=== PATIENT | female | born 1950 | race Caucasian/White ===

== ENCOUNTER 2017-11-16 13:11 | Inpatient (IN) | payer MEDICAID, MEDICARE ==
[2017-11-16 14:57] LABS: BASO % 0.3 % (0.0-2.0); LYMPH # 0.9 K/uL (1.0-4.3); LYMPH % 14.2 % (20.0-40.0); MEAN CORPUSCULAR HEMOGLOBIN 32.1 pg (27.0-31.0); MEAN CORPUSCULAR HGB CONC 34.3 g/dL (33.0-37.0); MONO # 1.9 K/uL (0.0-0.8); NEUT # 3.7 K/uL (1.8-7.0); NEUT % 56.5 % (50.0-75.0); NRBC % 0.1 % (0.0-2.0); PLATELET COUNT 119 K/uL (130-400); RBC 3.64 Mil/uL (3.80-5.20); RED CELL DISTRIBUTION WIDTH 13.3 % (11.5-14.5)
[2017-11-16 15:01] LABS: HEMOGLOBIN 11.7 g/dL (11.0-16.0); MEAN CELL VOLUME 93.5 fL (81.0-99.0); WHITE BLOOD COUNT 6.5 K/uL (4.8-10.8)
[2017-11-16 15:11] LABS: ALBUMIN 3.4 g/dL (3.5-5.0); ALT/SGPT 36 U/L (9-52); AST/SGOT 35 U/L (14-36); BLOOD UREA NITROGEN 19 mg/dL (7-17); CALCIUM 9.1 mg/dl (8.6-10.4); GFR AFRICAN-AMERICAN > 60; GFR NON-AFRICAN AMERICAN > 60; MAGNESIUM 1.6 mg/dL (1.6-2.3)
[2017-11-16 15:22] LABS: CK-MB 3.41 ng/mL (0.0-3.38)
[2017-11-16 15:25] LABS: BANDS 5 % (0-2); LYMPHOCYTE 12 % (20-40); MONOCYTE 23 % (0-10); NEUTROPHIL 60 % (50-75); PLATELET ESTIMATE SLIGHTLY DECREASED (NORMAL); TOTAL CELLS COUNTED 100
--- NOTE | 2017-11-16 16:20 | CT ---
PROCEDURE: CT HEAD WITHOUT CONTRAST. HISTORY: Falls. hit head. COMPARISON: None available. TECHNIQUE: Axial computed tomography images were obtained through the head/brain without intravenous contrast. Radiation dose: Total exam DLP = 1937.94 mGy-cm. This CT exam was performed using one or more of the following dose reduction techniques: Automated exposure control, adjustment of the mA and/or kV according to patient size, and/or use of iterative reconstruction technique. FINDINGS: HEMORRHAGE: No intracranial hemorrhage. BRAIN: A defined hypodensity noted adjacent to the frontal horn of the left lateral ventricle in the left frontal lobe may represent chronic microvascular ischemic disease. The differential consideration includes subacute or chronic small infarction. Mild volume loss is noted. VENTRICLES: Unremarkable. No hydrocephalus. CALVARIUM: Unremarkable. PARANASAL SINUSES: Unremarkable as visualized. No significant inflammatory changes. MASTOID AIR CELLS: Unremarkable as visualized. No inflammatory changes. OTHER FINDINGS: None. IMPRESSION: No evidence of acute intracranial hemorrhage intracranial collection mass effect or midline shift. A defined hypodensity noted in the left frontal lobe adjacent to the frontal horn of the lateral ventricle may represent chronic microvascular ischemic disease versus subacute or chronic infarction. Diffuse atherosclerotic disease.
--- NOTE | 2017-11-16 16:40 | CT ---
PROCEDURE: CT MAXILLOFACIAL BONES WITHOUT CONTRAST HISTORY: Right face pain s/p fall COMPARISON: None TECHNIQUE: Contiguous axial CT images of the maxillofacial bones were obtained. Coronal and sagittal reformats were generated. Radiation dose: Total exam DLP = 898.81 mGy-cm. This CT exam was performed using one or more of the following dose reduction techniques: Automated exposure control, adjustment of the mA and/or kV according to patient size, and/or use of iterative reconstruction technique. FINDINGS: NASAL BONES: Unremarkable. ORBITS: Unremarkable. PARANASAL SINUSES/ MASTOIDS: Mild mucosal thickening noted at the left maxillary sinus. No evidence of air-fluid level in the sinuses. MAXILLA: Unremarkable. MANDIBLE/ TEMPOROMANDIBULAR JOINTS: Unremarkable. SKULL BASE: Unremarkable. TEMPORAL BONES: Middle ears and mastoid grossly unremarkable. OTHER FINDINGS: Mild mucosal thickening noted at the left maxillary sinus. IMPRESSION: No evidence of acute fracture at the maxillofacial bones. No evidence of hematoma or acute pathology in the facial region. Mild sinuses mucosal thickening.
--- NOTE | 2017-11-16 16:59 | C.PDOC ---
History Of Present Illness Pt fell at home today. She does not know why. She has been falling frequently recently. - HPI Time Seen by Provider: 11/16/17 13:14 Chief Complaint (Nursing): Trauma History Per: Patient, EMS Injury Occurred (Timing): Just Before Arrival Location Of Injury: Right: Elbow, Face, Hip, Left: Elbow, Hip, Leg Severity: Moderate Additional History Per: Prior Records Past Medical History Reviewed: Historical Data, Nursing Documentation, Vital Signs Vital Signs: Last Vital Signs Temp 97.3 F L 11/16/17 13:13 Pulse 100 H 11/16/17 13:13 Resp 20 11/16/17 13:13 BP 182/78 H 11/16/17 13:13 Pulse Ox 100 11/16/17 13:13 - Medical History PMH: Anxiety, Arthritis, Asthma, Bipolar Disorder, Depression, Diabetes, HTN, Hypercholesterolemia, Paranoia Surgical History: Appendectomy, Coronary Stent (PCI of the LAD with stent insertion ( [facility]) in 2007 in [place].) - [facility] Procedures EXCIS DEBRIDE OF WOUND, INFECT, OR BURN (02/06/15) INTRODUCTION OF SERUM/TOX/VACCINE INTO MUSCLE, PERC APPROACH (07/01/17) VACCINATION NEC (02/06/15) Family History: States: Unknown Family Hx - Social History Hx Tobacco Use: No Hx Alcohol Use: No Hx Substance Use: No - Immunization History Hx Tetanus Toxoid Vaccination: Yes Hx Influenza Vaccination: Yes Hx Pneumococcal Vaccination: No Review Of Systems Except As Marked, All Systems Reviewed And Found Negative. Constitutional: Negative for: Fever Cardiovascular: Negative for: Chest Pain Respiratory: Negative for: Shortness of Breath Gastrointestinal: Negative for: Vomiting, Abdominal Pain, Diarrhea Musculoskeletal: Positive for: Leg Pain (left). Negative for: Neck Pain, Back Pain Neurological: Negative for: Seizures Physical Exam - Physical Exam Appears: No Acute Distress, Chronically Ill Skin: Warm, Dry Head: No Laceration, Other (Contusion right zygoma area) Eye(s): bilateral: PERRL, EOMI Neck: Normal ROM, No Midline Cervical Tenderness, No Step Off Deformity, Supple Chest: Symmetrical, No Deformity Cardiovascular: Rhythm Regular Respiratory: Normal Breath Sounds, No Accessory Muscle Use Gastrointestinal/Abdominal: Soft, No Tenderness Back: No Vertebral Tenderness Extremity: Normal ROM, Tenderness (left leg, b/l hips, b/l elbows), No Deformity Pulses: Left Radial: Normal, Right Radial: Normal, Left Dorsalis Pedis: Normal Neurological/Psych: Oriented x3, Normal Motor ED Course And Treatment - Laboratory Results Result Diagrams: 11/16/17 14:54 11/16/17 14:54 ECG: Interpreted By Me, Viewed By Me ECG Rhythm: Sinus Rhythm, Nonspecific Changes Interpretation Of ECG: LVH Rate From EC O2 Sat by Pulse Oximetry: 100 Pulse Ox Interpretation: Normal - CT Scan/US CT head Other Rad Studies (CT/US): Read By Radiologist, Radiology Report Reviewed CT/US Interpretation: IMPRESSION: No evidence of acute intracranial hemorrhage intracranial collection mass effect or midline shift. A defined hypodensity noted in the left frontal lobe adjacent to the frontal horn of the lateral ventricle may represent chronic microvascular ischemic disease versus subacute or chronic infarction. Diffuse atherosclerotic disease. CT Facial bones Other Rad Studies (CT/US): Read By Radiologist, Radiology Report Reviewed CT/US Interpretation: IMPRESSION: No evidence of acute fracture at the maxillofacial bones. No evidence of hematoma or acute pathology in the facial region. Mild sinuses mucosal thickening. Disposition Discussed With : Cornell Lynn Comment: He accepted pt on his service. Doctor Will See Patient In The: Hospital Counseled Patient/Family Regarding: Studies Performed, Diagnosis - Disposition Disposition: HOSPITALIZED Disposition Time: 17:02 Condition: FAIR - Clinical Impression Clinical Impression: Frequent falls, Lesion of left frontal lobe of brain
--- NOTE | 2017-11-16 18:09 | RAD ---
PROCEDURE: Radiographs of the pelvis and bilateral hips HISTORY: b/l hip pain s/p fall COMPARISON: None. FINDINGS: BONES: Pelvis: Unremarkable. Right hip:Unremarkable. Left hip:Unremarkable. JOINTS: Right hip: Unremarkable. Left hip: Unremarkable. Sacroiliac Joints: Unremarkable. Pubic symphysis: Unremarkable. SOFT TISSUES: Normal. OTHER FINDINGS: None. IMPRESSION: No evidence of acute fracture or dislocation.
--- NOTE | 2017-11-16 18:18 | RAD ---
PROCEDURE: CHEST RADIOGRAPH, 1 VIEW HISTORY: Falls COMPARISON: None available. FINDINGS: LUNGS: No evidence of focal infiltrate or consolidation in the lungs. Prominent right hilum. PLEURA: No pneumothorax or pleural fluid seen. CARDIOVASCULAR: Normal. OSSEOUS STRUCTURES: No significant abnormalities. VISUALIZED UPPER ABDOMEN: Normal. OTHER FINDINGS: None. IMPRESSION: No radiographic evidence of acute pulmonary disease.
--- NOTE | 2017-11-16 18:18 | RAD ---
PROCEDURE: Radiographs of the left tibia and fibula. HISTORY: Pain s/p fall COMPARISON: None available. TECHNIQUE: Frontal and lateral views obtained. FINDINGS: BONES: No fracture or destructive lesion. JOINT SPACES: Unremarkable. OTHER FINDINGS: None. IMPRESSION: No evidence of acute fracture or dislocation.
--- NOTE | 2017-11-16 18:20 | RAD ---
PROCEDURE: Radiographs of the left elbow. HISTORY: Pain s/p fall COMPARISON: No prior. FINDINGS: BONES: Normal. No fracture. JOINTS: Normal. No osteoarthritis. SOFT TISSUES: Normal. JOINT EFFUSION: None. OTHER FINDINGS: None IMPRESSION: No evidence of acute fracture or dislocation.
[2017-11-16 18:22] LABS: SQUAMOUS EPITHIAL 1 /hpf (0-5); URINE BACTERIA FEW (<OCC); URINE BILIRUBIN NEGATIVE (NEGATIVE); URINE BLOOD 2+ (NEGATIVE); URINE CLARITY Clear (Clear); URINE COLOR Yellow (YELLOW); URINE GLUCOSE (UA) 1+ mg/dL (Normal); URINE LEUKOCYTE ESTERASE 3+ Leu/uL (Negative); URINE NITRATE POSITIVE (NEGATIVE); URINE PROTEIN 2+ mg/dL (NEGATIVE); URINE UROBILINOGEN NORMAL mg/dL (0.2-1.0)
[2017-11-16 18:24] LABS: BARBITURATES, UR NEGATIVE (NEGATIVE); BENZODIAZEPINES, UR NEGATIVE (NEGATIVE); OPIATES, UR NEGATIVE (NEGATIVE); PHENCYCLIDINE, UR NEGATIVE (NEGATIVE)
[2017-11-16] MEDS ORDERED: Potassium Chloride 20 mEq ER Tab PO STA (18:24)
[2017-11-16] MEDS ORDERED: Potassium Chloride 20 mEq ER Tab PO ONE (18:29)
[2017-11-16] MEDS: (Novolog) Insulin Aspart, Recombinant 100 u/ml 10 ml vial SC SCH (21:22)
[2017-11-16] MEDS: (Lantus) Insulin Glargine, Recombinant SC SCH (22:59)
[2017-11-17] MEDS: (Novolog) Insulin Aspart, Recombinant 100 u/ml 10 ml vial SC SCH ×4 (08:07→22:18)
[2017-11-17] MEDS ORDERED: Gadodiamide 287 mg/ml 20 ml IV ONE (11:30)
[2017-11-17] MEDS: Pantoprazole 40 mg EC Tab PO SCH (12:32)
[2017-11-17] MEDS: Potassium Chloride 20 mEq ER Tab PO SCH (12:34)
--- NOTE | 2017-11-17 13:00 | VASCLAB ---
PROCEDURE: HISTORY: Frequent falls. TIA COMPARISON: None available. TECHNIQUE: Grayscale and duplex Doppler evaluation of the cervical carotid and vertebral arteries were performed. The common carotid, carotid bifurcations and cervical Internal Carotid Artery (ICA) and proximal External Carotid Artery (ECA) were evaluated. The vertebral arteries were evaluated for gross patency and flow direction. Report prepared by Kulwant Key, BS, RVT FINDINGS: RIGHT CAROTID ARTERIES: 1. Common Carotid Artery: No significant focal plaque formation of the right common carotid artery. Maximum Peak Systolic velocity: 64 cm/sec: End-diastolic velocity 14 cm/sec. 2. Carotid Bifurcation: Calcific plaque formation. Maximum Peak Systolic velocity: 72 cm/sec: End-diastolic velocity 13 cm/sec. 3. Internal Carotid Artery: Plaque description: 3.1. Proximal Segment: Peak systolic velocity 96 cm/sec: End-diastolic velocity 12 cm/sec - % stenosis 0-15% 3.2. Middle Segment: Peak systolic velocity 106 cm/sec: End-diastolic velocity 17 cm/sec - % stenosis 0-15% 3.3. Distal Segment: Peak systolic velocity 127 cm/sec: End-diastolic velocity 18 cm/sec - % stenosis 0-15% 4. External Carotid Artery: No significant focal plaque formation. Peak systolic velocity 204 cm/sec 5. ICA/CCA Ratio: 2.0 LEFT CAROTID ARTERIES: 1. Common Carotid Artery: No significant focal plaque formation of the left common carotid artery. Maximum Peak Systolic velocity: 111 cm/sec: End-diastolic velocity 13 cm/sec. 2. Carotid Bifurcation: plaque formation. Maximum Peak Systolic velocity: 85 cm/sec: End-diastolic velocity 0 cm/sec. 3. Internal Carotid Artery: Plaque description: 3.1. Proximal Segment: Peak systolic velocity 76 cm/sec: End-diastolic velocity 15 cm/sec - % stenosis 0-15% 3.2. Middle Segment: Peak systolic velocity 79 cm/sec: End-diastolic velocity 11 cm/sec - % stenosis 0-15% 3.3. Distal Segment: Peak systolic velocity 133 cm/sec: End-diastolic velocity 13 cm/sec - % stenosis 0-15% 4. External Carotid Artery: No significant focal plaque formation. Peak systolic velocity 120 cm/sec 5. ICA/CCA Ratio: 1.2 VERTEBRAL ARTERIES: 1. Right Vertebral Artery: The right vertebral artery flow direction is antegrade. 2. Left Vertebral Artery: The left vertebral artery flow direction is antegrade. OTHER FINDINGS: 1. Right Brachial Blood pressure: 186 mmHg. 2. Left Brachial Blood pressure: 170 mmHg. IMPRESSION: RIGHT: Duplex scan does not suggest hemodynamically significant stenosis of the right extracranial carotid arteries. LEFT: Duplex scan does not suggest hemodynamically significant stenosis of the left extracranial carotid arteries.
[2017-11-17] MEDS: Ciprofloxacin 200mg/100ml D5W 100 ML IVPB SCH (13:04)
--- NOTE | 2017-11-17 14:37 | MRI ---
PROCEDURE: MRI BRAIN WITH AND WITHOUT CONTRAST HISTORY: Frequent falls, left frontal hypodensity COMPARISON: Unenhanced head CT dated 11/16/2017. TECHNIQUE: Multiplanar, multisequence MR images of the brain were obtained with and without intravenous contrast enhancement. FINDINGS: HEMORRHAGE: None DWI: No evidence of an acute or early subacute infarction. BRAIN PARENCHYMA: Diffuse cerebral atrophy chronic microangiopathy are reiterated the current MR examination with a prior left frontal lucency remarkable for a small chronic lobar infarction at the medial left frontal lobe. A large chronic lacune is seen at the right basal ganglia once again. There is no mass effect or suspicious extra-axial fluid collection identified. Diffusion-weighted imaging is somewhat limited at the level of the upper to mid brainstem, particularly at the wally, with chronic microangiopathy identified within the wally only) relative to the remainder the brainstem). Midline brain anatomy is otherwise unremarkable appearing. There is no suspicious extra-axial fluid collection or abnormal intracranial enhancement identified. VENTRICLES: Unremarkable. No hydrocephalus. CRANIUM: Unremarkable. ORBITS: Grossly unremarkable. PARANASAL SINUSES/MASTOIDS: Trace bilateral mastoiditis is questioned though this is not definite. Mucosal inflammatory changes are identified affecting bilateral frontal ethmoid and left maxillary sinuses. VASCULAR SYSTEM: Skull base flow voids intact. OTHER FINDINGS: None . IMPRESSION: Stable age related neuro degenerative changes are identified with a small left frontal lobar infarction identified as well as large chronic lacune right basal ganglia. No abnormal intracranial enhancement is appreciated throughout. Dental hardware obscures diffusion-weighted imaging somewhat.
[2017-11-17] MEDS: (Lantus) Insulin Glargine, Recombinant SC SCH (22:18)
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
--- NOTE | 2017-11-17 23:59 | CARD ---
APPROVED REPORT EKG Measurement Heart [id number] IA [id number] <Conclusion> Normal sinus rhythm Voltage criteria for left ventricular hypertrophy Abnormal ECG
[2017-11-18] MEDS: Ciprofloxacin 200mg/100ml D5W 100 ML IVPB SCH ×2 (01:10→12:45)
[2017-11-18 07:14] LABS: HEMOGLOBIN 11.7 g/dL (11.0-16.0)
[2017-11-18 07:25] LABS: MEAN CELL VOLUME 94.7 fL (81.0-99.0); MEAN CORPUSCULAR HGB CONC 33.8 g/dL (33.0-37.0); MEAN PLATELET VOLUME 10.4 fL (7.2-11.7); PLATELET COUNT 113 K/uL (130-400); RBC 3.66 Mil/uL (3.80-5.20); RED CELL DISTRIBUTION WIDTH 13.6 % (11.5-14.5); WHITE BLOOD COUNT 4.8 K/uL (4.8-10.8)
[2017-11-18 08:14] LABS: BLOOD UREA NITROGEN 15 mg/dL (7-17); CALCIUM 9.4 mg/dl (8.6-10.4); GFR AFRICAN-AMERICAN > 60; GFR NON-AFRICAN AMERICAN > 60
[2017-11-18 09:04] LABS: LYMPH # 1.2 K/uL (1.0-4.3); MONO # 1.8 K/uL (0.0-0.8); NEUT # 1.9 K/uL (1.8-7.0)
[2017-11-18 09:05] LABS: LYMPHOCYTE 25 % (20-40); MONOCYTE 37 % (0-10); NEUTROPHIL 38 % (50-75); TOTAL CELLS COUNTED 100
[2017-11-18 09:07] LABS: OVALOCYTES SLIGHT; PLATELET ESTIMATE SLIGHTLY DECREASED (NORMAL)
[2017-11-18] MEDS: Potassium Chloride 20 mEq ER Tab PO SCH (09:38)
[2017-11-18] MEDS: Pantoprazole 40 mg EC Tab PO SCH (09:38)
[2017-11-18] MEDS: (Novolog) Insulin Aspart, Recombinant 100 u/ml 10 ml vial SC SCH ×4 (09:38→22:09)
--- NOTE | 2017-11-18 12:45 | PN ---
DATE: 11/18/2017 SUBJECTIVE: The patient is seen. The patient is tolerating reduction of dose of Topamax, but she states she feels weak and she wants to go for rehab. The patient continues to have this persistent paranoid delusion that somebody is trying to hurt her. Other than that, she has been compliant with being in the hospital. No behavioral problems despite her chronic delusions. The blood sugar is now 233. She said that she is interested to go for subacute rehab, possibly the one in [facility]. PHYSICAL EXAMINATION VITAL SIGNS: Temperature is 98, pulse rate 90, blood pressure 166/82, respirations 20, oxygen sat is 100%. GENERAL: Patient is alert, verbal. She is in room conversing Tagalog with daughter and states she is feeling a little better, but still is weak. SKIN: No diaphoresis. HEENT: No headache, no dizziness. RESPIRATORY: No dyspnea. CARDIOVASCULAR: No chest pain. GASTROINTESTINAL: Patient is eating well. EXTREMITIES: Gait is unsteady with tremors. MUSCULOSKELETAL: Feels weak. NEUROLOGIC: Alert and oriented times 3. GENITOURINARY: She is complaining of dysuria, although the patient is currently receiving antibiotics for UTI. MENTAL STATUS EXAMINATION: Elderly female of [place] descent, oriented times 3. Speech is spontaneous, conversing Tagalog. Affect is reactive. Mood is calm. Thought process coherent. Thought content, has chronic paranoid delusion that somebody is trying to hurt her. This is the complaint she has for years. No suicidal or homicidal ideation. Attention and memory seems to be fair. Insight and judgment limited. Impulse control is fair at this time. ASSESSMENT AND PLAN: History of delusional disorder, paranoid type; urinary tract infection; gait dysfunction; diabetes; history of cerebrovascular accident. PLAN AND RECOMMENDATIONS: The patient was seen. Medications reviewed. Continue present management. Continue Topamax as ordered. The patient is for subacute rehab once medically cleared. Miguelangel Javier MD
--- NOTE | 2017-11-18 14:12 | CP.PCM.PN ---
Subjective - Date & Time of Evaluation Date of Evaluation: 11/18/17 Time of Evaluation: 14:10 - Subjective Subjective: Patient is still weak, with unstable gait. Evaluated by Dr Russell Arellano ( Neurologist today) and is put back on ASA 81 mg PO qd. Objective - Vital Signs/Intake and Output Vital Signs (last 24 hours): Temp Pulse Resp BP Pulse Ox 98 F 96 H 20 156/82 H 100 11/18/17 07:00 11/18/17 09:00 11/18/17 07:00 11/18/17 09:00 11/18/17 07:00 Intake and Output: 11/18/17 11/18/17 06:59 18:59 Intake Total 520 Balance 520 - Medications Medications: Current Medications Amlodipine Besylate (Norvasc) 5 mg PO DAILY [facility] Last Admin: 11/18/17 09:38 Dose: 5 mg Bupropion HCl (Wellbutrin) 200 mg PO DAILY [facility] Last Admin: 11/18/17 10:53 Dose: 200 mg Clopidogrel Bisulfate (Plavix) 75 mg PO DAILY [facility] Last Admin: 11/18/17 09:38 Dose: 75 mg Heparin Sodium (Porcine) (Heparin) 5,000 units SC Q8 [facility] Last Admin: 11/18/17 05:43 Dose: 5,000 units Ciprofloxacin (Cipro 200mg/100ml D5w) 100 mls @ 67 mls/hr IVPB Q12H [facility] Last Admin: 11/18/17 12:45 Dose: 67 mls/hr Insulin Aspart (Novolog) 0 unit SC ACHS [facility] PRN Reason: Protocol Last Admin: 11/18/17 12:44 Dose: 6 unit Insulin Glargine (Lantus) 30 unit SC [facility] Last Admin: 11/17/17 22:18 Dose: 30 units Losartan Potassium (Cozaar) 100 mg PO DAILY [facility] Last Admin: 11/18/17 09:38 Dose: 100 mg Montelukast Sodium (Singulair) 10 mg PO HS [facility] Last Admin: 11/17/17 22:17 Dose: 10 mg Pantoprazole Sodium (Protonix Ec Tab) 40 mg PO DAILY [facility] Last Admin: 11/18/17 09:38 Dose: 40 mg Potassium Chloride (K-Dur 20 Meq Er Tab) 20 meq PO DAILY [facility] Stop: 11/19/17 12:31 Last Admin: 11/18/17 09:38 Dose: 20 meq Rosuvastatin Calcium (Crestor) 5 mg PO HS [facility] Last Admin: 11/17/17 22:17 Dose: 5 mg Topiramate (Topamax) 100 mg PO HS [facility] - Labs Labs: 11/18/17 07:10 11/18/17 07:10 PT 11.0 SECONDS (9.7-12.2) 11/16/17 14:54 INR 1.0 11/16/17 14:54 APTT 32 SECONDS (21-34) 11/16/17 14:54 - Constitutional Appears: No Acute Distress, Chronically Ill - Head Exam Head Exam: NORMAL INSPECTION - Eye Exam Eye Exam: Normal appearance - ENT Exam ENT Exam: Normal Exam - Neck Exam Neck Exam: Normal Inspection - Respiratory Exam Respiratory Exam: Clear to Ausculation Bilateral, NORMAL BREATHING PATTERN - Cardiovascular Exam Cardiovascular Exam: REGULAR RHYTHM, Murmur - GI/Abdominal Exam GI & Abdominal Exam: Soft, Normal Bowel Sounds - Rectal Exam Rectal Exam: Deferred - Exam Exam: NORMAL INSPECTION - Extremities Exam Extremities Exam: Normal Inspection - Back Exam Back Exam: NORMAL INSPECTION - Neurological Exam Neurological Exam: Alert, Awake, Oriented x3 Additional comments: Unsteady gait. - Psychiatric Exam Psychiatric exam: Manic - Skin Skin Exam: Dry, Intact, Normal Color, Warm Assessment and Plan (1) Frequent falls Assessment & Plan: Being evaluated by Dr Russell Arellano ( Neurologist). Status: Acute (2) Paranoid states (delusional disorders) Assessment & Plan: Topamax dosage is being adjusted by Dr Helm( Psychiatrist). Status: Chronic (3) Insulin dependent diabetes mellitus Status: Chronic (4) Urinary tract infection Assessment & Plan: Urine culture pending. Continue Cipro IV. Status: Acute
--- NOTE | 2017-11-18 15:08 | CON ---
DATE: NEUROLOGY CONSULTATION REASON FOR CONSULTATION: Frequent falls. HISTORY OF PRESENTING ILLNESS: The patient is a 67-year-old female who has been asked for evaluation of frequent falls. Apparently the patient fell the other day and that is why she came to the hospital. Patient states she was trying to get out of the bed and walk when she felt that something pushed her and she fell down. She has been falling on and off. Patient had a recent stroke and after that her gait has gotten impaired. She denies any focal weakness on arms or legs. At present, denies having any dizziness or chest pain. She walks with the help of a cane. REVIEW OF SYSTEMS: Denies any headache, dizziness, chest pain, shortness of breath, abdominal pain, constipation, diarrhea, dysuria, cough or sputum production. PAST MEDICAL HISTORY: Includes arthritis, asthma, bipolar disorder, depression, diabetes mellitus, hypertension, hypercholesterolemia. MEDICATIONS AT HOME: Included Plavix, Wellbutrin, Lipitor, Norvasc, topiramate, Protonix, Benicar, Singulair and insulin. ALLERGIES: PENICILLIN. SOCIAL HISTORY: Denies smoking, use of alcohol or illicit drugs. FAMILY HISTORY: Reviewed and noncontributory to the case. PHYSICAL EXAMINATION: GENERAL: Patient is an elderly female, sitting, in no acute distress. VITAL SIGNS: Her blood pressure is 166/83, heart rate is 87 per minute, breathing at a rate of 16 per minute, temperature is 98 degrees Fahrenheit. HEENT: Head is normocephalic and atraumatic. NECK: Supple. There are no carotid bruits. LUNGS: Clear. CARDIOVASCULAR SYSTEM: S1, S2 audible. No murmurs. ABDOMEN: Soft, nontender. Bowel sounds present. NEUROLOGIC: Mental status: Patient is awake, alert, oriented to time, place and person. Speech is fluent. Naming and repetition normal. Memory and cognition are intact. Cranial nerves: Pupils are 3 mm bilaterally reactive to light. Visual maya are full. Extraocular movements are intact. There is no facial asymmetry. She is moving all 4 extremities symmetrically. Power appears to be 5/5 all over. Reflexes 1+ and symmetrical with absent ankle jerks. Plantars downgoing bilaterally. Cerebellar: [id number] shows no dysmetria. Gait is slow and slightly unsteady. Romberg is negative. Sensory: There is slight decreased vibration in feet. LABORATORY DATA: Reviewed, shows WBC of 4.8, hemoglobin 11.7, hematocrit 34.6 and platelets of 113. Sodium is 133, potassium 4.1, chloride of 103, carbon dioxide content of 24, BUN of 15, creatinine 0.9 and glucose of 233. She had MRI of the brain done, which shows stable age-related neuro degenerative changes with small left frontal lobar infarction identified as well as large chronic , right basal ganglia. There are no abnormal intracranial enhancement. IMPRESSION: 1. Frequent falls with gait dysfunction. 2. Cerebrovascular disease with old cerebrovascular accident. RECOMMENDATIONS: 1. Patient to have an electroencephalogram. 2. Patient to have physical therapy for gait imbalance. 3. Patient to be continued on antiplatelet agent, which she was on at home. At the moment, she is on Plavix, which is to be continued. 4. Patient also to be continued on statin. 5. Patient is a good candidate for rehabilitation placement for her gait training. 6. Please continue supportive care and other treatment. Thank you for the opportunity to participate in the care of this patient. Russell Arellano MD
--- NOTE | 2017-11-18 21:32 | EEG ---
DATE: This is an EEG report. INTRODUCTION: This is a digitally recorded EEG monitoring using the standard EEG montages. BACKGROUND RHYTHM: The EEG shows a background activity of 9 to 10 Hz alpha activity in parietooccipital region. The EEG activity is bilaterally symmetrical and synchronous. There is attenuation of the background activity on eye opening. Drowsiness was noted by slowing of the background activity. No sleep recording was noted. ABNORMAL POTENTIALS: No spike, sharp waves or focal slowing was seen. PHOTIC STIMULATION AND HYPERVENTILATION: Photic stimulation did not reveal any abnormality. Hyperventilation was not performed. IMPRESSION: Normal electroencephalogram. No epileptiform activity is seen in this electroencephalogram recording. Russell Arellano MD
[2017-11-18] MEDS: (Lantus) Insulin Glargine, Recombinant SC SCH (22:10)
[2017-11-19] MEDS: Ciprofloxacin 200mg/100ml D5W 100 ML IVPB SCH ×2 (01:30→12:21)
[2017-11-19] MEDS: (Novolog) Insulin Aspart, Recombinant 100 u/ml 10 ml vial SC SCH ×3 (08:21→17:15)
[2017-11-19] MEDS: Potassium Chloride 20 mEq ER Tab PO SCH (09:25)
[2017-11-19] MEDS: Pantoprazole 40 mg EC Tab PO SCH (09:25)
--- NOTE | 2017-11-19 12:00 | PN ---
DATE: 11/19/2017 NEUROLOGY PROGRESS NOTE SUBJECTIVE: The patient is lying on the bed in no acute distress. Denies any headache. Complains of occasional dizziness. PHYSICAL EXAMINATION VITAL SIGNS: Her blood pressure is 168/81, heart rate is 73 per minute, breathing at the rate of 16 per minute, temperature is 97.9 degree Fahrenheit. HEENT: Normocephalic and atraumatic. NECK: Supple. There are no carotid bruits. LUNGS: Clear. CARDIOVASCULAR: S1 and S2, audible. No murmurs. ABDOMEN: Soft and nontender with bowel sounds present. NEUROLOGIC: Mental status: The patient is awake, alert, and oriented to time, place and person. Speech is fluent. Naming and repetition normal. Memory and cognition are intact. Cranial Nerve Examination: Pupils are 3 mm bilaterally, reactive to light. Visual maya are full. Extraocular movements are intact. There is no facial asymmetry. Palate is upgoing bilaterally and tongue is midline. Motor Examination: Tone is normal. Power is 4-5/5 bilaterally in all extremities. Plantars are downgoing bilaterally. Gait remains unsteady. IMPRESSION: 1. Frequent falls with gait dysfunction. 2. Cerebrovascular disease with old cerebrovascular accident. 3. Occasional dizziness. RECOMMENDATIONS: 1. Patient had an electroencephalogram, which was normal. 2. Patient to continue to have physical therapy for gait and balance. 3. Patient is on Plavix, which is to be continued. 4. Patient also to be continued on statin. 5. If patient continues to have dizziness, we will consider trial of meclizine. 6. Patient is a good candidate for rehabilitation placement. 7. Please continue other treatments and supportive care. Thank you for the opportunity to participate in the care of this patient. Russell Arellano MD
[2017-11-19 15:51] VITALS: BP 120/71; RESP 18; TEMP 98.4; O2SAT 98
[2017-11-19 16:56] VITALS: PULSE 74
--- NOTE | 2017-11-19 18:21 | PN ---
DATE: 11/19/2017 SUBJECTIVE: The patient is seen. The patient is feeling much better, awaiting medical clearance. The patient will be possibly transferred to [facility] for subacute rehab. Psych jose, the patient is close to baseline. She has been compliant with her medications and has chronic paranoid delusions but redirectable. She has been complaint with care. PHYSICAL EXAMINATION: VITAL SIGNS: Temperature is 97.9, pulse rate is 84, blood pressure is 168/81, respirations 20, and oxygen sat is 100% on room air. REVIEW OF SYSTEMS: GENERAL: The patient is alert and oriented x3, seen in her room. She states she is worried about her soiled clothes that need to be washed at home. The patient states she might be going to [facility] for subacute rehab. SKIN: No diaphoresis. HEENT: No headache. No dizziness. NECK: Supple. RESPIRATORY: No dyspnea. CARDIOVASCULAR: No chest pain. GASTROINTESTINAL: She is eating well. EXTREMITIES: Gait is still weak. No tremors. MUSCULOSKELETAL: Feels weak. NEUROLOGIC: Alert and oriented x3. GENITOURINARY: Not complaining of dysuria or hematuria. MENTAL STATUS EXAMINATION: Elderly female of [place] descent, oriented x3. Mood is calm. Affect is reactive. Speech is spontaneous. Thought process coherent. Thought content, still has chronic paranoid delusion that somebody is trying to do bad things to her. No suicidal thought or ideation. No hallucinations. Attention and memory seem to be fair. Insight and judgement limited. Impulse control is fair at this time. IMPRESSION: History of urinary tract infection as well as delusional disorder, paranoid type. PLAN AND RECOMMENDATION: The patient is seen. Meds reviewed. Continue present psych meds. The patient is for subacute rehab to [facility] once medically cleared. The patient also is taking antibiotics for her UTI. Psych jose, the patient is stable to be transferred to [facility] once medically cleared. She has chronic paranoid delusion, but this has been going on for many years and the patient is manageable without any antipsychotics. Miguelangel Javier MD [facility] # [id number]
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
== END 2017-11-19 21:28 | DRG 92 ==
LOC: C.ER 13:11 → C.9E 17:03 → C.6T 17:22
PROVIDERS: ADMIT Internal Medicine Cardiovascular Disease; ATTEND Internal Medicine Cardiovascular Disease
DX: R29.6 Repeated falls (principal); N39.0 Urinary tract infection, site not specified; E11.42 Type 2 diabetes mellitus with diabetic polyneuropathy; I69.354 Hemiplegia and hemiparesis following cerebral infarction affecting left non-dominant side; F22 Delusional disorders; F60.0 Paranoid personality disorder; I10 Essential (primary) hypertension; R27.0 Ataxia, unspecified; F31.9 Bipolar disorder, unspecified; I25.10 Atherosclerotic heart disease of native coronary artery without angina pectoris; E78.5 Hyperlipidemia, unspecified; M17.0 Bilateral primary osteoarthritis of knee; E78.00 Pure hypercholesterolemia, unspecified; M81.0 Age-related osteoporosis without current pathological fracture; Z79.4 Long term (current) use of insulin; Z79.82 Long term (current) use of aspirin; Z79.899 Other long term (current) drug therapy; Z87.440 Personal history of urinary (tract) infections; Z87.891 Personal history of nicotine dependence; Z95.5 Presence of coronary angioplasty implant and graft

== ENCOUNTER 2017-11-23 12:06 | Inpatient (IN) | payer MEDICARE ==
[2017-11-23 12:08] VITALS: BMI 33.0
[2017-11-23] MEDS ORDERED: Sodium Chloride 0.9% 1,000 ML IV ONE (12:31)
--- NOTE | 2017-11-23 12:38 | C.PDOC ---
History Of Present Illness Patient brought in by EMS from [facility] for evaluation of tachycardia and anxiety, as per EMS and transfer forms. Patient complains she feels weak, has been vomiting for 3 days. She complains of back pain, points to bilateral flanks and hips. She reports decreased appetite and unable to keep fluids down. She states she has no bowel movement for 3 days, but is passing gas. Denies any falls, fever or trauma. Patient has history of CVA with a left hemiparesis in 2003, IDDM, Bipolar disorder with paranoia. Time Seen by Provider: 11/23/17 12:21 Chief Complaint (Nursing): Abdominal Pain History Per: Patient History/Exam Limitations: no limitations Onset/Duration Of Symptoms: Days Past Medical History Reviewed: Historical Data, Nursing Documentation, Vital Signs Vital Signs: Last Vital Signs Temp 97.6 F 11/23/17 16:08 Pulse 99 H 11/23/17 16:08 Resp 20 11/23/17 16:08 BP 165/80 H 11/23/17 16:08 Pulse Ox 99 11/23/17 16:08 - Medical History PMH: Anxiety, Arthritis, Asthma, Bipolar Disorder, Depression, Diabetes, HTN, Hypercholesterolemia, Osteoporosis, Paranoia Surgical History: Appendectomy, Coronary Stent (PCI of the LAD with stent insertion ( [facility]) in 2007 in [place].) - [facility] Procedures EXCIS DEBRIDE OF WOUND, INFECT, OR BURN (02/06/15) INTRODUCTION OF SERUM/TOX/VACCINE INTO MUSCLE, PERC APPROACH (07/01/17) VACCINATION NEC (02/06/15) Family History: States: No Known Family Hx - Social History Hx Tobacco Use: No Hx Alcohol Use: No Hx Substance Use: No - Immunization History Hx Tetanus Toxoid Vaccination: Yes Hx Influenza Vaccination: Yes Hx Pneumococcal Vaccination: Yes Review Of Systems Except As Marked, All Systems Reviewed And Found Negative. Constitutional: Positive for: Weakness. Negative for: Fever Cardiovascular: Negative for: Chest Pain Respiratory: Negative for: Shortness of Breath Gastrointestinal: Positive for: Vomiting Musculoskeletal: Positive for: Back Pain Neurological: Negative for: Numbness Physical Exam - Physical Exam Appears: Non-toxic, Chronically Ill, Other (Dehydrated) Skin: Warm, Dry, No Rash Head: Atraumatic, Normacephalic Eye(s): bilateral: Normal Inspection, PERRL, EOMI Oral Mucosa: Moist Lips: Other (Dry) Chest: Symmetrical, No Tenderness Cardiovascular: Rhythm Regular, No Murmur Respiratory: Normal Breath Sounds, No Rales, No Rhonchi, No Stridor, No Wheezing Gastrointestinal/Abdominal: Bowel Sounds (active), Soft, No Tenderness, No Guarding, Other (obese) Extremity: Normal ROM, Other (chronic vascular changes to bilateral legs) Neurological/Psych: Oriented x3, Normal Speech Gait: Unable To Assess ED Course And Treatment - Laboratory Results Result Diagrams: 11/23/17 12:51 11/23/17 12:51 O2 Sat by Pulse Oximetry: 98 (RA) Pulse Ox Interpretation: Normal - CT Scan/US CT - Abd & Pelvis Other Rad Studies (CT/US): Read By Radiologist, Radiology Report Reviewed CT/US Interpretation: PROCEDURE: CT Abdomen and Pelvis without intravenous contrast. HISTORY: Bilateral flank pain and left hip pain. COMPARISON: None. TECHNIQUE: Technique. Unenhanced study. Neither oral nor intravenous contrast administered. Radiation dose: Total exam DLP = 101.10 mGy-cm. This CT exam was performed using one or more of the following dose reduction techniques: Automated exposure control, adjustment of the mA and/or kV according to patient size, and/or use of iterative reconstruction technique. FINDINGS: LOWER THORAX: Moderate-size hiatal hernia. LIVER: Unremarkable. No gross lesion or ductal dilatation. GALLBLADDER AND BILE DUCTS: Unremarkable. PANCREAS: Unremarkable. No gross lesion or ductal dilatation. SPLEEN: Unremarkable. ADRENALS: Right adrenal gland: Unremarkable. No mass. Left adrenal gland: Cystic well-circumscribed mass 2 cm mean Hounsfield unit values 0.25. KIDNEYS AND URETERS: Unremarkable. No hydronephrosis. No solid mass. VASCULATURE: Unremarkable. No aortic aneurysm. BOWEL: Constipation without fecal impaction or obstruction. APPENDIX: No abnormalities to suggest acute appendicitis. No right lower quadrant inflammatory processes identified. PERITONEUM: Unremarkable. No free fluid. No free air. LYMPH NODES: Unremarkable. No enlarged lymph nodes. BLADDER: Unremarkable. REPRODUCTIVE: Unremarkable. BONES: No acute fracture. OTHER FINDINGS: None. IMPRESSION: No acute findings related to/accounting for the clinical presentation. Additional benign and/or incidental findings described above. Medical Decision Making Medical Decision Making: Impression: Vomiting, dehydration Prior records reviewed patient was seen and admitted on 11/16/17 for frequent falls, UTI Plan: * Labs * IV NS, Zofran * CT Progress Lab reviewed Sodium low. Patient reevaluated and states she feels minimally better, she feels weak and does not want to go back to [place]. She asks to contact her doctor. [id number] Liban Lynn to discuss case. Ok to keep for observation, continue with fluids. Disposition - Disposition Disposition: HOSPITALIZED Disposition Time: 14:46 Condition: STABLE - POA Present On Arrival: Poor Glycemic Control - Clinical Impression Clinical Impression: Diabetes mellitus, Dehydration - PA / CARE CONNECTOR / Resident Statement MD/DO has reviewed & agrees with the documentation as recorded. - Scribe Statement The provider has reviewed the documentation as recorded by the Scribe Xi Monroe All medical record entries made by the Scribe were at my direction and personally dictated by me. I have reviewed the chart and agree that the record accurately reflects my personal performance of the history, physical exam, medical decision making, and the department course for this patient. I have also personally directed, reviewed, and agree with the discharge instructions and disposition. Decision To Admit - Pt Status Changed To: Hospital Disposition Of: Observation - . Bed Request Type: Regular Admitting Physician: Cornell Lynn Patient Diagnosis: Diabetes mellitus, Dehydration
[2017-11-23] MEDS ORDERED: Sodium Chloride 0.9% 1,000 ML ONE ×2 (12:43→15:21)
[2017-11-23 12:56] LABS: BASO % 0.1 % (0.0-2.0); HEMOGLOBIN 11.5 g/dL (11.0-16.0); MONO # 1.7 K/uL (0.0-0.8)
[2017-11-23 13:02] LABS: LYMPH # 0.3 K/uL (1.0-4.3); LYMPH % 3.5 % (20.0-40.0); MEAN CELL VOLUME 93.7 fL (81.0-99.0); MEAN CORPUSCULAR HEMOGLOBIN 32.5 pg (27.0-31.0); MEAN CORPUSCULAR HGB CONC 34.7 g/dL (33.0-37.0); MEAN PLATELET VOLUME 10.7 fL (7.2-11.7); NEUT # 5.5 K/uL (1.8-7.0); NEUT % 73.6 % (50.0-75.0); RBC 3.53 Mil/uL (3.80-5.20); RED CELL DISTRIBUTION WIDTH 13.3 % (11.5-14.5)
[2017-11-23 13:04] LABS: PLATELET COUNT 83 K/uL (130-400); WHITE BLOOD COUNT 7.4 K/uL (4.8-10.8)
[2017-11-23 13:05] LABS: MONO % 22.8 % (0.0-10.0)
[2017-11-23 13:15] LABS: ALBUMIN 3.5 g/dL (3.5-5.0); ALT/SGPT 95 U/L (9-52); AST/SGOT 78 U/L (14-36); BLOOD UREA NITROGEN 17 mg/dL (7-17); CALCIUM 8.9 mg/dl (8.6-10.4); GFR AFRICAN-AMERICAN > 60; GFR NON-AFRICAN AMERICAN > 60; MAGNESIUM 1.7 mg/dL (1.6-2.3)
--- NOTE | 2017-11-23 13:30 | CT ---
PROCEDURE: CT Abdomen and Pelvis without intravenous contrast HISTORY: Bilateral flank pain and left hip pain COMPARISON: None. TECHNIQUE: Technique. Unenhanced study. Neither oral nor intravenous contrast administered. Radiation dose: Total exam DLP = 101.10 mGy-cm. This CT exam was performed using one or more of the following dose reduction techniques: Automated exposure control, adjustment of the mA and/or kV according to patient size, and/or use of iterative reconstruction technique. FINDINGS: LOWER THORAX: Moderate-size hiatal hernia. LIVER: Unremarkable. No gross lesion or ductal dilatation. GALLBLADDER AND BILE DUCTS: Unremarkable. PANCREAS: Unremarkable. No gross lesion or ductal dilatation. SPLEEN: Unremarkable. ADRENALS: Right adrenal gland: Unremarkable. No mass. Left adrenal gland: Cystic well-circumscribed mass 2 cm mean Hounsfield unit values 0.25. KIDNEYS AND URETERS: Unremarkable. No hydronephrosis. No solid mass. VASCULATURE: Unremarkable. No aortic aneurysm. BOWEL: Constipation without fecal impaction or obstruction. APPENDIX: No abnormalities to suggest acute appendicitis. No right lower quadrant inflammatory processes identified. PERITONEUM: Unremarkable. No free fluid. No free air. LYMPH NODES: Unremarkable. No enlarged lymph nodes. BLADDER: Unremarkable. REPRODUCTIVE: Unremarkable. BONES: No acute fracture. OTHER FINDINGS: None. IMPRESSION: No acute findings related to/accounting for the clinical presentation. Additional benign and/or incidental findings described above.
[2017-11-23 13:40] LABS: BANDS 1 % (0-2); LYMPHOCYTE 8 % (20-40); MONOCYTE 15 % (0-10); NEUTROPHIL 76 % (50-75); PLATELET ESTIMATE DECREASED (NORMAL); TOTAL CELLS COUNTED 100
[2017-11-23 14:27] LABS: SQUAMOUS EPITHIAL 1 /hpf (0-5); URINE BILIRUBIN NEGATIVE (NEGATIVE); URINE BLOOD NEGATIVE (NEGATIVE); URINE CLARITY Clear (Clear); URINE COLOR Yellow (YELLOW); URINE GLUCOSE (UA) 3+ mg/dL (Normal); URINE LEUKOCYTE ESTERASE NEG Leu/uL (Negative); URINE NITRATE NEGATIVE (NEGATIVE); URINE PROTEIN 2+ mg/dL (NEGATIVE); URINE UROBILINOGEN NORMAL mg/dL (0.2-1.0)
[2017-11-23] MEDS ORDERED: Sodium Chloride 0.9% 1,000 ML IV SCH (15:00)
[2017-11-23] MEDS: Sodium Chloride 0.9% 1,000 ML IV SCH (18:40)
[2017-11-23] MEDS: (Novolog) Insulin Aspart, Recombinant 100 u/ml 10 ml vial SC SCH (21:33)
[2017-11-23] MEDS: (Lantus) Insulin Glargine, Recombinant SC SCH (21:36)
[2017-11-24] MEDS: Sodium Chloride 0.9% 1,000 ML IV SCH ×2 (05:30→20:00)
[2017-11-24] MEDS: (Novolog) Insulin Aspart, Recombinant 100 u/ml 10 ml vial SC SCH ×4 (08:17→21:31)
[2017-11-24 09:19] LABS: ALBUMIN 3.3 g/dL (3.5-5.0); ALT/SGPT 70 U/L (9-52); AST/SGOT 51 U/L (14-36); BLOOD UREA NITROGEN 16 mg/dL (7-17); CALCIUM 7.8 mg/dl (8.6-10.4); GFR AFRICAN-AMERICAN > 60; GFR NON-AFRICAN AMERICAN > 60
--- NOTE | 2017-11-24 20:41 | CP.PCM.HP ---
History of Present Illness - History of Present Illness History of Present Illness: 67 years old female complaining of nausea, vomiting, abdominal pain while in the subacute rehabilitation following frequent falls at home. She was aslo complaining of a severe low back pain radiating both hips, preventing her from walking. She denies any recent fall, and admits not to have any BM for 3 days prior to the vomiting. She is known to a schizophrenia, an IDDM, a diabetic neuropathy, a HPTN, a CAD, a s/p CVA, and osteoarthritis of the knees. In the Ed , a CT scan of the abdomen and pelvis did not reveal any acute pathology. She was given IVF because of dehydration. Present on Admission - Present on Admission Any Indicators Present on Admission: No Review of Systems - Gastrointestinal Gastrointestinal: Abdominal Pain, Diarrhea, Nausea, Vomiting - Musculoskeletal Musculoskeletal: Back Pain - Neurological Neurological: Disequilibrium, Weakness - Psychiatric Psychiatric: Hallucinations Past Patient History - Infectious Disease Hx of Infectious Diseases: None - Tetanus Immunizations Tetanus Immunization: Unknown - Past Medical History & Family History Past Medical History?: Yes - Past Social History Smoking Status: Former Smoker Alcohol: None Home Situation {Lives}: Alone Domestic Violence: Negative - CARDIAC Hx Hypercholesterolemia: Yes Hx Hypertension: Yes - PULMONARY Hx Asthma: Yes - NEUROLOGICAL Hx Neurological Disorder: Yes HX Cerebrovascular Accident: Yes ( (blood clot left side of brain resolved as per pt.)) - HEENT Hx HEENT Problems: Yes Other/Comment: wear eyeglasses - RENAL Hx Chronic Kidney Disease: No - ENDOCRINE/METABOLIC Hx Endocrine Disorders: Yes Hx Diabetes Mellitus Type 1: Yes - HEMATOLOGICAL/ONCOLOGICAL Hx Blood Disorders: No - INTEGUMENTARY Hx Dermatological Problems: Yes Other/Comment: Hx skin rash - MUSCULOSKELETAL/RHEUMATOLOGICAL Hx Arthritis: Yes Hx Osteoporosis: Yes - GASTROINTESTINAL Hx Gastrointestinal Disorders: No - GENITOURINARY/GYNECOLOGICAL Hx Genitourinary Disorders: Yes Hx Hematuria: Yes Hx Incontinence: Yes Hx Urinary Tract Infection: Yes - PSYCHIATRIC Hx Anxiety: Yes Hx Bipolar Disorder: Yes Hx Depression: Yes Hx Paranoia: Yes Hx Substance Use: No - SURGICAL HISTORY Hx Appendectomy: Yes Hx Coronary Stent: Yes (PCI of the LAD with stent insertion ( [facility]) in 2007 in [place].) - ANESTHESIA Hx Anesthesia: Yes Hx Anesthesia Reactions: No Hx Malignant Hyperthermia: No Meds Allergies/Adverse Reactions: Allergies Allergy/AdvReac Type Severity Reaction Status Date / Time Penicillins Allergy RASH Verified 11/23/17 12:08 Physical Exam - Constitutional Appears: No Acute Distress, Chronically Ill - Eye Exam Eye Exam: Normal appearance - ENT Exam ENT Exam: Normal Exam - Neck Exam Neck exam: Positive for: Normal Inspection - Respiratory Exam Respiratory Exam: Clear to Auscultation Bilateral, NORMAL BREATHING PATTERN - Cardiovascular Exam Cardiovascular Exam: REGULAR RHYTHM - GI/Abdominal Exam GI & Abdominal Exam: Normal Bowel Sounds, Soft - Rectal Exam Rectal Exam: Deferred - Extremities Exam Extremities exam: Positive for: normal inspection - Back Exam Back exam: tenderness Additional comments: Severe tenderness of the low back. - Neurological Exam Neurological exam: Alert, Oriented x3 - Psychiatric Exam Psychiatric exam: Anxious - Skin Skin Exam: Dry, Intact, Normal Color, Warm Results - Vital Signs Recent Vital Signs: Last Vital Signs Temp 98.0 F 11/24/17 15:00 Pulse 89 11/24/17 15:00 Resp 20 11/24/17 15:00 BP 173/96 H 11/24/17 15:00 Pulse Ox 97 11/24/17 15:00 - Labs Result Diagrams: 11/23/17 12:51 11/24/17 08:27 Labs: Laboratory Results - last 24 hr 11/23/17 11/23/17 11/24/17 19:00 21:30 07:03 Sodium Potassium Chloride Carbon Dioxide Anion Gap BUN Creatinine Est GFR ( Amer) Est GFR (Non-Af Amer) POC Glucose (mg/dL) 260 H 247 H Random Glucose Calcium Total Bilirubin AST ALT Alkaline Phosphatase Total Protein Albumin Globulin Albumin/Globulin Ratio Stool Leukocytes, Qual Negative C. difficile Ag & Toxin 11/24/17 11/24/17 11/24/17 08:27 11:15 19:00 Sodium 131 L Potassium 4.4 Chloride 103 Carbon Dioxide 21 L Anion Gap 10 BUN 16 Creatinine 0.8 Est GFR ( Amer) > 60 Est GFR (Non-Af Amer) > 60 POC Glucose (mg/dL) 320 H Random Glucose 278 H Calcium 7.8 L Total Bilirubin 0.5 AST 51 H D ALT 70 H D Alkaline Phosphatase 115 Total Protein 6.7 Albumin 3.3 L Globulin 3.4 Albumin/Globulin Ratio 1.0 Stool Leukocytes, Qual C. difficile Ag & Toxin Negative Assessment & Plan (1) Dehydration Assessment and Plan: IVF. Status: Acute (2) Acute gastroenteritis Status: Acute (3) Severe low back pain Assessment and Plan: Try Tramadol. Xray of the LS spine in AM Status: Acute (4) Insulin dependent diabetes mellitus Status: Chronic Priority: Low (5) Paranoid states (delusional disorders) Status: Chronic Decision To Admit - Pt Status Changed To: Hospital Disposition Of: Inpatient - Admit Certification Admit to Inpatient:: After my assessment, the patient will require hospitalization for at least two midnights. This is because of the severity of symptoms shown, intensity of services needed, and/or the medical risk in this patient being treated as an outpatient. - InPatient: Physician Admission Certification:: After my assessements, the patient requires hospitalization for at least 2 midnights. - . Bed Request Type: Regular Admitting Physician: Cornell Lynn
[2017-11-24] MEDS: (Lantus) Insulin Glargine, Recombinant SC SCH (21:31)
--- NOTE | 2017-11-24 22:16 | CARD ---
APPROVED REPORT EKG Measurement Heart [id number] <Conclusion> Sinus tachycardia Possible Left atrial enlargement Left ventricular hypertrophy Nonspecific ST and T wave abnormality Abnormal ECG
[2017-11-25] MEDS: (Novolog) Insulin Aspart, Recombinant 100 u/ml 10 ml vial SC SCH ×4 (08:22→21:22)
[2017-11-25] MEDS: Enoxaparin 40 mg Syringe SC SCH (09:52)
[2017-11-25] MEDS: Sodium Chloride 0.9% 1,000 ML IV SCH (10:04)
--- NOTE | 2017-11-25 13:23 | RAD ---
PROCEDURE: Radiographs of the Lumbar Spine. HISTORY: Severe low back pain COMPARISON: No prior. FINDINGS: BONES: Anterior subluxation and grade 1 L4 on L5 no spondylolysis degenerative ligamentous laxity inferred -facet arthrosis noted. Mild compression deformity superior L3 endplate ; loss of disc height no more than 30 percent. Precise chronicity unknown -acute subacute possible Inferior thoracic and upper lumbar spondylosis DISC SPACES: L5-S1 marked disc space narrowing. Inferior thoracic intervertebral disc space narrowing. OTHER FINDINGS: None. IMPRESSION: Mild superior L3 vertebral body compression deformity -mild compression fracture probable. Chronicity determinate. Acute/ subacute possible. Elsewhere thoracic and lumbar spondylosis. Facet hypertrophic arthrosis -associated L4-5 ligamentous laxity malalignment/ grade 1 spondylolisthesis
--- NOTE | 2017-11-25 19:33 | CP.PCM.PN ---
Subjective - Date & Time of Evaluation Date of Evaluation: 11/25/17 Time of Evaluation: 19:30 - Subjective Subjective: Patient is complaining of severe low back pain, with inability to stand up on her own. LS Xray reveals mild compression fracture of L3( aciute vs chronic) and severe spondilosis of the lumbar spine. Will order PT eval and treatment. Objective - Vital Signs/Intake and Output Vital Signs (last 24 hours): Temp Pulse Resp BP Pulse Ox 97.2 F L 85 20 148/82 97 11/25/17 16:05 11/25/17 16:05 11/25/17 16:05 11/25/17 16:05 11/25/17 16:05 Intake and Output: 11/25/17 11/26/17 18:59 06:59 Intake Total 1140 Balance 1140 - Medications Medications: Current Medications Acetaminophen (Tylenol 325mg Tab) 650 mg PO Q6H PRN PRN Reason: Pain, Mild (1-3) Last Admin: 11/25/17 12:37 Dose: 650 mg Amlodipine Besylate (Norvasc) 5 mg PO DAILY [facility] Last Admin: 11/25/17 09:52 Dose: 5 mg Bupropion HCl (Wellbutrin) 200 mg PO DAILY [facility] Last Admin: 11/25/17 09:51 Dose: 200 mg Clopidogrel Bisulfate (Plavix) 75 mg PO DAILY [facility] Last Admin: 11/25/17 09:52 Dose: 75 mg Docusate Sodium (Colace) 100 mg PO TID [facility] Last Admin: 11/25/17 17:22 Dose: 100 mg Enoxaparin Sodium (Lovenox) 40 mg SC DAILY [facility] Last Admin: 11/25/17 09:52 Dose: 40 mg Famotidine (Pepcid) 20 mg PO BID [facility] Last Admin: 11/25/17 17:22 Dose: 20 mg Sodium Chloride (Sodium Chloride 0.9%) 1,000 mls @ 80 mls/hr IV .[id number] [facility] Last Admin: 11/25/17 10:04 Dose: 80 mls/hr Insulin Aspart (Novolog) 0 unit SC ACHS [facility] PRN Reason: Protocol Last Admin: 11/25/17 17:22 Dose: 6 unit Insulin Glargine (Lantus) 30 unit SC HS [facility] Last Admin: 11/24/17 21:31 Dose: 30 units Montelukast Sodium (Singulair) 10 mg PO DAILY [facility] Last Admin: 11/25/17 09:51 Dose: 10 mg Ondansetron HCl (Zofran Inj) 4 mg IVP ONCE PRN PRN Reason: Nausea/Vomiting Rosuvastatin Calcium (Crestor) 5 mg PO HS [facility] Last Admin: 11/24/17 21:30 Dose: 5 mg Topiramate (Topamax) 100 mg PO [facility] Last Admin: 11/24/17 22:50 Dose: 100 mg Tramadol HCl (Ultram) 50 mg PO TID PRN PRN Reason: For a low back pain. Last Admin: 11/25/17 10:02 Dose: 50 mg - Labs Labs: 11/23/17 12:51 11/24/17 08:27 - Constitutional Appears: No Acute Distress, Chronically Ill - Head Exam Head Exam: NORMAL INSPECTION - Eye Exam Eye Exam: Normal appearance - ENT Exam ENT Exam: Normal Exam - Neck Exam Neck Exam: Normal Inspection - Respiratory Exam Respiratory Exam: Clear to Ausculation Bilateral, NORMAL BREATHING PATTERN - Cardiovascular Exam Cardiovascular Exam: REGULAR RHYTHM - GI/Abdominal Exam GI & Abdominal Exam: Soft, Normal Bowel Sounds - Rectal Exam Rectal Exam: Deferred - Extremities Exam Extremities Exam: Normal Inspection - Back Exam Additional comments: Tender low back. - Neurological Exam Neurological Exam: Alert, Awake, Oriented x3 - Psychiatric Exam Psychiatric exam: Anxious, Manic - Skin Skin Exam: Dry, Intact, Normal Color Assessment and Plan (1) Dehydration Status: Acute (2) Acute gastroenteritis Status: Acute (3) Severe low back pain Assessment & Plan: Compression fracture of the vertebrae L3, and severe lumbar spondylosis. Will order PT. Status: Acute (4) Insulin dependent diabetes mellitus Status: Chronic (5) Paranoid states (delusional disorders) Status: Chronic (6) Hyponatremia Assessment & Plan: On IV NS. recheck CMP in AM. Status: Acute
[2017-11-25] MEDS: (Lantus) Insulin Glargine, Recombinant SC SCH (21:24)
[2017-11-26 08:24] LABS: ALBUMIN 3.5 g/dL (3.5-5.0); ALT/SGPT 60 U/L (9-52); AST/SGOT 34 U/L (14-36); BLOOD UREA NITROGEN 11 mg/dL (7-17); CALCIUM 9.2 mg/dl (8.6-10.4); GFR AFRICAN-AMERICAN > 60; GFR NON-AFRICAN AMERICAN > 60
[2017-11-26] MEDS: (Novolog) Insulin Aspart, Recombinant 100 u/ml 10 ml vial SC SCH ×4 (08:43→22:00)
[2017-11-26] MEDS: Enoxaparin 40 mg Syringe SC SCH (10:43)
[2017-11-26] MEDS ORDERED: Bisacodyl 5mg EC Tab PO STA (20:37)
--- NOTE | 2017-11-26 20:42 | CP.PCM.PN ---
Subjective - Date & Time of Evaluation Date of Evaluation: 11/26/17 Time of Evaluation: 20:40 - Subjective Subjective: Patient is complaining of severe low back pain, unable to stand up or ambulate, and constipation. Had frequent falls at home recently. Objective - Vital Signs/Intake and Output Vital Signs (last 24 hours): Temp Pulse Resp BP Pulse Ox 98.6 F 98 H 20 174/74 H 98 11/26/17 16:00 11/26/17 16:00 11/26/17 16:00 11/26/17 16:00 11/26/17 16:00 Intake and Output: 11/26/17 11/27/17 18:59 06:59 Intake Total 600 Output Total 0 Balance 600 - Medications Medications: Current Medications Acetaminophen (Tylenol 325mg Tab) 650 mg PO Q6H PRN PRN Reason: Pain, Mild (1-3) Last Admin: 11/26/17 08:43 Dose: 650 mg Amlodipine Besylate (Norvasc) 5 mg PO DAILY [facility] Last Admin: 11/26/17 10:42 Dose: 5 mg Bisacodyl (Dulcolax) 5 mg PO ONCE [facility] Stop: 11/26/17 20:38 Bupropion HCl (Wellbutrin) 200 mg PO DAILY [facility] Last Admin: 11/26/17 10:43 Dose: 200 mg Clopidogrel Bisulfate (Plavix) 75 mg PO DAILY [facility] Last Admin: 11/26/17 10:43 Dose: 75 mg Docusate Sodium (Colace) 100 mg PO TID [facility] Last Admin: 11/26/17 17:58 Dose: 100 mg Enoxaparin Sodium (Lovenox) 40 mg SC DAILY [facility] Last Admin: 11/26/17 10:43 Dose: 40 mg Famotidine (Pepcid) 20 mg PO BID [facility] Last Admin: 11/26/17 17:59 Dose: 20 mg Insulin Aspart (Novolog) 0 unit SC ACHS [facility] PRN Reason: Protocol Last Admin: 11/26/17 16:25 Dose: 4 unit Insulin Glargine (Lantus) 30 unit SC HS [facility] Last Admin: 11/25/17 21:24 Dose: 30 units Montelukast Sodium (Singulair) 10 mg PO DAILY [facility] Last Admin: 11/26/17 10:42 Dose: 10 mg Ondansetron HCl (Zofran Inj) 4 mg IVP ONCE PRN PRN Reason: Nausea/Vomiting Rosuvastatin Calcium (Crestor) 5 mg PO HS [facility] Last Admin: 11/25/17 21:21 Dose: 5 mg Topiramate (Topamax) 100 mg PO HS [facility] Last Admin: 11/25/17 21:21 Dose: 100 mg Tramadol HCl (Ultram) 50 mg PO TID PRN PRN Reason: For a low back pain. Last Admin: 11/26/17 19:22 Dose: 50 mg - Labs Labs: 11/23/17 12:51 11/26/17 07:02 - Constitutional Appears: No Acute Distress, Chronically Ill - Head Exam Head Exam: NORMAL INSPECTION - Eye Exam Eye Exam: Normal appearance - ENT Exam ENT Exam: Normal Exam - Neck Exam Neck Exam: Normal Inspection - Respiratory Exam Respiratory Exam: Clear to Ausculation Bilateral, NORMAL BREATHING PATTERN - Cardiovascular Exam Cardiovascular Exam: REGULAR RHYTHM - GI/Abdominal Exam GI & Abdominal Exam: Soft, Normal Bowel Sounds - Rectal Exam Rectal Exam: Deferred - Extremities Exam Extremities Exam: Normal Inspection - Back Exam Additional comments: Very tender low back. - Neurological Exam Neurological Exam: Alert, Awake, Oriented x3 - Skin Skin Exam: Dry, Intact, Normal Color, Warm Assessment and Plan (1) Dehydration Status: Acute (2) Acute gastroenteritis Status: Acute (3) Severe low back pain Assessment & Plan: R/o compresson Fx of L3. To ask Dr Appiah to evaluate. Status: Acute (4) Insulin dependent diabetes mellitus Status: Chronic (5) Paranoid states (delusional disorders) Status: Chronic (6) Hyponatremia Status: Acute
[2017-11-26] MEDS: (Lantus) Insulin Glargine, Recombinant SC SCH (21:08)
[2017-11-27] MEDS: (Novolog) Insulin Aspart, Recombinant 100 u/ml 10 ml vial SC SCH ×4 (08:19→21:00)
[2017-11-27] MEDS: Enoxaparin 40 mg Syringe SC SCH (09:17)
--- NOTE | 2017-11-27 10:41 | CP.PCM.CON ---
History of Present Illness - History of Present Illness History of Present Illness: SPINE Pt seen and examined. Full consult dictated. MRI ordered. Past Patient History - Infectious Disease Hx of Infectious Diseases: None - Tetanus Immunizations Tetanus Immunization: Unknown - Past Medical History & Family History Past Medical History?: Yes - Past Social History Smoking Status: Never Smoked - CARDIAC Hx Hypercholesterolemia: Yes Hx Hypertension: Yes - PULMONARY Hx Asthma: Yes - NEUROLOGICAL HX Cerebrovascular Accident: Yes ( (blood clot left side of brain resolved as per pt.)) - HEENT Hx HEENT Problems: Yes Other/Comment: wear eyeglasses - RENAL Hx Chronic Kidney Disease: No - ENDOCRINE/METABOLIC Hx Diabetes Mellitus Type 1: Yes - HEMATOLOGICAL/ONCOLOGICAL Hx Blood Disorders: No - INTEGUMENTARY Hx Dermatological Problems: Yes Other/Comment: Hx skin rash - MUSCULOSKELETAL/RHEUMATOLOGICAL Hx Arthritis: Yes - GASTROINTESTINAL Hx Gastrointestinal Disorders: No - GENITOURINARY/GYNECOLOGICAL Hx Genitourinary Disorders: Yes Hx Hematuria: Yes Hx Incontinence: Yes Hx Urinary Tract Infection: Yes - PSYCHIATRIC Hx Anxiety: Yes Hx Bipolar Disorder: Yes Hx Depression: Yes Hx Paranoia: Yes Hx Substance Use: No - SURGICAL HISTORY Hx Appendectomy: Yes Hx Coronary Stent: Yes (PCI of the LAD with stent insertion ( Xience) in 2007 in [place].) - ANESTHESIA Hx Anesthesia: Yes Hx Anesthesia Reactions: No Hx Malignant Hyperthermia: No Has any member of the family had a problem w/ anesthesia?: No Meds Allergies/Adverse Reactions: Allergies Allergy/AdvReac Type Severity Reaction Status Date / Time Penicillins Allergy RASH Verified 11/23/17 12:08 - Medications Medications: Current Medications Acetaminophen (Tylenol 325mg Tab) 650 mg PO Q6H PRN PRN Reason: Pain, Mild (1-3) Last Admin: 11/27/17 09:16 Dose: 650 mg Amlodipine Besylate (Norvasc) 5 mg PO DAILY [facility] Last Admin: 11/27/17 09:16 Dose: 5 mg Bupropion HCl (Wellbutrin) 200 mg PO DAILY [facility] Last Admin: 11/27/17 09:15 Dose: 200 mg Clopidogrel Bisulfate (Plavix) 75 mg PO DAILY [facility] Last Admin: 11/27/17 09:15 Dose: 75 mg Docusate Sodium (Colace) 100 mg PO TID [facility] Last Admin: 11/27/17 09:15 Dose: 100 mg Enoxaparin Sodium (Lovenox) 40 mg SC DAILY [facility] Last Admin: 11/27/17 09:17 Dose: 40 mg Famotidine (Pepcid) 20 mg PO BID [facility] Last Admin: 11/27/17 09:17 Dose: 20 mg Insulin Aspart (Novolog) 0 unit SC [facility] PRN Reason: Protocol Last Admin: 11/27/17 08:19 Dose: 3 unit Insulin Glargine (Lantus) 30 unit SC [facility] Last Admin: 11/26/17 21:08 Dose: 30 units Montelukast Sodium (Singulair) 10 mg PO DAILY [facility] Last Admin: 11/27/17 09:21 Dose: 10 mg Ondansetron HCl (Zofran Inj) 4 mg IVP ONCE PRN PRN Reason: Nausea/Vomiting Rosuvastatin Calcium (Crestor) 5 mg PO [facility] Last Admin: 11/26/17 20:59 Dose: 5 mg Topiramate (Topamax) 100 mg PO [facility] Last Admin: 11/26/17 20:59 Dose: 100 mg Tramadol HCl (Ultram) 50 mg PO TID PRN PRN Reason: For a low back pain. Last Admin: 11/27/17 06:16 Dose: 50 mg Results - Vital Signs Recent Vital Signs: Last Vital Signs Temp 97.9 F 11/27/17 08:15 Pulse 72 11/27/17 08:15 Resp 20 11/27/17 08:15 BP 158/85 H 11/27/17 08:15 Pulse Ox 97 11/27/17 08:15 - Labs Result Diagrams: 11/23/17 12:51 11/26/17 07:02 Labs: Laboratory Results - last 24 hr 11/26/17 11/26/17 11/26/17 10:52 16:13 21:17 POC Glucose (mg/dL) 268 H 265 H 226 H 11/27/17 07:11 POC Glucose (mg/dL) 225 H
--- NOTE | 2017-11-27 15:07 | CP.PCM.CON ---
History of Present Illness - History of Present Illness History of Present Illness: Orthopedic consultation Dr. Appiah 67F complains of low back pain after frequent falls. She is not complaining of vomiting or abdominal pain today just back pain. She denies any radiation down her legs. She denies pain in other extremities. She denies change in bowel or bladder habits. Denies numbness/tingling/CP/SOb. Review of Systems - Review of Systems All systems: reviewed and no additional remarkable complaints except - Constitutional Additional comments: no fever/chills - Cardiovascular Cardiovascular: As Per HPI - Respiratory Respiratory: As Per HPI - Gastrointestinal Gastrointestinal: As Per HPI - Musculoskeletal Musculoskeletal: As Per HPI - Integumentary Additional comments: no swelling - Neurological Neurological: As Per HPI - Hematologic/Lymphatic Hematologic: absent: As Per HPI, Easy Bleeding, Easy Bruising, Lymphadenopathy, Other Past Patient History - Infectious Disease Hx of Infectious Diseases: None - Tetanus Immunizations Tetanus Immunization: Unknown - Past Medical History & Family History Past Medical History?: Yes Past Family History: Reviewed and not pertinent - Past Social History Smoking Status: Never Smoked - CARDIAC Hx Hypercholesterolemia: Yes Hx Hypertension: Yes - PULMONARY Hx Asthma: Yes - NEUROLOGICAL HX Cerebrovascular Accident: Yes ( (blood clot left side of brain resolved as per pt.)) - HEENT Hx HEENT Problems: Yes Other/Comment: wear eyeglasses - RENAL Hx Chronic Kidney Disease: No - ENDOCRINE/METABOLIC Hx Diabetes Mellitus Type 1: Yes - HEMATOLOGICAL/ONCOLOGICAL Hx Blood Disorders: No - INTEGUMENTARY Hx Dermatological Problems: Yes Other/Comment: Hx skin rash - MUSCULOSKELETAL/RHEUMATOLOGICAL Hx Arthritis: Yes - GASTROINTESTINAL Hx Gastrointestinal Disorders: No - GENITOURINARY/GYNECOLOGICAL Hx Genitourinary Disorders: Yes Hx Hematuria: Yes Hx Incontinence: Yes Hx Urinary Tract Infection: Yes - PSYCHIATRIC Hx Anxiety: Yes Hx Bipolar Disorder: Yes Hx Depression: Yes Hx Paranoia: Yes Hx Substance Use: No - SURGICAL HISTORY Hx Appendectomy: Yes Hx Coronary Stent: Yes (PCI of the LAD with stent insertion ( Xience) in 2007 in [place].) - ANESTHESIA Hx Anesthesia: Yes Hx Anesthesia Reactions: No Hx Malignant Hyperthermia: No Has any member of the family had a problem w/ anesthesia?: No Meds Allergies/Adverse Reactions: Allergies Allergy/AdvReac Type Severity Reaction Status Date / Time Penicillins Allergy RASH Verified 11/23/17 12:08 - Medications Medications: Current Medications Acetaminophen (Tylenol 325mg Tab) 650 mg PO Q6H PRN PRN Reason: Pain, Mild (1-3) Last Admin: 11/27/17 09:16 Dose: 650 mg Amlodipine Besylate (Norvasc) 5 mg PO DAILY [facility] Last Admin: 11/27/17 09:16 Dose: 5 mg Bupropion HCl (Wellbutrin) 200 mg PO DAILY [facility] Last Admin: 11/27/17 09:15 Dose: 200 mg Clopidogrel Bisulfate (Plavix) 75 mg PO DAILY [facility] Last Admin: 11/27/17 09:15 Dose: 75 mg Docusate Sodium (Colace) 100 mg PO TID [facility] Last Admin: 11/27/17 14:22 Dose: 100 mg Enoxaparin Sodium (Lovenox) 40 mg SC DAILY [facility] Last Admin: 11/27/17 09:17 Dose: 40 mg Famotidine (Pepcid) 20 mg PO BID [facility] Last Admin: 11/27/17 09:17 Dose: 20 mg Insulin Aspart (Novolog) 0 unit SC [facility] PRN Reason: Protocol Last Admin: 11/27/17 12:12 Dose: 4 unit Insulin Glargine (Lantus) 30 unit SC [facility] Last Admin: 11/26/17 21:08 Dose: 30 units Montelukast Sodium (Singulair) 10 mg PO DAILY [facility] Last Admin: 11/27/17 09:21 Dose: 10 mg Ondansetron HCl (Zofran Inj) 4 mg IVP ONCE PRN PRN Reason: Nausea/Vomiting Rosuvastatin Calcium (Crestor) 5 mg PO [facility] Last Admin: 11/26/17 20:59 Dose: 5 mg Topiramate (Topamax) 100 mg PO [facility] Last Admin: 11/26/17 20:59 Dose: 100 mg Tramadol HCl (Ultram) 50 mg PO TID PRN PRN Reason: For a low back pain. Last Admin: 11/27/17 06:16 Dose: 50 mg Physical Exam - Constitutional Appears: Well - Head Exam Head Exam: ATRAUMATIC - Neck Exam Neck exam: Positive for: Full Rom, Normal Inspection - Respiratory Exam Respiratory Exam: NORMAL BREATHING PATTERN - Extremities Exam Additional comments: full ROM BUE, no pain, no tenderness, no swelling/deformity/discoloration - Expanded Lower Extremities Exam Left Hip exam: normal inspection Knee exam: normal inspection Ankle exam: NORMAL INSPECTION Neuro vacular tendon exam: no vascular compromise (sensation intact and equal L2 -S1, 5/5 great toe ext/DF/PF, complains of back pain with knee/hip flexion) - Back Exam Back exam: paraspinal tenderness, vertebral tenderness - Neurological Exam Neurological exam: Alert - Psychiatric Exam Psychiatric exam: Normal Affect, Normal Mood - Skin Skin Exam: Dry, Intact, Normal Color, Warm Results - Vital Signs Recent Vital Signs: Last Vital Signs Temp 97.9 F 11/27/17 08:15 Pulse 72 11/27/17 08:15 Resp 20 11/27/17 08:15 BP 158/85 H 11/27/17 08:15 Pulse Ox 97 11/27/17 08:15 - Labs Result Diagrams: 11/23/17 12:51 11/26/17 07:02 Labs: Laboratory Results - last 24 hr 11/26/17 11/26/17 11/27/17 16:13 21:17 07:11 POC Glucose (mg/dL) 265 H 226 H 225 H 11/27/17 10:56 POC Glucose (mg/dL) 284 H - Impressions Impression: atient Name / ID : SIMEON ALLEN P / [id number] Exam Date : 11/25/2017 10:53:02 ( Approved ) Study Comment : Sex / Age : F / 67Y Creator : Safia Frederick Dictator : Safia Frederick Supervisor Feed House : Automatic Typewriter Inspector : Safia Frederick Approver2 : Report Date : 11/25/2017 13:17:39 My Comment : PROCEDURE: Radiographs of the Lumbar Spine. HISTORY: Severe low back pain COMPARISON: No prior. FINDINGS: BONES: Anterior subluxation and grade 1 L4 on L5 no spondylolysis degenerative ligamentous laxity inferred -facet arthrosis noted. Mild compression deformity superior L3 endplate ; loss of disc height no more than 30 percent. Precise chronicity unknown -acute subacute possible Inferior thoracic and upper lumbar spondylosis DISC SPACES: L5-S1 marked disc space narrowing. Inferior thoracic intervertebral disc space narrowing. OTHER FINDINGS: None. IMPRESSION: Mild superior L3 vertebral body compression deformity -mild compression fracture probable. Chronicity determinate. Acute/ subacute possible. Elsewhere thoracic and lumbar spondylosis. Facet hypertrophic arthrosis - associated L4-5 ligamentous laxity malalignment/ grade 1 spondylolisthesis Assessment & Plan (1) Compression fracture of L3 lumbar vertebra Assessment and Plan: MRI lumbar spine clinically may be acute recommend neurosurgery consult, Dr. Lora note appreciated defer to Dr. Lora regarding L3 fx as outside scope of practice of Dr. Appiah PT/OT when appropriate VTE proph no complaints of pain in extremities d/w Dr. Appiah, agrees with above Status: Acute (2) Spondylolisthesis at L4-L5 level Assessment and Plan: appears grade [address] abdomen Status: Chronic
--- NOTE | 2017-11-27 20:15 | CP.PCM.PN ---
Subjective - Date & Time of Evaluation Date of Evaluation: 11/27/17 Time of Evaluation: 20:13 - Subjective Subjective: Patient was seen by Neurosurgeon. MRI of the lumbar spines ordered. Patient still has severe pain of the low back which prevent her from standing up and/or walking. Objective - Vital Signs/Intake and Output Vital Signs (last 24 hours): Temp Pulse Resp BP Pulse Ox 98.1 F 86 20 172/78 H 97 11/27/17 16:00 11/27/17 16:00 11/27/17 16:00 11/27/17 16:00 11/27/17 16:00 Intake and Output: 11/27/17 11/28/17 18:59 06:59 Intake Total 500 Output Total 0 Balance 500 - Medications Medications: Current Medications Acetaminophen (Tylenol 325mg Tab) 650 mg PO Q6H PRN PRN Reason: Pain, Mild (1-3) Last Admin: 11/27/17 17:52 Dose: 650 mg Amlodipine Besylate (Norvasc) 5 mg PO DAILY [facility] Last Admin: 11/27/17 09:16 Dose: 5 mg Bupropion HCl (Wellbutrin) 200 mg PO DAILY [facility] Last Admin: 11/27/17 09:15 Dose: 200 mg Clopidogrel Bisulfate (Plavix) 75 mg PO DAILY [facility] Last Admin: 11/27/17 09:15 Dose: 75 mg Docusate Sodium (Colace) 100 mg PO TID [facility] Last Admin: 11/27/17 17:29 Dose: 100 mg Enoxaparin Sodium (Lovenox) 40 mg SC DAILY [facility] Last Admin: 11/27/17 09:17 Dose: 40 mg Famotidine (Pepcid) 20 mg PO BID [facility] Last Admin: 11/27/17 17:29 Dose: 20 mg Insulin Aspart (Novolog) 0 unit SC [facility] PRN Reason: Protocol Last Admin: 11/27/17 17:28 Dose: 3 unit Insulin Glargine (Lantus) 30 unit SC HS [facility] Last Admin: 11/26/17 21:08 Dose: 30 units Montelukast Sodium (Singulair) 10 mg PO DAILY [facility] Last Admin: 11/27/17 09:21 Dose: 10 mg Ondansetron HCl (Zofran Inj) 4 mg IVP ONCE PRN PRN Reason: Nausea/Vomiting Rosuvastatin Calcium (Crestor) 5 mg PO HS [facility] Last Admin: 11/26/17 20:59 Dose: 5 mg Topiramate (Topamax) 100 mg PO HS [facility] Last Admin: 11/26/17 20:59 Dose: 100 mg Tramadol HCl (Ultram) 50 mg PO TID PRN PRN Reason: For a low back pain. Last Admin: 11/27/17 06:16 Dose: 50 mg - Labs Labs: 11/23/17 12:51 11/26/17 07:02 - Constitutional Appears: No Acute Distress, Chronically Ill - Head Exam Head Exam: NORMAL INSPECTION - Eye Exam Eye Exam: Normal appearance - ENT Exam ENT Exam: Normal Exam - Respiratory Exam Respiratory Exam: Clear to Ausculation Bilateral, NORMAL BREATHING PATTERN - Cardiovascular Exam Cardiovascular Exam: REGULAR RHYTHM, Murmur - GI/Abdominal Exam GI & Abdominal Exam: Soft, Normal Bowel Sounds - Rectal Exam Rectal Exam: Deferred - Back Exam Additional comments: Low back up worker. - Neurological Exam Neurological Exam: Alert, Awake, Oriented x3 - Psychiatric Exam Psychiatric exam: Anxious - Skin Skin Exam: Dry, Intact, Normal Color, Warm Assessment and Plan (1) Dehydration Status: Acute (2) Acute gastroenteritis Status: Acute (3) Severe low back pain Assessment & Plan: Awaiting MRI of the lumbar spines. Status: Acute (4) Insulin dependent diabetes mellitus Status: Chronic (5) Paranoid states (delusional disorders) Status: Chronic (6) Hyponatremia Status: Acute
[2017-11-27] MEDS: (Lantus) Insulin Glargine, Recombinant SC SCH (21:02)
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
[2017-11-28] MEDS: (Novolog) Insulin Aspart, Recombinant 100 u/ml 10 ml vial SC SCH ×4 (08:18→21:37)
[2017-11-28] MEDS: Enoxaparin 40 mg Syringe SC SCH (09:23)
--- NOTE | 2017-11-28 11:10 | MRI ---
PROCEDURE: MR LUMBAR SPINE WITHOUT CONTRAST HISTORY: L3 compression fx COMPARISON: Prior abdomen pelvis CT examination 11/23/2017. TECHNIQUE: Multiecho multiplanar sequences were performed through the lumbar spine without the use of intravenous contrast. FINDINGS: The lumbar curvature is interrupted by grade 1 spondylolisthesis at L4-5 with L4 anterior to L5, likely on the basis of bilateral spondylolysis. Further, a mild, likely subacute compression fracture of the L3 vertebral body is appreciated with posterior displaced of the posterior wall of the L3 vertebral body, resulting in mild central canal stenosis concentrated the left greater the right lateral recesses. No definite acute fracture appreciable. Edema is mildly inhomogeneous throughout this vertebral body. A chronic compression fracture of T12 is suggested, appearing mild. Diffuse disc desiccation is identified, appearing variable. Well small benign hemangiomata edema is are appreciated at L1-L2, there is a mixed signal intensity lesion at the L5 vertebral body abdominal a bright on long TR weighting and mildly diminished in signal on T1 weighting. An atypical benign hemangioma is possible here however other etiologies including malignancy not excluded and follow-up nuclear SPECT scan is recommended for additional detailed evaluation. T12-L1: No disc herniation, spinal canal stenosis or neural foraminal narrowing. L1-2: No disc herniation, spinal canal stenosis or neural foraminal narrowing. L2-3: No disc herniation, spinal canal stenosis or neural foraminal narrowing. L3-4: No disc herniation is appreciated or central canal stenosis at the disc interspace level although facet arthropathy appears moderate to severe. However, mild compression fracture of L3 vertebral body results in mild central canal stenosis at the level of the upper to mid vertebral body and below L2-3. No significant neural foraminal stenosis. L4-5: Grade 1 spondylolisthesis on the basis of spondylolysis is appreciated combining with a small central disc herniation resulting in severe central canal stenosis. Gross facet arthropathy contributes to this finding. Moderate bilateral neural foraminal stenosis appreciated. L5-S1: A generalized disc bulge combines with marked facet joint degenerative arthropathy resulting in moderate central canal stenosis and moderate bilateral neural foraminal stenosis. No disc herniation identified. OTHER FINDINGS: None. IMPRESSION: 1. L3 compression fracture appears mild in severity resulting in mild central stenosis at the upper mid L3 level of the central canal but no significant neural foraminal stenosis. Fracture age appears to be subacute. 2. Grade 1 spondylolisthesis and small central disc herniation as well as gross facet arthropathy causes severe central canal stenosis at L4-5 and moderate bilateral neural foraminal stenoses. 3. Potential atypical benign hemangioma L5 vertebral body. Precautionary follow-up nuclear SPECT scan of the lumbar spine is advised to exclude potential malignancy here.
--- NOTE | 2017-11-28 15:28 | CP.PCM.PN ---
Subjective - Date & Time of Evaluation Date of Evaluation: 11/28/17 Time of Evaluation: 15:25 - Subjective Subjective: Patient states back pain is the same. Denies numbness/tingling /radiating pain, CP/COb/dizziness/n/v. Review of Systems - Review of Systems All systems: reviewed and no additional remarkable complaints except - Constitutional Additional comments: denies fever/chiolls - Cardiovascular Cardiovascular: As Per HPI - Respiratory Respiratory: As Per HPI - Gastrointestinal Gastrointestinal: As Per HPI - Musculoskeletal Musculoskeletal: As Par HPI - Integumentary Integumentary: UNREMARKABLE - Neurological Neurological: As Per HPI - Hematologic/Lymphatic Hematologic: UNREMARKABLE Objective - Vital Signs/Intake and Output Vital Signs (last 24 hours): Temp Pulse Resp BP Pulse Ox 98 F 80 20 147/75 97 11/28/17 00:07 11/28/17 00:07 11/28/17 00:07 11/28/17 00:07 11/28/17 00:07 Intake and Output: 11/28/17 11/28/17 06:59 18:59 Intake Total 300 400 Output Total 500 Balance -200 400 - Medications Medications: Current Medications Acetaminophen (Tylenol 325mg Tab) 650 mg PO Q6H PRN PRN Reason: Pain, Mild (1-3) Last Admin: 11/28/17 09:26 Dose: 650 mg Amlodipine Besylate (Norvasc) 5 mg PO DAILY [facility] Last Admin: 11/28/17 09:22 Dose: 5 mg Bupropion HCl (Wellbutrin) 200 mg PO DAILY [facility] Last Admin: 11/28/17 09:23 Dose: 200 mg Clopidogrel Bisulfate (Plavix) 75 mg PO DAILY [facility] Last Admin: 11/28/17 09:22 Dose: 75 mg Docusate Sodium (Colace) 100 mg PO TID [facility] Last Admin: 11/28/17 14:04 Dose: 100 mg Enoxaparin Sodium (Lovenox) 40 mg SC DAILY [facility] Last Admin: 11/28/17 09:23 Dose: 40 mg Famotidine (Pepcid) 20 mg PO BID [facility] Last Admin: 11/28/17 09:22 Dose: 20 mg Insulin Aspart (Novolog) 0 unit SC ACHS [facility] PRN Reason: Protocol Last Admin: 11/28/17 12:08 Dose: 4 unit Insulin Glargine (Lantus) 30 unit SC HS [facility] Last Admin: 11/27/17 21:02 Dose: 30 units Montelukast Sodium (Singulair) 10 mg PO DAILY [facility] Last Admin: 11/28/17 09:22 Dose: 10 mg Ondansetron HCl (Zofran Inj) 4 mg IVP ONCE PRN PRN Reason: Nausea/Vomiting Rosuvastatin Calcium (Crestor) 5 mg PO [facility] Last Admin: 11/27/17 21:02 Dose: 5 mg Topiramate (Topamax) 100 mg PO [facility] Last Admin: 11/27/17 21:01 Dose: 100 mg Tramadol HCl (Ultram) 50 mg PO TID PRN PRN Reason: For a low back pain. Last Admin: 11/28/17 08:17 Dose: 50 mg - Labs Labs: 11/23/17 12:51 11/26/17 07:02 - Constitutional Appears: Well, No Acute Distress - Head Exam Head Exam: ATRAUMATIC - Respiratory Exam Respiratory Exam: NORMAL BREATHING PATTERN - Cardiovascular Exam Additional comments: calves soft NT neg homans - Extremities Exam Additional comments: 5/5 strength great to ext/df/pf/knee flex/ext sensation intact - Back Exam Back Exam: paraspinal tenderness, vertebral tenderness - Neurological Exam Neurological Exam: Alert, Awake Neuro motor strength exam: Left Lower Extremity: 5, Right Lower Extremity: 5 - Skin Skin Exam: Dry, Intact, Normal Color, Warm - Additional Findings Additional findings: atient Name / ID : SIMEON ALLEN P / [id number] Exam Date : 11/27/2017 18:17:46 ( Approved ) Study Comment : Sex / Age : F / 67Y Creator : Cornell Martel MD Dictator : Cornell Martel MD Educational Aid : Graduate Assistant Athletic Trainer : Cornell Martel MD Approver2 : Report Date : 11/28/2017 11:03:41 My Comment : PROCEDURE: MR LUMBAR SPINE WITHOUT CONTRAST HISTORY: L3 compression fx COMPARISON: Prior abdomen pelvis CT examination 11/23/2017. TECHNIQUE: Multiecho multiplanar sequences were performed through the lumbar spine without the use of intravenous contrast. FINDINGS: The lumbar curvature is interrupted by grade 1 spondylolisthesis at L4-5 with L4 anterior to L5, likely on the basis of bilateral spondylolysis. Further, a mild, likely subacute compression fracture of the L3 vertebral body is appreciated with posterior displaced of the posterior wall of the L3 vertebral body, resulting in mild central canal stenosis concentrated the left greater the right lateral recesses. No definite acute fracture appreciable. Edema is mildly inhomogeneous throughout this vertebral body. A chronic compression fracture of T12 is suggested, appearing mild. Diffuse disc desiccation is identified, appearing variable. Well small benign hemangiomata edema is are appreciated at L1-L2, there is a mixed signal intensity lesion at the L5 vertebral body abdominal a bright on long TR weighting and mildly diminished in signal on T1 weighting. An atypical benign hemangioma is possible here however other etiologies including malignancy not excluded and follow-up nuclear SPECT scan is recommended for additional detailed evaluation. T12-L1: No disc herniation, spinal canal stenosis or neural foraminal narrowing. L1-2: No disc herniation, spinal canal stenosis or neural foraminal narrowing. L2-3: No disc herniation, spinal canal stenosis or neural foraminal narrowing. L3-4: No disc herniation is appreciated or central canal stenosis at the disc interspace level although facet arthropathy appears moderate to severe. However , mild compression fracture of L3 vertebral body results in mild central canal stenosis at the level of the upper to mid vertebral body and below L2-3. No significant neural foraminal stenosis. L4-5: Grade 1 spondylolisthesis on the basis of spondylolysis is appreciated combining with a small central disc herniation resulting in severe central canal stenosis. Gross facet arthropathy contributes to this finding. Moderate bilateral neural foraminal stenosis appreciated. L5-S1: A generalized disc bulge combines with marked facet joint degenerative arthropathy resulting in moderate central canal stenosis and moderate bilateral neural foraminal stenosis. No disc herniation identified. OTHER FINDINGS: None. IMPRESSION: 1. L3 compression fracture appears mild in severity resulting in mild central stenosis at the upper mid L3 level of the central canal but no significant neural foraminal stenosis. Fracture age appears to be subacute. 2. Grade 1 spondylolisthesis and small central disc herniation as well as gross facet arthropathy causes severe central canal stenosis at L4-5 and moderate bilateral neural foraminal stenoses. 3. Potential atypical benign hemangioma L5 vertebral body. Precautionary follow -up nuclear SPECT scan of the lumbar spine is advised to exclude potential malignancy here. Assessment and Plan (1) Compression fracture of L3 lumbar vertebra Assessment & Plan: MRi completed, reviewed will defer mgmt of L3 compression fracture to Dr Lora PT/OT as per NS VTE proph d/w DR. Appiah, agrees with above no orthopedic intervention indicated f/u as outpt only prn Status: Acute (2) Spondylolisthesis at L4-L5 level Status: Chronic
--- NOTE | 2017-11-28 19:23 | CP.PCM.PN ---
Subjective - Date & Time of Evaluation Date of Evaluation: 11/28/17 Time of Evaluation: 13:30 - Subjective Subjective: Patient still with severe low back pain. Back MRI reveals a subacute compression fracture of the lumbar spine L3. Awaiting Dr Lora re-evaluation to continue PT and pain management. Objective - Vital Signs/Intake and Output Vital Signs (last 24 hours): Temp Pulse Resp BP Pulse Ox 98.4 F 98 H 20 155/83 H 98 11/28/17 17:08 11/28/17 17:08 11/28/17 17:08 11/28/17 17:08 11/28/17 17:08 Intake and Output: 11/28/17 11/29/17 18:59 06:59 Intake Total 900 Balance 900 - Medications Medications: Current Medications Acetaminophen (Tylenol 325mg Tab) 650 mg PO Q6H PRN PRN Reason: Pain, Mild (1-3) Last Admin: 11/28/17 17:26 Dose: 650 mg Amlodipine Besylate (Norvasc) 5 mg PO DAILY [facility] Last Admin: 11/28/17 09:22 Dose: 5 mg Bupropion HCl (Wellbutrin) 200 mg PO DAILY [facility] Last Admin: 11/28/17 09:23 Dose: 200 mg Clopidogrel Bisulfate (Plavix) 75 mg PO DAILY [facility] Last Admin: 11/28/17 09:22 Dose: 75 mg Docusate Sodium (Colace) 100 mg PO TID [facility] Last Admin: 11/28/17 17:23 Dose: 100 mg Enoxaparin Sodium (Lovenox) 40 mg SC DAILY [facility] Last Admin: 11/28/17 09:23 Dose: 40 mg Famotidine (Pepcid) 20 mg PO BID [facility] Last Admin: 11/28/17 17:23 Dose: 20 mg Insulin Aspart (Novolog) 0 unit SC ACHS [facility] PRN Reason: Protocol Last Admin: 11/28/17 17:22 Dose: 4 unit Insulin Glargine (Lantus) 30 unit SC HS [facility] Last Admin: 11/27/17 21:02 Dose: 30 units Montelukast Sodium (Singulair) 10 mg PO DAILY [facility] Last Admin: 11/28/17 09:22 Dose: 10 mg Ondansetron HCl (Zofran Inj) 4 mg IVP ONCE PRN PRN Reason: Nausea/Vomiting Rosuvastatin Calcium (Crestor) 5 mg PO HS [facility] Last Admin: 11/27/17 21:02 Dose: 5 mg Topiramate (Topamax) 100 mg PO HS [facility] Last Admin: 11/27/17 21:01 Dose: 100 mg Tramadol HCl (Ultram) 50 mg PO TID PRN PRN Reason: For a low back pain. Last Admin: 11/28/17 08:17 Dose: 50 mg - Labs Labs: 11/23/17 12:51 11/26/17 07:02 - Constitutional Appears: No Acute Distress, Chronically Ill - Head Exam Head Exam: NORMAL INSPECTION - Eye Exam Eye Exam: Normal appearance Pupil Exam: NORMAL ACCOMODATION - ENT Exam ENT Exam: Normal Exam - Neck Exam Neck Exam: Normal Inspection - Respiratory Exam Respiratory Exam: Clear to Ausculation Bilateral, NORMAL BREATHING PATTERN - Cardiovascular Exam Cardiovascular Exam: Irregular Rhythm, REGULAR RHYTHM - GI/Abdominal Exam GI & Abdominal Exam: Soft, Normal Bowel Sounds - Rectal Exam Rectal Exam: Deferred - Extremities Exam Extremities Exam: Normal Inspection - Back Exam Additional comments: Very tender low back. - Neurological Exam Neurological Exam: Alert, Awake, Oriented x3 Additional comments: No leg weakness or numbness. - Psychiatric Exam Psychiatric exam: Anxious - Skin Skin Exam: Dry, Intact, Normal Color, Warm Assessment and Plan (1) Dehydration Status: Resolved (2) Acute gastroenteritis Status: Resolved (3) Severe low back pain Assessment & Plan: Secondary to compression fracture of L3 Status: Acute (4) Insulin dependent diabetes mellitus Status: Chronic (5) Paranoid states (delusional disorders) Status: Chronic (6) Hyponatremia Status: Resolved
[2017-11-28] MEDS: (Lantus) Insulin Glargine, Recombinant SC SCH (21:36)
[2017-11-29] MEDS: (Novolog) Insulin Aspart, Recombinant 100 u/ml 10 ml vial SC SCH ×4 (08:18→21:32)
[2017-11-29 08:33] LABS: ALB/GLOB RATIO 0.9 (1.0-2.1); ALBUMIN 3.3 g/dL (3.5-5.0); ALT/SGPT 39 U/L (9-52); AST/SGOT 23 U/L (14-36); BLOOD UREA NITROGEN 15 mg/dL (7-17); CALCIUM 9.9 mg/dl (8.6-10.4); GFR AFRICAN-AMERICAN > 60; GFR NON-AFRICAN AMERICAN > 60
[2017-11-29 08:34] LABS: BASO % 0.4 % (0.0-2.0); HEMOGLOBIN 11.9 g/dL (11.0-16.0); LYMPH # 0.8 K/uL (1.0-4.3); LYMPH % 14.5 % (20.0-40.0); MEAN CELL VOLUME 93.8 fL (81.0-99.0); MEAN CORPUSCULAR HEMOGLOBIN 31.8 pg (27.0-31.0); MEAN CORPUSCULAR HGB CONC 33.9 g/dL (33.0-37.0); MEAN PLATELET VOLUME 10.2 fL (7.2-11.7); MONO # 1.9 K/uL (0.0-0.8); MONO % 34.1 % (0.0-10.0); NEUT # 2.8 K/uL (1.8-7.0); PLATELET COUNT 138 K/uL (130-400); RBC 3.74 Mil/uL (3.80-5.20); RED CELL DISTRIBUTION WIDTH 13.7 % (11.5-14.5); WHITE BLOOD COUNT 5.6 K/uL (4.8-10.8)
[2017-11-29 10:45] LABS: LYMPHOCYTE 19 % (20-40); MONOCYTE 21 % (0-10); NEUTROPHIL 60 % (50-75); TOTAL CELLS COUNTED 100
[2017-11-29 10:46] LABS: PLATELET ESTIMATE NORMAL (NORMAL)
[2017-11-29] MEDS: Enoxaparin 40 mg Syringe SC SCH (10:54)
--- NOTE | 2017-11-29 21:10 | CP.PCM.PN ---
Subjective - Date & Time of Evaluation Date of Evaluation: 11/29/17 Time of Evaluation: 21:07 - Subjective Subjective: Patient still has severe low back pain. Also is complaining of constipation for the past 3-4 days. Objective - Vital Signs/Intake and Output Vital Signs (last 24 hours): Temp Pulse Resp BP Pulse Ox 98.2 F 89 20 164/78 H 96 11/29/17 08:32 11/29/17 08:32 11/29/17 08:32 11/29/17 08:32 11/29/17 08:32 Intake and Output: 11/29/17 11/30/17 18:59 06:59 Intake Total 500 Output Total 0 Balance 500 - Medications Medications: Current Medications Acetaminophen (Tylenol 325mg Tab) 650 mg PO Q6H PRN PRN Reason: Pain, Mild (1-3) Last Admin: 11/29/17 17:40 Dose: 650 mg Amlodipine Besylate (Norvasc) 5 mg PO DAILY [facility] Last Admin: 11/29/17 10:53 Dose: 5 mg Bupropion HCl (Wellbutrin) 200 mg PO DAILY [facility] Last Admin: 11/29/17 10:58 Dose: 200 mg Clopidogrel Bisulfate (Plavix) 75 mg PO DAILY [facility] Last Admin: 11/29/17 10:53 Dose: 75 mg Docusate Sodium (Colace) 100 mg PO TID [facility] Last Admin: 11/29/17 17:38 Dose: 100 mg Enoxaparin Sodium (Lovenox) 40 mg SC DAILY [facility] Last Admin: 11/29/17 10:54 Dose: Not Given Famotidine (Pepcid) 20 mg PO BID [facility] Last Admin: 11/29/17 17:38 Dose: 20 mg Insulin Aspart (Novolog) 0 unit SC [facility]CLUDE 234 [facility]S [facility] PRN Reason: Protocol Last Admin: 11/29/17 16:50 Dose: 6 unit Insulin Glargine (Lantus) 30 unit SC HS [facility] Last Admin: 11/28/17 21:36 Dose: 30 units Montelukast Sodium (Singulair) 10 mg PO DAILY [facility] Last Admin: 11/29/17 10:54 Dose: 10 mg Ondansetron HCl (Zofran Inj) 4 mg IVP ONCE PRN PRN Reason: Nausea/Vomiting Last Admin: 11/29/17 10:53 Dose: 4 mg Rosuvastatin Calcium (Crestor) 5 mg PO HS [facility] Last Admin: 11/28/17 21:37 Dose: 5 mg Topiramate (Topamax) 100 mg PO [facility] Last Admin: 11/28/17 21:36 Dose: 100 mg Tramadol HCl (Ultram) 50 mg PO TID PRN PRN Reason: For a low back pain. Last Admin: 11/28/17 08:17 Dose: 50 mg - Labs Labs: 11/29/17 08:06 11/29/17 08:06 - Constitutional Appears: No Acute Distress, Chronically Ill - Head Exam Head Exam: NORMAL INSPECTION - Eye Exam Eye Exam: Normal appearance - ENT Exam ENT Exam: Normal Exam - Neck Exam Neck Exam: Normal Inspection - Respiratory Exam Respiratory Exam: Clear to Ausculation Bilateral, NORMAL BREATHING PATTERN - Cardiovascular Exam Cardiovascular Exam: REGULAR RHYTHM, Murmur - GI/Abdominal Exam GI & Abdominal Exam: Soft, Normal Bowel Sounds - Extremities Exam Extremities Exam: Normal Inspection - Back Exam Additional comments: Very tender low back. - Neurological Exam Neurological Exam: Alert, Oriented x3 - Psychiatric Exam Psychiatric exam: Anxious - Skin Skin Exam: Dry, Intact, Normal Color, Warm Assessment and Plan (1) Dehydration Status: Resolved (2) Acute gastroenteritis Status: Resolved (3) Severe low back pain Assessment & Plan: Physical therapy . Status: Acute (4) Insulin dependent diabetes mellitus Status: Chronic (5) Paranoid states (delusional disorders) Status: Chronic (6) Hyponatremia Status: Resolved
[2017-11-29] MEDS ORDERED: Bisacodyl 5mg EC Tab PO ONE (21:16)
[2017-11-29] MEDS: (Lantus) Insulin Glargine, Recombinant SC SCH (21:32)
[2017-11-30] MEDS: (Novolog) Insulin Aspart, Recombinant 100 u/ml 10 ml vial SC SCH ×5 (08:24→22:01)
[2017-11-30] MEDS: Enoxaparin 40 mg Syringe SC SCH (09:53)
[2017-11-30] MEDS: (Lantus) Insulin Glargine, Recombinant SC SCH (21:51)
[2017-12-01] MEDS: (Novolog) Insulin Aspart, Recombinant 100 u/ml 10 ml vial SC SCH ×4 (08:19→21:34)
[2017-12-01] MEDS: Enoxaparin 40 mg Syringe SC SCH (09:40)
--- NOTE | 2017-12-01 10:31 | CP.PCM.PN ---
Subjective - Date & Time of Evaluation Date of Evaluation: 12/01/17 Time of Evaluation: 10:23 - Subjective Subjective: SPINE Pt's MRI reviewed. It shows a spondylolisthesis at L4-5 with resultant stenosis , as well as stenosis at L5-S1. DJD throughout. Has acute compression fx of L3. Pt denies any problems with her lower back prior to these recent falls. Will order Damon brace and mobilize pt as tolerated. If she fails to respond to PT/ modalities, consider epidural steroid injection at L5-S1. Most definitive treatment would be decompression,fixation, and fusion of L4-S1 if conservative care fails to improve pain, but would not want to do that until fx of L3 heals. Objective - Vital Signs/Intake and Output Vital Signs (last 24 hours): Temp Pulse Resp BP Pulse Ox 97.9 F 82 20 161/78 H 96 12/01/17 07:41 12/01/17 07:41 12/01/17 07:41 12/01/17 07:41 12/01/17 07:41 Intake and Output: 12/01/17 12/01/17 06:59 18:59 Intake Total 480 Balance 480 - Medications Medications: Current Medications Acetaminophen (Tylenol 325mg Tab) 650 mg PO Q6H PRN PRN Reason: Pain, Mild (1-3) Last Admin: 11/30/17 21:50 Dose: 650 mg Amlodipine Besylate (Norvasc) 5 mg PO DAILY [facility] Last Admin: 12/01/17 09:41 Dose: 5 mg Bupropion HCl (Wellbutrin) 200 mg PO DAILY [facility] Last Admin: 12/01/17 09:41 Dose: 200 mg Clopidogrel Bisulfate (Plavix) 75 mg PO DAILY [facility] Last Admin: 12/01/17 09:41 Dose: 75 mg Docusate Sodium (Colace) 100 mg PO TID [facility] Last Admin: 12/01/17 09:41 Dose: 100 mg Enoxaparin Sodium (Lovenox) 40 mg SC DAILY [facility] Last Admin: 12/01/17 09:40 Dose: 40 mg Famotidine (Pepcid) 20 mg PO BID [facility] Last Admin: 12/01/17 09:41 Dose: 20 mg Insulin Aspart (Novolog) 0 unit SC ACHS [facility] PRN Reason: Protocol Last Admin: 12/01/17 08:19 Dose: 2 unit Insulin Glargine (Lantus) 30 unit SC [facility] Last Admin: 11/30/17 21:51 Dose: 30 units Montelukast Sodium (Singulair) 10 mg PO DAILY [facility] Last Admin: 12/01/17 09:41 Dose: 10 mg Ondansetron HCl (Zofran Inj) 4 mg IVP ONCE PRN PRN Reason: Nausea/Vomiting Last Admin: 11/29/17 10:53 Dose: 4 mg Rosuvastatin Calcium (Crestor) 5 mg PO [facility] Last Admin: 11/30/17 21:49 Dose: 5 mg Topiramate (Topamax) 100 mg PO [facility] Last Admin: 11/30/17 21:49 Dose: 100 mg Tramadol HCl (Ultram) 50 mg PO TID PRN PRN Reason: For a low back pain. Last Admin: 12/01/17 09:42 Dose: 50 mg - Labs Labs: 11/29/17 08:06 11/29/17 08:06
--- NOTE | 2017-12-01 14:05 | CP.PCM.PN ---
Subjective - Date & Time of Evaluation Date of Evaluation: 12/01/17 Time of Evaluation: 14:03 - Subjective Subjective: Patient still with back pain. Back brace ordered by Dr Lora before [facility]. Patient is also having constipation for the last 6 days, not relieveed by Dulcolax. Will order Lactullose PO q 2 h until BM occurs. Objective - Vital Signs/Intake and Output Vital Signs (last 24 hours): Temp Pulse Resp BP Pulse Ox 97.9 F 82 20 161/78 H 96 12/01/17 07:41 12/01/17 12:15 12/01/17 07:41 12/01/17 12:15 12/01/17 12:15 Intake and Output: 12/01/17 12/01/17 06:59 18:59 Intake Total 480 Balance 480 - Medications Medications: Current Medications Acetaminophen (Tylenol 325mg Tab) 650 mg PO Q6H PRN PRN Reason: Pain, Mild (1-3) Last Admin: 11/30/17 21:50 Dose: 650 mg Amlodipine Besylate (Norvasc) 5 mg PO DAILY [facility] Last Admin: 12/01/17 09:41 Dose: 5 mg Bupropion HCl (Wellbutrin) 200 mg PO DAILY [facility] Last Admin: 12/01/17 09:41 Dose: 200 mg Clopidogrel Bisulfate (Plavix) 75 mg PO DAILY [facility] Last Admin: 12/01/17 09:41 Dose: 75 mg Docusate Sodium (Colace) 100 mg PO TID [facility] Last Admin: 12/01/17 13:50 Dose: 100 mg Enoxaparin Sodium (Lovenox) 40 mg SC DAILY [facility] Last Admin: 12/01/17 09:40 Dose: 40 mg Famotidine (Pepcid) 20 mg PO BID [facility] Last Admin: 12/01/17 09:41 Dose: 20 mg Insulin Aspart (Novolog) 0 unit SC ACHS [facility] PRN Reason: Protocol Last Admin: 12/01/17 11:53 Dose: 4 unit Insulin Glargine (Lantus) 30 unit SC HS [facility] Last Admin: 11/30/17 21:51 Dose: 30 units Lactulose (Enulose) 20 gm PO Q2H [facility] Montelukast Sodium (Singulair) 10 mg PO DAILY [facility] Last Admin: 12/01/17 09:41 Dose: 10 mg Ondansetron HCl (Zofran Inj) 4 mg IVP ONCE PRN PRN Reason: Nausea/Vomiting Last Admin: 11/29/17 10:53 Dose: 4 mg Rosuvastatin Calcium (Crestor) 5 mg PO HS [facility] Last Admin: 11/30/17 21:49 Dose: 5 mg Topiramate (Topamax) 100 mg PO HS [facility] Last Admin: 11/30/17 21:49 Dose: 100 mg Tramadol HCl (Ultram) 50 mg PO TID PRN PRN Reason: For a low back pain. Last Admin: 12/01/17 09:42 Dose: 50 mg - Labs Labs: 11/29/17 08:06 11/29/17 08:06 - Constitutional Appears: Well, No Acute Distress, Chronically Ill - Head Exam Head Exam: NORMAL INSPECTION - Eye Exam Eye Exam: Normal appearance - ENT Exam ENT Exam: Normal Exam - Neck Exam Neck Exam: Normal Inspection - Respiratory Exam Respiratory Exam: Clear to Ausculation Bilateral, NORMAL BREATHING PATTERN - Cardiovascular Exam Cardiovascular Exam: REGULAR RHYTHM, Murmur - GI/Abdominal Exam GI & Abdominal Exam: Soft, Normal Bowel Sounds - Rectal Exam Rectal Exam: Deferred - Extremities Exam Extremities Exam: Normal Inspection - Back Exam Additional comments: Very tender low back. - Neurological Exam Neurological Exam: Alert, Awake, Oriented x3 - Psychiatric Exam Psychiatric exam: Anxious - Skin Skin Exam: Dry, Intact, Normal Color, Warm Assessment and Plan (1) Dehydration Status: Resolved (2) Acute gastroenteritis Status: Resolved (3) Severe low back pain Assessment & Plan: Back brace ordered by Dr Lora. Status: Acute (4) Insulin dependent diabetes mellitus Status: Chronic (5) Paranoid states (delusional disorders) Status: Chronic (6) Hyponatremia Status: Resolved
--- NOTE | 2017-12-01 14:15 | CP.PCM.PN ---
Subjective - Date & Time of Evaluation Date of Evaluation: 12/01/17 Time of Evaluation: 12:00 - Subjective Subjective: Patient states back pain is the same. She denies numbness/tingling/denies any new complaints. Review of Systems - Review of Systems All systems: reviewed and no additional remarkable complaints except - Cardiovascular Cardiovascular: UNREMARKABLE - Respiratory Respiratory: UNREMARKABLE - Gastrointestinal Gastrointestinal: UNREMARKABLE - Musculoskeletal Musculoskeletal: As Par HPI - Integumentary Integumentary: UNREMARKABLE - Neurological Neurological: UNREMARKABLE - Hematologic/Lymphatic Hematologic: UNREMARKABLE Objective - Vital Signs/Intake and Output Vital Signs (last 24 hours): Temp Pulse Resp BP Pulse Ox 97.9 F 82 20 161/78 H 96 12/01/17 07:41 12/01/17 12:15 12/01/17 07:41 12/01/17 12:15 12/01/17 12:15 Intake and Output: 12/01/17 12/01/17 06:59 18:59 Intake Total 480 Balance 480 - Medications Medications: Current Medications Acetaminophen (Tylenol 325mg Tab) 650 mg PO Q6H PRN PRN Reason: Pain, Mild (1-3) Last Admin: 11/30/17 21:50 Dose: 650 mg Amlodipine Besylate (Norvasc) 5 mg PO DAILY [facility] Last Admin: 12/01/17 09:41 Dose: 5 mg Bupropion HCl (Wellbutrin) 200 mg PO DAILY [facility] Last Admin: 12/01/17 09:41 Dose: 200 mg Clopidogrel Bisulfate (Plavix) 75 mg PO DAILY [facility] Last Admin: 12/01/17 09:41 Dose: 75 mg Docusate Sodium (Colace) 100 mg PO TID [facility] Last Admin: 12/01/17 13:50 Dose: 100 mg Enoxaparin Sodium (Lovenox) 40 mg SC DAILY [facility] Last Admin: 12/01/17 09:40 Dose: 40 mg Famotidine (Pepcid) 20 mg PO BID [facility] Last Admin: 12/01/17 09:41 Dose: 20 mg Insulin Aspart (Novolog) 0 unit SC ACHS [facility] PRN Reason: Protocol Last Admin: 12/01/17 11:53 Dose: 4 unit Insulin Glargine (Lantus) 30 unit SC HS [facility] Last Admin: 11/30/17 21:51 Dose: 30 units Lactulose (Enulose) 20 gm PO Q2H [facility] Montelukast Sodium (Singulair) 10 mg PO DAILY [facility] Last Admin: 12/01/17 09:41 Dose: 10 mg Ondansetron HCl (Zofran Inj) 4 mg IVP ONCE PRN PRN Reason: Nausea/Vomiting Last Admin: 11/29/17 10:53 Dose: 4 mg Rosuvastatin Calcium (Crestor) 5 mg PO HS [facility] Last Admin: 11/30/17 21:49 Dose: 5 mg Topiramate (Topamax) 100 mg PO HS [facility] Last Admin: 11/30/17 21:49 Dose: 100 mg Tramadol HCl (Ultram) 50 mg PO TID PRN PRN Reason: For a low back pain. Last Admin: 12/01/17 09:42 Dose: 50 mg - Labs Labs: 11/29/17 08:06 11/29/17 08:06 - Constitutional Appears: Well, No Acute Distress - Cardiovascular Exam Additional comments: +DP/PT pulses - Extremities Exam Additional comments: calves soft NT neg homans +ROM ankle/toes/knee/hips - Neurological Exam Neurological Exam: Alert, Awake Neuro motor strength exam: Left Lower Extremity: 5 (sensation intact), Right Lower Extremity: 5 - Psychiatric Exam Psychiatric exam: Normal Affect, Normal Mood - Skin Skin Exam: Dry, Intact, Normal Color, Warm Assessment and Plan (1) Compression fracture of L3 lumbar vertebra Assessment & Plan: f/u Dr. Lora appreciated per RN, in process of PO/ordering brace mobilization as per Dr. Lora f/u ortho Dr. Appiah prn in office, no orthopedic intervention indicated, defer treatment to orthopedic spine surgeon d/w Dr. Appiah, agrees with above Status: Acute (2) Spondylolisthesis at L4-L5 level Status: Chronic
[2017-12-01] MEDS ORDERED: Bisacodyl 5mg EC Tab PO ONE (15:40)
[2017-12-01] MEDS: (Lantus) Insulin Glargine, Recombinant SC SCH (21:32)
[2017-12-02] MEDS: (Novolog) Insulin Aspart, Recombinant 100 u/ml 10 ml vial SC SCH ×4 (08:35→21:28)
[2017-12-02] MEDS: Enoxaparin 40 mg Syringe SC SCH (11:17)
[2017-12-02] MEDS: (Lantus) Insulin Glargine, Recombinant SC SCH (21:21)
--- NOTE | 2017-12-02 22:47 | CP.PCM.PN ---
Subjective - Date & Time of Evaluation Date of Evaluation: 12/02/17 Time of Evaluation: 13:00 - Subjective Subjective: Patient's low back pain unchanged. Still constipated. Back brace not ready yet. Objective - Vital Signs/Intake and Output Vital Signs (last 24 hours): Temp Pulse Resp BP Pulse Ox 98.7 F 86 20 162/87 H 97 12/02/17 16:00 12/02/17 16:00 12/02/17 16:00 12/02/17 16:00 12/02/17 16:00 - Medications Medications: Current Medications Acetaminophen (Tylenol 325mg Tab) 650 mg PO Q6H PRN PRN Reason: Pain, Mild (1-3) Last Admin: 12/02/17 21:20 Dose: 650 mg Amlodipine Besylate (Norvasc) 5 mg PO DAILY [facility] Last Admin: 12/02/17 11:17 Dose: 5 mg Bupropion HCl (Wellbutrin) 200 mg PO DAILY [facility] Last Admin: 12/02/17 11:18 Dose: 200 mg Clopidogrel Bisulfate (Plavix) 75 mg PO DAILY [facility] Last Admin: 12/02/17 11:17 Dose: 75 mg Docusate Sodium (Colace) 100 mg PO TID [facility] Last Admin: 12/02/17 17:25 Dose: 100 mg Famotidine (Pepcid) 20 mg PO BID [facility] Last Admin: 12/02/17 17:25 Dose: 20 mg Insulin Aspart (Novolog) 0 unit SC ACHS [facility] PRN Reason: Protocol Last Admin: 12/02/17 21:28 Dose: Not Given Insulin Glargine (Lantus) 30 unit SC [facility] Last Admin: 12/02/17 21:21 Dose: 30 units Lactulose (Enulose) 20 gm PO Q2H [facility] Last Admin: 12/02/17 22:05 Dose: 20 gm Montelukast Sodium (Singulair) 10 mg PO DAILY [facility] Last Admin: 12/02/17 11:21 Dose: 10 mg Ondansetron HCl (Zofran Inj) 4 mg IVP ONCE PRN PRN Reason: Nausea/Vomiting Last Admin: 11/29/17 10:53 Dose: 4 mg Rosuvastatin Calcium (Crestor) 5 mg PO [facility] Last Admin: 12/02/17 21:20 Dose: 5 mg Topiramate (Topamax) 100 mg PO HS [facility] Last Admin: 12/02/17 21:20 Dose: 100 mg Tramadol HCl (Ultram) 50 mg PO TID PRN PRN Reason: For a low back pain. Last Admin: 12/01/17 14:46 Dose: 50 mg - Labs Labs: 11/29/17 08:06 11/29/17 08:06 - Constitutional Appears: Chronically Ill - Head Exam Head Exam: NORMAL INSPECTION - Eye Exam Eye Exam: Normal appearance - ENT Exam ENT Exam: Normal Exam - Neck Exam Neck Exam: Normal Inspection - Respiratory Exam Respiratory Exam: Clear to Ausculation Bilateral, NORMAL BREATHING PATTERN - Cardiovascular Exam Cardiovascular Exam: REGULAR RHYTHM - GI/Abdominal Exam GI & Abdominal Exam: Soft, Normal Bowel Sounds - Rectal Exam Rectal Exam: Deferred - Extremities Exam Extremities Exam: Normal Inspection - Back Exam Back Exam: NORMAL INSPECTION - Neurological Exam Neurological Exam: Alert, Awake, Oriented x3 - Psychiatric Exam Psychiatric exam: Anxious - Skin Skin Exam: Dry, Intact, Normal Color, Warm Assessment and Plan (1) Dehydration Status: Resolved (2) Acute gastroenteritis Status: Resolved (3) Severe low back pain Assessment & Plan: To continue PT. Status: Acute (4) Insulin dependent diabetes mellitus Status: Chronic (5) Paranoid states (delusional disorders) Status: Chronic (6) Hyponatremia Status: Resolved
--- NOTE | 2017-12-03 02:26 | CP.PCM.PN ---
Subjective - Date & Time of Evaluation Date of Evaluation: 12/03/17 Time of Evaluation: 02:18 - Subjective Subjective: House Resident called for black emesis, constipation x 9 days Patient seen and examined at bedside with Proof Machine Operator. Patient has not had a bowel movement since 11/23/17. She reported 6 episodes of black emesis today along with abdominal distention and new onset abdominal pain. On exam: Hypoactive bowel sounds, distended abdomen noted, umbilicus is stretched out. TTP lower abdomen, RLQ and LLQ. A/P Reviewed previous CT scan on 11/23 should moderate constipation - no obstruction at that time. Patient's renal function is WNL- will order CT Scan abdomen and pelvis w/ IV contrast to rule out obstruction. CBC, CMP, PT, PTT, VBG ordered as well. Will administer Zofran and Protonix. Primary attending will be notified in the morning. Марина Moreno Dr. DO PGY-1 Objective - Vital Signs/Intake and Output Vital Signs (last 24 hours): Temp Pulse Resp BP Pulse Ox 97.9 F 96 H 20 168/67 H 96 12/03/17 00:00 12/03/17 00:00 12/03/17 00:00 12/03/17 00:00 12/03/17 00:00 - Medications Medications: Current Medications Acetaminophen (Tylenol 325mg Tab) 650 mg PO Q6H PRN PRN Reason: Pain, Mild (1-3) Last Admin: 12/02/17 21:20 Dose: 650 mg Amlodipine Besylate (Norvasc) 5 mg PO DAILY [facility] Last Admin: 12/02/17 11:17 Dose: 5 mg Bupropion HCl (Wellbutrin) 200 mg PO DAILY [facility] Last Admin: 12/02/17 11:18 Dose: 200 mg Clopidogrel Bisulfate (Plavix) 75 mg PO DAILY [facility] Last Admin: 12/02/17 11:17 Dose: 75 mg Docusate Sodium (Colace) 100 mg PO TID [facility] Last Admin: 12/02/17 17:25 Dose: 100 mg Famotidine (Pepcid) 20 mg PO BID [facility] Last Admin: 12/02/17 17:25 Dose: 20 mg Insulin Aspart (Novolog) 0 unit SC ACHS [facility] PRN Reason: Protocol Last Admin: 01/23/18 21:28 Dose: Not Given Insulin Glargine (Lantus) 30 unit SC [facility] Last Admin: 12/02/17 21:21 Dose: 30 units Lactulose (Enulose) 20 gm PO Q2H [facility] Last Admin: 12/03/17 00:02 Dose: 20 gm Montelukast Sodium (Singulair) 10 mg PO DAILY [facility] Last Admin: 12/02/17 11:21 Dose: 10 mg Rosuvastatin Calcium (Crestor) 5 mg PO [facility] Last Admin: 12/02/17 21:20 Dose: 5 mg Topiramate (Topamax) 100 mg PO [facility] Last Admin: 12/02/17 21:20 Dose: 100 mg - Labs Labs: 11/29/17 08:06 11/29/17 08:06
[2017-12-03 03:01] LABS: VENOUS BLOOD GAS BASE EXCESS -16.8 mmol/L (0.0-2.0); VENOUS BLOOD GAS PCO2 9 mmHg (40-60); VENOUS BLOOD GAS PO2 184 mm/Hg (30-55); VENOUS BLOOD PH 7.36 (7.32-7.43)
[2017-12-03 03:06] LABS: BASO # 0.1 K/uL (0.0-0.2); BASO % 0.4 % (0.0-2.0); HEMOGLOBIN 13.9 g/dL (11.0-16.0); LYMPH # 0.3 K/uL (1.0-4.3); LYMPH % 1.9 % (20.0-40.0); MEAN CELL VOLUME 93.4 fL (81.0-99.0); MEAN CORPUSCULAR HEMOGLOBIN 31.5 pg (27.0-31.0); MEAN CORPUSCULAR HGB CONC 33.7 g/dL (33.0-37.0); MEAN PLATELET VOLUME 10.4 fL (7.2-11.7); MONO # 5.1 K/uL (0.0-0.8); MONO % 28.3 % (0.0-10.0); NEUT # 12.4 K/uL (1.8-7.0); NEUT % 69.4 % (50.0-75.0); PLATELET COUNT 252 K/uL (130-400); RED CELL DISTRIBUTION WIDTH 13.8 % (11.5-14.5); WHITE BLOOD COUNT 17.9 K/uL (4.8-10.8)
[2017-12-03 03:13] LABS: PROTHROMBIN TIME 11.3 SECONDS (9.7-12.2)
[2017-12-03 03:43] LABS: ALB/GLOB RATIO 0.9 (1.0-2.1); ALBUMIN 3.8 g/dL (3.5-5.0); ALT/SGPT 32 U/L (9-52); AST/SGOT 26 U/L (14-36); BLOOD UREA NITROGEN 21 mg/dL (7-17); CALCIUM 10.5 mg/dl (8.6-10.4); GFR AFRICAN-AMERICAN > 60; GFR NON-AFRICAN AMERICAN > 60
[2017-12-03 03:56] LABS: BANDS 1 % (0-2); LYMPHOCYTE 8 % (20-40); MONOCYTE 21 % (0-10); NEUTROPHIL 70 % (50-75); PLATELET ESTIMATE NORMAL (NORMAL); TOTAL CELLS COUNTED 100
[2017-12-03] MEDS ORDERED: Iohexol 350mg/ml 100 ML ONE (04:04)
--- NOTE | 2017-12-03 05:44 | CT ---
EXAM: CT Abdomen and Pelvis With Intravenous Contrast CLINICAL HISTORY: 67 years old, female; Pain; Abdominal pain and other: Costipated since 11-23-2017; Patient HX: 11-23-17 images sent; Additional info: Abdominal pain, concern for obstruction, TECHNIQUE: Axial computed tomography images of the abdomen and pelvis with intravenous contrast. All CT scans at this facility use one or more dose reduction techniques, viz.: automated exposure control; ma/kV adjustment per patient size (including targeted exams where dose is matched to indication; i.e. head); or iterative reconstruction technique. 732 images are submitted. Coronal and sagittal reformatted images were created and reviewed. CONTRAST: 100 mL of [id number] administered intravenously. COMPARISON: CT - ABD PELVIS W/O PO OR IV CONT 2017-11-23 13:00 FINDINGS: Lower thorax: Mild parabronchial cuffing, which can be seen with bronchitis, reactive airway disease or viral pneumonitis versus mild failure. There is hazy patchy infiltration of the lung bases. There is fluid filled esophagus representing delayed emptying versus gastroesophageal reflux. There is moderate hiatal hernia with herniation of gastric fundus into the chest. ABDOMEN: Liver: Fatty liver. Gallbladder and bile ducts: Partially distended gallbladder. Pancreas: Unremarkable. No mass. No ductal dilation. Spleen: Left upper quadrant splenule. Adrenals: Left adrenal nodule measuring 2.8 cm which was seen on prior examination from November 23, 2017 with a mean Hounsfield unit of [address] representing adrenal adenoma. Kidneys and ureters: There is early contrast excretion in the renal collecting system which can obscure renal stones. No hydronephrosis. Stomach and bowel: There is distention of the rectosigmoid colon with stool. There is dilatation of the colon proximal to the area of fecal retention with colonic wall thickening suspicious for stool related colitis with possible some degree of colonic obstruction. Correlation with clinical data constipation versus fecal impaction versus fecal retention is recommended. Appendix: No findings to suggest acute appendicitis. PELVIS: Bladder: Bladder distention. Correlation with patient's voiding status is recommended. Reproductive: Uterus is seen. ABDOMEN and PELVIS: Intraperitoneal space: Unremarkable. No free air. No significant fluid collection. Bones/joints: There is acute to subacute comminuted fracture deformity of the superior endplate of L3 vertebral body which was seen on prior examination of November 23, 2017. There is retropulsion into the canal left more than right measuring 8 mm seen on image 102 series 3. There is possible fracture of the right hemilamina. There is extension of the fracture into the left pedicle seen on image 104 series 3, image 95 series 602 and anterior to the right pedicle seen on image 101 series 3 . The fracture extends vertically through the left of the vertebral body seen on image 74 series 601. There is mild anterolisthesis of L4 over L5.There are anterior flowing osteophytes bridging more than 4 vertebral bodies suggestive of dish. Soft tissues: There is prominence of left more than right psoas muscle representing swelling or hematoma secondary to L3 vertebral body fracture. Vasculature: Unremarkable. No abdominal aortic aneurysm. Lymph nodes: Unremarkable. No enlarged lymph nodes. IMPRESSION: 1. Mild parabronchial cuffing, which can be seen with bronchitis, reactive airway disease or viral pneumonitis versus mild failure. There is hazy patchy infiltration of the lung bases. 2. There is distention of the rectosigmoid colon with stool. There is dilatation of the colon proximal to the area of fecal retention with colonic wall thickening suspicious for stool related colitis with possible some degree of colonic obstruction. Correlation with clinical data constipation versus fecal impaction versus fecal retention is recommended. 3.There is acute to subacute comminuted fracture deformity of L3 vertebral body as described involving left more than right pedicle, right lamina and the fracture line extending through the vertebral body vertically suspicious for unstable L3 vertebral body fracture deformity. These findings were seen on prior examination from November 23, 2017.
[2017-12-03] MEDS ORDERED: Sodium Chloride 0.9% 1,000 ML IV SCH (06:15)
[2017-12-03] MEDS: Aztreonam 1 GM in Sodium Chloride 0.9% 100 ML IVPB SCH ×3 (06:55→23:15)
[2017-12-03] MEDS: metroNIDAZOLE IV 500 mg/100 ml 500 MG/100 ML BAG IVPB SCH ×3 (09:00→21:52)
[2017-12-03] MEDS: Sodium Chloride 0.45% 1,000 ML IV SCH (10:00)
--- NOTE | 2017-12-03 10:11 | CP.PCM.CON ---
History of Present Illness - History of Present Illness History of Present Illness: General Surgery Note for Dr. Arreola Reason for consult: colonic distention and abdominal pain 67 F presents for complaint of abdominal pain and constiaption. Patient was in subacute rehabilitation before the hospital to receive treatment for frequent falls at home. Report associated nausea/vomiting. She is also complaining of a severe low back pain radiating both hips, preventing her from walking. She denies any recent fall, and admits not to have any BM for almost 9 days. She rates pain as severe. She describes it as constant sharp pain located diffusely through out abdomen. Patient admits to being dehydrated recently. LEAD LOADER was called this morning for tachycardia. patient received fecal disimpaction with fleet enemas following. Patient has no more complaints at this time. Review of Systems - Review of Systems All systems: reviewed and no additional remarkable complaints except (as per HPI ) Past Patient History - Infectious Disease Hx of Infectious Diseases: None - Tetanus Immunizations Tetanus Immunization: Unknown - Past Medical History & Family History Past Medical History?: Yes Past Family History: Reviewed and not pertinent - Past Social History Smoking Status: Never Smoked - CARDIAC Hx Hypercholesterolemia: Yes Hx Hypertension: Yes - PULMONARY Hx Asthma: Yes - NEUROLOGICAL HX Cerebrovascular Accident: Yes ( (blood clot left side of brain resolved as per pt.)) - HEENT Hx HEENT Problems: Yes Other/Comment: wear eyeglasses - RENAL Hx Chronic Kidney Disease: No - ENDOCRINE/METABOLIC Hx Diabetes Mellitus Type 1: Yes - HEMATOLOGICAL/ONCOLOGICAL Hx Blood Disorders: No - INTEGUMENTARY Hx Dermatological Problems: Yes Other/Comment: Hx skin rash - MUSCULOSKELETAL/RHEUMATOLOGICAL Hx Arthritis: Yes - GASTROINTESTINAL Hx Gastrointestinal Disorders: No - GENITOURINARY/GYNECOLOGICAL Hx Genitourinary Disorders: Yes Hx Hematuria: Yes Hx Incontinence: Yes Hx Urinary Tract Infection: Yes - PSYCHIATRIC Hx Anxiety: Yes Hx Bipolar Disorder: Yes Hx Depression: Yes Hx Paranoia: Yes Hx Substance Use: No - SURGICAL HISTORY Hx Appendectomy: Yes Hx Coronary Stent: Yes (PCI of the LAD with stent insertion ( [facility]) in 2007 in [place].) - ANESTHESIA Hx Anesthesia: Yes Hx Anesthesia Reactions: No Hx Malignant Hyperthermia: No Has any member of the family had a problem w/ anesthesia?: No Meds Allergies/Adverse Reactions: Allergies Allergy/AdvReac Type Severity Reaction Status Date / Time Penicillins Allergy RASH Verified 11/23/17 12:08 - Medications Medications: Current Medications Acetaminophen (Tylenol 325mg Tab) 650 mg PO Q6H PRN PRN Reason: Pain, Mild (1-3) Last Admin: 12/02/17 21:20 Dose: 650 mg Amlodipine Besylate (Norvasc) 5 mg PO DAILY [facility] Bupropion HCl (Wellbutrin) 200 mg PO DAILY [facility] Last Admin: 12/02/17 11:18 Dose: 200 mg Clopidogrel Bisulfate (Plavix) 75 mg PO DAILY [facility] Last Admin: 12/02/17 11:17 Dose: 75 mg Famotidine (Pepcid) 20 mg PO BID [facility] Last Admin: 12/02/17 17:25 Dose: 20 mg Aztreonam 1 gm/ Sodium (Chloride) 100 mls @ 100 mls/hr IVPB Q8H [facility] Last Admin: 12/03/17 06:55 Dose: 100 mls/hr Metronidazole (Flagyl) 500 mg in 100 mls @ 100 mls/hr IVPB Q8 [facility] Sodium Chloride (Sodium Chloride 0.45%) 1,000 mls @ 60 mls/hr IV .[id number] [facility] Insulin Aspart (Novolog) 0 unit SC ACHS [facility] PRN Reason: Protocol Last Admin: 12/02/17 21:28 Dose: Not Given Insulin Glargine (Lantus) 30 unit SC [facility] Last Admin: 12/02/17 21:21 Dose: 30 units Montelukast Sodium (Singulair) 10 mg PO DAILY [facility] Last Admin: 12/02/17 11:21 Dose: 10 mg Ondansetron HCl (Zofran Inj) 4 mg IVP Q4H PRN PRN Reason: Nausea/Vomiting Last Admin: 12/03/17 08:53 Dose: 4 mg Pantoprazole Sodium (Protonix Inj) 40 mg IVP DAILY [facility] Rosuvastatin Calcium (Crestor) 5 mg PO [facility] Last Admin: 12/02/17 21:20 Dose: 5 mg Topiramate (Topamax) 100 mg PO [facility] Last Admin: 12/02/17 21:20 Dose: 100 mg Physical Exam - Constitutional Appears: In Acute Distress - Head Exam Head Exam: ATRAUMATIC, NORMOCEPHALIC - Eye Exam Eye Exam: Normal appearance - ENT Exam ENT Exam: Mucous Membranes Dry - Respiratory Exam Respiratory Exam: NORMAL BREATHING PATTERN - Cardiovascular Exam Cardiovascular Exam: Tachycardia - GI/Abdominal Exam GI & Abdominal Exam: Distended, Guarding, Soft, Tenderness. absent: Firm, Rebound, Rigid - Rectal Exam Rectal Exam: Fecal Impaction Additional comments: copious amount of stool removed - Extremities Exam Extremities exam: Negative for: calf tenderness - Back Exam Back exam: absent: CVA tenderness (L), CVA tenderness (R) - Neurological Exam Neurological exam: Alert, CN II-XII Intact, Oriented x3 - Psychiatric Exam Psychiatric exam: Anxious - Skin Skin Exam: Dry, Intact, Normal Color, Warm Results - Vital Signs Recent Vital Signs: Last Vital Signs Temp 97.9 F 12/03/17 00:00 Pulse 96 H 12/03/17 00:00 Resp 20 12/03/17 00:00 BP 168/67 H 12/03/17 00:00 Pulse Ox 96 12/03/17 00:00 - Labs Result Diagrams: 12/03/17 03:01 12/03/17 03:01 Labs: Laboratory Results - last 24 hr 12/02/17 12/02/17 12/02/17 11:08 16:34 21:18 WBC RBC Hgb Hct MCV MCH MCHC RDW Plt Count MPV Neut % (Auto) Lymph % (Auto) [place] % (Auto) Eos % (Auto) Baso % (Auto) Neut # Lymph # [place] # Eos # Baso # Neutrophils % (Manual) Band Neutrophils % Lymphocytes % (Manual) Monocytes % (Manual) Platelet Estimate PT INR APTT pO2 VBG pH VBG pCO2 VBG HCO3 VBG Total CO2 VBG O2 Sat (Calc) VBG Base Excess VBG Potassium Sodium Chloride Glucose Lactate Blood Gas Comments Crit Value Called To Crit Value Called By Crit Value Read Back Blood Gas Notified Time Potassium Carbon Dioxide Anion Gap BUN Creatinine Est GFR ( Amer) Est GFR (Non-Af Amer) POC Glucose (mg/dL) 225 H 260 H 253 H Random Glucose Calcium Total Bilirubin AST ALT Alkaline Phosphatase Total Protein Albumin Globulin Albumin/Globulin Ratio Venous Blood Potassium 12/03/17 12/03/17 12/03/17 02:50 03:01 03:01 WBC 17.9 H D RBC 4.40 Hgb 13.9 D Hct 41.1 MCV 93.4 MCH 31.5 H MCHC 33.7 RDW 13.8 Plt Count 252 D MPV 10.4 Neut % (Auto) 69.4 Lymph % (Auto) 1.9 L [place] % (Auto) 28.3 H Eos % (Auto) 0.0 Baso % (Auto) 0.4 Neut # 12.4 H Lymph # 0.3 L [place] # 5.1 H Eos # 0.0 Baso # 0.1 Neutrophils % (Manual) 70 Band Neutrophils % 1 Lymphocytes % (Manual) 8 L Monocytes % (Manual) 21 H Platelet Estimate Normal PT 11.3 INR 1.0 APTT 38 H pO2 184 H VBG pH 7.36 VBG pCO2 9 L* VBG HCO3 11.9 VBG Total CO2 5.4 L VBG O2 Sat (Calc) 100.6 H VBG Base Excess -16.8 L VBG Potassium 0.6 L* Sodium 151.0 H Chloride 133.0 H Glucose 96 Lactate 0.5 L Blood Gas Comments Rn informed Crit Value Called To Michelle connell rn Crit Value Called By Stephan diaz Crit Value Read Back Y Blood Gas Notified Time 259 Potassium Carbon Dioxide Anion Gap BUN Creatinine Est GFR ( Amer) Est GFR (Non-Af Amer) POC Glucose (mg/dL) Random Glucose Calcium Total Bilirubin AST ALT Alkaline Phosphatase Total Protein Albumin Globulin Albumin/Globulin Ratio Venous Blood Potassium 0.6 L* 12/03/17 12/03/17 03:01 07:09 WBC RBC Hgb Hct MCV MCH MCHC RDW Plt Count MPV Neut % (Auto) Lymph % (Auto) [place] % (Auto) Eos % (Auto) Baso % (Auto) Neut # Lymph # [place] # Eos # Baso # Neutrophils % (Manual) Band Neutrophils % Lymphocytes % (Manual) Monocytes % (Manual) Platelet Estimate PT INR APTT pO2 VBG pH VBG pCO2 VBG HCO3 VBG Total CO2 VBG O2 Sat (Calc) VBG Base Excess VBG Potassium Sodium 133 Chloride 100 Glucose Lactate Blood Gas Comments Crit Value Called To Crit Value Called By Crit Value Read Back Blood Gas Notified Time Potassium 4.1 Carbon Dioxide 20 L Anion Gap 17 BUN 21 H Creatinine 0.8 Est GFR ( Amer) > 60 Est GFR (Non-Af Amer) > 60 POC Glucose (mg/dL) 305 H Random Glucose 383 H Calcium 10.5 H Total Bilirubin 0.8 AST 26 ALT 32 Alkaline Phosphatase 249 H D Total Protein 7.8 Albumin 3.8 Globulin 4.0 H Albumin/Globulin Ratio 0.9 L Venous Blood Potassium Assessment & Plan - Assessment and Plan (Free Text) Plan: 67 F with abdominal pain, colonic distention and constipation -Manual disimpaction -Soap and water enema Q3H for 2 doses -Monitor for bowel function -Serial abd exams -Dicussed with Dr. Maxwell Carbone PGY1
--- NOTE | 2017-12-03 10:21 | PCM.RRT ---
BI LEAD Nurses Assessment - Situation Date: 12/03/17 Time BI LEAD was called: 09:30 BI LEAD Responder Arrival Time:: 09:32 BI LEAD Location:: 3T Med/Oncology BI LEAD Reason for Call: Tachycardia BI LEAD Called By: RN - IV IV Inserted during BI LEAD?: No - Respiratory BI LEAD Delivery Method: Nasal Cannula @L/min - Neurological Status (Select all that apply): Alert, Oriented - Constitutional Appears: In Acute Distress - Head Head Exam: ATRAUMATIC, NORMAL INSPECTION - Eyes Eye Exam: Normal appearance - Respiratory Exam Respiratory Exam: Clear to Ausculation Bilateral, NORMAL BREATHING PATTERN - Cardiovascular Exam Cardiovascular Exam: Tachycardia, REGULAR RHYTHM, +S1, +S2 - GI/Abdominal Exam GI & Abdominal Exam: Distended, Firm, Tenderness, Normal Bowel Sounds. absent: Soft - Neurological Exam Neurological Exam: Alert, Awake, Oriented x3 Plan - Assessment of Findings&Treatment Plan Rapid Response called at 9:30 am by RN for tachycardia. Patient was seen and examined at bedside. Patient stated she has chest pain, abdominal pain, palpitations, and rectal pain. Per chart patient has had constipation for the past [address] of the abdomen and pelvis was done today 12/03/17There is distention of the rectosigmoid colon with stool. There is dilatation of the colon proximal to the area of fecal retention with colonic wall thickening suspicious for stool related colitis with possible some degree of colonic obstruction. Correlation with clinical data constipation versus fecal impaction versus fecal retention is recommended. Patient's vitals B/P 193/70 HR 145 O2 95%. EKG was ordered and done which showed Tachycardia NSR. vice president of recruiting Dr. Morales examined patient and reviewed CT of the abdomen and president [employer] Dr. Carbone disimpacted the patient. Patient's IV fluids was also changed to half normal saline @60cc/hr. PMD Dr. Lynn was notified of rapid response.
[2017-12-03] MEDS: (Novolog) Insulin Aspart, Recombinant 100 u/ml 10 ml vial SC SCH ×4 (11:15→21:53)
--- NOTE | 2017-12-03 13:51 | CP.PCM.PN ---
Subjective - Date & Time of Evaluation Date of Evaluation: 12/03/17 Time of Evaluation: 13:49 - Subjective Subjective: Patient has no more abdominal pain after a large BM. Still with a low back pain from a compression fracture of L3. Awaiting back brace to start PT. Objective - Vital Signs/Intake and Output Vital Signs (last 24 hours): Temp Pulse Resp BP Pulse Ox 97.9 F 96 H 20 168/67 H 96 12/03/17 00:00 12/03/17 00:00 12/03/17 00:00 12/03/17 00:00 12/03/17 00:00 - Medications Medications: Current Medications Acetaminophen (Tylenol 325mg Tab) 650 mg PO Q6H PRN PRN Reason: Pain, Mild (1-3) Last Admin: 12/02/17 21:20 Dose: 650 mg Amlodipine Besylate (Norvasc) 5 mg PO DAILY [facility] Last Admin: 12/03/17 11:15 Dose: Not Given Bupropion HCl (Wellbutrin) 200 mg PO DAILY [facility] Last Admin: 12/02/17 11:18 Dose: 200 mg Clopidogrel Bisulfate (Plavix) 75 mg PO DAILY [facility] Last Admin: 12/03/17 11:16 Dose: Not Given Famotidine (Pepcid) 20 mg PO BID [facility] Last Admin: 12/03/17 11:16 Dose: Not Given Aztreonam 1 gm/ Sodium (Chloride) 100 mls @ 100 mls/hr IVPB Q8H [facility] Last Admin: 12/03/17 06:55 Dose: 100 mls/hr Metronidazole (Flagyl) 500 mg in 100 mls @ 100 mls/hr IVPB Q8 [facility] Last Admin: 12/03/17 09:00 Dose: 100 mls/hr Sodium Chloride (Sodium Chloride 0.45%) 1,000 mls @ 60 mls/hr IV .[id number] [facility] Last Admin: 12/03/17 10:00 Dose: 60 mls/hr Insulin Aspart (Novolog) 0 unit SC ACHS [facility] PRN Reason: Protocol Last Admin: 12/03/17 11:15 Dose: Not Given Insulin Glargine (Lantus) 30 unit SC HS [facility] Last Admin: 12/02/17 21:21 Dose: 30 units Montelukast Sodium (Singulair) 10 mg PO DAILY [facility] Last Admin: 12/03/17 11:16 Dose: Not Given Ondansetron HCl (Zofran Inj) 4 mg IVP Q4H PRN PRN Reason: Nausea/Vomiting Last Admin: 12/03/17 08:53 Dose: 4 mg Pantoprazole Sodium (Protonix Inj) 40 mg IVP DAILY [facility] Last Admin: 12/03/17 11:23 Dose: Not Given Rosuvastatin Calcium (Crestor) 5 mg PO [facility] Last Admin: 12/02/17 21:20 Dose: 5 mg Topiramate (Topamax) 100 mg PO [facility] Last Admin: 12/02/17 21:20 Dose: 100 mg - Labs Labs: 12/03/17 03:01 12/03/17 03:01 PT 11.3 SECONDS (9.7-12.2) 12/03/17 03:01 INR 1.0 12/03/17 03:01 APTT 38 SECONDS (21-34) H 12/03/17 03:01 - Constitutional Appears: No Acute Distress, Chronically Ill - Head Exam Head Exam: NORMAL INSPECTION - Eye Exam Eye Exam: Normal appearance - ENT Exam ENT Exam: Normal Exam - Neck Exam Neck Exam: Normal Inspection - Respiratory Exam Respiratory Exam: Clear to Ausculation Bilateral, NORMAL BREATHING PATTERN - Cardiovascular Exam Cardiovascular Exam: REGULAR RHYTHM, Murmur - GI/Abdominal Exam GI & Abdominal Exam: Soft, Normal Bowel Sounds - Rectal Exam Rectal Exam: Deferred - Extremities Exam Extremities Exam: Normal Inspection - Back Exam Additional comments: Tenderness of the lower back. - Neurological Exam Neurological Exam: Alert, Awake, Oriented x3 - Skin Skin Exam: Dry, Normal Color, Warm Assessment and Plan (1) Dehydration Status: Resolved (2) Acute gastroenteritis Status: Resolved (3) Severe low back pain Assessment & Plan: From an unstable compression fracture of L3. Status: Acute (4) Insulin dependent diabetes mellitus Status: Chronic (5) Paranoid states (delusional disorders) Status: Chronic (6) Hyponatremia Status: Resolved
[2017-12-03] MEDS: (Lantus) Insulin Glargine, Recombinant SC SCH (21:52)
[2017-12-04] MEDS: Sodium Chloride 0.45% 1,000 ML IV SCH ×3 (02:40→20:16)
[2017-12-04] MEDS: metroNIDAZOLE IV 500 mg/100 ml 500 MG/100 ML BAG IVPB SCH ×3 (05:30→21:55)
[2017-12-04] MEDS: Aztreonam 1 GM in Sodium Chloride 0.9% 100 ML IVPB SCH ×3 (06:39→21:54)
[2017-12-04] MEDS: (Novolog) Insulin Aspart, Recombinant 100 u/ml 10 ml vial SC SCH ×4 (08:32→21:53)
--- NOTE | 2017-12-04 09:16 | CP.PCM.PN ---
Subjective - Date & Time of Evaluation Date of Evaluation: 12/04/17 Time of Evaluation: 07:05 - Subjective Subjective: General Surgery Note for Dr. Arreola Patient seen and examined at bedside. No acute event overnight. Patient is s/p bedside manual fecal disimpaction. Patient was given two enema yesterday and had two BMs. Patient still has mild pain and has not gone since. She states that she feels like she can go more. Objective - Vital Signs/Intake and Output Vital Signs (last 24 hours): Temp Pulse Resp BP Pulse Ox 97.7 F 92 H 20 162/79 H 97 12/04/17 08:13 12/04/17 08:13 12/04/17 08:13 12/04/17 08:13 12/04/17 08:13 Intake and Output: 12/04/17 12/04/17 06:59 18:59 Intake Total 1900 Balance 1900 - Medications Medications: Current Medications Acetaminophen (Tylenol 325mg Tab) 650 mg PO Q6H PRN PRN Reason: Pain, Mild (1-3) Last Admin: 12/03/17 17:26 Dose: 650 mg Amlodipine Besylate (Norvasc) 5 mg PO DAILY [facility] Last Admin: 12/03/17 11:15 Dose: Not Given Bupropion HCl (Wellbutrin) 200 mg PO DAILY [facility] Last Admin: 12/02/17 11:18 Dose: 200 mg Clopidogrel Bisulfate (Plavix) 75 mg PO DAILY [facility] Last Admin: 12/03/17 11:16 Dose: Not Given Famotidine (Pepcid) 20 mg PO BID [facility] Last Admin: 12/03/17 18:06 Dose: Not Given Aztreonam 1 gm/ Sodium (Chloride) 100 mls @ 100 mls/hr IVPB Q8H [facility] Last Admin: 12/04/17 06:39 Dose: 100 mls/hr Metronidazole (Flagyl) 500 mg in 100 mls @ 100 mls/hr IVPB Q8 [facility] Last Admin: 12/04/17 05:30 Dose: 100 mls/hr Sodium Chloride (Sodium Chloride 0.45%) 1,000 mls @ 60 mls/hr IV .[id number] [facility] Last Admin: 12/04/17 02:40 Dose: Not Given Insulin Aspart (Novolog) 0 unit SC ACHS [facility] PRN Reason: Protocol Last Admin: 12/04/17 08:32 Dose: 8 unit Insulin Glargine (Lantus) 30 unit SC [facility] Last Admin: 12/03/17 21:52 Dose: 30 units Montelukast Sodium (Singulair) 10 mg PO DAILY [facility] Last Admin: 12/03/17 11:16 Dose: Not Given Ondansetron HCl (Zofran Inj) 4 mg IVP Q4H PRN PRN Reason: Nausea/Vomiting Last Admin: 12/03/17 08:53 Dose: 4 mg Pantoprazole Sodium (Protonix Inj) 40 mg IVP DAILY [facility] Last Admin: 12/03/17 11:23 Dose: Not Given Rosuvastatin Calcium (Crestor) 5 mg PO [facility] Last Admin: 12/03/17 21:52 Dose: 5 mg Topiramate (Topamax) 100 mg PO [facility] Last Admin: 12/03/17 21:52 Dose: 100 mg - Labs Labs: 12/03/17 03:01 12/03/17 03:01 PT 11.3 SECONDS (9.7-12.2) 12/03/17 03:01 INR 1.0 12/03/17 03:01 APTT 38 SECONDS (21-34) H 12/03/17 03:01 - Constitutional Appears: No Acute Distress - Head Exam Head Exam: ATRAUMATIC, NORMOCEPHALIC - Eye Exam Eye Exam: Normal appearance - ENT Exam ENT Exam: Mucous Membranes Dry - Respiratory Exam Respiratory Exam: NORMAL BREATHING PATTERN - Cardiovascular Exam Cardiovascular Exam: REGULAR RHYTHM - GI/Abdominal Exam GI & Abdominal Exam: Soft, Tenderness. absent: Distended, Firm, Guarding, Rigid , Rebound - Extremities Exam Extremities Exam: Normal Capillary Refill - Neurological Exam Neurological Exam: Alert, Awake, Oriented x3 - Psychiatric Exam Psychiatric exam: Normal Affect, Normal Mood - Skin Skin Exam: Dry, Intact, Normal Color, Warm Assessment and Plan - Assessment and Plan (Free Text) Plan: 67 F with abdominal pain, colonic distention and constipation -Continue enemas for relief -Monitor bowel function -Serial abd exams -Discussed with Dr. Maxwell Carbone PGY1
--- NOTE | 2017-12-04 12:40 | CARD ---
APPROVED REPORT EKG Measurement Heart [id number] <Conclusion> Sinus tachycardia with PVC's Voltage criteria for left ventricular hypertrophy Inferior infarct, age undetermined ST & T wave abnormality, consider lateral ischemia Abnormal ECG
[2017-12-04 13:58] LABS: MEAN PLATELET VOLUME 10.1 fL (7.2-11.7)
[2017-12-04 14:03] LABS: BASO % 0.1 % (0.0-2.0); LYMPH % 4.8 % (20.0-40.0); MEAN CELL VOLUME 93.7 fL (81.0-99.0); MEAN CORPUSCULAR HEMOGLOBIN 31.9 pg (27.0-31.0); MONO # 4.6 K/uL (0.0-0.8); NEUT # 14.7 K/uL (1.8-7.0); NEUT % 72.3 % (50.0-75.0); PLATELET COUNT 177 K/uL (130-400); RBC 3.72 Mil/uL (3.80-5.20); RED CELL DISTRIBUTION WIDTH 13.6 % (11.5-14.5); WHITE BLOOD COUNT 20.3 K/uL (4.8-10.8)
[2017-12-04 14:07] LABS: HEMOGLOBIN 11.8 g/dL (11.0-16.0); MONO % 22.8 % (0.0-10.0)
[2017-12-04 14:35] LABS: BLOOD UREA NITROGEN 26 mg/dL (7-17); CALCIUM 9.3 mg/dl (8.6-10.4); GFR AFRICAN-AMERICAN > 60; GFR NON-AFRICAN AMERICAN > 60
[2017-12-04 16:17] LABS: BANDS 1 % (0-2); LYMPHOCYTE 2 % (20-40); MONOCYTE 19 % (0-10); NEUTROPHIL 78 % (50-75); PLATELET ESTIMATE NORMAL (NORMAL); TOTAL CELLS COUNTED 100
--- NOTE | 2017-12-04 18:38 | CP.PCM.PN ---
Subjective - Date & Time of Evaluation Date of Evaluation: 12/04/17 Time of Evaluation: 18:35 - Subjective Subjective: Patient complaining of lowe abdomina, rectal pain and poor appetite. She had a BM earlier after an enema. Denies any nausea, vomiting. Afebrile. Objective - Vital Signs/Intake and Output Vital Signs (last 24 hours): Temp Pulse Resp BP Pulse Ox 98.7 F 85 20 127/72 98 12/04/17 16:00 12/04/17 16:00 12/04/17 16:00 12/04/17 16:00 12/04/17 16:00 Intake and Output: 12/04/17 12/04/17 06:59 18:59 Intake Total 1900 Balance 1900 - Medications Medications: Current Medications Acetaminophen (Tylenol 325mg Tab) 650 mg PO Q6H PRN PRN Reason: Pain, Mild (1-3) Last Admin: 12/03/17 17:26 Dose: 650 mg Amlodipine Besylate (Norvasc) 5 mg PO DAILY [facility] Last Admin: 12/04/17 10:26 Dose: 5 mg Bupropion HCl (Wellbutrin) 200 mg PO DAILY [facility] Last Admin: 12/02/17 11:18 Dose: 200 mg Clopidogrel Bisulfate (Plavix) 75 mg PO DAILY [facility] Last Admin: 12/04/17 10:25 Dose: 75 mg Famotidine (Pepcid) 20 mg PO BID [facility] Last Admin: 12/04/17 10:25 Dose: 20 mg Aztreonam 1 gm/ Sodium (Chloride) 100 mls @ 100 mls/hr IVPB Q8H [facility] Last Admin: 12/04/17 14:23 Dose: 100 mls/hr Metronidazole (Flagyl) 500 mg in 100 mls @ 100 mls/hr IVPB Q8 [facility] Last Admin: 12/04/17 14:21 Dose: 100 mls/hr Sodium Chloride (Sodium Chloride 0.45%) 1,000 mls @ 60 mls/hr IV .[id number] [facility] Last Admin: 12/04/17 10:30 Dose: 60 mls/hr Insulin Aspart (Novolog) 0 unit SC ACHS [facility] PRN Reason: Protocol Last Admin: 12/04/17 12:20 Dose: 8 unit Insulin Glargine (Lantus) 30 unit SC HS [facility] Last Admin: 12/03/17 21:52 Dose: 30 units Montelukast Sodium (Singulair) 10 mg PO DAILY [facility] Last Admin: 12/04/17 10:25 Dose: 10 mg Ondansetron HCl (Zofran Inj) 4 mg IVP Q4H PRN PRN Reason: Nausea/Vomiting Last Admin: 12/03/17 08:53 Dose: 4 mg Pantoprazole Sodium (Protonix Inj) 40 mg IVP DAILY [facility] Last Admin: 12/04/17 10:26 Dose: 40 mg Rosuvastatin Calcium (Crestor) 5 mg PO [facility] Last Admin: 12/03/17 21:52 Dose: 5 mg Topiramate (Topamax) 100 mg PO [facility] Last Admin: 12/03/17 21:52 Dose: 100 mg - Labs Labs: 12/04/17 13:50 12/04/17 13:50 PT 11.3 SECONDS (9.7-12.2) 12/03/17 03:01 INR 1.0 12/03/17 03:01 APTT 38 SECONDS (21-34) H 12/03/17 03:01 - Constitutional Appears: No Acute Distress, Chronically Ill - Head Exam Head Exam: NORMAL INSPECTION - Eye Exam Eye Exam: Normal appearance - ENT Exam ENT Exam: Normal Exam - Neck Exam Neck Exam: Normal Inspection - Respiratory Exam Respiratory Exam: Clear to Ausculation Bilateral, NORMAL BREATHING PATTERN - Cardiovascular Exam Cardiovascular Exam: REGULAR RHYTHM - GI/Abdominal Exam GI & Abdominal Exam: Soft, Normal Bowel Sounds Additional comments: Mild tenderness of the RLQ. No guarding. - Rectal Exam Rectal Exam: Deferred - Extremities Exam Extremities Exam: Normal Inspection - Back Exam Back Exam: NORMAL INSPECTION - Neurological Exam Neurological Exam: Alert, Awake, Oriented x3 - Psychiatric Exam Psychiatric exam: Anxious - Skin Skin Exam: Dry, Intact, Normal Color, Warm Assessment and Plan (1) Dehydration Status: Resolved (2) Acute gastroenteritis Status: Resolved (3) Severe low back pain Status: Acute (4) Insulin dependent diabetes mellitus Status: Chronic (5) Paranoid states (delusional disorders) Status: Chronic (6) Hyponatremia Status: Resolved (7) Fecal impaction in rectum Assessment & Plan: Try Lactulose Po . Status: Acute
[2017-12-04] MEDS: (Lantus) Insulin Glargine, Recombinant SC SCH (21:56)
[2017-12-05] MEDS: Aztreonam 1 GM in Sodium Chloride 0.9% 100 ML IVPB SCH ×3 (05:24→21:37)
[2017-12-05] MEDS: metroNIDAZOLE IV 500 mg/100 ml 500 MG/100 ML BAG IVPB SCH ×3 (05:27→21:36)
[2017-12-05] MEDS: (Novolog) Insulin Aspart, Recombinant 100 u/ml 10 ml vial SC SCH ×4 (08:11→21:42)
[2017-12-05] MEDS: Pantoprazole 40 mg EC Tab PO SCH (10:51)
[2017-12-05] MEDS: Sodium Chloride 0.45% 1,000 ML IV SCH (12:05)
--- NOTE | 2017-12-05 17:37 | CP.PCM.PN ---
Subjective - Date & Time of Evaluation Date of Evaluation: 12/05/17 Time of Evaluation: 17:21 - Subjective Subjective: 67 F with abdominal pain, colonic distention and constipation Patient is moving bowels, signing off from surgical perspective if the patient needs re-evaluation please call operating room surgical technician. Discussed with Dr. Maxwell Lopez PGY2 Objective - Vital Signs/Intake and Output Vital Signs (last 24 hours): Temp Pulse Resp BP Pulse Ox 97.6 F 65 20 165/77 H 98 12/05/17 16:00 12/05/17 16:00 12/05/17 16:00 12/05/17 16:00 12/05/17 16:00 Intake and Output: 12/05/17 12/05/17 06:59 18:59 Intake Total 1100 200 Output Total 2 Balance 1100 198 - Medications Medications: Current Medications Acetaminophen (Tylenol 325mg Tab) 650 mg PO Q6H PRN PRN Reason: Pain, Mild (1-3) Last Admin: 12/03/17 17:26 Dose: 650 mg Amlodipine Besylate (Norvasc) 5 mg PO DAILY [facility] Last Admin: 12/05/17 10:40 Dose: 5 mg Bupropion HCl (Wellbutrin) 200 mg PO DAILY [facility] Last Admin: 12/02/17 11:18 Dose: 200 mg Clopidogrel Bisulfate (Plavix) 75 mg PO DAILY [facility] Last Admin: 12/05/17 10:38 Dose: 75 mg Famotidine (Pepcid) 20 mg PO BID [facility] Last Admin: 12/05/17 10:38 Dose: 20 mg Aztreonam 1 gm/ Sodium (Chloride) 100 mls @ 100 mls/hr IVPB Q8H [facility] Last Admin: 12/05/17 15:14 Dose: 100 mls/hr Metronidazole (Flagyl) 500 mg in 100 mls @ 100 mls/hr IVPB Q8 [facility] Last Admin: 12/05/17 14:02 Dose: 100 mls/hr Sodium Chloride (Sodium Chloride 0.45%) 1,000 mls @ 60 mls/hr IV .[id number] [facility] Last Admin: 12/05/17 12:05 Dose: 60 mls/hr Insulin Aspart (Novolog) 0 unit SC ACHS [facility] PRN Reason: Protocol Last Admin: 12/05/17 12:04 Dose: 6 unit Insulin Glargine (Lantus) 30 unit SC [facility] Last Admin: 12/04/17 21:56 Dose: 30 units Lactulose (Enulose) 20 gm PO [facility] Last Admin: 12/04/17 21:55 Dose: 20 gm Montelukast Sodium (Singulair) 10 mg PO DAILY [facility] Last Admin: 12/05/17 10:38 Dose: 10 mg Ondansetron HCl (Zofran Inj) 4 mg IVP Q4H PRN PRN Reason: Nausea/Vomiting Last Admin: 12/03/17 08:53 Dose: 4 mg Pantoprazole Sodium (Protonix Ec Tab) 40 mg PO DAILY [facility] Last Admin: 12/05/17 10:51 Dose: Not Given Rosuvastatin Calcium (Crestor) 5 mg PO [facility] Last Admin: 12/04/17 21:54 Dose: 5 mg Topiramate (Topamax) 100 mg PO [facility] Last Admin: 12/04/17 21:56 Dose: 100 mg - Labs Labs: 12/04/17 13:50 12/04/17 13:50 PT 11.3 SECONDS (9.7-12.2) 12/03/17 03:01 INR 1.0 12/03/17 03:01 APTT 38 SECONDS (21-34) H 12/03/17 03:01
--- NOTE | 2017-12-05 21:21 | CP.PCM.PN ---
Subjective - Date & Time of Evaluation Date of Evaluation: 12/05/17 Time of Evaluation: 13:30 - Subjective Subjective: Patient still with back pain, but less abdominal pain after a BM today. Still no back brace available yet. Objective - Vital Signs/Intake and Output Vital Signs (last 24 hours): Temp Pulse Resp BP Pulse Ox 97.6 F 65 20 165/77 H 98 12/05/17 16:00 12/05/17 16:00 12/05/17 16:00 12/05/17 16:00 12/05/17 16:00 Intake and Output: 12/05/17 12/06/17 18:59 06:59 Intake Total 200 Output Total 2 Balance 198 - Medications Medications: Current Medications Acetaminophen (Tylenol 325mg Tab) 650 mg PO Q6H PRN PRN Reason: Pain, Mild (1-3) Last Admin: 12/03/17 17:26 Dose: 650 mg Amlodipine Besylate (Norvasc) 5 mg PO DAILY [facility] Last Admin: 12/05/17 10:40 Dose: 5 mg Bupropion HCl (Wellbutrin) 200 mg PO DAILY [facility] Last Admin: 12/02/17 11:18 Dose: 200 mg Clopidogrel Bisulfate (Plavix) 75 mg PO DAILY [facility] Last Admin: 12/05/17 10:38 Dose: 75 mg Famotidine (Pepcid) 20 mg PO BID [facility] Last Admin: 12/05/17 18:50 Dose: 20 mg Aztreonam 1 gm/ Sodium (Chloride) 100 mls @ 100 mls/hr IVPB Q8H [facility] Last Admin: 12/05/17 15:14 Dose: 100 mls/hr Metronidazole (Flagyl) 500 mg in 100 mls @ 100 mls/hr IVPB Q8 [facility] Last Admin: 12/05/17 14:02 Dose: 100 mls/hr Sodium Chloride (Sodium Chloride 0.45%) 1,000 mls @ 60 mls/hr IV .[id number] [facility] Last Admin: 12/05/17 12:05 Dose: 60 mls/hr Insulin Aspart (Novolog) 0 unit SC ACHS [facility] PRN Reason: Protocol Last Admin: 12/05/17 17:10 Dose: 2 unit Insulin Glargine (Lantus) 30 unit SC HS [facility] Last Admin: 12/04/17 21:56 Dose: 30 units Lactulose (Enulose) 20 gm PO [facility] Last Admin: 12/04/17 21:55 Dose: 20 gm Montelukast Sodium (Singulair) 10 mg PO DAILY [facility] Last Admin: 12/05/17 10:38 Dose: 10 mg Ondansetron HCl (Zofran Inj) 4 mg IVP Q4H PRN PRN Reason: Nausea/Vomiting Last Admin: 12/03/17 08:53 Dose: 4 mg Pantoprazole Sodium (Protonix Ec Tab) 40 mg PO DAILY [facility] Last Admin: 12/05/17 10:51 Dose: Not Given Rosuvastatin Calcium (Crestor) 5 mg PO [facility] Last Admin: 12/04/17 21:54 Dose: 5 mg Topiramate (Topamax) 100 mg PO [facility] Last Admin: 12/04/17 21:56 Dose: 100 mg - Labs Labs: 12/04/17 13:50 12/04/17 13:50 PT 11.3 SECONDS (9.7-12.2) 12/03/17 03:01 INR 1.0 12/03/17 03:01 APTT 38 SECONDS (21-34) H 12/03/17 03:01 - Constitutional Appears: No Acute Distress, Chronically Ill - Head Exam Head Exam: NORMAL INSPECTION - Eye Exam Eye Exam: Normal appearance - ENT Exam ENT Exam: Normal Exam - Neck Exam Neck Exam: Normal Inspection - Respiratory Exam Respiratory Exam: Clear to Ausculation Bilateral, NORMAL BREATHING PATTERN - Cardiovascular Exam Cardiovascular Exam: REGULAR RHYTHM, Murmur - GI/Abdominal Exam GI & Abdominal Exam: Soft, Normal Bowel Sounds - Rectal Exam Rectal Exam: Deferred - Extremities Exam Extremities Exam: Normal Inspection - Back Exam Additional comments: Tender low back. - Neurological Exam Neurological Exam: Alert, Awake, Oriented x3 - Psychiatric Exam Psychiatric exam: Anxious - Skin Skin Exam: Dry, Normal Color Assessment and Plan (1) Dehydration Status: Resolved (2) Acute gastroenteritis Status: Resolved (3) Severe low back pain Assessment & Plan: Awaiting back brace to start PT Status: Acute (4) Insulin dependent diabetes mellitus Status: Chronic (5) Paranoid states (delusional disorders) Status: Chronic (6) Hyponatremia Status: Resolved (7) Fecal impaction in rectum Status: Acute
[2017-12-05] MEDS: (Lantus) Insulin Glargine, Recombinant SC SCH (21:38)
[2017-12-06] MEDS: metroNIDAZOLE IV 500 mg/100 ml 500 MG/100 ML BAG IVPB SCH ×3 (05:02→23:15)
[2017-12-06] MEDS: Sodium Chloride 0.45% 1,000 ML IV SCH ×2 (05:03→09:04)
[2017-12-06] MEDS: Aztreonam 1 GM in Sodium Chloride 0.9% 100 ML IVPB SCH ×3 (06:27→21:37)
[2017-12-06] MEDS: (Novolog) Insulin Aspart, Recombinant 100 u/ml 10 ml vial SC SCH ×4 (08:55→22:00)
[2017-12-06] MEDS: Pantoprazole 40 mg EC Tab PO SCH (09:12)
--- NOTE | 2017-12-06 14:58 | CP.PCM.PN ---
Subjective - Date & Time of Evaluation Date of Evaluation: 12/06/17 Time of Evaluation: 14:56 - Subjective Subjective: Patient still severe low back pain. No more abdominal pain Objective - Vital Signs/Intake and Output Vital Signs (last 24 hours): Temp Pulse Resp BP Pulse Ox 98.2 F 84 20 165/77 H 99 12/06/17 00:00 12/06/17 00:00 12/06/17 00:00 12/05/17 16:00 12/06/17 00:00 Intake and Output: 12/06/17 12/06/17 06:59 18:59 Intake Total 450 1720 Output Total 300 Balance 150 1720 - Medications Medications: Current Medications Acetaminophen (Tylenol 325mg Tab) 650 mg PO Q6H PRN PRN Reason: Pain, Mild (1-3) Last Admin: 12/03/17 17:26 Dose: 650 mg Amlodipine Besylate (Norvasc) 5 mg PO DAILY [facility] Last Admin: 12/06/17 09:12 Dose: 5 mg Bupropion HCl (Wellbutrin) 200 mg PO DAILY [facility] Last Admin: 12/02/17 11:18 Dose: 200 mg Clopidogrel Bisulfate (Plavix) 75 mg PO DAILY [facility] Last Admin: 12/06/17 09:12 Dose: 75 mg Famotidine (Pepcid) 20 mg PO BID [facility] Last Admin: 12/06/17 09:12 Dose: 20 mg Aztreonam 1 gm/ Sodium (Chloride) 100 mls @ 100 mls/hr IVPB Q8H [facility] Last Admin: 12/06/17 14:50 Dose: 100 mls/hr Metronidazole (Flagyl) 500 mg in 100 mls @ 100 mls/hr IVPB Q8 [facility] Last Admin: 12/06/17 14:50 Dose: 100 mls/hr Insulin Aspart (Novolog) 0 unit SC ACHS [facility] PRN Reason: Protocol Last Admin: 12/06/17 12:28 Dose: 3 unit Insulin Glargine (Lantus) 30 unit SC [facility] Last Admin: 12/05/17 21:38 Dose: 30 units Lactulose (Enulose) 20 gm PO HS [facility] Last Admin: 12/05/17 21:36 Dose: 20 gm Montelukast Sodium (Singulair) 10 mg PO DAILY [facility] Last Admin: 01/27/18 09:11 Dose: 10 mg Ondansetron HCl (Zofran Inj) 4 mg IVP Q4H PRN PRN Reason: Nausea/Vomiting Last Admin: 12/03/17 08:53 Dose: 4 mg Pantoprazole Sodium (Protonix Ec Tab) 40 mg PO DAILY [facility] Last Admin: 12/06/17 09:12 Dose: 40 mg Rosuvastatin Calcium (Crestor) 5 mg PO HS [facility] Last Admin: 12/05/17 21:35 Dose: 5 mg Topiramate (Topamax) 100 mg PO HS [facility] Last Admin: 12/05/17 21:44 Dose: 100 mg - Labs Labs: 12/04/17 13:50 12/04/17 13:50 PT 11.3 SECONDS (9.7-12.2) 12/03/17 03:01 INR 1.0 12/03/17 03:01 APTT 38 SECONDS (21-34) H 12/03/17 03:01 - Constitutional Appears: No Acute Distress, Chronically Ill - Head Exam Head Exam: NORMAL INSPECTION - Eye Exam Eye Exam: Normal appearance - ENT Exam ENT Exam: Normal Exam - Neck Exam Neck Exam: Normal Inspection - Respiratory Exam Respiratory Exam: Clear to Ausculation Bilateral, NORMAL BREATHING PATTERN - Cardiovascular Exam Cardiovascular Exam: REGULAR RHYTHM, Murmur - GI/Abdominal Exam GI & Abdominal Exam: Soft, Normal Bowel Sounds - Rectal Exam Rectal Exam: Deferred - Extremities Exam Extremities Exam: Normal Inspection - Back Exam Back Exam: NORMAL INSPECTION - Neurological Exam Neurological Exam: Alert, Awake, Oriented x3 - Psychiatric Exam Psychiatric exam: Anxious - Skin Skin Exam: Dry, Intact, Normal Color, Warm Assessment and Plan (1) Dehydration Status: Resolved (2) Acute gastroenteritis Status: Resolved (3) Severe low back pain Assessment & Plan: Awaiting back brace for PT. Status: Acute (4) Insulin dependent diabetes mellitus Status: Chronic (5) Paranoid states (delusional disorders) Status: Chronic (6) Hyponatremia Status: Resolved (7) Fecal impaction in rectum Status: Resolved
[2017-12-06] MEDS: (Lantus) Insulin Glargine, Recombinant SC SCH (21:42)
[2017-12-07] MEDS: metroNIDAZOLE IV 500 mg/100 ml 500 MG/100 ML BAG IVPB SCH ×3 (05:17→22:55)
[2017-12-07] MEDS: Aztreonam 1 GM in Sodium Chloride 0.9% 100 ML IVPB SCH ×3 (06:20→21:43)
[2017-12-07 08:23] LABS: BASO % 0.6 % (0.0-2.0); EOS % 0.1 % (0.0-4.0); HEMOGLOBIN 11.8 g/dL (11.0-16.0); LYMPH # 0.8 K/uL (1.0-4.3); LYMPH % 19.3 % (20.0-40.0); MEAN CELL VOLUME 93.1 fL (81.0-99.0); MEAN CORPUSCULAR HEMOGLOBIN 31.1 pg (27.0-31.0); MEAN CORPUSCULAR HGB CONC 33.4 g/dL (33.0-37.0); MEAN PLATELET VOLUME 9.8 fL (7.2-11.7); MONO # 1.2 K/uL (0.0-0.8); MONO % 28.5 % (0.0-10.0); NEUT # 2.2 K/uL (1.8-7.0); NEUT % 51.5 % (50.0-75.0); NRBC % 0.1 % (0.0-2.0); PLATELET COUNT 182 K/uL (130-400); RED CELL DISTRIBUTION WIDTH 13.5 % (11.5-14.5); WHITE BLOOD COUNT 4.3 K/uL (4.8-10.8)
[2017-12-07] MEDS: (Novolog) Insulin Aspart, Recombinant 100 u/ml 10 ml vial SC SCH ×4 (08:47→21:48)
[2017-12-07 08:53] LABS: ALB/GLOB RATIO 0.9 (1.0-2.1); ALT/SGPT 41 U/L (9-52); AST/SGOT 53 U/L (14-36); BLOOD UREA NITROGEN 10 mg/dL (7-17); CALCIUM 9.1 mg/dl (8.6-10.4); GFR AFRICAN-AMERICAN > 60; GFR NON-AFRICAN AMERICAN > 60
[2017-12-07] MEDS: Pantoprazole 40 mg EC Tab PO SCH (10:25)
[2017-12-07 11:22] LABS: LYMPHOCYTE 20 % (20-40); MONOCYTE 28 % (0-10); NEUTROPHIL 52 % (50-75); PLATELET ESTIMATE NORMAL (NORMAL); TOTAL CELLS COUNTED 100
[2017-12-07 11:23] LABS: ANISOCYTOSIS SLIGHT; LARGE PLATELETS PRESENT; POIKILOCYTOSIS SLIGHT
[2017-12-07 11:24] LABS: MICROCYTOSIS SLIGHT; POLYCHROMIC SLIGHT
[2017-12-07] MEDS ORDERED: Potassium Chloride 20 mEq/15 ml LIQ UD PO STA (16:24)
--- NOTE | 2017-12-07 16:31 | CP.PCM.PN ---
Subjective - Date & Time of Evaluation Date of Evaluation: 12/07/17 Time of Evaluation: 16:28 - Subjective Subjective: Patient is complaining of a lower abdominal pain, has not had a BM for the past 3 days. Serum K+: 3.4. Will try Lactullose again and rerplace K+. Low back is still severe and the patient is still bed bound, awaiting a back brace. Objective - Vital Signs/Intake and Output Vital Signs (last 24 hours): Temp Pulse Resp BP Pulse Ox 97.3 F L 80 20 180/81 H 98 12/07/17 08:46 12/07/17 08:46 12/07/17 08:46 12/07/17 08:46 12/07/17 08:46 Intake and Output: 12/07/17 12/07/17 06:59 18:59 Intake Total 1720 Balance 1720 - Medications Medications: Current Medications Acetaminophen (Tylenol 325mg Tab) 650 mg PO Q6H PRN PRN Reason: Pain, Mild (1-3) Last Admin: 12/03/17 17:26 Dose: 650 mg Amlodipine Besylate (Norvasc) 5 mg PO DAILY [facility] Last Admin: 12/07/17 10:26 Dose: 5 mg Bupropion HCl (Wellbutrin) 200 mg PO DAILY [facility] Last Admin: 12/02/17 11:18 Dose: 200 mg Clopidogrel Bisulfate (Plavix) 75 mg PO DAILY [facility] Last Admin: 12/07/17 10:26 Dose: 75 mg Famotidine (Pepcid) 20 mg PO BID [facility] Last Admin: 12/07/17 10:26 Dose: 20 mg Aztreonam 1 gm/ Sodium (Chloride) 100 mls @ 100 mls/hr IVPB Q8H [facility] Last Admin: 12/07/17 14:10 Dose: 100 mls/hr Metronidazole (Flagyl) 500 mg in 100 mls @ 100 mls/hr IVPB Q8 [facility] Last Admin: 12/07/17 14:10 Dose: 100 mls/hr Insulin Aspart (Novolog) 0 unit SC ACHS [facility] PRN Reason: Protocol Last Admin: 12/07/17 12:25 Dose: 3 unit Insulin Glargine (Lantus) 30 unit SC [facility] Last Admin: 12/06/17 21:42 Dose: 30 units Lactulose (Enulose) 20 gm PO [facility] Last Admin: 12/06/17 21:38 Dose: 20 gm Montelukast Sodium (Singulair) 10 mg PO DAILY [facility] Last Admin: 12/07/17 10:25 Dose: 10 mg Ondansetron HCl (Zofran Inj) 4 mg IVP Q4H PRN PRN Reason: Nausea/Vomiting Last Admin: 12/03/17 08:53 Dose: 4 mg Pantoprazole Sodium (Protonix Ec Tab) 40 mg PO DAILY [facility] Last Admin: 12/07/17 10:25 Dose: 40 mg Rosuvastatin Calcium (Crestor) 5 mg PO [facility] Last Admin: 12/06/17 21:38 Dose: 5 mg Topiramate (Topamax) 100 mg PO [facility] Last Admin: 12/06/17 21:38 Dose: 100 mg - Labs Labs: 12/07/17 08:16 12/07/17 08:16 PT 11.3 SECONDS (9.7-12.2) 12/03/17 03:01 INR 1.0 12/03/17 03:01 APTT 38 SECONDS (21-34) H 12/03/17 03:01 - Constitutional Appears: No Acute Distress, Chronically Ill - Head Exam Head Exam: NORMAL INSPECTION - Eye Exam Eye Exam: Normal appearance - ENT Exam ENT Exam: Normal Exam - Respiratory Exam Respiratory Exam: Clear to Ausculation Bilateral, NORMAL BREATHING PATTERN - Cardiovascular Exam Cardiovascular Exam: REGULAR RHYTHM - GI/Abdominal Exam GI & Abdominal Exam: Soft, Normal Bowel Sounds Additional comments: Mild tenderness of the hypogastric area. No guarding. - Rectal Exam Rectal Exam: Deferred - Exam Exam: NORMAL INSPECTION - Extremities Exam Extremities Exam: Normal Inspection - Back Exam Back Exam: NORMAL INSPECTION - Neurological Exam Neurological Exam: Alert, Awake - Psychiatric Exam Psychiatric exam: Anxious - Skin Skin Exam: Dry, Intact, Normal Color, Warm Assessment and Plan (1) Dehydration Status: Resolved (2) Acute gastroenteritis Status: Resolved (3) Severe low back pain Status: Acute (4) Insulin dependent diabetes mellitus Status: Chronic (5) Paranoid states (delusional disorders) Status: Chronic (6) Hyponatremia Status: Resolved (7) Fecal impaction in rectum Status: Chronic
[2017-12-07] MEDS ORDERED: Potassium Chloride 20 mEq/15 ml LIQ UD PO ONE (20:00)
[2017-12-07] MEDS ORDERED: Potassium Chloride 20 mEq ER Tab PO ONE (21:30)
[2017-12-07] MEDS: (Lantus) Insulin Glargine, Recombinant SC SCH (21:55)
[2017-12-08] MEDS: metroNIDAZOLE IV 500 mg/100 ml 500 MG/100 ML BAG IVPB SCH (05:12)
[2017-12-08] MEDS: Aztreonam 1 GM in Sodium Chloride 0.9% 100 ML IVPB SCH ×2 (06:17→14:05)
[2017-12-08] MEDS: (Novolog) Insulin Aspart, Recombinant 100 u/ml 10 ml vial SC SCH ×4 (07:30→22:23)
[2017-12-08 08:27] VITALS: RESP 20
[2017-12-08] MEDS: Pantoprazole 40 mg EC Tab PO SCH (09:55)
--- NOTE | 2017-12-08 16:32 | CP.PCM.PN ---
Subjective - Date & Time of Evaluation Date of Evaluation: 12/08/17 Time of Evaluation: 16:29 - Subjective Subjective: Patient with less abdominal pain following a BM induced by a soapsud enema. Still waiting for a back brace, and still with severe low back pain. Objective - Vital Signs/Intake and Output Vital Signs (last 24 hours): Temp Pulse Resp BP Pulse Ox 97.5 F L 80 20 174/90 H 98 12/08/17 08:00 12/08/17 08:00 12/08/17 08:00 12/08/17 08:00 12/08/17 08:00 Intake and Output: 12/08/17 12/08/17 06:59 18:59 Intake Total 1650 Balance 1650 - Medications Medications: Current Medications Acetaminophen (Tylenol 325mg Tab) 650 mg PO Q6H PRN PRN Reason: Pain, Mild (1-3) Last Admin: 12/08/17 09:54 Dose: 650 mg Amlodipine Besylate (Norvasc) 5 mg PO DAILY [facility] Last Admin: 12/08/17 09:55 Dose: 5 mg Bupropion HCl (Wellbutrin) 200 mg PO DAILY [facility] Last Admin: 12/02/17 11:18 Dose: 200 mg Clopidogrel Bisulfate (Plavix) 75 mg PO DAILY [facility] Last Admin: 12/08/17 09:55 Dose: 75 mg Famotidine (Pepcid) 20 mg PO BID [facility] Last Admin: 12/08/17 09:55 Dose: 20 mg Aztreonam 1 gm/ Sodium (Chloride) 100 mls @ 100 mls/hr IVPB Q8H [facility] Last Admin: 12/08/17 14:05 Dose: 100 mls/hr Insulin Aspart (Novolog) 0 unit SC ACHS [facility] PRN Reason: Protocol Last Admin: 12/08/17 12:40 Dose: 3 unit Insulin Glargine (Lantus) 30 unit SC HS [facility] Last Admin: 12/07/17 21:55 Dose: 30 units Lactulose (Enulose) 20 gm PO HS [facility] Last Admin: 12/07/17 21:56 Dose: Not Given Montelukast Sodium (Singulair) 10 mg PO DAILY [facility] Last Admin: 12/08/17 09:55 Dose: 10 mg Ondansetron HCl (Zofran Inj) 4 mg IVP Q4H PRN PRN Reason: Nausea/Vomiting Last Admin: 12/03/17 08:53 Dose: 4 mg Pantoprazole Sodium (Protonix Ec Tab) 40 mg PO DAILY [facility] Last Admin: 12/08/17 09:55 Dose: 40 mg Rosuvastatin Calcium (Crestor) 5 mg PO HS [facility] Last Admin: 12/07/17 21:50 Dose: 5 mg Topiramate (Topamax) 100 mg PO HS [facility] Last Admin: 12/07/17 21:50 Dose: 100 mg - Labs Labs: 12/07/17 08:16 12/07/17 08:16 PT 11.3 SECONDS (9.7-12.2) 12/03/17 03:01 INR 1.0 12/03/17 03:01 APTT 38 SECONDS (21-34) H 12/03/17 03:01 - Constitutional Appears: No Acute Distress, Chronically Ill - Head Exam Head Exam: NORMOCEPHALIC - Eye Exam Eye Exam: Normal appearance - ENT Exam ENT Exam: Normal Exam - Neck Exam Neck Exam: Normal Inspection - Respiratory Exam Respiratory Exam: Clear to Ausculation Bilateral, NORMAL BREATHING PATTERN - Cardiovascular Exam Cardiovascular Exam: REGULAR RHYTHM - GI/Abdominal Exam GI & Abdominal Exam: Soft, Normal Bowel Sounds - Rectal Exam Rectal Exam: Deferred - Extremities Exam Extremities Exam: Normal Inspection - Back Exam Additional comments: Very tender low back. - Neurological Exam Neurological Exam: Alert, Awake, Oriented x3 - Psychiatric Exam Psychiatric exam: Anxious - Skin Skin Exam: Dry, Intact, Normal Color, Warm Assessment and Plan (1) Dehydration Status: Resolved (2) Acute gastroenteritis Status: Resolved (3) Severe low back pain Status: Acute (4) Insulin dependent diabetes mellitus Status: Chronic (5) Paranoid states (delusional disorders) Status: Chronic (6) Hyponatremia Status: Resolved (7) Fecal impaction in rectum Status: Chronic
[2017-12-08] MEDS ORDERED: Potassium Chloride 20 mEq ER Tab PO ONE (20:30)
--- NOTE | 2017-12-08 21:54 | CP.PCM.CON ---
History of Present Illness - History of Present Illness History of Present Illness: 67 year old female seen at bedside for painful toenails. Patient states that she sees Dr. Gao regularly for nail care. Is AAO x 3 and NAD at time of visit. Denies any further pedal complaints at this time. Denies N/V/F/C/CP/SOB/D /posterior calf pain Review of Systems - Review of Systems Review of Systems: ROS as per HPI Past Patient History - Infectious Disease Hx of Infectious Diseases: None - Tetanus Immunizations Tetanus Immunization: Unknown - Past Medical History & Family History Past Medical History?: Yes Past Family History: Reviewed and not pertinent - Past Social History Smoking Status: Never Smoked - CARDIAC Hx Hypercholesterolemia: Yes Hx Hypertension: Yes - PULMONARY Hx Asthma: Yes - NEUROLOGICAL HX Cerebrovascular Accident: Yes ( (blood clot left side of brain resolved as per pt.)) - HEENT Hx HEENT Problems: Yes Other/Comment: wear eyeglasses - RENAL Hx Chronic Kidney Disease: No - ENDOCRINE/METABOLIC Hx Diabetes Mellitus Type 1: Yes - HEMATOLOGICAL/ONCOLOGICAL Hx Blood Disorders: No - INTEGUMENTARY Hx Dermatological Problems: Yes Other/Comment: Hx skin rash - MUSCULOSKELETAL/RHEUMATOLOGICAL Hx Arthritis: Yes - GASTROINTESTINAL Hx Gastrointestinal Disorders: No - GENITOURINARY/GYNECOLOGICAL Hx Genitourinary Disorders: Yes Hx Hematuria: Yes Hx Incontinence: Yes Hx Urinary Tract Infection: Yes - PSYCHIATRIC Hx Anxiety: Yes Hx Bipolar Disorder: Yes Hx Depression: Yes Hx Paranoia: Yes Hx Substance Use: No - SURGICAL HISTORY Hx Appendectomy: Yes Hx Coronary Stent: Yes (PCI of the LAD with stent insertion ( [facility]) in 2007 in [place].) - ANESTHESIA Hx Anesthesia: Yes Hx Anesthesia Reactions: No Hx Malignant Hyperthermia: No Has any member of the family had a problem w/ anesthesia?: No Meds Allergies/Adverse Reactions: Allergies Allergy/AdvReac Type Severity Reaction Status Date / Time Penicillins Allergy RASH Verified 11/23/17 12:08 - Medications Medications: Current Medications Acetaminophen (Tylenol 325mg Tab) 650 mg PO Q6H PRN PRN Reason: Pain, Mild (1-3) Last Admin: 12/08/17 09:54 Dose: 650 mg Amlodipine Besylate (Norvasc) 5 mg PO DAILY [facility] Last Admin: 12/08/17 09:55 Dose: 5 mg Bupropion HCl (Wellbutrin) 200 mg PO DAILY [facility] Last Admin: 12/02/17 11:18 Dose: 200 mg Clopidogrel Bisulfate (Plavix) 75 mg PO DAILY [facility] Last Admin: 12/08/17 09:55 Dose: 75 mg Famotidine (Pepcid) 20 mg PO BID [facility] Last Admin: 12/08/17 17:43 Dose: Not Given Insulin Aspart (Novolog) 0 unit SC [facility] PRN Reason: Protocol Last Admin: 12/08/17 17:44 Dose: 3 unit Insulin Glargine (Lantus) 30 unit SC [facility] Last Admin: 12/07/17 21:55 Dose: 30 units Lactulose (Enulose) 20 gm PO [facility] Last Admin: 12/07/17 21:56 Dose: Not Given Montelukast Sodium (Singulair) 10 mg PO DAILY [facility] Last Admin: 12/08/17 09:55 Dose: 10 mg Ondansetron HCl (Zofran Inj) 4 mg IVP Q4H PRN PRN Reason: Nausea/Vomiting Last Admin: 12/03/17 08:53 Dose: 4 mg Pantoprazole Sodium (Protonix Ec Tab) 40 mg PO DAILY [facility] Last Admin: 12/08/17 09:55 Dose: 40 mg Rosuvastatin Calcium (Crestor) 5 mg PO [facility] Last Admin: 12/07/17 21:50 Dose: 5 mg Topiramate (Topamax) 100 mg PO [facility] Last Admin: 12/07/17 21:50 Dose: 100 mg Physical Exam - Constitutional Appears: Well, Non-toxic, No Acute Distress - Extremities Exam Additional comments: Vasc: DP/PT pulses fully palpable 2/4 b/l. Skin temperature warm to warm from proximal to distal. CFT < 3 seconds to all digits b/l. No edema noted b/l Neuro: Epicritic and protective sensation grossly intact b/l Derm: No open lesions, wound, maceration, abnormal pigmentation or abnormal growths noted. Nails 1-5 b/l noted to be dystrophic, thickened and elongated. Diffuse xerosis noted b/l. No clinical signs of infection noted to either foot MSK: No POP noted b/l - Neurological Exam Neurological exam: Alert, Oriented x3 - Psychiatric Exam Psychiatric exam: Normal Affect, Normal Mood Results - Vital Signs Recent Vital Signs: Last Vital Signs Temp 98.2 F 12/08/17 16:00 Pulse 90 12/08/17 16:00 Resp 20 12/08/17 16:00 BP 169/86 H 12/08/17 16:00 Pulse Ox 98 12/08/17 16:00 - Labs Result Diagrams: 12/07/17 08:16 12/07/17 08:16 Labs: Laboratory Results - last 24 hr 12/08/17 12/08/17 12/08/17 07:13 11:23 16:32 POC Glucose (mg/dL) 166 H 219 H 228 H Assessment & Plan - Assessment and Plan (Free Text) Assessment: 67 year old female seen at bedside for painful, thickened, elongated toenails Plan: Patient seen and evaluated at bedside Plan discussed with attending Dr. Gao Podiatry will return tomorrow with nail nippers to debride elongated nails - Date & Time Date: 12/08/17 Time: 21:57
[2017-12-08] MEDS: (Lantus) Insulin Glargine, Recombinant SC SCH (22:23)
[2017-12-09] MEDS: (Novolog) Insulin Aspart, Recombinant 100 u/ml 10 ml vial SC SCH ×4 (07:52→21:45)
[2017-12-09] MEDS: Pantoprazole 40 mg EC Tab PO SCH (09:57)
--- NOTE | 2017-12-09 16:34 | RAD ---
PROCEDURE: Radiographs of the Lumbar Spine. HISTORY: fx lLS SPINE COMPARISON: MR lumbar spine 11/27/2017 FINDINGS: BONES: Minimal stepladder like malalignment noted are facet arthrosis - inferred ligamentous laxity. Concomitant pars attenuations not excluded. Generalized osteopenia. The mild compression deformity of L3 vertebral body compatible with vertebral body compression fracture of approximately 25 percent loss of vertebral body height noted. No prominent diffuse edema suggested on the after mentioned MR exam. The MR exam suggest better the posterior mild convexity bulging of the vertebral body margin towards the spinal canal. DISC SPACES: Marked L4-5 and L5-S1 disc space narrowing OTHER FINDINGS: Thoraco lumbar spondylosis and prominent Schmorl's node like indentations and probable degenerative type anterior wedging IMPRESSION: L3 mild compression deformity noted and referenced on the MRI report. Other findings as above
--- NOTE | 2017-12-09 17:26 | CP.PCM.PN ---
Subjective - Date & Time of Evaluation Date of Evaluation: 12/09/17 Time of Evaluation: 17:23 - Subjective Subjective: Patient still with low back pain. Has a back brace today. Will add Losartan 50 mg PO qd for an elevated BP. For discharge to subacute rehab when bed is ready. Objective - Vital Signs/Intake and Output Vital Signs (last 24 hours): Temp Pulse Resp BP Pulse Ox 98.7 F 76 20 166/79 H 98 12/09/17 08:00 12/09/17 14:56 12/09/17 08:00 12/09/17 14:56 12/09/17 14:56 Intake and Output: 12/09/17 12/09/17 06:59 18:59 Intake Total 450 500 Balance 450 500 - Medications Medications: Current Medications Acetaminophen (Tylenol 325mg Tab) 650 mg PO Q6H PRN PRN Reason: Pain, Mild (1-3) Last Admin: 12/09/17 03:09 Dose: 650 mg Amlodipine Besylate (Norvasc) 5 mg PO DAILY [facility] Last Admin: 12/09/17 09:57 Dose: 5 mg Bupropion HCl (Wellbutrin) 200 mg PO DAILY [facility] Last Admin: 12/02/17 11:18 Dose: 200 mg Clopidogrel Bisulfate (Plavix) 75 mg PO DAILY [facility] Last Admin: 12/09/17 09:57 Dose: 75 mg Famotidine (Pepcid) 20 mg PO BID [facility] Last Admin: 12/09/17 09:57 Dose: 20 mg Insulin Aspart (Novolog) 0 unit SC [facility] PRN Reason: Protocol Last Admin: 12/09/17 17:13 Dose: 3 unit Insulin Glargine (Lantus) 30 unit SC [facility] Last Admin: 12/08/17 22:23 Dose: 30 units Lactulose (Enulose) 20 gm PO [facility] Last Admin: 12/08/17 22:22 Dose: Not Given Losartan Potassium (Cozaar) 50 mg PO DAILY [facility] Montelukast Sodium (Singulair) 10 mg PO DAILY [facility] Last Admin: 12/09/17 09:57 Dose: 10 mg Ondansetron HCl (Zofran Inj) 4 mg IVP Q4H PRN PRN Reason: Nausea/Vomiting Last Admin: 12/03/17 08:53 Dose: 4 mg Pantoprazole Sodium (Protonix Ec Tab) 40 mg PO DAILY [facility] Last Admin: 12/09/17 09:57 Dose: 40 mg Rosuvastatin Calcium (Crestor) 5 mg PO [facility] Last Admin: 12/08/17 22:22 Dose: 5 mg Topiramate (Topamax) 100 mg PO HS [facility] Last Admin: 12/08/17 22:22 Dose: 100 mg - Labs Labs: 12/07/17 08:16 12/07/17 08:16 PT 11.3 SECONDS (9.7-12.2) 12/03/17 03:01 INR 1.0 12/03/17 03:01 APTT 38 SECONDS (21-34) H 12/03/17 03:01 - Constitutional Appears: No Acute Distress, Chronically Ill - Head Exam Head Exam: NORMAL INSPECTION - Eye Exam Eye Exam: Normal appearance - ENT Exam ENT Exam: Normal Exam - Neck Exam Neck Exam: Normal Inspection - Respiratory Exam Respiratory Exam: Clear to Ausculation Bilateral, NORMAL BREATHING PATTERN - Cardiovascular Exam Cardiovascular Exam: REGULAR RHYTHM, Murmur - GI/Abdominal Exam GI & Abdominal Exam: Soft, Normal Bowel Sounds - Rectal Exam Rectal Exam: Deferred - Extremities Exam Extremities Exam: Normal Inspection - Back Exam Additional comments: Tender low back. - Neurological Exam Neurological Exam: Alert, Awake, Oriented x3 - Psychiatric Exam Psychiatric exam: Anxious - Skin Skin Exam: Dry, Intact, Normal Color, Warm Assessment and Plan (1) Dehydration Status: Resolved (2) Acute gastroenteritis Status: Resolved (3) Severe low back pain Assessment & Plan: Secondary to a subacute compression fracture of L3 from falls. To continue PT and for subacute rehab. Status: Acute (4) Insulin dependent diabetes mellitus Status: Chronic (5) Paranoid states (delusional disorders) Status: Chronic (6) Hyponatremia Status: Resolved (7) Fecal impaction in rectum Status: Chronic
[2017-12-09] MEDS: (Lantus) Insulin Glargine, Recombinant SC SCH (21:44)
[2017-12-10] MEDS: (Novolog) Insulin Aspart, Recombinant 100 u/ml 10 ml vial SC SCH ×3 (08:30→17:13)
[2017-12-10] MEDS: Pantoprazole 40 mg EC Tab PO SCH (09:00)
[2017-12-10 16:49] VITALS: BP 173/83; PULSE 73; TEMP 98.2; O2SAT 98
--- NOTE | 2017-12-10 18:23 | CP.PCM.PN ---
Subjective - Date & Time of Evaluation Date of Evaluation: 12/10/17 Time of Evaluation: 18:20 - Subjective Subjective: Patient with a low back pain. Received one extra dose of Losartan 50 mg PO qd, and Losartan is increased to 100 mg PO qd. For transfer to sub acute rehab today. Objective - Vital Signs/Intake and Output Vital Signs (last 24 hours): Temp Pulse Resp BP Pulse Ox 98.2 F 73 20 173/83 H 98 12/10/17 16:00 12/10/17 16:00 12/10/17 16:00 12/10/17 16:00 12/10/17 16:00 Intake and Output: 12/10/17 12/10/17 06:59 18:59 Intake Total 450 Balance 450 - Medications Medications: Current Medications Acetaminophen (Tylenol 325mg Tab) 650 mg PO Q6H PRN PRN Reason: Pain, Mild (1-3) Last Admin: 12/10/17 14:28 Dose: 650 mg Amlodipine Besylate (Norvasc) 10 mg PO DAILY [facility] Last Admin: 12/10/17 13:08 Dose: 10 mg Bupropion HCl (Wellbutrin) 200 mg PO DAILY [facility] Last Admin: 12/02/17 11:18 Dose: 200 mg Clopidogrel Bisulfate (Plavix) 75 mg PO DAILY [facility] Last Admin: 12/10/17 09:00 Dose: 75 mg Famotidine (Pepcid) 20 mg PO BID [facility] Last Admin: 12/10/17 17:13 Dose: Not Given Insulin Aspart (Novolog) 0 unit SC ACHS [facility] PRN Reason: Protocol Last Admin: 12/10/17 17:13 Dose: 4 unit Insulin Glargine (Lantus) 30 unit SC HS [facility] Last Admin: 12/09/17 21:44 Dose: 30 units Lactulose (Enulose) 20 gm PO HS [facility] Last Admin: 12/09/17 21:44 Dose: 20 gm Losartan Potassium (Cozaar) 100 mg PO DAILY [facility] Montelukast Sodium (Singulair) 10 mg PO DAILY [facility] Last Admin: 12/10/17 09:00 Dose: 10 mg Ondansetron HCl (Zofran Inj) 4 mg IVP Q4H PRN PRN Reason: Nausea/Vomiting Last Admin: 12/03/17 08:53 Dose: 4 mg Pantoprazole Sodium (Protonix Ec Tab) 40 mg PO DAILY [facility] Last Admin: 12/10/17 09:00 Dose: 40 mg Rosuvastatin Calcium (Crestor) 5 mg PO HS [facility] Last Admin: 12/09/17 21:44 Dose: 5 mg Topiramate (Topamax) 100 mg PO HS [facility] Last Admin: 12/09/17 21:46 Dose: 100 mg - Labs Labs: 12/07/17 08:16 12/07/17 08:16 PT 11.3 SECONDS (9.7-12.2) 12/03/17 03:01 INR 1.0 12/03/17 03:01 APTT 38 SECONDS (21-34) H 12/03/17 03:01 - Constitutional Appears: No Acute Distress, Chronically Ill - Head Exam Head Exam: NORMOCEPHALIC - Eye Exam Eye Exam: Normal appearance - ENT Exam ENT Exam: Normal Exam - Neck Exam Neck Exam: Normal Inspection - Respiratory Exam Respiratory Exam: Clear to Ausculation Bilateral, NORMAL BREATHING PATTERN - Cardiovascular Exam Cardiovascular Exam: REGULAR RHYTHM, Murmur - GI/Abdominal Exam GI & Abdominal Exam: Soft, Normal Bowel Sounds - Rectal Exam Rectal Exam: Deferred - Extremities Exam Extremities Exam: Normal Inspection - Back Exam Additional comments: Tender low back. - Neurological Exam Neurological Exam: Alert, Awake, Oriented x3 - Skin Skin Exam: Dry, Intact, Normal Color Assessment and Plan (1) Dehydration Status: Resolved (2) Acute gastroenteritis Status: Resolved (3) Severe low back pain Assessment & Plan: From L3, subacute compression fracture. Status: Acute (4) Insulin dependent diabetes mellitus Status: Chronic (5) Paranoid states (delusional disorders) Status: Chronic (6) Hyponatremia Status: Resolved (7) Fecal impaction in rectum Status: Chronic
--- NOTE | 2017-12-17 15:51 | CP.PCM.DIS ---
Provider - Provider Date of Admission: 11/23/17 14:47 Attending physician: Cornell Lynn MD Primary care physician: Cornell Lynn M.D. Consults: Dr Appiah, Dr Ady Lora, Dr Roney Jr, Dr Jad Gao. Time Spent in preparation of Discharge (in minutes): 45 Diagnosis - Discharge Diagnosis (1) Dehydration Status: Resolved (2) Acute gastroenteritis Status: Resolved (3) Severe low back pain Status: Acute (4) Insulin dependent diabetes mellitus Status: Chronic Priority: Low (5) Paranoid states (delusional disorders) Status: Chronic (6) Hyponatremia Status: Resolved (7) Fecal impaction in rectum Status: Chronic Hospital Course - Lab Results Lab Results: Micro Results 11/23/17 12:54 Blood Blood Culture - Final NO GROWTH AFTER 5 DAYS 11/23/17 12:54 Blood Gram Stain - Final TEST NOT PERFORMED 11/23/17 13:20 Blood Blood Culture - Final NO GROWTH AFTER 5 DAYS 11/23/17 13:20 Blood Gram Stain - Final TEST NOT PERFORMED 11/24/17 18:00 Stool Stool Culture - Final NO SALMONELLA, SHIGELLA OR CAMPYLOBACTER ISOLATED. 11/23/17 14:11 Urine Urine Culture - Final No Growth (<1,000 CFU/ML) Most Recent Lab Values WBC 4.3 K/uL (4.8-10.8) L D 12/07/17 08:16 RBC 3.80 Mil/uL (3.80-5.20) 12/07/17 08:16 Hgb 11.8 g/dL (11.0-16.0) 12/07/17 08:16 Hct 35.4 % (34.0-47.0) 12/07/17 08:16 MCV 93.1 fL (81.0-99.0) 12/07/17 08:16 MCH 31.1 pg (27.0-31.0) H 12/07/17 08:16 MCHC 33.4 g/dL (33.0-37.0) 12/07/17 08:16 RDW 13.5 % (11.5-14.5) 12/07/17 08:16 Plt Count 182 K/uL (130-400) 12/07/17 08:16 MPV 9.8 fL (7.2-11.7) 12/07/17 08:16 Neut % (Auto) 51.5 % (50.0-75.0) 12/07/17 08:16 Lymph % (Auto) 19.3 % (20.0-40.0) L 12/07/17 08:16 Ramsey % (Auto) 28.5 % (0.0-10.0) H 12/07/17 08:16 Eos % (Auto) 0.1 % (0.0-4.0) 12/07/17 08:16 Baso % (Auto) 0.6 % (0.0-2.0) 12/07/17 08:16 Neut # 2.2 K/uL (1.8-7.0) 12/07/17 08:16 Lymph # 0.8 K/uL (1.0-4.3) L 12/07/17 08:16 Ramsey # 1.2 K/uL (0.0-0.8) H 12/07/17 08:16 Eos # 0.0 K/uL (0.0-0.7) 12/07/17 08:16 Baso # 0.0 K/uL (0.0-0.2) 12/07/17 08:16 Neutrophils % (Manual) 52 % (50-75) 12/07/17 08:16 Band Neutrophils % 1 % (0-2) 12/04/17 13:50 Lymphocytes % (Manual) 20 % (20-40) 12/07/17 08:16 Monocytes % (Manual) 28 % (0-10) H 12/07/17 08:16 Platelet Estimate Normal (NORMAL) 12/07/17 08:16 Large Platelets Present 12/07/17 08:16 RBC Morphology Normal 11/29/17 08:06 Polychromasia Slight 12/07/17 08:16 Poikilocytosis (manual Slight 12/07/17 08:16 Basophilic Stippling Slight 12/07/17 08:16 Anisocytosis (manual) Slight 12/07/17 08:16 Microcytosis (manual) Slight 12/07/17 08:16 PT 11.3 SECONDS (9.7-12.2) 12/03/17 03:01 INR 1.0 12/03/17 03:01 APTT 38 SECONDS (21-34) H 12/03/17 03:01 pO2 184 mm/Hg (30-55) H 12/03/17 02:50 VBG pH 7.36 (7.32-7.43) 12/03/17 02:50 VBG pCO2 9 mmHg (40-60) L* 12/03/17 02:50 VBG HCO3 11.9 mmol/L 12/03/17 02:50 VBG Total CO2 5.4 mmol/L (22-28) L 12/03/17 02:50 VBG O2 Sat (Calc) 100.6 % (40-65) H 12/03/17 02:50 VBG Base Excess -16.8 mmol/L (0.0-2.0) L 12/03/17 02:50 VBG Potassium 0.6 mmol/L (3.6-5.2) L* 12/03/17 02:50 Sodium 151.0 mmol/l (132-148) H 12/03/17 02:50 Chloride 133.0 mmol/L (98-107) H 12/03/17 02:50 Glucose 96 mg/dl (65-105) 12/03/17 02:50 Lactate 0.5 mmol/L (0.7-2.1) L 12/03/17 02:50 Blood Gas Comments Rn informed 12/03/17 02:50 Crit Value Called To Michelle connell rn 12/03/17 02:50 Crit Value Called By Stephan diaz 12/03/17 02:50 Crit Value Read Back Y 12/03/17 02:50 Blood Gas Notified Time 259 12/03/17 02:50 Sodium 136 mmol/L (132-148) 12/07/17 08:16 Potassium 3.4 mmol/L (3.6-5.2) L 12/07/17 08:16 Chloride 110 mmol/L (98-107) H 12/07/17 08:16 Carbon Dioxide 19 mmol/L (22-30) L 12/07/17 08:16 Anion Gap 12 (10-20) 12/07/17 08:16 BUN 10 mg/dL (7-17) 12/07/17 08:16 Creatinine 0.6 mg/dL (0.7-1.2) L 12/07/17 08:16 Est GFR ( Amer) > 60 12/07/17 08:16 Est GFR (Non-Af Amer) > 60 12/07/17 08:16 Random Glucose 152 mg/dL (65-105) H 12/07/17 08:16 POC Glucose (mg/dL) 274 mg/dL (65-110) H 12/10/17 15:58 Calcium 9.1 mg/dl (8.6-10.4) 12/07/17 08:16 Magnesium 1.7 mg/dL (1.6-2.3) 11/23/17 12:51 Total Bilirubin 0.5 mg/dL (0.2-1.3) 12/07/17 08:16 AST 53 U/L (14-36) H D 12/07/17 08:16 ALT 41 U/L (9-52) 12/07/17 08:16 Alkaline Phosphatase 182 U/L (38-126) H D 12/07/17 08:16 Total Protein 6.3 g/dL (6.3-8.3) 12/07/17 08:16 Albumin 3.0 g/dL (3.5-5.0) L D 12/07/17 08:16 Globulin 3.4 gm/dL (2.2-3.9) 12/07/17 08:16 Albumin/Globulin Ratio 0.9 (1.0-2.1) L 12/07/17 08:16 Venous Blood Potassium 0.6 mmol/L (3.6-5.2) L* 12/03/17 02:50 Urine Color Yellow (YELLOW) 11/23/17 14:17 Urine Clarity Clear (Clear) 11/23/17 14:17 Urine pH 5.0 (5.0-8.0) 11/23/17 14:17 Ur Specific Burt 1.025 (1.003-1.030) 11/23/17 14:17 Urine Protein 2+ mg/dL (NEGATIVE) H 11/23/17 14:17 Urine Glucose (UA) 3+ mg/dL (Normal) H 11/23/17 14:17 Urine Ketones 1+ mg/dL (NEGATIVE) H 11/23/17 14:17 Urine Blood Negative (NEGATIVE) 11/23/17 14:17 Urine Nitrate Negative (NEGATIVE) 11/23/17 14:17 Urine Bilirubin Negative (NEGATIVE) 11/23/17 14:17 Urine Urobilinogen Normal mg/dL (0.2-1.0) 11/23/17 14:17 Ur Leukocyte Esterase Neg Rosio/uL (Negative) 11/23/17 14:17 Urine WBC (Auto) 2 /hpf (0-5) 11/23/17 14:17 Urine RBC (Auto) 2 /hpf (0-3) 11/23/17 14:17 Ur Squamous Epith Cells 1 /hpf (0-5) 11/23/17 14:17 Stool Leukocytes, Qual Negative (NEGATIVE) 11/23/17 19:00 C. difficile Ag & Toxin Negative (NEGATIVE) 11/24/17 19:00 - Hospital Course Hospital Course: 67 years old Female was transferred from a subacute rehabilitation center to the ED at [facility] because of abdominal pain, diarrhea, vomiting and severe low back pain radiating to both hips preventing her from walking. She was recently hospitalized for frequent falls at home. A CT scan of the abdomen and pelvis did not reveal any acute pathology. Her serum Na+ was low. She is known to have a NIDDM, a hypertension, a gout, an osteoarthritis of the knees, and generalized osteoporosis, a S/P CVA many years ago, a s/p PCI, a hypercholesterolemia, an obesity, a schizophrenia. She was hospitalized for an acute gastroenteritis, a dehydration and a low back pain. Next morming an XRay of the lumbo-sacral spines revealed an subacute compression fracture of the lumbar spine L3. She denies any leg weakness, numbness or pain. She was evaluated by an Orthopedist first( Dr. Appiah) who referred her to a Neuro-surgeon ( Dr Ady Lora), who ordered a back brace before starting physical therapy. On 12/03/2017, she developed abdominal pain and nausea, vomiting. CT scan of the abdomen reveals fecal impaction. She was evaluated by a surgeon, Dr Sim. She underwent manual disimpaction the same day with addition soap enema. Next morning she was able to move 2 large BM , with resolution of he abdominal pain. She experienced another episode of abdominal pain, constipation, which was relieved by saop enema, Lactulase and Miralax. She was also seen by Dr Jad Gao for ingrown toenails. She finally received her back brace and was transferred to a subacute rehabilitation center on 12/10/2017. - Date & Time of H&P Date of H&P: 11/24/17 Discharge Exam - Head Exam Head Exam: NORMOCEPHALIC - Eye Exam Eye Exam: Normal appearance Pupil Exam: NORMAL ACCOMODATION - ENT Exam ENT Exam: Normal Exam - Neck Exam Neck exam: Normal Inspection - Respiratory Exam Respiratory Exam: Clear to PA & Lateral, NORMAL BREATHING PATTERN, UNREMARKABLE - Cardiovascular Exam Cardiovascular Exam: REGULAR RHYTHM - GI/Abdominal Exam GI & Abdominal Exam: Normal Bowel Sounds, Soft - Rectal Exam Rectal Exam: Deferred - Extremities Exam Extremities exam: normal inspection - Back Exam Back exam: muscle spasm, tenderness, vertebral tenderness Additional comments: Very tender low back with muscular spasm. - Neurological Exam Neurological exam: Alert, CN II-XII Intact, Oriented x3, Reflexes Normal - Psychiatric Exam Psychiatric exam: Anxious - Skin Skin Exam: Dry, Intact, Normal Color, Warm Discharge Plan - Follow Up Plan Condition: STABLE Disposition: REHAB FACILITY/REHAB UNIT Instructions: Dehydration (DC), Diabetic Foot Care (DC), Basic Carbohydrate Counting (DC), Meal Planning with Diabetes Exchanges (DC), Acute Nausea and Vomiting (DC) Referrals: Cornell Lynn MD [Staff Provider] -
== END 2017-12-10 20:21 | DRG 543 ==
LOC: C.ER 12:06 → C.9E 14:47 → OBSVTOIN 14:47 → C.3T 15:36
PROVIDERS: ADMIT Internal Medicine Cardiovascular Disease; ATTEND Internal Medicine Cardiovascular Disease
DX: M48.56XA Collapsed vertebra, not elsewhere classified, lumbar region, initial encounter for fracture (principal); I69.354 Hemiplegia and hemiparesis following cerebral infarction affecting left non-dominant side; E11.40 Type 2 diabetes mellitus with diabetic neuropathy, unspecified; E87.1 Hypo-osmolality and hyponatremia; E86.0 Dehydration; K52.9 Noninfective gastroenteritis and colitis, unspecified; M47.816 Spondylosis without myelopathy or radiculopathy, lumbar region; M43.16 Spondylolisthesis, lumbar region; M17.0 Bilateral primary osteoarthritis of knee; K56.41 Fecal impaction; Z79.4 Long term (current) use of insulin; E78.00 Pure hypercholesterolemia, unspecified; F20.9 Schizophrenia, unspecified; F22 Delusional disorders; F31.9 Bipolar disorder, unspecified; F41.9 Anxiety disorder, unspecified; I10 Essential (primary) hypertension; I25.10 Atherosclerotic heart disease of native coronary artery without angina pectoris; M48.061 Spinal stenosis, lumbar region without neurogenic claudication; M81.0 Age-related osteoporosis without current pathological fracture; R29.6 Repeated falls; W06.XXXA Fall from bed, initial encounter; Z79.899 Other long term (current) drug therapy; Z87.440 Personal history of urinary (tract) infections; Z87.891 Personal history of nicotine dependence; Z95.5 Presence of coronary angioplasty implant and graft; R00.0 Tachycardia, unspecified; L60.0 Ingrowing nail

== ENCOUNTER 2018-01-28 20:50 | Emergency (ER) | payer MEDICARE ==
[2018-01-28 20:50] VITALS: BMI 33.0
[2018-01-28] MEDS ORDERED: Sodium Chloride 0.9% 1,000 ML IV ONE (22:04)
--- NOTE | 2018-01-28 22:10 | C.PDOC ---
History Of Present Illness 67 year old female presents to the ED c/o vertigo, epigastric pain for one week. Patient states she feels dizzy with movement of her head. Patient denies visual changes, head injury, nausea, vomit, diarrhea, weakness, numbness. Time Seen by Provider: 01/28/18 22:09 Chief Complaint (Nursing): Dizziness/Lightheaded History Per: Patient History/Exam Limitations: no limitations Onset/Duration Of Symptoms: Days Current Symptoms Are (Timing): Gone Associated Symptoms Preceding Syncopal Episode: Vertigo, Vertigo Worse With Change In Head Position Seizure Or Post-ictal Symptoms: None Fall Associated With With Symptoms: No Severity: None Recent travel outside of the [place]: No Additional History Per: Patient Past Medical History Reviewed: Historical Data, Nursing Documentation, Vital Signs Vital Signs: Last Vital Signs Temp 97.4 F L 01/28/18 20:58 Pulse 67 01/28/18 20:58 Resp 16 01/28/18 20:58 BP 120/45 L 01/28/18 20:58 Pulse Ox 98 01/29/18 00:52 - Medical History PMH: Anxiety, Arthritis, Asthma, Bipolar Disorder, Depression, Diabetes, HTN, Hypercholesterolemia, Osteoporosis, Paranoia Denies: Chronic Kidney Disease Surgical History: Appendectomy, Coronary Stent (PCI of the LAD with stent insertion ( [facility]) in 2007 in [place].) - [facility] Procedures EXCIS DEBRIDE OF WOUND, INFECT, OR BURN (02/06/15) INTRODUCTION OF SERUM/TOX/VACCINE INTO MUSCLE, PERC APPROACH (07/01/17) VACCINATION NEC (02/06/15) Family History: States: Unknown Family Hx - Social History Hx Tobacco Use: No Hx Alcohol Use: No Hx Substance Use: No - Immunization History Hx Tetanus Toxoid Vaccination: Yes Hx Influenza Vaccination: Yes Hx Pneumococcal Vaccination: Yes Review Of Systems Constitutional: Negative for: Fever, Chills Eyes: Negative for: Vision Change Cardiovascular: Negative for: Chest Pain Respiratory: Negative for: Cough, Shortness of Breath Gastrointestinal: Negative for: Nausea, Vomiting, Abdominal Pain Skin: Negative for: Rash Neurological: Positive for: Dizziness. Negative for: Weakness, Numbness Physical Exam - Physical Exam Appears: Non-toxic, No Acute Distress Skin: Normal Color, Warm, Dry Head: Atraumatic, Normacephalic Eye(s): bilateral: Other (nystagmus) Ear(s): Bilateral: Normal Nose: No Discharge Oral Mucosa: Moist Throat: Normal, No Erythema, No Exudate Neck: Normal ROM, Supple Chest: Symmetrical Cardiovascular: Rhythm Regular, No Murmur Respiratory: Normal Breath Sounds, No Rales, No Rhonchi, No Wheezing Gastrointestinal/Abdominal: Soft, Tenderness (epigastric), No Guarding, No Rebound Extremity: Normal ROM, No Tenderness, No Swelling Neurological/Psych: Oriented x3, Normal Speech, Normal Motor, Normal Sensation Gait: Steady ED Course And Treatment - Laboratory Results Result Diagrams: 01/28/18 22:09 01/28/18 22:09 O2 Sat by Pulse Oximetry: 98 (On RA) Pulse Ox Interpretation: Normal - CT Scan/US CT head Other Rad Studies (CT/US): Read By Radiologist, Radiology Report Reviewed CT/US Interpretation: EXAM: CT Head Without Intravenous Contrast. EXAM DATE/ TIME: 01/28/2018 11:26 PM. CLINICAL HISTORY: 67 years old, female; Pain; Headache and other: Dizziness; Patient HX: 1-7-18 images sent;. Additional info : R/O bleed bed 14. TECHNIQUE: Axial computed tomography images of the head/ brain without intravenous contrast. All CT scans at. this facility use one or more dose reduction techniques, viz.: automated exposure control; ma/kV. adjustment per patient size (including targeted exams where dose is matched to indication; i.e. head);. or iterative reconstruction technique. COMPARISON: CT - HEAD W/O CONTRAST 2017-11-16 15:22. FINDINGS: There are stable areas of low attenuation in the left frontal lobe, left thalamus, right basal ganglia. consistent with old infarcts. There is stable mild atrophy and chronic small vessel ischemic disease. No intracranial hemorrhageNo acute edema. No significant fluid in the sinuses. IMPRESSION: No acute findings. Thank you for allowing us to participate in the care of your patient. Dictated and Authenticated by: Ciera Hammond MD. 01/29/2018 12:43 AM Eastern Time ([place] & [place]) Medical Decision Making Medical Decision Making: Impression: vertigo, abdominal pain Plan: * Labs * Antivert 25 mg PO * Ativan 0.25 mg IVP * Carafate 1 gm PO * Pepcid 20 mg IVP * IV fluids * UA Disposition Counseled Patient/Family Regarding: Diagnosis - Disposition Referrals: [facility] [Outside] Disposition: HOME/ ROUTINE Disposition Time: 00:49 Condition: STABLE Prescriptions: Famotidine [Pepcid] 20 mg PO BID #30 tab Meclizine [Meclizine*] 25 mg PO Q6 #30 tab Instructions: Vertigo (a Type of Dizziness), Gastritis (DC), Ulcer and Gastritis Diet Forms: [facility] (Estonian) - POA Present On Arrival: None - Clinical Impression Clinical Impression: Dizziness, Vertigo, Gastritis - Scribe Statement The provider has reviewed the documentation as recorded by the Scribe Will Dhillon All medical record entries made by the Scribe were at my direction and personally dictated by me. I have reviewed the chart and agree that the record accurately reflects my personal performance of the history, physical exam, medical decision making, and the department course for this patient. I have also personally directed, reviewed, and agree with the discharge instructions and disposition.
[2018-01-28] MEDS ORDERED: Sodium Chloride 0.9% 1,000 ML ONE (22:13)
[2018-01-28 22:14] LABS: BASO % 0.5 % (0.0-2.0); EOS % 0.1 % (0.0-4.0); MEAN CORPUSCULAR HGB CONC 33.4 g/dL (33.0-37.0); MEAN PLATELET VOLUME 9.7 fL (7.2-11.7); MONO # 0.8 K/uL (0.0-0.8); MONO % 16.3 % (0.0-10.0); NEUT % 62.1 % (50.0-75.0); RBC 3.75 Mil/uL (3.80-5.20); RED CELL DISTRIBUTION WIDTH 15.3 % (11.5-14.5); WHITE BLOOD COUNT 4.9 K/uL (4.8-10.8)
[2018-01-28 22:17] LABS: MEAN CELL VOLUME 95.8 fL (81.0-99.0)
[2018-01-28 22:25] LABS: ALT/SGPT 26 U/L (9-52); AST/SGOT 23 U/L (14-36); BLOOD UREA NITROGEN 15 mg/dL (7-17); CALCIUM 10.2 mg/dl (8.6-10.4); GFR AFRICAN-AMERICAN > 60; GFR NON-AFRICAN AMERICAN 55; LIPASE 55 U/L (23-300)
[2018-01-28 23:02] LABS: PROTHROMBIN TIME 10.9 SECONDS (9.7-12.2)
--- NOTE | 2018-01-29 00:44 | CT ---
EXAM: CT Head Without Intravenous Contrast EXAM DATE/TIME: 01/28/2018 11:26 PM CLINICAL HISTORY: 67 years old, female; Pain; Headache and other: Dizziness; Patient HX: 17 images sent; Additional info: R/O bleed bed 14 TECHNIQUE: Axial computed tomography images of the head/brain without intravenous contrast. All CT scans at this facility use one or more dose reduction techniques, viz.: automated exposure control; ma/kV adjustment per patient size (including targeted exams where dose is matched to indication; i.e. head); or iterative reconstruction technique. COMPARISON: CT - HEAD W/O CONTRAST 2017-11-16 15:22 FINDINGS: There are stable areas of low attenuation in the left frontal lobe, left thalamus, right basal ganglia consistent with old infarcts. There is stable mild atrophy and chronic small vessel ischemic disease. No intracranial hemorrhage. No acute edema. No significant fluid in the sinuses. IMPRESSION: No acute findings.
[2018-01-29 05:06] VITALS: BP 135/52; PULSE 68; RESP 15; TEMP 97.8; O2SAT 98
== END 2018-01-29 07:25 | disposition home or self-care (01) ==
LOC: C.ER 20:50
DX: R42 Dizziness and giddiness (principal); K29.70 Gastritis, unspecified, without bleeding
CPT/HCPCS: 70450; 80053; 83690; 85025; 85610; 85730; 96361; 96374; 96375; 99285; J2060; J7040

== ENCOUNTER 2018-03-06 18:11 | Inpatient (IN) | payer MEDICARE ==
[2018-03-06 18:12] VITALS: BMI 33.0
[2018-03-06] MEDS ORDERED: Sodium Chloride 0.9% 500 ML IV ONE ×2 (19:32→19:44)
[2018-03-06] MEDS ORDERED: Enalaprilat 2.5 MG/2 ML IV ONE (19:35)
[2018-03-06 19:42] LABS: BASO % 0.1 % (0.0-2.0); HEMOGLOBIN 11.6 g/dL (11.0-16.0); LYMPH # 0.6 K/uL (1.0-4.3); LYMPH % 8.3 % (20.0-40.0); MEAN CELL VOLUME 99.8 fL (81.0-99.0); MEAN CORPUSCULAR HEMOGLOBIN 33.3 pg (27.0-31.0); MEAN CORPUSCULAR HGB CONC 33.4 g/dL (33.0-37.0); MEAN PLATELET VOLUME 9.9 fL (7.2-11.7); MONO # 0.8 K/uL (0.0-0.8); MONO % 10.4 % (0.0-10.0); NEUT # 6.1 K/uL (1.8-7.0); NEUT % 81.2 % (50.0-75.0); PLATELET COUNT 150 K/uL (130-400); RBC 3.48 Mil/uL (3.80-5.20); RED CELL DISTRIBUTION WIDTH 13.7 % (11.5-14.5); WHITE BLOOD COUNT 7.4 K/uL (4.8-10.8)
[2018-03-06] MEDS ORDERED: Enalaprilat 2.5 MG/2 ML ONE (19:44)
[2018-03-06 20:02] LABS: ALB/GLOB RATIO 1.1 (1.0-2.1); ALBUMIN 4.1 g/dL (3.5-5.0); ALT/SGPT 8 U/L (9-52); AST/SGOT 22 U/L (14-36); BLOOD UREA NITROGEN 24 mg/dL (7-17); CALCIUM 10.7 mg/dl (8.6-10.4); GFR AFRICAN-AMERICAN > 60; GFR NON-AFRICAN AMERICAN > 60; LIPASE 58 U/L (23-300)
[2018-03-06 20:04] LABS: BANDS 5 % (0-2); LYMPHOCYTE 11 % (20-40); MONOCYTE 9 % (0-10); NEUTROPHIL 75 % (50-75); PLATELET ESTIMATE NORMAL (NORMAL); TOTAL CELLS COUNTED 100
[2018-03-06] MEDS ORDERED: (Novolin R) Insulin Human Regular 100 units/ml vial IV STA (20:05)
[2018-03-06] MEDS ORDERED: (Novolin R) Insulin Human Regular 100 units/ml vial ONE (20:11)
--- NOTE | 2018-03-06 20:11 | C.PDOC ---
History Of Present Illness 67 y/o female presents to the ED complaining of persistent abdominal pain associated with nausea and vomiting. Patient has had many prior episodes of similar pain. Was last seen here in the ED on 01/25 for dizziness. She denies any diarrhea or fever. Time Seen by Provider: 03/06/18 19:19 Chief Complaint (Nursing): Abdominal Pain History Per: Patient History/Exam Limitations: no limitations Onset/Duration Of Symptoms: Intermittent Episodes Current Symptoms Are (Timing): Still Present Past Medical History Reviewed: Historical Data, Nursing Documentation, Vital Signs Vital Signs: Last Vital Signs Temp 97.9 F 03/06/18 18:47 Pulse 118 H 03/06/18 18:47 Resp 20 03/06/18 18:47 BP 160/59 H 03/06/18 19:48 Pulse Ox 99 03/06/18 20:17 - Medical History PMH: Anxiety, Arthritis, Asthma, Bipolar Disorder, Depression, Diabetes, HTN, Hypercholesterolemia, Osteoporosis, Paranoia Denies: Chronic Kidney Disease Surgical History: Appendectomy, Coronary Stent (PCI of the LAD with stent insertion ( [facility]) in 2007 in [place].) - [facility] Procedures EXCIS DEBRIDE OF WOUND, INFECT, OR BURN (02/06/15) INTRODUCTION OF SERUM/TOX/VACCINE INTO MUSCLE, PERC APPROACH (07/01/17) VACCINATION NEC (02/06/15) Family History: States: Unknown Family Hx - Social History Hx Tobacco Use: No Hx Alcohol Use: No Hx Substance Use: No - Immunization History Hx Tetanus Toxoid Vaccination: Yes Hx Influenza Vaccination: Yes Hx Pneumococcal Vaccination: Yes Review Of Systems Except As Marked, All Systems Reviewed And Found Negative. Constitutional: Negative for: Fever, Chills Gastrointestinal: Positive for: Nausea, Vomiting, Abdominal Pain. Negative for : Diarrhea Physical Exam - Physical Exam Appears: Non-toxic, No Acute Distress Skin: Normal Color, Warm, Dry Head: Atraumatic, Normacephalic Eye(s): bilateral: Normal Inspection, PERRL, EOMI Oral Mucosa: Moist Neck: Normal ROM, Supple Chest: Symmetrical Cardiovascular: Rhythm Regular, No Murmur Respiratory: Normal Breath Sounds, No Rales, No Rhonchi, No Wheezing Gastrointestinal/Abdominal: Soft, Tenderness (diffuse tenderness throughout, increased at periumbilical region), No Guarding, Other (Obese abdomen) Extremity: Bilateral: Atraumatic, Normal Color And Temperature, Normal ROM Neurological/Psych: Oriented x3, Normal Speech ED Course And Treatment - Laboratory Results Result Diagrams: 03/06/18 19:39 03/06/18 19:39 Lab Interpretation: Abnormal (+ elev glu) ECG: Interpreted By Me, Viewed By Me ECG Rhythm: Sinus Tachycardia ECG Interpretation: Abnormal Rate From EC O2 Sat by Pulse Oximetry: 99 (RA) Pulse Ox Interpretation: Normal - Radiology CXR: Interpreted by Me CXR Interpretation: Yes: No Acute Disease - Other Rad abd x 2 X-Ray: Interpreted by Me (+FOS) Reevaluation Time: 21:04 Reassessment Condition: Improved - Physician Consult Information Outcome Of Conversation: 2015: d/w PMD, Dr. Lynn, ok to admit. Medical Decision Making Medical Decision Making: Initial Impression: abd pain, nausea, vomiting Initial Plan: --EKG --Lipase --CMP --Troponin I --CBC --X-ray obstructive series --Urinalysis --IV fluids --Insulin 10 units IV --Pepcid 20 mg IV --Zofran 4 mg IVP --Protonix 40 mg IVP --Vasotec 2.5 mg IV --Toradol 30 mg IV --Reevaluation Disposition Doctor Will See Patient In The: Hospital Counseled Patient/Family Regarding: Studies Performed, Diagnosis - Disposition Disposition: HOSPITALIZED Disposition Time: 21:04 Condition: GOOD Forms: [facility] (Azerbaijani) - Clinical Impression Clinical Impression: Constipation, Uncontrolled diabetes mellitus, Intractable nausea and vomiting - Scribe Statement The provider has reviewed the documentation as recorded by the Scribe (Tatiana Kapoor) Provider Attestation: All medical record entries made by the Scribe were at my direction and personally dictated by me. I have reviewed the chart and agree that the record accurately reflects my personal performance of the history, physical exam, medical decision making, and the department course for this patient. I have also personally directed, reviewed, and agree with the discharge instructions and disposition.
[2018-03-07] MEDS: (Novolog) Insulin Aspart, Recombinant 100 u/ml 10 ml vial SC SCH ×4 (08:25→21:41)
[2018-03-07] MEDS ORDERED: INSULIN ASPART 14 UNIT SC SCH (10:00)
[2018-03-07] MEDS: Enoxaparin 40 mg Syringe SC SCH (10:09)
--- NOTE | 2018-03-07 16:43 | RAD ---
PROCEDURE: Radiographs of the chest and abdomen (obstructive series) HISTORY: Abdominal pain COMPARISON: No prior. TECHNIQUE: AP radiograph of the chest, with upright and supine radiographs of the abdomen. FINDINGS: CHEST: Heart size is upper limits of normal/borderline enlarged. Mild atelectasis and or infiltrate left medial lung base. The interstitial markings are also slightly increased and coarsened ABDOMEN AND PELVIS: No gross free intraperitoneal air seen under the diaphragmatic surfaces. Several on distended air-filled loops of small bowel in the left mid abdomen may represent ileus. Large amount of stool seen within the cecum and at ascending colon as well as to a lesser degree distal sigmoid and rectum ; findings consistent with mild constipation. . Mild multilevel degenerative spondylosis of the lumbar spine. IMPRESSION: Left lower lobe atelectasis and or infiltrate. Slightly coarsened increased interstitial markings. Mild cardiomegaly. Constipation with probable secondary ileus. . No evidence acute mechanical bowel obstruction. No gross free intraperitoneal air seen.
--- NOTE | 2018-03-07 21:55 | CP.PCM.HP ---
History of Present Illness - History of Present Illness History of Present Illness: 67 years old Filip[place] lady was brought to the ED at [facility] complaining of lower abdominal pain and nausea and vomiting several time yesterday. She denies any fever, any diarrhea, any burning micturation, any bloody urine. She is also complaining of severe low back pain, and bilateral hip pain, resulting in inabilty to walk. 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 Present on Admission - Present on Admission Any Indicators Present on Admission: Yes History of Uncontrolled Diabetes: Yes Review of Systems - Gastrointestinal Gastrointestinal: Abdominal Pain, Constipation, Nausea, Vomiting - Musculoskeletal Musculoskeletal: Back Pain, Muscle Weakness Additional comments: Pain in both hips and lumbar area with leg weakness. - Psychiatric Psychiatric: Anxiety, Hallucinations Past Patient History - Infectious Disease Hx of Infectious Diseases: None - Tetanus Immunizations Tetanus Immunization: Unknown - Past Medical History & Family History Past Medical History?: Yes - Past Social History Smoking Status: Never Smoked Alcohol: None Drugs: Denies Home Situation {Lives}: Alone - CARDIAC Hx Cardiac Disorders: Yes Hx Hypercholesterolemia: Yes Hx Hypertension: Yes - PULMONARY Hx Respiratory Disorders: Yes Hx Asthma: Yes - NEUROLOGICAL Hx Neurological Disorder: Yes HX Cerebrovascular Accident: Yes ( (blood clot left side of brain resolved as per pt.)) - HEENT Hx HEENT Problems: Yes Other/Comment: wear eyeglasses - RENAL Hx Chronic Kidney Disease: No - ENDOCRINE/METABOLIC Hx Endocrine Disorders: Yes Hx Diabetes Mellitus Type 1: Yes - HEMATOLOGICAL/ONCOLOGICAL Hx Blood Disorders: No - INTEGUMENTARY Hx Dermatological Problems: Yes Other/Comment: Hx skin rash - MUSCULOSKELETAL/RHEUMATOLOGICAL Hx Musculoskeletal Disorders: Yes Hx Arthritis: Yes Hx Falls: Yes Hx Osteoporosis: Yes - GASTROINTESTINAL Hx Gastrointestinal Disorders: No - GENITOURINARY/GYNECOLOGICAL Hx Genitourinary Disorders: Yes Hx Hematuria: Yes Hx Incontinence: Yes Hx Urinary Tract Infection: Yes - PSYCHIATRIC Hx Psychophysiologic Disorder: Yes Hx Anxiety: Yes Hx Bipolar Disorder: Yes Hx Depression: Yes Hx Paranoia: Yes Hx Substance Use: No - SURGICAL HISTORY Hx Surgeries: Yes Hx Appendectomy: Yes Hx Coronary Stent: Yes (PCI of the LAD with stent insertion ( [facility]) in 2008 in [place].) - ANESTHESIA Hx Anesthesia: Yes Hx Anesthesia Reactions: No Hx Malignant Hyperthermia: No Meds Allergies/Adverse Reactions: Allergies Allergy/AdvReac Type Severity Reaction Status Date / Time Penicillins Allergy RASH Verified 11/23/17 12:08 Physical Exam - Constitutional Appears: No Acute Distress, Chronically Ill - Head Exam Head Exam: NORMAL INSPECTION - Eye Exam Eye Exam: Normal appearance - ENT Exam ENT Exam: Normal Exam - Neck Exam Neck exam: Positive for: Normal Inspection - Respiratory Exam Respiratory Exam: Clear to Auscultation Bilateral, NORMAL BREATHING PATTERN - Cardiovascular Exam Cardiovascular Exam: REGULAR RHYTHM - GI/Abdominal Exam GI & Abdominal Exam: Normal Bowel Sounds, Soft, Tenderness Additional comments: Mild tenderness of the hypogastric area. - Rectal Exam Rectal Exam: Deferred - Extremities Exam Extremities exam: Positive for: tenderness Additional comments: Tender both hips. - Back Exam Back exam: tenderness Additional comments: Tender low back. - Neurological Exam Neurological exam: Alert, Oriented x3 Additional comments: Unsteady gait. - Psychiatric Exam Psychiatric exam: Anxious - Skin Skin Exam: Dry, Intact, Warm Results - Vital Signs Recent Vital Signs: Last Vital Signs Temp 97.9 F 03/07/18 15:00 Pulse 71 03/07/18 15:00 Resp 18 03/07/18 15:00 BP 112/58 L 03/07/18 15:00 Pulse Ox 97 03/07/18 15:00 - Labs Result Diagrams: 03/06/18 19:39 03/06/18 19:39 Labs: Laboratory Results - last 24 hr 03/06/18 03/07/18 03/07/18 22:22 02:37 06:40 POC Glucose (mg/dL) 286 H 265 H 242 H 03/07/18 03/07/18 03/07/18 11:13 15:56 21:08 POC Glucose (mg/dL) 268 H 283 H 317 H Assessment & Plan (1) Intractable nausea and vomiting Assessment and Plan: R/o fecal impaction. Try Lactullose Status: Acute (2) Uncontrolled diabetes mellitus Assessment and Plan: Control blood glucose with Lantus and Novolog coverage according to Accucheck findings. Status: Acute (3) Bilateral hip pain Assessment and Plan: Xrays of both hips, Control pain with Tramadol. Status: Acute (4) Low back pain Assessment and Plan: Xray of LS spines. Try Tramadol to control pain, PT Status: Acute Decision To Admit - Pt Status Changed To: Hospital Disposition Of: Inpatient - Admit Certification Admit to Inpatient:: After my assessment, the patient will require hospitalization for at least two midnights. This is because of the severity of symptoms shown, intensity of services needed, and/or the medical risk in this patient being treated as an outpatient. - InPatient: Physician Admission Certification:: After my assessment, the patient requires hospitalization for at least 2 midnights. - . Bed Request Type: Regular Admitting Physician: Cornell Lynn
[2018-03-07] MEDS ORDERED: (Lantus) Insulin Glargine, Recombinant SC SCH (22:00)
[2018-03-08] MEDS: (Novolog) Insulin Aspart, Recombinant 100 u/ml 10 ml vial SC SCH ×4 (08:21→21:18)
[2018-03-08 08:31] LABS: FREE T4 1.54 ng/dL (0.78-2.19)
[2018-03-08] MEDS: Enoxaparin 40 mg Syringe SC SCH (09:33)
--- NOTE | 2018-03-08 12:02 | RAD ---
PROCEDURE: Radiographs of the lumbar spine dated 03/08/2018 HISTORY: Low back pain with history of L3 fracture COMPARISON: Comparison made with radiographs lumbar spine 12/09/2017. Comparison also made with prior MRI of lumbar spine dated 11/27/2017 FINDINGS: BONES: Re- demonstrated is a compression fracture of the L3 segment with retropulsion of the posterior superior corner of this segment. Chronic anterior wedging of the T12, to a lesser degree L1, T11 segments with superior endplate deformity of the L2 segment. There is mild anterior subluxation L4 over L5. DISC SPACES: There is disc space narrowing seen at the L5-S1 level more so along the posterior disc margin with endplate eburnation. Small marginal osteophytes seen at several levels. Facet joints are hypertrophic L5-S1 through the L2-L3 levels in somewhat decreasing order of severity. OTHER FINDINGS: Note made of large amount of stool throughout the colon consistent with fecal retention/ constipation. The the IMPRESSION: Chronic at compression fracture L3 segment with retropulsion posterior superior cortex. There are additional thoracic and lumbar segments chronic anterior wedge deformities and endplate deformities as detailed above. Slight anterior subluxation L4 over L5 Findings consistent with constipation
--- NOTE | 2018-03-08 12:45 | RAD ---
PROCEDURE: Radiographs of the pelvis and bilateral hips dated 03/08/2018 HISTORY: Bilateral hip pain. . COMPARISON: Comparison made with pelvis and hip radiographs 11/16/2017. Comparison also made with CT scan abdomen pelvis 12/03/2017 which in imaged the pelvis and both hips in 3 planes. FINDINGS: BONES: No definitive evidence of acute displaced fracture nor dislocation. The osseous structures appear intact. Note that on stool related artifact partially obscures fine detail particular at the level of the right parasagittal symphysis region. . Both femoral heads are appropriately located within the respective acetabula. . Mild degenerative changes both hip joints. Mild degenerative spondylosis visualized lower lumbosacral spine IMPRESSION: No acute fracture seen. Mild DJD.
[2018-03-08] MEDS: (Lantus) Insulin Glargine, Recombinant SC SCH (21:18)
[2018-03-09] MEDS: (Novolog) Insulin Aspart, Recombinant 100 u/ml 10 ml vial SC SCH ×4 (08:34→21:15)
[2018-03-09] MEDS ORDERED: Bisacodyl 5mg EC Tab PO ONE (10:37)
[2018-03-09] MEDS: Enoxaparin 40 mg Syringe SC SCH (10:59)
--- NOTE | 2018-03-09 19:53 | CP.PCM.PN ---
Subjective - Date & Time of Evaluation Date of Evaluation: 03/09/18 Time of Evaluation: 19:42 - Subjective Subjective: Patient still complaining of a low back pain, weakness of both legs and abdominal pain. Has not had a BM for several days in spite of Lactulase, Dulcolax, Colace. LS spine XR reveals osteoarthritis and an old compression fracture of L3 and Hip X ray reveals minimal osteoarthritis. Patient remains bedbound. Will order PT and OT and a mineral oil fleet enema. Objective - Vital Signs/Intake and Output Vital Signs (last 24 hours): Temp Pulse Resp BP Pulse Ox 98 F 63 20 139/62 96 03/09/18 15:00 03/09/18 15:00 03/09/18 15:00 03/09/18 15:00 03/09/18 15:00 Intake and Output: 03/09/18 03/10/18 18:59 06:59 Intake Total 500 Balance 500 - Medications Medications: Current Medications Amlodipine Besylate (Norvasc) 10 mg PO DAILY [facility] Last Admin: 03/09/18 10:59 Dose: 10 mg Bupropion HCl (Wellbutrin) 200 mg PO DAILY [facility] Last Admin: 03/09/18 10:59 Dose: 200 mg Docusate Sodium (Colace) 100 mg PO BID [facility] Last Admin: 03/09/18 17:33 Dose: 100 mg Enoxaparin Sodium (Lovenox) 40 mg SC DAILY [facility] Last Admin: 03/09/18 10:59 Dose: 40 mg Famotidine (Pepcid) 20 mg PO BID [facility] Last Admin: 03/09/18 17:33 Dose: 20 mg Hydrochlorothiazide (Hydrodiuril) 25 mg PO DAILY [facility] Last Admin: 03/09/18 10:59 Dose: 25 mg Insulin Aspart (Novolog) 0 unit SC ACHS [facility] PRN Reason: Protocol Last Admin: 03/09/18 17:34 Dose: 4 unit Insulin Glargine (Lantus) 35 unit SC HS [facility] Last Admin: 03/08/18 21:18 Dose: 35 units Isosorbide Mononitrate (Imdur Er) 30 mg PO BID [facility] Last Admin: 03/09/18 17:34 Dose: 30 mg Lactulose (Enulose) 20 gm PO BID PRN PRN Reason: Constipation Last Admin: 03/09/18 10:54 Dose: 20 gm Losartan Potassium (Cozaar) 50 mg PO DAILY [facility] Last Admin: 03/09/18 10:59 Dose: 50 mg Meclizine HCl (Antivert) 25 mg PO Q6 PRN PRN Reason: Dizziness Metoprolol Tartrate (Lopressor) 12.5 mg PO DAILY [facility] Last Admin: 03/09/18 10:59 Dose: 12.5 mg Montelukast Sodium (Singulair) 10 mg PO [facility] Last Admin: 03/08/18 21:18 Dose: 10 mg Rosuvastatin Calcium (Crestor) 5 mg PO HS [facility] Last Admin: 03/08/18 21:18 Dose: 5 mg Tramadol HCl (Ultram) 50 mg PO Q8 PRN PRN Reason: Pain, moderate (4-7) Last Admin: 03/09/18 13:02 Dose: 50 mg - Labs Labs: 03/06/18 19:39 03/06/18 19:39 - Constitutional Appears: No Acute Distress, Chronically Ill - Head Exam Head Exam: NORMOCEPHALIC - Eye Exam Eye Exam: Normal appearance - ENT Exam ENT Exam: Normal Exam - Respiratory Exam Respiratory Exam: Clear to Ausculation Bilateral, NORMAL BREATHING PATTERN - Cardiovascular Exam Cardiovascular Exam: REGULAR RHYTHM - GI/Abdominal Exam GI & Abdominal Exam: Soft, Normal Bowel Sounds - Rectal Exam Rectal Exam: Deferred - Extremities Exam Extremities Exam: Normal Inspection - Back Exam Back Exam: NORMAL INSPECTION - Neurological Exam Neurological Exam: Alert, Awake, Oriented x3 - Psychiatric Exam Psychiatric exam: Anxious - Skin Skin Exam: Dry, Intact, Normal Color, Warm Assessment and Plan (1) Intractable nausea and vomiting Assessment & Plan: Abdominal XR did not show any air-fluid level. Fecal materials seen in the colon compatible with constipation. Status: Acute (2) Uncontrolled diabetes mellitus Assessment & Plan: To control blood glucose with Lantus, Novolog according to Accuchek findings. Status: Acute (3) Bilateral hip pain Assessment & Plan: To continue analgesics and PT. Status: Acute (4) Low back pain Assessment & Plan: To continue analgesics and PT. Status: Acute
[2018-03-09] MEDS ORDERED: Mineral Oil Enema 135 ml RC ONE (20:00)
[2018-03-09] MEDS: (Lantus) Insulin Glargine, Recombinant SC SCH (21:15)
[2018-03-10] MEDS: (Novolog) Insulin Aspart, Recombinant 100 u/ml 10 ml vial SC SCH ×4 (08:04→21:44)
[2018-03-10 08:31] LABS: BASO % 0.2 % (0.0-2.0); EOS % 0.1 % (0.0-4.0); HEMOGLOBIN 12.2 g/dL (11.0-16.0); LYMPH # 1.2 K/uL (1.0-4.3); LYMPH % 20.3 % (20.0-40.0); MEAN CORPUSCULAR HEMOGLOBIN 33.3 pg (27.0-31.0); MEAN CORPUSCULAR HGB CONC 34.4 g/dL (33.0-37.0); MEAN PLATELET VOLUME 9.8 fL (7.2-11.7); MONO # 1.8 K/uL (0.0-0.8); NEUT # 2.7 K/uL (1.8-7.0); NEUT % 47.4 % (50.0-75.0); NRBC % 0.1 % (0.0-2.0); PLATELET COUNT 139 K/uL (130-400); RBC 3.65 Mil/uL (3.80-5.20); RED CELL DISTRIBUTION WIDTH 13.4 % (11.5-14.5); WHITE BLOOD COUNT 5.7 K/uL (4.8-10.8)
[2018-03-10 08:32] LABS: MEAN CELL VOLUME 96.7 fL (81.0-99.0)
[2018-03-10 08:41] LABS: ALBUMIN 3.7 g/dL (3.5-5.0); ALT/SGPT 13 U/L (9-52); AST/SGOT 16 U/L (14-36); BLOOD UREA NITROGEN 14 mg/dL (7-17); CALCIUM 10.7 mg/dl (8.6-10.4); GFR AFRICAN-AMERICAN > 60; GFR NON-AFRICAN AMERICAN > 60
[2018-03-10 09:54] LABS: BANDS 1 % (0-2); LYMPHOCYTE 23 % (20-40); MONOCYTE 30 % (0-10); NEUTROPHIL 46 % (50-75); TOTAL CELLS COUNTED 100
[2018-03-10 09:55] LABS: PLATELET ESTIMATE NORMAL (NORMAL)
[2018-03-10] MEDS: Enoxaparin 40 mg Syringe SC SCH (10:01)
--- NOTE | 2018-03-10 14:38 | CP.PCM.PN ---
Subjective - Date & Time of Evaluation Date of Evaluation: 03/10/18 Time of Evaluation: 14:35 - Subjective Subjective: Patient with hips pain and legs weakness, unable to stand by herself. Still constipated. Had refused Fleet enema last night. Complaining of abdominal pain and nausea. Objective - Vital Signs/Intake and Output Vital Signs (last 24 hours): Temp Pulse Resp BP Pulse Ox 98.0 F 75 18 148/74 99 03/10/18 07:30 03/10/18 07:30 03/10/18 07:30 03/10/18 07:30 03/10/18 07:30 Intake and Output: 03/10/18 03/10/18 06:59 18:59 Intake Total 800 Output Total 300 Balance 500 - Medications Medications: Current Medications Amlodipine Besylate (Norvasc) 10 mg PO DAILY [facility] Last Admin: 03/10/18 09:59 Dose: 10 mg Bupropion HCl (Wellbutrin) 200 mg PO DAILY [facility] Last Admin: 03/10/18 10:01 Dose: 200 mg Docusate Sodium (Colace) 100 mg PO BID [facility] Last Admin: 03/10/18 10:01 Dose: 100 mg Enoxaparin Sodium (Lovenox) 40 mg SC DAILY [facility] Last Admin: 03/10/18 10:01 Dose: 40 mg Famotidine (Pepcid) 20 mg PO BID [facility] Last Admin: 03/10/18 09:59 Dose: 20 mg Glipizide (Glucotrol) 5 mg PO BID [facility] Last Admin: 03/10/18 10:01 Dose: 5 mg Hydrochlorothiazide (Hydrodiuril) 25 mg PO DAILY [facility] Last Admin: 03/10/18 09:59 Dose: 25 mg Insulin Aspart (Novolog) 0 unit SC [facility] PRN Reason: Protocol Last Admin: 03/10/18 12:22 Dose: 8 unit Insulin Glargine (Lantus) 35 unit SC [facility] Last Admin: 03/09/18 21:15 Dose: 35 units Isosorbide Mononitrate (Imdur Er) 30 mg PO BID [facility] Last Admin: 03/10/18 10:01 Dose: 30 mg Lactulose (Enulose) 20 gm PO BID [facility] Losartan Potassium (Cozaar) 50 mg PO DAILY [facility] Last Admin: 03/10/18 10:00 Dose: 50 mg Meclizine HCl (Antivert) 25 mg PO Q6 PRN PRN Reason: Dizziness Metoprolol Tartrate (Lopressor) 12.5 mg PO DAILY [facility] Last Admin: 03/10/18 10:01 Dose: 12.5 mg Montelukast Sodium (Singulair) 10 mg PO HS [facility] Last Admin: 03/09/18 21:07 Dose: 10 mg Rosuvastatin Calcium (Crestor) 5 mg PO [facility] Last Admin: 03/09/18 21:07 Dose: 5 mg Tramadol HCl (Ultram) 50 mg PO Q8 PRN PRN Reason: Pain, moderate (4-7) Last Admin: 03/10/18 09:59 Dose: 50 mg - Labs Labs: 03/10/18 08:13 03/10/18 08:13 - Constitutional Appears: No Acute Distress, Chronically Ill - Head Exam Head Exam: NORMAL INSPECTION - Eye Exam Eye Exam: Normal appearance, PERRL - ENT Exam ENT Exam: Normal Exam - Respiratory Exam Respiratory Exam: Clear to Ausculation Bilateral, NORMAL BREATHING PATTERN - Cardiovascular Exam Cardiovascular Exam: REGULAR RHYTHM - GI/Abdominal Exam GI & Abdominal Exam: Soft, Normal Bowel Sounds - Rectal Exam Rectal Exam: Deferred - Extremities Exam Additional comments: Tender both hips. - Back Exam Back Exam: NORMAL INSPECTION - Neurological Exam Neurological Exam: Alert, Awake, Oriented x3 - Psychiatric Exam Psychiatric exam: Anxious - Skin Skin Exam: Dry, Intact, Normal Color Assessment and Plan (1) Intractable nausea and vomiting Assessment & Plan: Try Fleet enema again for constipation. Status: Acute (2) Uncontrolled diabetes mellitus Status: Acute (3) Bilateral hip pain Status: Acute (4) Low back pain Status: Acute
[2018-03-10] MEDS ORDERED: Bisacodyl 5mg EC Tab PO ONE (16:00)
[2018-03-10] MEDS: (Lantus) Insulin Glargine, Recombinant SC SCH (21:40)
[2018-03-11 07:42] LABS: BASO % 0.3 % (0.0-2.0); EOS % 0.1 % (0.0-4.0); HEMOGLOBIN 11.6 g/dL (11.0-16.0); LYMPH # 1.4 K/uL (1.0-4.3); LYMPH % 13.7 % (20.0-40.0); MEAN CELL VOLUME 95.9 fL (81.0-99.0); MEAN CORPUSCULAR HEMOGLOBIN 33.7 pg (27.0-31.0); MEAN CORPUSCULAR HGB CONC 35.2 g/dL (33.0-37.0); MEAN PLATELET VOLUME 10.9 fL (7.2-11.7); MONO # 3.8 K/uL (0.0-0.8); MONO % 37.3 % (0.0-10.0); NEUT # 4.9 K/uL (1.8-7.0); NEUT % 48.6 % (50.0-75.0); PLATELET COUNT 138 K/uL (130-400); RBC 3.45 Mil/uL (3.80-5.20); RED CELL DISTRIBUTION WIDTH 13.3 % (11.5-14.5)
[2018-03-11 07:43] LABS: WHITE BLOOD COUNT 10.1 K/uL (4.8-10.8)
[2018-03-11 07:58] LABS: ALBUMIN 3.7 g/dL (3.5-5.0); ALT/SGPT 12 U/L (9-52); AST/SGOT 17 U/L (14-36); BLOOD UREA NITROGEN 16 mg/dL (7-17); CALCIUM 10.4 mg/dl (8.6-10.4); GFR AFRICAN-AMERICAN > 60; GFR NON-AFRICAN AMERICAN > 60
[2018-03-11] MEDS: (Novolog) Insulin Aspart, Recombinant 100 u/ml 10 ml vial SC SCH ×4 (08:24→21:38)
[2018-03-11 08:26] LABS: LYMPHOCYTE 12 % (20-40); MONOCYTE 33 % (0-10); TOTAL CELLS COUNTED 100
[2018-03-11 08:27] LABS: GIANT PLATELETS PRESENT; HYPOCHROMIC SLIGHT; LARGE PLATELETS PRESENT; NEUTROPHIL 55 % (50-75); PLATELET ESTIMATE NORMAL (NORMAL)
[2018-03-11] MEDS: Enoxaparin 40 mg Syringe SC SCH (09:32)
[2018-03-11] MEDS ORDERED: Potassium Chloride 20 mEq ER Tab PO ONE (10:31)
[2018-03-11 16:14] VITALS: RESP 20
[2018-03-11] MEDS: (Lantus) Insulin Glargine, Recombinant SC SCH (21:55)
--- NOTE | 2018-03-11 23:30 | CP.PCM.PN ---
Subjective - Date & Time of Evaluation Date of Evaluation: 03/11/18 Time of Evaluation: 20:45 - Subjective Subjective: Patient still with back and hip pain, and leg weakness. Had a large BM yesterday following a Fleet enema. Receiving PT. Objective - Vital Signs/Intake and Output Vital Signs (last 24 hours): Temp Pulse Resp BP Pulse Ox 98.0 F 77 20 145/74 97 03/11/18 15:00 03/11/18 15:00 03/11/18 15:00 03/11/18 15:00 03/11/18 15:00 Intake and Output: 03/11/18 03/12/18 18:59 06:59 Intake Total 300 Output Total 600 Balance 300 -600 - Medications Medications: Current Medications Amlodipine Besylate (Norvasc) 10 mg PO DAILY [facility] Last Admin: 03/11/18 09:31 Dose: 10 mg Bupropion HCl (Wellbutrin) 200 mg PO DAILY [facility] Last Admin: 03/11/18 09:31 Dose: 200 mg Docusate Sodium (Colace) 100 mg PO BID [facility] Last Admin: 03/11/18 18:22 Dose: 100 mg Enoxaparin Sodium (Lovenox) 40 mg SC DAILY [facility] Last Admin: 03/11/18 09:32 Dose: 40 mg Famotidine (Pepcid) 20 mg PO BID [facility] Last Admin: 03/11/18 18:22 Dose: 20 mg Glipizide (Glucotrol) 5 mg PO BID [facility] Last Admin: 03/11/18 18:22 Dose: 5 mg Hydrochlorothiazide (Hydrodiuril) 25 mg PO DAILY [facility] Last Admin: 03/11/18 09:31 Dose: 25 mg Insulin Aspart (Novolog) 0 unit SC [facility] PRN Reason: Protocol Last Admin: 03/11/18 21:38 Dose: Not Given Insulin Glargine (Lantus) 35 unit SC HS [facility] Last Admin: 03/11/18 21:55 Dose: 35 units Isosorbide Mononitrate (Imdur Er) 30 mg PO BID [facility] Last Admin: 03/11/18 18:22 Dose: 30 mg Lactulose (Enulose) 20 gm PO BID [facility] Last Admin: 03/11/18 18:22 Dose: 20 gm Losartan Potassium (Cozaar) 50 mg PO DAILY [facility] Last Admin: 03/11/18 09:32 Dose: 50 mg Meclizine HCl (Antivert) 25 mg PO Q6 PRN PRN Reason: Dizziness Metoprolol Tartrate (Lopressor) 12.5 mg PO DAILY [facility] Last Admin: 03/11/18 09:32 Dose: 12.5 mg Montelukast Sodium (Singulair) 10 mg PO HS [facility] Last Admin: 03/11/18 21:55 Dose: 10 mg Rosuvastatin Calcium (Crestor) 5 mg PO HS [facility] Last Admin: 03/11/18 21:54 Dose: 5 mg Tramadol HCl (Ultram) 50 mg PO Q8 PRN PRN Reason: Pain, moderate (4-7) Last Admin: 03/11/18 18:22 Dose: 50 mg - Labs Labs: 03/11/18 07:15 03/11/18 07:15 - Constitutional Appears: No Acute Distress, Chronically Ill - Head Exam Head Exam: NORMAL INSPECTION - Eye Exam Eye Exam: Normal appearance - ENT Exam ENT Exam: Normal Exam - Neck Exam Neck Exam: Normal Inspection - Respiratory Exam Respiratory Exam: Clear to Ausculation Bilateral, NORMAL BREATHING PATTERN - Cardiovascular Exam Cardiovascular Exam: REGULAR RHYTHM - GI/Abdominal Exam GI & Abdominal Exam: Soft, Normal Bowel Sounds - Rectal Exam Rectal Exam: Deferred - Extremities Exam Additional comments: Weakness of both legs. - Back Exam Back Exam: tenderness - Neurological Exam Neurological Exam: Alert, Awake, Oriented x3 - Psychiatric Exam Psychiatric exam: Anxious - Skin Skin Exam: Dry, Intact, Warm Assessment and Plan (1) Intractable nausea and vomiting Status: Resolved (2) Uncontrolled diabetes mellitus Status: Acute (3) Bilateral hip pain Assessment & Plan: To continue Tramadol. Status: Acute (4) Low back pain Assessment & Plan: To continue Tramadol and PT. Status: Acute
[2018-03-12] MEDS: (Novolog) Insulin Aspart, Recombinant 100 u/ml 10 ml vial SC SCH ×4 (07:28→22:43)
[2018-03-12 08:22] LABS: BASO % 0.3 % (0.0-2.0); EOS % 0.2 % (0.0-4.0); HEMOGLOBIN 10.9 g/dL (11.0-16.0); LYMPH # 1.3 K/uL (1.0-4.3); LYMPH % 17.7 % (20.0-40.0); MEAN CELL VOLUME 95.7 fL (81.0-99.0); MEAN CORPUSCULAR HEMOGLOBIN 33.8 pg (27.0-31.0); MEAN CORPUSCULAR HGB CONC 35.3 g/dL (33.0-37.0); MEAN PLATELET VOLUME 10.5 fL (7.2-11.7); MONO # 2.3 K/uL (0.0-0.8); MONO % 31.3 % (0.0-10.0); NEUT # 3.7 K/uL (1.8-7.0); NEUT % 50.5 % (50.0-75.0); PLATELET COUNT 145 K/uL (130-400); RBC 3.22 Mil/uL (3.80-5.20); RED CELL DISTRIBUTION WIDTH 13.4 % (11.5-14.5); WHITE BLOOD COUNT 7.2 K/uL (4.8-10.8)
[2018-03-12 08:39] LABS: ALB/GLOB RATIO 0.9 (1.0-2.1); ALBUMIN 3.3 g/dL (3.5-5.0); ALT/SGPT 11 U/L (9-52); AST/SGOT 14 U/L (14-36); BLOOD UREA NITROGEN 22 mg/dL (7-17); CALCIUM 10.1 mg/dl (8.6-10.4); GFR AFRICAN-AMERICAN > 60; GFR NON-AFRICAN AMERICAN > 60
[2018-03-12 09:38] LABS: BANDS 1 % (0-2); HYPOCHROMIC SLIGHT; LYMPHOCYTE 17 % (20-40); MONOCYTE 30 % (0-10); NEUTROPHIL 52 % (50-75); PLATELET ESTIMATE NORMAL (NORMAL); TOTAL CELLS COUNTED 100
[2018-03-12] MEDS: Enoxaparin 40 mg Syringe SC SCH (10:17)
[2018-03-12] MEDS ORDERED: Potassium Chloride 20 mEq ER Tab PO ONE (11:30)
[2018-03-12] MEDS: (Lantus) Insulin Glargine, Recombinant SC SCH (22:45)
[2018-03-13] MEDS: (Novolog) Insulin Aspart, Recombinant 100 u/ml 10 ml vial SC SCH ×4 (08:15→22:03)
[2018-03-13 08:16] LABS: BASO % 0.2 % (0.0-2.0); EOS % 0.2 % (0.0-4.0); LYMPH # 1.3 K/uL (1.0-4.3); MEAN CELL VOLUME 96.6 fL (81.0-99.0); MEAN CORPUSCULAR HEMOGLOBIN 33.5 pg (27.0-31.0); MEAN CORPUSCULAR HGB CONC 34.6 g/dL (33.0-37.0); MEAN PLATELET VOLUME 10.7 fL (7.2-11.7); MONO # 1.8 K/uL (0.0-0.8); MONO % 25.1 % (0.0-10.0); NEUT % 56.5 % (50.0-75.0); PLATELET COUNT 167 K/uL (130-400); RBC 3.28 Mil/uL (3.80-5.20); RED CELL DISTRIBUTION WIDTH 13.1 % (11.5-14.5)
[2018-03-13 08:43] LABS: ALBUMIN 3.3 g/dL (3.5-5.0); ALT/SGPT 10 U/L (9-52); AST/SGOT 17 U/L (14-36); BLOOD UREA NITROGEN 25 mg/dL (7-17); GFR AFRICAN-AMERICAN > 60; GFR NON-AFRICAN AMERICAN > 60
[2018-03-13 08:56] LABS: LYMPHOCYTE 20 % (20-40); MONOCYTE 23 % (0-10); NEUTROPHIL 57 % (50-75); PLATELET ESTIMATE NORMAL (NORMAL); TOTAL CELLS COUNTED 100
[2018-03-13 08:57] LABS: HYPOCHROMIC SLIGHT
[2018-03-13] MEDS: Enoxaparin 40 mg Syringe SC SCH (09:04)
[2018-03-13] MEDS ORDERED: Potassium Chloride 20 mEq ER Tab PO ONE (11:00)
--- NOTE | 2018-03-13 15:29 | CP.PCM.PN ---
Subjective - Date & Time of Evaluation Date of Evaluation: 03/13/18 Time of Evaluation: 15:29 - Subjective Subjective: PATIENT WAS ADMITTED FOR CONSTIPATION AAO X 3 NO SIGN DISTRESS NOTED Objective - Vital Signs/Intake and Output Vital Signs (last 24 hours): Temp Pulse Resp BP Pulse Ox 98.1 F 80 20 139/75 96 03/13/18 08:07 03/13/18 08:07 03/13/18 08:07 03/13/18 08:07 03/13/18 08:07 Intake and Output: 03/13/18 03/13/18 06:59 18:59 Intake Total 400 Output Total 600 Balance -200 - Medications Medications: Current Medications Acetaminophen (Tylenol 325mg Tab) 650 mg PO Q6 PRN PRN Reason: Pain, Mild (1-3) Last Admin: 03/13/18 15:04 Dose: 650 mg Amlodipine Besylate (Norvasc) 10 mg PO DAILY [facility] Last Admin: 03/13/18 09:03 Dose: 10 mg Bupropion HCl (Wellbutrin) 200 mg PO DAILY [facility] Last Admin: 03/13/18 09:03 Dose: 200 mg Docusate Sodium (Colace) 100 mg PO BID [facility] Last Admin: 03/13/18 09:03 Dose: 100 mg Enoxaparin Sodium (Lovenox) 40 mg SC DAILY [facility] Last Admin: 03/13/18 09:04 Dose: 40 mg Famotidine (Pepcid) 20 mg PO BID [facility] Last Admin: 03/13/18 09:03 Dose: 20 mg Glipizide (Glucotrol) 5 mg PO BID [facility] Last Admin: 03/13/18 09:03 Dose: 5 mg Hydrochlorothiazide (Hydrodiuril) 25 mg PO DAILY [facility] Last Admin: 03/13/18 09:03 Dose: 25 mg Insulin Aspart (Novolog) 0 unit SC ACHS [facility] PRN Reason: Protocol Last Admin: 03/13/18 12:20 Dose: 4 unit Insulin Glargine (Lantus) 35 unit SC HS [facility] Last Admin: 03/12/18 22:45 Dose: 35 units Isosorbide Mononitrate (Imdur Er) 30 mg PO BID [facility] Last Admin: 03/13/18 09:05 Dose: 30 mg Lactulose (Enulose) 20 gm PO BID [facility] Last Admin: 03/13/18 09:04 Dose: 20 gm Losartan Potassium (Cozaar) 50 mg PO DAILY [facility] Last Admin: 03/13/18 09:03 Dose: 50 mg Meclizine HCl (Antivert) 25 mg PO Q6 PRN PRN Reason: Dizziness Metoprolol Tartrate (Lopressor) 12.5 mg PO DAILY [facility] Last Admin: 03/13/18 09:03 Dose: 12.5 mg Montelukast Sodium (Singulair) 10 mg PO [facility] Last Admin: 03/12/18 22:40 Dose: 10 mg Rosuvastatin Calcium (Crestor) 5 mg PO HS [facility] Last Admin: 03/12/18 22:40 Dose: 5 mg - Labs Labs: 03/13/18 08:07 03/13/18 08:07 Assessment and Plan - Assessment and Plan (Free Text) Assessment: PATIENT SEEN AND EXAMINED AT THE BEDSIDE LUNG SOUND CLEAR SARBJIT POSITIVE BOWEL SOUND ALL QUADRANT BM X3 PER THE NURSES DISCUSS WITH DR THAPA WHO AGREE WITH THE PLAN TO SENT HER TO [facility] UNDER THE SERVICE OF THE FACILITY DOCTOR AT [facility]\ CONTINUE ALL YOUR HOME MEDICATION NEW PRESCRIPTIN GIVEN COLACE 100 MG PO BID GLUCOTROL 5 MG PO BID ACTIVITY TOLERATED AND PER FACILITY PROTOCOL CALL [facility] ONE MD FOR FURTHER ORDER DISCUSS WITH PATIENT WHO AGREE AND VERBALIZED UNDERSTANDING
[2018-03-13 17:02] VITALS: BP 125/66; PULSE 72; TEMP 98.5; O2SAT 95
--- NOTE | 2018-03-13 18:34 | CP.PCM.PN ---
Subjective - Date & Time of Evaluation Date of Evaluation: 03/13/18 Time of Evaluation: 18:31 - Subjective Subjective: Patient has no complaint. For transfer to subacute rehab today. Objective - Vital Signs/Intake and Output Vital Signs (last 24 hours): Temp Pulse Resp BP Pulse Ox 98.5 F 72 20 125/66 95 03/13/18 15:00 03/13/18 15:00 03/13/18 15:00 03/13/18 15:00 03/13/18 15:00 Intake and Output: 03/13/18 03/13/18 06:59 18:59 Intake Total 400 Output Total 600 Balance -200 - Medications Medications: Current Medications Acetaminophen (Tylenol 325mg Tab) 650 mg PO Q6 PRN PRN Reason: Pain, Mild (1-3) Last Admin: 03/13/18 15:04 Dose: 650 mg Amlodipine Besylate (Norvasc) 10 mg PO DAILY [facility] Last Admin: 03/13/18 09:03 Dose: 10 mg Bupropion HCl (Wellbutrin) 200 mg PO DAILY [facility] Last Admin: 03/13/18 09:03 Dose: 200 mg Docusate Sodium (Colace) 100 mg PO BID [facility] Last Admin: 03/13/18 17:38 Dose: 100 mg Enoxaparin Sodium (Lovenox) 40 mg SC DAILY [facility] Last Admin: 03/13/18 09:04 Dose: 40 mg Famotidine (Pepcid) 20 mg PO BID [facility] Last Admin: 03/13/18 17:38 Dose: 20 mg Glipizide (Glucotrol) 5 mg PO BID [facility] Last Admin: 03/13/18 17:38 Dose: 5 mg Hydrochlorothiazide (Hydrodiuril) 25 mg PO DAILY [facility] Last Admin: 03/13/18 09:03 Dose: 25 mg Insulin Aspart (Novolog) 0 unit SC ACHS [facility] PRN Reason: Protocol Last Admin: 03/13/18 17:38 Dose: 3 unit Insulin Glargine (Lantus) 35 unit SC HS [facility] Last Admin: 03/12/18 22:45 Dose: 35 units Isosorbide Mononitrate (Imdur Er) 30 mg PO BID [facility] Last Admin: 03/13/18 17:38 Dose: 30 mg Lactulose (Enulose) 20 gm PO BID [facility] Last Admin: 03/13/18 17:39 Dose: 20 gm Losartan Potassium (Cozaar) 50 mg PO DAILY [facility] Last Admin: 03/13/18 09:03 Dose: 50 mg Meclizine HCl (Antivert) 25 mg PO Q6 PRN PRN Reason: Dizziness Metoprolol Tartrate (Lopressor) 12.5 mg PO DAILY [facility] Last Admin: 03/13/18 09:03 Dose: 12.5 mg Montelukast Sodium (Singulair) 10 mg PO [facility] Last Admin: 03/12/18 22:40 Dose: 10 mg Rosuvastatin Calcium (Crestor) 5 mg PO [facility] Last Admin: 03/12/18 22:40 Dose: 5 mg - Labs Labs: 03/13/18 08:07 03/13/18 08:07 - Constitutional Appears: No Acute Distress, Chronically Ill - Head Exam Head Exam: NORMAL INSPECTION - Eye Exam Eye Exam: Normal appearance - ENT Exam ENT Exam: Normal Exam - Neck Exam Neck Exam: Normal Inspection - Respiratory Exam Respiratory Exam: Clear to Ausculation Bilateral, NORMAL BREATHING PATTERN - Cardiovascular Exam Cardiovascular Exam: REGULAR RHYTHM - GI/Abdominal Exam GI & Abdominal Exam: Soft, Normal Bowel Sounds - Rectal Exam Rectal Exam: Deferred - Extremities Exam Additional comments: Tender both hips. Weakness of both lower extremities. - Back Exam Back Exam: tenderness Additional comments: Tender low back. - Neurological Exam Neurological Exam: Abnormal Gait, Alert, Awake, Oriented x3 - Psychiatric Exam Psychiatric exam: Anxious - Skin Skin Exam: Dry, Normal Color, Warm Assessment and Plan (1) Intractable nausea and vomiting Status: Resolved (2) Uncontrolled diabetes mellitus Status: Acute (3) Bilateral hip pain Assessment & Plan: To continue Tramadol and physical therapy Status: Acute (4) Low back pain Status: Acute
[2018-03-13] MEDS: (Lantus) Insulin Glargine, Recombinant SC SCH (22:02)
--- NOTE | 2018-03-15 10:59 | CARD ---
APPROVED REPORT EKG Measurement Heart [id number] [id number] <Conclusion> Sinus tachycardia Voltage criteria for left ventricular hypertrophy Abnormal ECG
== END 2018-03-13 23:30 | DRG 392 ==
LOC: C.ER 18:11 → C.9E 20:23 → C.5S 22:10
PROVIDERS: ADMIT Internal Medicine Cardiovascular Disease; ATTEND Internal Medicine Cardiovascular Disease
DX: K59.00 Constipation, unspecified (principal); I69.351 Hemiplegia and hemiparesis following cerebral infarction affecting right dominant side; E10.65 Type 1 diabetes mellitus with hyperglycemia; E78.00 Pure hypercholesterolemia, unspecified; F20.9 Schizophrenia, unspecified; F31.9 Bipolar disorder, unspecified; I10 Essential (primary) hypertension; M47.9 Spondylosis, unspecified; I25.10 Atherosclerotic heart disease of native coronary artery without angina pectoris; J45.909 Unspecified asthma, uncomplicated; M81.0 Age-related osteoporosis without current pathological fracture; Z74.01 Bed confinement status; Z79.4 Long term (current) use of insulin; Z95.5 Presence of coronary angioplasty implant and graft

== ENCOUNTER 2018-05-18 11:42 | Inpatient (IN) | payer MEDICARE ==
[2018-05-18 11:48] VITALS: BMI 28.7
[2018-05-18 13:24] LABS: BASO % 0.4 % (0.0-2.0); EOS % 0.1 % (0.0-4.0); HEMOGLOBIN 11.7 g/dL (11.0-16.0); LYMPH # 1.1 K/uL (1.0-4.3); LYMPH % 20.9 % (20.0-40.0); MEAN CELL VOLUME 96.3 fL (81.0-99.0); MEAN CORPUSCULAR HGB CONC 33.2 g/dL (33.0-37.0); MEAN PLATELET VOLUME 10.3 fL (7.2-11.7); MONO # 1.8 K/uL (0.0-0.8); MONO % 35.4 % (0.0-10.0); NEUT # 2.2 K/uL (1.8-7.0); NEUT % 43.2 % (50.0-75.0); NRBC % 0.8 % (0.0-2.0); RBC 3.67 Mil/uL (3.80-5.20); RED CELL DISTRIBUTION WIDTH 13.9 % (11.5-14.5); WHITE BLOOD COUNT 5.1 K/uL (4.8-10.8)
[2018-05-18 13:39] LABS: PLATELET COUNT 135 K/uL (130-400)
[2018-05-18 13:41] LABS: CALCIUM 10.4 mg/dl (8.6-10.4); GFR AFRICAN-AMERICAN > 60; GFR NON-AFRICAN AMERICAN > 60
[2018-05-18 13:43] LABS: ALB/GLOB RATIO 1.2 (1.0-2.1); ALBUMIN 4.4 g/dL (3.5-5.0); ALT/SGPT 12 U/L (9-52); AST/SGOT 48 U/L (14-36); BLOOD UREA NITROGEN 19 mg/dL (7-17)
[2018-05-18 13:53] LABS: BANDS 3 % (0-2); LYMPHOCYTE 19 % (20-40); MONOCYTE 29 % (0-10); NEUTROPHIL 49 % (50-75); PLATELET ESTIMATE NORMAL (NORMAL); TOTAL CELLS COUNTED 100
--- NOTE | 2018-05-18 14:03 | C.PDOC ---
History Of Present Illness 67-year-old female, presents to the emergency department with complaints of right sided back pain ongoing for the past several months. Patient states she was seen by her PMD, Dr Barry, who gave pt Tylenol with Codeine, which she has been taking with minimal relief. Patient also reports her neighbor is a which, and the reason for all of her pain and suffering. She denies bladder/ bowel incontinence, nausea/vomiting, fever, chills, numbness/weakness, dizziness , or any other associated symptoms. Pt requesting juice, states she is starving. No other complaints at this time. Time Seen by Provider: 05/18/18 11:58 Chief Complaint (Nursing): Psychiatric Evaluation History Per: Patient History/Exam Limitations: no limitations Current Symptoms Are (Timing): Still Present Past Medical History Reviewed: Historical Data, Nursing Documentation, Vital Signs Vital Signs: Last Vital Signs Temp 98.4 F 05/18/18 16:14 Pulse 84 05/18/18 16:14 Resp 16 05/18/18 16:14 BP 138/76 05/18/18 16:14 Pulse Ox 100 05/18/18 17:33 - Medical History PMH: Anxiety, Arthritis, Asthma, Bipolar Disorder, Depression, Diabetes, HTN, Hypercholesterolemia, Osteoporosis, Paranoia Surgical History: Appendectomy, Coronary Stent (PCI of the LAD with stent insertion ( [facility]) in 2007 in [place].) - [facility] Procedures EXCIS DEBRIDE OF WOUND, INFECT, OR BURN (02/06/15) INTRODUCTION OF SERUM/TOX/VACCINE INTO MUSCLE, PERC APPROACH (07/01/17) VACCINATION NEC (02/06/15) Family History: States: No Known Family Hx - Social History Hx Tobacco Use: No Hx Alcohol Use: No Hx Substance Use: No - Immunization History Hx Tetanus Toxoid Vaccination: Yes Hx Influenza Vaccination: Yes Hx Pneumococcal Vaccination: Yes Review Of Systems Constitutional: Negative for: Fever, Chills Cardiovascular: Negative for: Chest Pain Respiratory: Negative for: Cough, Shortness of Breath Gastrointestinal: Negative for: Nausea, Vomiting, Abdominal Pain Musculoskeletal: Positive for: Back Pain Neurological: Negative for: Weakness, Numbness Psych: Negative for: Suicidal ideation Physical Exam - Physical Exam Appears: Non-toxic, No Acute Distress Skin: Normal Color, Warm, Dry, No Rash Head: Atraumatic, Normacephalic Eye(s): bilateral: Normal Inspection Nose: Normal Oral Mucosa: Moist Lips: Normal Appearing Neck: Normal ROM Chest: Symmetrical Cardiovascular: Rhythm Regular, No Murmur Respiratory: Normal Breath Sounds, No Accessory Muscle Use Gastrointestinal/Abdominal: Soft, No Tenderness, No Guarding, No Rebound Extremity: Normal ROM, No Deformity, No Swelling Neurological/Psych: Oriented x3, Normal Speech ED Course And Treatment - Laboratory Results Result Diagrams: 05/18/18 16:38 05/18/18 13:12 O2 Sat by Pulse Oximetry: 100 (RA) Pulse Ox Interpretation: Normal Progress - Re-Evaluation Re-evaluation Note: MRI REPORT FROM 11/27/17 REVIEWED 05/18/18 16:55 APPEARS COMFORTABLE IMPROVED COMPARED TO INITIAL. PER CRISIS, DR SANTOS @ [facility] REQUESTING TREATMENT FOR ABN UA. PT WITHOUT UTI SX. SAMPLE NOT CLEAN CATCH. PT TREATED AT REQUEST OF DR SANTOS FOR PURPOSES OF PSYCH TRANSFER. REPEAT CBC IMPROVED. MED CLEAR FOR TRANSFER TO [facility]., DR URIARTE 05/18/18 18:32 D/W CRISIS CHAS: PT REFUSING TRANSFER TO [facility]. ACCEPTED BY DR LOJA FOR ADMISSION. - Data Reviewed Data Reviewed: Lab, Old records Disposition Counseled Patient/Family Regarding: Studies Performed, Diagnosis - Disposition Disposition: HOSPITALIZED Disposition Time: 18:33 Condition: STABLE Forms: [facility] (Egyptian) - POA Present On Arrival: None - Clinical Impression Clinical Impression: Schizophrenia, Sciatica, Acute exacerbation of chronic low back pain, Abnormal urinalysis - Scribe Statement The provider has reviewed the documentation as recorded by the Scribe (Mario Venegas) All medical record entries made by the Scribe were at my direction and personally dictated by me. I have reviewed the chart and agree that the record accurately reflects my personal performance of the history, physical exam, medical decision making, and the department course for this patient. I have also personally directed, reviewed, and agree with the discharge instructions and disposition. Decision To Admit - Pt Status Changed To: Hospital Disposition Of: Inpatient - Admit Certification Admit to Inpatient:: After my assessment, the patient will require hospitalization for at least two midnights. This is because of the severity of symptoms shown, intensity of services needed, and/or the medical risk in this patient being treated as an outpatient. - InPatient: Physician Admission Certification: I certify that this patient requires 2 or more midnights of care for the following reason:: SEE NOTE - . Bed Request Type: Psychiatry Admitting Physician: Kaylen Loja Patient Diagnosis: Sciatica, Acute exacerbation of chronic low back pain, Abnormal urinalysis, Moderate major depression, single episode
[2018-05-18 14:07] LABS: SQUAMOUS EPITHIAL < 1 /hpf (0-5); URINE AMORPHOUS SEDIMENT RARE /ul (<OCC); URINE BACTERIA OCC (<OCC); URINE BILIRUBIN NEGATIVE (NEGATIVE); URINE BLOOD NEGATIVE (NEGATIVE); URINE CLARITY Hazy (Clear); URINE COLOR Yellow (YELLOW); URINE GLUCOSE (UA) NORMAL (Normal); URINE LEUKOCYTE ESTERASE 3+ Leu/uL (Negative); URINE PROTEIN 1+ mg/dL (NEGATIVE); URINE UROBILINOGEN NORMAL mg/dL (0.2-1.0)
[2018-05-18 14:47] LABS: BARBITURATES, UR NEGATIVE (NEGATIVE); BENZODIAZEPINES, UR NEGATIVE (NEGATIVE); OPIATES, UR NEGATIVE (NEGATIVE); PHENCYCLIDINE, UR NEGATIVE (NEGATIVE)
--- NOTE | 2018-05-18 14:55 | RAD ---
PROCEDURE: CHEST RADIOGRAPH, 1 VIEW HISTORY: MED CLEAR COMPARISON: Chest radiograph dated 11/16/2017. FINDINGS: LUNGS: Clear. PLEURA: No pneumothorax or pleural fluid seen. CARDIOVASCULAR: Atherosclerotic aortic calcifications. Cardiomediastinal silhouette within normal. OSSEOUS STRUCTURES: Unchanged. VISUALIZED UPPER ABDOMEN: Normal. OTHER FINDINGS: None. IMPRESSION: No active disease.
[2018-05-18 16:49] LABS: BASO % 0.1 % (0.0-2.0); EOS % 0.1 % (0.0-4.0); HEMOGLOBIN 11.7 g/dL (11.0-16.0); LYMPH # 0.5 K/uL (1.0-4.3); LYMPH % 11.2 % (20.0-40.0); MEAN CELL VOLUME 95.9 fL (81.0-99.0); MEAN CORPUSCULAR HGB CONC 33.4 g/dL (33.0-37.0); MEAN PLATELET VOLUME 9.1 fL (7.2-11.7); MONO # 0.7 K/uL (0.0-0.8); MONO % 14.8 % (0.0-10.0); NEUT # 3.3 K/uL (1.8-7.0); NEUT % 73.8 % (50.0-75.0); NRBC % 0.1 % (0.0-2.0); RBC 3.64 Mil/uL (3.80-5.20); RED CELL DISTRIBUTION WIDTH 13.9 % (11.5-14.5); WHITE BLOOD COUNT 4.5 K/uL (4.8-10.8)
--- NOTE | 2018-05-18 19:49 | CARD ---
APPROVED REPORT EKG Measurement Heart [id number] CO 160P32 [id number] <Conclusion> Normal sinus rhythm Possible Left atrial enlargement Left ventricular hypertrophy Abnormal ECG
[2018-05-18] MEDS ORDERED: Tramadol 25 mg PO PRN (21:15)
--- NOTE | 2018-05-19 01:33 | PCM.BM ---
<InaJaren - Last Filed: 05/19/18 01:31> Treatment Plan Problems - Problems identified on initial assessmt Depression Date Initiated: 05/18/18 Time Initiated: 19:45 Assessment reference: NA Status: Active Treatment assets and liabiliti Patient Assests: physically healthy, negotiates basic needs Patient Liabilities: financial problems, poor support system - Milieu Protocol Maintain good personal hygiene: daily Assist patient to perform ADL's, every shift Encourage regular showers, every shift Remind patient to perform daily oral care Maintain personal safety: every shift Educate patient to report safety concerns to staff, every shift Monitor environment for contraband/sharps Medication safety: Monitor for expected outcome, potential side effects: every shift, Assess barriers to learning: every shift, Assess readiness for medication education: every shift <Kaylen Loja - Last Filed: 05/20/18 13:22> - Diagnosis (1) Major depressive disorder, recurrent, severe with psychotic features Status: Acute Interventions: 05/20/18 13:22 * Assess/adjust medications daily and /or as needed * See patient on an individual basis 7x/week to assess symptoms of depression * Monitor for side effects & effectiveness of medications * <Deneen Wiggins - Last Filed: 05/20/18 14:03> Family Contact Family involvement: Famliy/SO not involved - Goals for Treatment Patient goals for treatment: "I need the right medication." Discharge/Continuing Care - Education Needs Education Needs: Patient Medication, Patient Coping Skills - Discharge Discharge Criteria: Tolerates medication w/o severe side effects, Reduction of target symptoms Discharge to:: Home, Jail - Treatment Team Participation Discussed with Family/SO: No Was Patient/Family/SO present at Treatment Team Meeting: Yes
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
[2018-05-19] MEDS: Tramadol 25 mg PO PRN ×2 (12:53→21:38)
[2018-05-19] MEDS ORDERED: Dextrose 50% SYRINGE Inj (50 ml) IV PRN (16:27)
[2018-05-19] MEDS ORDERED: Glucagon Recombinant 1 mg Inj IM PRN (16:27)
[2018-05-19] MEDS: (Novolog) Insulin Aspart, Recombinant 100 u/ml 10 ml vial SC SCH (16:45)
[2018-05-19] MEDS: (Lantus) Insulin Glargine, Recombinant SC SCH (21:39)
--- NOTE | 2018-05-19 22:08 | CP.PCM.CON ---
Addendum entered and electronically signed by Julissa Johnston 05/20/18 00:58 : Correction to Assessment and Plan: Patient recently follow up with PMD, Dr Barry. A1c on 05/14/18 was 7.9. Original Note: <[email or web address]. - Last Filed: 05/20/18 00:56> History of Present Illness - History of Present Illness History of Present Illness: Consult for DM Patient is a 67 year old female with a past medical history of HTN, DM, Stroke, HLD, and schizophrenia, who originally presents to the hospital for "right sided body pain". Patient was admitted to psychiatry floor for depression and schizophrenia on 05/18/18. Patient has a history of diabetes mellitus, for which medical team was consulted. Patient takes glipizide 10mg PO BID, Novolog 14 units ACTID, and Lantus 30units HS. She checks her glucose three times daily, lowest number is in the 60s, and highest number is 300+. She does not recall her average glucose reading. The patient recently follow up with her PMD, Dr Barry, last week, and was told her A1c was 7.9. While in the hospital, the patients glucose was >500 on two occasions on 05/19/18. The patient's home diabetic medications were restated on 05/19/18. The patient currently has no complaints except for "right sided body pain that she came in with" and otherwise feels well. Patient denies remaining review of systems. PMD: Dr. Barry PMHx: HTN, DM, Stroke (2000, 2003), HLD SurgHx: Cardiac stent 09/2008; Appendectomy (childhood) FamHx: Father & Sister- [place]; Mother- breast cancer SocHx: denies tobacco, alcohol, and drug use; lives alone in . Unemployed ( disabled 2/2 stroke) Allergies: PCN (unknown reaction- her mother told her she was allergic when she was a child) Medications: Glipizide 5mg PO BID, Novolog 14units ACTID, Lantus 30units HS, Pepcid 20mg PO BID, Plavix 75mg PO daily, Amlodipine 10mg PO daily, Isosorbide 30mg PO BID, Lipitor 10mg PO daily, Montelukast 10mg PO HS. Review of Systems - Constitutional Constitutional: absent: Chills, Fever, Headache - EENT Eyes: absent: Change in Vision Ears: absent: Dizziness - Cardiovascular Cardiovascular: absent: Chest Pain, Dyspnea, Edema, Palpitations - Respiratory Respiratory: absent: Cough, Dyspnea - Gastrointestinal Gastrointestinal: Abdominal Pain (right sided abdominal pain extending to groin) . absent: Constipation, Diarrhea, Nausea, Vomiting - Genitourinary Genitourinary: absent: Dysuria, Hematuria - Musculoskeletal Musculoskeletal: absent: Numbness, Tingling - Integumentary Integumentary: absent: Rash - Neurological Neurological: absent: Dizziness, Numbness, Headaches, Tingling, Weakness - Hematologic/Lymphatic Hematologic: absent: Easy Bleeding, Easy Bruising Past Patient History - Infectious Disease Hx of Infectious Diseases: None - Tetanus Immunizations Tetanus Immunization: Unknown - Past Medical History & Family History Past Medical History?: Yes - Past Social History Smoking Status: Never Smoked - CARDIAC Hx Hypercholesterolemia: Yes Hx Hypertension: Yes - PULMONARY Hx Asthma: Yes - NEUROLOGICAL HX Cerebrovascular Accident: No Hx Seizures: No - HEENT Hx HEENT Problems: Yes Other/Comment: wear eyeglasses - RENAL Hx Chronic Kidney Disease: No - ENDOCRINE/METABOLIC Hx Diabetes Mellitus Type 1: Yes - HEMATOLOGICAL/ONCOLOGICAL Hx Cancer: No Hx Human Immunodeficiency Virus (HIV): No - INTEGUMENTARY Hx Dermatological Problems: Yes Other/Comment: Hx skin rash - MUSCULOSKELETAL/RHEUMATOLOGICAL Hx Arthritis: Yes Hx Osteoporosis: Yes - GASTROINTESTINAL Hx Gastrointestinal Disorders: No - GENITOURINARY/GYNECOLOGICAL Hx Sexually Transmitted Disorders: No - PSYCHIATRIC Hx Substance Use: No - SURGICAL HISTORY Hx Appendectomy: Yes Hx Coronary Stent: Yes (PCI of the LAD with stent insertion ( [facility]) in 2007 in [place].) - ANESTHESIA Hx Anesthesia: Yes Hx Anesthesia Reactions: No Hx Malignant Hyperthermia: No Meds Allergies/Adverse Reactions: Allergies Allergy/AdvReac Type Severity Reaction Status Date / Time Penicillins Allergy RASH Verified 11/23/17 12:08 - Medications Medications: Current Medications Amlodipine Besylate (Norvasc) 10 mg PO DAILY [facility] Last Admin: 05/19/18 12:52 Dose: 10 mg Benztropine Mesylate (Cogentin) 1 mg PO BID [facility] Last Admin: 05/19/18 17:54 Dose: 1 mg Bupropion HCl (Wellbutrin) 100 mg PO DAILY [facility] Last Admin: 05/19/18 12:49 Dose: 100 mg Clopidogrel Bisulfate (Plavix) 75 mg PO DAILY [facility] Last Admin: 05/19/18 12:48 Dose: 75 mg Dextrose (Dextrose 50% Inj) 0 ml IV STAT PRN; Protocol PRN Reason: Hypoglycemia Protocol Dextrose (Glutose 15) 0 gm PO ONCE PRN; Protocol PRN Reason: Hypoglycemia Protocol Docusate Sodium (Colace) 100 mg PO BID [facility] Last Admin: 05/19/18 17:54 Dose: 100 mg Famotidine (Pepcid) 20 mg PO BID [facility] Last Admin: 05/19/18 17:54 Dose: 20 mg Gabapentin (Neurontin) 300 mg PO BID [facility] Last Admin: 05/19/18 17:54 Dose: 300 mg Glipizide (Glucotrol) 5 mg PO BID [facility] Last Admin: 05/19/18 17:54 Dose: 5 mg Glucagon (Glucagen Diagnostic Kit) 0 mg IM STAT PRN; Protocol PRN Reason: Hypoglycemia Protocol Haloperidol (Haldol) 5 mg PO BID [facility] Last Admin: 05/19/18 17:54 Dose: 5 mg Dextrose (Dextrose 5% In Water 1000 Ml) 1,000 mls @ 0 mls/hr IV .Q0M PRN; Protocol; Per Protocol PRN Reason: Hypoglycemia Protocol Ibuprofen (Motrin Tab) 600 mg PO Q6H PRN PRN Reason: Pain, moderate (4-7) Last Admin: 05/19/18 09:06 Dose: 600 mg Insulin Aspart (Novolog) 14 unit SC ACTID [facility] Last Admin: 05/19/18 16:45 Dose: 14 units Insulin Glargine (Lantus) 30 unit SC HS [facility] Last Admin: 05/19/18 21:39 Dose: 30 units Isosorbide Mononitrate (Imdur Er) 30 mg PO BID [facility] Last Admin: 05/19/18 17:54 Dose: 30 mg Metoprolol Tartrate (Lopressor) 12.5 mg PO DAILY [facility] Last Admin: 05/19/18 12:49 Dose: 12.5 mg Montelukast Sodium (Singulair) 10 mg PO HS [facility] Last Admin: 05/19/18 21:39 Dose: 10 mg Tramadol HCl (Ultram) 25 mg PO TID PRN PRN Reason: Pain, Mild (1-3) Last Admin: 05/19/18 21:38 Dose: 25 mg Physical Exam - Constitutional Appears: No Acute Distress - Head Exam Head Exam: ATRAUMATIC, NORMAL INSPECTION, NORMOCEPHALIC - Eye Exam Eye Exam: EOMI, Normal appearance - ENT Exam ENT Exam: Mucous Membranes Moist - Respiratory Exam Respiratory Exam: NORMAL BREATHING PATTERN. absent: Rales, Rhonchi, Wheezes, Respiratory Distress - Cardiovascular Exam Cardiovascular Exam: REGULAR RHYTHM, +S1, +S2, Systolic Murmur - GI/Abdominal Exam GI & Abdominal Exam: Normal Bowel Sounds, Soft, Tenderness (right sided) - Extremities Exam Extremities exam: Positive for: normal capillary refill, pedal pulses present. Negative for: pedal edema, tenderness Additional comments: PVD skin color changes - Neurological Exam Neurological exam: Alert, CN II-XII Intact, Oriented x3 - Psychiatric Exam Psychiatric exam: Normal Affect, Normal Mood - Skin Skin Exam: Dry, Intact, Warm Results - Vital Signs Recent Vital Signs: Last Vital Signs Temp 98.1 F 05/19/18 08:00 Pulse 70 05/19/18 15:59 Resp 20 05/19/18 08:00 BP 163/77 H 05/19/18 15:59 Pulse Ox 96 05/18/18 18:55 - Labs Result Diagrams: 05/18/18 16:38 05/18/18 13:12 Labs: Laboratory Results - last 24 hr 05/19/18 05/19/18 05/19/18 07:22 16:19 18:22 POC Glucose (mg/dL) 325 H > 500 H* > 500 H* 05/19/18 05/19/18 19:17 21:04 POC Glucose (mg/dL) 391 H 285 H Assessment & Plan (1) Diabetes mellitus Assessment and Plan: History of DM (diagnosed 20+ years ago) Patient recently follow up with PMD, Dr Booth. A1c on 05/14/18 was 7.9. Continue home medications: Novolog 14unites ACTID, Lantus 30units HS, Glipizide 5mg PO BID - Home medications were restarted on 05/19/18. Continue to monitor blood glucose Accuchecks Hypoglycemic protocol prn Diabetic diet Status: Acute <Dontrell Michael P - Last Filed: 05/20/18 08:16> Meds - Medications Medications: Current Medications Amlodipine Besylate (Norvasc) 10 mg PO DAILY [facility] Last Admin: 05/19/18 12:52 Dose: 10 mg Benztropine Mesylate (Cogentin) 1 mg PO BID [facility] Last Admin: 05/19/18 17:54 Dose: 1 mg Bupropion HCl (Wellbutrin) 100 mg PO DAILY [facility] Last Admin: 05/19/18 12:49 Dose: 100 mg Clopidogrel Bisulfate (Plavix) 75 mg PO DAILY [facility] Last Admin: 05/19/18 12:48 Dose: 75 mg Dextrose (Dextrose 50% Inj) 0 ml IV STAT PRN; Protocol PRN Reason: Hypoglycemia Protocol Dextrose (Glutose 15) 0 gm PO ONCE PRN; Protocol PRN Reason: Hypoglycemia Protocol Docusate Sodium (Colace) 100 mg PO BID [facility] Last Admin: 05/19/18 17:54 Dose: 100 mg Famotidine (Pepcid) 20 mg PO BID [facility] Last Admin: 05/19/18 17:54 Dose: 20 mg Gabapentin (Neurontin) 300 mg PO BID [facility] Last Admin: 05/19/18 17:54 Dose: 300 mg Glipizide (Glucotrol) 5 mg PO BID [facility] Last Admin: 05/19/18 17:54 Dose: 5 mg Glucagon (Glucagen Diagnostic Kit) 0 mg IM STAT PRN; Protocol PRN Reason: Hypoglycemia Protocol Haloperidol (Haldol) 5 mg PO BID [facility] Last Admin: 05/19/18 17:54 Dose: 5 mg Dextrose (Dextrose 5% In Water 1000 Ml) 1,000 mls @ 0 mls/hr IV .Q0M PRN; Protocol; Per Protocol PRN Reason: Hypoglycemia Protocol Ibuprofen (Motrin Tab) 600 mg PO Q6H PRN PRN Reason: Pain, moderate (4-7) Last Admin: 05/19/18 09:06 Dose: 600 mg Insulin Aspart (Novolog) 14 unit SC ACTID [facility] Last Admin: 05/20/18 08:04 Dose: 14 units Insulin Glargine (Lantus) 30 unit SC HS [facility] Last Admin: 05/19/18 21:39 Dose: 30 units Isosorbide Mononitrate (Imdur Er) 30 mg PO BID [facility] Last Admin: 05/19/18 17:54 Dose: 30 mg Metoprolol Tartrate (Lopressor) 12.5 mg PO DAILY [facility] Last Admin: 05/19/18 12:49 Dose: 12.5 mg Montelukast Sodium (Singulair) 10 mg PO HS [facility] Last Admin: 05/19/18 21:39 Dose: 10 mg Tramadol HCl (Ultram) 25 mg PO TID PRN PRN Reason: Pain, Mild (1-3) Last Admin: 05/20/18 04:16 Dose: 25 mg Results - Vital Signs Recent Vital Signs: Last Vital Signs Temp 97.7 F 05/20/18 06:38 Pulse 73 05/20/18 06:38 Resp 18 05/20/18 06:38 BP 126/72 05/20/18 06:38 Pulse Ox 96 05/18/18 18:55 - Labs Result Diagrams: 05/18/18 16:38 05/20/18 07:33 Labs: Laboratory Results - last 24 hr 05/19/18 05/19/18 05/19/18 16:19 18:22 19:17 Sodium Potassium Chloride Carbon Dioxide Anion Gap BUN Creatinine Est GFR ( Amer) Est GFR (Non-Af Amer) POC Glucose (mg/dL) > 500 H* > 500 H* 391 H Random Glucose Calcium Total Bilirubin AST ALT Alkaline Phosphatase Total Protein Albumin Globulin Albumin/Globulin Ratio Triglycerides Cholesterol LDL Cholesterol Direct HDL Cholesterol 05/19/18 05/20/18 05/20/18 21:04 07:20 07:33 Sodium 138 Potassium 4.1 Chloride 104 Carbon Dioxide 22 Anion Gap 15 BUN 25 H Creatinine 0.9 Est GFR ( Amer) > 60 Est GFR (Non-Af Amer) > 60 POC Glucose (mg/dL) 285 H 239 H Random Glucose 249 H Calcium 9.8 Total Bilirubin 0.6 AST 14 D ALT 24 Alkaline Phosphatase 115 Total Protein 6.3 Albumin 3.4 L D Globulin 2.9 Albumin/Globulin Ratio 1.2 Triglycerides 83 Cholesterol 107 LDL Cholesterol Direct 31 HDL Cholesterol 41 Attending/Attestation - Attestation I have personally seen and examined this patient.: Yes I have fully participated in the care of the patient.: Yes I have reviewed all pertinent clinical information: Yes Notes (Text): 05/20/18 08:13 Hyperglycemia likely form combination of poor compliance with food in the unit, psych meds. Patient counselled about the same, continued home meds, recommend patient be off of OHA and be on insulin long and short acting, will help to account of the meds to the blood glucose levels, which will get confusing with OHA. PMD does come in the hospital will ask primary team here psychiatrist to call the PMD.
[2018-05-20] MEDS: Tramadol 25 mg PO PRN (04:16)
[2018-05-20 07:56] LABS: ALB/GLOB RATIO 1.2 (1.0-2.1); ALBUMIN 3.4 g/dL (3.5-5.0); ALT/SGPT 24 U/L (9-52); AST/SGOT 14 U/L (14-36); BLOOD UREA NITROGEN 25 mg/dL (7-17); CALCIUM 9.8 mg/dl (8.6-10.4); GFR AFRICAN-AMERICAN > 60; GFR NON-AFRICAN AMERICAN > 60; HDL CHOLESTEROL 41 mg/dL (30-70)
[2018-05-20] MEDS: (Novolog) Insulin Aspart, Recombinant 100 u/ml 10 ml vial SC SCH ×3 (08:04→17:01)
[2018-05-20 08:06] LABS: LDL CHOLESTEROL 31 mg/dL (0-129)
--- NOTE | 2018-05-20 10:28 | CP.PCM.PCO ---
Physician Communication Note - Physician Communication Note Physician Communication Note: Please see above
--- NOTE | 2018-05-20 12:35 | PCM.PYCHPN ---
Psychiatric Progress Note - Psychiatric Progress Note Patient seen today, length of contact: 15 min Patient Chief Complaint: Some people are working against me.' Problems Identified/Issues Discussed: Patient seen and evaluated, chart reviewed and discussed with the nurse. Patient reports irritability and agitation. She remained isolated and withdrawn. She reports of hallucinations and persecutory delusions. Patient still appears disorganized and internally preoccupied. She is taking medications and denies any side effects Symptoms are improving but she needs more time for stabilization. Supportive therapy and psychoeducation were given. Medication Change: Yes Medical Record Reviewed: Yes Mental Status Examination - Cognitive Function Orientation: Person, Place, Situation, Time Memory: Intact Attention: Poor Concentration: Poor Association: Loose Fund of Knowledge: Poor - Mood Mood: Depressed, Anxious - Affect Affect: Constricted, Depressed - Speech Speech: Soft - Formal Thought Process Formal Thought Process: Hallucinations, Delusions, Paranoia, Loosening of associations - Suicidal Ideation Suicidal Ideation: No - Homicidal Ideation Homicidal Ideation: No Goal/Treatment Plan - Goal/Treatment Plan Need for Continued Stay: Severe depression anxiety, Severe functional impairment Progress Toward Problem(s) and Goals/Treatment Plan: Major depressive disorder recurrent severe with psychotic features r/o Schizoaffective disorder depressive type -Psychotherapy -Supportive therapy, group therapy, individual therapy -Atarax 25 mg PO Q6 prn -Trazodone 50 mg PO QHS prn -Wellbutrin 100 mg PO Daily -Haldol 5 mg PO BID -Cogentin 1 mg PO BID -Neurontin 300 mg PO BID -Encourage compliance with meds -Refer to outpatient program DM -Continue prescribed medications -Glipizide, insulin -Monitor side effects HTN -Continue prescribed medications -Amlodipine, Metoprolol, Clopidogril, Imdur -Monitor side effects Back pain due to lumber compression -Continue prescribed medications -Tremadol -Monitor side effects - Smoking Cessation Smoking Cessation Initiated: No
[2018-05-20] MEDS: (Lantus) Insulin Glargine, Recombinant SC SCH (21:57)
[2018-05-21] MEDS: Tramadol 25 mg PO PRN ×2 (02:38→16:05)
[2018-05-21] MEDS: (Novolog) Insulin Aspart, Recombinant 100 u/ml 10 ml vial SC SCH ×3 (08:12→16:33)
--- NOTE | 2018-05-21 16:58 | PCM.PYCHPN ---
Psychiatric Progress Note - Psychiatric Progress Note Patient seen today, length of contact: 15 min Patient Chief Complaint: Some people are working against me.' Problems Identified/Issues Discussed: Ms. Phoenix still has pain on the right side of her body. She has developed a sore throat which she requested lozenges for, saying, "it is hard for me to swallow if I have a sore throat." Her mood is good, but she still does not have much of an appetite. She says she sleeps too much. She participated in group activities. She also complained of a recurring bloody nose from picking. Her bowel movements are white. There was no mention of further delusions. Medication Change: Yes Medical Record Reviewed: Yes Mental Status Examination - Cognitive Function Orientation: Person, Place, Situation, Time Memory: Intact Attention: Poor Concentration: Poor Association: Loose Fund of Knowledge: Poor - Mood Mood: Depressed, Anxious - Affect Affect: Constricted, Depressed - Speech Speech: Soft - Formal Thought Process Formal Thought Process: Hallucinations, Delusions, Paranoia, Loosening of associations - Suicidal Ideation Suicidal Ideation: No - Homicidal Ideation Homicidal Ideation: No Goal/Treatment Plan - Goal/Treatment Plan Need for Continued Stay: Severe depression anxiety, Severe functional impairment Progress Toward Problem(s) and Goals/Treatment Plan: Major depressive disorder recurrent severe with psychotic features r/o Schizoaffective disorder depressive type -Psychotherapy -Supportive therapy, group therapy, individual therapy -Atarax 25 mg PO Q6 prn -Trazodone 50 mg PO QHS prn -Wellbutrin 100 mg PO Daily -Haldol 5 mg PO BID -Cogentin 1 mg PO BID -Neurontin 300 mg PO BID -Encourage compliance with meds -Refer to outpatient program DM -Continue prescribed medications -Glipizide, insulin -Monitor side effects HTN -Continue prescribed medications -Amlodipine, Metoprolol, Clopidogril, Imdur -Monitor side effects Back pain due to lumber compression -Continue prescribed medications -Tremadol -Monitor side effects
[2018-05-21] MEDS: (Lantus) Insulin Glargine, Recombinant SC SCH (21:36)
--- NOTE | 2018-05-21 22:59 | CP.PCM.PCO ---
Physician Communication Note - Physician Communication Note Physician Communication Note: Please evaluate and give recommendation for high glucose level Thanks.
[2018-05-21] MEDS ORDERED: (Novolog) Insulin Aspart, Recombinant 100 u/ml 10 ml vial SC ONE (23:00)
[2018-05-22] MEDS: Tramadol 25 mg PO PRN ×2 (05:46→17:03)
[2018-05-22] MEDS: (Novolog) Insulin Aspart, Recombinant 100 u/ml 10 ml vial SC SCH ×7 (07:45→21:22)
--- NOTE | 2018-05-22 14:43 | PCM.PYCHPN ---
Psychiatric Progress Note - Psychiatric Progress Note Patient seen today, length of contact: 15 min Patient Chief Complaint: Some people are working against me.' Problems Identified/Issues Discussed: Ms. Phoenix said she is still in unbearable pain. Tramodol has made it better but moving from lying to sitting up make the pain worse. Sleep is good, interest level good, energy good, appetite is better. She hasn't had a bowel movement. She has no suicidal/homicidal thoughts. She does not have vivid dreams. Medication Change: Yes Medical Record Reviewed: Yes Mental Status Examination - Cognitive Function Orientation: Person, Place, Situation, Time Memory: Intact Attention: Poor Concentration: Poor Association: Loose Fund of Knowledge: Poor - Mood Mood: Depressed, Anxious - Affect Affect: Constricted, Depressed - Speech Speech: Soft - Formal Thought Process Formal Thought Process: Hallucinations, Delusions, Paranoia, Loosening of associations - Suicidal Ideation Suicidal Ideation: No - Homicidal Ideation Homicidal Ideation: No Goal/Treatment Plan - Goal/Treatment Plan Need for Continued Stay: Severe depression anxiety, Severe functional impairment Progress Toward Problem(s) and Goals/Treatment Plan: Major depressive disorder recurrent severe with psychotic features r/o Schizoaffective disorder depressive type -Psychotherapy -Supportive therapy, group therapy, individual therapy -Atarax 25 mg PO Q6 prn -Trazodone 50 mg PO QHS prn -Wellbutrin 100 mg PO Daily -Haldol 5 mg PO BID -Cogentin 1 mg PO BID -Neurontin 300 mg PO BID -Encourage compliance with meds -Refer to outpatient program DM -Continue prescribed medications -Glipizide, insulin -Monitor side effects HTN -Continue prescribed medications -Amlodipine, Metoprolol, Clopidogril, Imdur -Monitor side effects Back pain due to lumber compression -Continue prescribed medications -Tremadol -Monitor side effects
--- NOTE | 2018-05-22 16:31 | CP.PCM.CON ---
History of Present Illness - History of Present Illness History of Present Illness: this patient is known to me for a few number of years because of NIDDM , hypertension, and hyperlipedemia. She however developed schizophrenia, with paranoid delusions. She had been under the care of a psychiatrist but claims that she did not get along with him. Before barbara was admitted into the hospital she claims that people had been causing her pain at the sides. She also has CAD and hypertension. Review of Systems - Review of Systems Systems not reviewed;Unavailable: Acuity of Condition - Gastrointestinal Gastrointestinal: Abdominal Pain - Menstruation Menstruation: Post Menopausal - Musculoskeletal Musculoskeletal: Arthralgias, Back Pain, Limited Range of Motion - Psychiatric Psychiatric: Anxiety, Depression, Paranoia Past Patient History - Infectious Disease Hx of Infectious Diseases: None - Tetanus Immunizations Tetanus Immunization: Unknown - Past Medical History & Family History Past Medical History?: Yes - Past Social History Smoking Status: Never Smoked Chewing Tobacco Use: No Cigar Use: No Alcohol: None Home Situation {Lives}: Alone - CARDIAC Hx Cardiac Disorders: Yes Hx Hypercholesterolemia: Yes Hx Hypertension: Yes - PULMONARY Hx Asthma: Yes - NEUROLOGICAL HX Cerebrovascular Accident: No Hx Seizures: No - HEENT Hx HEENT Problems: Yes Other/Comment: wear eyeglasses - RENAL Hx Chronic Kidney Disease: No - ENDOCRINE/METABOLIC Hx Diabetes Mellitus Type 1: Yes Hx Diabetes Mellitus Type 2: Yes - HEMATOLOGICAL/ONCOLOGICAL Hx Cancer: No Hx Human Immunodeficiency Virus (HIV): No - INTEGUMENTARY Hx Dermatological Problems: Yes Other/Comment: Hx skin rash - MUSCULOSKELETAL/RHEUMATOLOGICAL Hx Arthritis: Yes Hx Osteoporosis: Yes - GASTROINTESTINAL Hx Gastrointestinal Disorders: Yes - GENITOURINARY/GYNECOLOGICAL Hx Sexually Transmitted Disorders: No - PSYCHIATRIC Hx Depression: Yes Hx Paranoia: Yes Hx Schizophrenia: Yes Hx Substance Use: No - SURGICAL HISTORY Hx Surgeries: Yes Hx Appendectomy: Yes Hx Coronary Stent: Yes (PCI of the LAD with stent insertion ( [facility]) in 2007 in [place].) - ANESTHESIA Hx Anesthesia: Yes Hx Anesthesia Reactions: No Hx Malignant Hyperthermia: No Meds Allergies/Adverse Reactions: Allergies Allergy/AdvReac Type Severity Reaction Status Date / Time Penicillins Allergy RASH Verified 11/23/17 12:08 - Medications Medications: Current Medications Amlodipine Besylate (Norvasc) 10 mg PO DAILY [facility] Last Admin: 05/22/18 09:03 Dose: 10 mg Benztropine Mesylate (Cogentin) 1 mg PO BID [facility] Last Admin: 05/22/18 09:01 Dose: 1 mg Bupropion HCl (Wellbutrin) 100 mg PO DAILY [facility] Last Admin: 05/22/18 09:01 Dose: 100 mg Clopidogrel Bisulfate (Plavix) 75 mg PO DAILY [facility] Last Admin: 05/22/18 09:01 Dose: 75 mg Docusate Sodium (Colace) 100 mg PO BID [facility] Last Admin: 05/22/18 09:01 Dose: 100 mg Famotidine (Pepcid) 20 mg PO BID [facility] Last Admin: 05/22/18 09:01 Dose: 20 mg Gabapentin (Neurontin) 300 mg PO BID [facility] Last Admin: 05/22/18 09:00 Dose: 300 mg Glipizide (Glucotrol) 5 mg PO BID [facility] Last Admin: 05/22/18 09:01 Dose: 5 mg Haloperidol (Haldol) 5 mg PO BID [facility] Last Admin: 05/22/18 09:01 Dose: 5 mg Ibuprofen (Motrin Tab) 600 mg PO Q6H PRN PRN Reason: Pain, moderate (4-7) Last Admin: 05/21/18 17:26 Dose: 600 mg Insulin Aspart (Novolog) 14 unit SC ACTID [facility] Last Admin: 05/22/18 11:40 Dose: Not Given Insulin Aspart (Novolog) 0 unit SC ACHS [facility] PRN Reason: Protocol Last Admin: 05/22/18 11:38 Dose: Not Given Insulin Glargine (Lantus) 30 unit SC [facility] Last Admin: 05/21/18 21:36 Dose: 30 units Isosorbide Mononitrate (Imdur Er) 30 mg PO BID [facility] Last Admin: 05/22/18 09:01 Dose: 30 mg Metoprolol Tartrate (Lopressor) 12.5 mg PO DAILY [facility] Last Admin: 05/22/18 09:03 Dose: 12.5 mg Montelukast Sodium (Singulair) 10 mg PO [facility] Last Admin: 05/21/18 21:36 Dose: 10 mg Tramadol HCl (Ultram) 25 mg PO TID PRN PRN Reason: Pain, Mild (1-3) Last Admin: 05/22/18 05:46 Dose: 25 mg Physical Exam - Constitutional Appears: No Acute Distress - Head Exam Head Exam: ATRAUMATIC, NORMAL INSPECTION, NORMOCEPHALIC - Eye Exam Eye Exam: EOMI, Normal appearance - ENT Exam ENT Exam: Mucous Membranes Moist - Neck Exam Neck exam: Positive for: Full Rom, Normal Inspection - Respiratory Exam Respiratory Exam: Clear to Auscultation Bilateral, NORMAL BREATHING PATTERN - Cardiovascular Exam Cardiovascular Exam: REGULAR RHYTHM, +S1, +S2 - GI/Abdominal Exam GI & Abdominal Exam: Normal Bowel Sounds, Soft - Rectal Exam Rectal Exam: Deferred - Back Exam Back exam: FULL ROM - Neurological Exam Neurological exam: Alert, Oriented x3, Reflexes Normal - Psychiatric Exam Psychiatric exam: Depressed - Skin Skin Exam: Intact, Petechiae Results - Vital Signs Recent Vital Signs: Last Vital Signs Temp 98.2 F 05/22/18 06:42 Pulse 75 05/22/18 16:03 Resp 18 05/22/18 06:42 BP 159/78 H 05/22/18 16:03 Pulse Ox 96 05/18/18 18:55 - Labs Result Diagrams: 05/18/18 16:38 05/20/18 07:33 Labs: Laboratory Results - last 24 hr 05/21/18 05/21/18 05/22/18 21:25 22:35 02:25 POC Glucose (mg/dL) 463 H* 500 H* 148 H 05/22/18 05/22/18 05/22/18 05:41 07:29 11:35 POC Glucose (mg/dL) 84 126 H 100 Assessment & Plan (1) Sciatica Status: Acute (2) CAD (coronary artery disease) Status: Chronic (3) Type 2 diabetes mellitus Status: Chronic (4) Hypertension Status: Chronic - Assessment and Plan (Free Text) Assessment: Assessment: NIDDM Hypertension CAD Back pains with sciatica. Schizophrenia. Plan: Plan: Continue hypotensive medication, Isosorbide. Lantus and novolog coiverage. - Date & Time Date: 05/22/18 Time: 16:46
[2018-05-22] MEDS: (Lantus) Insulin Glargine, Recombinant SC SCH (21:25)
[2018-05-23 07:07] LABS: BASO % 0.2 % (0.0-2.0); EOS % 0.2 % (0.0-4.0); HEMOGLOBIN 11.6 g/dL (11.0-16.0); LYMPH # 1.4 K/uL (1.0-4.3); LYMPH % 29.5 % (20.0-40.0); MEAN CELL VOLUME 95.6 fL (81.0-99.0); MEAN CORPUSCULAR HEMOGLOBIN 32.5 pg (27.0-31.0); MEAN PLATELET VOLUME 9.8 fL (7.2-11.7); MONO # 1.1 K/uL (0.0-0.8); MONO % 23.1 % (0.0-10.0); NEUT # 2.2 K/uL (1.8-7.0); PLATELET COUNT 161 K/uL (130-400); RBC 3.57 Mil/uL (3.80-5.20); RED CELL DISTRIBUTION WIDTH 13.4 % (11.5-14.5); WHITE BLOOD COUNT 4.8 K/uL (4.8-10.8)
[2018-05-23 07:44] LABS: FREE T4 1.62 ng/dL (0.78-2.19)
[2018-05-23] MEDS: (Novolog) Insulin Aspart, Recombinant 100 u/ml 10 ml vial SC SCH ×7 (07:51→22:24)
[2018-05-23 08:16] LABS: EOSINOPHIL 1 % (0-4); LYMPHOCYTE 26 % (20-40); MONOCYTE 23 % (0-10); NEUTROPHIL 50 % (50-75); TOTAL CELLS COUNTED 100
[2018-05-23 08:17] LABS: ANISOCYTOSIS SLIGHT; HYPOCHROMIC SLIGHT; PLATELET ESTIMATE NORMAL (NORMAL)
[2018-05-23 08:18] LABS: POLYCHROMIC SLIGHT
[2018-05-23 08:59] LABS: ALB/GLOB RATIO 1.2 (1.0-2.1); ALT/SGPT 14 U/L (9-52); AST/SGOT 20 U/L (14-36); BLOOD UREA NITROGEN 25 mg/dL (7-17); CALCIUM 10.9 mg/dl (8.6-10.4); GFR AFRICAN-AMERICAN > 60; GFR NON-AFRICAN AMERICAN > 60; HDL CHOLESTEROL 50 mg/dL (30-70)
[2018-05-23 09:02] LABS: SQUAMOUS EPITHIAL 1 /hpf (0-5); URINE BILIRUBIN NEGATIVE (NEGATIVE); URINE BLOOD NEGATIVE (NEGATIVE); URINE CLARITY Clear (Clear); URINE COLOR Yellow (YELLOW); URINE GLUCOSE (UA) 2+ mg/dL (Normal); URINE LEUKOCYTE ESTERASE NEG Leu/uL (Negative); URINE PROTEIN NEGATIVE (NEGATIVE); URINE UROBILINOGEN NORMAL mg/dL (0.2-1.0)
[2018-05-23 09:06] LABS: LDL CHOLESTEROL 31 mg/dL (0-129)
[2018-05-23] MEDS: Tramadol 25 mg PO PRN ×3 (10:41→22:36)
[2018-05-23] MEDS: (Lantus) Insulin Glargine, Recombinant SC SCH (22:32)
[2018-05-24] MEDS: Tramadol 25 mg PO PRN (05:56)
[2018-05-24] MEDS: (Novolog) Insulin Aspart, Recombinant 100 u/ml 10 ml vial SC SCH ×7 (08:30→22:33)
--- NOTE | 2018-05-24 19:56 | CP.PCM.PN ---
Subjective - Date & Time of Evaluation Date of Evaluation: 05/24/18 Time of Evaluation: 19:53 - Subjective Subjective: patient still c/o pain at the left hip. On Tramadol 25 mgm and motrin. Will d/c motrin and cotinue Tramadol. Sugar had been fluctuating due to the patient drinking juices. Patient's delusions and haullucinations lesser degree. Objective - Vital Signs/Intake and Output Vital Signs (last 24 hours): Temp Pulse Resp BP Pulse Ox 97.6 F 72 18 147/70 96 05/24/18 06:34 05/24/18 17:05 05/24/18 06:34 05/24/18 17:05 05/18/18 18:55 - Medications Medications: Current Medications Amlodipine Besylate (Norvasc) 10 mg PO DAILY [facility] Last Admin: 05/24/18 09:10 Dose: 10 mg Benztropine Mesylate (Cogentin) 1 mg PO BID [facility] Last Admin: 05/24/18 17:20 Dose: 1 mg Clopidogrel Bisulfate (Plavix) 75 mg PO DAILY [facility] Last Admin: 05/24/18 09:09 Dose: 75 mg Docusate Sodium (Colace) 100 mg PO BID [facility] Last Admin: 05/24/18 17:17 Dose: 100 mg Famotidine (Pepcid) 20 mg PO BID [facility] Last Admin: 05/24/18 17:17 Dose: 20 mg Gabapentin (Neurontin) 300 mg PO BID [facility] Last Admin: 05/24/18 17:17 Dose: 300 mg Glipizide (Glucotrol) 5 mg PO BID [facility] Last Admin: 05/24/18 17:17 Dose: 5 mg Haloperidol (Haldol) 5 mg PO BID [facility] Last Admin: 05/24/18 17:17 Dose: 5 mg Ibuprofen (Motrin Tab) 600 mg PO Q6H PRN PRN Reason: Pain, moderate (4-7) Last Admin: 05/24/18 18:08 Dose: 600 mg Insulin Aspart (Novolog) 14 unit SC ACTID [facility] Last Admin: 05/24/18 17:16 Dose: 14 units Insulin Aspart (Novolog) 0 unit SC ACHS [facility] PRN Reason: Protocol Last Admin: 05/24/18 17:17 Dose: Not Given Insulin Glargine (Lantus) 30 unit SC HS [facility] Last Admin: 05/23/18 22:32 Dose: 30 units Isosorbide Mononitrate (Imdur Er) 30 mg PO BID [facility] Last Admin: 05/24/18 17:17 Dose: 30 mg Metoprolol Tartrate (Lopressor) 12.5 mg PO DAILY [facility] Last Admin: 05/24/18 09:09 Dose: 12.5 mg Montelukast Sodium (Singulair) 10 mg PO [facility] Last Admin: 05/23/18 22:33 Dose: 10 mg Tramadol HCl (Ultram) 25 mg PO TID PRN PRN Reason: Pain, Mild (1-3) Last Admin: 05/24/18 05:56 Dose: 25 mg - Labs Labs: 05/23/18 07:00 05/23/18 07:00 - Constitutional Appears: No Acute Distress - Head Exam Head Exam: ATRAUMATIC, NORMAL INSPECTION, NORMOCEPHALIC - Eye Exam Pupil Exam: PERRL - ENT Exam ENT Exam: Mucous Membranes Moist - Neck Exam Neck Exam: Full ROM - Respiratory Exam Respiratory Exam: Clear to Ausculation Bilateral, NORMAL BREATHING PATTERN - Cardiovascular Exam Cardiovascular Exam: REGULAR RHYTHM, +S1, +S2 - GI/Abdominal Exam GI & Abdominal Exam: Soft, Normal Bowel Sounds - Rectal Exam Rectal Exam: Deferred - Extremities Exam Extremities Exam: Full ROM, Normal Inspection - Back Exam Back Exam: Full ROM, NORMAL INSPECTION - Neurological Exam Neurological Exam: Alert, Awake, Oriented x3 - Skin Skin Exam: Dry, Intact, Warm Assessment and Plan (1) Sciatica Status: Acute (2) CAD (coronary artery disease) Status: Chronic (3) Type 2 diabetes mellitus Status: Chronic (4) Hypertension Status: Chronic - Assessment and Plan (Free Text) Assessment: Medical assessment: CAD. NIDDM Obesity. HTN Plan: Plan: Continue present treatment. Give Tramadol cautiously. Disconitnue Motrin.
[2018-05-24] MEDS: (Lantus) Insulin Glargine, Recombinant SC SCH (22:32)
[2018-05-25] MEDS: (Novolog) Insulin Aspart, Recombinant 100 u/ml 10 ml vial SC SCH ×8 (08:20→21:06)
--- NOTE | 2018-05-25 15:05 | PCM.PYCHPN ---
Psychiatric Progress Note - Psychiatric Progress Note Patient seen today, length of contact: 15 min Patient Chief Complaint: Some people are working against me.' Problems Identified/Issues Discussed: Ms. Phoenix reports that her pain is unbearable and that it wakes her up at night. Otherwise, her appetite is better, sleep is good, maintains interest and concentration, and psychomotor functioning are unchanged. She continues to urinate on herself, and she has not had a bowel movement over the weekend. She said that urinating herself is not new, and it has been going on for a while. She does not have hallucinations. She does not have suicidal or homicidal thoughts. She is looking forward to going back to returning to her life and discharge. She mentioned that she keeps her door unlocked at all times, day and night. This is in the event she needs medical help. Medication Change: Yes Medical Record Reviewed: Yes Mental Status Examination - Cognitive Function Orientation: Person, Place, Situation, Time Memory: Intact Attention: Poor Concentration: Poor Association: Loose Fund of Knowledge: Poor - Mood Mood: Depressed, Anxious - Affect Affect: Constricted, Depressed - Speech Speech: Soft - Formal Thought Process Formal Thought Process: Hallucinations, Delusions, Paranoia, Loosening of associations - Suicidal Ideation Suicidal Ideation: No - Homicidal Ideation Homicidal Ideation: No Goal/Treatment Plan - Goal/Treatment Plan Need for Continued Stay: Severe depression anxiety, Severe functional impairment Progress Toward Problem(s) and Goals/Treatment Plan: Major depressive disorder recurrent severe with psychotic features r/o Schizoaffective disorder depressive type -Psychotherapy -Supportive therapy, group therapy, individual therapy -Atarax 25 mg PO Q6 prn -Trazodone 50 mg PO QHS prn -Wellbutrin 100 mg PO Daily -Haldol 5 mg PO BID -Cogentin 1 mg PO BID -Neurontin 300 mg PO BID -Encourage compliance with meds -Refer to outpatient program DM -Continue prescribed medications -Glipizide, insulin -Monitor side effects HTN -Continue prescribed medications -Amlodipine, Metoprolol, Clopidogril, Imdur -Monitor side effects Back pain due to lumber compression -Continue prescribed medications -Tremadol -Monitor side effects
[2018-05-25] MEDS: Tramadol 25 mg PO PRN (16:26)
[2018-05-25] MEDS: (Lantus) Insulin Glargine, Recombinant SC SCH (21:36)
[2018-05-26] MEDS: Tramadol 25 mg PO PRN ×2 (04:44→17:48)
[2018-05-26] MEDS: (Novolog) Insulin Aspart, Recombinant 100 u/ml 10 ml vial SC SCH ×7 (07:59→21:32)
[2018-05-26 10:19] VITALS: RESP 20
--- NOTE | 2018-05-26 11:41 | CARD ---
APPROVED REPORT Date of service: 05/23/2018 EKG Measurement Heart [id number] <Conclusion> Normal sinus rhythm Minimal voltage criteria for LVH, may be normal variant Cannot rule out Anterior infarct, age undetermined Abnormal ECG
--- NOTE | 2018-05-26 14:24 | PCM.PYCHPN ---
Psychiatric Progress Note - Psychiatric Progress Note Patient seen today, length of contact: 15 min Patient Chief Complaint: I'm feeling much better. Problems Identified/Issues Discussed: Patient seen, chart reviewed, case discussed with the staff. Issues related to illness and treatment were discussed with the patient and staff. Reported compliant with treatment with no adverse affects. Tolerating treatment very well. Patient reported feeling better. Calm and cooperative with good eye contact. Aftercare discussed with the patient. Awake alert oriented 3, no delusions, no auditory or visual hallucination, nose suicidal ideation or homicidal ideation at time of evaluation. Medical Problems: Hypertension Diabetes mellitus Stroke History of lumbar compression. Diagnostic Results: Reviewed DSM 5 Symptoms Update: Improvement with treatment Medication Change: No Medical Record Reviewed: Yes Mental Status Examination - Cognitive Function Orientation: Person, Place, Situation, Time Memory: Intact Attention: WNL Concentration: WNL Association: WNL Fund of Knowledge: WN Decription of patient's judgement and insights: Fair - Mood Mood: Neutral - Affect Affect: Other (Appropriate) - Speech Speech: Soft - Formal Thought Process Formal Thought Process: No Impairment Psychotic Thoughts and Behaviors: None - Suicidal Ideation Suicidal Ideation: No - Homicidal Ideation Homicidal Ideation: No Goal/Treatment Plan - Goal/Treatment Plan Need for Continued Stay: Remain at risks for inpatient hospitalization, Discharge may exacerbated symptoms, Severe functional impairment Progress Toward Problem(s) and Goals/Treatment Plan: Improving. Patient education. Supportive therapy. Continue treatment as before. Patient will go to adult daycare center after discharge from the hospital for follow-up care. Estimated Date of D/C: 05/27/18 - Smoking Cessation Smoking Cessation Initiated: No
[2018-05-26] MEDS: (Lantus) Insulin Glargine, Recombinant SC SCH (21:21)
[2018-05-27] MEDS: Tramadol 25 mg PO PRN ×2 (04:57→17:29)
[2018-05-27 06:35] VITALS: O2SAT 97
[2018-05-27] MEDS: (Novolog) Insulin Aspart, Recombinant 100 u/ml 10 ml vial SC SCH ×8 (08:20→21:36)
--- NOTE | 2018-05-27 11:06 | PCM.BM ---
Treatment Plan Problems - Problems identified on initial assessmt Depression Date Initiated: 05/18/18 Time Initiated: 19:45 Assessment reference: NA Status: Active Treatment assets and liabiliti Patient Assests: physically healthy, negotiates basic needs Patient Liabilities: financial problems, poor support system - Milieu Protocol Maintain good personal hygiene: daily Assist patient to perform ADL's, every shift Encourage regular showers, every shift Remind patient to perform daily oral care Maintain personal safety: every shift Educate patient to report safety concerns to staff, every shift Monitor environment for contraband/sharps Medication safety: Monitor for expected outcome, potential side effects: every shift, Assess barriers to learning: every shift, Assess readiness for medication education: every shift Milieu Narrative: Improving. Patient education. Supportive therapy. Continue treatment as before. Patient will go to adult daycare center after discharge from the hospital for follow-up care. Family Contact Family involvement: Famliy/SO not involved - Goals for Treatment Patient goals for treatment: "I need the right medication." Discharge/Continuing Care - Education Needs Education Needs: Patient Medication, Patient Coping Skills - Discharge Discharge Criteria: Tolerates medication w/o severe side effects, Reduction of target symptoms Discharge to:: Home, Snf - Treatment Team Participation Patient/Family/SO Statement: Improving. Patient education. Supportive therapy. Continue treatment as before. Patient will go to adult daycare center after discharge from the hospital for follow-up care. Discussed with Family/SO: No Was Patient/Family/SO present at Treatment Team Meeting: Yes Treatment Plan Review - Problem Depression Time Initiated: 19:45 - Discharge / Continuing Care Discharge to:: Home Behavioral Health Services: Home health care, Adult day care Health Needs: Medications/Rx
[2018-05-27] MEDS: (Lantus) Insulin Glargine, Recombinant SC SCH (21:34)
--- NOTE | 2018-05-27 23:28 | PCM.PYCHPN ---
Psychiatric Progress Note - Psychiatric Progress Note Patient seen today, length of contact: 15 min Patient Chief Complaint: I'm feeling much better. Problems Identified/Issues Discussed: Patient seen, chart reviewed, case discussed with the staff. Issues related to illness and treatment were discussed with the patient and staff. Reported compliant with treatment with no adverse affects. Tolerating treatment very well. Patient reported feeling better. Calm and cooperative with good eye contact. Aftercare discussed with the patient. Awake alert oriented 3, no delusions, no auditory or visual hallucination, nose suicidal ideation or homicidal ideation at time of evaluation. Medical Problems: Hypertension Diabetes mellitus Stroke History of lumbar compression. Diagnostic Results: Reviewed DSM 5 Symptoms Update: Feeling much better with treatment. Medication Change: No Medical Record Reviewed: Yes Mental Status Examination - Cognitive Function Orientation: Person, Place, Situation, Time Memory: Intact Attention: WNL Concentration: WNL Association: WNL Fund of Knowledge: [facility] Decription of patient's judgement and insights: Fair - Mood Mood: Neutral - Affect Affect: Other (Appropriate) - Speech Speech: Soft - Formal Thought Process Formal Thought Process: No Impairment Psychotic Thoughts and Behaviors: None - Suicidal Ideation Suicidal Ideation: No - Homicidal Ideation Homicidal Ideation: No Goal/Treatment Plan - Goal/Treatment Plan Need for Continued Stay: Remain at risks for inpatient hospitalization, Discharge may exacerbated symptoms, Severe functional impairment Progress Toward Problem(s) and Goals/Treatment Plan: Improving. Patient education. Supportive therapy. Continue treatment as before. Patient will go to adult daycare center after discharge from the hospital for follow-up care. Estimated Date of D/C: 05/27/18 - Smoking Cessation Smoking Cessation Initiated: No
[2018-05-28] MEDS: Tramadol 25 mg PO PRN (02:11)
[2018-05-28 06:40] VITALS: BP 156/77; PULSE 80; TEMP 97.6
[2018-05-28] MEDS: (Novolog) Insulin Aspart, Recombinant 100 u/ml 10 ml vial SC SCH ×4 (08:20→12:24)
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
== END 2018-05-28 14:01 | disposition home or self-care (01) | DRG 885 ==
LOC: C.ER 11:42 → C.5E 18:34
PROVIDERS: ADMIT Legal Medicine; ATTEND Legal Medicine
PROC: GZHZZZZ Group Psychotherapy (ICD-10-PCS; principal; 2018-05-18)
PROC: GZ56ZZZ Individual Psychotherapy, Supportive (ICD-10-PCS; 2018-05-18)
DX: F33.3 Major depressive disorder, recurrent, severe with psychotic symptoms (principal); G95.20 Unspecified cord compression; E66.9 Obesity, unspecified; Z68.28 Body mass index [BMI] 28.0-28.9, adult; E78.00 Pure hypercholesterolemia, unspecified; I10 Essential (primary) hypertension; I25.10 Atherosclerotic heart disease of native coronary artery without angina pectoris; J45.909 Unspecified asthma, uncomplicated; M54.40 Lumbago with sciatica, unspecified side; M81.0 Age-related osteoporosis without current pathological fracture; F41.8 Other specified anxiety disorders; Z79.4 Long term (current) use of insulin; Z86.73 Personal history of transient ischemic attack (TIA), and cerebral infarction without residual deficits; E11.65 Type 2 diabetes mellitus with hyperglycemia; Z91.11 Patient's noncompliance with dietary regimen; Z91.14 Patient's other noncompliance with medication regimen

== ENCOUNTER 2018-06-12 19:53 | Emergency (ER) | payer MEDICARE ==
[2018-06-12 19:53] VITALS: BMI 28.7
[2018-06-12 20:30] VITALS: RESP 20
[2018-06-12] MEDS ORDERED: Sodium Chloride 0.9% 1,000 ML IV STA (21:15)
[2018-06-12] MEDS ORDERED: Morphine 4 MG/ML VIAL ONE (21:25)
[2018-06-12] MEDS ORDERED: Sodium Chloride 0.9% 1,000 ML ONE (21:25)
[2018-06-12 21:41] LABS: BASO % 0.4 % (0.0-2.0); EOS % 0.1 % (0.0-4.0); HEMOGLOBIN 13.1 g/dL (11.0-16.0); LYMPH # 1.3 K/uL (1.0-4.3); LYMPH % 27.7 % (20.0-40.0); MEAN CELL VOLUME 95.8 fL (81.0-99.0); MEAN CORPUSCULAR HEMOGLOBIN 32.1 pg (27.0-31.0); MEAN CORPUSCULAR HGB CONC 33.5 g/dL (33.0-37.0); MEAN PLATELET VOLUME 10.8 fL (7.2-11.7); MONO # 1.2 K/uL (0.0-0.8); MONO % 27.3 % (0.0-10.0); NEUT % 44.5 % (50.0-75.0); PLATELET COUNT 138 K/uL (130-400); RBC 4.08 Mil/uL (3.80-5.20); RED CELL DISTRIBUTION WIDTH 13.8 % (11.5-14.5); WHITE BLOOD COUNT 4.5 K/uL (4.8-10.8)
[2018-06-12 21:50] LABS: SQUAMOUS EPITHIAL 5 /hpf (0-5); URINE BACTERIA RARE (<OCC); URINE BILIRUBIN NEGATIVE (NEGATIVE); URINE BLOOD NEGATIVE (NEGATIVE); URINE CLARITY Hazy (Clear); URINE COLOR Amber (YELLOW); URINE GLUCOSE (UA) 3+ mg/dL (Normal); URINE HYALINE CAST >20 /lpf (0-2); URINE LEUKOCYTE ESTERASE 1+ Leu/uL (Negative); URINE PROTEIN 2+ mg/dL (NEGATIVE)
[2018-06-12 21:58] LABS: ALB/GLOB RATIO 1.3 (1.0-2.1); ALBUMIN 4.5 g/dL (3.5-5.0)
[2018-06-12 22:23] LABS: BANDS 6 % (0-2); LYMPHOCYTE 41 % (20-40); MONOCYTE 17 % (0-10); NEUTROPHIL 36 % (50-75); TOTAL CELLS COUNTED 100
[2018-06-12 22:27] LABS: PLATELET ESTIMATE NORMAL (NORMAL)
--- NOTE | 2018-06-12 23:01 | C.PDOC ---
History Of Present Illness 67 y/o F p/w abdominal pain x 3 days. Pain is midabdomen, nonradiating, constant , like a squeezing, associated initially with vomiting but now no nausea or vomiting for 2 days. Denies fever, chest pain, diarrhea, dysuria. Time Seen by Provider: 06/12/18 20:51 Chief Complaint (Nursing): Abdominal Pain Past Medical History Vital Signs: Last Vital Signs Temp 98.3 F 06/12/18 20:28 Pulse 110 H 06/12/18 20:28 Resp 20 06/12/18 20:28 BP 162/93 H 06/12/18 20:28 Pulse Ox 99 06/12/18 20:28 - Medical History PMH: Anxiety, Arthritis, Asthma, Bipolar Disorder, Depression, Diabetes, HTN, Hypercholesterolemia, Osteoporosis, Paranoia, Schizophrenia Denies: Hepatitis, HIV, Chronic Kidney Disease, Seizures, Sexually Transmitted Disease Surgical History: Appendectomy, Coronary Stent (PCI of the LAD with stent insertion ( [facility]) in 2007 in [place].) - [facility] Procedures EXCIS DEBRIDE OF WOUND, INFECT, OR BURN (02/06/15) GROUP PSYCHOTHERAPY (05/18/18) INDIVIDUAL PSYCHOTHERAPY, SUPPORTIVE (05/18/18) INTRODUCTION OF SERUM/TOX/VACCINE INTO MUSCLE, PERC APPROACH (07/01/17) VACCINATION NEC (02/06/15) Family History: States: Unknown Family Hx - Social History Hx Tobacco Use: No Hx Alcohol Use: No Hx Substance Use: No - Immunization History Hx Tetanus Toxoid Vaccination: Yes Hx Influenza Vaccination: Yes Hx Pneumococcal Vaccination: Yes Review Of Systems Except As Marked, All Systems Reviewed And Found Negative. Constitutional: Negative for: Fever Cardiovascular: Negative for: Chest Pain Physical Exam - Physical Exam Additional Physical Exam Comments: Gen: NAD Head: NC/AT Eyes: PERRL ENT: MMM Neck: Supple Chest: No tenderness CV: Regular rate Lungs: CTA b/l Abd: Soft, LLQ tenderness Back: No CVA tenderness Skin: No rash Neuro: Alert, no focal deficit ED Course And Treatment - Laboratory Results Result Diagrams: 06/12/18 21:38 06/12/18 21:38 O2 Sat by Pulse Oximetry: 99 Medical Decision Making Medical Decision Making: IMPRESSION: No acute findings or significant abnormalities are noted within the abdomen and pelvis. Retained stool indicative of constipation. No evidence of bowel obstruction. Incidental findings including hiatal hernia, degenerative changes, right kidney stones, constipation, marked spinal stenosis, lipid rich adenoma, left adrenal gland. UA shows UTI. Prescribed laxative, stool softener, antibiotics. F/u PMD, return to ED for worsening pain, fever, vomiting, or any other problem. Disposition - Disposition Disposition: HOME/ ROUTINE Disposition Time: 22:56 Condition: STABLE Prescriptions: Docusate [Colace] 100 mg PO BID #30 cap Nitrofurantoin Macrocrystals [Macrobid] 100 mg PO BID #20 cap Polyethylene Glycol 3350 [Miralax] 17 gm PO DAILY #238 gm Instructions: Constipation in Adults, Urinary Tract Infections in Adults - Clinical Impression Clinical Impression: Constipation, UTI (urinary tract infection)
[2018-06-12 23:22] VITALS: BP 148/78; PULSE 89; TEMP 97.7; O2SAT 98
--- NOTE | 2018-06-13 13:29 | CT ---
Date of service: 06/12/2018 PROCEDURE: CT Abdomen and Pelvis without intravenous contrast HISTORY: abd pain, LLQ tenderness COMPARISON: Abdomen and pelvis CT with contrast 12/03/2017. TECHNIQUE: Helical CT of the abdomen and pelvis was performed without oral or intravenous contrast as per referring physician request. Contrast dose: None Radiation dose: Total exam DLP = 886.95 mGy-cm. This CT exam was performed using one or more of the following dose reduction techniques: Automated exposure control, adjustment of the mA and/or kV according to patient size, and/or use of iterative reconstruction technique. FINDINGS: LOWER THORAX: Mild cardiomegaly reiterated. No pleural or pericardial effusion appreciated or discrete mass. A [id number] hiatal hernia is reiterated. LIVER: Unremarkable. No gross lesion or ductal dilatation. GALLBLADDER AND BILE DUCTS: Unremarkable. PANCREAS: An atrophic nonfocal pancreas is reiterated. SPLEEN: Unremarkable. ADRENALS: A left adrenal mass is stable representing a benign adrenal adenoma measuring 3.6 Hounsfield units, 2.4 x 2.0 cm. Right adrenal gland remains unremarkable appearing. KIDNEYS AND URETERS: Nonobstructing intrarenal calculus measures 4 mm at the midpole right kidney with none on the left. No obstructive uropathy bilaterally. VASCULATURE: Unremarkable. No aortic aneurysm. BOWEL: Stomach is collapsed. Lack of oral contrast limits evaluation the gastrointestinal tract. No bowel obstruction is identified. A few proximal right colonic diverticular seen with rare diverticula at the proximal sigmoid colon. No diverticulitis pattern grossly evident. APPENDIX: Appendix not identified. No CT evidence to suggest appendicitis. PERITONEUM: Unremarkable. No free fluid. No free air. LYMPH NODES: Unremarkable. No enlarged lymph nodes. BLADDER: Unremarkable. REPRODUCTIVE: Unremarkable. BONES: Interval worsening of L3 vertebral body compression fracture, now severe with retropulsed upper pole plate endplate component further deflected posteriorly. An interval moderate anterior wedge compression fracture of L2 is identified with lesser more definite chronic compression fractures minimally noted anteriorly wedging at the delete inferior thoracic spine. A nondisplaced fracture of T12 is suggested as well and stable spondylolisthesis at L4-5 is noted. OTHER FINDINGS: None. IMPRESSION: 1. No definite acute intra-abdominal or intrapelvic findings as discussed above. 2. Infrequent colonic diverticulosis without diverticulitis. 3. Solitary punctate intrarenal calculus right kidney with none on the left. 4. Stable left adrenal benign adenoma. 5. Interval compression fractures are identified at T12, L2 and L3 with T12 and L2 fractures not previously shown. Prior mild L3 fracture is now moderate in severity. All may be chronic and occurring in the interval though this is not definite. Clinically correlate further. Concordant preliminary report from [facility], 06/12/2018.
== END 2018-06-12 23:22 | disposition home or self-care (01) ==
LOC: C.ER 19:53
DX: N39.0 Urinary tract infection, site not specified (principal); K59.00 Constipation, unspecified; I10 Essential (primary) hypertension; E11.9 Type 2 diabetes mellitus without complications; E78.00 Pure hypercholesterolemia, unspecified
CPT/HCPCS: 74176; 80053; 81001; 83690; 85025; 87086; 87181; 96374; 99284; J2270; J7030

== ENCOUNTER 2018-06-15 14:19 | Inpatient (IN) | payer MEDICARE ==
[2018-06-15 14:19] VITALS: BMI 28.7
--- NOTE | 2018-06-15 15:44 | C.PDOC ---
History Of Present Illness 67-year-old female, presents to the emergency department complaining of abdominal pain. patient states she was seen in ED on 06/12, and she had a workup/ CT scan. Patient states she she was diagnosed with UTI and given Rx for Nitrofurantin. Patient notes she has been taking the medication with minimal relief, prompting visit. She denies fever or chills, or any other associated symptoms. No other complaints at this time. Time Seen by Provider: 06/15/18 14:48 Chief Complaint (Nursing): Abdominal Pain History Per: Patient History/Exam Limitations: no limitations Current Symptoms Are (Timing): Still Present Severity: Moderate Past Medical History Reviewed: Historical Data, Nursing Documentation, Vital Signs Vital Signs: Last Vital Signs Temp 98.5 F 06/15/18 18:23 Pulse 96 H 06/15/18 18:23 Resp 21 06/15/18 18:23 BP 127/79 06/15/18 18:23 Pulse Ox 97 06/15/18 18:23 - Medical History PMH: Anxiety, Arthritis, Asthma, Bipolar Disorder, Depression, Diabetes, HTN, Hypercholesterolemia, Osteoporosis, Paranoia, Schizophrenia Surgical History: Appendectomy, Coronary Stent (PCI of the LAD with stent insertion ( [facility]) in 2007 in [place].) - [facility] Procedures EXCIS DEBRIDE OF WOUND, INFECT, OR BURN (02/06/15) GROUP PSYCHOTHERAPY (05/18/18) INDIVIDUAL PSYCHOTHERAPY, SUPPORTIVE (05/18/18) INTRODUCTION OF SERUM/TOX/VACCINE INTO MUSCLE, PERC APPROACH (07/01/17) VACCINATION NEC (02/06/15) Family History: States: No Known Family Hx - Social History Hx Tobacco Use: No Hx Alcohol Use: No Hx Substance Use: No - Immunization History Hx Tetanus Toxoid Vaccination: Yes Hx Influenza Vaccination: Yes Hx Pneumococcal Vaccination: Yes Review Of Systems Constitutional: Negative for: Fever, Chills Cardiovascular: Negative for: Chest Pain Respiratory: Negative for: Shortness of Breath Gastrointestinal: Positive for: Abdominal Pain. Negative for: Vomiting Musculoskeletal: Negative for: Back Pain Skin: Negative for: Rash Neurological: Negative for: Weakness, Numbness, Headache, Dizziness Physical Exam - Physical Exam Appears: Non-toxic, No Acute Distress Skin: Normal Color, Warm, Dry, No Rash Head: Atraumatic, Normacephalic Eye(s): bilateral: Normal Inspection Nose: Normal Oral Mucosa: Moist Lips: Normal Appearing Neck: Normal ROM Cardiovascular: Rhythm Regular, No Murmur Respiratory: Normal Breath Sounds, No Accessory Muscle Use Gastrointestinal/Abdominal: Soft, Tenderness (suprapubic), No Guarding, No Rebound Extremity: Normal ROM, No Deformity Neurological/Psych: Oriented x3, Normal Speech ED Course And Treatment - Laboratory Results Result Diagrams: 06/15/18 15:48 06/15/18 15:48 O2 Sat by Pulse Oximetry: 96 Pulse Ox Interpretation: Normal (RA) - Other Rad CXR X-Ray: Viewed By Me, Read By Radiologist Interpretation: Accession No. : [id number]. Patient Name / ID : SIMEON ALLEN P / [id number]. Exam Date : 06/15/2018 15:40:01 ( Approved ). Study Comment : Sex / Age : F / 67Y. Creator : Chalino Hirsch MD. Dictator : Chalino Hirsch MD. Commercial Development Manager : Bioinformatics Scientist : Chalino Hirsch MD. Approver2 : Report Date : 06/15/2018 16:16:15. My Comment : . Date of service: 06/15/2018. PROCEDURE: CHEST RADIOGRAPH, 1 VIEW. HISTORY: Abdominal pain. COMPARISON: 05/18/2018. FINDINGS: LUNGS: Clear. PLEURA: No pneumothorax or pleural fluid seen. CARDIOVASCULAR: No radiographic findings to suggest acute or significant cardiovascular disease. OSSEOUS STRUCTURES: No significant abnormalities. VISUALIZED UPPER ABDOMEN: Normal. OTHER FINDINGS: None. IMPRESSION: No active disease. No acute/significant interval changes. Progress Note: EKG, bloodwork, Chest X-Ray, UA ordered and reviewed. Previous visit was reviwed, urine culture pos, sensitive to Vanco and PCN. Patient is allergic to PCN, Vanco IV started. Case was d/w patient's PMD who requested patient to be admitted to bone char puller MD. Case was d/w who accepted patient to reg floor for IV antibiotics. Disposition - Disposition Disposition: HOSPITALIZED Disposition Time: 17:30 Condition: FAIR - Clinical Impression Clinical Impression: Urinary tract infection, Abdominal pain - Scribe Statement The provider has reviewed the documentation as recorded by the Scribe (Mario Venegas) All medical record entries made by the Scribe were at my direction and personally dictated by me. I have reviewed the chart and agree that the record accurately reflects my personal performance of the history, physical exam, medical decision making, and the department course for this patient. I have also personally directed, reviewed, and agree with the discharge instructions and disposition. Decision To Admit - Pt Status Changed To: Hospital Disposition Of: Inpatient - Admit Certification Admit to Inpatient:: After my assessment, the patient will require hospitalization for at least two midnights. This is because of the severity of symptoms shown, intensity of services needed, and/or the medical risk in this patient being treated as an outpatient. - InPatient: Physician Admission Certification:: Patient failed outpatient treatment. Vanco is the only option as per urine culture. patient will need more than 2 days of IV Vancomycin - . Bed Request Type: Regular Admitting Physician: Omer Mas Jr. Patient Diagnosis: Urinary tract infection, Abdominal pain
[2018-06-15 15:53] LABS: BASO % 0.3 % (0.0-2.0); EOS % 0.1 % (0.0-4.0); HEMOGLOBIN 12.2 g/dL (11.0-16.0); LYMPH # 1.3 K/uL (1.0-4.3); LYMPH % 32.4 % (20.0-40.0); MEAN CELL VOLUME 95.8 fL (81.0-99.0); MEAN CORPUSCULAR HEMOGLOBIN 32.5 pg (27.0-31.0); MEAN PLATELET VOLUME 11.3 fL (7.2-11.7); MONO % 25.4 % (0.0-10.0); NEUT # 1.7 K/uL (1.8-7.0); NEUT % 41.8 % (50.0-75.0); PLATELET COUNT 123 K/uL (130-400); RBC 3.74 Mil/uL (3.80-5.20); RED CELL DISTRIBUTION WIDTH 13.6 % (11.5-14.5)
[2018-06-15 15:59] LABS: SQUAMOUS EPITHIAL 1 /hpf (0-5); URINE BACTERIA RARE (<OCC); URINE BILIRUBIN NEGATIVE (NEGATIVE); URINE BLOOD 2+ (NEGATIVE); URINE CLARITY Clear (Clear); URINE COLOR Yellow (YELLOW); URINE GLUCOSE (UA) 3+ mg/dL (Normal); URINE LEUKOCYTE ESTERASE NEG Leu/uL (Negative); URINE PROTEIN 2+ mg/dL (NEGATIVE); URINE UROBILINOGEN NORMAL mg/dL (0.2-1.0)
[2018-06-15 16:02] LABS: INR 1.1; PROTHROMBIN TIME 11.8 SECONDS (9.7-12.2)
[2018-06-15 16:10] LABS: ALB/GLOB RATIO 1.4 (1.0-2.1); ALBUMIN 4.2 g/dL (3.5-5.0); ALT/SGPT 28 U/L (9-52); AST/SGOT 29 U/L (14-36); BLOOD UREA NITROGEN 14 mg/dL (7-17); CALCIUM 10.4 mg/dl (8.6-10.4); GFR AFRICAN-AMERICAN > 60; GFR NON-AFRICAN AMERICAN > 60; LIPASE 76 U/L (23-300)
--- NOTE | 2018-06-15 16:18 | RAD ---
Date of service: 06/15/2018 PROCEDURE: CHEST RADIOGRAPH, 1 VIEW HISTORY: Abdominal pain COMPARISON: 05/18/2018 FINDINGS: LUNGS: Clear. PLEURA: No pneumothorax or pleural fluid seen. CARDIOVASCULAR: No radiographic findings to suggest acute or significant cardiovascular disease. OSSEOUS STRUCTURES: No significant abnormalities. VISUALIZED UPPER ABDOMEN: Normal. OTHER FINDINGS: None. IMPRESSION: No active disease. No acute/significant interval changes.
[2018-06-15 16:19] LABS: ANISOCYTOSIS SLIGHT; LYMPHOCYTE 35 % (20-40); MONOCYTE 20 % (0-10); NEUTROPHIL 45 % (50-75); PLATELET ESTIMATE SLIGHTLY DECREASED (NORMAL); POIKILOCYTOSIS SLIGHT; TOTAL CELLS COUNTED 100
[2018-06-15] MEDS ORDERED: Albuterol-Ipratrop 3 mg / 0.5 (3 ml) UD ONE (16:37)
[2018-06-15] MEDS: (Lantus) Insulin Glargine, Recombinant SC SCH (23:10)
[2018-06-15] MEDS: Potassium Chloride 10 mEq ER Tab PO SCH (23:11)
[2018-06-16] MEDS: (Novolog) Insulin Aspart, Recombinant 100 u/ml 10 ml vial SC SCH ×3 (08:30→16:42)
[2018-06-16] MEDS: Potassium Chloride 10 mEq ER Tab PO SCH (10:08)
[2018-06-16] MEDS: Enoxaparin 40 mg Syringe SC SCH (10:09)
--- NOTE | 2018-06-16 11:14 | CP.PCM.HP ---
History of Present Illness - History of Present Illness History of Present Illness: Admitted this 67 years old female from the ER because of a culture of her urine whch showed B hemolyutic Strep sensitive only to Penicillin and vancomycin. Patient is sensitive to penicillin so Vanco is the only other choice. patient is complaining of abdominal pains on and off. A colonoscopy was done 8 years ago as an outpatient which was negative. Pastient is on Pepcid for ? reason. P)atient is a known case of NIDDM, chronic back pain for thoracic vertebrae collapse.. and diagnoseds to have anxiety with depression. Present on Admission - Present on Admission Any Indicators Present on Admission: No Review of Systems - Review of Systems Systems not reviewed;Unavailable: Acuity of Condition - Gastrointestinal Gastrointestinal: Abdominal Pain - Reproductive: Female Reproductive:Female: Menopausal - Psychiatric Psychiatric: Anxiety, Depression Past Patient History - Infectious Disease Hx of Infectious Diseases: None - Tetanus Immunizations Tetanus Immunization: Unknown - Past Medical History & Family History Past Medical History?: Yes - Past Social History Smoking Status: Never Smoked Alcohol: None Home Situation {Lives}: Alone - CARDIAC Hx Cardiac Disorders: Yes Hx Hypercholesterolemia: Yes Hx Hypertension: Yes - PULMONARY Hx Respiratory Disorders: Yes Hx Asthma: Yes - NEUROLOGICAL HX Cerebrovascular Accident: Yes Hx Seizures: No Hx Vertigo: Yes - HEENT Hx HEENT Problems: Yes Other/Comment: wear eyeglasses - RENAL Hx Chronic Kidney Disease: No - ENDOCRINE/METABOLIC Hx Endocrine Disorders: Yes Hx Diabetes Mellitus Type 1: Yes Hx Diabetes Mellitus Type 2: Yes - HEMATOLOGICAL/ONCOLOGICAL Hx Human Immunodeficiency Virus (HIV): No - INTEGUMENTARY Hx Dermatological Problems: No Other/Comment: Hx skin rash - MUSCULOSKELETAL/RHEUMATOLOGICAL Hx Musculoskeletal Disorders: Yes Hx Back Pain: Yes Hx Falls: No - GASTROINTESTINAL Hx Gastrointestinal Disorders: Yes - GENITOURINARY/GYNECOLOGICAL Hx Genitourinary Disorders: Yes Hx Sexually Transmitted Disorders: No Hx Urinary Tract Infection: Yes - PSYCHIATRIC Hx Anxiety: Yes Hx Bipolar Disorder: Yes Hx Depression: Yes Hx Paranoia: Yes Hx Schizophrenia: Yes Hx Substance Use: No - SURGICAL HISTORY Hx Appendectomy: Yes Hx Coronary Stent: Yes (PCI of the LAD with stent insertion ( [facility]) in 2007 in [place].) - ANESTHESIA Hx Anesthesia: Yes Hx Anesthesia Reactions: No Hx Malignant Hyperthermia: No Meds Allergies/Adverse Reactions: Allergies Allergy/AdvReac Type Severity Reaction Status Date / Time Penicillins Allergy RASH Verified 06/15/18 14:35 Physical Exam - Constitutional Appears: No Acute Distress - Eye Exam Eye Exam: EOMI, Normal appearance Pupil Exam: PERRL - ENT Exam ENT Exam: Mucous Membranes Moist, Normal Exam - Respiratory Exam Respiratory Exam: Clear to Auscultation Bilateral, NORMAL BREATHING PATTERN - Cardiovascular Exam Cardiovascular Exam: REGULAR RHYTHM, +S1, +S2 - GI/Abdominal Exam GI & Abdominal Exam: Normal Bowel Sounds, Soft - Rectal Exam Rectal Exam: Deferred - Extremities Exam Extremities exam: Positive for: full ROM, normal inspection - Back Exam Back exam: NORMAL INSPECTION - Neurological Exam Neurological exam: Alert, Oriented x3 - Skin Skin Exam: Dry, Intact, Normal Color, Warm Results - Vital Signs Recent Vital Signs: Last Vital Signs Temp 98.1 F 06/16/18 08:00 Pulse 65 06/16/18 08:00 Resp 20 06/16/18 08:00 BP 140/68 06/16/18 10:09 Pulse Ox 98 06/16/18 08:00 - Labs Result Diagrams: 06/15/18 15:48 06/15/18 15:48 Labs: Laboratory Results - last 24 hr 06/15/18 06/15/18 06/15/18 15:48 15:48 15:48 WBC 4.0 L RBC 3.74 L Hgb 12.2 Hct 35.9 MCV 95.8 MCH 32.5 H MCHC 34.0 RDW 13.6 Plt Count 123 L MPV 11.3 Neut % (Auto) 41.8 L Lymph % (Auto) 32.4 Blaine % (Auto) 25.4 H Eos % (Auto) 0.1 Baso % (Auto) 0.3 Neut # (Auto) 1.7 L Lymph # (Auto) 1.3 Blaine # (Auto) 1.0 H Eos # (Auto) 0.0 Baso # (Auto) 0.0 Neutrophils % (Manual) 45 L Lymphocytes % (Manual) 35 Monocytes % (Manual) 20 H Platelet Estimate Slightly decreased L Poikilocytosis (manual Slight Anisocytosis (manual) Slight PT 11.8 INR 1.1 APTT 28 Sodium Potassium Chloride Carbon Dioxide Anion Gap BUN Creatinine Est GFR ( Amer) Est GFR (Non-Af Amer) POC Glucose (mg/dL) Random Glucose Calcium Total Bilirubin AST ALT Alkaline Phosphatase Troponin I Total Protein Albumin Globulin Albumin/Globulin Ratio Lipase Urine Color Yellow Urine Clarity Clear Urine pH 7.0 Ur Specific Marcella 1.014 Urine Protein 2+ H Urine Glucose (UA) 3+ H Urine Ketones Negative Urine Blood 2+ H Urine Nitrate Negative Urine Bilirubin Negative Urine Urobilinogen Normal Ur Leukocyte Esterase Neg Urine WBC (Auto) 2 Urine RBC (Auto) 148 H Ur Squamous Epith Cells 1 Urine Bacteria Rare 06/15/18 06/16/18 06/16/18 15:48 02:15 07:36 WBC RBC Hgb Hct MCV MCH MCHC RDW Plt Count MPV Neut % (Auto) Lymph % (Auto) Blaine % (Auto) Eos % (Auto) Baso % (Auto) Neut # (Auto) Lymph # (Auto) Blaine # (Auto) Eos # (Auto) Baso # (Auto) Neutrophils % (Manual) Lymphocytes % (Manual) Monocytes % (Manual) Platelet Estimate Poikilocytosis (manual Anisocytosis (manual) PT INR APTT Sodium 138 Potassium 3.4 L Chloride 100 Carbon Dioxide 25 Anion Gap 16 BUN 14 Creatinine 0.9 Est GFR ( Amer) > 60 Est GFR (Non-Af Amer) > 60 POC Glucose (mg/dL) 334 H 311 H Random Glucose 300 H Calcium 10.4 Total Bilirubin 0.8 AST 29 ALT 28 Alkaline Phosphatase 229 H Troponin I 0.0240 Total Protein 7.2 Albumin 4.2 Globulin 3.0 Albumin/Globulin Ratio 1.4 Lipase 76 Urine Color Urine Clarity Urine pH Ur Specific Marcella Urine Protein Urine Glucose (UA) Urine Ketones Urine Blood Urine Nitrate Urine Bilirubin Urine Urobilinogen Ur Leukocyte Esterase Urine WBC (Auto) Urine RBC (Auto) Ur Squamous Epith Cells Urine Bacteria Assessment & Plan (1) Abdominal pain Status: Acute (2) Urinary tract infection Status: Acute (3) Type 2 diabetes mellitus Status: Acute - Assessment and Plan (Free Text) Assessment: Assessment: UTI, acute sensitive only rto Vancomycin. Depression with anxiety. Paranoia. NDDM. Abdominal pains. HTN. Chronic back pains. Plan: Plan: IV vancomycin. GI consult. - Date & Time Date: 06/16/18 Time: 11:23
[2018-06-16] MEDS ORDERED: Dextrose 50% SYRINGE Inj (50 ml) IV STA (16:21)
--- NOTE | 2018-06-16 18:42 | US ---
Date of service: 06/16/2018 HISTORY: abdominal pain COMPARISON: None. TECHNIQUE: Sonographic evaluation of the abdomen. FINDINGS: LIVER: Measures 16.4 cm. Mildly heterogeneous echogenicity of the liver parenchyma. No mass. No intrahepatic bile duct dilatation. Normal directional blood flow at the portal vein and hepatic veins. GALLBLADDER: Unremarkable. No gallstones. COMMON BILE DUCT: Measures 5.0 mm. No choledocholithiasis. Common hepatic duct measures 6.0 mm PANCREAS: Completely obscured by overlying bowel gas. RIGHT KIDNEY: Measures 8.6cm. Normal echogenicity. No mass, or hydronephrosis. Punctate calculus is questioned at the midpole right kidney. LEFT KIDNEY: Measures 10.8cm. Normal echogenicity. No calculus, mass, or hydronephrosis. SPLEEN: Normal in size and contour, measuring 8.0 cm. No mass. AORTA: No aneurysmal dilatation. IVC: Unremarkable. OTHER FINDINGS: None. IMPRESSION: Heterogeneous echogenicity seen throughout the liver which is nonfocal nonetheless. No intrahepatic biliary dilatation. Unremarkable gallbladder and common bile duct. Pancreas completely obscured by overlying bowel gas. Punctate calculus questioned at the midpole right kidney.
[2018-06-16] MEDS ORDERED: (Novolog) Insulin Aspart, Recombinant 100 u/ml 10 ml vial SC ONE (21:16)
[2018-06-16] MEDS: (Lantus) Insulin Glargine, Recombinant SC SCH (22:06)
[2018-06-17 06:31] LABS: BASO % 0.2 % (0.0-2.0); EOS % 0.2 % (0.0-4.0); HEMOGLOBIN 11.4 g/dL (11.0-16.0); LYMPH # 1.2 K/uL (1.0-4.3); LYMPH % 29.2 % (20.0-40.0); MEAN CORPUSCULAR HEMOGLOBIN 32.6 pg (27.0-31.0); MEAN CORPUSCULAR HGB CONC 33.9 g/dL (33.0-37.0); MEAN PLATELET VOLUME 11.3 fL (7.2-11.7); MONO % 23.8 % (0.0-10.0); NEUT # 1.9 K/uL (1.8-7.0); NEUT % 46.6 % (50.0-75.0); NRBC % 0.1 % (0.0-2.0); PLATELET COUNT 102 K/uL (130-400); RED CELL DISTRIBUTION WIDTH 13.2 % (11.5-14.5); WHITE BLOOD COUNT 4.1 K/uL (4.8-10.8)
[2018-06-17 07:41] LABS: ALB/GLOB RATIO 1.2 (1.0-2.1); ALBUMIN 3.5 g/dL (3.5-5.0); ALT/SGPT 24 U/L (9-52); AMYLASE 99 U/L (30-110); AST/SGOT 34 U/L (14-36); BLOOD UREA NITROGEN 16 mg/dL (7-17); CALCIUM 10.7 mg/dl (8.6-10.4); GFR AFRICAN-AMERICAN > 60; GFR NON-AFRICAN AMERICAN > 60; LIPASE 66 U/L (23-300)
[2018-06-17 08:13] LABS: LYMPHOCYTE 24 % (20-40); MONOCYTE 15 % (0-10); NEUTROPHIL 61 % (50-75); PLATELET ESTIMATE SLIGHTLY DECREASED (NORMAL); TOTAL CELLS COUNTED 100
[2018-06-17] MEDS: Potassium Chloride 10 mEq ER Tab PO SCH (08:13)
[2018-06-17] MEDS: Enoxaparin 40 mg Syringe SC SCH (09:32)
--- NOTE | 2018-06-17 11:20 | CP.PCM.CON ---
History of Present Illness - History of Present Illness History of Present Illness: 67 yo Ph female admitted with diffuse abdominal pain, mostly lower and found to have a Strep UTI sensitive only to PCN and Vanco. SHe is admitted for Vacno therapy due to allergy to PCN in the past. She reports she has seen some blood mixed in with her stools but no N/V/C/D. No darell bleeding or melena. CT and Sonogram were done and show no masses or obstruction. She reports to have had a colonoscopy around 8 years ago at [facility] [place]. No heartburn, dysphagia or weight loss. Under care for psych disorder. Patient seen with Dr Barry this morning in her room. Review of Systems - Cardiovascular Cardiovascular: absent: Chest Pain at Rest, Dyspnea, Leg Edema, Palpitations - Respiratory Respiratory: absent: Cough, Dyspnea on Exertion, Chest Congestion - Gastrointestinal Gastrointestinal: As Per HPI. absent: Constipation, Dysphagia, Heartburn, Loose Stools, Melena, Nausea Past Patient History - Infectious Disease Hx of Infectious Diseases: None - Tetanus Immunizations Tetanus Immunization: Unknown - Past Medical History & Family History Past Medical History?: Yes - Past Social History Smoking Status: Never Smoked Alcohol: None Home Situation {Lives}: Alone - CARDIAC Hx Cardiac Disorders: Yes Hx Hypercholesterolemia: Yes Hx Hypertension: Yes - PULMONARY Hx Respiratory Disorders: Yes Hx Asthma: Yes - NEUROLOGICAL HX Cerebrovascular Accident: Yes - HEENT Hx HEENT Problems: Yes Other/Comment: wear eyeglasses - RENAL Hx Chronic Kidney Disease: No - ENDOCRINE/METABOLIC Hx Diabetes Mellitus Type 1: Yes Hx Diabetes Mellitus Type 2: Yes - HEMATOLOGICAL/ONCOLOGICAL Hx Cirrhosis: No Hx Hepatitis A: No Hx Hepatitis B: No Hx Hepatitis C: No Hx Human Immunodeficiency Virus (HIV): No - INTEGUMENTARY Hx Dermatological Problems: No Other/Comment: Hx skin rash - MUSCULOSKELETAL/RHEUMATOLOGICAL Hx Musculoskeletal Disorders: Yes Hx Back Pain: Yes Hx Falls: No - GASTROINTESTINAL Hx Gastrointestinal Disorders: Yes Hx Bowel Surgery: No Hx Clostridium Difficile: No Hx Colitis: No Hx Colostomy: No Hx Constipation: No Hx Crohn's Disease: No Hx Diarrhea: No Hx Diverticulitis: No Hx Esophageal Varices: No Hx Fatty Liver Disease: No Hx Gall Bladder Disease: No Hx Gastritis: Yes Hx Gastroesophageal Reflux: Yes Hx Hemorrhoids: Yes Hx Ileostomy: No Hx Irritable Bowel: No Hx Liver Failure: No Hx Nausea: No Hx Pancreatitis: No HX Swallowing Problems: No Hx Ulcer: No Hx Vomiting: No - GENITOURINARY/GYNECOLOGICAL Hx Genitourinary Disorders: Yes Hx Sexually Transmitted Disorders: No Hx Urinary Tract Infection: Yes - PSYCHIATRIC Hx Anxiety: Yes Hx Bipolar Disorder: Yes Hx Depression: Yes Hx Paranoia: Yes Hx Schizophrenia: Yes Hx Substance Use: No - SURGICAL HISTORY Hx Appendectomy: Yes Hx Coronary Stent: Yes (PCI of the LAD with stent insertion ( [facility]) in 2007 in [place].) - ANESTHESIA Hx Anesthesia: Yes Hx Anesthesia Reactions: No Hx Malignant Hyperthermia: No Meds Allergies/Adverse Reactions: Allergies Allergy/AdvReac Type Severity Reaction Status Date / Time Penicillins Allergy RASH Verified 06/15/18 14:35 - Medications Medications: Current Medications Amlodipine Besylate (Norvasc) 5 mg PO DAILY [facility] Last Admin: 06/17/18 09:32 Dose: 5 mg Clopidogrel Bisulfate (Plavix) 75 mg PO DAILY [facility] Last Admin: 06/17/18 09:32 Dose: 75 mg Docusate Sodium (Colace) 100 mg PO BID [facility] Last Admin: 06/17/18 09:32 Dose: 100 mg Enoxaparin Sodium (Lovenox) 40 mg SC DAILY [facility] Last Admin: 06/17/18 09:32 Dose: 40 mg Famotidine (Pepcid) 20 mg PO BID [facility] Last Admin: 06/17/18 09:37 Dose: 20 mg Glipizide (Glucotrol) 5 mg PO BID [facility] Last Admin: 06/16/18 10:08 Dose: 5 mg Vancomycin HCl 500 mg/ Sodium (Chloride) 100 mls @ 100 mls/hr IVPB Q12H [facility] PRN Reason: Protocol Last Admin: 06/17/18 04:30 Dose: 100 mls/hr Insulin Glargine (Lantus) 30 unit SC [facility] Last Admin: 06/16/18 22:06 Dose: 30 units Isosorbide Mononitrate (Imdur Er) 30 mg PO BID [facility] Last Admin: 06/17/18 09:32 Dose: 30 mg Meclizine HCl (Antivert) 25 mg PO Q6 PRN PRN Reason: Dizziness Metoprolol Tartrate (Lopressor) 25 mg PO DAILY [facility] Last Admin: 06/17/18 09:32 Dose: 25 mg Montelukast Sodium (Singulair) 10 mg PO [facility] Last Admin: 06/16/18 22:05 Dose: 10 mg Potassium Chloride (Klor-Con 10) 10 meq PO BRK [facility] Last Admin: 06/17/18 08:13 Dose: 10 meq Rosuvastatin Calcium (Crestor) 10 mg PO HS [facility] Last Admin: 06/16/18 22:05 Dose: 10 mg Topiramate (Topamax) 100 mg PO TID [facility] Last Admin: 06/17/18 09:32 Dose: 100 mg Physical Exam - Constitutional Appears: No Acute Distress - Head Exam Head Exam: ATRAUMATIC, NORMOCEPHALIC - Eye Exam Eye Exam: EOMI, PERRL - Respiratory Exam Respiratory Exam: NORMAL BREATHING PATTERN - Cardiovascular Exam Cardiovascular Exam: REGULAR RHYTHM, +S1 - GI/Abdominal Exam GI & Abdominal Exam: Normal Bowel Sounds, Soft. absent: Distended, Mass, Rebound, Rigid, Tenderness - Rectal Exam Rectal Exam: Deferred - Extremities Exam Extremities exam: Positive for: normal inspection. Negative for: pedal edema - Neurological Exam Neurological exam: Alert, Oriented x3 - Psychiatric Exam Psychiatric exam: Anxious - Skin Skin Exam: Dry, Warm Results - Vital Signs Recent Vital Signs: Last Vital Signs Temp 97.7 F 06/17/18 07:58 Pulse 85 06/17/18 07:58 Resp 20 06/17/18 07:58 BP 163/78 H 06/17/18 09:32 Pulse Ox 95 06/17/18 07:58 - Labs Result Diagrams: 06/17/18 06:22 06/17/18 06:22 Labs: Laboratory Results - last 24 hr 06/16/18 06/16/18 06/16/18 16:14 16:16 16:34 WBC RBC Hgb Hct MCV MCH MCHC RDW Plt Count MPV Neut % (Auto) Lymph % (Auto) Creek % (Auto) Eos % (Auto) Baso % (Auto) Neut # (Auto) Lymph # (Auto) Creek # (Auto) Eos # (Auto) Baso # (Auto) Neutrophils % (Manual) Lymphocytes % (Manual) Monocytes % (Manual) Platelet Estimate RBC Morphology Sodium Potassium Chloride Carbon Dioxide Anion Gap BUN Creatinine Est GFR ( Amer) Est GFR (Non-Af Amer) POC Glucose (mg/dL) 24 L* 31 L* 239 H Random Glucose Calcium Total Bilirubin AST ALT Alkaline Phosphatase Total Protein Albumin Globulin Albumin/Globulin Ratio Amylase Lipase 06/16/18 06/17/18 06/17/18 21:09 02:58 05:06 WBC RBC Hgb Hct MCV MCH MCHC RDW Plt Count MPV Neut % (Auto) Lymph % (Auto) Creek % (Auto) Eos % (Auto) Baso % (Auto) Neut # (Auto) Lymph # (Auto) Creek # (Auto) Eos # (Auto) Baso # (Auto) Neutrophils % (Manual) Lymphocytes % (Manual) Monocytes % (Manual) Platelet Estimate RBC Morphology Sodium Potassium Chloride Carbon Dioxide Anion Gap BUN Creatinine Est GFR ( Amer) Est GFR (Non-Af Amer) POC Glucose (mg/dL) 475 H* 353 H 283 H Random Glucose Calcium Total Bilirubin AST ALT Alkaline Phosphatase Total Protein Albumin Globulin Albumin/Globulin Ratio Amylase Lipase 06/17/18 06/17/18 06/17/18 06:22 06:22 07:25 WBC 4.1 L RBC 3.50 L Hgb 11.4 Hct 33.7 L MCV 96.0 MCH 32.6 H MCHC 33.9 RDW 13.2 Plt Count 102 L D MPV 11.3 Neut % (Auto) 46.6 L Lymph % (Auto) 29.2 Creek % (Auto) 23.8 H Eos % (Auto) 0.2 Baso % (Auto) 0.2 Neut # (Auto) 1.9 Lymph # (Auto) 1.2 Creek # (Auto) 1.0 H Eos # (Auto) 0.0 Baso # (Auto) 0.0 Neutrophils % (Manual) 61 Lymphocytes % (Manual) 24 Monocytes % (Manual) 15 H Platelet Estimate Slightly decreased L RBC Morphology Normal Sodium 136 Potassium 4.2 Chloride 102 Carbon Dioxide 24 Anion Gap 14 BUN 16 Creatinine 0.8 Est GFR ( Amer) > 60 Est GFR (Non-Af Amer) > 60 POC Glucose (mg/dL) 273 H Random Glucose 234 H Calcium 10.7 H Total Bilirubin 0.4 AST 34 ALT 24 Alkaline Phosphatase 183 H D Total Protein 6.4 Albumin 3.5 Globulin 2.9 Albumin/Globulin Ratio 1.2 Amylase 99 Lipase 66 06/17/18 11:08 WBC RBC Hgb Hct MCV MCH MCHC RDW Plt Count MPV Neut % (Auto) Lymph % (Auto) Creek % (Auto) Eos % (Auto) Baso % (Auto) Neut # (Auto) Lymph # (Auto) Creek # (Auto) Eos # (Auto) Baso # (Auto) Neutrophils % (Manual) Lymphocytes % (Manual) Monocytes % (Manual) Platelet Estimate RBC Morphology Sodium Potassium Chloride Carbon Dioxide Anion Gap BUN Creatinine Est GFR ( Amer) Est GFR (Non-Af Amer) POC Glucose (mg/dL) 326 H Random Glucose Calcium Total Bilirubin AST ALT Alkaline Phosphatase Total Protein Albumin Globulin Albumin/Globulin Ratio Amylase Lipase - Imaging and Cardiology CT scan - abdomen Status: Image reviewed by me, Report reviewed by me Assessment & Plan (1) Lower abdominal pain Assessment and Plan: Abdominal pain appears to correlate with UTI. No signs of mass or obstruction on imaging studies. Mild diverticulosis on CT Scan. Status: Acute (2) Blood in stool Assessment and Plan: Agree with Dr Barry that patient is in need of a colonoscopy but would defer electively in absence of overt bleeding until resolution of UTI. Don't want to introduce other variables for infection/contamination of urinary tract from colonoscopy or prep. Out patient colonoscopy to be planned as of now. Status: Acute (3) Urinary tract infection Assessment and Plan: On Vanco IV Status: Acute (4) Abnormal alkaline phosphatase test Assessment and Plan: No evidence of biliary dilatation or stones on Sono or CT scan. r/o bone source for mild elevation. Check GGTP, Alk Phos isoenzymes. No other work up at this time. Status: Acute
--- NOTE | 2018-06-17 11:29 | CP.PCM.PN ---
Subjective - Date & Time of Evaluation Date of Evaluation: 06/17/18 Time of Evaluation: 11:22 - Subjective Subjective: patient still c?o abdominal [ains. Claims she had blood in the stool today. Blood suhar was over 400 last night foe she drank a lot of juice She again has 4 cups of juice at bedside. This patient has a lot of psychiatric problems. Dr. Javier was consulted yesterday.Dr. Blair saw her toiday and claims he will do a coloniscopy on her as an outpatient after her UTI is treated. Objective - Vital Signs/Intake and Output Vital Signs (last 24 hours): Temp Pulse Resp BP Pulse Ox 97.7 F 85 20 163/78 H 95 06/17/18 07:58 06/17/18 07:58 06/17/18 07:58 06/17/18 09:32 06/17/18 07:58 Intake and Output: 06/17/18 06/17/18 06:59 18:59 Intake Total 550 850 Balance 550 850 - Medications Medications: Current Medications Amlodipine Besylate (Norvasc) 5 mg PO DAILY [facility] Last Admin: 06/17/18 09:32 Dose: 5 mg Clopidogrel Bisulfate (Plavix) 75 mg PO DAILY [facility] Last Admin: 06/17/18 09:32 Dose: 75 mg Docusate Sodium (Colace) 100 mg PO BID [facility] Last Admin: 06/17/18 09:32 Dose: 100 mg Enoxaparin Sodium (Lovenox) 40 mg SC DAILY [facility] Last Admin: 06/17/18 09:32 Dose: 40 mg Famotidine (Pepcid) 20 mg PO BID [facility] Last Admin: 06/17/18 09:37 Dose: 20 mg Glipizide (Glucotrol) 5 mg PO BID [facility] Last Admin: 06/16/18 10:08 Dose: 5 mg Vancomycin HCl 500 mg/ Sodium (Chloride) 100 mls @ 100 mls/hr IVPB Q12H [facility] PRN Reason: Protocol Last Admin: 06/17/18 04:30 Dose: 100 mls/hr Insulin Glargine (Lantus) 30 [address] [facility] Last Admin: 06/16/18 22:06 Dose: 30 units Isosorbide Mononitrate (Imdur Er) 30 mg PO BID [facility] Last Admin: 06/17/18 09:32 Dose: 30 mg Meclizine HCl (Antivert) 25 mg PO Q6 PRN PRN Reason: Dizziness Metoprolol Tartrate (Lopressor) 25 mg PO DAILY [facility] Last Admin: 06/17/18 09:32 Dose: 25 mg Montelukast Sodium (Singulair) 10 mg PO HS [facility] Last Admin: 06/16/18 22:05 Dose: 10 mg Potassium Chloride (Klor-Con 10) 10 meq PO BRK [facility] Last Admin: 06/17/18 08:13 Dose: 10 meq Rosuvastatin Calcium (Crestor) 10 mg PO HS [facility] Last Admin: 06/16/18 22:05 Dose: 10 mg Topiramate (Topamax) 100 mg PO TID [facility] Last Admin: 06/17/18 09:32 Dose: 100 mg - Labs Labs: 06/17/18 06:22 06/17/18 06:22 PT 11.8 SECONDS (9.7-12.2) 06/15/18 15:48 INR 1.1 06/15/18 15:48 APTT 28 SECONDS (21-34) 06/15/18 15:48 - Eye Exam Eye Exam: Normal appearance Pupil Exam: PERRL - ENT Exam ENT Exam: Mucous Membranes Moist - Neck Exam Neck Exam: Full ROM - Respiratory Exam Respiratory Exam: Clear to Ausculation Bilateral, NORMAL BREATHING PATTERN - Cardiovascular Exam Cardiovascular Exam: REGULAR RHYTHM, +S1, +S2 - GI/Abdominal Exam GI & Abdominal Exam: Soft - Rectal Exam Rectal Exam: NORMAL INSPECTION - Extremities Exam Extremities Exam: Full ROM - Back Exam Back Exam: Full ROM, NORMAL INSPECTION - Neurological Exam Neurological Exam: Alert, Oriented x3 - Psychiatric Exam Psychiatric exam: Anxious - Skin Skin Exam: Dry, Intact, Normal Color, Warm Assessment and Plan (1) Abdominal pain Status: Acute (2) Urinary tract infection Status: Acute (3) Type 2 diabetes mellitus Status: Acute - Assessment and Plan (Free Text) Assessment: Assessment: UTI Abdominal Pains. NIDDM Paranoia Depression with anxiety HTN CAD Plan: Plan: Continue IV Vancomycin
[2018-06-17] MEDS ORDERED: (Novolog) Insulin Aspart, Recombinant 100 u/ml 10 ml vial SC ONE (17:30)
[2018-06-17] MEDS: (Lantus) Insulin Glargine, Recombinant SC SCH (21:54)
[2018-06-18 08:09] LABS: ALB/GLOB RATIO 1.2 (1.0-2.1); ALBUMIN 3.2 g/dL (3.5-5.0); BILIRUBIN,DIRECT 0.3 mg/dL (0.0-0.4)
[2018-06-18] MEDS: Potassium Chloride 10 mEq ER Tab PO SCH (08:25)
[2018-06-18] MEDS: Enoxaparin 40 mg Syringe SC SCH (10:07)
--- NOTE | 2018-06-18 10:30 | CP.PCM.PN ---
Subjective - Date & Time of Evaluation Date of Evaluation: 06/18/18 Time of Evaluation: 10:19 - Subjective Subjective: Afebrile. Patient seen and examined. Still C/O abdominal pains. C/S of the urine done on 06/12/2018 was reported as multiple species less than 10,000 most probably contaminant. However C/S done on 06/12 shows a Beta hemolytic strep sensitive only to Vanco and Penicillin. At that time she was given Macrodantin. Cat scan of the abdomen shows a stable adrenal adeno,ma, , No intra abdominal mass or any definite abdominal pathology.Abdominal U/S did not show anything either. All blood test for the liver and pancreas are negative. A consultation was called for this patient but refused to see her for the insurance refused to pay him. A consultation will be obtained from the [facility] information [facility] supervisor psychiatrist. An MRI of the thoracic and lumbar spines will be obtained for she has multiple compression fractures of the thoracic and lumbar spines. Dr. Blair saw the patient and he will schedule this patient as a outp[ atient.for upper and lower endoscopy. Objective - Vital Signs/Intake and Output Vital Signs (last 24 hours): Temp Pulse Resp BP Pulse Ox 97.6 F 59 L 20 179/69 H 97 06/18/18 07:00 06/18/18 07:00 06/18/18 07:00 06/18/18 10:06 06/18/18 07:00 Intake and Output: 06/18/18 06/18/18 06:59 18:59 Intake Total 850 Balance 850 - Medications Medications: Current Medications Amlodipine Besylate (Norvasc) 5 mg PO DAILY [facility] Last Admin: 06/18/18 10:07 Dose: 5 mg Clopidogrel Bisulfate (Plavix) 75 mg PO DAILY [facility] Last Admin: 06/18/18 10:07 Dose: 75 mg Docusate Sodium (Colace) 100 mg PO BID [facility] Last Admin: 06/18/18 10:06 Dose: 100 mg Enoxaparin Sodium (Lovenox) 40 mg SC DAILY [facility] Last Admin: 06/18/18 10:07 Dose: 40 mg Famotidine (Pepcid) 20 mg PO BID [facility] Last Admin: 06/18/18 10:06 Dose: 20 mg Glipizide (Glucotrol) 5 mg PO BID [facility] Last Admin: 06/18/18 10:07 Dose: 5 mg Vancomycin HCl 500 mg/ Sodium (Chloride) 100 mls @ 100 mls/hr IVPB Q12H [facility] PRN Reason: Protocol Last Admin: 06/18/18 05:03 Dose: 100 mls/hr Insulin Glargine (Lantus) 30 unit SC [facility] Last Admin: 06/17/18 21:54 Dose: 30 units Isosorbide Mononitrate (Imdur Er) 30 mg PO BID [facility] Last Admin: 06/18/18 10:07 Dose: 30 mg Meclizine HCl (Antivert) 25 mg PO Q6 PRN PRN Reason: Dizziness Metoprolol Tartrate (Lopressor) 25 mg PO DAILY [facility] Last Admin: 06/18/18 10:06 Dose: 25 mg Montelukast Sodium (Singulair) 10 mg PO [facility] Last Admin: 06/17/18 21:47 Dose: 10 mg Potassium Chloride (Klor-Con 10) 10 meq PO BRK [facility] Last Admin: 06/18/18 08:25 Dose: 10 meq Rosuvastatin Calcium (Crestor) 10 mg PO [facility] Last Admin: 06/17/18 21:47 Dose: 10 mg Topiramate (Topamax) 100 mg PO TID [facility] Last Admin: 06/18/18 10:06 Dose: 100 mg - Labs Labs: 06/17/18 06:22 06/17/18 06:22 PT 11.8 SECONDS (9.7-12.2) 06/15/18 15:48 INR 1.1 06/15/18 15:48 APTT 28 SECONDS (21-34) 06/15/18 15:48 - Constitutional Appears: No Acute Distress - Head Exam Head Exam: ATRAUMATIC, NORMAL INSPECTION - Eye Exam Eye Exam: Normal appearance, PERRL - ENT Exam ENT Exam: Mucous Membranes Moist, Normal External Ear Exam - Neck Exam Neck Exam: Full ROM - Respiratory Exam Respiratory Exam: Clear to Ausculation Bilateral, NORMAL BREATHING PATTERN - Cardiovascular Exam Cardiovascular Exam: REGULAR RHYTHM, +S1, +S2 - GI/Abdominal Exam GI & Abdominal Exam: Soft, Normal Bowel Sounds - Rectal Exam Rectal Exam: Deferred - Extremities Exam Extremities Exam: Full ROM, Normal Inspection - Back Exam Back Exam: Full ROM, NORMAL INSPECTION - Neurological Exam Neurological Exam: Alert, Awake, Oriented x3 - Psychiatric Exam Psychiatric exam: Anxious, Depressed - Skin Skin Exam: Dry, Intact, Normal Color, Warm Assessment and Plan (1) Abdominal pain Status: Acute (2) Urinary tract infection Status: Acute (3) Type 2 diabetes mellitus Status: Acute - Assessment and Plan (Free Text) Assessment: Assessment: Acute UTI. NIDDM CAD Multiple compression fracture of thoracic and Lumar spines. Depression with anxiety. Paranoid delusions. Plan: Plan: Continue IV vancomycin. MRI of th thoracic and lumbar spines.
[2018-06-18 11:50] LABS: ALB/GLOB RATIO 1.1 (1.0-2.1); ALBUMIN 3.2 g/dL (3.5-5.0); ALT/SGPT 32 U/L (9-52); AST/SGOT 22 U/L (14-36); BLOOD UREA NITROGEN 14 mg/dL (7-17); CALCIUM 10.1 mg/dl (8.6-10.4); GFR AFRICAN-AMERICAN > 60; GFR NON-AFRICAN AMERICAN > 60
--- NOTE | 2018-06-18 11:50 | CP.PCM.PN ---
Subjective - Date & Time of Evaluation Date of Evaluation: 06/18/18 Time of Evaluation: 11:48 - Subjective Subjective: No new c/o. Abdominal and back pain unchanges. No bleeding or melena Stool OB not yet reported Objective - Vital Signs/Intake and Output Vital Signs (last 24 hours): Temp Pulse Resp BP Pulse Ox 97.6 F 59 L 20 179/69 H 97 06/18/18 07:00 06/18/18 07:00 06/18/18 07:00 06/18/18 10:06 06/18/18 07:00 Intake and Output: 06/18/18 06/18/18 06:59 18:59 Intake Total 850 Balance 850 - Medications Medications: Current Medications Amlodipine Besylate (Norvasc) 5 mg PO DAILY [facility] Last Admin: 06/18/18 10:07 Dose: 5 mg Clopidogrel Bisulfate (Plavix) 75 mg PO DAILY [facility] Last Admin: 06/18/18 10:07 Dose: 75 mg Docusate Sodium (Colace) 100 mg PO BID [facility] Last Admin: 06/18/18 10:06 Dose: 100 mg Enoxaparin Sodium (Lovenox) 40 mg SC DAILY [facility] Last Admin: 06/18/18 10:07 Dose: 40 mg Famotidine (Pepcid) 20 mg PO BID [facility] Last Admin: 06/18/18 10:06 Dose: 20 mg Glipizide (Glucotrol) 5 mg PO BID [facility] Last Admin: 06/18/18 10:07 Dose: 5 mg Vancomycin HCl 500 mg/ Sodium (Chloride) 100 mls @ 100 mls/hr IVPB Q12H [facility] PRN Reason: Protocol Last Admin: 06/18/18 05:03 Dose: 100 mls/hr Insulin Glargine (Lantus) 30 unit SC [facility] Last Admin: 06/17/18 21:54 Dose: 30 units Isosorbide Mononitrate (Imdur Er) 30 mg PO BID [facility] Last Admin: 06/18/18 10:07 Dose: 30 mg Meclizine HCl (Antivert) 25 mg PO Q6 PRN PRN Reason: Dizziness Metoprolol Tartrate (Lopressor) 25 mg PO DAILY [facility] Last Admin: 06/18/18 10:06 Dose: 25 mg Montelukast Sodium (Singulair) 10 mg PO HS [facility] Last Admin: 06/17/18 21:47 Dose: 10 mg Potassium Chloride (Klor-Con 10) 10 meq PO BRK [facility] Last Admin: 06/18/18 08:25 Dose: 10 meq Rosuvastatin Calcium (Crestor) 10 mg PO HS [facility] Last Admin: 06/17/18 21:47 Dose: 10 mg Topiramate (Topamax) 100 mg PO TID [facility] Last Admin: 06/18/18 10:06 Dose: 100 mg - Labs Labs: 06/17/18 06:22 06/17/18 06:22 PT 11.8 SECONDS (9.7-12.2) 06/15/18 15:48 INR 1.1 06/15/18 15:48 APTT 28 SECONDS (21-34) 06/15/18 15:48 - Constitutional Appears: No Acute Distress - Head Exam Head Exam: ATRAUMATIC, NORMOCEPHALIC - Respiratory Exam Respiratory Exam: NORMAL BREATHING PATTERN - Cardiovascular Exam Cardiovascular Exam: REGULAR RHYTHM - GI/Abdominal Exam GI & Abdominal Exam: Soft, Normal Bowel Sounds. absent: Distended, Guarding, Tenderness, Mass, Rebound - Extremities Exam Extremities Exam: Normal Inspection Assessment and Plan (1) Lower abdominal pain Assessment & Plan: Etiology of chronic abdominal pain remains ill defined. May be due to UTI, Diverticular disease or other abdominal pathology or may represent radiculopathy due to herniated disc, spinal stenosis and compression of a nerve root leading to radicular pain. Colonoscopy +/- EGD to be arranged as outpatient after treatment of B-strep UTI. Status: Acute (2) Blood in stool Assessment & Plan: Awaiting stool OB. Plans as previously outlined. Status: Acute (3) Urinary tract infection Assessment & Plan: ON Vancomycin per Dr Barry. Status: Acute (4) Abnormal alkaline phosphatase test Assessment & Plan: Sono negative for ductal abnormalities or stones. Alk Phos isoenzymes ordered with GGTP. Status: Acute
[2018-06-18] MEDS ORDERED: (Novolog) Insulin Aspart, Recombinant 100 u/ml 10 ml vial SC ONE (12:05)
--- NOTE | 2018-06-18 13:56 | MRI ---
Date of service: 06/18/2018 PROCEDURE: MR THORACIC SPINE WITHOUT CONTRAST HISTORY: severe back pains COMPARISON: None available. TECHNIQUE: Multiecho multiplanar sequences were performed through the thoracic spine without the use of intravenous contrast. FINDINGS: ALIGNMENT: Kyphotic curvature is somewhat increased inferiorly due to heterogeneous fracture at the T12 vertebral body mild in severity with variable edema and a fluid-filled fracture plane through the anterior vertebral body margins. Further, an interval moderate fracture at L2 is noted incidentally. Neither of these fractures is likely in the acute phase with subacute timeframe more likely. Edema is seen in the prevertebral paraspinal soft tissues from T11 at least down to the L1. No prominent retropulsion of endplates is appreciated to result in a high-grade stenosis. No spondylolisthesis. Small benign hemangiomas are identified at T3, T4, T6, T7 and T11. The thoracic spinal cord appears normal in signal intensity, course and caliber with the conus medullaris terminating at L1. VERTEBRA: As above. MARROW: As above. PARASPINAL SOFT TISSUES: As above. CORD: As above. DISCS: No disc herniation, spinal canal stenosis, or neuroforaminal narrowing. OTHER FINDINGS: None. IMPRESSION: Likely late subacute or potentially artery chronic compression fractures are moderate at T12 and L1 as compared to prior lumbar spine radiographs 03/08/2018. [id number] prevertebral paraspinal soft tissues are I do identified T11 down to at least L1 as discussed above. No significant stenosis is identified. Normal appearing thoracic spinal cord.
--- NOTE | 2018-06-18 13:59 | CARD ---
APPROVED REPORT Date of service: 06/15/2018 EKG Measurement Heart [id number] <Conclusion> Normal sinus rhythm Possible Left atrial enlargement Left ventricular hypertrophy Abnormal ECG
--- NOTE | 2018-06-18 15:26 | PCM.PSYCH ---
Initial Psychiatric Evaluation - Initial Psychiatric Evaluation Type of Admission: Voluntary Legal Status: Capacity Chief Complaint (in patient's own words): "I have abdominal pain" History of Present Illness and Precipitating Events: Pt was evaluated at bedside. Pt is alert and pleasant and was eating during evaluation as she just returned from an MRI. Chart was discussed with nurse. Pt is a 67 year old female who presented to the ED with severe abdominal pain for the past 3 weeks. According to prior records, pt has a past psychiatric history of schizophrenia and bipolar disorder. Today, pt denied any past psychiatric history with the exception of depression in 2000 after a stroke. Pt takes 200 mg of Wellbutrin SR and is happy with her medication. Pt denies any recent depressed mood, anxiety, feeling of hopelessness, S/I, H/I, A/ H, V/H, or paranoia. Pt denies alcohol, tobacco, or illicit drug use. Pt does not work as she has been on disability since 2003. She has been a since 2007 and is living on her own and has no children. She says that she stays busy at home and loves watching TV shows. PMHx: anxiety, arthritis, asthma, bipolar disorder, depression, diabetes, HTN, hypercholesterolemia, osteoporosis, paranoia, schizophrenia PSurgHx: appendectomy, coronary stent Pt is expressing no depressive sxs or psychiatric impairments and is cleared by psychiatry. Current Medications: Active Medications Generic Name Dose Route Start Last Admin Trade Name Freq PRN Reason Stop Dose Admin Amlodipine Besylate 5 mg 06/16/18 10:06/18/18 10:07 Norvasc PO 5 mg DAILY PIERO Administration Clopidogrel Bisulfate 75 mg 06/16/18 10:06/18/18 10:07 Plavix PO 75 mg DAILY PIERO Administration Docusate Sodium 100 mg 06/16/18 10:06/18/18 10:06 Colace PO 100 mg BID PIERO Administration Enoxaparin Sodium 40 mg 06/16/18 10:06/18/18 10:07 Lovenox SC 40 mg DAILY PIERO Administration Famotidine 20 mg 06/16/18 10:06/18/18 10:06 Pepcid PO 20 mg BID PIERO Administration Glipizide 5 mg 06/16/18 10:00 06/18/18 10:07 Glucotrol PO 5 mg BID PIERO Administration Vancomycin HCl 500 mg/ Sodium 100 mls @ 100 mls/hr 06/16/18 05:00 06/18/18 05 :03 Chloride IVPB 100 mls/hr Q12H PIERO Administration Protocol Insulin Glargine 30 unit 06/15/18 22:45 06/17/18 21:54 Lantus SC 30 units HS PIERO Administration Isosorbide Mononitrate 30 mg 06/16/18 10:00 06/18/18 10:07 Imdur Er PO 30 mg BID PIERO Administration Meclizine HCl 25 mg 06/15/18 22:52 Antivert PO Q6 PRN Dizziness Metoprolol Tartrate 25 mg 06/16/18 10:00 06/18/18 10:06 Lopressor PO 25 mg DAILY PIREO Administration Montelukast Sodium 10 mg 06/15/18 23:00 06/17/18 21:47 Singulair PO 10 mg HS PIERO Administration Potassium Chloride 10 meq 06/15/18 10:00 06/18/18 08:25 Klor-Con 10 PO 10 meq BRK PIERO Administration Rosuvastatin Calcium 10 mg 06/15/18 22:30 06/17/18 21:47 Crestor PO 10 mg HS PIERO Administration Topiramate 100 mg 06/16/18 10:00 06/18/18 13:54 Topamax PO 100 mg TID PIERO Administration Past Psychiatric History - Past Psychiatric History Previous Treatment History: Inpatient Prior Professional Help: [facility] Pertinent Medical Hx (Current Medical&Sleep Prob, Allergies): Allergies Allergy/AdvReac Type Severity Reaction Status Date / Time Penicillins Allergy RASH Verified 06/15/18 14:35 Atorvastatin Calcium [Lipitor] 10 mg PO DAILY 12/16/14 Clopidogrel [Plavix] 75 mg PO DAILY 12/16/14 Insulin Glargine,Hum.rec.anlog [Lantus] 30 unit SC HS 12/16/14 Acetaminophen [Tylenol 325mg tab] 650 mg PO Q6H PRN 11/23/17 Insulin Aspart [Novolog Flexpen] 14 units SC TID 01/28/18 Isosorbide Mononitrate [Isosorbide Mononitrate ER] 30 mg PO BID 01/28/18 Famotidine [Pepcid] 20 mg PO BID #30 tab 01/29/18 Meclizine [Meclizine*] 25 mg PO Q6 PRN 04/27/18 Metoprolol Tartrate [Lopressor] 25 mg PO DAILY 03/06/18 Montelukast [Singulair] 10 mg PO HS 03/06/18 buPROPion [Wellbutrin] 200 mg PO DAILY 03/06/18 GlipiZIDE [Glucotrol] 5 mg PO BID 60 Days tab 03/12/18 Insulin Aspart, Recombinant [Novolog] 0 unit SC ACHS unit 05/28/18 Insulin Aspart, Recombinant [Novolog] 14 unit SC ACTID unit 05/28/18 Insulin Glargine, Recombina [Lantus] 30 unit SC HS unit 05/28/18 Docusate [Colace] 100 mg PO BID #30 cap 06/12/18 Nitrofurantoin Macrocrystals [Macrobid] 100 mg PO BID #20 cap 06/12/18 Polyethylene Glycol 3350 [Miralax] 17 gm PO DAILY #238 gm 06/12/18 Topiramate [Topamax] 100 mg PO TID 06/12/18 amLODIPine [Norvasc] 5 mg PO DAILY 06/12/18 Review of Systems - Review of Systems All systems: reviewed and no additional remarkable complaints except - Psychiatric Psychiatric: Behavioral Changes, Depression. absent: Abnormal Sleep Pattern, Anhedonia, Anxiety, Auditory Hallucinations, Change in Appetite, Change in Libido, Confusion, Difficulty Concentrating, Hallucinations, Homicidal Ideation , Hopelessness, Irritability, Memory Loss, Mood Swings, Panic Attacks, Paranoia , Suicidal Ideation, Visual Hallucinations, Tactile Hallucinations Mental Status Examination - Personal Presentation Personal Presentation: Looks stated age - Affect Affect: Broad - Motor Activity Motor Activity: Calm - Reliability in Providing Information Reliability in Providing Information: Good - Speech Speech: Organized - Mood Mood: Neutral - Formal Thought Process Formal Thought Process: No Impairment - Obsessions/Compulsions Obsessions: No Compulsions: No - Cognitive Functions Orientation: Person, Place, Situation, Time Sensorium: Alert Attention/Concentration: Attentive Abstract Thinking: [place] Estimate of Intelligence: Below average Judgement: Imparied, as evidence by: Poor judgement, Intact, as evidence by: Insight regarding need for hospitalization - Risk Risk: Diminished functioning - Limitations Limitations: Living alone DSM 5 DX - DSM 5 DSM 5 Diagnosis: Bipolar disorder recurrent severe with psychotic features - Recommended/Plan of Treatment Treatment Recommendations and Plan of Treatment: Bipolar disorder recurrent severe with psychotic features CBT Psychoeducation Supportive therapy, group therapy Topamax 100 mg po TID Trazodone for insomnia Hydroxyzine for anxiety
--- NOTE | 2018-06-18 16:02 | MRI ---
Date of service: 06/18/2018 PROCEDURE: MR LUMBAR SPINE WITHOUT CONTRAST HISTORY: Severe back pain COMPARISON: MRI lumbar spine from 11/27/2017 TECHNIQUE: Multiecho multiplanar sequences were performed through the lumbar spine without the use of intravenous contrast. FINDINGS: There is degenerative grade 1 anterior listhesis of L4 on L5. There is exaggerated lumbar lordosis. There is an acute superior endplate compression fracture in the L2 vertebral body with approximately 70 percent loss of vertebral heights and mild posterior superior retropulsion of fracture fragment with acute bone marrow edema in the remaining vertebral body. There is a subacute superior endplate compression fracture in the L3 vertebral body with mild retropulsion of posterior superior fragment and approximately 60-70 percent loss of vertebral height. There is There is a 2.3 x 2.1 cm T1 hypo intense and T2/stir hyperintense lesion in the posterior L5 vertebral body, stable since the prior examination and most compatible with a lipid poor benign hemangioma. T12-L1: No disc herniation, spinal canal stenosis or neural foraminal narrowing. L1-2: No disc herniation, spinal canal stenosis or neural foraminal narrowing. L2-3: Diffuse posterior disc bulge with left foraminal and far lateral protrusion, mild neural foraminal narrowing without spinal canal stenosis. L3-4: Posterior disc bulge without spinal canal stenosis or neural foraminal narrowing. L4-5: Broad-based central disc protrusion result in mass effect on the ventral thecal sac and in conjunction with mild ligamentum flavum infolding result in moderate spinal canal stenosis. Moderate bilateral facet arthropathy contribute to moderate to severe neural foraminal narrowing L5-S1: Diffuse posterior disc bulge in conjunction with mild ligamentum flavum infolding result in mild spinal canal stenosis. Moderate bilateral facet arthropathy contribute to moderate neural foraminal narrowing. OTHER FINDINGS: There is fatty atrophy of the paraspinous muscles. IMPRESSION: 1. Acute superior endplate compression deformity in the L2 vertebral body with mild posterior superior retropulsion of fracture fragment without spinal canal stenosis. Approximately 60-70 percent loss of vertebral height and acute bone marrow edema. 2. Subacute superior endplate compression fracture deformity in the L3 vertebral body with approximately 60-70 percent loss of vertebral height and mild posterosuperior retropulsion of fracture fragment without central spinal canal stenosis. 3. Multilevel degenerative disc disease, worse at L4-5 with broad-based central disc protrusion, mild spinal canal stenosis and [id number] neural foraminal narrowing and degenerative grade 1 anterior listhesis of L4 on L5.
[2018-06-18] MEDS: (Lantus) Insulin Glargine, Recombinant SC SCH (21:42)
[2018-06-19] MEDS: Potassium Chloride 10 mEq ER Tab PO SCH (08:36)
[2018-06-19] MEDS: Enoxaparin 40 mg Syringe SC SCH (10:21)
--- NOTE | 2018-06-19 11:25 | CP.PCM.PN ---
Subjective - Date & Time of Evaluation Date of Evaluation: 06/19/18 Time of Evaluation: 11:17 - Subjective Subjective: Patient still c?o abdominal pains. All work GI work-upp except endoscopic exams had viri negative. MRI of the thoracic and lumbar spines showed multiple vertebral fracure chronic and acute the lower lumbar spoine and scaral being acute with herniation of the disc. Could this be the cause of abdominal pains? A bone densitometry will be done to find the cause of the vertebral fractureres and if necessary will do a bone scan. She will have received 5 days of IV vanco tomorrow. Objective - Vital Signs/Intake and Output Vital Signs (last 24 hours): Temp Pulse Resp BP Pulse Ox 98.1 F 63 20 176/73 H 99 06/19/18 08:00 06/19/18 08:00 06/19/18 08:00 06/19/18 10:22 06/19/18 08:00 Intake and Output: 06/19/18 06/19/18 06:59 18:59 Intake Total 950 Balance 950 - Medications Medications: Current Medications Amlodipine Besylate (Norvasc) 5 mg PO DAILY [facility] Last Admin: 06/19/18 10:29 Dose: 5 mg Clopidogrel Bisulfate (Plavix) 75 mg PO DAILY [facility] Last Admin: 06/19/18 10:24 Dose: 75 mg Docusate Sodium (Colace) 100 mg PO BID [facility] Last Admin: 06/19/18 10:22 Dose: 100 mg Enoxaparin Sodium (Lovenox) 40 mg SC DAILY [facility] Last Admin: 06/19/18 10:21 Dose: 40 mg Famotidine (Pepcid) 20 mg PO BID [facility] Last Admin: 06/19/18 10:14 Dose: 20 mg Glipizide (Glucotrol) 5 mg PO BID [facility] Last Admin: 06/19/18 10:22 Dose: 5 mg Vancomycin HCl 500 mg/ Sodium (Chloride) 100 mls @ 100 mls/hr IVPB Q12H [facility] PRN Reason: Protocol Last Admin: 06/19/18 04:40 Dose: 100 mls/hr Insulin Glargine (Lantus) 30 unit SC [facility] Last Admin: 06/18/18 21:42 Dose: 30 units Isosorbide Mononitrate (Imdur Er) 30 mg PO BID [facility] Last Admin: 06/19/18 10:22 Dose: 30 mg Meclizine HCl (Antivert) 25 mg PO Q6 PRN PRN Reason: Dizziness Metoprolol Tartrate (Lopressor) 25 mg PO DAILY [facility] Last Admin: 06/19/18 10:22 Dose: 25 mg Montelukast Sodium (Singulair) 10 mg PO HS [facility] Last Admin: 06/18/18 21:38 Dose: 10 mg Potassium Chloride (Klor-Con 10) 10 meq PO BRK [facility] Last Admin: 06/19/18 08:36 Dose: 10 meq Rosuvastatin Calcium (Crestor) 10 mg PO HS [facility] Last Admin: 06/18/18 21:38 Dose: 10 mg Topiramate (Topamax) 100 mg PO TID [facility] Last Admin: 06/19/18 10:32 Dose: 100 mg - Labs Labs: 06/17/18 06:22 06/18/18 11:24 PT 11.8 SECONDS (9.7-12.2) 06/15/18 15:48 INR 1.1 06/15/18 15:48 APTT 28 SECONDS (21-34) 06/15/18 15:48 - Constitutional Appears: Well, No Acute Distress - Head Exam Head Exam: ATRAUMATIC, NORMAL INSPECTION, NORMOCEPHALIC - Eye Exam Pupil Exam: PERRL - ENT Exam ENT Exam: Mucous Membranes Moist, Normal External Ear Exam - Neck Exam Neck Exam: Full ROM - Respiratory Exam Respiratory Exam: Clear to Ausculation Bilateral, NORMAL BREATHING PATTERN - Cardiovascular Exam Cardiovascular Exam: REGULAR RHYTHM, +S1, +S2 - GI/Abdominal Exam GI & Abdominal Exam: Soft, Normal Bowel Sounds - Rectal Exam Rectal Exam: Deferred - Back Exam Back Exam: NORMAL INSPECTION, paraspinal tenderness - Psychiatric Exam Psychiatric exam: Anxious, Depressed - Skin Skin Exam: Dry, Intact Assessment and Plan (1) Abdominal pain Status: Acute (2) Urinary tract infection Status: Acute (3) Type 2 diabetes mellitus Status: Acute - Assessment and Plan (Free Text) Assessment: Assessment: Acute UTI CAD NIDDM Depression with anxiety. Multiple vertebtral fractures. Paranoia Plan: Plan: Continue IV Vanco till tomorrow. Orthopedic consult. Continue Insulin. Bone densitometry.
[2018-06-19] MEDS: (Lantus) Insulin Glargine, Recombinant SC SCH (21:56)
[2018-06-20] MEDS: Potassium Chloride 10 mEq ER Tab PO SCH (08:00)
[2018-06-20] MEDS: Enoxaparin 40 mg Syringe SC SCH (09:03)
--- NOTE | 2018-06-20 12:49 | CP.PCM.PN ---
Subjective - Date & Time of Evaluation Date of Evaluation: 06/20/18 Time of Evaluation: 12:43 - Subjective Subjective: Patient still C/O abdominal pains. I have discussed the case with Dr. Ady Lora the Ortho. chain sales consultant. Apparently he is familiar with this patient and he reviewed the present MRI. He acknowledges that there are new vertebral fractures. There is no history of trauma and that a more aggressive work-up should be done to find out the cause of theses fractures. Will do more tests to R/O multiple myeloma or osteoporosis. In the meantime will advise Dr. Blair patient is still in hospital so he can do the endoscopic studies to find out the cause of her persistent abdominal pains. IV vancomycin is discontinued today for she rceived 5 days of the antibiotics, and her urine culture was negative. Objective - Vital Signs/Intake and Output Vital Signs (last 24 hours): Temp Pulse Resp BP Pulse Ox 98.4 F 63 20 138/75 97 06/20/18 00:45 06/20/18 00:45 06/20/18 00:45 06/20/18 09:04 06/20/18 00:45 Intake and Output: 06/20/18 06/20/18 06:59 18:59 Intake Total 1100 Balance 1100 - Medications Medications: Current Medications Amlodipine Besylate (Norvasc) 5 mg PO DAILY [facility] Last Admin: 06/19/18 10:29 Dose: 5 mg Clopidogrel Bisulfate (Plavix) 75 mg PO DAILY [facility] Last Admin: 06/20/18 09:03 Dose: 75 mg Docusate Sodium (Colace) 100 mg PO BID [facility] Last Admin: 06/20/18 09:03 Dose: 100 mg Enoxaparin Sodium (Lovenox) 40 mg SC DAILY [facility] Last Admin: 06/20/18 09:03 Dose: 40 mg Famotidine (Pepcid) 20 mg PO BID [facility] Last Admin: 06/20/18 09:03 Dose: 20 mg Glipizide (Glucotrol) 5 mg PO BID [facility] Last Admin: 06/20/18 09:03 Dose: 5 mg Insulin Glargine (Lantus) 30 unit SC HS [facility] Last Admin: 06/19/18 21:56 Dose: 30 units Isosorbide Mononitrate (Imdur Er) 30 mg PO BID [facility] Last Admin: 06/20/18 09:03 Dose: 30 mg Meclizine HCl (Antivert) 25 mg PO Q6 PRN PRN Reason: Dizziness Last Admin: 06/20/18 09:03 Dose: 25 mg Metoprolol Tartrate (Lopressor) 25 mg PO DAILY [facility] Last Admin: 06/20/18 09:04 Dose: 25 mg Montelukast Sodium (Singulair) 10 mg PO HS [facility] Last Admin: 06/19/18 21:56 Dose: 10 mg Potassium Chloride (Klor-Con 10) 10 meq PO BRK [facility] Last Admin: 06/20/18 08:00 Dose: 10 meq Rosuvastatin Calcium (Crestor) 10 mg PO HS [facility] Last Admin: 06/19/18 21:56 Dose: 10 mg Topiramate (Topamax) 100 mg PO TID [facility] Last Admin: 06/19/18 18:15 Dose: 100 mg - Labs Labs: 06/17/18 06:22 06/18/18 11:24 PT 11.8 SECONDS (9.7-12.2) 06/15/18 15:48 INR 1.1 06/15/18 15:48 APTT 28 SECONDS (21-34) 06/15/18 15:48 - Constitutional Appears: No Acute Distress, Chronically Ill - Eye Exam Eye Exam: Normal appearance Pupil Exam: PERRL - ENT Exam ENT Exam: Mucous Membranes Moist, Normal External Ear Exam - Neck Exam Neck Exam: Full ROM, Normal Inspection - Respiratory Exam Respiratory Exam: Clear to Ausculation Bilateral, NORMAL BREATHING PATTERN - Cardiovascular Exam Cardiovascular Exam: REGULAR RHYTHM, +S1, +S2 - GI/Abdominal Exam GI & Abdominal Exam: Soft, Tenderness, Normal Bowel Sounds - Rectal Exam Rectal Exam: Deferred - Extremities Exam Extremities Exam: Normal Inspection - Back Exam Back Exam: paraspinal tenderness - Neurological Exam Neurological Exam: Alert, Awake, Oriented x3 - Psychiatric Exam Psychiatric exam: Anxious, Depressed - Skin Skin Exam: Dry, Intact, Normal Color, Warm Assessment and Plan (1) Abdominal pain Status: Acute (2) Urinary tract infection Status: Acute (3) Type 2 diabetes mellitus Status: Acute - Assessment and Plan (Free Text) Assessment: Assessment: UTI resolved. Abdominal pains cause to be determined. Multiple vertebral fractures cause to be determined. NIDDM. Depression wth anxiety. Paranoia. Plan: Plan: Work-up for cause of multiple vertebral fractures. Gi work-up upper and lower endoscopy.
--- NOTE | 2018-06-20 12:50 | CP.PCM.PN ---
Subjective - Date & Time of Evaluation Date of Evaluation: 06/20/18 Time of Evaluation: 12:47 - Subjective Subjective: No new pain or diarrhea. Results of spine work up are noted. No bleeding but no FOB testing reported (specimen was witnessed to have been sent) Objective - Vital Signs/Intake and Output Vital Signs (last 24 hours): Temp Pulse Resp BP Pulse Ox 98.4 F 63 20 138/75 97 06/20/18 00:45 06/20/18 00:45 06/20/18 00:45 06/20/18 09:04 06/20/18 00:45 Intake and Output: 06/20/18 06/20/18 06:59 18:59 Intake Total 1100 Balance 1100 - Medications Medications: Current Medications Amlodipine Besylate (Norvasc) 5 mg PO DAILY [facility] Last Admin: 06/19/18 10:29 Dose: 5 mg Clopidogrel Bisulfate (Plavix) 75 mg PO DAILY [facility] Last Admin: 06/20/18 09:03 Dose: 75 mg Docusate Sodium (Colace) 100 mg PO BID [facility] Last Admin: 06/20/18 09:03 Dose: 100 mg Enoxaparin Sodium (Lovenox) 40 mg SC DAILY [facility] Last Admin: 06/20/18 09:03 Dose: 40 mg Famotidine (Pepcid) 20 mg PO BID [facility] Last Admin: 06/20/18 09:03 Dose: 20 mg Glipizide (Glucotrol) 5 mg PO BID [facility] Last Admin: 06/20/18 09:03 Dose: 5 mg Insulin Glargine (Lantus) 30 unit SC HS [facility] Last Admin: 06/19/18 21:56 Dose: 30 units Isosorbide Mononitrate (Imdur Er) 30 mg PO BID [facility] Last Admin: 06/20/18 09:03 Dose: 30 mg Meclizine HCl (Antivert) 25 mg PO Q6 PRN PRN Reason: Dizziness Last Admin: 06/20/18 09:03 Dose: 25 mg Metoprolol Tartrate (Lopressor) 25 mg PO DAILY [facility] Last Admin: 06/20/18 09:04 Dose: 25 mg Montelukast Sodium (Singulair) 10 mg PO HS [facility] Last Admin: 06/19/18 21:56 Dose: 10 mg Potassium Chloride (Klor-Con 10) 10 meq PO BRK [facility] Last Admin: 06/20/18 08:00 Dose: 10 meq Rosuvastatin Calcium (Crestor) 10 mg PO HS [facility] Last Admin: 06/19/18 21:56 Dose: 10 mg Topiramate (Topamax) 100 mg PO TID [facility] Last Admin: 06/19/18 18:15 Dose: 100 mg - Labs Labs: 06/17/18 06:22 06/18/18 11:24 PT 11.8 SECONDS (9.7-12.2) 06/15/18 15:48 INR 1.1 06/15/18 15:48 APTT 28 SECONDS (21-34) 06/15/18 15:48 - Constitutional Appears: No Acute Distress - Respiratory Exam Respiratory Exam: NORMAL BREATHING PATTERN - Cardiovascular Exam Cardiovascular Exam: REGULAR RHYTHM, +S1 - GI/Abdominal Exam GI & Abdominal Exam: Soft, Normal Bowel Sounds. absent: Tenderness - Extremities Exam Extremities Exam: Normal Inspection Assessment and Plan (1) Lower abdominal pain Assessment & Plan: Chronic and may represent L/S radiculopathy given the findings on CT Scan Status: Acute (2) Blood in stool Assessment & Plan: No further bleeding. No stool OB reported by lab as yet. Plan for out patient colonoscopy +/- EGD as needed. Status: Acute (3) Urinary tract infection Assessment & Plan: On Vanco day #6 Status: Acute (4) Abnormal alkaline phosphatase test Assessment & Plan: Repeat LFT's. Likely to be bone and not liver etiology. ALK PHOS Isos also ordered and not reported. Status: Acute
--- NOTE | 2018-06-20 15:00 | CP.PCM.CON ---
History of Present Illness - History of Present Illness History of Present Illness: SPINE Full consult dictated. Pt needs TLSO, custom fitted, to be worn when OOB. Needs aggressive w/u of her osteoporosis. ? IR bx of lesion in L5. Surgical treatment of spondylolisthesis/stenosis no longer an option given her severe osteoporosis. Past Patient History - Infectious Disease Hx of Infectious Diseases: None - Tetanus Immunizations Tetanus Immunization: Unknown - Past Medical History & Family History Past Medical History?: Yes - Past Social History Smoking Status: Never Smoked Alcohol: None Home Situation {Lives}: Alone - CARDIAC Hx Cardiac Disorders: Yes Hx Hypercholesterolemia: Yes Hx Hypertension: Yes - PULMONARY Hx Respiratory Disorders: Yes Hx Asthma: Yes - NEUROLOGICAL HX Cerebrovascular Accident: Yes - HEENT Hx HEENT Problems: Yes Other/Comment: wear eyeglasses - RENAL Hx Chronic Kidney Disease: No - ENDOCRINE/METABOLIC Hx Diabetes Mellitus Type 1: Yes Hx Diabetes Mellitus Type 2: Yes - HEMATOLOGICAL/ONCOLOGICAL Hx Cirrhosis: No Hx Hepatitis A: No Hx Hepatitis B: No Hx Hepatitis C: No Hx Human Immunodeficiency Virus (HIV): No - INTEGUMENTARY Hx Dermatological Problems: No Other/Comment: Hx skin rash - MUSCULOSKELETAL/RHEUMATOLOGICAL Hx Musculoskeletal Disorders: Yes Hx Back Pain: Yes Hx Falls: No - GASTROINTESTINAL Hx Gastrointestinal Disorders: Yes Hx Bowel Surgery: No Hx Clostridium Difficile: No Hx Colitis: No Hx Colostomy: No Hx Constipation: No Hx Crohn's Disease: No Hx Diarrhea: No Hx Diverticulitis: No Hx Esophageal Varices: No Hx Fatty Liver Disease: No Hx Gall Bladder Disease: No Hx Gastritis: Yes Hx Gastroesophageal Reflux: Yes Hx Hemorrhoids: Yes Hx Ileostomy: No Hx Irritable Bowel: No Hx Liver Failure: No Hx Nausea: No Hx Pancreatitis: No HX Swallowing Problems: No Hx Ulcer: No Hx Vomiting: No - GENITOURINARY/GYNECOLOGICAL Hx Genitourinary Disorders: Yes Hx Sexually Transmitted Disorders: No Hx Urinary Tract Infection: Yes - PSYCHIATRIC Hx Anxiety: Yes Hx Bipolar Disorder: Yes Hx Depression: Yes Hx Paranoia: Yes Hx Schizophrenia: Yes Hx Substance Use: No - SURGICAL HISTORY Hx Appendectomy: Yes Hx Coronary Stent: Yes (PCI of the LAD with stent insertion ( [facility]) in 2007 in [place].) - ANESTHESIA Hx Anesthesia: Yes Hx Anesthesia Reactions: No Hx Malignant Hyperthermia: No Meds Allergies/Adverse Reactions: Allergies Allergy/AdvReac Type Severity Reaction Status Date / Time Penicillins Allergy RASH Verified 06/15/18 14:35 - Medications Medications: Current Medications Amlodipine Besylate (Norvasc) 5 mg PO DAILY [facility] Last Admin: 06/20/18 10:00 Dose: 5 mg Clopidogrel Bisulfate (Plavix) 75 mg PO DAILY [facility] Last Admin: 06/20/18 09:03 Dose: 75 mg Docusate Sodium (Colace) 100 mg PO BID [facility] Last Admin: 06/20/18 09:03 Dose: 100 mg Enoxaparin Sodium (Lovenox) 40 mg SC DAILY [facility] Last Admin: 06/20/18 09:03 Dose: 40 mg Famotidine (Pepcid) 20 mg PO BID [facility] Last Admin: 06/20/18 09:03 Dose: 20 mg Glipizide (Glucotrol) 5 mg PO BID [facility] Last Admin: 06/20/18 09:03 Dose: 5 mg Insulin Glargine (Lantus) 30 unit SC [facility] Last Admin: 06/19/18 21:56 Dose: 30 units Isosorbide Mononitrate (Imdur Er) 30 mg PO BID [facility] Last Admin: 06/20/18 09:03 Dose: 30 mg Meclizine HCl (Antivert) 25 mg PO Q6 PRN PRN Reason: Dizziness Last Admin: 06/20/18 09:03 Dose: 25 mg Metoprolol Tartrate (Lopressor) 25 mg PO DAILY [facility] Last Admin: 06/20/18 09:04 Dose: 25 mg Montelukast Sodium (Singulair) 10 mg PO HS [facility] Last Admin: 06/19/18 21:56 Dose: 10 mg Potassium Chloride (Klor-Con 10) 10 meq PO BRK [facility] Last Admin: 06/20/18 08:00 Dose: 10 meq Rosuvastatin Calcium (Crestor) 10 mg PO HS [facility] Last Admin: 06/19/18 21:56 Dose: 10 mg Topiramate (Topamax) 100 mg PO TID [facility] Last Admin: 06/20/18 13:10 Dose: 100 mg Results - Vital Signs Recent Vital Signs: Last Vital Signs Temp 98.4 F 06/20/18 00:45 Pulse 63 06/20/18 00:45 Resp 20 06/20/18 00:45 BP 138/75 06/20/18 09:04 Pulse Ox 97 06/20/18 00:45 - Labs Result Diagrams: 06/17/18 06:22 06/18/18 11:24
[2018-06-20 17:06] LABS: BASO % 0.3 % (0.0-2.0); EOS % 0.5 % (0.0-4.0); HEMOGLOBIN 11.1 g/dL (11.0-16.0); LYMPH # 1.1 K/uL (1.0-4.3); LYMPH % 28.2 % (20.0-40.0); MEAN CELL VOLUME 96.2 fL (81.0-99.0); MEAN CORPUSCULAR HEMOGLOBIN 32.2 pg (27.0-31.0); MEAN CORPUSCULAR HGB CONC 33.4 g/dL (33.0-37.0); MEAN PLATELET VOLUME 10.5 fL (7.2-11.7); MONO # 1.2 K/uL (0.0-0.8); MONO % 30.1 % (0.0-10.0); NEUT # 1.6 K/uL (1.8-7.0); NEUT % 40.9 % (50.0-75.0); NRBC % 0.1 % (0.0-2.0); PLATELET COUNT 130 K/uL (130-400); RBC 3.45 Mil/uL (3.80-5.20); RED CELL DISTRIBUTION WIDTH 13.2 % (11.5-14.5)
[2018-06-20 18:32] LABS: LARGE PLATELETS PRESENT; LYMPHOCYTE 20 % (20-40); MONOCYTE 5 % (0-10); NEUTROPHIL 75 % (50-75); PLATELET ESTIMATE SLIGHTLY DECREASED (NORMAL); TOTAL CELLS COUNTED 100
[2018-06-20] MEDS: (Lantus) Insulin Glargine, Recombinant SC SCH (21:24)
[2018-06-21] MEDS: Potassium Chloride 10 mEq ER Tab PO SCH (08:00)
[2018-06-21 08:49] LABS: HEMOGLOBIN 10.8 g/dL (11.0-16.0); MEAN CELL VOLUME 96.2 fL (81.0-99.0); MEAN CORPUSCULAR HEMOGLOBIN 32.5 pg (27.0-31.0); MEAN CORPUSCULAR HGB CONC 33.8 g/dL (33.0-37.0); MEAN PLATELET VOLUME 10.5 fL (7.2-11.7); RBC 3.33 Mil/uL (3.80-5.20); RED CELL DISTRIBUTION WIDTH 13.5 % (11.5-14.5); WHITE BLOOD COUNT 3.4 K/uL (4.8-10.8)
[2018-06-21 09:08] LABS: ALB/GLOB RATIO 1.3 (1.0-2.1); ALBUMIN 3.4 g/dL (3.5-5.0); BILIRUBIN,DIRECT 0.3 mg/dL (0.0-0.4)
[2018-06-21] MEDS: Enoxaparin 40 mg Syringe SC SCH (09:08)
[2018-06-21] MEDS ORDERED: (Novolog) Insulin Aspart, Recombinant 100 u/ml 10 ml vial SC STA (11:57)
--- NOTE | 2018-06-21 12:04 | CP.PCM.PN ---
Subjective - Date & Time of Evaluation Date of Evaluation: 06/21/18 Time of Evaluation: 12:02 - Subjective Subjective: No new complaints. Patient is on Plavix and Lovenox which both need to be held to facilitate colonoscopy. Objective - Vital Signs/Intake and Output Vital Signs (last 24 hours): Temp Pulse Resp BP Pulse Ox 98.2 F 72 20 130/78 98 06/21/18 00:00 06/21/18 00:00 06/21/18 00:00 06/21/18 09:07 06/21/18 00:00 Intake and Output: 06/21/18 06/21/18 06:59 18:59 Intake Total 250 Balance 250 - Medications Medications: Current Medications Amlodipine Besylate (Norvasc) 5 mg PO DAILY [facility] Last Admin: 06/21/18 09:06 Dose: 5 mg Bisacodyl (Dulcolax) 10 mg PO ONCE ONE Stop: 06/22/18 17:01 Clopidogrel Bisulfate (Plavix) 75 mg PO DAILY [facility] Last Admin: 06/21/18 09:07 Dose: 75 mg Docusate Sodium (Colace) 100 mg PO BID [facility] Last Admin: 06/21/18 09:07 Dose: 100 mg Enoxaparin Sodium (Lovenox) 40 mg SC DAILY [facility] Last Admin: 06/21/18 09:08 Dose: 40 mg Famotidine (Pepcid) 20 mg PO BID [facility] Last Admin: 06/21/18 09:07 Dose: 20 mg Glipizide (Glucotrol) 5 mg PO BID [facility] Last Admin: 06/21/18 09:06 Dose: 5 mg Insulin Aspart (Novolog) 10 unit SC STAT STA Stop: 06/21/18 11:58 Insulin Glargine (Lantus) 30 unit SC HS [facility] Last Admin: 06/20/18 21:24 Dose: 30 units Isosorbide Mononitrate (Imdur Er) 30 mg PO BID [facility] Last Admin: 06/21/18 09:07 Dose: 30 mg Meclizine HCl (Antivert) 25 mg PO Q6 PRN PRN Reason: Dizziness Last Admin: 06/21/18 09:07 Dose: 25 mg Metoprolol Tartrate (Lopressor) 25 mg PO DAILY [facility] Last Admin: 06/21/18 09:07 Dose: 25 mg Montelukast Sodium (Singulair) 10 mg PO HS [facility] Last Admin: 06/20/18 21:23 Dose: 10 mg Polyethylene Glycol/Electrolytes (Golytely) 4,000 ml PO ONCE ONE Stop: 06/22/18 19:01 Potassium Chloride (Klor-Con 10) 10 meq PO BRK [facility] Last Admin: 06/21/18 08:00 Dose: 10 meq Rosuvastatin Calcium (Crestor) 10 mg PO HS [facility] Last Admin: 06/20/18 21:23 Dose: 10 mg Topiramate (Topamax) 100 mg PO TID [facility] Last Admin: 06/21/18 09:06 Dose: 100 mg - Labs Labs: 06/21/18 08:42 06/18/18 11:24 PT 11.8 SECONDS (9.7-12.2) 06/15/18 15:48 INR 1.1 06/15/18 15:48 APTT 28 SECONDS (21-34) 06/15/18 15:48 - Constitutional Appears: No Acute Distress - Head Exam Head Exam: ATRAUMATIC, NORMOCEPHALIC - Respiratory Exam Respiratory Exam: NORMAL BREATHING PATTERN - Cardiovascular Exam Cardiovascular Exam: REGULAR RHYTHM - GI/Abdominal Exam GI & Abdominal Exam: Soft, Normal Bowel Sounds. absent: Tenderness - Extremities Exam Extremities Exam: Normal Inspection Assessment and Plan (1) Lower abdominal pain Assessment & Plan: Likely to be radicular from L/S spine disease/fractures/demineralization. Plan to r/o colonic findings. Status: Acute (2) Blood in stool Assessment & Plan: Current plan for EGD/Colonoscopy on friday though Plavix typically needs to be held for 4-7 days to facilitate polypectomy if needed. Will plan for exam but may not be able to remove large polyp if found. Plavix held as of today and will stop Lovenox after dose tomorrow. Status: Acute (3) Urinary tract infection Assessment & Plan: On Vanco. Repeat Urine studies. Status: Acute (4) Abnormal alkaline phosphatase test Assessment & Plan: Isoenzymes ordered. Status: Acute
--- NOTE | 2018-06-21 15:25 | CP.PCM.PN ---
Subjective - Date & Time of Evaluation Date of Evaluation: 06/21/18 Time of Evaluation: 15:22 - Subjective Subjective: Patient seen and examined. Bone densitometry done yaesterday and still no results 24 [address] later[address] Lora, and notes very much appreciated. Awaiting LABRORATORY REPORTS, AND RADIOLOGY REPORTS. wILL GET BIOPSY ONCE REPORTS ARE IN. Objective - Vital Signs/Intake and Output Vital Signs (last 24 hours): Temp Pulse Resp BP Pulse Ox 98.2 F 100 H 20 130/78 98 06/21/18 08:00 06/21/18 08:00 06/21/18 08:00 06/21/18 09:07 06/21/18 08:00 Intake and Output: 06/21/18 06/21/18 06:59 18:59 Intake Total 590 Balance 590 - Medications Medications: Current Medications Amlodipine Besylate (Norvasc) 5 mg PO DAILY [facility] Last Admin: 06/21/18 09:06 Dose: 5 mg Bisacodyl (Dulcolax) 10 mg PO ONCE ONE Stop: 06/22/18 17:01 Clopidogrel Bisulfate (Plavix) 75 mg PO DAILY [facility] Last Admin: 06/21/18 09:07 Dose: 75 mg Enoxaparin Sodium (Lovenox) 40 mg SC DAILY [facility] Last Admin: 06/21/18 09:08 Dose: 40 mg Famotidine (Pepcid) 20 mg PO BID [facility] Last Admin: 06/21/18 09:07 Dose: 20 mg Glipizide (Glucotrol) 5 mg PO BID [facility] Last Admin: 06/21/18 09:06 Dose: 5 mg Insulin Glargine (Lantus) 30 unit SC [facility] Last Admin: 06/20/18 21:24 Dose: 30 units Isosorbide Mononitrate (Imdur Er) 30 mg PO BID [facility] Last Admin: 06/21/18 09:07 Dose: 30 mg Meclizine HCl (Antivert) 25 mg PO Q6 PRN PRN Reason: Dizziness Last Admin: 06/21/18 09:07 Dose: 25 mg Metoprolol Tartrate (Lopressor) 25 mg PO DAILY [facility] Last Admin: 06/21/18 09:07 Dose: 25 mg Montelukast Sodium (Singulair) 10 mg PO [facility] Last Admin: 06/20/18 21:23 Dose: 10 mg Polyethylene Glycol/Electrolytes (Golytely) 4,000 ml PO ONCE ONE Stop: 06/22/18 19:01 Potassium Chloride (Klor-Con 10) 10 meq PO BRK [facility] Last Admin: 06/21/18 08:00 Dose: 10 meq Rosuvastatin Calcium (Crestor) 10 mg PO HS [facility] Last Admin: 06/20/18 21:23 Dose: 10 mg Topiramate (Topamax) 100 mg PO TID [facility] Last Admin: 06/21/18 13:55 Dose: 100 mg - Labs Labs: 06/21/18 08:42 06/18/18 11:24 PT 11.8 SECONDS (9.7-12.2) 06/15/18 15:48 INR 1.1 06/15/18 15:48 APTT 28 SECONDS (21-34) 06/15/18 15:48 - Constitutional Appears: No Acute Distress, Chronically Ill - Head Exam Head Exam: ATRAUMATIC, NORMAL INSPECTION, NORMOCEPHALIC - Eye Exam Eye Exam: Normal appearance - ENT Exam ENT Exam: Normal External Ear Exam - Neck Exam Neck Exam: Full ROM - Respiratory Exam Respiratory Exam: Clear to Ausculation Bilateral - Cardiovascular Exam Cardiovascular Exam: REGULAR RHYTHM, +S1, +S2 - GI/Abdominal Exam GI & Abdominal Exam: Soft, Normal Bowel Sounds - Rectal Exam Rectal Exam: Deferred - Extremities Exam Extremities Exam: Full ROM - Back Exam Back Exam: paraspinal tenderness - Neurological Exam Neurological Exam: Alert, Awake, Oriented x3 - Psychiatric Exam Psychiatric exam: Anxious, Depressed - Skin Skin Exam: Dry, Intact, Normal Color, Warm Assessment and Plan (1) Abdominal pain Status: Acute (2) Urinary tract infection Status: Acute (3) Type 2 diabetes mellitus Status: Acute - Assessment and Plan (Free Text) Assessment: Assessment: Abdoiminal pains cause to be determined. Multiple vertebral fracures. CAD. Depression with anxiety. Paranoia. NIDDM
--- NOTE | 2018-06-21 17:50 | RAD ---
Date of service: 06/21/2018 PROCEDURE: Bone survey HISTORY: r/o multiple myeloma COMPARISON: Comparison is made with the prior MRI of the thoracic and lumbar spine prior CT of the abdomen and pelvis and prior CT of the head without contrast. TECHNIQUE: X-rays of the skull spine chest abdomen and pelvis and upper and lower extremities were obtained. FINDINGS: No evidence of focal lytic bony lesions in the skeleton. Multiple compression deformity noted in the lower thoracic and lumbar spine likely due to osteoporosis. IMPRESSION: No evidence of lytic bony lesion. Compression deformity in the lumbar spine likely due to osteoporosis.
[2018-06-21] MEDS: (Lantus) Insulin Glargine, Recombinant SC SCH (21:08)
--- NOTE | 2018-06-22 08:27 | CON ---
Copied To: Ady Lora MD Attending MD: Ady Lora MD DATE: 06/20/2018 REASON FOR CONSULTATION: Multiple spine fractures. HISTORY OF PRESENT ILLNESS: The patient is a 67-year-old young woman who was seen in our office approximately 4 to 6 weeks ago. At that time, she was complaining of significant pain in her lower back with difficulty ambulating due to claudication pains in her legs. An MRI that had been done in November revealed what appeared to be a healing compression fracture of L3 along with a spondylolisthesis at L4-L5 and degenerative disk disease at L5-S1. She also had significant spinal stenosis at the L4-L5 level. The recommendations at that time was to do an L4-S1 laminectomy and fusion in order to stabilize her lumbar spine and decompress the thecal sac and the nerve roots. She stated she wanted to talk to her family and think it over, and never got back to us, despite several calls from the office, trying to follow up with her. She now states that she is here because she has had 3 weeks of severe abdominal pain. As to her back pain, she still relates the same issues with her mid to lower lumbar region. She denies any new trauma. She denies doing any heavy lifting or carrying. No loss of bowel or bladder control. No radicular complaints per se outside the difficulty walking. She uses her "trolley" as she puts it, which is a rolling walker, which keeps her in a flexed position as she is ambulating. Because of her new complaints of back pain, she had new MRIs done to thoracic and lumbar spine during this admission. PAST MEDICAL HISTORY: Significant for diabetes, hypertension, bipolar disorder, anxiety disorder, asthma, depressive disorder, hypercholesterolemia, and osteoporosis. MEDICATIONS: Listed on the chart. ALLERGIES: SHE IS ALLERGIC TO PENICILLIN. PAST SURGICAL HISTORY: Significant for an appendectomy, placement of coronary stent. PHYSICAL EXAMINATION: She still complains of tenderness in the mid to lower lumbosacral region. She moves both lower extremities actively. Grossly, her neurologic exam remains intact. No clonus or Babinski is present. LABORATORY DATA: Her MRIs are reviewed. Compared to her 11/27/2017 study, she now has markedly more collapse at the L3 level and new fractures at T12 and L2. She has what was read as a lipid poor, benign hemangioma in the L5 body, but it appears to my review to be enhancing more on this study than it did back in November. No other new fractures are noted in the MRI of the thoracic spine. ASSESSMENT AND PLAN: This young lady obviously is severely osteoporotic. She, just by comparing her studies, has two new fractures and a marked worsening of her third fracture with no traumatic incidents in the last 6 months. She is not on any type of calcium replacement or other anti-osteoporotic regimens. I do not know if she has any other systemic issues going on that could be responsible for the osteoporosis. She does not use steroids, she is not a smoker, and no other significant history is mentioned. I do not know if she could have some type of myeloma or something, and perhaps, this is not a benign hemangioma in the L5 body. She needs a form-fitting (custom-made) thoracolumbosacral orthosis, TLSO, to help support her spine, and hopefully, help prevent any more flexion movements that might worsen the present fractures or lead to further fractures. Again, she needs an aggressive workup in terms of looking at the blood and urinary studies for calcium, etc., parathyroid hormone, etc. She can be mobilized as her pain allows, but preferably with the brace. Thank you again for allowing me to participate in the care of this patient. Ady Lora MD JAMES
[2018-06-22] MEDS: Potassium Chloride 10 mEq ER Tab PO SCH (08:50)
[2018-06-22] MEDS: Enoxaparin 40 mg Syringe SC SCH (09:55)
--- NOTE | 2018-06-22 11:02 | CP.PCM.PN ---
Subjective - Date & Time of Evaluation Date of Evaluation: 06/22/18 Time of Evaluation: 10:58 - Subjective Subjective: Patient seen and examined. Bone survey no lytic lesions anywhere. ?Osteoporosis.? Bone densitometry ordered 4 days ago still not done. Bone scan to be done today. Tests for protein electrophorosis, Bemce Pedersen protein was sent out. No results as of today. Objective - Vital Signs/Intake and Output Vital Signs (last 24 hours): Temp Pulse Resp BP Pulse Ox 98.3 F 61 20 163/73 H 97 06/22/18 08:33 06/22/18 08:33 06/22/18 08:33 06/22/18 09:50 06/22/18 08:33 Intake and Output: 06/22/18 06/22/18 06:59 18:59 Intake Total 300 Balance 300 - Medications Medications: Current Medications Amlodipine Besylate (Norvasc) 5 mg PO DAILY [facility] Last Admin: 06/22/18 09:50 Dose: 5 mg Bisacodyl (Dulcolax) 10 mg PO ONCE ONE Stop: 06/22/18 17:01 Clopidogrel Bisulfate (Plavix) 75 mg PO DAILY [facility] Last Admin: 06/21/18 09:07 Dose: 75 mg Enoxaparin Sodium (Lovenox) 40 mg SC DAILY [facility] Last Admin: 06/22/18 09:55 Dose: Not Given Famotidine (Pepcid) 20 mg PO BID [facility] Last Admin: 06/22/18 09:51 Dose: 20 mg Glipizide (Glucotrol) 5 mg PO BID [facility] Last Admin: 06/22/18 09:51 Dose: 5 mg Insulin Glargine (Lantus) 30 unit SC [facility] Last Admin: 06/21/18 21:08 Dose: 30 units Isosorbide Mononitrate (Imdur Er) 30 mg PO BID [facility] Last Admin: 06/22/18 09:51 Dose: 30 mg Meclizine HCl (Antivert) 25 mg PO Q6 PRN PRN Reason: Dizziness Last Admin: 06/21/18 09:07 Dose: 25 mg Metoprolol Tartrate (Lopressor) 25 mg PO DAILY [facility] Last Admin: 06/22/18 09:50 Dose: 25 mg Montelukast Sodium (Singulair) 10 mg PO [facility] Last Admin: 06/21/18 21:14 Dose: 10 mg Polyethylene Glycol/Electrolytes (Golytely) 4,000 ml PO ONCE ONE Stop: 06/22/18 19:01 Potassium Chloride (Klor-Con 10) 10 meq PO BRK [facility] Last Admin: 06/22/18 08:50 Dose: 10 meq Rosuvastatin Calcium (Crestor) 10 mg PO HS [facility] Last Admin: 06/21/18 21:08 Dose: 10 mg Topiramate (Topamax) 100 mg PO TID [facility] Last Admin: 06/22/18 09:50 Dose: 100 mg - Labs Labs: 06/21/18 08:42 06/18/18 11:24 PT 11.8 SECONDS (9.7-12.2) 06/15/18 15:48 INR 1.1 06/15/18 15:48 APTT 28 SECONDS (21-34) 06/15/18 15:48 - Constitutional Appears: No Acute Distress, Chronically Ill - Head Exam Head Exam: ATRAUMATIC, NORMAL INSPECTION - Eye Exam Pupil Exam: PERRL - ENT Exam ENT Exam: Mucous Membranes Moist, Normal Exam - Respiratory Exam Respiratory Exam: Clear to Ausculation Bilateral, NORMAL BREATHING PATTERN - Cardiovascular Exam Cardiovascular Exam: +S1, +S2 - GI/Abdominal Exam GI & Abdominal Exam: Soft - Rectal Exam Rectal Exam: Deferred - Extremities Exam Extremities Exam: Normal Inspection - Neurological Exam Neurological Exam: Alert, Awake Neuro motor strength exam: Left Upper Extremity: 0, Right Upper Extremity: 0, Left Lower Extremity: 0, Right Lower Extremity: 0 - Psychiatric Exam Psychiatric exam: Anxious, Depressed - Skin Skin Exam: Dry, Intact, Normal Color Assessment and Plan (1) Abdominal pain Status: Acute (2) Urinary tract infection Status: Acute (3) Type 2 diabetes mellitus Status: Acute - Assessment and Plan (Free Text) Assessment: Assessment: Multiple fractures, thoracic and lumbar. Abdominal pains cause to be determined. NIDDM Drepression with anxiety. Paranoia. Hypertension. Plan: Plan: Bone densitometry. Bone scan. Endoscopy in AM. Check tests for M. M.
--- NOTE | 2018-06-22 13:35 | NM ---
Date of service: 06/22/2018 PROCEDURE: Whole Body Bone Scan HISTORY: Vertebral body fractures. COMPARISON: 06/18/2018 thoracolumbar MRI. Summary of findings on the comparison examination: Likely subacute or chronic compression fractures T12 and L1. [id number] paravertebral paraspinous soft tissue mass extending from T11-L1. Acute endplate compression deformity L2. Subacute superior endplate compression deformity L3. Multilevel degenerative changes lower lumbar spine TECHNIQUE: Following administration of 24.2 miCu of Tc MDP multiplanar whole body images were obtained. FINDINGS: Evidence for bony metastatic disease: None. Degenerative uptake: Lumbar spine and lower extremities. Physiologic uptake: Normal physiologic activity in the kidneys. Other findings: Foci of abnormal increased uptake lower thoracic and upper lumbar spine consistent with findings on recent thoracolumbar MRI. IMPRESSION: No evidence of bony metastatic disease. Multiple abnormal foci of increased uptake lower thoracic and upper lumbar spine consistent with fractures described greater detail in the original MRI reports of the thoracolumbar spine 06/18/2018. Lower extremity degenerative change.
[2018-06-22] MEDS ORDERED: Bisacodyl 5mg EC Tab PO ONE (17:00)
[2018-06-22] MEDS: Dextrose 5%/0.45% NS 1,000 ML IV SCH (17:22)
--- NOTE | 2018-06-22 17:27 | CP.PCM.PN ---
Subjective - Date & Time of Evaluation Date of Evaluation: 06/22/18 Time of Evaluation: 17:24 - Subjective Subjective: Patient has started the preparation. Plavix held as of yesterday. Objective - Vital Signs/Intake and Output Vital Signs (last 24 hours): Temp Pulse Resp BP Pulse Ox 98.6 F 65 20 172/73 H 99 06/22/18 16:00 06/22/18 16:00 06/22/18 16:00 06/22/18 16:00 06/22/18 16:00 Intake and Output: 06/22/18 06/22/18 06:59 18:59 Intake Total 300 Balance 300 - Medications Medications: Current Medications Amlodipine Besylate (Norvasc) 10 mg PO DAILY [facility] Clopidogrel Bisulfate (Plavix) 75 mg PO DAILY [facility] Last Admin: 06/21/18 09:07 Dose: 75 mg Enoxaparin Sodium (Lovenox) 40 mg SC DAILY [facility] Last Admin: 06/22/18 09:55 Dose: Not Given Famotidine (Pepcid) 20 mg PO BID [facility] Last Admin: 06/22/18 09:51 Dose: 20 mg Glipizide (Glucotrol) 5 mg PO BID [facility] Last Admin: 06/22/18 09:51 Dose: 5 mg Dextrose/Sodium Chloride (Dextrose 5%/0.45% Ns 1000 Ml) 1,000 mls @ 50 mls/hr IV .Q20H [facility] Insulin Glargine (Lantus) 30 unit SC HS [facility] Last Admin: 06/21/18 21:08 Dose: 30 units Isosorbide Mononitrate (Imdur Er) 30 mg PO BID [facility] Last Admin: 06/22/18 09:51 Dose: 30 mg Meclizine HCl (Antivert) 25 mg PO Q6 PRN PRN Reason: Dizziness Last Admin: 06/21/18 09:07 Dose: 25 mg Metoprolol Tartrate (Lopressor) 25 mg PO DAILY [facility] Last Admin: 06/22/18 09:50 Dose: 25 mg Montelukast Sodium (Singulair) 10 mg PO HS [facility] Last Admin: 06/21/18 21:14 Dose: 10 mg Polyethylene Glycol/Electrolytes (Golytely) 4,000 ml PO ONCE ONE Stop: 06/22/18 19:01 Potassium Chloride (Klor-Con 10) 10 meq PO BRK [facility] Last Admin: 06/22/18 08:50 Dose: 10 meq Rosuvastatin Calcium (Crestor) 10 mg PO HS [facility] Last Admin: 06/21/18 21:08 Dose: 10 mg Topiramate (Topamax) 100 mg PO TID [facility] Last Admin: 06/22/18 14:17 Dose: 100 mg - Labs Labs: 06/21/18 08:42 06/18/18 11:24 PT 11.8 SECONDS (9.7-12.2) 06/15/18 15:48 INR 1.1 06/15/18 15:48 APTT 28 SECONDS (21-34) 06/15/18 15:48 - Constitutional Appears: No Acute Distress - Respiratory Exam Respiratory Exam: NORMAL BREATHING PATTERN - Cardiovascular Exam Cardiovascular Exam: REGULAR RHYTHM - GI/Abdominal Exam GI & Abdominal Exam: Soft, Normal Bowel Sounds. absent: Tenderness Assessment and Plan (1) Lower abdominal pain Status: Acute (2) Blood in stool Assessment & Plan: For EGD and Colonoscopy in am. May not be able to remove large polyps due to short interval off Plavix! Desire to get her scoped prior to discharge or any orthopedic procedures. Will need Dr Barry to adjust insulin and give IV fluids for purpose of prep and NPO in am. Status: Acute (3) Urinary tract infection Status: Resolved (4) Abnormal alkaline phosphatase test Assessment & Plan: Alk Phos isoenzymes ordered and not reported. May be due to bone destruction. Status: Acute
[2018-06-22] MEDS ORDERED: Peg-Electrolyte Oral Soln 4L (Golytely) PO ONE (19:00)
[2018-06-22 19:58] LABS: HEMOGLOBIN 12.5 g/dL (11.0-16.0); MEAN CELL VOLUME 95.6 fL (81.0-99.0); MEAN CORPUSCULAR HEMOGLOBIN 32.2 pg (27.0-31.0); MEAN CORPUSCULAR HGB CONC 33.7 g/dL (33.0-37.0); RBC 3.86 Mil/uL (3.80-5.20); RED CELL DISTRIBUTION WIDTH 13.6 % (11.5-14.5); WHITE BLOOD COUNT 3.1 K/uL (4.8-10.8)
[2018-06-22 20:15] LABS: BLOOD UREA NITROGEN 9 mg/dL (7-17); CALCIUM 10.3 mg/dl (8.6-10.4); GFR AFRICAN-AMERICAN > 60; GFR NON-AFRICAN AMERICAN > 60
[2018-06-23 08:11] LABS: HEMOGLOBIN 11.8 g/dL (11.0-16.0); MEAN CELL VOLUME 95.9 fL (81.0-99.0); MEAN CORPUSCULAR HEMOGLOBIN 32.6 pg (27.0-31.0); MEAN PLATELET VOLUME 10.3 fL (7.2-11.7); RBC 3.62 Mil/uL (3.80-5.20); RED CELL DISTRIBUTION WIDTH 13.4 % (11.5-14.5); WHITE BLOOD COUNT 2.9 K/uL (4.8-10.8)
[2018-06-23] MEDS ORDERED: Lactated Ringer's 500 ML IV ONE (08:27)
[2018-06-23] MEDS ORDERED: Propofol 10 mg/ml Inj (20 ML) ONE (08:32)
[2018-06-23] MEDS ORDERED: Lidocaine Hydrochloride 0 ML INJ ONE (08:33)
[2018-06-23] MEDS ORDERED: Lidocaine Hydrochloride 5 ML INJ ONE (08:34)
[2018-06-23 08:37] LABS: ALB/GLOB RATIO 1.2 (1.0-2.1); ALBUMIN 3.8 g/dL (3.5-5.0); ALT/SGPT 41 U/L (9-52); AST/SGOT 54 U/L (14-36); BLOOD UREA NITROGEN 8 mg/dL (7-17); CALCIUM 10.2 mg/dl (8.6-10.4); GFR AFRICAN-AMERICAN > 60; GFR NON-AFRICAN AMERICAN > 60
[2018-06-23] MEDS: Potassium Chloride 10 mEq ER Tab PO SCH ×2 (08:47→10:52)
[2018-06-23 10:34] VITALS: RESP 20
[2018-06-23] MEDS: Enoxaparin 40 mg Syringe SC SCH (10:53)
[2018-06-23] MEDS: Pantoprazole 40 mg EC Tab PO SCH (10:59)
--- NOTE | 2018-06-23 11:39 | CP.PCM.PN ---
Subjective - Date & Time of Evaluation Date of Evaluation: 06/23/18 Time of Evaluation: 11:33 - Subjective Subjective: Colonoscopy and EGD done this AM. Preliminary report gastritis and hiatus hernia and internal hemorrhoids. Bone densitometry could not be done as an inpatient, according to the wet room worker, patient should be discahrge and done as an outpatient. Apparently the outpatient is not participating radha Marques. Bone scan done and shows no metatstatic disdease. So I have to presume this is Osteoporosis. A soft tissue mass was sewen at the level of T12 to L1, which I ask for a biopsy. Objective - Vital Signs/Intake and Output Vital Signs (last 24 hours): Temp Pulse Resp BP Pulse Ox 96.8 F L 72 20 142/80 100 06/23/18 09:05 06/23/18 09:35 06/23/18 09:35 06/23/18 09:35 06/23/18 09:35 Intake and Output: 06/23/18 06/23/18 06:59 18:59 Intake Total 400 Balance 400 - Medications Medications: Current Medications Amlodipine Besylate (Norvasc) 10 mg PO DAILY [facility] Last Admin: 06/23/18 10:52 Dose: 10 mg Clopidogrel Bisulfate (Plavix) 75 mg PO DAILY [facility] Last Admin: 06/21/18 09:07 Dose: 75 mg Famotidine (Pepcid) 20 mg PO BID [facility] Last Admin: 06/23/18 10:52 Dose: 20 mg Glipizide (Glucotrol) 5 mg PO BID [facility] Last Admin: 06/22/18 09:51 Dose: 5 mg Dextrose/Sodium Chloride (Dextrose 5%/0.45% Ns 1000 Ml) 1,000 mls @ 50 mls/hr IV .Q20H [facility] Last Admin: 06/22/18 17:22 Dose: 50 mls/hr Insulin Glargine (Lantus) 30 unit SC HS [facility] Last Admin: 06/21/18 21:08 Dose: 30 units Isosorbide Mononitrate (Imdur Er) 30 mg PO BID [facility] Last Admin: 06/23/18 10:52 Dose: 30 mg Meclizine HCl (Antivert) 25 mg PO Q6 PRN PRN Reason: Dizziness Last Admin: 06/21/18 09:07 Dose: 25 mg Metoprolol Tartrate (Lopressor) 25 mg PO DAILY [facility] Last Admin: 06/23/18 10:52 Dose: 25 mg Montelukast Sodium (Singulair) 10 mg PO HS [facility] Last Admin: 06/22/18 21:44 Dose: 10 mg Pantoprazole Sodium (Protonix Ec Tab) 40 mg PO DAILY [facility] Last Admin: 06/23/18 10:59 Dose: 40 mg Potassium Chloride (Klor-Con 10) 10 meq PO BRK [facility] Last Admin: 06/23/18 10:52 Dose: 10 meq Rosuvastatin Calcium (Crestor) 10 mg PO HS [facility] Last Admin: 06/22/18 21:44 Dose: 10 mg Topiramate (Topamax) 100 mg PO TID [facility] Last Admin: 06/23/18 10:53 Dose: 100 mg - Labs Labs: 06/23/18 07:59 06/23/18 07:59 PT 11.8 SECONDS (9.7-12.2) 06/15/18 15:48 INR 1.1 06/15/18 15:48 APTT 28 SECONDS (21-34) 06/15/18 15:48 - Constitutional Appears: Chronically Ill - ENT Exam ENT Exam: Mucous Membranes Moist, Normal Exam - Respiratory Exam Respiratory Exam: Clear to Ausculation Bilateral, NORMAL BREATHING PATTERN - Cardiovascular Exam Cardiovascular Exam: REGULAR RHYTHM, +S1, +S2 - GI/Abdominal Exam GI & Abdominal Exam: Soft - Rectal Exam Rectal Exam: Deferred - Back Exam Back Exam: Full ROM - Psychiatric Exam Psychiatric exam: Anxious, Depressed - Skin Skin Exam: Dry, Intact, Normal Color, Warm Assessment and Plan (1) Abdominal pain Status: Acute (2) Urinary tract infection Status: Resolved (3) Type 2 diabetes mellitus Status: Acute - Assessment and Plan (Free Text) Assessment: Assessment: NIDDM. Multiple vertebral fracture old and new most probably secondary to Osteoporosis. Abdominal pains sec to gastritis. HTN. Depression eith anxiety paranoia. Plan: Plan; Biopsy of the soft tissue mass at paraspinal area.
--- NOTE | 2018-06-23 12:12 | PCM.IRP ---
Chief Complaint: IR requested to biopsy paraspinal mass. MRI reviewed. There is edema in the paraspinal tissue with no obvious mass. CT 06/12/2018 also reviewed. There is no paraspinal mass. Please call to discuss. Dr. Ramirez [phone] Objective - Vital Signs/Intake and Output Vital Signs (last 24 hours): Vital Signs - 24 hr 06/22/18 06/23/18 06/23/18 16:00 00:06 08:00 Temperature 98.6 F 97.7 F 98.2 F Pulse Rate 65 91 H 70 Respiratory 20 20 20 Rate Blood Pressure 172/73 H 164/77 H 177/75 H O2 Sat by Pulse 99 99 100 Oximetry 06/23/18 06/23/18 06/23/18 08:08 08:31 09:05 Temperature 98.2 F 98.2 F 96.8 F L Pulse Rate 70 82 78 Respiratory 20 20 18 Rate Blood Pressure 177/75 H 196/98 H 146/71 O2 Sat by Pulse 100 100 99 Oximetry 06/23/18 06/23/18 09:20 09:35 Temperature Pulse Rate 79 72 Respiratory 19 20 Rate Blood Pressure 174/81 H 142/80 O2 Sat by Pulse 100 100 Oximetry Intake and Output (last 12 hours): Intake & Output 06/22/18 06/23/18 06/23/18 18:59 06:59 18:59 Intake Total 400 Balance 400 Intake: Intake, IV Amount 400 Left Wrist 400 Oral 0 Other: # Voids Urine, Voided 3 # Bowel Movements 2 - Medications Medications: Current Medications Amlodipine Besylate (Norvasc) 10 mg PO DAILY [facility] Last Admin: 06/23/18 10:52 Dose: 10 mg Clopidogrel Bisulfate (Plavix) 75 mg PO DAILY [facility] Last Admin: 06/21/18 09:07 Dose: 75 mg Famotidine (Pepcid) 20 mg PO BID [facility] Last Admin: 06/23/18 10:52 Dose: 20 mg Glipizide (Glucotrol) 5 mg PO BID [facility] Last Admin: 06/22/18 09:51 Dose: 5 mg Dextrose/Sodium Chloride (Dextrose 5%/0.45% Ns 1000 Ml) 1,000 mls @ 50 mls/hr IV .Q20H [facility] Last Admin: 06/22/18 17:22 Dose: 50 mls/hr Insulin Glargine (Lantus) 30 unit SC HS [facility] Last Admin: 06/21/18 21:08 Dose: 30 units Isosorbide Mononitrate (Imdur Er) 30 mg PO BID [facility] Last Admin: 06/23/18 10:52 Dose: 30 mg Meclizine HCl (Antivert) 25 mg PO Q6 PRN PRN Reason: Dizziness Last Admin: 06/21/18 09:07 Dose: 25 mg Metoprolol Tartrate (Lopressor) 25 mg PO DAILY [facility] Last Admin: 06/23/18 10:52 Dose: 25 mg Montelukast Sodium (Singulair) 10 mg PO HS [facility] Last Admin: 06/22/18 21:44 Dose: 10 mg Pantoprazole Sodium (Protonix Ec Tab) 40 mg PO DAILY [facility] Last Admin: 06/23/18 10:59 Dose: 40 mg Potassium Chloride (Klor-Con 10) 10 meq PO BRK [facility] Last Admin: 06/23/18 10:52 Dose: 10 meq Rosuvastatin Calcium (Crestor) 10 mg PO HS [facility] Last Admin: 06/22/18 21:44 Dose: 10 mg Topiramate (Topamax) 100 mg PO TID [facility] Last Admin: 06/23/18 10:53 Dose: 100 mg - Labs Labs (last 24 hours): Laboratory Results - last 24 hr 06/18/18 06/20/18 06/21/18 07:28 13:00 20:58 WBC RBC Hgb Hct MCV MCH MCHC RDW Plt Count MPV Sodium Potassium Chloride Carbon Dioxide Anion Gap BUN Creatinine Est GFR ( Amer) Est GFR (Non-Af Amer) POC Glucose (mg/dL) 152 H Random Glucose Calcium Total Bilirubin AST ALT Alkaline Phosphatase 165 H Total Protein Albumin Globulin Albumin/Globulin Ratio Ur Random Creatinine 78 U Random Total Protein 249 H 06/22/18 06/22/18 06/22/18 03:36 07:22 16:43 WBC RBC Hgb Hct MCV MCH MCHC RDW Plt Count MPV Sodium Potassium Chloride Carbon Dioxide Anion Gap BUN Creatinine Est GFR ( Amer) Est GFR (Non-Af Amer) POC Glucose (mg/dL) 134 H 72 61 L Random Glucose Calcium Total Bilirubin AST ALT Alkaline Phosphatase Total Protein Albumin Globulin Albumin/Globulin Ratio Ur Random Creatinine U Random Total Protein 06/22/18 06/22/1818 16:45 17:05 19:49 WBC 3.1 L RBC 3.86 Hgb 12.5 Hct 36.9 MCV 95.6 MCH 32.2 H MCHC 33.7 RDW 13.6 Plt Count 157 MPV 10.0 Sodium Potassium Chloride Carbon Dioxide Anion Gap BUN Creatinine Est GFR ( Amer) Est GFR (Non-Af Amer) POC Glucose (mg/dL) 64 L 80 Random Glucose Calcium Total Bilirubin AST ALT Alkaline Phosphatase Total Protein Albumin Globulin Albumin/Globulin Ratio Ur Random Creatinine U Random Total Protein 06/22/18 06/22/18 06/23/18 19:49 21:08 02:25 WBC RBC Hgb Hct MCV MCH MCHC RDW Plt Count MPV Sodium 139 Potassium 4.1 Chloride 108 H Carbon Dioxide 17 L Anion Gap 18 BUN 9 Creatinine 0.7 Est GFR ( Amer) > 60 Est GFR (Non-Af Amer) > 60 POC Glucose (mg/dL) 163 H 219 H Random Glucose 188 H Calcium 10.3 Total Bilirubin AST ALT Alkaline Phosphatase Total Protein Albumin Globulin Albumin/Globulin Ratio Ur Random Creatinine U Random Total Protein 06/23/18 06/23/18 06/23/18 07:12 07:59 07:59 WBC 2.9 L RBC 3.62 L Hgb 11.8 Hct 34.7 MCV 95.9 MCH 32.6 H MCHC 34.0 RDW 13.4 Plt Count 151 MPV 10.3 Sodium 144 Potassium 3.5 L Chloride 110 H Carbon Dioxide 23 Anion Gap 14 BUN 8 Creatinine 0.7 Est GFR ( Amer) > 60 Est GFR (Non-Af Amer) > 60 POC Glucose (mg/dL) 159 H Random Glucose 167 H Calcium 10.2 Total Bilirubin 0.3 AST 54 H D ALT 41 Alkaline Phosphatase 167 H Total Protein 6.9 Albumin 3.8 Globulin 3.1 Albumin/Globulin Ratio 1.2 Ur Random Creatinine U Random Total Protein 06/23/18 11:07 WBC RBC Hgb Hct MCV MCH MCHC RDW Plt Count MPV Sodium Potassium Chloride Carbon Dioxide Anion Gap BUN Creatinine Est GFR ( Amer) Est GFR (Non-Af Amer) POC Glucose (mg/dL) 217 H Random Glucose Calcium Total Bilirubin AST ALT Alkaline Phosphatase Total Protein Albumin Globulin Albumin/Globulin Ratio Ur Random Creatinine U Random Total Protein
[2018-06-23] MEDS: Dextrose 5%/0.45% NS 1,000 ML IV SCH ×2 (13:20→19:05)
[2018-06-23] MEDS: (Lantus) Insulin Glargine, Recombinant SC SCH (21:07)
[2018-06-23 21:31] LABS: ALBUMIN (PEP) 3.2 g/dL (3.8-4.8); ALPHA-1-GLOBULIN (PEP) 0.2 g/dL (0.2-0.3)
--- NOTE | 2018-06-24 10:22 | CP.PCM.PN ---
Subjective - Date & Time of Evaluation Date of Evaluation: 06/24/18 Time of Evaluation: 10:19 - Subjective Subjective: Still with pain but no diarrhea, bleeding EGD and Colonoscopy reports charted as OR reports. Objective - Vital Signs/Intake and Output Vital Signs (last 24 hours): Temp Pulse Resp BP Pulse Ox 97.4 F L 88 20 194/80 H 98 06/24/18 08:15 06/24/18 08:15 06/24/18 08:15 06/24/18 08:15 06/24/18 08:15 Intake and Output: 06/24/18 06/24/18 06:59 18:59 Intake Total 580 Balance 580 - Medications Medications: Current Medications Amlodipine Besylate (Norvasc) 10 mg PO DAILY [facility] Last Admin: 06/23/18 10:52 Dose: 10 mg Clopidogrel Bisulfate (Plavix) 75 mg PO DAILY [facility] Last Admin: 06/21/18 09:07 Dose: 75 mg Famotidine (Pepcid) 20 mg PO BID [facility] Last Admin: 06/23/18 17:09 Dose: 20 mg Glipizide (Glucotrol) 5 mg PO BID [facility] Last Admin: 06/23/18 19:07 Dose: 5 mg Dextrose/Sodium Chloride (Dextrose 5%/0.45% Ns 1000 Ml) 1,000 mls @ 50 mls/hr IV .Q20H [facility] Last Admin: 06/23/18 19:05 Dose: 50 mls/hr Insulin Glargine (Lantus) 30 unit SC [facility] Last Admin: 06/23/18 21:07 Dose: Not Given Isosorbide Mononitrate (Imdur Er) 30 mg PO BID [facility] Last Admin: 06/23/18 17:09 Dose: 30 mg Meclizine HCl (Antivert) 25 mg PO Q6 PRN PRN Reason: Dizziness Last Admin: 06/21/18 09:07 Dose: 25 mg Metoprolol Tartrate (Lopressor) 25 mg PO DAILY [facility] Last Admin: 06/23/18 10:52 Dose: 25 mg Montelukast Sodium (Singulair) 10 mg PO HS [facility] Last Admin: 06/23/18 21:06 Dose: 10 mg Pantoprazole Sodium (Protonix Ec Tab) 40 mg PO DAILY [facility] Last Admin: 06/23/18 10:59 Dose: 40 mg Potassium Chloride (Klor-Con 10) 10 meq PO BRK [facility] Last Admin: 06/23/18 10:52 Dose: 10 meq Rosuvastatin Calcium (Crestor) 10 mg PO HS [facility] Last Admin: 06/23/18 21:06 Dose: 10 mg Topiramate (Topamax) 100 mg PO TID [facility] Last Admin: 06/23/18 17:09 Dose: 100 mg - Labs Labs: 06/23/18 07:59 06/23/18 07:59 PT 11.8 SECONDS (9.7-12.2) 06/15/18 15:48 INR 1.1 06/15/18 15:48 APTT 28 SECONDS (21-34) 06/15/18 15:48 - Constitutional Appears: No Acute Distress - Head Exam Head Exam: ATRAUMATIC, NORMOCEPHALIC - Respiratory Exam Respiratory Exam: NORMAL BREATHING PATTERN - Cardiovascular Exam Cardiovascular Exam: REGULAR RHYTHM - GI/Abdominal Exam GI & Abdominal Exam: Soft, Normal Bowel Sounds. absent: Tenderness - Extremities Exam Extremities Exam: Normal Inspection Assessment and Plan (1) Lower abdominal pain Assessment & Plan: Likely due to radiculopathy as no intraabdominal pathology found to explain her pain. Mild diverticulosis and small polyp. No obstruction. Clinically stable for discharge from GI point of view. Out patient office follow up as needed. Case discussed with Dr Barry at bedside today. Thank you. Status: Acute (2) Blood in stool Status: Resolved (3) Urinary tract infection Status: Resolved (4) Abnormal alkaline phosphatase test Assessment & Plan: Likely due to bone loss. Alk Phos isoenzymes ordered. Status: Acute (5) Colon polyp Assessment & Plan: Awaiting pathology as likely adenoma. Will need repeat colonoscopy in five years if + for adenoma. Hold Plavix for one more day post polypectomy. Status: Acute (6) GERD (gastroesophageal reflux disease) Assessment & Plan: On PPI. Has large hiatal hernia that facilitates reflux. Status: Acute (7) Diverticulosis large intestine w/o perforation or abscess w/o bleeding Assessment & Plan: Not clinically significant. Not a likely source for her pain. Status: Acute (8) Gastritis Assessment & Plan: On PPI. Biopsy pending. Could also be related to Plavix. r/o H pylori infection. Status: Acute
[2018-06-24] MEDS: Potassium Chloride 10 mEq ER Tab PO SCH (10:57)
[2018-06-24] MEDS: Pantoprazole 40 mg EC Tab PO SCH (10:57)
--- NOTE | 2018-06-24 10:58 | CP.PCM.DIS ---
Provider - Provider Date of Admission: 06/15/18 17:29 Attending physician: Madonna Barry MD Time Spent in preparation of Discharge (in minutes): 60 Diagnosis - Discharge Diagnosis (1) Abdominal pain Status: Acute (2) Urinary tract infection Status: Resolved (3) Type 2 diabetes mellitus Status: Acute (4) Abnormal alkaline phosphatase test Status: Acute (5) Diverticulosis large intestine w/o perforation or abscess w/o bleeding Status: Acute (6) GERD (gastroesophageal reflux disease) Status: Acute (7) Compression fracture of L3 lumbar vertebra Status: Acute (8) Diabetes mellitus Status: Acute (9) Dizziness Status: Acute (10) Gastritis Status: Acute (11) Low back pain Status: Chronic (12) Major depressive disorder, recurrent, severe with psychotic features Status: Chronic (13) Sciatica Status: Chronic (14) Severe low back pain Status: Chronic (15) CAD (coronary artery disease) Status: Chronic (16) Hypertension Status: Chronic Hospital Course - Lab Results Lab Results: Micro Results 06/17/18 Unknown Urine,Clean Catch Urine Culture - Final No Growth (<1,000 CFU/ML) 06/15/18 15:40 Urine Urine Culture - Final <10,000 CFU/ML. MULTIPLE SPECIES. PROBABLE CONTAMINATION. Most Recent Lab Values WBC 2.9 K/uL (4.8-10.8) L 06/23/18 07:59 RBC 3.62 Mil/uL (3.80-5.20) L 06/23/18 07:59 Hgb 11.8 g/dL (11.0-16.0) 06/23/18 07:59 Hct 34.7 % (34.0-47.0) 06/23/18 07:59 MCV 95.9 fL (81.0-99.0) 06/23/18 07:59 MCH 32.6 pg (27.0-31.0) H 06/23/18 07:59 MCHC 34.0 g/dL (33.0-37.0) 06/23/18 07:59 RDW 13.4 % (11.5-14.5) 06/23/18 07:59 Plt Count 151 K/uL (130-400) 06/23/18 07:59 MPV 10.3 fL (7.2-11.7) 06/23/18 07:59 Neut % (Auto) 40.9 % (50.0-75.0) L 06/20/18 16:30 Lymph % (Auto) 28.2 % (20.0-40.0) 06/20/18 16:30 Quay % (Auto) 30.1 % (0.0-10.0) H 06/20/18 16:30 Eos % (Auto) 0.5 % (0.0-4.0) 06/20/18 16:30 Baso % (Auto) 0.3 % (0.0-2.0) 06/20/18 16:30 Neut # (Auto) 1.6 K/uL (1.8-7.0) L 06/20/18 16:30 Lymph # (Auto) 1.1 K/uL (1.0-4.3) 06/20/18 16:30 Quay # (Auto) 1.2 K/uL (0.0-0.8) H 06/20/18 16:30 Eos # (Auto) 0.0 K/uL (0.0-0.7) 06/20/18 16:30 Baso # (Auto) 0.0 K/uL (0.0-0.2) 06/20/18 16:30 Neutrophils % (Manual) 75 % (50-75) 06/20/18 16:30 Lymphocytes % (Manual) 20 % (20-40) 06/20/18 16:30 Monocytes % (Manual) 5 % (0-10) 06/20/18 16:30 Platelet Estimate Slightly decreased (NORMAL) L 06/20/18 16:30 Large Platelets Present 06/20/18 16:30 RBC Morphology Normal 06/17/18 06:22 Poikilocytosis (manual Slight 06/15/18 15:48 Anisocytosis (manual) Slight 06/15/18 15:48 PT 11.8 SECONDS (9.7-12.2) 06/15/18 15:48 INR 1.1 06/15/18 15:48 APTT 28 SECONDS (21-34) 06/15/18 15:48 Sodium 144 mmol/L (132-148) 06/23/18 07:59 Potassium 3.5 mmol/L (3.6-5.2) L 06/23/18 07:59 Chloride 110 mmol/L (98-107) H 06/23/18 07:59 Carbon Dioxide 23 mmol/L (22-30) 06/23/18 07:59 Anion Gap 14 (10-20) 06/23/18 07:59 BUN 8 mg/dL (7-17) 06/23/18 07:59 Creatinine 0.7 mg/dL (0.7-1.2) 06/23/18 07:59 Est GFR ( Amer) > 60 06/23/18 07:59 Est GFR (Non-Af Amer) > 60 06/23/18 07:59 POC Glucose (mg/dL) 313 mg/dL (65-110) H 06/24/18 07:32 Random Glucose 167 mg/dL (65-105) H 06/23/18 07:59 Calcium 10.2 mg/dl (8.6-10.4) 06/23/18 07:59 Total Bilirubin 0.3 mg/dL (0.2-1.3) 06/23/18 07:59 Direct Bilirubin 0.3 mg/dL (0.0-0.4) 06/21/18 08:42 GGT 58 U/L (8-78) 06/18/18 07:28 AST 54 U/L (14-36) H D 06/23/18 07:59 ALT 41 U/L (9-52) 06/23/18 07:59 Alkaline Phosphatase 167 U/L (38-126) H 06/23/18 07:59 Troponin I 0.0240 ng/mL (0.00-0.120) 06/15/18 15:48 Total Protein 6.9 g/dL (6.3-8.3) 06/23/18 07:59 Total Protein (PEP) 6.1 g/dL (6.1-8.1) 06/20/18 16:30 Albumin 3.8 g/dL (3.5-5.0) 06/23/18 07:59 Albumin (PEP) 3.2 g/dL (3.8-4.8) L 06/20/18 16:30 Globulin 3.1 gm/dL (2.2-3.9) 06/23/18 07:59 Albumin/Globulin Ratio 1.2 (1.0-2.1) 06/23/18 07:59 Yoogq-2-Uonweyqaw 0.2 g/dL (0.2-0.3) 06/20/18 16:30 Nfwut-1-Jozxtloci 0.7 g/dL (0.5-0.9) 06/20/18 16:30 Gvoo-5-Xucjkkjt 0.4 g/dL (0.4-0.6) 06/20/18 16:30 Kqai-0-Tzjjqwoo 0.4 g/dL (0.2-0.5) 06/20/18 16:30 Gamma Globulins 1.1 g/dL (0.8-1.7) 06/20/18 16:30 Abnorm Protein Band 1 TEST NOT PERFORMED 06/20/18 16:30 Abnorm Protein Band 2 TEST NOT PERFORMED 06/20/18 16:30 Abnorm Protein Band 3 TEST NOT PERFORMED 06/20/18 16:30 Amylase 99 U/L (30-110) 06/17/18 06:22 Lipase 66 U/L (23-300) 06/17/18 06:22 Urine Color Yellow (YELLOW) 06/15/18 15:48 Urine Clarity Clear (Clear) 06/15/18 15:48 Urine pH 7.0 (5.0-8.0) 06/15/18 15:48 Ur Specific [place] 1.014 (1.003-1.030) 06/15/18 15:48 Urine Protein 2+ mg/dL (NEGATIVE) H 06/15/18 15:48 Urine Glucose (UA) 3+ mg/dL (Normal) H 06/15/18 15:48 Urine Ketones Negative mg/dL (NEGATIVE) 06/15/18 15:48 Urine Blood 2+ (NEGATIVE) H 06/15/18 15:48 Urine Nitrate Negative (NEGATIVE) 06/15/18 15:48 Urine Bilirubin Negative (NEGATIVE) 06/15/18 15:48 Urine Urobilinogen Normal mg/dL (0.2-1.0) 06/15/18 15:48 Ur Leukocyte Esterase Neg Rosio/uL (Negative) 06/15/18 15:48 Urine WBC (Auto) 2 /hpf (0-5) 06/15/18 15:48 Urine RBC (Auto) 148 /hpf (0-3) H 06/15/18 15:48 Ur Squamous Epith Cells 1 /hpf (0-5) 06/15/18 15:48 Urine Bacteria Rare (<OCC) 06/15/18 15:48 Ur Random Creatinine 78 mg/dL (20-320) 06/20/18 13:00 U Random Total Protein 249 mg/g creat (21-161) H 06/20/18 13:00 Stool Occult Blood Negative (NEGATIVE) 06/17/18 14:15 Vancomycin Peak 10.4 ug/mL (30.0-40.0) L 06/18/18 13:55 Vancomycin Trough 12.0 ug/mL (5.0-10.0) H 06/18/18 11:29 MELISSA & SPEP Interp See note 06/20/18 16:30 - Hospital Course Hospital Course: Admitted this patient from the ER because of abdominal pains. ER nurse practitioner claims that the patient's urine culture showed a colony count not sensitive to any antibiotic except Penecillin and Vancomycin. Patient is allergic to Penicillin so the only ythging patient can get is IV Vanco so she claims patient has to be admitted for IV Vanco therapy. In the meantime patient was always complaining of abdominal pains so a GI consult was obtained. Dr. Blair did an upper and lower endoscopy which only showed gastritis, and diverticulosis. MRI of the thoracic and lumbar spines showed multiple old and new fractures of the T12 and lumbar vertebrae. Dr. Ady Lora was consulted who knows the parient and he suggested that this patient should have a custom made brace . Work-up for osteoporosis which includes a bone densitometry could not be done for this test is not available as an inpatient. 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 This patient is discharged today [facility] a rehab center where she can have this test done. In the meantime she should be on an allendronate and 2 tablets of calcium a day on top of her medications. Discharge Exam - Head Exam Head Exam: NORMAL INSPECTION, NORMOCEPHALIC - Eye Exam Eye Exam: Normal appearance Pupil Exam: PERRL - ENT Exam ENT Exam: Mucous Membranes Moist, Normal Exam - Neck Exam Neck exam: Full Rom - Respiratory Exam Respiratory Exam: Clear to PA & Lateral, NORMAL BREATHING PATTERN, UNREMARKABLE - Cardiovascular Exam Cardiovascular Exam: REGULAR RHYTHM, +S1, +S2 - GI/Abdominal Exam GI & Abdominal Exam: Normal Bowel Sounds, Soft - Rectal Exam Rectal Exam: Deferred - Extremities Exam Extremities exam: full ROM - Back Exam Back exam: FULL ROM, NORMAL INSPECTION - Neurological Exam Neurological exam: Alert, Oriented x3 - Psychiatric Exam Psychiatric exam: Anxious, Depressed - Skin Skin Exam: Dry, Intact, Warm Discharge Plan - Follow Up Plan Condition: GOOD Disposition: REHAB FACILITY/REHAB UNIT Instructions: Acute Abdominal Pain (DC), Acute Abdominal Pain (GEN), Low Back Pain in Adults, Stomach Ache and Stomach Upset Clinical Quality Measures - CQM - Stroke Statin prescribed: Yes - CQM - VTE Did patient receive overlap therapy during hosptialization?: No
[2018-06-24] MEDS ORDERED: (Novolog) Insulin Aspart, Recombinant 100 u/ml 10 ml vial SC ONE (12:00)
[2018-06-24] MEDS: (Lantus) Insulin Glargine, Recombinant SC SCH (21:49)
[2018-06-25] MEDS: Potassium Chloride 10 mEq ER Tab PO SCH (08:37)
[2018-06-25] MEDS: Dextrose 5%/0.45% NS 1,000 ML IV SCH (08:38)
[2018-06-25] MEDS ORDERED: GlipiZIDE 10 mg SR Tab PO SCH ×2 (10:45→18:00)
--- NOTE | 2018-06-25 10:47 | CP.PCM.PN ---
Subjective - Date & Time of Evaluation Date of Evaluation: 06/25/18 Time of Evaluation: 10:43 - Subjective Subjective: Patient seen and examined. Afebrile. Patient was supposed to have been discharged yesterday but the body brace was not yet fitted and measeured so discharge was held. No C/O at this time. Objective - Vital Signs/Intake and Output Vital Signs (last 24 hours): Temp Pulse Resp BP Pulse Ox 97.8 F 62 20 165/75 H 96 06/25/18 08:25 06/25/18 08:25 06/25/18 08:25 06/25/18 08:25 06/25/18 08:25 Intake and Output: 06/25/18 06/25/18 06:59 18:59 Intake Total 180 Balance 180 - Medications Medications: Current Medications Amlodipine Besylate (Norvasc) 10 mg PO DAILY [facility] Last Admin: 06/24/18 10:57 Dose: 10 mg Clopidogrel Bisulfate (Plavix) 75 mg PO DAILY [facility] Last Admin: 06/21/18 09:07 Dose: 75 mg Famotidine (Pepcid) 20 mg PO BID [facility] Last Admin: 06/24/18 17:44 Dose: 20 mg Glipizide (Glucotrol Xl) 10 mg PO BID [facility] Insulin Glargine (Lantus) 36 unit SC ACBD [facility] Isosorbide Mononitrate (Imdur Er) 30 mg PO BID [facility] Last Admin: 06/24/18 17:44 Dose: 30 mg Meclizine HCl (Antivert) 25 mg PO Q6 PRN PRN Reason: Dizziness Last Admin: 06/21/18 09:07 Dose: 25 mg Metoprolol Tartrate (Lopressor) 25 mg PO DAILY [facility] Last Admin: 06/24/18 10:58 Dose: 25 mg Montelukast Sodium (Singulair) 10 mg PO HS [facility] Last Admin: 06/24/18 21:48 Dose: 10 mg Pantoprazole Sodium (Protonix Ec Tab) 40 mg PO DAILY [facility] Last Admin: 06/24/18 10:57 Dose: 40 mg Potassium Chloride (Klor-Con 10) 10 meq PO BRK [facility] Last Admin: 06/25/18 08:37 Dose: 10 meq Rosuvastatin Calcium (Crestor) 10 mg PO HS [facility] Last Admin: 06/24/18 21:48 Dose: 10 mg Topiramate (Topamax) 100 mg PO TID [facility] Last Admin: 06/24/18 17:45 Dose: 100 mg - Labs Labs: 06/23/18 07:59 06/23/18 07:59 PT 11.8 SECONDS (9.7-12.2) 06/15/18 15:48 INR 1.1 06/15/18 15:48 APTT 28 SECONDS (21-34) 06/15/18 15:48 - Constitutional Appears: Non-toxic, No Acute Distress, Chronically Ill - Head Exam Head Exam: ATRAUMATIC, NORMAL INSPECTION, NORMOCEPHALIC - Eye Exam Eye Exam: EOMI Pupil Exam: PERRL - ENT Exam ENT Exam: Normal External Ear Exam - Neck Exam Neck Exam: Full ROM - Respiratory Exam Respiratory Exam: Clear to Ausculation Bilateral, NORMAL BREATHING PATTERN - Cardiovascular Exam Cardiovascular Exam: REGULAR RHYTHM, +S1, +S2 - GI/Abdominal Exam GI & Abdominal Exam: Soft, Normal Bowel Sounds - Rectal Exam Rectal Exam: Deferred - Extremities Exam Extremities Exam: Full ROM, Normal Inspection - Neurological Exam Neurological Exam: Alert, Awake, Oriented x3 - Psychiatric Exam Psychiatric exam: Anxious, Depressed - Skin Skin Exam: Dry, Intact, Normal Color, Warm Assessment and Plan (1) Abdominal pain Status: Acute (2) Urinary tract infection Status: Resolved (3) Type 2 diabetes mellitus Status: Acute (4) Abnormal alkaline phosphatase test Status: Acute (5) Diverticulosis large intestine w/o perforation or abscess w/o bleeding Status: Acute (6) GERD (gastroesophageal reflux disease) Status: Acute (7) Compression fracture of L3 lumbar vertebra Status: Acute (8) Diabetes mellitus Status: Acute (9) Dizziness Status: Acute (10) Gastritis Status: Acute (11) Low back pain Status: Chronic (12) Major depressive disorder, recurrent, severe with psychotic features Status: Chronic (13) Sciatica Status: Chronic (14) Severe low back pain Status: Chronic (15) CAD (coronary artery disease) Status: Chronic (16) Hypertension Status: Chronic - Assessment and Plan (Free Text) Assessment: Assessment Back pains sec to multiple vertebral frctures new and old. Multiple vertebral fractures sec to osteoporosis. NIDDM Abdominal pains sec to neuropathy sec to the fractures. Depression with anxiety Paranoia. Hypertension. : Plan: Plan: PT. Continue present treatment. Start on allendronate and Calcium.
[2018-06-25] MEDS: Pantoprazole 40 mg EC Tab PO SCH (10:56)
--- NOTE | 2018-06-25 11:26 | CP.PCM.PN ---
Subjective - Date & Time of Evaluation Date of Evaluation: 06/25/18 Time of Evaluation: 11:23 - Subjective Subjective: Pathology: Polyp + tubular adenoma of sigmoid colon Antrum no H pylori No new complaints. Awaiting back brace for discharge Objective - Vital Signs/Intake and Output Vital Signs (last 24 hours): Temp Pulse Resp BP Pulse Ox 97.8 F 62 20 167/75 H 96 06/25/18 08:25 06/25/18 08:25 06/25/18 08:25 06/25/18 10:56 06/25/18 08:25 Intake and Output: 06/25/18 06/25/18 06:59 18:59 Intake Total 180 Balance 180 - Medications Medications: Current Medications Amlodipine Besylate (Norvasc) 10 mg PO DAILY [facility] Last Admin: 06/25/18 10:56 Dose: 10 mg Clopidogrel Bisulfate (Plavix) 75 mg PO DAILY [facility] Last Admin: 06/25/18 11:01 Dose: 75 mg Famotidine (Pepcid) 20 mg PO BID [facility] Last Admin: 06/25/18 10:56 Dose: 20 mg Glipizide (Glucotrol Xl) 10 mg PO BID [facility] Insulin Glargine (Lantus) 36 unit SC ACBD [facility] Isosorbide Mononitrate (Imdur Er) 30 mg PO BID [facility] Last Admin: 06/25/18 10:56 Dose: 30 mg Meclizine HCl (Antivert) 25 mg PO Q6 PRN PRN Reason: Dizziness Last Admin: 06/21/18 09:07 Dose: 25 mg Metoprolol Tartrate (Lopressor) 25 mg PO DAILY [facility] Last Admin: 06/25/18 10:56 Dose: 25 mg Montelukast Sodium (Singulair) 10 mg PO HS [facility] Last Admin: 06/24/18 21:48 Dose: 10 mg Pantoprazole Sodium (Protonix Ec Tab) 40 mg PO DAILY [facility] Last Admin: 06/25/18 10:56 Dose: 40 mg Potassium Chloride (Klor-Con 10) 10 meq PO BRK [facility] Last Admin: 06/25/18 08:37 Dose: 10 meq Rosuvastatin Calcium (Crestor) 10 mg PO HS [facility] Last Admin: 06/24/18 21:48 Dose: 10 mg Topiramate (Topamax) 100 mg PO TID [facility] Last Admin: 06/25/18 10:56 Dose: 100 mg - Labs Labs: 06/23/18 07:59 06/23/18 07:59 PT 11.8 SECONDS (9.7-12.2) 06/15/18 15:48 INR 1.1 06/15/18 15:48 APTT 28 SECONDS (21-34) 06/15/18 15:48 - Constitutional Appears: No Acute Distress - Head Exam Head Exam: ATRAUMATIC, NORMOCEPHALIC - Respiratory Exam Respiratory Exam: NORMAL BREATHING PATTERN - Cardiovascular Exam Cardiovascular Exam: REGULAR RHYTHM - GI/Abdominal Exam GI & Abdominal Exam: Soft, Normal Bowel Sounds. absent: Tenderness - Extremities Exam Extremities Exam: Normal Inspection Assessment and Plan (1) Lower abdominal pain Status: Chronic (2) Blood in stool Status: Resolved (3) Urinary tract infection Status: Resolved (4) Abnormal alkaline phosphatase test Status: Acute (5) Colon polyp Assessment & Plan: Polyp is adenoma. SHould have repeat colonoscopy in 5 years based on size of less than 10mm. Clinically stable. Status: Acute (6) GERD (gastroesophageal reflux disease) Assessment & Plan: Continue PPI or H2B if concerned about bone loss from PPI. Status: Acute (7) Diverticulosis large intestine w/o perforation or abscess w/o bleeding Status: Chronic (8) Gastritis Status: Acute
[2018-06-25 14:55] LABS: ALBUMIN 46.9 Relative %; ALPHA-1 GLOBULIN 4.9 Relative %
[2018-06-25] MEDS ORDERED: (Lantus) Insulin Glargine, Recombinant SC SCH (16:30)
[2018-06-25 17:20] VITALS: BP 166/74; PULSE 63; TEMP 97.5; O2SAT 98
== END 2018-06-25 18:53 | DRG 690 ==
LOC: C.ER 14:19 → C.9E 17:29 → C.3T 18:03
PROVIDERS: ADMIT Legal Medicine; ATTEND Legal Medicine
PROC: 0DB68ZX Excision of Stomach, Via Natural or Artificial Opening Endoscopic, Diagnostic (ICD-10-PCS; principal; 2018-06-23 08:34)
PROC: 0DBN8ZX Excision of Sigmoid Colon, Via Natural or Artificial Opening Endoscopic, Diagnostic (ICD-10-PCS; 2018-06-23 08:34)
DX: N39.0 Urinary tract infection, site not specified (principal); M80.88XA Other osteoporosis with current pathological fracture, vertebra(e), initial encounter for fracture; K92.1 Melena; K63.5 Polyp of colon; K64.1 Second degree hemorrhoids; K57.90 Diverticulosis of intestine, part unspecified, without perforation or abscess without bleeding; K44.9 Diaphragmatic hernia without obstruction or gangrene; M43.10 Spondylolisthesis, site unspecified; J45.909 Unspecified asthma, uncomplicated; K21.9 Gastro-esophageal reflux disease without esophagitis; I25.10 Atherosclerotic heart disease of native coronary artery without angina pectoris; M48.061 Spinal stenosis, lumbar region without neurogenic claudication; I10 Essential (primary) hypertension; G89.29 Other chronic pain; G62.9 Polyneuropathy, unspecified; M54.5 Low back pain; Z88.0 Allergy status to penicillin; Z90.49 Acquired absence of other specified parts of digestive tract; Z95.5 Presence of coronary angioplasty implant and graft; Z79.4 Long term (current) use of insulin; Z86.73 Personal history of transient ischemic attack (TIA), and cerebral infarction without residual deficits; Z87.440 Personal history of urinary (tract) infections

== ENCOUNTER 2018-11-17 14:11 | Inpatient (IN) | payer MEDICARE ==
[2018-11-17 14:12] VITALS: BMI 28.7
[2018-11-17] MEDS ORDERED: Sodium Chloride 0.9% 1,000 ML IV STA ×2 (15:33→16:20)
[2018-11-17 16:04] LABS: HEMOGLOBIN 12.9 g/dL (11.0-16.0); MEAN CELL VOLUME 100.2 fL (81.0-99.0); MEAN CORPUSCULAR HGB CONC 30.9 g/dL (33.0-37.0); MEAN PLATELET VOLUME 11.2 fL (7.2-11.7); PLATELET COUNT 115 K/uL (130-400); RBC 4.15 Mil/uL (3.80-5.20); RED CELL DISTRIBUTION WIDTH 14.1 % (11.5-14.5); WHITE BLOOD COUNT 31.5 K/uL (4.8-10.8)
[2018-11-17 16:09] LABS: VENOUS BLOOD GAS BASE EXCESS -22.8 mmol/L (0.0-2.0); VENOUS BLOOD GAS PCO2 21 mmHg (40-60); VENOUS BLOOD GAS PO2 57 mm/Hg (30-55); VENOUS BLOOD PH 7.06 (7.32-7.43)
[2018-11-17] MEDS ORDERED: (Novolin R) Insulin Human Regular 100 units/ml vial IVP STA (16:10)
[2018-11-17] MEDS ORDERED: Insulin Human Regular 100 UNIT in Sodium Chloride 0.9% 99 ML IV STA (16:10)
[2018-11-17] MEDS ORDERED: (Novolin R) Insulin Human Regular 100 units/ml vial ONE (16:44)
[2018-11-17 16:55] LABS: BASO # 0.1 K/uL (0.0-0.2); BASO % 0.3 % (0.0-2.0); LYMPH # 0.3 K/uL (1.0-4.3); MONO # 7.9 K/uL (0.0-0.8); NEUT # 23.2 K/uL (1.8-7.0); NEUT % 73.7 % (50.0-75.0)
[2018-11-17 17:01] LABS: SQUAMOUS EPITHIAL < 1 /hpf (0-5); URINE BACTERIA RARE (<OCC); URINE BILIRUBIN NEGATIVE (NEGATIVE); URINE BLOOD 1+ (NEGATIVE); URINE CLARITY Clear (Clear); URINE COLOR Yellow (YELLOW); URINE GLUCOSE (UA) 3+ mg/dL (Normal); URINE LEUKOCYTE ESTERASE NEG Leu/uL (Negative); URINE PROTEIN 2+ mg/dL (NEGATIVE); URINE UROBILINOGEN NORMAL mg/dL (0.2-1.0)
[2018-11-17 17:04] LABS: ALB/GLOB RATIO 1.5 (1.0-2.1); ALBUMIN 4.4 g/dL (3.5-5.0); CALCIUM 9.7 mg/dl (8.6-10.4)
--- NOTE | 2018-11-17 17:08 | C.PDOC ---
Time Seen by Provider: 11/17/18 15:19 Chief Complaint (Nursing): Abdominal Pain Past Medical History Vital Signs: Last Vital Signs Temp 97.3 F L 11/17/18 14:56 Pulse 119 H 11/17/18 14:56 Resp 24 11/17/18 14:56 BP 147/69 11/17/18 14:56 Pulse Ox 98 11/17/18 14:56 - Medical History PMH: Anxiety, Arthritis, Asthma, Bipolar Disorder, Depression, Diabetes, Gastritis, HTN, Hypercholesterolemia, Osteoporosis, Paranoia, Schizophrenia Denies: Crohn's Disease, Diverticulitis, Gall Bladder Disease, Hepatitis, HIV, Pancreatitis, Chronic Kidney Disease, Seizures, Sexually Transmitted Disease Surgical History: Appendectomy, Coronary Stent (PCI of the LAD with stent insertion ( [facility]) in 2007 in [place].) - [facility] Procedures EXCIS DEBRIDE OF WOUND, INFECT, OR BURN (02/06/15) EXCISION OF SIGMOID COLON, ENDO, DIAGN (06/15/18) EXCISION OF STOMACH, ENDO, DIAGN (06/15/18) GROUP PSYCHOTHERAPY (05/18/18) INDIVIDUAL PSYCHOTHERAPY, SUPPORTIVE (05/18/18) INTRODUCTION OF SERUM/TOX/VACCINE INTO MUSCLE, PERC APPROACH (07/01/17) VACCINATION NEC (02/06/15) Family History: States: Unknown Family Hx - Social History Hx Tobacco Use: No Hx Alcohol Use: No Hx Substance Use: No - Immunization History Hx Tetanus Toxoid Vaccination: Yes Hx Influenza Vaccination: Yes Hx Pneumococcal Vaccination: Yes ED Course And Treatment - Laboratory Results Result Diagrams: 11/17/18 16:01 11/17/18 16:34 Lab Results: pO2 57 mm/Hg (30-55) H 11/17/18 14:00 VBG pH 7.06 (7.32-7.43) L* 11/17/18 14:00 VBG pCO2 21 mmHg (40-60) L 11/17/18 14:00 VBG HCO3 6.5 mmol/L 11/17/18 14:00 VBG Total CO2 6.5 mmol/L (22-28) L 11/17/18 14:00 VBG O2 Sat (Calc) 86.4 % (40-65) H 11/17/18 14:00 VBG Base Excess -22.8 mmol/L (0.0-2.0) L 11/17/18 14:00 VBG Potassium 4.4 mmol/L (3.6-5.2) 11/17/18 14:00 Sodium 137.0 mmol/l (132-148) 11/17/18 14:00 Chloride 100.0 mmol/L (98-107) 11/17/18 14:00 Glucose 535 mg/dl (65-105) H* D 11/17/18 14:00 Lactate 2.4 mmol/L (0.7-2.1) H 11/17/18 14:00 Crit Value Called To Lucie ojeda 11/17/18 14:00 Crit Value Called By Ayleen luke 11/17/18 14:00 Crit Value Read Back Y 11/17/18 14:00 Blood Gas Notified Time 1603 11/17/18 14:00 Total Bilirubin 0.7 mg/dL (0.2-1.3) 11/17/18 16:34 AST 23 U/L (14-36) 11/17/18 16:34 ALT 11 U/L (9-52) 11/17/18 16:34 Alkaline Phosphatase 128 U/L (38-126) H D 11/17/18 16:34 Total Protein 7.3 g/dL (6.3-8.3) 11/17/18 16:34 Albumin 4.4 g/dL (3.5-5.0) 11/17/18 16:34 Globulin 2.9 gm/dL (2.2-3.9) 11/17/18 16:34 Albumin/Globulin Ratio 1.5 (1.0-2.1) 11/17/18 16:34 O2 Sat by Pulse Oximetry: 98 Disposition - Disposition
[2018-11-17 17:31] LABS: BANDS 15 % (0-2); LYMPHOCYTE 1 % (20-40); MONOCYTE 26 % (0-10); NEUTROPHIL 58 % (50-75); TOTAL CELLS COUNTED 100
[2018-11-17 17:32] LABS: PLATELET ESTIMATE SLIGHTLY DECREASED (NORMAL)
--- NOTE | 2018-11-17 17:56 | C.PDOC ---
History Of Present Illness 68 year old female presents to the ED for evaluation. Patient states she has been feeling unwell, reporting generalized weakness, diffuse abdominal pain and vomiting for the past three days. She denies fever, chills. Time Seen by Provider: 11/17/18 15:19 Chief Complaint (Nursing): Abdominal Pain History Per: Patient History/Exam Limitations: no limitations Onset/Duration Of Symptoms: Days (3) Current Symptoms Are (Timing): Still Present Associated Infectious Symptoms: Vomiting Additional History Per: Patient Past Medical History Reviewed: Historical Data, Nursing Documentation, Vital Signs Vital Signs: Last Vital Signs Temp 97.3 F L 11/17/18 14:56 Pulse 119 H 11/17/18 17:48 Resp 20 11/17/18 17:48 BP 147/49 L 11/17/18 17:48 Pulse Ox 95 11/17/18 17:48 - Medical History PMH: Anxiety, Arthritis, Asthma, Bipolar Disorder, Depression, Diabetes, Gastritis, HTN, Hypercholesterolemia, Osteoporosis, Paranoia, Schizophrenia Denies: Crohn's Disease, Diverticulitis, Gall Bladder Disease, Hepatitis, HIV, Pancreatitis, Chronic Kidney Disease, Seizures, Sexually Transmitted Disease Surgical History: Appendectomy, Coronary Stent (PCI of the LAD with stent insertion ( [facility]) in 2007 in [place].) - [facility] Procedures EXCIS DEBRIDE OF WOUND, INFECT, OR BURN (02/06/15) EXCISION OF SIGMOID COLON, ENDO, DIAGN (06/15/18) EXCISION OF STOMACH, ENDO, DIAGN (06/15/18) GROUP PSYCHOTHERAPY (05/18/18) INDIVIDUAL PSYCHOTHERAPY, SUPPORTIVE (05/18/18) INTRODUCTION OF SERUM/TOX/VACCINE INTO MUSCLE, PERC APPROACH (07/01/17) VACCINATION NEC (02/06/15) Family History: States: Unknown Family Hx - Social History Hx Tobacco Use: No Hx Alcohol Use: No Hx Substance Use: No - Immunization History Hx Tetanus Toxoid Vaccination: Yes Hx Influenza Vaccination: Yes Hx Pneumococcal Vaccination: Yes Review Of Systems Constitutional: Positive for: Weakness. Negative for: Fever, Chills Gastrointestinal: Positive for: Vomiting, Abdominal Pain Physical Exam - Physical Exam Appears: No Acute Distress, Other (ill-appearing ) Skin: Normal Color, Warm, Dry Head: Atraumatic, Normacephalic Eye(s): bilateral: Normal Inspection Oral Mucosa: Moist, Other (fruity odor noted from breath ) Neck: Supple Chest: Symmetrical, No Deformity, No Tenderness Cardiovascular: Rhythm Regular, No Murmur Respiratory: Normal Breath Sounds, No Rales, No Rhonchi, No Wheezing Gastrointestinal/Abdominal: Soft, Tenderness (diffuse ), No Guarding, No Rebound Extremity: Normal ROM, Capillary Refill (less than 2 seconds ) Neurological/Psych: Oriented x3, Normal Speech, Normal Cognition ED Course And Treatment - Laboratory Results Result Diagrams: 11/17/18 16:01 11/17/18 16:34 Lab Results: pO2 57 mm/Hg (30-55) H 11/17/18 14:00 VBG pH 7.06 (7.32-7.43) L* 11/17/18 14:00 VBG pCO2 21 mmHg (40-60) L 11/17/18 14:00 VBG HCO3 6.5 mmol/L 11/17/18 14:00 VBG Total CO2 6.5 mmol/L (22-28) L 11/17/18 14:00 VBG O2 Sat (Calc) 86.4 % (40-65) H 11/17/18 14:00 VBG Base Excess -22.8 mmol/L (0.0-2.0) L 11/17/18 14:00 VBG Potassium 4.4 mmol/L (3.6-5.2) 11/17/18 14:00 Sodium 137.0 mmol/l (132-148) 11/17/18 14:00 Chloride 100.0 mmol/L (98-107) 11/17/18 14:00 Glucose 535 mg/dl (65-105) H* D 11/17/18 14:00 Lactate 2.4 mmol/L (0.7-2.1) H 11/17/18 14:00 Crit Value Called To Lucie ojeda 11/17/18 14:00 Crit Value Called By Ayleen luke 11/17/18 14:00 Crit Value Read Back Y 11/17/18 14:00 Blood Gas Notified Time 1603 11/17/18 14:00 Total Bilirubin 0.7 mg/dL (0.2-1.3) 11/17/18 16:34 AST 23 U/L (14-36) 11/17/18 16:34 ALT 11 U/L (9-52) 11/17/18 16:34 Alkaline Phosphatase 128 U/L (38-126) H D 11/17/18 16:34 Total Protein 7.3 g/dL (6.3-8.3) 11/17/18 16:34 Albumin 4.4 g/dL (3.5-5.0) 11/17/18 16:34 Globulin 2.9 gm/dL (2.2-3.9) 11/17/18 16:34 Albumin/Globulin Ratio 1.5 (1.0-2.1) 11/17/18 16:34 Urine Color Yellow (YELLOW) 11/17/18 16:47 Urine Clarity Clear (Clear) 11/17/18 16:47 Urine pH 5.0 (5.0-8.0) 11/17/18 16:47 Ur Specific [place] 1.017 (1.003-1.030) 11/17/18 16:47 Urine Protein 2+ mg/dL (NEGATIVE) H 11/17/18 16:47 Urine Glucose (UA) 3+ mg/dL (Normal) H 11/17/18 16:47 Urine Ketones 2+ mg/dL (NEGATIVE) H 11/17/18 16:47 Urine Blood 1+ (NEGATIVE) H 11/17/18 16:47 Urine Nitrate Negative (NEGATIVE) 11/17/18 16:47 Urine Bilirubin Negative (NEGATIVE) 11/17/18 16:47 Urine Urobilinogen Normal mg/dL (0.2-1.0) 11/17/18 16:47 Ur Leukocyte Esterase Neg Rosio/uL (Negative) 11/17/18 16:47 Urine WBC (Auto) 1 /hpf (0-5) 11/17/18 16:47 Urine RBC (Auto) 8 /hpf (0-3) H 11/17/18 16:47 Ur Squamous Epith Cells < 1 /hpf (0-5) 11/17/18 16:47 Urine Bacteria Rare (<OCC) 11/17/18 16:47 Hyaline Casts 3-5 /lpf (0-2) H 11/17/18 16:47 ECG: Interpreted By Me, Viewed By Me ECG Rhythm: Sinus Tachycardia Interpretation Of ECG: Sinus Tachycardia at rate 118bpm. Occasional PVCs noted. Some T wave abnormalities noted in anterior and inferior leads. Rate From EC O2 Sat by Pulse Oximetry: 95 Progress Note: Bloodwork including VBG, urinalysis, CXR, EKG ordered and reviewed. Patient found to be in DKA. Patient given fluids and bolus of insulin drip. Case discussed with Dr. Dsouza (ICU) and Dr. Lynn. Dr. Dsouza accepts the patient to ICU. Dr. Lynn accepts the patient to his service. Disposition - Disposition Disposition: HOSPITALIZED Disposition Time: 17:54 Condition: SERIOUS - Clinical Impression Clinical Impression: DKA (diabetic ketoacidoses) - PA / DOWEL MACHINE OPERATOR / Resident Statement MD/DO has reviewed & agrees with the documentation as recorded. - Scribe Statement The provider has reviewed the documentation as recorded by the Scribe (Madison Noriega) All medical record entries made by the Scribe were at my direction and personally dictated by me. I have reviewed the chart and agree that the record accurately reflects my personal performance of the history, physical exam, medical decision making, and the department course for this patient. I have also personally directed, reviewed, and agree with the discharge instructions and disposition. Decision To Admit - Pt Status Changed To: Hospital Disposition Of: Inpatient - Admit Certification Admit to Inpatient:: After my assessment, the patient will require hospitalization for at least two midnights. This is because of the severity of symptoms shown, intensity of services needed, and/or the medical risk in this patient being treated as an outpatient. - InPatient: Physician Admission Certification: I certify that this patient requires 2 or more midnights of care for the following reason:: patient is critical in ICU, needs more than 2 days of hospitalization - . Bed Request Type: ICU Admitting Physician: Cornell Lynn Patient Diagnosis: DKA (diabetic ketoacidoses)
[2018-11-17] MEDS ORDERED: Sodium Chloride 0.9% 1,000 ML ONE (18:30)
[2018-11-17] MEDS ORDERED: Sodium Chloride 0.9% 1,000 ML IV SCH (18:30)
[2018-11-17 18:51] LABS: CK-MB 2.17 ng/mL (0.0-3.38); TROPONIN I 0.037 ng/mL (0.00-0.120)
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
[2018-11-17] MEDS ORDERED: Insulin Human Regular 100 UNIT in Sodium Chloride 0.9% 99 ML IV SCH ×2 (19:00→20:00)
[2018-11-17 19:20] LABS: CALCIUM 9.5 mg/dl (8.6-10.4)
[2018-11-17] MEDS ORDERED: Morphine 4 MG/ML VIAL ONE (19:24)
[2018-11-17] MEDS ORDERED: Oxycodone/Acetaminophen 5/325 mg Tab ONE (20:36)
[2018-11-17] MEDS: Oxycodone/Acetaminophen 5/325 mg Tab PO PRN (20:45)
[2018-11-17 22:53] LABS: BLOOD UREA NITROGEN 18 mg/dL (7-17); CALCIUM 8.3 mg/dl (8.6-10.4); GFR NON-AFRICAN AMERICAN 55
[2018-11-17] MEDS ORDERED: Insulin Detemir 100 units/ml Vial (Levemir) SC STA (23:10)
[2018-11-17] MEDS ORDERED: Glucagon Recombinant 1 mg Inj IM PRN (23:12)
[2018-11-17] MEDS ORDERED: Dextrose 50% SYRINGE Inj (50 ml) IV PRN (23:12)
[2018-11-17] MEDS ORDERED: (Novolog) Insulin Aspart, Recombinant 100 u/ml 10 ml vial SC SCH (23:15)
[2018-11-18] MEDS: (Novolog) Insulin Aspart, Recombinant 100 u/ml 10 ml vial SC SCH ×6 (00:44→22:00)
[2018-11-18] MEDS ORDERED: Oxycodone/Acetaminophen 5/325 mg Tab PO STA (00:45)
[2018-11-18 05:33] LABS: BASO # 0.1 K/uL (0.0-0.2); BASO % 0.2 % (0.0-2.0); HEMOGLOBIN 11.3 g/dL (11.0-16.0); LYMPH # 0.3 K/uL (1.0-4.3); LYMPH % 0.7 % (20.0-40.0); MEAN CELL VOLUME 93.2 fL (81.0-99.0); MEAN CORPUSCULAR HEMOGLOBIN 30.7 pg (27.0-31.0); MEAN CORPUSCULAR HGB CONC 32.9 g/dL (33.0-37.0); MEAN PLATELET VOLUME 10.4 fL (7.2-11.7); MONO # 11.1 K/uL (0.0-0.8); MONO % 29.5 % (0.0-10.0); NEUT % 69.6 % (50.0-75.0); PLATELET COUNT 96 K/uL (130-400); RBC 3.68 Mil/uL (3.80-5.20); RED CELL DISTRIBUTION WIDTH 13.1 % (11.5-14.5)
[2018-11-18 05:55] LABS: ALB/GLOB RATIO 1.1 (1.0-2.1); ALBUMIN 3.2 g/dL (3.5-5.0); ALT/SGPT 18 U/L (9-52); AST/SGOT 17 U/L (14-36); BLOOD UREA NITROGEN 17 mg/dL (7-17); CALCIUM 8.8 mg/dl (8.6-10.4); GFR NON-AFRICAN AMERICAN 55
--- NOTE | 2018-11-18 07:34 | RAD ---
Date of service: 11/17/2018 HISTORY: Diabetic COMPARISON: Portable chest 06/15/2018. FINDINGS: LUNGS: No active pulmonary disease. PLEURA: No significant pleural effusion identified, no pneumothorax apparent. CARDIOVASCULAR: Calcific atherosclerotic changes are seen related to the thoracic aorta. Normal cardiac size. No pulmonary vascular congestion. OSSEOUS STRUCTURES: No significant abnormalities. VISUALIZED UPPER ABDOMEN: Normal. OTHER FINDINGS: None. IMPRESSION: No interval acute cardiopulmonary disease appreciated.
[2018-11-18 08:12] LABS: BANDS 43 % (0-2); LYMPHOCYTE 3 % (20-40); MONOCYTE 15 % (0-10); NEUTROPHIL 39 % (50-75); PLATELET ESTIMATE DECREASED (NORMAL); TOTAL CELLS COUNTED 100
[2018-11-18] MEDS: Potassium Phosphate 15 MMOLE in Sodium Chloride 0.9% 250 ML IVPB SCH ×2 (08:40→14:41)
[2018-11-18] MEDS: Oxycodone/Acetaminophen 5/325 mg Tab PO PRN (08:52)
[2018-11-18 10:05] LABS: WHITE BLOOD COUNT 37.5 K/uL (4.8-10.8)
--- NOTE | 2018-11-18 10:58 | CP.CCUPN ---
<Martha Romeor - Last Filed: 11/18/18 10:59> CCU Subjective - Physician Review Events Since Last Encounter (Free Text): ICU Progress Note for Dr. Wesley Patient seen and examined this morning. Patient states she is still in pain: her legs, her abdomen, and her back. BG normalized to 150-200s overnight with insulin drip. Now insulin drip off. Patient will be given clear liquid diabetic diet this morning. Per chart review, patient's PMHx is significantly more than just DM. 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 Patient's abdominal pain documented in Dr. Loja psych consult in 2018. WBC 31.5 to 37.5 this morning. CXR negative. Patient continues to be afebrile. Patient remains tachycardic this morning 100s-120s. No infectious workup started. During rounds, we ordered cipro (no zosyn due to PCN allergy), vanco, procal, bcx, ucx, sputum cx, and ID consult Dr. Arellano. We also ordered repeat beta hydroxybuterate. Patient is no longer needing ICU service and is downgraded to med surg status. case discussed with Dr. Meet Romero PGY1 11/18/18 10:58 CCU Objective - Vital Signs / Intake & Output Intake and Output (Last 8hrs): Intake & Output 11/17/18 11/18/18 11/18/18 22:59 06:59 14:59 Intake Total 514 1256 Output Total 50 900 Balance 464 356 Weight 143 lb 1.6 oz Intake: IV 7 3 Intake, IV Amount 507 1203 R hand #20 7 3 RH #20 500 1200 Oral 0 50 Output: Urine 900 Urine, Voided 900 Emesis 50 Other: Voiding Method Bedpan # Voids Urine, Voided 1 - Medications Active Medications: Active Medications Generic Name Dose Route Start Last Admin Trade Name Freq PRN Reason Stop Dose Admin Dextrose 0 ml 11/17/18 23:12 Dextrose 50% Inj IV STAT PRN Hypoglycemia Protocol Protocol Dextrose 0 gm 11/17/18 23:12 Glutose 15 PO ONCE PRN Hypoglycemia Protocol Protocol Famotidine 20 mg 11/17/18 18:26 11/18/18 09:29 Pepcid IVP 20 mg DAILY PIERO Administration Glucagon 0 mg 11/17/18 23:12 Glucagen Diagnostic Kit IM STAT PRN Hypoglycemia Protocol Protocol Potassium Chloride 20 meq/ 1,010 mls @ 150 mls/hr 11/17/18 23:11 11/18/18 09:27 Sodium Chloride IV 150 mls/hr .[id number] PIERO Administration Dextrose 1,000 mls @ 0 mls/hr 11/17/18 23:12 Dextrose 5% In Water 1000 Ml IV .Q0M PRN Hypoglycemia Protocol Protocol Per Protocol Potassium Phosphate 15 mmole/ 255 mls @ 42.5 mls/hr 11/18/18 08:00 11/18/18 08:40 Sodium Chloride IVPB 11/18/18 19:59 42.5 mls/hr Q6H PIERO Administration Vancomycin HCl 1 gm/ Sodium 250 mls @ 166.7 mls/hr 11/18/18 09:45 Chloride IVPB Q24H PIERO Protocol Ciprofloxacin 400 mg in 200 mls @ 133 mls/hr 11/18/18 10:00 Cipro 400mg/200ml Dsw IVPB Q12H PIERO Protocol Magnesium Sulfate/Dextrose 1 gm in 100 mls @ 200 mls/hr 11/18/18 11:00 Magnesium Sulfate 1 Gm/100 Ml D5w IVPB 11/18/18 11:29 ONCE ONE Insulin Aspart 0 unit 11/18/18 11:30 Novolog SC ACHS PIERO Protocol Ondansetron HCl 4 mg 11/17/18 20:26 11/17/18 20:47 Zofran Inj IVP 4 mg Q4 PRN Administration Nausea/Vomiting Oxycodone/Acetaminophen 1 tab 11/17/18 20:29 11/18/18 08:52 Percocet 5/325 Mg Tab PO 11/20/18 20:30 1 tab Q6H PRN Administration Pain, severe (8-10) - Patient Studies Lab Studies: Lab Studies 11/18/18 11/18/18 11/18/18 Range/Units 07:48 05:20 05:20 WBC (4.8-10.8) K/uL RBC (3.80-5.20) Mil/uL Hgb (11.0-16.0) g/dL Hct (34.0-47.0) % MCV (81.0-99.0) fL MCH (27.0-31.0) pg MCHC (33.0-37.0) g/dL RDW (11.5-14.5) % Plt Count (130-400) K/uL MPV (7.2-11.7) fL Neut % (Auto) (50.0-75.0) % Lymph % (Auto) (20.0-40.0) % [place] % (Auto) (0.0-10.0) % Eos % (Auto) (0.0-4.0) % Baso % (Auto) (0.0-2.0) % Neut # (Auto) (1.8-7.0) K/uL Lymph # (Auto) (1.0-4.3) K/uL [place] # (Auto) (0.0-0.8) K/uL Eos # (Auto) (0.0-0.7) K/uL Baso # (Auto) (0.0-0.2) K/uL Neutrophils % (Manual) (50-75) % Band Neutrophils % (0-2) % Lymphocytes % (Manual) (20-40) % Monocytes % (Manual) (0-10) % Platelet Estimate (NORMAL) RBC Morphology pO2 (30-55) mm/Hg VBG pH (7.32-7.43) VBG pCO2 (40-60) mmHg VBG HCO3 mmol/L VBG Total CO2 (22-28) mmol/L VBG O2 Sat (Calc) (40-65) % VBG Base Excess (0.0-2.0) mmol/L VBG Potassium (3.6-5.2) mmol/L Sodium 139 (132-148) mmol/l Chloride 110 H (98-107) mmol/L Glucose (65-105) mg/dl Lactate (0.7-2.1) mmol/L Crit Value Called To Crit Value Called By Crit Value Read Back Blood Gas Notified Time Potassium 3.3 L (3.6-5.2) mmol/L Carbon Dioxide 23 (22-30) mmol/L Anion Gap 10 (10-20) BUN 17 (7-17) mg/dL Creatinine 1.0 (0.7-1.2) mg/dL Est GFR ( Amer) > 60 Est GFR (Non-Af Amer) 55 POC Glucose (mg/dL) 89 (65-110) mg/dL Random Glucose 101 D (65-105) mg/dL Hemoglobin A1c 11.2 H D (4.2-6.5) % Calcium 8.8 (8.6-10.4) mg/dl Phosphorus 1.2 L (2.5-4.5) mg/dL Magnesium 1.3 L (1.6-2.3) mg/dL Total Bilirubin 0.5 (0.2-1.3) mg/dL AST 17 (14-36) U/L ALT 18 (9-52) U/L Alkaline Phosphatase 94 (38-126) U/L Total Creatine Kinase (30-135) U/L CK-MB (Mass) (0.0-3.38) ng/mL Troponin I (0.00-0.120) ng/mL Total Protein 6.1 L (6.3-8.3) g/dL Albumin 3.2 L D (3.5-5.0) g/dL Globulin 2.9 (2.2-3.9) gm/dL Albumin/Globulin Ratio 1.1 (1.0-2.1) Venous Blood Potassium (3.6-5.2) mmol/L Urine Color (YELLOW) Urine Clarity (Clear) Urine pH (5.0-8.0) Ur Specific [place] (1.003-1.030) Urine Protein (NEGATIVE) mg/dL Urine Glucose (UA) (Normal) mg/dL Urine Ketones (NEGATIVE) mg/dL Urine Blood (NEGATIVE) Urine Nitrate (NEGATIVE) Urine Bilirubin (NEGATIVE) Urine Urobilinogen (0.2-1.0) mg/dL Ur Leukocyte Esterase (Negative) Rosio/uL Urine WBC (Auto) (0-5) /hpf Urine RBC (Auto) (0-3) /hpf Ur Squamous Epith Cells (0-5) /hpf Urine Bacteria (<OCC) Hyaline Casts (0-2) /lpf B-Hydroxybutyrate (0.02-0.27) mM 11/18/18 11/18/18 11/17/18 Range/Units 05:20 03:56 23:32 WBC 37.5 H* (4.8-10.8) K/uL RBC 3.68 L (3.80-5.20) Mil/uL Hgb 11.3 (11.0-16.0) g/dL Hct 34.3 (34.0-47.0) % MCV 93.2 D (81.0-99.0) fL MCH 30.7 (27.0-31.0) pg MCHC 32.9 L (33.0-37.0) g/dL RDW 13.1 (11.5-14.5) % Plt Count 96 L (130-400) K/uL MPV 10.4 (7.2-11.7) fL Neut % (Auto) 69.6 (50.0-75.0) % Lymph % (Auto) 0.7 L (20.0-40.0) % [place] % (Auto) 29.5 H (0.0-10.0) % Eos % (Auto) 0.0 (0.0-4.0) % Baso % (Auto) 0.2 (0.0-2.0) % Neut # (Auto) 26.0 H (1.8-7.0) K/uL Lymph # (Auto) 0.3 L (1.0-4.3) K/uL [place] # (Auto) 11.1 H (0.0-0.8) K/uL Eos # (Auto) 0.0 (0.0-0.7) K/uL Baso # (Auto) 0.1 (0.0-0.2) K/uL Neutrophils % (Manual) 39 L (50-75) % Band Neutrophils % 43 H* (0-2) % Lymphocytes % (Manual) 3 L (20-40) % Monocytes % (Manual) 15 H (0-10) % Platelet Estimate Decreased L (NORMAL) RBC Morphology Normal pO2 (30-55) mm/Hg VBG pH (7.32-7.43) VBG pCO2 (40-60) mmHg VBG HCO3 mmol/L VBG Total CO2 (22-28) mmol/L VBG O2 Sat (Calc) (40-65) % VBG Base Excess (0.0-2.0) mmol/L VBG Potassium (3.6-5.2) mmol/L Sodium (132-148) mmol/l Chloride (98-107) mmol/L Glucose (65-105) mg/dl Lactate (0.7-2.1) mmol/L Crit Value Called To Crit Value Called By Crit Value Read Back Blood Gas Notified Time Potassium (3.6-5.2) mmol/L Carbon Dioxide (22-30) mmol/L Anion Gap (10-20) BUN (7-17) mg/dL Creatinine (0.7-1.2) mg/dL Est GFR ( Amer) Est GFR (Non-Af Amer) POC Glucose (mg/dL) 155 H 154 H (65-110) mg/dL Random Glucose (65-105) mg/dL Hemoglobin A1c (4.2-6.5) % Calcium (8.6-10.4) mg/dl Phosphorus (2.5-4.5) mg/dL Magnesium (1.6-2.3) mg/dL Total Bilirubin (0.2-1.3) mg/dL AST (14-36) U/L ALT (9-52) U/L Alkaline Phosphatase (38-126) U/L Total Creatine Kinase (30-135) U/L CK-MB (Mass) (0.0-3.38) ng/mL Troponin I (0.00-0.120) ng/mL Total Protein (6.3-8.3) g/dL Albumin (3.5-5.0) g/dL Globulin (2.2-3.9) gm/dL Albumin/Globulin Ratio (1.0-2.1) Venous Blood Potassium (3.6-5.2) mmol/L Urine Color (YELLOW) Urine Clarity (Clear) Urine pH (5.0-8.0) Ur Specific [place] (1.003-1.030) Urine Protein (NEGATIVE) mg/dL Urine Glucose (UA) (Normal) mg/dL Urine Ketones (NEGATIVE) mg/dL Urine Blood (NEGATIVE) Urine Nitrate (NEGATIVE) Urine Bilirubin (NEGATIVE) Urine Urobilinogen (0.2-1.0) mg/dL Ur Leukocyte Esterase (Negative) Rosio/uL Urine WBC (Auto) (0-5) /hpf Urine RBC (Auto) (0-3) /hpf Ur Squamous Epith Cells (0-5) /hpf Urine Bacteria (<OCC) Hyaline Casts (0-2) /lpf B-Hydroxybutyrate (0.02-0.27) mM 11/17/18 11/17/18 11/17/18 Range/Units 22:59 22:36 22:12 WBC (4.8-10.8) K/uL RBC (3.80-5.20) Mil/uL Hgb (11.0-16.0) g/dL Hct (34.0-47.0) % MCV (81.0-99.0) fL MCH (27.0-31.0) pg MCHC (33.0-37.0) g/dL RDW (11.5-14.5) % Plt Count (130-400) K/uL MPV (7.2-11.7) fL Neut % (Auto) (50.0-75.0) % Lymph % (Auto) (20.0-40.0) % [place] % (Auto) (0.0-10.0) % Eos % (Auto) (0.0-4.0) % Baso % (Auto) (0.0-2.0) % Neut # (Auto) (1.8-7.0) K/uL Lymph # (Auto) (1.0-4.3) K/uL [place] # (Auto) (0.0-0.8) K/uL Eos # (Auto) (0.0-0.7) K/uL Baso # (Auto) (0.0-0.2) K/uL Neutrophils % (Manual) (50-75) % Band Neutrophils % (0-2) % Lymphocytes % (Manual) (20-40) % Monocytes % (Manual) (0-10) % Platelet Estimate (NORMAL) RBC Morphology pO2 (30-55) mm/Hg VBG pH (7.32-7.43) VBG pCO2 (40-60) mmHg VBG HCO3 mmol/L VBG Total CO2 (22-28) mmol/L VBG O2 Sat (Calc) (40-65) % VBG Base Excess (0.0-2.0) mmol/L VBG Potassium (3.6-5.2) mmol/L Sodium 137 (132-148) mmol/l Chloride 108 H (98-107) mmol/L Glucose (65-105) mg/dl Lactate (0.7-2.1) mmol/L Crit Value Called To Crit Value Called By Crit Value Read Back Blood Gas Notified Time Potassium 3.2 L (3.6-5.2) mmol/L Carbon Dioxide 17 L (22-30) mmol/L Anion Gap 15 (10-20) BUN 18 H (7-17) mg/dL Creatinine 1.0 (0.7-1.2) mg/dL Est GFR ( Amer) > 60 Est GFR (Non-Af Amer) 55 POC Glucose (mg/dL) 179 H 217 H (65-110) mg/dL Random Glucose 184 H D (65-105) mg/dL Hemoglobin A1c (4.2-6.5) % Calcium 8.3 L (8.6-10.4) mg/dl Phosphorus (2.5-4.5) mg/dL Magnesium (1.6-2.3) mg/dL Total Bilirubin (0.2-1.3) mg/dL AST (14-36) U/L ALT (9-52) U/L Alkaline Phosphatase (38-126) U/L Total Creatine Kinase (30-135) U/L CK-MB (Mass) (0.0-3.38) ng/mL Troponin I (0.00-0.120) ng/mL Total Protein (6.3-8.3) g/dL Albumin (3.5-5.0) g/dL Globulin (2.2-3.9) gm/dL Albumin/Globulin Ratio (1.0-2.1) Venous Blood Potassium (3.6-5.2) mmol/L Urine Color (YELLOW) Urine Clarity (Clear) Urine pH (5.0-8.0) Ur Specific [place] (1.003-1.030) Urine Protein (NEGATIVE) mg/dL Urine Glucose (UA) (Normal) mg/dL Urine Ketones (NEGATIVE) mg/dL Urine Blood (NEGATIVE) Urine Nitrate (NEGATIVE) Urine Bilirubin (NEGATIVE) Urine Urobilinogen (0.2-1.0) mg/dL Ur Leukocyte Esterase (Negative) Rosio/uL Urine WBC (Auto) (0-5) /hpf Urine RBC (Auto) (0-3) /hpf Ur Squamous Epith Cells (0-5) /hpf Urine Bacteria (<OCC) Hyaline Casts (0-2) /lpf B-Hydroxybutyrate (0.02-0.27) mM 11/17/18 11/17/18 11/17/18 Range/Units 21:22 20:06 18:55 WBC (4.8-10.8) K/uL RBC (3.80-5.20) Mil/uL Hgb (11.0-16.0) g/dL Hct (34.0-47.0) % MCV (81.0-99.0) fL MCH (27.0-31.0) pg MCHC (33.0-37.0) g/dL RDW (11.5-14.5) % Plt Count (130-400) K/uL MPV (7.2-11.7) fL Neut % (Auto) (50.0-75.0) % Lymph % (Auto) (20.0-40.0) % [place] % (Auto) (0.0-10.0) % Eos % (Auto) (0.0-4.0) % Baso % (Auto) (0.0-2.0) % Neut # (Auto) (1.8-7.0) K/uL Lymph # (Auto) (1.0-4.3) K/uL [place] # (Auto) (0.0-0.8) K/uL Eos # (Auto) (0.0-0.7) K/uL Baso # (Auto) (0.0-0.2) K/uL Neutrophils % (Manual) (50-75) % Band Neutrophils % (0-2) % Lymphocytes % (Manual) (20-40) % Monocytes % (Manual) (0-10) % Platelet Estimate (NORMAL) RBC Morphology pO2 (30-55) mm/Hg VBG pH (7.32-7.43) VBG pCO2 (40-60) mmHg VBG HCO3 mmol/L VBG Total CO2 (22-28) mmol/L VBG O2 Sat (Calc) (40-65) % VBG Base Excess (0.0-2.0) mmol/L VBG Potassium (3.6-5.2) mmol/L Sodium (132-148) mmol/l Chloride (98-107) mmol/L Glucose (65-105) mg/dl Lactate (0.7-2.1) mmol/L Crit Value Called To Crit Value Called By Crit Value Read Back Blood Gas Notified Time Potassium (3.6-5.2) mmol/L Carbon Dioxide (22-30) mmol/L Anion Gap (10-20) BUN (7-17) mg/dL Creatinine (0.7-1.2) mg/dL Est GFR ( Amer) Est GFR (Non-Af Amer) POC Glucose (mg/dL) 252 H 296 H 440 H* (65-110) mg/dL Random Glucose (65-105) mg/dL Hemoglobin A1c (4.2-6.5) % Calcium (8.6-10.4) mg/dl Phosphorus (2.5-4.5) mg/dL Magnesium (1.6-2.3) mg/dL Total Bilirubin (0.2-1.3) mg/dL AST (14-36) U/L ALT (9-52) U/L Alkaline Phosphatase (38-126) U/L Total Creatine Kinase (30-135) U/L CK-MB (Mass) (0.0-3.38) ng/mL Troponin I (0.00-0.120) ng/mL Total Protein (6.3-8.3) g/dL Albumin (3.5-5.0) g/dL Globulin (2.2-3.9) gm/dL Albumin/Globulin Ratio (1.0-2.1) Venous Blood Potassium (3.6-5.2) mmol/L Urine Color (YELLOW) Urine Clarity (Clear) Urine pH (5.0-8.0) Ur Specific [place] (1.003-1.030) Urine Protein (NEGATIVE) mg/dL Urine Glucose (UA) (Normal) mg/dL Urine Ketones (NEGATIVE) mg/dL Urine Blood (NEGATIVE) Urine Nitrate (NEGATIVE) Urine Bilirubin (NEGATIVE) Urine Urobilinogen (0.2-1.0) mg/dL Ur Leukocyte Esterase (Negative) Rosio/uL Urine WBC (Auto) (0-5) /hpf Urine RBC (Auto) (0-3) /hpf Ur Squamous Epith Cells (0-5) /hpf Urine Bacteria (<OCC) Hyaline Casts (0-2) /lpf B-Hydroxybutyrate (0.02-0.27) mM 11/17/18 11/17/18 11/17/18 Range/Units 18:53 17:55 17:44 WBC (4.8-10.8) K/uL RBC (3.80-5.20) Mil/uL Hgb (11.0-16.0) g/dL Hct (34.0-47.0) % MCV (81.0-99.0) fL MCH (27.0-31.0) pg MCHC (33.0-37.0) g/dL RDW (11.5-14.5) % Plt Count (130-400) K/uL MPV (7.2-11.7) fL Neut % (Auto) (50.0-75.0) % Lymph % (Auto) (20.0-40.0) % [place] % (Auto) (0.0-10.0) % Eos % (Auto) (0.0-4.0) % Baso % (Auto) (0.0-2.0) % Neut # (Auto) (1.8-7.0) K/uL Lymph # (Auto) (1.0-4.3) K/uL [place] # (Auto) (0.0-0.8) K/uL Eos # (Auto) (0.0-0.7) K/uL Baso # (Auto) (0.0-0.2) K/uL Neutrophils % (Manual) (50-75) % Band Neutrophils % (0-2) % Lymphocytes % (Manual) (20-40) % Monocytes % (Manual) (0-10) % Platelet Estimate (NORMAL) RBC Morphology pO2 (30-55) mm/Hg VBG pH (7.32-7.43) VBG pCO2 (40-60) mmHg VBG HCO3 mmol/L VBG Total CO2 (22-28) mmol/L VBG O2 Sat (Calc) (40-65) % VBG Base Excess (0.0-2.0) mmol/L VBG Potassium (3.6-5.2) mmol/L Sodium 137 (132-148) mmol/l Chloride 102 (98-107) mmol/L Glucose (65-105) mg/dl Lactate (0.7-2.1) mmol/L Crit Value Called To Crit Value Called By Crit Value Read Back Blood Gas Notified Time Potassium 3.8 (3.6-5.2) mmol/L Carbon Dioxide 9 L* D (22-30) mmol/L Anion Gap 29 H (10-20) BUN 20 H (7-17) mg/dL Creatinine 1.4 H (0.7-1.2) mg/dL Est GFR ( Amer) 45 Est GFR (Non-Af Amer) 38 POC Glucose (mg/dL) 462 H* (65-110) mg/dL Random Glucose 412 H* D (65-105) mg/dL Hemoglobin A1c (4.2-6.5) % Calcium 9.5 (8.6-10.4) mg/dl Phosphorus (2.5-4.5) mg/dL Magnesium (1.6-2.3) mg/dL Total Bilirubin (0.2-1.3) mg/dL AST (14-36) U/L ALT (9-52) U/L Alkaline Phosphatase (38-126) U/L Total Creatine Kinase 52 (30-135) U/L CK-MB (Mass) 2.17 (0.0-3.38) ng/mL Troponin I 0.0370 (0.00-0.120) ng/mL Total Protein (6.3-8.3) g/dL Albumin (3.5-5.0) g/dL Globulin (2.2-3.9) gm/dL Albumin/Globulin Ratio (1.0-2.1) Venous Blood Potassium (3.6-5.2) mmol/L Urine Color (YELLOW) Urine Clarity (Clear) Urine pH (5.0-8.0) Ur Specific [place] (1.003-1.030) Urine Protein (NEGATIVE) mg/dL Urine Glucose (UA) (Normal) mg/dL Urine Ketones (NEGATIVE) mg/dL Urine Blood (NEGATIVE) Urine Nitrate (NEGATIVE) Urine Bilirubin (NEGATIVE) Urine Urobilinogen (0.2-1.0) mg/dL Ur Leukocyte Esterase (Negative) Rosio/uL Urine WBC (Auto) (0-5) /hpf Urine RBC (Auto) (0-3) /hpf Ur Squamous Epith Cells (0-5) /hpf Urine Bacteria (<OCC) Hyaline Casts (0-2) /lpf B-Hydroxybutyrate (0.02-0.27) mM 11/17/18 11/17/18 11/17/18 Range/Units 16:47 16:34 16:01 WBC 31.5 H D (4.8-10.8) K/uL RBC 4.15 (3.80-5.20) Mil/uL Hgb 12.9 (11.0-16.0) g/dL Hct 41.6 (34.0-47.0) % MCV 100.2 H D (81.0-99.0) fL MCH 31.0 (27.0-31.0) pg MCHC 30.9 L (33.0-37.0) g/dL RDW 14.1 (11.5-14.5) % Plt Count 115 L D (130-400) K/uL MPV 11.2 (7.2-11.7) fL Neut % (Auto) 73.7 (50.0-75.0) % Lymph % (Auto) 1.0 L (20.0-40.0) % [place] % (Auto) 25.0 H (0.0-10.0) % Eos % (Auto) 0.0 (0.0-4.0) % Baso % (Auto) 0.3 (0.0-2.0) % Neut # (Auto) 23.2 H (1.8-7.0) K/uL Lymph # (Auto) 0.3 L (1.0-4.3) K/uL [place] # (Auto) 7.9 H (0.0-0.8) K/uL Eos # (Auto) 0.0 (0.0-0.7) K/uL Baso # (Auto) 0.1 (0.0-0.2) K/uL Neutrophils % (Manual) 58 (50-75) % Band Neutrophils % 15 H* (0-2) % Lymphocytes % (Manual) 1 L (20-40) % Monocytes % (Manual) 26 H (0-10) % Platelet Estimate Slightly decreased L (NORMAL) RBC Morphology pO2 (30-55) mm/Hg VBG pH (7.32-7.43) VBG pCO2 (40-60) mmHg VBG HCO3 mmol/L VBG Total CO2 (22-28) mmol/L VBG O2 Sat (Calc) (40-65) % VBG Base Excess (0.0-2.0) mmol/L VBG Potassium (3.6-5.2) mmol/L Sodium 131 L (132-148) mmol/l Chloride 93 L (98-107) mmol/L Glucose (65-105) mg/dl Lactate (0.7-2.1) mmol/L Crit Value Called To Crit Value Called By Crit Value Read Back Blood Gas Notified Time Potassium 4.8 (3.6-5.2) mmol/L Carbon Dioxide 5 L* D (22-30) mmol/L Anion Gap 38 H (10-20) BUN 20 H (7-17) mg/dL Creatinine 1.6 H (0.7-1.2) mg/dL Est GFR ( Amer) 39 Est GFR (Non-Af Amer) 32 POC Glucose (mg/dL) (65-110) mg/dL Random Glucose 608 H* D (65-105) mg/dL Hemoglobin A1c (4.2-6.5) % Calcium 9.7 (8.6-10.4) mg/dl Phosphorus (2.5-4.5) mg/dL Magnesium (1.6-2.3) mg/dL Total Bilirubin 0.7 (0.2-1.3) mg/dL AST 23 (14-36) U/L ALT 11 (9-52) U/L Alkaline Phosphatase 128 H D (38-126) U/L Total Creatine Kinase (30-135) U/L CK-MB (Mass) (0.0-3.38) ng/mL Troponin I (0.00-0.120) ng/mL Total Protein 7.3 (6.3-8.3) g/dL Albumin 4.4 (3.5-5.0) g/dL Globulin 2.9 (2.2-3.9) gm/dL Albumin/Globulin Ratio 1.5 (1.0-2.1) Venous Blood Potassium (3.6-5.2) mmol/L Urine Color Yellow (YELLOW) Urine Clarity Clear (Clear) Urine pH 5.0 (5.0-8.0) Ur Specific [place] 1.017 (1.003-1.030) Urine Protein 2+ H (NEGATIVE) mg/dL Urine Glucose (UA) 3+ H (Normal) mg/dL Urine Ketones 2+ H (NEGATIVE) mg/dL Urine Blood 1+ H (NEGATIVE) Urine Nitrate Negative (NEGATIVE) Urine Bilirubin Negative (NEGATIVE) Urine Urobilinogen Normal (0.2-1.0) mg/dL Ur Leukocyte Esterase Neg (Negative) Rosio/uL Urine WBC (Auto) 1 (0-5) /hpf Urine RBC (Auto) 8 H (0-3) /hpf Ur Squamous Epith Cells < 1 (0-5) /hpf Urine Bacteria Rare (<OCC) Hyaline Casts 3-5 H (0-2) /lpf B-Hydroxybutyrate 12.8 H (0.02-0.27) mM 11/17/18 11/17/18 Range/Units 15:33 14:00 WBC (4.8-10.8) K/uL RBC (3.80-5.20) Mil/uL Hgb (11.0-16.0) g/dL Hct (34.0-47.0) % MCV (81.0-99.0) fL MCH (27.0-31.0) pg MCHC (33.0-37.0) g/dL RDW (11.5-14.5) % Plt Count (130-400) K/uL MPV (7.2-11.7) fL Neut % (Auto) (50.0-75.0) % Lymph % (Auto) (20.0-40.0) % [place] % (Auto) (0.0-10.0) % Eos % (Auto) (0.0-4.0) % Baso % (Auto) (0.0-2.0) % Neut # (Auto) (1.8-7.0) K/uL Lymph # (Auto) (1.0-4.3) K/uL [place]ner # (Auto) (0.0-0.8) K/uL Eos # (Auto) (0.0-0.7) K/uL Baso # (Auto) (0.0-0.2) K/uL Neutrophils % (Manual) (50-75) % Band Neutrophils % (0-2) % Lymphocytes % (Manual) (20-40) % Monocytes % (Manual) (0-10) % Platelet Estimate (NORMAL) RBC Morphology pO2 57 H (30-55) mm/Hg VBG pH 7.06 L* (7.32-7.43) VBG pCO2 21 L (40-60) mmHg VBG HCO3 6.5 mmol/L VBG Total CO2 6.5 L (22-28) mmol/L VBG O2 Sat (Calc) 86.4 H (40-65) % VBG Base Excess -22.8 L (0.0-2.0) mmol/L VBG Potassium 4.4 (3.6-5.2) mmol/L Sodium 137.0 (132-148) mmol/l Chloride 100.0 (98-107) mmol/L Glucose 535 H* D (65-105) mg/dl Lactate 2.4 H (0.7-2.1) mmol/L Crit Value Called To Lucie ojeda Crit Value Called By Ayleen luke Crit Value Read Back Y Blood Gas Notified Time 1603 Potassium (3.6-5.2) mmol/L Carbon Dioxide (22-30) mmol/L Anion Gap (10-20) BUN (7-17) mg/dL Creatinine (0.7-1.2) mg/dL Est GFR ( Amer) Est GFR (Non-Af Amer) POC Glucose (mg/dL) > 500 H* (65-110) mg/dL Random Glucose (65-105) mg/dL Hemoglobin A1c (4.2-6.5) % Calcium (8.6-10.4) mg/dl Phosphorus (2.5-4.5) mg/dL Magnesium (1.6-2.3) mg/dL Total Bilirubin (0.2-1.3) mg/dL AST (14-36) U/L ALT (9-52) U/L Alkaline Phosphatase (38-126) U/L Total Creatine Kinase (30-135) U/L CK-MB (Mass) (0.0-3.38) ng/mL Troponin I (0.00-0.120) ng/mL Total Protein (6.3-8.3) g/dL Albumin (3.5-5.0) g/dL Globulin (2.2-3.9) gm/dL Albumin/Globulin Ratio (1.0-2.1) Venous Blood Potassium 4.4 (3.6-5.2) mmol/L Urine Color (YELLOW) Urine Clarity (Clear) Urine pH (5.0-8.0) Ur Specific [place] (1.003-1.030) Urine Protein (NEGATIVE) mg/dL Urine Glucose (UA) (Normal) mg/dL Urine Ketones (NEGATIVE) mg/dL Urine Blood (NEGATIVE) Urine Nitrate (NEGATIVE) Urine Bilirubin (NEGATIVE) Urine Urobilinogen (0.2-1.0) mg/dL Ur Leukocyte Esterase (Negative) Rosio/uL Urine WBC (Auto) (0-5) /hpf Urine RBC (Auto) (0-3) /hpf Ur Squamous Epith Cells (0-5) /hpf Urine Bacteria (<OCC) Hyaline Casts (0-2) /lpf B-Hydroxybutyrate (0.02-0.27) mM Laboratory Results - last 24 hr 11/17/18 11/17/18 11/17/18 14:00 15:33 16:01 WBC 31.5 H D RBC 4.15 Hgb 12.9 Hct 41.6 MCV 100.2 H D MCH 31.0 MCHC 30.9 L RDW 14.1 Plt Count 115 L D MPV 11.2 Neut % (Auto) 73.7 Lymph % (Auto) 1.0 L [place]ner % (Auto) 25.0 H Eos % (Auto) 0.0 Baso % (Auto) 0.3 Neut # (Auto) 23.2 H Lymph # (Auto) 0.3 L [place] # (Auto) 7.9 H Eos # (Auto) 0.0 Baso # (Auto) 0.1 Neutrophils % (Manual) 58 Band Neutrophils % 15 H* Lymphocytes % (Manual) 1 L Monocytes % (Manual) 26 H Platelet Estimate Slightly decreased L RBC Morphology pO2 57 H VBG pH 7.06 L* VBG pCO2 21 L VBG HCO3 6.5 VBG Total CO2 6.5 L VBG O2 Sat (Calc) 86.4 H VBG Base Excess -22.8 L VBG Potassium 4.4 Sodium 137.0 Chloride 100.0 Glucose 535 H* D Lactate 2.4 H Crit Value Called To Lucie ojeda Crit Value Called By Ayleen luke Crit Value Read Back Y Blood Gas Notified Time 1603 Potassium Carbon Dioxide Anion Gap BUN Creatinine Est GFR ( Amer) Est GFR (Non-Af Amer) POC Glucose (mg/dL) > 500 H* Random Glucose Hemoglobin A1c Calcium Phosphorus Magnesium Total Bilirubin AST ALT Alkaline Phosphatase Total Creatine Kinase CK-MB (Mass) Troponin I Total Protein Albumin Globulin Albumin/Globulin Ratio Venous Blood Potassium 4.4 Urine Color Urine Clarity Urine pH Ur Specific [place] Urine Protein Urine Glucose (UA) Urine Ketones Urine Blood Urine Nitrate Urine Bilirubin Urine Urobilinogen Ur Leukocyte Esterase Urine WBC (Auto) Urine RBC (Auto) Ur Squamous Epith Cells Urine Bacteria Hyaline Casts B-Hydroxybutyrate 11/17/18 11/17/18 11/17/18 16:34 16:47 17:44 WBC RBC Hgb Hct MCV MCH MCHC RDW Plt Count MPV Neut % (Auto) Lymph % (Auto) [place] % (Auto) Eos % (Auto) Baso % (Auto) Neut # (Auto) Lymph # (Auto) [place] # (Auto) Eos # (Auto) Baso # (Auto) Neutrophils % (Manual) Band Neutrophils % Lymphocytes % (Manual) Monocytes % (Manual) Platelet Estimate RBC Morphology pO2 VBG pH VBG pCO2 VBG HCO3 VBG Total CO2 VBG O2 Sat (Calc) VBG Base Excess VBG Potassium Sodium 131 L Chloride 93 L Glucose Lactate Crit Value Called To Crit Value Called By Crit Value Read Back Blood Gas Notified Time Potassium 4.8 Carbon Dioxide 5 L* D Anion Gap 38 H BUN 20 H Creatinine 1.6 H Est GFR ( Amer) 39 Est GFR (Non-Af Amer) 32 POC Glucose (mg/dL) 462 H* Random Glucose 608 H* D Hemoglobin A1c Calcium 9.7 Phosphorus Magnesium Total Bilirubin 0.7 AST 23 ALT 11 Alkaline Phosphatase 128 H D Total Creatine Kinase CK-MB (Mass) Troponin I Total Protein 7.3 Albumin 4.4 Globulin 2.9 Albumin/Globulin Ratio 1.5 Venous Blood Potassium Urine Color Yellow Urine Clarity Clear Urine pH 5.0 Ur Specific [place] 1.017 Urine Protein 2+ H Urine Glucose (UA) 3+ H Urine Ketones 2+ H Urine Blood 1+ H Urine Nitrate Negative Urine Bilirubin Negative Urine Urobilinogen Normal Ur Leukocyte Esterase Neg Urine WBC (Auto) 1 Urine RBC (Auto) 8 H Ur Squamous Epith Cells < 1 Urine Bacteria Rare Hyaline Casts 3-5 H B-Hydroxybutyrate 12.8 H 0111/17/18 11/17/18 17:55 18:53 18:55 WBC RBC Hgb Hct MCV MCH MCHC RDW Plt Count MPV Neut % (Auto) Lymph % (Auto) [place] % (Auto) Eos % (Auto) Baso % (Auto) Neut # (Auto) Lymph # (Auto) [place] # (Auto) Eos # (Auto) Baso # (Auto) Neutrophils % (Manual) Band Neutrophils % Lymphocytes % (Manual) Monocytes % (Manual) Platelet Estimate RBC Morphology pO2 VBG pH VBG pCO2 VBG HCO3 VBG Total CO2 VBG O2 Sat (Calc) VBG Base Excess VBG Potassium Sodium 137 Chloride 102 Glucose Lactate Crit Value Called To Crit Value Called By Crit Value Read Back Blood Gas Notified Time Potassium 3.8 Carbon Dioxide 9 L* D Anion Gap 29 H BUN 20 H Creatinine 1.4 H Est GFR ( Amer) 45 Est GFR (Non-Af Amer) 38 POC Glucose (mg/dL) 440 H* Random Glucose 412 H* D Hemoglobin A1c Calcium 9.5 Phosphorus Magnesium Total Bilirubin AST ALT Alkaline Phosphatase Total Creatine Kinase 52 CK-MB (Mass) 2.17 Troponin I 0.0370 Total Protein Albumin Globulin Albumin/Globulin Ratio Venous Blood Potassium Urine Color Urine Clarity Urine pH Ur Specific [place] Urine Protein Urine Glucose (UA) Urine Ketones Urine Blood Urine Nitrate Urine Bilirubin Urine Urobilinogen Ur Leukocyte Esterase Urine WBC (Auto) Urine RBC (Auto) Ur Squamous Epith Cells Urine Bacteria Hyaline Casts B-Hydroxybutyrate 11/17/18 11/17/18 11/17/18 20:06 21:22 22:12 WBC RBC Hgb Hct MCV MCH MCHC RDW Plt Count MPV Neut % (Auto) Lymph % (Auto) Bon[place] % (Auto) Eos % (Auto) Baso % (Auto) Neut # (Auto) Lymph # (Auto) Bonner # (Auto) Eos # (Auto) Baso # (Auto) Neutrophils % (Manual) Band Neutrophils % Lymphocytes % (Manual) Monocytes % (Manual) Platelet Estimate RBC Morphology pO2 VBG pH VBG pCO2 VBG HCO3 VBG Total CO2 VBG O2 Sat (Calc) VBG Base Excess VBG Potassium Sodium Chloride Glucose Lactate Crit Value Called To Crit Value Called By Crit Value Read Back Blood Gas Notified Time Potassium Carbon Dioxide Anion Gap BUN Creatinine Est GFR ( Amer) Est GFR (Non-Af Amer) POC Glucose (mg/dL) 296 H 252 H 217 H Random Glucose Hemoglobin A1c Calcium Phosphorus Magnesium Total Bilirubin AST ALT Alkaline Phosphatase Total Creatine Kinase CK-MB (Mass) Troponin I Total Protein Albumin Globulin Albumin/Globulin Ratio Venous Blood Potassium Urine Color Urine Clarity Urine pH Ur Specific [place] Urine Protein Urine Glucose (UA) Urine Ketones Urine Blood Urine Nitrate Urine Bilirubin Urine Urobilinogen Ur Leukocyte Esterase Urine WBC (Auto) Urine RBC (Auto) Ur Squamous Epith Cells Urine Bacteria Hyaline Casts B-Hydroxybutyrate 11/17/18 11/17/18 11/17/18 22:36 22:59 23:32 WBC RBC Hgb Hct MCV MCH MCHC RDW Plt Count MPV Neut % (Auto) Lymph % (Auto) Bonner % (Auto) Eos % (Auto) Baso % (Auto) Neut # (Auto) Lymph # (Auto) [place] # (Auto) Eos # (Auto) Baso # (Auto) Neutrophils % (Manual) Band Neutrophils % Lymphocytes % (Manual) Monocytes % (Manual) Platelet Estimate RBC Morphology pO2 VBG pH VBG pCO2 VBG HCO3 VBG Total CO2 VBG O2 Sat (Calc) VBG Base Excess VBG Potassium Sodium 137 Chloride 108 H Glucose Lactate Crit Value Called To Crit Value Called By Crit Value Read Back Blood Gas Notified Time Potassium 3.2 L Carbon Dioxide 17 L Anion Gap 15 BUN 18 H Creatinine 1.0 Est GFR ( Amer) > 60 Est GFR (Non-Af Amer) 55 POC Glucose (mg/dL) 179 H 154 H Random Glucose 184 H D Hemoglobin A1c Calcium 8.3 L Phosphorus Magnesium Total Bilirubin AST ALT Alkaline Phosphatase Total Creatine Kinase CK-MB (Mass) Troponin I Total Protein Albumin Globulin Albumin/Globulin Ratio Venous Blood Potassium Urine Color Urine Clarity Urine pH Ur Specific [place] Urine Protein Urine Glucose (UA) Urine Ketones Urine Blood Urine Nitrate Urine Bilirubin Urine Urobilinogen Ur Leukocyte Esterase Urine WBC (Auto) Urine RBC (Auto) Ur Squamous Epith Cells Urine Bacteria Hyaline Casts B-Hydroxybutyrate 11/18/18 11/18/18 11/18/18 03:56 05:20 05:20 WBC 37.5 H* RBC 3.68 L Hgb 11.3 Hct 34.3 MCV 93.2 D MCH 30.7 MCHC 32.9 L RDW 13.1 Plt Count 96 L MPV 10.4 Neut % (Auto) 69.6 Lymph % (Auto) 0.7 L Bonner % (Auto) 29.5 H Eos % (Auto) 0.0 Baso % (Auto) 0.2 Neut # (Auto) 26.0 H Lymph # (Auto) 0.3 L Bonner # (Auto) 11.1 H Eos # (Auto) 0.0 Baso # (Auto) 0.1 Neutrophils % (Manual) 39 L Band Neutrophils % 43 H* Lymphocytes % (Manual) 3 L Monocytes % (Manual) 15 H Platelet Estimate Decreased L RBC Morphology Normal pO2 VBG pH VBG pCO2 VBG HCO3 VBG Total CO2 VBG O2 Sat (Calc) VBG Base Excess VBG Potassium Sodium Chloride Glucose Lactate Crit Value Called To Crit Value Called By Crit Value Read Back Blood Gas Notified Time Potassium Carbon Dioxide Anion Gap BUN Creatinine Est GFR ( Amer) Est GFR (Non-Af Amer) POC Glucose (mg/dL) 155 H Random Glucose Hemoglobin A1c 11.2 H D Calcium Phosphorus Magnesium Total Bilirubin AST ALT Alkaline Phosphatase Total Creatine Kinase CK-MB (Mass) Troponin I Total Protein Albumin Globulin Albumin/Globulin Ratio Venous Blood Potassium Urine Color Urine Clarity Urine pH Ur Specific [place] Urine Protein Urine Glucose (UA) Urine Ketones Urine Blood Urine Nitrate Urine Bilirubin Urine Urobilinogen Ur Leukocyte Esterase Urine WBC (Auto) Urine RBC (Auto) Ur Squamous Epith Cells Urine Bacteria Hyaline Casts B-Hydroxybutyrate 11/18/18 11/18/18 05:20 07:48 WBC RBC Hgb Hct MCV MCH MCHC RDW Plt Count MPV Neut % (Auto) Lymph % (Auto) [place] % (Auto) Eos % (Auto) Baso % (Auto) Neut # (Auto) Lymph # (Auto) [place] # (Auto) Eos # (Auto) Baso # (Auto) Neutrophils % (Manual) Band Neutrophils % Lymphocytes % (Manual) Monocytes % (Manual) Platelet Estimate RBC Morphology pO2 VBG pH VBG pCO2 VBG HCO3 VBG Total CO2 VBG O2 Sat (Calc) VBG Base Excess VBG Potassium Sodium 139 Chloride 110 H Glucose Lactate Crit Value Called To Crit Value Called By Crit Value Read Back Blood Gas Notified Time Potassium 3.3 L Carbon Dioxide 23 Anion Gap 10 BUN 17 Creatinine 1.0 Est GFR ( Amer) > 60 Est GFR (Non-Af Amer) 55 POC Glucose (mg/dL) 89 Random Glucose 101 D Hemoglobin A1c Calcium 8.8 Phosphorus 1.2 L Magnesium 1.3 L Total Bilirubin 0.5 AST 17 ALT 18 Alkaline Phosphatase 94 Total Creatine Kinase CK-MB (Mass) Troponin I Total Protein 6.1 L Albumin 3.2 L D Globulin 2.9 Albumin/Globulin Ratio 1.1 Venous Blood Potassium Urine Color Urine Clarity Urine pH Ur Specific [place] Urine Protein Urine Glucose (UA) Urine Ketones Urine Blood Urine Nitrate Urine Bilirubin Urine Urobilinogen Ur Leukocyte Esterase Urine WBC (Auto) Urine RBC (Auto) Ur Squamous Epith Cells Urine Bacteria Hyaline Casts B-Hydroxybutyrate Radiology Impressions: Radiology Impressions Chest X-Ray 11/17/18 15:32 IMPRESSION: No interval acute cardiopulmonary disease appreciated. EKG/Cardiology Studies: Cardiology / EKG Studies 11/17/18 15:32 ELECTROCARDIOGRAM Stat Comment: HW3 Mode Of Transportation: BED Reason For Exam: Diabetic Fingerstick Blood Sugar Results: 89 Critical Care Progress Note - Nutrition Nutrition: Nutrition Category Date Time Status Liquid Diet [DIET] Diets 11/18/18 Breakfast Active <Abhishek Wesley S - Last Filed: 11/18/18 16:43> CCU Subjective - Physician Review Critical Care Time Spent (in minutes): 40 CCU Objective - Vital Signs / Intake & Output Vital Signs (Last 4 hours): Vital Signs Pulse Resp BP Pulse Ox 11/18/18 15:02 92 H 18 121/50 L 94 L 11/18/18 15:00 91 H 16 93 L 11/18/18 14:02 94 H 19 121/50 L 94 L 11/18/18 14:00 92 H 14 95 11/18/18 13:02 98 H 15 118/54 L 94 L 11/18/18 13:00 99 H 14 95 Intake and Output (Last 8hrs): Intake & Output 11/18/18 11/18/18 11/18/18 06:59 14:59 22:59 Intake Total 1256 2195.0 262.5 Output Total 900 300 Balance 356 1895.0 262.5 Weight 143 lb 1.6 oz Intake: IV 3 Intake, IV Amount 1203 1355.0 142.5 Left Forearm 100 R hand #20 3 255.0 42.5 RH #20 1200 1000 100 Oral 50 840 120 Output: Urine 900 300 Urine, Voided 900 300 Other: # Voids Urine, Voided 1 1 - Medications Active Medications: Active Medications Generic Name Dose Route Start Last Admin Trade Name Freq PRN Reason Stop Dose Admin Dextrose 0 ml 11/17/18 23:12 Dextrose 50% Inj IV STAT PRN Hypoglycemia Protocol Protocol Dextrose 0 gm 11/17/18 23:12 Glutose 15 PO ONCE PRN Hypoglycemia Protocol Protocol Famotidine 20 mg 11/17/18 18:26 11/18/18 09:29 Pepcid IVP 20 mg DAILY PIERO Administration Glucagon 0 mg 11/17/18 23:12 Glucagen Diagnostic Kit IM STAT PRN Hypoglycemia Protocol Protocol Heparin Sodium (Porcine) 5,000 units 11/18/18 12:15 11/18/18 12:23 Heparin SC 5,000 units Q12 PIERO Administration Potassium Chloride 20 meq/ 1,010 mls @ 150 mls/hr 11/17/18 23:11 11/18/18 09:27 Sodium Chloride IV 150 mls/hr .[id number] PIERO Administration Dextrose 1,000 mls @ 0 mls/hr 11/17/18 23:12 Dextrose 5% In Water 1000 Ml IV .Q0M PRN Hypoglycemia Protocol Protocol Per Protocol Potassium Phosphate 15 mmole/ 255 mls @ 42.5 mls/hr 11/18/18 08:00 11/18/18 14:41 Sodium Chloride IVPB 11/18/18 19:59 42.5 mls/hr Q6H PIERO Administration Vancomycin HCl 1 gm/ Sodium 250 mls @ 166.7 mls/hr 11/18/18 11:30 11/18/18 12:02 Chloride IVPB 166.7 mls/hr Q24H PIERO Administration Protocol Ciprofloxacin 400 mg in 200 mls @ 133 mls/hr 11/18/18 14:00 11/18/18 13:45 Cipro 400mg/200ml Dsw IVPB 133 mls/hr Q12H PIERO Administration Protocol Tigecycline 50 mg/ Dextrose 100 mls @ 100 mls/hr 11/19/18 02:00 IVPB Q12H PIERO Protocol Insulin Aspart 0 unit 11/18/18 11:30 11/18/18 16:33 Novolog SC 2 units ACHS PIERO Administration Protocol Ondansetron HCl 4 mg 11/17/18 20:26 11/17/18 20:47 Zofran Inj IVP 4 mg Q4 PRN Administration Nausea/Vomiting Oxycodone/Acetaminophen 1 tab 11/17/18 20:29 11/18/18 08:52 Percocet 5/325 Mg Tab PO 11/20/18 20:30 1 tab Q6H PRN Administration Pain, severe (8-10) - Patient Studies Lab Studies: Lab Studies 11/18/18 11/18/18 11/18/18 Range/Units 16:01 11:51 11:51 WBC (4.8-10.8) K/uL RBC (3.80-5.20) Mil/uL Hgb (11.0-16.0) g/dL Hct (34.0-47.0) % MCV (81.0-99.0) fL MCH (27.0-31.0) pg MCHC (33.0-37.0) g/dL RDW (11.5-14.5) % Plt Count (130-400) K/uL MPV (7.2-11.7) fL Neut % (Auto) (50.0-75.0) % Lymph % (Auto) (20.0-40.0) % Bonner % (Auto) (0.0-10.0) % Eos % (Auto) (0.0-4.0) % Baso % (Auto) (0.0-2.0) % Neut # (Auto) (1.8-7.0) K/uL Lymph # (Auto) (1.0-4.3) K/uL [place] # (Auto) (0.0-0.8) K/uL Eos # (Auto) (0.0-0.7) K/uL Baso # (Auto) (0.0-0.2) K/uL Neutrophils % (Manual) (50-75) % Band Neutrophils % (0-2) % Lymphocytes % (Manual) (20-40) % Monocytes % (Manual) (0-10) % Platelet Estimate (NORMAL) RBC Morphology Puncture Site pCO2 (35-45) mm/Hg pO2 (80-100) mm/Hg HCO3 (21-28) mmol/L ABG pH (7.35-7.45) ABG Total CO2 (22-28) mmol/L ABG O2 Saturation (95-98) % ABG Base Excess (-2.0-3.0) mmol/L Peter Test ABG Potassium (3.6-5.2) mmol/L Glucose (65-105) mg/dl Lactate (0.7-2.1) mmol/L Liter Flow Crit Value Called To Crit Value Called By Crit Value Read Back Blood Gas Notified Time Sodium 135 (132-148) mmol/L Potassium 4.0 (3.6-5.2) mmol/L Chloride 108 H (98-107) mmol/L Carbon Dioxide 21 L (22-30) mmol/L Anion Gap 11 (10-20) BUN 18 H (7-17) mg/dL Creatinine 0.9 (0.7-1.2) mg/dL Est GFR ( Amer) > 60 Est GFR (Non-Af Amer) > 60 POC Glucose (mg/dL) 244 H (65-110) mg/dL Random Glucose 191 H D (65-105) mg/dL Hemoglobin A1c (4.2-6.5) % Calcium 8.5 L (8.6-10.4) mg/dl Phosphorus (2.5-4.5) mg/dL Magnesium (1.6-2.3) mg/dL Total Bilirubin (0.2-1.3) mg/dL AST (14-36) U/L ALT (9-52) U/L Alkaline Phosphatase (38-126) U/L Total Creatine Kinase (30-135) U/L CK-MB (Mass) (0.0-3.38) ng/mL Troponin I (0.00-0.120) ng/mL Total Protein (6.3-8.3) g/dL Albumin (3.5-5.0) g/dL Globulin (2.2-3.9) gm/dL Albumin/Globulin Ratio (1.0-2.1) Procalcitonin 9.02 H (0.19-0.49) NG/ML Arterial Blood Potassium (3.6-5.2) mmol/L Urine Color (YELLOW) Urine Clarity (Clear) Urine pH (5.0-8.0) Ur Specific [place] (1.003-1.030) Urine Protein (NEGATIVE) mg/dL Urine Glucose (UA) (Normal) mg/dL Urine Ketones (NEGATIVE) mg/dL Urine Blood (NEGATIVE) Urine Nitrate (NEGATIVE) Urine Bilirubin (NEGATIVE) Urine Urobilinogen (0.2-1.0) mg/dL Ur Leukocyte Esterase (Negative) Rosio/uL Urine WBC (Auto) (0-5) /hpf Urine RBC (Auto) (0-3) /hpf Ur Squamous Epith Cells (0-5) /hpf Urine Bacteria (<OCC) Hyaline Casts (0-2) /lpf B-Hydroxybutyrate 0.37 H (0.02-0.27) mM 11/18/18 11/18/18 11/18/18 Range/Units 11:29 11:08 07:48 WBC (4.8-10.8) K/uL RBC (3.80-5.20) Mil/uL Hgb (11.0-16.0) g/dL Hct (34.0-47.0) % MCV (81.0-99.0) fL MCH (27.0-31.0) pg MCHC (33.0-37.0) g/dL RDW (11.5-14.5) % Plt Count (130-400) K/uL MPV (7.2-11.7) fL Neut % (Auto) (50.0-75.0) % Lymph % (Auto) (20.0-40.0) % [place] % (Auto) (0.0-10.0) % Eos % (Auto) (0.0-4.0) % Baso % (Auto) (0.0-2.0) % Neut # (Auto) (1.8-7.0) K/uL Lymph # (Auto) (1.0-4.3) K/uL Bonner # (Auto) (0.0-0.8) K/uL Eos # (Auto) (0.0-0.7) K/uL Baso # (Auto) (0.0-0.2) K/uL Neutrophils % (Manual) (50-75) % Band Neutrophils % (0-2) % Lymphocytes % (Manual) (20-40) % Monocytes % (Manual) (0-10) % Platelet Estimate (NORMAL) RBC Morphology Puncture Site Lb pCO2 36 (35-45) mm/Hg pO2 82 (80-100) mm/Hg HCO3 21.8 (21-28) mmol/L ABG pH 7.37 (7.35-7.45) ABG Total CO2 21.9 L (22-28) mmol/L ABG O2 Saturation 98.4 H (95-98) % ABG Base Excess -3.9 L (-2.0-3.0) mmol/L Peter Test Na ABG Potassium 3.9 (3.6-5.2) mmol/L Glucose 116 H (65-105) mg/dl Lactate 1.2 (0.7-2.1) mmol/L Liter Flow 3.0 Crit Value Called To Dr wesley Crit Value Called By Nathanael vargas right of way manager Crit Value Read Back Y Blood Gas Notified Time 1111 Sodium 138.0 (132-148) mmol/L Potassium (3.6-5.2) mmol/L Chloride 111.0 H (98-107) mmol/L Carbon Dioxide (22-30) mmol/L Anion Gap (10-20) BUN (7-17) mg/dL Creatinine (0.7-1.2) mg/dL Est GFR ( Amer) Est GFR (Non-Af Amer) POC Glucose (mg/dL) 167 H 89 (65-110) mg/dL Random Glucose (65-105) mg/dL Hemoglobin A1c (4.2-6.5) % Calcium (8.6-10.4) mg/dl Phosphorus (2.5-4.5) mg/dL Magnesium (1.6-2.3) mg/dL Total Bilirubin (0.2-1.3) mg/dL AST (14-36) U/L ALT (9-52) U/L Alkaline Phosphatase (38-126) U/L Total Creatine Kinase (30-135) U/L CK-MB (Mass) (0.0-3.38) ng/mL Troponin I (0.00-0.120) ng/mL Total Protein (6.3-8.3) g/dL Albumin (3.5-5.0) g/dL Globulin (2.2-3.9) gm/dL Albumin/Globulin Ratio (1.0-2.1) Procalcitonin (0.19-0.49) NG/ML Arterial Blood Potassium 3.9 (3.6-5.2) mmol/L Urine Color (YELLOW) Urine Clarity (Clear) Urine pH (5.0-8.0) Ur Specific [place] (1.003-1.030) Urine Protein (NEGATIVE) mg/dL Urine Glucose (UA) (Normal) mg/dL Urine Ketones (NEGATIVE) mg/dL Urine Blood (NEGATIVE) Urine Nitrate (NEGATIVE) Urine Bilirubin (NEGATIVE) Urine Urobilinogen (0.2-1.0) mg/dL Ur Leukocyte Esterase (Negative) Rosio/uL Urine WBC (Auto) (0-5) /hpf Urine RBC (Auto) (0-3) /hpf Ur Squamous Epith Cells (0-5) /hpf Urine Bacteria (<OCC) Hyaline Casts (0-2) /lpf B-Hydroxybutyrate (0.02-0.27) mM 11/18/18 11/18/18 11/18/18 Range/Units 05:20 05:20 05:20 WBC 37.5 H* (4.8-10.8) K/uL RBC 3.68 L (3.80-5.20) Mil/uL Hgb 11.3 (11.0-16.0) g/dL Hct 34.3 (34.0-47.0) % MCV 93.2 D (81.0-99.0) fL MCH 30.7 (27.0-31.0) pg MCHC 32.9 L (33.0-37.0) g/dL RDW 13.1 (11.5-14.5) % Plt Count 96 L (130-400) K/uL MPV 10.4 (7.2-11.7) fL Neut % (Auto) 69.6 (50.0-75.0) % Lymph % (Auto) 0.7 L (20.0-40.0) % [place] % (Auto) 29.5 H (0.0-10.0) % Eos % (Auto) 0.0 (0.0-4.0) % Baso % (Auto) 0.2 (0.0-2.0) % Neut # (Auto) 26.0 H (1.8-7.0) K/uL Lymph # (Auto) 0.3 L (1.0-4.3) K/uL [place] # (Auto) 11.1 H (0.0-0.8) K/uL Eos # (Auto) 0.0 (0.0-0.7) K/uL Baso # (Auto) 0.1 (0.0-0.2) K/uL Neutrophils % (Manual) 39 L (50-75) % Band Neutrophils % 43 H* (0-2) % Lymphocytes % (Manual) 3 L (20-40) % Monocytes % (Manual) 15 H (0-10) % Platelet Estimate Decreased L (NORMAL) RBC Morphology Normal Puncture Site pCO2 (35-45) mm/Hg pO2 (80-100) mm/Hg HCO3 (21-28) mmol/L ABG pH (7.35-7.45) ABG Total CO2 (22-28) mmol/L ABG O2 Saturation (95-98) % ABG Base Excess (-2.0-3.0) mmol/L Peter Test ABG Potassium (3.6-5.2) mmol/L Glucose (65-105) mg/dl Lactate (0.7-2.1) mmol/L Liter Flow Crit Value Called To Crit Value Called By Crit Value Read Back Blood Gas Notified Time Sodium 139 (132-148) mmol/L Potassium 3.3 L (3.6-5.2) mmol/L Chloride 110 H (98-107) mmol/L Carbon Dioxide 23 (22-30) mmol/L Anion Gap 10 (10-20) BUN 17 (7-17) mg/dL Creatinine 1.0 (0.7-1.2) mg/dL Est GFR ( Amer) > 60 Est GFR (Non-Af Amer) 55 POC Glucose (mg/dL) (65-110) mg/dL Random Glucose 101 D (65-105) mg/dL Hemoglobin A1c 11.2 H D (4.2-6.5) % Calcium 8.8 (8.6-10.4) mg/dl Phosphorus 1.2 L (2.5-4.5) mg/dL Magnesium 1.3 L (1.6-2.3) mg/dL Total Bilirubin 0.5 (0.2-1.3) mg/dL AST 17 (14-36) U/L ALT 18 (9-52) U/L Alkaline Phosphatase 94 (38-126) U/L Total Creatine Kinase (30-135) U/L CK-MB (Mass) (0.0-3.38) ng/mL Troponin I (0.00-0.120) ng/mL Total Protein 6.1 L (6.3-8.3) g/dL Albumin 3.2 L D (3.5-5.0) g/dL Globulin 2.9 (2.2-3.9) gm/dL Albumin/Globulin Ratio 1.1 (1.0-2.1) Procalcitonin (0.19-0.49) NG/ML Arterial Blood Potassium (3.6-5.2) mmol/L Urine Color (YELLOW) Urine Clarity (Clear) Urine pH (5.0-8.0) Ur Specific [place] (1.003-1.030) Urine Protein (NEGATIVE) mg/dL Urine Glucose (UA) (Normal) mg/dL Urine Ketones (NEGATIVE) mg/dL Urine Blood (NEGATIVE) Urine Nitrate (NEGATIVE) Urine Bilirubin (NEGATIVE) Urine Urobilinogen (0.2-1.0) mg/dL Ur Leukocyte Esterase (Negative) Rosio/uL Urine WBC (Auto) (0-5) /hpf Urine RBC (Auto) (0-3) /hpf Ur Squamous Epith Cells (0-5) /hpf Urine Bacteria (<OCC) Hyaline Casts (0-2) /lpf B-Hydroxybutyrate (0.02-0.27) mM 11/18/18 11/17/18 11/17/18 Range/Units 03:56 23:32 22:59 WBC (4.8-10.8) K/uL RBC (3.80-5.20) Mil/uL Hgb (11.0-16.0) g/dL Hct (34.0-47.0) % MCV (81.0-99.0) fL MCH (27.0-31.0) pg MCHC (33.0-37.0) g/dL RDW (11.5-14.5) % Plt Count (130-400) K/uL MPV (7.2-11.7) fL Neut % (Auto) (50.0-75.0) % Lymph % (Auto) (20.0-40.0) % [place] % (Auto) (0.0-10.0) % Eos % (Auto) (0.0-4.0) % Baso % (Auto) (0.0-2.0) % Neut # (Auto) (1.8-7.0) K/uL Lymph # (Auto) (1.0-4.3) K/uL [place] # (Auto) (0.0-0.8) K/uL Eos # (Auto) (0.0-0.7) K/uL Baso # (Auto) (0.0-0.2) K/uL Neutrophils % (Manual) (50-75) % Band Neutrophils % (0-2) % Lymphocytes % (Manual) (20-40) % Monocytes % (Manual) (0-10) % Platelet Estimate (NORMAL) RBC Morphology Puncture Site pCO2 (35-45) mm/Hg pO2 (80-100) mm/Hg HCO3 (21-28) mmol/L ABG pH (7.35-7.45) ABG Total CO2 (22-28) mmol/L ABG O2 Saturation (95-98) % ABG Base Excess (-2.0-3.0) mmol/L Peter Test ABG Potassium (3.6-5.2) mmol/L Glucose (65-105) mg/dl Lactate (0.7-2.1) mmol/L Liter Flow Crit Value Called To Crit Value Called By Crit Value Read Back Blood Gas Notified Time Sodium (132-148) mmol/L Potassium (3.6-5.2) mmol/L Chloride (98-107) mmol/L Carbon Dioxide (22-30) mmol/L Anion Gap (10-20) BUN (7-17) mg/dL Creatinine (0.7-1.2) mg/dL Est GFR ( Amer) Est GFR (Non-Af Amer) POC Glucose (mg/dL) 155 H 154 H 179 H (65-110) mg/dL Random Glucose (65-105) mg/dL Hemoglobin A1c (4.2-6.5) % Calcium (8.6-10.4) mg/dl Phosphorus (2.5-4.5) mg/dL Magnesium (1.6-2.3) mg/dL Total Bilirubin (0.2-1.3) mg/dL AST (14-36) U/L ALT (9-52) U/L Alkaline Phosphatase (38-126) U/L Total Creatine Kinase (30-135) U/L CK-MB (Mass) (0.0-3.38) ng/mL Troponin I (0.00-0.120) ng/mL Total Protein (6.3-8.3) g/dL Albumin (3.5-5.0) g/dL Globulin (2.2-3.9) gm/dL Albumin/Globulin Ratio (1.0-2.1) Procalcitonin (0.19-0.49) NG/ML Arterial Blood Potassium (3.6-5.2) mmol/L Urine Color (YELLOW) Urine Clarity (Clear) Urine pH (5.0-8.0) Ur Specific [place] (1.003-1.030) Urine Protein (NEGATIVE) mg/dL Urine Glucose (UA) (Normal) mg/dL Urine Ketones (NEGATIVE) mg/dL Urine Blood (NEGATIVE) Urine Nitrate (NEGATIVE) Urine Bilirubin (NEGATIVE) Urine Urobilinogen (0.2-1.0) mg/dL Ur Leukocyte Esterase (Negative) Rosio/uL Urine WBC (Auto) (0-5) /hpf Urine RBC (Auto) (0-3) /hpf Ur Squamous Epith Cells (0-5) /hpf Urine Bacteria (<OCC) Hyaline Casts (0-2) /lpf B-Hydroxybutyrate (0.02-0.27) mM 11/17/18 11/17/18 11/17/18 Range/Units 22:36 22:12 21:22 WBC (4.8-10.8) K/uL RBC (3.80-5.20) Mil/uL Hgb (11.0-16.0) g/dL Hct (34.0-47.0) % MCV (81.0-99.0) fL MCH (27.0-31.0) pg MCHC (33.0-37.0) g/dL RDW (11.5-14.5) % Plt Count (130-400) K/uL MPV (7.2-11.7) fL Neut % (Auto) (50.0-75.0) % Lymph % (Auto) (20.0-40.0) % [place] % (Auto) (0.0-10.0) % Eos % (Auto) (0.0-4.0) % Baso % (Auto) (0.0-2.0) % Neut # (Auto) (1.8-7.0) K/uL Lymph # (Auto) (1.0-4.3) K/uL [place] # (Auto) (0.0-0.8) K/uL Eos # (Auto) (0.0-0.7) K/uL Baso # (Auto) (0.0-0.2) K/uL Neutrophils % (Manual) (50-75) % Band Neutrophils % (0-2) % Lymphocytes % (Manual) (20-40) % Monocytes % (Manual) (0-10) % Platelet Estimate (NORMAL) RBC Morphology Puncture Site pCO2 (35-45) mm/Hg pO2 (80-100) mm/Hg HCO3 (21-28) mmol/L ABG pH (7.35-7.45) ABG Total CO2 (22-28) mmol/L ABG O2 Saturation (95-98) % ABG Base Excess (-2.0-3.0) mmol/L Peter Test ABG Potassium (3.6-5.2) mmol/L Glucose (65-105) mg/dl Lactate (0.7-2.1) mmol/L Liter Flow Crit Value Called To Crit Value Called By Crit Value Read Back Blood Gas Notified Time Sodium 137 (132-148) mmol/L Potassium 3.2 L (3.6-5.2) mmol/L Chloride 108 H (98-107) mmol/L Carbon Dioxide 17 L (22-30) mmol/L Anion Gap 15 (10-20) BUN 18 H (7-17) mg/dL Creatinine 1.0 (0.7-1.2) mg/dL Est GFR ( Amer) > 60 Est GFR (Non-Af Amer) 55 POC Glucose (mg/dL) 217 H 252 H (65-110) mg/dL Random Glucose 184 H D (65-105) mg/dL Hemoglobin A1c (4.2-6.5) % Calcium 8.3 L (8.6-10.4) mg/dl Phosphorus (2.5-4.5) mg/dL Magnesium (1.6-2.3) mg/dL Total Bilirubin (0.2-1.3) mg/dL AST (14-36) U/L ALT (9-52) U/L Alkaline Phosphatase (38-126) U/L Total Creatine Kinase (30-135) U/L CK-MB (Mass) (0.0-3.38) ng/mL Troponin I (0.00-0.120) ng/mL Total Protein (6.3-8.3) g/dL Albumin (3.5-5.0) g/dL Globulin (2.2-3.9) gm/dL Albumin/Globulin Ratio (1.0-2.1) Procalcitonin (0.19-0.49) NG/ML Arterial Blood Potassium (3.6-5.2) mmol/L Urine Color (YELLOW) Urine Clarity (Clear) Urine pH (5.0-8.0) Ur Specific [place] (1.003-1.030) Urine Protein (NEGATIVE) mg/dL Urine Glucose (UA) (Normal) mg/dL Urine Ketones (NEGATIVE) mg/dL Urine Blood (NEGATIVE) Urine Nitrate (NEGATIVE) Urine Bilirubin (NEGATIVE) Urine Urobilinogen (0.2-1.0) mg/dL Ur Leukocyte Esterase (Negative) Rosio/uL Urine WBC (Auto) (0-5) /hpf Urine RBC (Auto) (0-3) /hpf Ur Squamous Epith Cells (0-5) /hpf Urine Bacteria (<OCC) Hyaline Casts (0-2) /lpf B-Hydroxybutyrate (0.02-0.27) mM 11/17/18 11/17/18 11/17/18 Range/Units 20:06 18:55 18:53 WBC (4.8-10.8) K/uL RBC (3.80-5.20) Mil/uL Hgb (11.0-16.0) g/dL Hct (34.0-47.0) % MCV (81.0-99.0) fL MCH (27.0-31.0) pg MCHC (33.0-37.0) g/dL RDW (11.5-14.5) % Plt Count (130-400) K/uL MPV (7.2-11.7) fL Neut % (Auto) (50.0-75.0) % Lymph % (Auto) (20.0-40.0) % Bonner % (Auto) (0.0-10.0) % Eos % (Auto) (0.0-4.0) % Baso % (Auto) (0.0-2.0) % Neut # (Auto) (1.8-7.0) K/uL Lymph # (Auto) (1.0-4.3) K/uL Bonner # (Auto) (0.0-0.8) K/uL Eos # (Auto) (0.0-0.7) K/uL Baso # (Auto) (0.0-0.2) K/uL Neutrophils % (Manual) (50-75) % Band Neutrophils % (0-2) % Lymphocytes % (Manual) (20-40) % Monocytes % (Manual) (0-10) % Platelet Estimate (NORMAL) RBC Morphology Puncture Site pCO2 (35-45) mm/Hg pO2 (80-100) mm/Hg HCO3 (21-28) mmol/L ABG pH (7.35-7.45) ABG Total CO2 (22-28) mmol/L ABG O2 Saturation (95-98) % ABG Base Excess (-2.0-3.0) mmol/L Peter Test ABG Potassium (3.6-5.2) mmol/L Glucose (65-105) mg/dl Lactate (0.7-2.1) mmol/L Liter Flow Crit Value Called To Crit Value Called By Crit Value Read Back Blood Gas Notified Time Sodium 137 (132-148) mmol/L Potassium 3.8 (3.6-5.2) mmol/L Chloride 102 (98-107) mmol/L Carbon Dioxide 9 L* D (22-30) mmol/L Anion Gap 29 H (10-20) BUN 20 H (7-17) mg/dL Creatinine 1.4 H (0.7-1.2) mg/dL Est GFR ( Amer) 45 Est GFR (Non-Af Amer) 38 POC Glucose (mg/dL) 296 H 440 H* (65-110) mg/dL Random Glucose 412 H* D (65-105) mg/dL Hemoglobin A1c (4.2-6.5) % Calcium 9.5 (8.6-10.4) mg/dl Phosphorus (2.5-4.5) mg/dL Magnesium (1.6-2.3) mg/dL Total Bilirubin (0.2-1.3) mg/dL AST (14-36) U/L ALT (9-52) U/L Alkaline Phosphatase (38-126) U/L Total Creatine Kinase (30-135) U/L CK-MB (Mass) (0.0-3.38) ng/mL Troponin I (0.00-0.120) ng/mL Total Protein (6.3-8.3) g/dL Albumin (3.5-5.0) g/dL Globulin (2.2-3.9) gm/dL Albumin/Globulin Ratio (1.0-2.1) Procalcitonin (0.19-0.49) NG/ML Arterial Blood Potassium (3.6-5.2) mmol/L Urine Color (YELLOW) Urine Clarity (Clear) Urine pH (5.0-8.0) Ur Specific [place] (1.003-1.030) Urine Protein (NEGATIVE) mg/dL Urine Glucose (UA) (Normal) mg/dL Urine Ketones (NEGATIVE) mg/dL Urine Blood (NEGATIVE) Urine Nitrate (NEGATIVE) Urine Bilirubin (NEGATIVE) Urine Urobilinogen (0.2-1.0) mg/dL Ur Leukocyte Esterase (Negative) Rosio/uL Urine WBC (Auto) (0-5) /hpf Urine RBC (Auto) (0-3) /hpf Ur Squamous Epith Cells (0-5) /hpf Urine Bacteria (<OCC) Hyaline Casts (0-2) /lpf B-Hydroxybutyrate (0.02-0.27) mM 11/17/18 11/17/18 11/17/18 Range/Units 17:55 17:44 16:47 WBC (4.8-10.8) K/uL RBC (3.80-5.20) Mil/uL Hgb (11.0-16.0) g/dL Hct (34.0-47.0) % MCV (81.0-99.0) fL MCH (27.0-31.0) pg MCHC (33.0-37.0) g/dL RDW (11.5-14.5) % Plt Count (130-400) K/uL MPV (7.2-11.7) fL Neut % (Auto) (50.0-75.0) % Lymph % (Auto) (20.0-40.0) % Bonner % (Auto) (0.0-10.0) % Eos % (Auto) (0.0-4.0) % Baso % (Auto) (0.0-2.0) % Neut # (Auto) (1.8-7.0) K/uL Lymph # (Auto) (1.0-4.3) K/uL [place]ner # (Auto) (0.0-0.8) K/uL Eos # (Auto) (0.0-0.7) K/uL Baso # (Auto) (0.0-0.2) K/uL Neutrophils % (Manual) (50-75) % Band Neutrophils % (0-2) % Lymphocytes % (Manual) (20-40) % Monocytes % (Manual) (0-10) % Platelet Estimate (NORMAL) RBC Morphology Puncture Site pCO2 (35-45) mm/Hg pO2 (80-100) mm/Hg HCO3 (21-28) mmol/L ABG pH (7.35-7.45) ABG Total CO2 (22-28) mmol/L ABG O2 Saturation (95-98) % ABG Base Excess (-2.0-3.0) mmol/L Peter Test ABG Potassium (3.6-5.2) mmol/L Glucose (65-105) mg/dl Lactate (0.7-2.1) mmol/L Liter Flow Crit Value Called To Crit Value Called By Crit Value Read Back Blood Gas Notified Time Sodium (132-148) mmol/L Potassium (3.6-5.2) mmol/L Chloride (98-107) mmol/L Carbon Dioxide (22-30) mmol/L Anion Gap (10-20) BUN (7-17) mg/dL Creatinine (0.7-1.2) mg/dL Est GFR ( Amer) Est GFR (Non-Af Amer) POC Glucose (mg/dL) 462 H* (65-110) mg/dL Random Glucose (65-105) mg/dL Hemoglobin A1c (4.2-6.5) % Calcium (8.6-10.4) mg/dl Phosphorus (2.5-4.5) mg/dL Magnesium (1.6-2.3) mg/dL Total Bilirubin (0.2-1.3) mg/dL AST (14-36) U/L ALT (9-52) U/L Alkaline Phosphatase (38-126) U/L Total Creatine Kinase 52 (30-135) U/L CK-MB (Mass) 2.17 (0.0-3.38) ng/mL Troponin I 0.0370 (0.00-0.120) ng/mL Total Protein (6.3-8.3) g/dL Albumin (3.5-5.0) g/dL Globulin (2.2-3.9) gm/dL Albumin/Globulin Ratio (1.0-2.1) Procalcitonin (0.19-0.49) NG/ML Arterial Blood Potassium (3.6-5.2) mmol/L Urine Color Yellow (YELLOW) Urine Clarity Clear (Clear) Urine pH 5.0 (5.0-8.0) Ur Specific [place] 1.017 (1.003-1.030) Urine Protein 2+ H (NEGATIVE) mg/dL Urine Glucose (UA) 3+ H (Normal) mg/dL Urine Ketones 2+ H (NEGATIVE) mg/dL Urine Blood 1+ H (NEGATIVE) Urine Nitrate Negative (NEGATIVE) Urine Bilirubin Negative (NEGATIVE) Urine Urobilinogen Normal (0.2-1.0) mg/dL Ur Leukocyte Esterase Neg (Negative) Rosio/uL Urine WBC (Auto) 1 (0-5) /hpf Urine RBC (Auto) 8 H (0-3) /hpf Ur Squamous Epith Cells < 1 (0-5) /hpf Urine Bacteria Rare (<OCC) Hyaline Casts 3-5 H (0-2) /lpf B-Hydroxybutyrate (0.02-0.27) mM 11/17/18 11/17/18 11/17/18 Range/Units 16:34 16:01 15:33 WBC (4.8-10.8) K/uL RBC (3.80-5.20) Mil/uL Hgb (11.0-16.0) g/dL Hct (34.0-47.0) % MCV (81.0-99.0) fL MCH (27.0-31.0) pg MCHC (33.0-37.0) g/dL RDW (11.5-14.5) % Plt Count (130-400) K/uL MPV (7.2-11.7) fL Neut % (Auto) 73.7 (50.0-75.0) % Lymph % (Auto) 1.0 L (20.0-40.0) % Bonner % (Auto) 25.0 H (0.0-10.0) % Eos % (Auto) 0.0 (0.0-4.0) % Baso % (Auto) 0.3 (0.0-2.0) % Neut # (Auto) 23.2 H (1.8-7.0) K/uL Lymph # (Auto) 0.3 L (1.0-4.3) K/uL Bonner # (Auto) 7.9 H (0.0-0.8) K/uL Eos # (Auto) 0.0 (0.0-0.7) K/uL Baso # (Auto) 0.1 (0.0-0.2) K/uL Neutrophils % (Manual) 58 (50-75) % Band Neutrophils % 15 H* (0-2) % Lymphocytes % (Manual) 1 L (20-40) % Monocytes % (Manual) 26 H (0-10) % Platelet Estimate Slightly decreased L (NORMAL) RBC Morphology Puncture Site pCO2 (35-45) mm/Hg pO2 (80-100) mm/Hg HCO3 (21-28) mmol/L ABG pH (7.35-7.45) ABG Total CO2 (22-28) mmol/L ABG O2 Saturation (95-98) % ABG Base Excess (-2.0-3.0) mmol/L Peter Test ABG Potassium (3.6-5.2) mmol/L Glucose (65-105) mg/dl Lactate (0.7-2.1) mmol/L Liter Flow Crit Value Called To Crit Value Called By Crit Value Read Back Blood Gas Notified Time Sodium 131 L (132-148) mmol/L Potassium 4.8 (3.6-5.2) mmol/L Chloride 93 L (98-107) mmol/L Carbon Dioxide 5 L* D (22-30) mmol/L Anion Gap 38 H (10-20) BUN 20 H (7-17) mg/dL Creatinine 1.6 H (0.7-1.2) mg/dL Est GFR ( Amer) 39 Est GFR (Non-Af Amer) 32 POC Glucose (mg/dL) > 500 H* (65-110) mg/dL Random Glucose 608 H* D (65-105) mg/dL Hemoglobin A1c (4.2-6.5) % Calcium 9.7 (8.6-10.4) mg/dl Phosphorus (2.5-4.5) mg/dL Magnesium (1.6-2.3) mg/dL Total Bilirubin 0.7 (0.2-1.3) mg/dL AST 23 (14-36) U/L ALT 11 (9-52) U/L Alkaline Phosphatase 128 H D (38-126) U/L Total Creatine Kinase (30-135) U/L CK-MB (Mass) (0.0-3.38) ng/mL Troponin I (0.00-0.120) ng/mL Total Protein 7.3 (6.3-8.3) g/dL Albumin 4.4 (3.5-5.0) g/dL Globulin 2.9 (2.2-3.9) gm/dL Albumin/Globulin Ratio 1.5 (1.0-2.1) Procalcitonin (0.19-0.49) NG/ML Arterial Blood Potassium (3.6-5.2) mmol/L Urine Color (YELLOW) Urine Clarity (Clear) Urine pH (5.0-8.0) Ur Specific [place] (1.003-1.030) Urine Protein (NEGATIVE) mg/dL Urine Glucose (UA) (Normal) mg/dL Urine Ketones (NEGATIVE) mg/dL Urine Blood (NEGATIVE) Urine Nitrate (NEGATIVE) Urine Bilirubin (NEGATIVE) Urine Urobilinogen (0.2-1.0) mg/dL Ur Leukocyte Esterase (Negative) Rosio/uL Urine WBC (Auto) (0-5) /hpf Urine RBC (Auto) (0-3) /hpf Ur Squamous Epith Cells (0-5) /hpf Urine Bacteria (<OCC) Hyaline Casts (0-2) /lpf B-Hydroxybutyrate 12.8 H (0.02-0.27) mM Laboratory Results - last 24 hr 11/17/18 11/17/18 11/17/18 15:33 16:01 16:34 WBC RBC Hgb Hct MCV MCH MCHC RDW Plt Count MPV Neut % (Auto) 73.7 Lymph % (Auto) 1.0 L [place] % (Auto) 25.0 H Eos % (Auto) 0.0 Baso % (Auto) 0.3 Neut # (Auto) 23.2 H Lymph # (Auto) 0.3 L [place] # (Auto) 7.9 H Eos # (Auto) 0.0 Baso # (Auto) 0.1 Neutrophils % (Manual) 58 Band Neutrophils % 15 H* Lymphocytes % (Manual) 1 L Monocytes % (Manual) 26 H Platelet Estimate Slightly decreased L RBC Morphology Puncture Site pCO2 pO2 HCO3 ABG pH ABG Total CO2 ABG O2 Saturation ABG Base Excess Peter Test ABG Potassium Glucose Lactate Liter Flow Crit Value Called To Crit Value Called By Crit Value Read Back Blood Gas Notified Time Sodium 131 L Potassium 4.8 Chloride 93 L Carbon Dioxide 5 L* D Anion Gap 38 H BUN 20 H Creatinine 1.6 H Est GFR ( Amer) 39 Est GFR (Non-Af Amer) 32 POC Glucose (mg/dL) > 500 H* Random Glucose 608 H* D Hemoglobin A1c Calcium 9.7 Phosphorus Magnesium Total Bilirubin 0.7 AST 23 ALT 11 Alkaline Phosphatase 128 H D Total Creatine Kinase CK-MB (Mass) Troponin I Total Protein 7.3 Albumin 4.4 Globulin 2.9 Albumin/Globulin Ratio 1.5 Procalcitonin Arterial Blood Potassium Urine Color Urine Clarity Urine pH Ur Specific [place] Urine Protein Urine Glucose (UA) Urine Ketones Urine Blood Urine Nitrate Urine Bilirubin Urine Urobilinogen Ur Leukocyte Esterase Urine WBC (Auto) Urine RBC (Auto) Ur Squamous Epith Cells Urine Bacteria Hyaline Casts B-Hydroxybutyrate 12.8 H 11/17/18 11/17/18 11/17/18 16:47 17:44 17:55 WBC RBC Hgb Hct MCV MCH MCHC RDW Plt Count MPV Neut % (Auto) Lymph % (Auto) [place] % (Auto) Eos % (Auto) Baso % (Auto) Neut # (Auto) Lymph # (Auto) [place] # (Auto) Eos # (Auto) Baso # (Auto) Neutrophils % (Manual) Band Neutrophils % Lymphocytes % (Manual) Monocytes % (Manual) Platelet Estimate RBC Morphology Puncture Site pCO2 pO2 HCO3 ABG pH ABG Total CO2 ABG O2 Saturation ABG Base Excess Peter Test ABG Potassium Glucose Lactate Liter Flow Crit Value Called To Crit Value Called By Crit Value Read Back Blood Gas Notified Time Sodium Potassium Chloride Carbon Dioxide Anion Gap BUN Creatinine Est GFR ( Amer) Est GFR (Non-Af Amer) POC Glucose (mg/dL) 462 H* Random Glucose Hemoglobin A1c Calcium Phosphorus Magnesium Total Bilirubin AST ALT Alkaline Phosphatase Total Creatine Kinase 52 CK-MB (Mass) 2.17 Troponin I 0.0370 Total Protein Albumin Globulin Albumin/Globulin Ratio Procalcitonin Arterial Blood Potassium Urine Color Yellow Urine Clarity Clear Urine pH 5.0 Ur Specific [place] 1.017 Urine Protein 2+ H Urine Glucose (UA) 3+ H Urine Ketones 2+ H Urine Blood 1+ H Urine Nitrate Negative Urine Bilirubin Negative Urine Urobilinogen Normal Ur Leukocyte Esterase Neg Urine WBC (Auto) 1 Urine RBC (Auto) 8 H Ur Squamous Epith Cells < 1 Urine Bacteria Rare Hyaline Casts 3-5 H B-Hydroxybutyrate 11/17/18 11/17/18 11/17/18 18:53 18:55 20:06 WBC RBC Hgb Hct MCV MCH MCHC RDW Plt Count MPV Neut % (Auto) Lymph % (Auto) [place] % (Auto) Eos % (Auto) Baso % (Auto) Neut # (Auto) Lymph # (Auto) [place] # (Auto) Eos # (Auto) Baso # (Auto) Neutrophils % (Manual) Band Neutrophils % Lymphocytes % (Manual) Monocytes % (Manual) Platelet Estimate RBC Morphology Puncture Site pCO2 pO2 HCO3 ABG pH ABG Total CO2 ABG O2 Saturation ABG Base Excess Peter Test ABG Potassium Glucose Lactate Liter Flow Crit Value Called To Crit Value Called By Crit Value Read Back Blood Gas Notified Time Sodium 137 Potassium 3.8 Chloride 102 Carbon Dioxide 9 L* D Anion Gap 29 H BUN 20 H Creatinine 1.4 H Est GFR ( Amer) 45 Est GFR (Non-Af Amer) 38 POC Glucose (mg/dL) 440 H* 296 H Random Glucose 412 H* D Hemoglobin A1c Calcium 9.5 Phosphorus Magnesium Total Bilirubin AST ALT Alkaline Phosphatase Total Creatine Kinase CK-MB (Mass) Troponin I Total Protein Albumin Globulin Albumin/Globulin Ratio Procalcitonin Arterial Blood Potassium Urine Color Urine Clarity Urine pH Ur Specific [place] Urine Protein Urine Glucose (UA) Urine Ketones Urine Blood Urine Nitrate Urine Bilirubin Urine Urobilinogen Ur Leukocyte Esterase Urine WBC (Auto) Urine RBC (Auto) Ur Squamous Epith Cells Urine Bacteria Hyaline Casts B-Hydroxybutyrate 11/17/18 11/17/18 11/17/18 21:22 22:12 22:36 WBC RBC Hgb Hct MCV MCH MCHC RDW Plt Count MPV Neut % (Auto) Lymph % (Auto) [place] % (Auto) Eos % (Auto) Baso % (Auto) Neut # (Auto) Lymph # (Auto) [place]ner # (Auto) Eos # (Auto) Baso # (Auto) Neutrophils % (Manual) Band Neutrophils % Lymphocytes % (Manual) Monocytes % (Manual) Platelet Estimate RBC Morphology Puncture Site pCO2 pO2 HCO3 ABG pH ABG Total CO2 ABG O2 Saturation ABG Base Excess Peter Test ABG Potassium Glucose Lactate Liter Flow Crit Value Called To Crit Value Called By Crit Value Read Back Blood Gas Notified Time Sodium 137 Potassium 3.2 L Chloride 108 H Carbon Dioxide 17 L Anion Gap 15 BUN 18 H Creatinine 1.0 Est GFR ( Amer) > 60 Est GFR (Non-Af Amer) 55 POC Glucose (mg/dL) 252 H 217 H Random Glucose 184 H D Hemoglobin A1c Calcium 8.3 L Phosphorus Magnesium Total Bilirubin AST ALT Alkaline Phosphatase Total Creatine Kinase CK-MB (Mass) Troponin I Total Protein Albumin Globulin Albumin/Globulin Ratio Procalcitonin Arterial Blood Potassium Urine Color Urine Clarity Urine pH Ur Specific [place] Urine Protein Urine Glucose (UA) Urine Ketones Urine Blood Urine Nitrate Urine Bilirubin Urine Urobilinogen Ur Leukocyte Esterase Urine WBC (Auto) Urine RBC (Auto) Ur Squamous Epith Cells Urine Bacteria Hyaline Casts B-Hydroxybutyrate 11/17/18 11/17/18 11/18/18 22:59 23:32 03:56 WBC RBC Hgb Hct MCV MCH MCHC RDW Plt Count MPV Neut % (Auto) Lymph % (Auto) [place] % (Auto) Eos % (Auto) Baso % (Auto) Neut # (Auto) Lymph # (Auto) [place]ner # (Auto) Eos # (Auto) Baso # (Auto) Neutrophils % (Manual) Band Neutrophils % Lymphocytes % (Manual) Monocytes % (Manual) Platelet Estimate RBC Morphology Puncture Site pCO2 pO2 HCO3 ABG pH ABG Total CO2 ABG O2 Saturation ABG Base Excess Peter Test ABG Potassium Glucose Lactate Liter Flow Crit Value Called To Crit Value Called By Crit Value Read Back Blood Gas Notified Time Sodium Potassium Chloride Carbon Dioxide Anion Gap BUN Creatinine Est GFR ( Amer) Est GFR (Non-Af Amer) POC Glucose (mg/dL) 179 H 154 H 155 H Random Glucose Hemoglobin A1c Calcium Phosphorus Magnesium Total Bilirubin AST ALT Alkaline Phosphatase Total Creatine Kinase CK-MB (Mass) Troponin I Total Protein Albumin Globulin Albumin/Globulin Ratio Procalcitonin Arterial Blood Potassium Urine Color Urine Clarity Urine pH Ur Specific [place] Urine Protein Urine Glucose (UA) Urine Ketones Urine Blood Urine Nitrate Urine Bilirubin Urine Urobilinogen Ur Leukocyte Esterase Urine WBC (Auto) Urine RBC (Auto) Ur Squamous Epith Cells Urine Bacteria Hyaline Casts B-Hydroxybutyrate 11/18/18 11/18/18 11/18/18 05:20 05:20 05:20 WBC 37.5 H* RBC 3.68 L Hgb 11.3 Hct 34.3 MCV 93.2 D MCH 30.7 MCHC 32.9 L RDW 13.1 Plt Count 96 L MPV 10.4 Neut % (Auto) 69.6 Lymph % (Auto) 0.7 L [place] % (Auto) 29.5 H Eos % (Auto) 0.0 Baso % (Auto) 0.2 Neut # (Auto) 26.0 H Lymph # (Auto) 0.3 L [place] # (Auto) 11.1 H Eos # (Auto) 0.0 Baso # (Auto) 0.1 Neutrophils % (Manual) 39 L Band Neutrophils % 43 H* Lymphocytes % (Manual) 3 L Monocytes % (Manual) 15 H Platelet Estimate Decreased L RBC Morphology Normal Puncture Site pCO2 pO2 HCO3 ABG pH ABG Total CO2 ABG O2 Saturation ABG Base Excess Peter Test ABG Potassium Glucose Lactate Liter Flow Crit Value Called To Crit Value Called By Crit Value Read Back Blood Gas Notified Time Sodium 139 Potassium 3.3 L Chloride 110 H Carbon Dioxide 23 Anion Gap 10 BUN 17 Creatinine 1.0 Est GFR ( Amer) > 60 Est GFR (Non-Af Amer) 55 POC Glucose (mg/dL) Random Glucose 101 D Hemoglobin A1c 11.2 H D Calcium 8.8 Phosphorus 1.2 L Magnesium 1.3 L Total Bilirubin 0.5 AST 17 ALT 18 Alkaline Phosphatase 94 Total Creatine Kinase CK-MB (Mass) Troponin I Total Protein 6.1 L Albumin 3.2 L D Globulin 2.9 Albumin/Globulin Ratio 1.1 Procalcitonin Arterial Blood Potassium Urine Color Urine Clarity Urine pH Ur Specific [place] Urine Protein Urine Glucose (UA) Urine Ketones Urine Blood Urine Nitrate Urine Bilirubin Urine Urobilinogen Ur Leukocyte Esterase Urine WBC (Auto) Urine RBC (Auto) Ur Squamous Epith Cells Urine Bacteria Hyaline Casts B-Hydroxybutyrate 11/18/18 11/18/18 11/18/18 07:48 11:08 11:29 WBC RBC Hgb Hct MCV MCH MCHC RDW Plt Count MPV Neut % (Auto) Lymph % (Auto) [place] % (Auto) Eos % (Auto) Baso % (Auto) Neut # (Auto) Lymph # (Auto) [place] # (Auto) Eos # (Auto) Baso # (Auto) Neutrophils % (Manual) Band Neutrophils % Lymphocytes % (Manual) Monocytes % (Manual) Platelet Estimate RBC Morphology Puncture Site Lb pCO2 36 pO2 82 HCO3 21.8 ABG pH 7.37 ABG Total CO2 21.9 L ABG O2 Saturation 98.4 H ABG Base Excess -3.9 L Peter Test Na ABG Potassium 3.9 Glucose 116 H Lactate 1.2 Liter Flow 3.0 Crit Value Called To Dr wesley Crit Value Called By Nathanael vargas right of way manager Crit Value Read Back Y Blood Gas Notified Time 1111 Sodium 138.0 Potassium Chloride 111.0 H Carbon Dioxide Anion Gap BUN Creatinine Est GFR ( Amer) Est GFR (Non-Af Amer) POC Glucose (mg/dL) 89 167 H Random Glucose Hemoglobin A1c Calcium Phosphorus Magnesium Total Bilirubin AST ALT Alkaline Phosphatase Total Creatine Kinase CK-MB (Mass) Troponin I Total Protein Albumin Globulin Albumin/Globulin Ratio Procalcitonin Arterial Blood Potassium 3.9 Urine Color Urine Clarity Urine pH Ur Specific [place] Urine Protein Urine Glucose (UA) Urine Ketones Urine Blood Urine Nitrate Urine Bilirubin Urine Urobilinogen Ur Leukocyte Esterase Urine WBC (Auto) Urine RBC (Auto) Ur Squamous Epith Cells Urine Bacteria Hyaline Casts B-Hydroxybutyrate 11/18/18 11/18/18 11/18/18 11:51 11:51 16:01 WBC RBC Hgb Hct MCV MCH MCHC RDW Plt Count MPV Neut % (Auto) Lymph % (Auto) [place] % (Auto) Eos % (Auto) Baso % (Auto) Neut # (Auto) Lymph # (Auto) [place] # (Auto) Eos # (Auto) Baso # (Auto) Neutrophils % (Manual) Band Neutrophils % Lymphocytes % (Manual) Monocytes % (Manual) Platelet Estimate RBC Morphology Puncture Site pCO2 pO2 HCO3 ABG pH ABG Total CO2 ABG O2 Saturation ABG Base Excess Peter Test ABG Potassium Glucose Lactate Liter Flow Crit Value Called To Crit Value Called By Crit Value Read Back Blood Gas Notified Time Sodium 135 Potassium 4.0 Chloride 108 H Carbon Dioxide 21 L Anion Gap 11 BUN 18 H Creatinine 0.9 Est GFR ( Amer) > 60 Est GFR (Non-Af Amer) > 60 POC Glucose (mg/dL) 244 H Random Glucose 191 H D Hemoglobin A1c Calcium 8.5 L Phosphorus Magnesium Total Bilirubin AST ALT Alkaline Phosphatase Total Creatine Kinase CK-MB (Mass) Troponin I Total Protein Albumin Globulin Albumin/Globulin Ratio Procalcitonin 9.02 H Arterial Blood Potassium Urine Color Urine Clarity Urine pH Ur Specific [place] Urine Protein Urine Glucose (UA) Urine Ketones Urine Blood Urine Nitrate Urine Bilirubin Urine Urobilinogen Ur Leukocyte Esterase Urine WBC (Auto) Urine RBC (Auto) Ur Squamous Epith Cells Urine Bacteria Hyaline Casts B-Hydroxybutyrate 0.37 H Radiology Impressions: Radiology Impressions Chest X-Ray 11/17/18 15:32 IMPRESSION: No interval acute cardiopulmonary disease appreciated. Critical Care Progress Note - Nutrition Nutrition: Nutrition Category Date Time Status Liquid Diet [DIET] Diets 11/18/18 Breakfast Active Attending/Attestation - Attestation I have personally seen and examined this patient.: Yes I have fully participated in the care of the patient.: Yes I have reviewed all pertinent clinical information: Yes Notes (Text): 11/18/18 16:42 Patient seen and examined in the intensive care unit. Patient is off insulin drip with normal anion gap Started on IV antibiotics for elevated white count and bandemia Infectious disease consult Pancultures Stable for transfer to floor
[2018-11-18] MEDS ORDERED: Magnesium Sulfate 1 gm in D5W 1 GM/100 ML BAG IVPB ONE (11:00)
[2018-11-18 11:11] LABS: ARTERIAL BLOOD GAS HCO3 21.8 mmol/L (21-28); ARTERIAL BLOOD GAS O2 SAT 98.4 % (95-98); ARTERIAL BLOOD GAS PCO2 36 mm/Hg (35-45); ARTERIAL BLOOD GAS PH 7.37 (7.35-7.45); ARTERIAL BLOOD GAS PO2 82 mm/Hg (80-100); ARTERIAL BLOOD GAS TCO2 21.9 mmol/L (22-28)
--- NOTE | 2018-11-18 11:49 | CP.PCM.CON ---
History of Present Illness - History of Present Illness History of Present Illness: INFECTIOUS DISEASE CONSULT; REASON FOR CONSULT; DKA/SEPSIS AND LEUKOCYTOSIS. HPI: 68-year-old female with history off insulin-dependent diabetes mellitus, anxiety problems, CAD, hypertension was admitted to ICU on 11/17/18 in DKA with blood sugars off more than 600 complaining off nausea , vomiting at home with abdominal pains and generalized body aches for past one day. Patient also admits that she has missed her Lantus daily dose for some time. Patient denies any cough, shortness of breath or chest pain. Denies any headache, sinus problem or recent upper respiratory tract infection. Infectious disease consultation requested by PMD, for sepsis and also that patient is allergic to penicillin for appropriate therapy. PATIENT DENIES ANY RECENT TRAVEL. DENIES ANY RECENT CONTACT WITH ANY SICK PATIENT ED course: pepcid 20 mg IV, 10 units insulin regular IV, zofran, NaCl 250 ml/hr, labs, UA, EKG (sinus tachycardia), CXR Primary care dr: Dr. Ruth Ann Calderón ([place]?) PMH: Anxiety, Arthritis, Asthma, Bipolar Disorder, Depression, Diabetes, Gastritis, HTN, Hypercholesterolemia, Osteoporosis, sciatica, Paranoia, Schizophrenia Denies: Crohn's Disease, Diverticulitis, Gall Bladder Disease, Hepatitis, HIV, Pancreatitis, Chronic Kidney Disease, Seizures, Sexually Transmitted Disease Surgical History: Appendectomy, Coronary Stent (PCI of the LAD with stent insertion ( Xience) in 2007 in [place].) - [facility] Procedures EXCIS DEBRIDE OF WOUND, INFECT, OR BURN (02/06/15) EXCISION OF SIGMOID COLON, ENDO, DIAGN (06/15/18) EXCISION OF STOMACH, ENDO, DIAGN (06/15/18) GROUP PSYCHOTHERAPY (05/18/18) INDIVIDUAL PSYCHOTHERAPY, SUPPORTIVE (05/18/18) INTRODUCTION OF SERUM/TOX/VACCINE INTO MUSCLE, PERC APPROACH (07/01/17) VACCINATION NEC (02/06/15) Family History: States: Unknown Family Hx - Social History Hx Tobacco Use: No Hx Alcohol Use: No Hx Substance Use: No - Immunization History Hx Tetanus Toxoid Vaccination: Yes Hx Influenza Vaccination: Yes Hx Pneumococcal Vaccination: Yes ALLERGY; PCN-PATIENT DOES NOT REMEMBER, STATES HER MOTHER TOLD HER THAT SHE HAD PENICILLIN ALLERGY A CHILD. IMMUNIZATION; NOT SURE/. Review of Systems - Constitutional Constitutional: Lethargy, Weakness. absent: Chills, Fever - EENT Eyes: absent: Change in Vision, Floaters, Photophobia Nose/Mouth/Throat: Dry Mouth. absent: Mouth Lesions - Cardiovascular Cardiovascular: absent: Chest Pain, Dyspnea - Respiratory Respiratory: absent: Cough - Gastrointestinal Gastrointestinal: Abdominal Pain, Nausea, Vomiting. absent: Constipation, Diarrhea, Odynophagia - Genitourinary Genitourinary: absent: Dysuria, Urinary Hesitance - Reproductive: Female Reproductive:Female: Post Menopausal - Musculoskeletal Musculoskeletal: Back Pain, Myalgias, Radiating Pain into Limb - Neurological Neurological: Dizziness - Psychiatric Psychiatric: Anxiety, Depression, Paranoia - Hematologic/Lymphatic Hematologic: As Per HPI. absent: Easy Bleeding, Easy Bruising Past Patient History - Infectious Disease Hx of Infectious Diseases: None - Tetanus Immunizations Tetanus Immunization: Unknown - Past Medical History & Family History Past Medical History?: Yes - Past Social History Smoking Status: Former Smoker - CARDIAC Hx Cardiac Disorders: Yes Hx Hypercholesterolemia: Yes Hx Hypertension: Yes - PULMONARY Hx Respiratory Disorders: Yes Hx Asthma: Yes - NEUROLOGICAL Hx Neurological Disorder: No Hx Seizures: No - HEENT Hx HEENT Problems: Yes Other/Comment: wear eyeglasses - RENAL Hx Chronic Kidney Disease: No - ENDOCRINE/METABOLIC Hx Endocrine Disorders: Yes Hx Diabetes Mellitus Type 2: Yes - HEMATOLOGICAL/ONCOLOGICAL Hx Blood Disorders: No Hx Human Immunodeficiency Virus (HIV): No - INTEGUMENTARY Hx Dermatological Problems: Yes Other/Comment: Hx skin rash - MUSCULOSKELETAL/RHEUMATOLOGICAL Hx Musculoskeletal Disorders: Yes Hx Arthritis: Yes Hx Falls: No Hx Osteoporosis: Yes - GASTROINTESTINAL Hx Gastrointestinal Disorders: Yes Hx Crohn's Disease: No Hx Diverticulitis: No Hx Gall Bladder Disease: No Hx Gastritis: Yes Hx Pancreatitis: No - GENITOURINARY/GYNECOLOGICAL Hx Genitourinary Disorders: No Hx Sexually Transmitted Disorders: No - PSYCHIATRIC Hx Psychophysiologic Disorder: Yes Hx Anxiety: Yes Hx Bipolar Disorder: Yes Hx Depression: Yes Hx Paranoia: Yes Hx Schizophrenia: Yes Hx Substance Use: No - SURGICAL HISTORY Hx Surgeries: Yes Hx Appendectomy: Yes Hx Coronary Stent: Yes (PCI of the LAD with stent insertion ( Xience) in 2007 in [place].) - ANESTHESIA Hx Anesthesia: Yes Hx Anesthesia Reactions: No Hx Malignant Hyperthermia: No Has any member of the family had a problem w/ anesthesia?: No Meds Allergies/Adverse Reactions: Allergies Allergy/AdvReac Type Severity Reaction Status Date / Time Penicillins Allergy RASH Verified 06/15/18 14:35 - Medications Medications: Current Medications Dextrose (Dextrose 50% Inj) 0 ml IV STAT PRN; Protocol PRN Reason: Hypoglycemia Protocol Dextrose (Glutose 15) 0 gm PO ONCE PRN; Protocol PRN Reason: Hypoglycemia Protocol Famotidine (Pepcid) 20 mg IVP DAILY PIERO Last Admin: 11/18/18 09:29 Dose: 20 mg Glucagon (Glucagen Diagnostic Kit) 0 mg IM STAT PRN; Protocol PRN Reason: Hypoglycemia Protocol Potassium Chloride 20 meq/ (Sodium Chloride) 1,010 mls @ 150 mls/hr IV .Q6H44M PIERO Last Admin: 11/18/18 09:27 Dose: 150 mls/hr Dextrose (Dextrose 5% In Water 1000 Ml) 1,000 mls @ 0 mls/hr IV .Q0M PRN; Protocol PRN Reason: Hypoglycemia Protocol Potassium Phosphate 15 mmole/ (Sodium Chloride) 255 mls @ 42.5 mls/hr IVPB Q6H PIERO Stop: 11/18/18 19:59 Last Admin: 11/18/18 08:40 Dose: 42.5 mls/hr Vancomycin HCl 1 gm/ Sodium (Chloride) 250 mls @ 166.7 mls/hr IVPB Q24H PIERO; Protocol Ciprofloxacin (Cipro 400mg/200ml Dsw) 400 mg in 200 mls @ 133 mls/hr IVPB Q12H PIERO; Protocol Insulin Aspart (Novolog) 0 unit SC ACHS PIERO; Protocol Ondansetron HCl (Zofran Inj) 4 mg IVP Q4 PRN PRN Reason: Nausea/Vomiting Last Admin: 11/17/18 20:47 Dose: 4 mg Oxycodone/Acetaminophen (Percocet 5/325 Mg Tab) 1 tab PO Q6H PRN PRN Reason: Pain, severe (8-10) Stop: 11/20/18 20:30 Last Admin: 11/18/18 08:52 Dose: 1 tab Physical Exam - Constitutional Appears: No Acute Distress - Head Exam Head Exam: NORMAL INSPECTION - Eye Exam Eye Exam: EOMI, PERRL - ENT Exam ENT Exam: Mucous Membranes Dry, Normal Oropharynx - Neck Exam Neck exam: Positive for: Normal Inspection. Negative for: Meningismus - Respiratory Exam Respiratory Exam: Decreased Breath Sounds, NORMAL BREATHING PATTERN - Cardiovascular Exam Cardiovascular Exam: Tachycardia, REGULAR RHYTHM, +S1, +S2 - GI/Abdominal Exam GI & Abdominal Exam: Normal Bowel Sounds, Soft, Tenderness (EPIGASTRIC.). absent: Organomegaly - Extremities Exam Extremities exam: Positive for: pedal pulses present. Negative for: calf tenderness, pedal edema - Neurological Exam Neurological exam: Alert, CN II-XII Intact, Oriented x3, Reflexes Normal - Psychiatric Exam Psychiatric exam: Normal Mood - Skin Skin Exam: Normal Color, Warm Results - Vital Signs Recent Vital Signs: Last Vital Signs Temp 99.8 F H 11/18/18 04:00 Pulse 105 H 11/18/18 06:02 Resp 16 11/18/18 06:02 BP 127/55 L 11/18/18 06:02 Pulse Ox 95 11/18/18 06:02 - Labs Result Diagrams: 11/21/18 07:09 11/21/18 07:09 Labs: Laboratory Results - last 24 hr 11/17/18 11/17/18 11/17/18 14:00 15:33 16:01 WBC 31.5 H D RBC 4.15 Hgb 12.9 Hct 41.6 MCV 100.2 H D MCH 31.0 MCHC 30.9 L RDW 14.1 Plt Count 115 L D MPV 11.2 Neut % (Auto) 73.7 Lymph % (Auto) 1.0 L [place] % (Auto) 25.0 H Eos % (Auto) 0.0 Baso % (Auto) 0.3 Neut # (Auto) 23.2 H Lymph # (Auto) 0.3 L [place] # (Auto) 7.9 H Eos # (Auto) 0.0 Baso # (Auto) 0.1 Neutrophils % (Manual) 58 Band Neutrophils % 15 H* Lymphocytes % (Manual) 1 L Monocytes % (Manual) 26 H Platelet Estimate Slightly decreased L RBC Morphology Puncture Site pCO2 pO2 57 H HCO3 ABG pH ABG Total CO2 ABG O2 Saturation ABG Base Excess Peter Test ABG Potassium VBG pH 7.06 L* VBG pCO2 21 L VBG HCO3 6.5 VBG Total CO2 6.5 L VBG O2 Sat (Calc) 86.4 H VBG Base Excess -22.8 L VBG Potassium 4.4 Sodium 137.0 Chloride 100.0 Glucose 535 H* D Lactate 2.4 H Liter Flow Crit Value Called To Lucie l Crit Value Called By Ayleen luke Crit Value Read Back Y Blood Gas Notified Time 1603 Potassium Carbon Dioxide Anion Gap BUN Creatinine Est GFR ( Amer) Est GFR (Non-Af Amer) POC Glucose (mg/dL) > 500 H* Random Glucose Hemoglobin A1c Calcium Phosphorus Magnesium Total Bilirubin AST ALT Alkaline Phosphatase Total Creatine Kinase CK-MB (Mass) Troponin I Total Protein Albumin Globulin Albumin/Globulin Ratio Arterial Blood Potassium Venous Blood Potassium 4.4 Urine Color Urine Clarity Urine pH Ur Specific [place] Urine Protein Urine Glucose (UA) Urine Ketones Urine Blood Urine Nitrate Urine Bilirubin Urine Urobilinogen Ur Leukocyte Esterase Urine WBC (Auto) Urine RBC (Auto) Ur Squamous Epith Cells Urine Bacteria Hyaline Casts B-Hydroxybutyrate 11/17/18 11/17/18 11/17/18 16:34 16:47 17:44 WBC RBC Hgb Hct MCV MCH MCHC RDW Plt Count MPV Neut % (Auto) Lymph % (Auto) [place] % (Auto) Eos % (Auto) Baso % (Auto) Neut # (Auto) Lymph # (Auto) [place] # (Auto) Eos # (Auto) Baso # (Auto) Neutrophils % (Manual) Band Neutrophils % Lymphocytes % (Manual) Monocytes % (Manual) Platelet Estimate RBC Morphology Puncture Site pCO2 pO2 HCO3 ABG pH ABG Total CO2 ABG O2 Saturation ABG Base Excess Peter Test ABG Potassium VBG pH VBG pCO2 VBG HCO3 VBG Total CO2 VBG O2 Sat (Calc) VBG Base Excess VBG Potassium Sodium 131 L Chloride 93 L Glucose Lactate Liter Flow Crit Value Called To Crit Value Called By Crit Value Read Back Blood Gas Notified Time Potassium 4.8 Carbon Dioxide 5 L* D Anion Gap 38 H BUN 20 H Creatinine 1.6 H Est GFR ( Amer) 39 Est GFR (Non-Af Amer) 32 POC Glucose (mg/dL) 462 H* Random Glucose 608 H* D Hemoglobin A1c Calcium 9.7 Phosphorus Magnesium Total Bilirubin 0.7 AST 23 ALT 11 Alkaline Phosphatase 128 H D Total Creatine Kinase CK-MB (Mass) Troponin I Total Protein 7.3 Albumin 4.4 Globulin 2.9 Albumin/Globulin Ratio 1.5 Arterial Blood Potassium Venous Blood Potassium Urine Color Yellow Urine Clarity Clear Urine pH 5.0 Ur Specific Jackson 1.017 Urine Protein 2+ H Urine Glucose (UA) 3+ H Urine Ketones 2+ H Urine Blood 1+ H Urine Nitrate Negative Urine Bilirubin Negative Urine Urobilinogen Normal Ur Leukocyte Esterase Neg Urine WBC (Auto) 1 Urine RBC (Auto) 8 H Ur Squamous Epith Cells < 1 Urine Bacteria Rare Hyaline Casts 3-5 H B-Hydroxybutyrate 12.8 H 11/17/18 11/17/18 11/17/18 17:55 18:53 18:55 WBC RBC Hgb Hct MCV MCH MCHC RDW Plt Count MPV Neut % (Auto) Lymph % (Auto) [place] % (Auto) Eos % (Auto) Baso % (Auto) Neut # (Auto) Lymph # (Auto) [place] # (Auto) Eos # (Auto) Baso # (Auto) Neutrophils % (Manual) Band Neutrophils % Lymphocytes % (Manual) Monocytes % (Manual) Platelet Estimate RBC Morphology Puncture Site pCO2 pO2 HCO3 ABG pH ABG Total CO2 ABG O2 Saturation ABG Base Excess Peter Test ABG Potassium VBG pH VBG pCO2 VBG HCO3 VBG Total CO2 VBG O2 Sat (Calc) VBG Base Excess VBG Potassium Sodium 137 Chloride 102 Glucose Lactate Liter Flow Crit Value Called To Crit Value Called By Crit Value Read Back Blood Gas Notified Time Potassium 3.8 Carbon Dioxide 9 L* D Anion Gap 29 H BUN 20 H Creatinine 1.4 H Est GFR ( Amer) 45 Est GFR (Non-Af Amer) 38 POC Glucose (mg/dL) 440 H* Random Glucose 412 H* D Hemoglobin A1c Calcium 9.5 Phosphorus Magnesium Total Bilirubin AST ALT Alkaline Phosphatase Total Creatine Kinase 52 CK-MB (Mass) 2.17 Troponin I 0.0370 Total Protein Albumin Globulin Albumin/Globulin Ratio Arterial Blood Potassium Venous Blood Potassium Urine Color Urine Clarity Urine pH Ur Specific [place] Urine Protein Urine Glucose (UA) Urine Ketones Urine Blood Urine Nitrate Urine Bilirubin Urine Urobilinogen Ur Leukocyte Esterase Urine WBC (Auto) Urine RBC (Auto) Ur Squamous Epith Cells Urine Bacteria Hyaline Casts B-Hydroxybutyrate 11/17/18 11/17/18 11/17/18 20:06 21:22 22:12 WBC RBC Hgb Hct MCV MCH MCHC RDW Plt Count MPV Neut % (Auto) Lymph % (Auto) [place] % (Auto) Eos % (Auto) Baso % (Auto) Neut # (Auto) Lymph # (Auto) [place] # (Auto) Eos # (Auto) Baso # (Auto) Neutrophils % (Manual) Band Neutrophils % Lymphocytes % (Manual) Monocytes % (Manual) Platelet Estimate RBC Morphology Puncture Site pCO2 pO2 HCO3 ABG pH ABG Total CO2 ABG O2 Saturation ABG Base Excess Peter Test ABG Potassium VBG pH VBG pCO2 VBG HCO3 VBG Total CO2 VBG O2 Sat (Calc) VBG Base Excess VBG Potassium Sodium Chloride Glucose Lactate Liter Flow Crit Value Called To Crit Value Called By Crit Value Read Back Blood Gas Notified Time Potassium Carbon Dioxide Anion Gap BUN Creatinine Est GFR ( Amer) Est GFR (Non-Af Amer) POC Glucose (mg/dL) 296 H 252 H 217 H Random Glucose Hemoglobin A1c Calcium Phosphorus Magnesium Total Bilirubin AST ALT Alkaline Phosphatase Total Creatine Kinase CK-MB (Mass) Troponin I Total Protein Albumin Globulin Albumin/Globulin Ratio Arterial Blood Potassium Venous Blood Potassium Urine Color Urine Clarity Urine pH Ur Specific [place] Urine Protein Urine Glucose (UA) Urine Ketones Urine Blood Urine Nitrate Urine Bilirubin Urine Urobilinogen Ur Leukocyte Esterase Urine WBC (Auto) Urine RBC (Auto) Ur Squamous Epith Cells Urine Bacteria Hyaline Casts B-Hydroxybutyrate 11/17/18 11/17/18 11/17/18 22:36 22:59 23:32 WBC RBC Hgb Hct MCV MCH MCHC RDW Plt Count MPV Neut % (Auto) Lymph % (Auto) [place] % (Auto) Eos % (Auto) Baso % (Auto) Neut # (Auto) Lymph # (Auto) [place] # (Auto) Eos # (Auto) Baso # (Auto) Neutrophils % (Manual) Band Neutrophils % Lymphocytes % (Manual) Monocytes % (Manual) Platelet Estimate RBC Morphology Puncture Site pCO2 pO2 HCO3 ABG pH ABG Total CO2 ABG O2 Saturation ABG Base Excess Peter Test ABG Potassium VBG pH VBG pCO2 VBG HCO3 VBG Total CO2 VBG O2 Sat (Calc) VBG Base Excess VBG Potassium Sodium 137 Chloride 108 H Glucose Lactate Liter Flow Crit Value Called To Crit Value Called By Crit Value Read Back Blood Gas Notified Time Potassium 3.2 L Carbon Dioxide 17 L Anion Gap 15 BUN 18 H Creatinine 1.0 Est GFR ( Amer) > 60 Est GFR (Non-Af Amer) 55 POC Glucose (mg/dL) 179 H 154 H Random Glucose 184 H D Hemoglobin A1c Calcium 8.3 L Phosphorus Magnesium Total Bilirubin AST ALT Alkaline Phosphatase Total Creatine Kinase CK-MB (Mass) Troponin I Total Protein Albumin Globulin Albumin/Globulin Ratio Arterial Blood Potassium Venous Blood Potassium Urine Color Urine Clarity Urine pH Ur Specific [place] Urine Protein Urine Glucose (UA) Urine Ketones Urine Blood Urine Nitrate Urine Bilirubin Urine Urobilinogen Ur Leukocyte Esterase Urine WBC (Auto) Urine RBC (Auto) Ur Squamous Epith Cells Urine Bacteria Hyaline Casts B-Hydroxybutyrate 11/18/18 11/18/18 11/18/18 03:56 05:20 05:20 WBC 37.5 H* RBC 3.68 L Hgb 11.3 Hct 34.3 MCV 93.2 D MCH 30.7 MCHC 32.9 L RDW 13.1 Plt Count 96 L MPV 10.4 Neut % (Auto) 69.6 Lymph % (Auto) 0.7 L [place] % (Auto) 29.5 H Eos % (Auto) 0.0 Baso % (Auto) 0.2 Neut # (Auto) 26.0 H Lymph # (Auto) 0.3 L [place] # (Auto) 11.1 H Eos # (Auto) 0.0 Baso # (Auto) 0.1 Neutrophils % (Manual) 39 L Band Neutrophils % 43 H* Lymphocytes % (Manual) 3 L Monocytes % (Manual) 15 H Platelet Estimate Decreased L RBC Morphology Normal Puncture Site pCO2 pO2 HCO3 ABG pH ABG Total CO2 ABG O2 Saturation ABG Base Excess Peter Test ABG Potassium VBG pH VBG pCO2 VBG HCO3 VBG Total CO2 VBG O2 Sat (Calc) VBG Base Excess VBG Potassium Sodium Chloride Glucose Lactate Liter Flow Crit Value Called To Crit Value Called By Crit Value Read Back Blood Gas Notified Time Potassium Carbon Dioxide Anion Gap BUN Creatinine Est GFR ( Amer) Est GFR (Non-Af Amer) POC Glucose (mg/dL) 155 H Random Glucose Hemoglobin A1c 11.2 H D Calcium Phosphorus Magnesium Total Bilirubin AST ALT Alkaline Phosphatase Total Creatine Kinase CK-MB (Mass) Troponin I Total Protein Albumin Globulin Albumin/Globulin Ratio Arterial Blood Potassium Venous Blood Potassium Urine Color Urine Clarity Urine pH Ur Specific [place] Urine Protein Urine Glucose (UA) Urine Ketones Urine Blood Urine Nitrate Urine Bilirubin Urine Urobilinogen Ur Leukocyte Esterase Urine WBC (Auto) Urine RBC (Auto) Ur Squamous Epith Cells Urine Bacteria Hyaline Casts B-Hydroxybutyrate 11/18/18 11/18/18 11/18/18 05:20 07:48 11:08 WBC RBC Hgb Hct MCV MCH MCHC RDW Plt Count MPV Neut % (Auto) Lymph % (Auto) [place] % (Auto) Eos % (Auto) Baso % (Auto) Neut # (Auto) Lymph # (Auto) [place] # (Auto) Eos # (Auto) Baso # (Auto) Neutrophils % (Manual) Band Neutrophils % Lymphocytes % (Manual) Monocytes % (Manual) Platelet Estimate RBC Morphology Puncture Site Lb pCO2 36 pO2 82 HCO3 21.8 ABG pH 7.37 ABG Total CO2 21.9 L ABG O2 Saturation 98.4 H ABG Base Excess -3.9 L Peter Test Na ABG Potassium 3.9 VBG pH VBG pCO2 VBG HCO3 VBG Total CO2 VBG O2 Sat (Calc) VBG Base Excess VBG Potassium Sodium 139 138.0 Chloride 110 H 111.0 H Glucose 116 H Lactate 1.2 Liter Flow 3.0 Crit Value Called To Dr wesley Crit Value Called By Nathanael vargas acetylene torch operator Crit Value Read Back Y Blood Gas Notified Time 1111 Potassium 3.3 L Carbon Dioxide 23 Anion Gap 10 BUN 17 Creatinine 1.0 Est GFR ( Amer) > 60 Est GFR (Non-Af Amer) 55 POC Glucose (mg/dL) 89 Random Glucose 101 D Hemoglobin A1c Calcium 8.8 Phosphorus 1.2 L Magnesium 1.3 L Total Bilirubin 0.5 AST 17 ALT 18 Alkaline Phosphatase 94 Total Creatine Kinase CK-MB (Mass) Troponin I Total Protein 6.1 L Albumin 3.2 L D Globulin 2.9 Albumin/Globulin Ratio 1.1 Arterial Blood Potassium 3.9 Venous Blood Potassium Urine Color Urine Clarity Urine pH Ur Specific [place] Urine Protein Urine Glucose (UA) Urine Ketones Urine Blood Urine Nitrate Urine Bilirubin Urine Urobilinogen Ur Leukocyte Esterase Urine WBC (Auto) Urine RBC (Auto) Ur Squamous Epith Cells Urine Bacteria Hyaline Casts B-Hydroxybutyrate - Imaging and Cardiology Chest x-ray Status: Report reviewed by me (no active disease) Assessment & Plan (1) Sepsis syndrome Status: Acute (2) DKA (diabetic ketoacidoses) Status: Resolved (3) Abdominal pain Status: Acute (4) Insulin dependent diabetes mellitus Status: Chronic Priority: Low (5) Hypertension Status: Chronic - Assessment and Plan (Free Text) Plan: PLAN; PANCULTURES. CRP CONTINUE CIPRO 400 MG iv PIGGYBACK EVERY 12 HOURLY 11/18/18. START iv TYGACIL 100 MG iv PIGGYBACK LOADING DOSE TODAY STAT, F/U 50 MG EVERY 12 HOURLY. 11/18/18. DC IV VANCOMYCIN.PATIENT GOT 1 DOSE 11/18/18. FOLLOW-UP CULTURES TO ADJUST ANTIBIOTICS. CONSIDER CT OF THE ABDOMEN AND PELVIS,WITHOUT CONTRAST TO EVALUATE FOR ABDOMINAL PAIN OR COLLECTION. WILL FOLLOW WITH YOU AND MAKE FURTHER RECOMMENDATIONS NEEDED.
[2018-11-18 12:21] LABS: BLOOD UREA NITROGEN 18 mg/dL (7-17); CALCIUM 8.5 mg/dl (8.6-10.4); GFR NON-AFRICAN AMERICAN > 60
[2018-11-18] MEDS: Ciprofloxacin 400mg/200ml D5W 400 MG/200 ML BAG IVPB SCH (13:45)
--- NOTE | 2018-11-18 15:33 | CON ---
DATE: 11/18/2018 ENDOCRINOLOGY CONSULT LOCATION: ICU room 10. HISTORY OF PRESENT ILLNESS: This is a 68-year-old female with no history of type 2 insulin requiring diabetes presenting here with generalized body weakness and supervening marked hyperglycemic accelerations and is now being referred for diabetic evaluation and management. PAST MEDICAL HISTORY: History of type 2 insulin requiring diabetes currently on a combination of Lantus given as 30 units at bedtime with NovoLog also given as 14 units t.i.d. with meals, history of hypertension and dyslipidemia, history of coronary artery disease with previous coronary stent placement, history of generalized anxiety and depression with underlying paranoid schizophrenia with ongoing psychotropic medications as given, history of diffuse osteoarthritis and osteoporosis. She has also had multiple surgical procedures in the GI tract to include colonic resections and even upper abdominal resections as the exact nature is at this time. FAMILY HISTORY: Positive for diabetes and hypertension. SOCIAL HISTORY: The patient has supportive family. No known substance use. REVIEW OF SYSTEMS: Admits to generalized body weakness with easy fatigability and tiredness, also admits to progressive bouts of dizziness and lightheadedness with bifrontal headaches and visual blurring. No chest pain, but admits to progressive shortness of breath, initial at exertion and then at rest. Her oral intake has been variable and suboptimal with nausea, dyspepsia, and intractable vomiting episodes over the last 3 days, also admits to marked polyuria, nocturia, and polydipsia. PHYSICAL EXAMINATION: GENERAL: This is an average-built female in no apparent distress. VITAL SIGNS: Blood pressure 140/80, pulse of 100 beats per minute and regular, temperature 98, respirations 20. Height is 5 feet 6 inches, weight is 143 pounds. HEENT: Head normocephalic. Eyes: Anicteric with pink conjunctivae. Funduscopy not possible at this time. Ears, nose, and throat otherwise normal. NECK: Supple. Thyroid glands normal. There are no carotid bruits or any cervical adenopathy. CARDIOPULMONARY: Some adynamic precordium. S1 and S2 are rapid and regular. LUNGS: Clear to auscultation. ABDOMEN: Flat, soft with positive bowel sounds. EXTREMITIES: No peripheral edema. Pulses are +2 bilaterally. LABORATORY DATA: Chemistry: BUN of 20, sodium 131, potassium 4.8, chloride 93. Initial lab workup, CO2 is 5, glucose 608, and creatinine 1.6. The latest CO2 today this morning is 17. ASSESSMENT: This is a 68-year-old female with uncontrolled and decompensated type 2 insulin requiring diabetes presented here with diabetic ketoacidosis and dehydration with previous hyponatremia. She also has diabetic microvascular complications of retinopathy and polyneuropathy with macrovascular complications of coronary artery disease and peripheral arterial disease and vasculopathy. PLAN OF MANAGEMENT: We will continue the insulin drip infusion as given overnight and would safely switch over to a basal and bolus insulin regimen once the metabolic acidosis resolves and at least a CO2 above 18 to 20 with closure of the anion gap. We will continue the vigorous IV hydration as given and obtain serial chemistries accordingly. We will advance her diet if normal, vomiting happens overnight as noted, and then gradually switch her to more physiologic basal and bolus drug combination as indicated. We will obtain a lipid panel and lipase level and also baseline thyroid studies as ordered. We will follow. Elly Hannah MD
[2018-11-18] MEDS ORDERED: HYDROmorphone 1 mg/ml ISec IVP ONE (20:45)
--- NOTE | 2018-11-19 01:16 | CP.PCM.HP ---
History of Present Illness - History of Present Illness History of Present Illness: 68 years old female was brought o the ED at [facility] on 11/17/2018 complaining of a low back pain, nausea and vomiting for the past 3 days. She was found to be acidotic with a blood glucose > 600, a hyponatremia, and ketone in the urine, Known to have an IDDM, she admitted to miss her Lantus dose. She was given IV insulin drip, IVF, and IV antibiotics. She is known also to have a HPTN, a s/p CVA, a CAD with PCI of the LAD in 2007, a schizophrenia with paranoia, a severe osteoporosis with recent compression fracture of the L3, osteoarthritis of both knees and as/p CVA. Present on Admission - Present on Admission Any Indicators Present on Admission: No Review of Systems - Constitutional Constitutional: Anorexia, Weight Loss, Weakness - Gastrointestinal Gastrointestinal: Abdominal Pain, Nausea, Vomiting - Psychiatric Psychiatric: Hallucinations Past Patient History - Infectious Disease Hx of Infectious Diseases: None - Tetanus Immunizations Tetanus Immunization: Unknown - Past Medical History & Family History Past Medical History?: Yes - Past Social History Smoking Status: Former Smoker Alcohol: None Drugs: Denies Home Situation {Lives}: Alone - CARDIAC Hx Cardiac Disorders: Yes Hx Hypercholesterolemia: Yes Hx Hypertension: Yes - PULMONARY Hx Respiratory Disorders: Yes Hx Asthma: Yes - NEUROLOGICAL Hx Neurological Disorder: No Hx Seizures: No - HEENT Hx HEENT Problems: Yes Other/Comment: wear eyeglasses - RENAL Hx Chronic Kidney Disease: No - ENDOCRINE/METABOLIC Hx Endocrine Disorders: Yes Hx Diabetes Mellitus Type 2: Yes - HEMATOLOGICAL/ONCOLOGICAL Hx Blood Disorders: No Hx Human Immunodeficiency Virus (HIV): No - INTEGUMENTARY Hx Dermatological Problems: Yes Other/Comment: Hx skin rash - MUSCULOSKELETAL/RHEUMATOLOGICAL Hx Musculoskeletal Disorders: Yes Hx Arthritis: Yes Hx Falls: No Hx Osteoporosis: Yes - GASTROINTESTINAL Hx Gastrointestinal Disorders: Yes Hx Crohn's Disease: No Hx Diverticulitis: No Hx Gall Bladder Disease: No Hx Gastritis: Yes Hx Pancreatitis: No - GENITOURINARY/GYNECOLOGICAL Hx Genitourinary Disorders: No Hx Sexually Transmitted Disorders: No - PSYCHIATRIC Hx Psychophysiologic Disorder: Yes Hx Anxiety: Yes Hx Bipolar Disorder: Yes Hx Depression: Yes Hx Paranoia: Yes Hx Schizophrenia: Yes Hx Substance Use: No - SURGICAL HISTORY Hx Surgeries: Yes Hx Appendectomy: Yes Hx Coronary Stent: Yes (PCI of the LAD with stent insertion ( [facility]) in 2007 in [place].) - ANESTHESIA Hx Anesthesia: Yes Hx Anesthesia Reactions: No Hx Malignant Hyperthermia: No Has any member of the family had a problem w/ anesthesia?: No Meds Allergies/Adverse Reactions: Allergies Allergy/AdvReac Type Severity Reaction Status Date / Time Penicillins Allergy RASH Verified 06/15/18 14:35 Physical Exam - Constitutional Appears: No Acute Distress, Chronically Ill - Head Exam Head Exam: NORMAL INSPECTION - Eye Exam Eye Exam: Normal appearance Pupil Exam: NORMAL ACCOMODATION - ENT Exam ENT Exam: Normal Exam - Neck Exam Neck exam: Positive for: Normal Inspection - Respiratory Exam Respiratory Exam: Rhonchi - Cardiovascular Exam Cardiovascular Exam: REGULAR RHYTHM, Systolic Murmur - GI/Abdominal Exam GI & Abdominal Exam: Normal Bowel Sounds, Soft - Rectal Exam Rectal Exam: Deferred - Extremities Exam Extremities exam: Positive for: normal inspection - Back Exam Back exam: tenderness Additional comments: Tender low back. - Neurological Exam Neurological exam: Alert, Oriented x3 - Psychiatric Exam Psychiatric exam: Anxious - Skin Skin Exam: Dry, Intact, Warm Results - Vital Signs Recent Vital Signs: Last Vital Signs Temp 98.3 F 11/18/18 16:00 Pulse 83 11/18/18 19:02 Resp 16 11/18/18 19:02 BP 134/50 L 11/18/18 19:02 Pulse Ox 96 11/18/18 19:02 - Labs Result Diagrams: 11/18/18 05:20 11/18/18 11:51 Labs: Laboratory Results - last 24 hr 11/18/18 11/18/18 11/18/18 03:56 05:20 05:20 WBC 37.5 H* RBC 3.68 L Hgb 11.3 Hct 34.3 MCV 93.2 D MCH 30.7 MCHC 32.9 L RDW 13.1 Plt Count 96 L MPV 10.4 Neut % (Auto) 69.6 Lymph % (Auto) 0.7 L Wagoner % (Auto) 29.5 H Eos % (Auto) 0.0 Baso % (Auto) 0.2 Neut # (Auto) 26.0 H Lymph # (Auto) 0.3 L Wagoner # (Auto) 11.1 H Eos # (Auto) 0.0 Baso # (Auto) 0.1 Neutrophils % (Manual) 39 L Band Neutrophils % 43 H* Lymphocytes % (Manual) 3 L Monocytes % (Manual) 15 H Platelet Estimate Decreased L RBC Morphology Normal Puncture Site pCO2 pO2 HCO3 ABG pH ABG Total CO2 ABG O2 Saturation ABG Base Excess Peter Test ABG Potassium Glucose Lactate Liter Flow Crit Value Called To Crit Value Called By Crit Value Read Back Blood Gas Notified Time Sodium Potassium Chloride Carbon Dioxide Anion Gap BUN Creatinine Est GFR ( Amer) Est GFR (Non-Af Amer) POC Glucose (mg/dL) 155 H Random Glucose Hemoglobin A1c 11.2 H D Calcium Phosphorus Magnesium Total Bilirubin AST ALT Alkaline Phosphatase Total Protein Albumin Globulin Albumin/Globulin Ratio Procalcitonin Arterial Blood Potassium B-Hydroxybutyrate 11/18/18 11/18/18 11/18/18 05:20 07:48 11:08 WBC RBC Hgb Hct MCV MCH MCHC RDW Plt Count MPV Neut % (Auto) Lymph % (Auto) Wagoner % (Auto) Eos % (Auto) Baso % (Auto) Neut # (Auto) Lymph # (Auto) Wagoner # (Auto) Eos # (Auto) Baso # (Auto) Neutrophils % (Manual) Band Neutrophils % Lymphocytes % (Manual) Monocytes % (Manual) Platelet Estimate RBC Morphology Puncture Site Lb pCO2 36 pO2 82 HCO3 21.8 ABG pH 7.37 ABG Total CO2 21.9 L ABG O2 Saturation 98.4 H ABG Base Excess -3.9 L Peter Test Na ABG Potassium 3.9 Glucose 116 H Lactate 1.2 Liter Flow 3.0 Crit Value Called To Dr wesley Crit Value Called By Nathanael vargas electrician assistant Crit Value Read Back Y Blood Gas Notified Time 1111 Sodium 139 138.0 Potassium 3.3 L Chloride 110 H 111.0 H Carbon Dioxide 23 Anion Gap 10 BUN 17 Creatinine 1.0 Est GFR ( Amer) > 60 Est GFR (Non-Af Amer) 55 POC Glucose (mg/dL) 89 Random Glucose 101 D Hemoglobin A1c Calcium 8.8 Phosphorus 1.2 L Magnesium 1.3 L Total Bilirubin 0.5 AST 17 ALT 18 Alkaline Phosphatase 94 Total Protein 6.1 L Albumin 3.2 L D Globulin 2.9 Albumin/Globulin Ratio 1.1 Procalcitonin Arterial Blood Potassium 3.9 B-Hydroxybutyrate 11/18/18 11/18/18 11/18/18 11:29 11:51 11:51 WBC RBC Hgb Hct MCV MCH MCHC RDW Plt Count MPV Neut % (Auto) Lymph % (Auto) Wagoner % (Auto) Eos % (Auto) Baso % (Auto) Neut # (Auto) Lymph # (Auto) Wagoner # (Auto) Eos # (Auto) Baso # (Auto) Neutrophils % (Manual) Band Neutrophils % Lymphocytes % (Manual) Monocytes % (Manual) Platelet Estimate RBC Morphology Puncture Site pCO2 pO2 HCO3 ABG pH ABG Total CO2 ABG O2 Saturation ABG Base Excess Peter Test ABG Potassium Glucose Lactate Liter Flow Crit Value Called To Crit Value Called By Crit Value Read Back Blood Gas Notified Time Sodium 135 Potassium 4.0 Chloride 108 H Carbon Dioxide 21 L Anion Gap 11 BUN 18 H Creatinine 0.9 Est GFR ( Amer) > 60 Est GFR (Non-Af Amer) > 60 POC Glucose (mg/dL) 167 H Random Glucose 191 H D Hemoglobin A1c Calcium 8.5 L Phosphorus Magnesium Total Bilirubin AST ALT Alkaline Phosphatase Total Protein Albumin Globulin Albumin/Globulin Ratio Procalcitonin 9.02 H Arterial Blood Potassium B-Hydroxybutyrate 0.37 H 11/18/18 11/18/18 11/18/18 16:01 20:20 23:52 WBC RBC Hgb Hct MCV MCH MCHC RDW Plt Count MPV Neut % (Auto) Lymph % (Auto) Wagoner % (Auto) Eos % (Auto) Baso % (Auto) Neut # (Auto) Lymph # (Auto) Wagoner # (Auto) Eos # (Auto) Baso # (Auto) Neutrophils % (Manual) Band Neutrophils % Lymphocytes % (Manual) Monocytes % (Manual) Platelet Estimate RBC Morphology Puncture Site pCO2 pO2 HCO3 ABG pH ABG Total CO2 ABG O2 Saturation ABG Base Excess Peter Test ABG Potassium Glucose Lactate Liter Flow Crit Value Called To Crit Value Called By Crit Value Read Back Blood Gas Notified Time Sodium Potassium Chloride Carbon Dioxide Anion Gap BUN Creatinine Est GFR ( Amer) Est GFR (Non-Af Amer) POC Glucose (mg/dL) 244 H 238 H 274 H Random Glucose Hemoglobin A1c Calcium Phosphorus Magnesium Total Bilirubin AST ALT Alkaline Phosphatase Total Protein Albumin Globulin Albumin/Globulin Ratio Procalcitonin Arterial Blood Potassium B-Hydroxybutyrate Assessment & Plan (1) DKA (diabetic ketoacidoses) Assessment and Plan: To continue Insulin by IV drip and IV rehydration. Control nausea and vomiting with Zofran IV. Sepsis work up. Correct electrolytes abnormality. Status: Acute (2) Acute exacerbation of chronic low back pain Assessment and Plan: Analgesic to control low back pain. Status: Acute Decision To Admit - Pt Status Changed To: Hospital Disposition Of: Inpatient - Admit Certification Admit to Inpatient:: After my assessment, the patient will require hospitaliz ation for at least two midnights. This is because of the severity of symptoms shown, intensity of services needed, and/or the medical risk in this patient being treated as an outpatient. - InPatient: Physician Admission Certification:: After my assessments, the patient requires hospitalization for at least 2 midnights. - . Bed Request Type: ICU Admitting Physician: Cornell Lynn
[2018-11-19] MEDS: Oxycodone/Acetaminophen 5/325 mg Tab PO PRN (01:35)
[2018-11-19] MEDS: Tigecycline 50 MG in Dextrose 5% In Water 100 ML IVPB SCH ×2 (02:04→13:15)
[2018-11-19] MEDS: Ciprofloxacin 400mg/200ml D5W 400 MG/200 ML BAG IVPB SCH ×2 (02:39→14:53)
[2018-11-19] MEDS: (Novolog) Insulin Aspart, Recombinant 100 u/ml 10 ml vial SC SCH ×7 (08:25→22:03)
[2018-11-19 12:45] LABS: BASO # 0.1 K/uL (0.0-0.2); BASO % 0.4 % (0.0-2.0); HEMOGLOBIN 11.8 g/dL (11.0-16.0); LYMPH # 0.6 K/uL (1.0-4.3); LYMPH % 2.5 % (20.0-40.0); MEAN CORPUSCULAR HEMOGLOBIN 30.8 pg (27.0-31.0); MEAN CORPUSCULAR HGB CONC 32.2 g/dL (33.0-37.0); MEAN PLATELET VOLUME 10.7 fL (7.2-11.7); MONO # 3.2 K/uL (0.0-0.8); NEUT # 22.5 K/uL (1.8-7.0); NEUT % 85.1 % (50.0-75.0); RBC 3.83 Mil/uL (3.80-5.20); RED CELL DISTRIBUTION WIDTH 13.4 % (11.5-14.5); WHITE BLOOD COUNT 26.5 K/uL (4.8-10.8)
[2018-11-19 12:46] LABS: MEAN CELL VOLUME 95.7 fL (81.0-99.0); PLATELET COUNT 97 K/uL (130-400)
[2018-11-19 13:00] LABS: ALB/GLOB RATIO 0.9 (1.0-2.1); ALBUMIN 2.7 g/dL (3.5-5.0); ALT/SGPT 23 U/L (9-52); AST/SGOT 15 U/L (14-36); BILIRUBIN,DIRECT 0.5 mg/dL (0.0-0.4); BLOOD UREA NITROGEN 31 mg/dL (7-17); CALCIUM 8.5 mg/dl (8.6-10.4); GFR NON-AFRICAN AMERICAN > 60
[2018-11-19 13:14] LABS: BANDS 20 % (0-2); LYMPHOCYTE 3 % (20-40); MONOCYTE 13 % (0-10); NEUTROPHIL 64 % (50-75); PLATELET ESTIMATE DECREASED (NORMAL); TOTAL CELLS COUNTED 100
[2018-11-19 13:15] LABS: ANISOCYTOSIS SLIGHT; GIANT PLATELETS PRESENT; HYPOCHROMIC SLIGHT; LARGE PLATELETS PRESENT; POIKILOCYTOSIS SLIGHT
--- NOTE | 2018-11-19 15:44 | RAD ---
Date of service: 11/19/2018 HISTORY: Congestion COMPARISON: 11/17/2018. FINDINGS: LUNGS: The lungs are well inflated and clear. PLEURA: No pleural effusions or pneumothorax. CARDIOVASCULAR: There is moderate cardiomegaly. There are aortic atherosclerotic calcifications present. OSSEOUS STRUCTURES: Within normal limits for the patient's age. VISUALIZED UPPER ABDOMEN: Normal. OTHER FINDINGS: None. IMPRESSION: No active pulmonary disease.
--- NOTE | 2018-11-19 19:07 | PN ---
DATE: 11/19/2018 ENDOCRINOLOGY FOLLOWUP NOTE LOCATION: ICU, Room 10. SUBJECTIVE: This is a 68-year-old female with recent uncontrolled type 2 insulin-requiring diabetes presenting here with diabetic ketoacidosis and dehydration and is now being followed closely for metabolic management. Her glycemic levels are fluctuating as noted thereof and the glucose levels overnight have ranged from 274 to 357 and 382 mg/dL. LABORATORY DATA: Her chemistries showed a BUN of 31, sodium 134, potassium 4.4, chloride 107, CO2 of 16, glucose 318, and creatinine is 0.8. PLAN OF MANAGEMENT: So at this time, we will modify once again her basal and bolus insulin combination as ordered. We will increase the Novolog to 12 units subcutaneous three times a day before meals to start today as ordered. We will also continue the low dose correction scale using Novolog insulin to obviate hypoglycemia and detailed orders have been given. Moreover, we will modify her basal insulin with Lantus to be given as 24 units subcutaneously at bedtime daily to start today. We will obtain serial chemistries and supplement accordingly as needed. We will also continue the vigorous intravenous hydration to fully replenish the loss of fluids and the electrolytes from the increase of osmatic diuresis thereof. We will follow and advice accordingly. Elly Hannah MD
[2018-11-19] MEDS ORDERED: (Lantus) Insulin Glargine, Recombinant SC SCH ×2 (22:00)
--- NOTE | 2018-11-19 22:16 | CP.PCM.PN ---
Subjective - Date & Time of Evaluation Date of Evaluation: 11/19/18 Time of Evaluation: 11:30 - Subjective Subjective: Patient complaining of a productive cough. Afebrile, but a CXR showed no infiltrate. Still with marked leukocytosis with shift to the left. On IV antibiotic empirically. Also on Lantus and Novolog S/C TID AC. Objective - Vital Signs/Intake and Output Vital Signs (last 24 hours): Temp Pulse Resp BP Pulse Ox 97.6 F 82 20 150/80 97 11/19/18 16:00 11/19/18 16:00 11/19/18 16:00 11/19/18 16:00 11/19/18 16:00 Intake and Output: 11/19/18 11/20/18 18:59 06:59 Output Total 300 Balance -300 - Medications Medications: Current Medications Dextrose (Dextrose 50% Inj) 0 ml IV STAT PRN; Protocol PRN Reason: Hypoglycemia Protocol Dextrose (Glutose 15) 0 gm PO ONCE PRN; Protocol PRN Reason: Hypoglycemia Protocol Famotidine (Pepcid) 20 mg IVP DAILY [facility] Last Admin: 11/19/18 10:03 Dose: 20 mg Glucagon (Glucagen Diagnostic Kit) 0 mg IM STAT PRN; Protocol PRN Reason: Hypoglycemia Protocol Heparin Sodium (Porcine) (Heparin) 5,000 units SC Q12 [facility] Last Admin: 11/19/18 22:07 Dose: 5,000 units Potassium Chloride 20 meq/ (Sodium Chloride) 1,010 mls @ 150 mls/hr IV .Q6H44M [facility] Last Admin: 11/19/18 16:30 Dose: 150 mls/hr Dextrose (Dextrose 5% In Water 1000 Ml) 1,000 mls @ 0 mls/hr IV .Q0M PRN; Protocol PRN Reason: Hypoglycemia Protocol Ciprofloxacin (Cipro 400mg/200ml Dsw) 400 mg in 200 mls @ 133 mls/hr IVPB Q12H [facility]; Protocol Last Admin: 11/19/18 14:53 Dose: 133 mls/hr Tigecycline 50 mg/ Dextrose 100 mls @ 100 mls/hr IVPB Q12H [facility]; Protocol Last Admin: 11/19/18 13:15 Dose: 100 mls/hr Insulin Aspart (Novolog) 0 unit SC ACHS [facility] Last Admin: 11/19/18 22:03 Dose: Not Given Insulin Aspart (Novolog) 12 unit SC AC [facility] Last Admin: 11/19/18 17:12 Dose: 12 unit Insulin Glargine (Lantus) 24 unit SC HS [facility] Last Admin: 11/19/18 22:08 Dose: 24 unit Ondansetron HCl (Zofran Inj) 4 mg IVP Q4 PRN PRN Reason: Nausea/Vomiting Last Admin: 11/19/18 05:11 Dose: 4 mg Oxycodone/Acetaminophen (Percocet 5/325 Mg Tab) 1 tab PO Q6H PRN PRN Reason: Pain, severe (8-10) Stop: 11/20/18 20:30 Last Admin: 11/19/18 01:35 Dose: 1 tab - Labs Labs: 11/19/18 12:35 11/19/18 12:35 - Constitutional Appears: No Acute Distress, Chronically Ill - Head Exam Head Exam: NORMAL INSPECTION - Eye Exam Eye Exam: Normal appearance - ENT Exam ENT Exam: Normal Exam - Neck Exam Neck Exam: Normal Inspection - Respiratory Exam Respiratory Exam: Rhonchi - Cardiovascular Exam Cardiovascular Exam: REGULAR RHYTHM - GI/Abdominal Exam GI & Abdominal Exam: Soft, Normal Bowel Sounds - Rectal Exam Rectal Exam: Deferred - Exam Exam: NORMAL INSPECTION - Extremities Exam Extremities Exam: Normal Inspection - Back Exam Back Exam: NORMAL INSPECTION - Neurological Exam Neurological Exam: Alert, Awake, Oriented x3 - Psychiatric Exam Psychiatric exam: Anxious - Skin Skin Exam: Dry, Intact, Normal Color Assessment and Plan (1) DKA (diabetic ketoacidoses) Status: Acute (2) Acute exacerbation of chronic low back pain Status: Acute
--- NOTE | 2018-11-19 23:45 | CP.PCM.PN ---
Subjective - Date & Time of Evaluation Date of Evaluation: 11/19/18 Time of Evaluation: 23:45 - Subjective Subjective: CHIEF COMPLAINTS TODAY : AFEBRILE VSS C/O NAUSEA +VE PRODUCTIVE COUGH ROS. HEENT : N. Resp : +VE cough, wheezing ,pleuritic CP ,or hemoptysis Cardio : No anginal CP, PND, orthopnea, palpitation GI : +VE ABDOMINAL PAIN , NAUSEA AND VOMITING . NO diarrhea or GI bleeding . PUBLIC RELATIONS PLAYER : No headache, vertigo, focal deficit. Musculoskel : No joint swelling , Derm : No rash Psych : Normal affect. Ext : No swelling ,calf pain PE. Pt. is alert awake in no distress. V.S As noted in the chart Head ,ear nose,throat and eyes : Normal. Neck : Supple with normal carotids. Lungs: Clear air entry. Heart : S1 & S2 normal with S4. No murmur. Abd : SOFT, MILD TENDERNESS EPIGASTRIUM with normal bowel sounds. Neuro : Moves all ext. with no localized deficit. Ext : No edema with intact pulses.Non tender calves Derm : No rashes or decubitus ulcer. LABS/RADIOLOGY: REVIEWED. SPUTUM +VE STAPH AUREUS. URINE CULTURE +VE GP COCCI LEUKOCYTOSIS W BANDEMIA+VE : Objective - Vital Signs/Intake and Output Vital Signs (last 24 hours): Temp Pulse Resp BP Pulse Ox 97.6 F 82 20 150/80 97 11/19/18 16:00 11/19/18 16:00 11/19/18 16:00 11/19/18 16:00 11/19/18 16:00 Intake and Output: 11/19/18 11/20/18 18:59 06:59 Intake Total 1000 Output Total 300 400 Balance -300 600 - Medications Medications: Current Medications Dextrose (Dextrose 50% Inj) 0 ml IV STAT PRN; Protocol PRN Reason: Hypoglycemia Protocol Dextrose (Glutose 15) 0 gm PO ONCE PRN; Protocol PRN Reason: Hypoglycemia Protocol Famotidine (Pepcid) 20 mg IVP DAILY [facility] Last Admin: 11/19/18 10:03 Dose: 20 mg Glucagon (Glucagen Diagnostic Kit) 0 mg IM STAT PRN; Protocol PRN Reason: Hypoglycemia Protocol Heparin Sodium (Porcine) (Heparin) 5,000 units SC Q12 [facility] Last Admin: 11/19/18 22:07 Dose: 5,000 units Potassium Chloride 20 meq/ (Sodium Chloride) 1,010 mls @ 150 mls/hr IV .Q6H44M [facility] Last Admin: 11/19/18 22:17 Dose: Not Given Dextrose (Dextrose 5% In Water 1000 Ml) 1,000 mls @ 0 mls/hr IV .Q0M PRN; Protocol PRN Reason: Hypoglycemia Protocol Ciprofloxacin (Cipro 400mg/200ml Dsw) 400 mg in 200 mls @ 133 mls/hr IVPB Q12H [facility]; Protocol Last Admin: 11/19/18 14:53 Dose: 133 mls/hr Tigecycline 50 mg/ Dextrose 100 mls @ 100 mls/hr IVPB Q12H [facility]; Protocol Last Admin: 11/19/18 13:15 Dose: 100 mls/hr Insulin Aspart (Novolog) 0 unit SC ACHS [facility] Last Admin: 11/19/18 22:03 Dose: Not Given Insulin Aspart (Novolog) 12 unit SC AC [facility] Last Admin: 11/19/18 17:12 Dose: 12 unit Insulin Glargine (Lantus) 24 unit SC HS [facility] Last Admin: 11/19/18 22:08 Dose: 24 unit Ondansetron HCl (Zofran Inj) 4 mg IVP Q4 PRN PRN Reason: Nausea/Vomiting Last Admin: 11/19/18 05:11 Dose: 4 mg Oxycodone/Acetaminophen (Percocet 5/325 Mg Tab) 1 tab PO Q6H PRN PRN Reason: Pain, severe (8-10) Stop: 11/20/18 20:30 Last Admin: 11/19/18 01:35 Dose: 1 tab - Labs Labs: 11/19/18 12:35 11/19/18 12:35 Assessment and Plan (1) Sepsis syndrome Status: Acute (2) DKA (diabetic ketoacidoses) Status: Acute (3) Abdominal pain Status: Acute (4) Insulin dependent diabetes mellitus Status: Chronic (5) Hypertension Status: Chronic - Assessment and Plan (Free Text) Plan: PLAN; CONTINUE CIPRO 400 MG iv PIGGYBACK EVERY 12 HOURLY 11/18/18. DC iv TYGACIL 50 MG EVERY 12 HOURLY. 11/18/18 - 11/20/18 ?IN VIEW OF NAUSEA/ AND UTI START IV VANCOMYCIN 1GM LOADING DOSE STAT. 1/12/19 F/U BY VANCOMYCIN 750MG IVPB Q 12HRLY FOLLOW-UP CULTURES TO ADJUST ANTIBIOTICS. CBC W DIFF BMP, VANCO TROUGH PRIOR TO 4TH DOSE AND KEEP BETWEEN 10-20MG/ML
[2018-11-20] MEDS: Ciprofloxacin 400mg/200ml D5W 400 MG/200 ML BAG IVPB SCH ×2 (03:02→14:16)
[2018-11-20 07:15] LABS: BASO # 0.1 K/uL (0.0-0.2); BASO % 0.3 % (0.0-2.0); HEMOGLOBIN 12.4 g/dL (11.0-16.0); LYMPH # 0.7 K/uL (1.0-4.3); LYMPH % 3.3 % (20.0-40.0); MEAN CELL VOLUME 94.3 fL (81.0-99.0); MEAN CORPUSCULAR HEMOGLOBIN 31.4 pg (27.0-31.0); MEAN CORPUSCULAR HGB CONC 33.3 g/dL (33.0-37.0); MEAN PLATELET VOLUME 11.3 fL (7.2-11.7); MONO # 2.3 K/uL (0.0-0.8); MONO % 11.5 % (0.0-10.0); NEUT # 16.9 K/uL (1.8-7.0); NEUT % 84.9 % (50.0-75.0); PLATELET COUNT 97 K/uL (130-400); RBC 3.95 Mil/uL (3.80-5.20); RED CELL DISTRIBUTION WIDTH 13.4 % (11.5-14.5); WHITE BLOOD COUNT 19.9 K/uL (4.8-10.8)
[2018-11-20 07:23] LABS: ALB/GLOB RATIO 0.9 (1.0-2.1); ALBUMIN 2.4 g/dL (3.5-5.0); BILIRUBIN,DIRECT 0.4 mg/dL (0.0-0.4)
[2018-11-20 07:38] LABS: ALB/GLOB RATIO 0.9 (1.0-2.1); ALBUMIN 2.4 g/dL (3.5-5.0); ALT/SGPT 16 U/L (9-52); AST/SGOT 15 U/L (14-36); BLOOD UREA NITROGEN 26 mg/dL (7-17); CALCIUM 8.4 mg/dl (8.6-10.4); GFR NON-AFRICAN AMERICAN > 60
[2018-11-20] MEDS: (Novolog) Insulin Aspart, Recombinant 100 u/ml 10 ml vial SC SCH ×7 (08:11→21:42)
[2018-11-20 09:35] LABS: BANDS 11 % (0-2); LYMPHOCYTE 7 % (20-40); MONOCYTE 7 % (0-10); MYELOCYTE 2 % (0-0); NEUTROPHIL 72 % (50-75); PLATELET ESTIMATE DECREASED (NORMAL); REACTIVE LYMPHOCYTES 1 % (0-0); TOTAL CELLS COUNTED 100
[2018-11-20 09:36] LABS: LARGE PLATELETS PRESENT
[2018-11-20] MEDS ORDERED: Albuterol 0.083% Inhal Sol (2.5 mg/3 mL) UD INH PRN (14:24)
[2018-11-20 17:05] LABS: AMYLASE 36 U/L (30-110); LIPASE 22 U/L (23-300)
--- NOTE | 2018-11-20 20:11 | CP.PCM.PN ---
Subjective - Date & Time of Evaluation Date of Evaluation: 11/20/18 Time of Evaluation: 20:11 - Subjective Subjective: CHIEF COMPLAINTS TODAY : AFEBRILE VSS +ve COUGH DENIES NAUSEA/VOMITING. C/O ABDOMINAL/BACKPAIN ROS. HEENT : N. Resp : +VE cough, NO wheezing ,pleuritic CP ,or hemoptysis Cardio : No anginal CP, PND, orthopnea, palpitation GI : +VE ABDOMINAL PAIN , NAUSEA AND VOMITING . NO diarrhea or GI bleeding . RETURN AGENT : No headache, vertigo, focal deficit. Musculoskel : No joint swelling , Derm : No rash Psych : Normal affect. Ext : No swelling ,calf pain PE. Pt. is alert awake in no distress. V.S As noted in the chart Head ,ear nose,throat and eyes : Normal. Neck : Supple with normal carotids. Lungs: B/L RHONCHI Heart : S1 & S2 normal with S4. No murmur. Abd : SOFT, MILD TENDERNESS EPIGASTRIUM with normal bowel sounds. Neuro : Moves all ext. with no localized deficit. Ext : No edema with intact pulses.Non tender calves Derm : No rashes or decubitus ulcer. LABS/RADIOLOGY: REVIEWED. WBC 19.9 W 11% BANDS CREAT 0.6/BUN 26 SPUTUM +VE STAPH AUREUS S - CIPRO. URINE CULTURE +VE BETA HAEMOLYTIC STREP . GROUP B S- AMPICILLIN, VANCOMYCIN Objective - Vital Signs/Intake and Output Vital Signs (last 24 hours): Temp Pulse Resp BP Pulse Ox 98 F 78 20 156/82 H 99 11/20/18 16:00 11/20/18 16:00 11/20/18 16:00 11/20/18 16:00 11/20/18 16:00 - Medications Medications: Current Medications Albuterol Sulfate (Albuterol 0.083% Inhal Shannan (2.5 Mg/3 Ml) Ud) 2.5 mg INH RQ6 PRN PRN Reason: Wheezing Dextrose (Dextrose 50% Inj) 0 ml IV STAT PRN; Protocol PRN Reason: Hypoglycemia Protocol Dextrose (Glutose 15) 0 gm PO ONCE PRN; Protocol PRN Reason: Hypoglycemia Protocol Famotidine (Pepcid) 20 mg IVP DAILY [facility] Last Admin: 11/20/18 10:42 Dose: 20 mg Glucagon (Glucagen Diagnostic Kit) 0 mg IM STAT PRN; Protocol PRN Reason: Hypoglycemia Protocol Guaifenesin/Dextromethorphan (Robitussin Dm) 5 ml PO Q4H PRN PRN Reason: Cough Heparin Sodium (Porcine) (Heparin) 5,000 units SC Q12 [facility] Last Admin: 11/20/18 10:42 Dose: 5,000 units Potassium Chloride 20 meq/ (Sodium Chloride) 1,010 mls @ 150 mls/hr IV .Q6H44M [facility] Last Admin: 11/20/18 14:17 Dose: Not Given Dextrose (Dextrose 5% In Water 1000 Ml) 1,000 mls @ 0 mls/hr IV .Q0M PRN; Protocol PRN Reason: Hypoglycemia Protocol Ciprofloxacin (Cipro 400mg/200ml Dsw) 400 mg in 200 mls @ 133 mls/hr IVPB Q12H [facility]; Protocol Last Admin: 11/20/18 14:16 Dose: 133 mls/hr Vancomycin HCl 750 mg/ Sodium (Chloride) 250 mls @ 166.6 mls/hr IVPB Q12H [facility]; Protocol Last Admin: 11/20/18 12:30 Dose: 166.6 mls/hr Insulin Aspart (Novolog) 0 unit SC ACHS [facility] Last Admin: 11/20/18 16:14 Dose: Not Given Insulin Aspart (Novolog) 8 unit SC AC [facility] Last Admin: 11/20/18 16:14 Dose: Not Given Insulin Glargine (Lantus) 24 unit SC HS [facility] Last Admin: 11/19/18 22:08 Dose: 24 unit Ondansetron HCl (Zofran Inj) 4 mg IVP Q4 PRN PRN Reason: Nausea/Vomiting Last Admin: 11/19/18 05:11 Dose: 4 mg Oxycodone/Acetaminophen (Percocet 5/325 Mg Tab) 1 tab PO Q6H PRN PRN Reason: Pain, severe (8-10) Stop: 11/20/18 20:30 Last Admin: 11/19/18 01:35 Dose: 1 tab - Labs Labs: 11/20/18 07:01 11/20/18 07:01 Assessment and Plan (1) Sepsis syndrome Status: Acute (2) DKA (diabetic ketoacidoses) Status: Resolved (3) Abdominal pain Status: Acute (4) Insulin dependent diabetes mellitus Status: Chronic (5) Hypertension Status: Chronic - Assessment and Plan (Free Text) Plan: CONTINUE CIPRO 400 MG iv PIGGYBACK EVERY 12 HOURLY 11/18/18. CONTINUE IV VANCOMYCIN 750MG IVPB Q 12HRLY 11/20 VANCO TROUGH PRIOR TO 4TH DOSE AND KEEP BETWEEN 10-20MG/ML CT CHEST W/O CONTRAST R/O INFILTRATE/ PNEUMONITIS PULMONARY TOILET.
[2018-11-20] MEDS: (Lantus) Insulin Glargine, Recombinant SC SCH (21:34)
--- NOTE | 2018-11-20 23:32 | CP.PCM.PN ---
Subjective - Date & Time of Evaluation Date of Evaluation: 11/20/18 Time of Evaluation: 19:30 - Subjective Subjective: Patient awake, in no distress, has no more nausea. Sputum culture revealed Staph Aureus sensitive to Cipro. Urine culture revealed Beta hemolytic Strep. Afebrile. WBC: 19,900 Blood glucose better. Still with a mild cough, but CXR did not show any infiltrate. Objective - Vital Signs/Intake and Output Vital Signs (last 24 hours): Temp Pulse Resp BP Pulse Ox 98 F 78 20 156/82 H 99 11/20/18 16:00 11/20/18 16:00 11/20/18 16:00 11/20/18 16:00 11/20/18 16:00 Intake and Output: 11/20/18 11/21/18 18:59 06:59 Intake Total 1500 Output Total 1000 Balance 500 - Medications Medications: Current Medications Albuterol Sulfate (Albuterol 0.083% Inhal Shannan (2.5 Mg/3 Ml) Ud) 2.5 mg INH RQ6 PRN PRN Reason: Wheezing Dextrose (Dextrose 50% Inj) 0 ml IV STAT PRN; Protocol PRN Reason: Hypoglycemia Protocol Dextrose (Glutose 15) 0 gm PO ONCE PRN; Protocol PRN Reason: Hypoglycemia Protocol Docusate Sodium (Colace) 100 mg PO BID [facility] Last Admin: 11/20/18 21:34 Dose: 100 mg Famotidine (Pepcid) 20 mg IVP DAILY [facility] Last Admin: 11/20/18 10:42 Dose: 20 mg Glucagon (Glucagen Diagnostic Kit) 0 mg IM STAT PRN; Protocol PRN Reason: Hypoglycemia Protocol Guaifenesin/Dextromethorphan (Robitussin Dm) 5 ml PO Q4H PRN PRN Reason: Cough Heparin Sodium (Porcine) (Heparin) 5,000 units SC Q12 [facility] Last Admin: 11/20/18 21:34 Dose: 5,000 units Potassium Chloride 20 meq/ (Sodium Chloride) 1,010 mls @ 150 mls/hr IV .Q6H44M [facility] Last Admin: 11/20/18 21:25 Dose: Not Given Dextrose (Dextrose 5% In Water 1000 Ml) 1,000 mls @ 0 mls/hr IV .Q0M PRN; Protocol PRN Reason: Hypoglycemia Protocol Ciprofloxacin (Cipro 400mg/200ml Dsw) 400 mg in 200 mls @ 133 mls/hr IVPB Q12H [facility]; Protocol Last Admin: 11/20/18 14:16 Dose: 133 mls/hr Vancomycin HCl 750 mg/ Sodium (Chloride) 250 mls @ 166.6 mls/hr IVPB Q12H [facility]; Protocol Last Admin: 11/20/18 12:30 Dose: 166.6 mls/hr Insulin Aspart (Novolog) 0 unit SC ACHS [facility] Last Admin: 11/20/18 21:42 Dose: Not Given Insulin Aspart (Novolog) 8 unit SC AC [facility] Last Admin: 11/20/18 16:14 Dose: Not Given Insulin Glargine (Lantus) 20 unit SC HS [facility] Last Admin: 11/20/18 21:34 Dose: 20 units Ondansetron HCl (Zofran Inj) 4 mg IVP Q4 PRN PRN Reason: Nausea/Vomiting Last Admin: 11/19/18 05:11 Dose: 4 mg - Labs Labs: 11/20/18 07:01 11/20/18 07:01 - Constitutional Appears: No Acute Distress, Chronically Ill - Head Exam Head Exam: NORMOCEPHALIC - Eye Exam Eye Exam: Normal appearance - ENT Exam ENT Exam: Normal Exam - Neck Exam Neck Exam: Normal Inspection - Respiratory Exam Respiratory Exam: Rhonchi Additional comments: Few scattered rhonchi bilaterally. - Cardiovascular Exam Cardiovascular Exam: REGULAR RHYTHM - GI/Abdominal Exam GI & Abdominal Exam: Soft, Normal Bowel Sounds - Rectal Exam Rectal Exam: Deferred - Extremities Exam Extremities Exam: Normal Inspection - Back Exam Back Exam: vertebral tenderness Additional comments: Lumbar spine tenderness. - Neurological Exam Neurological Exam: Alert, Awake, Oriented x3 - Psychiatric Exam Psychiatric exam: Anxious - Skin Skin Exam: Dry, Intact, Normal Color, Warm Assessment and Plan (1) DKA (diabetic ketoacidoses) Assessment & Plan: Glucose control as per Dr Hannah. Status: Resolved (2) Acute exacerbation of chronic low back pain Status: Acute (3) Sepsis syndrome Assessment & Plan: IV antibiotic as per DR Arellano. Status: Acute
[2018-11-21] MEDS: Ciprofloxacin 400mg/200ml D5W 400 MG/200 ML BAG IVPB SCH ×2 (02:43→14:30)
[2018-11-21] MEDS: guaiFENesin DM 100 mg-10 mg/5 ml UD PO PRN (06:48)
[2018-11-21 07:17] LABS: BASO # 0.1 K/uL (0.0-0.2); BASO % 0.5 % (0.0-2.0); EOS % 0.1 % (0.0-4.0); HEMOGLOBIN 13.5 g/dL (11.0-16.0); LYMPH # 0.8 K/uL (1.0-4.3); LYMPH % 5.7 % (20.0-40.0); MEAN CELL VOLUME 94.1 fL (81.0-99.0); MEAN CORPUSCULAR HEMOGLOBIN 31.5 pg (27.0-31.0); MEAN CORPUSCULAR HGB CONC 33.5 g/dL (33.0-37.0); MEAN PLATELET VOLUME 11.4 fL (7.2-11.7); MONO # 2.6 K/uL (0.0-0.8); MONO % 17.5 % (0.0-10.0); NEUT # 11.4 K/uL (1.8-7.0); NEUT % 76.2 % (50.0-75.0); PLATELET COUNT 104 K/uL (130-400); RBC 4.29 Mil/uL (3.80-5.20); RED CELL DISTRIBUTION WIDTH 13.7 % (11.5-14.5)
[2018-11-21 07:43] LABS: ALB/GLOB RATIO 0.9 (1.0-2.1); ALBUMIN 2.4 g/dL (3.5-5.0); ALT/SGPT 20 U/L (9-52); AST/SGOT 20 U/L (14-36); BLOOD UREA NITROGEN 14 mg/dL (7-17); CALCIUM 8.2 mg/dl (8.6-10.4); GFR NON-AFRICAN AMERICAN > 60
[2018-11-21] MEDS: (Novolog) Insulin Aspart, Recombinant 100 u/ml 10 ml vial SC SCH ×7 (07:56→21:45)
[2018-11-21] MEDS: Potassium Chloride 20 mEq ER Tab PO ONE ×2 (09:22→09:24)
[2018-11-21] MEDS: Promethazine/Cod 6.25mg-10mg/5ml Syr UD PO SCH ×2 (09:24→12:25)
--- NOTE | 2018-11-21 10:19 | CARD ---
APPROVED REPORT Date of service: 11/17/2018 EKG Measurement Heart [id number] <Conclusion> Sinus tachycardia with occasional premature ventricular complexes Left ventricular hypertrophy with repolarization abnormality Possible Inferior infarct, age undetermined Cannot rule out Anterior infarct, age undetermined Abnormal ECG
[2018-11-21 11:22] LABS: BANDS 5 % (0-2); LYMPHOCYTE 11 % (20-40); MONOCYTE 12 % (0-10); NEUTROPHIL 72 % (50-75); TOTAL CELLS COUNTED 100
[2018-11-21 11:23] LABS: PLATELET ESTIMATE DECREASED (NORMAL)
[2018-11-21] MEDS ORDERED: Promethazine/Cod 6.25mg-10mg/5ml Syr UD PO SCH (12:00)
--- NOTE | 2018-11-21 15:08 | PN ---
DATE: 11/21/2018 LOCATION: Room 356. SUBJECTIVE: This is a 68-year-old female with recent uncontrolled type 2 insulin-requiring diabetes presenting here with diabetic ketoacidosis and dehydration and is now improved clinically and metabolically as noted. She received vigorous IV hydration and intensive insulin therapy as given. Her glucose values have ranged from 123 to 124 and 196 mg/dL. LABORATORY DATA: Her chemistries showed a BUN of 14, sodium 134, potassium 3.4, chloride 105, CO2 of 21, glucose 125, and creatinine is 0.5. PLAN OF MANAGEMENT: So at this time, we will continue the same basal and bolus insulin regimen as given with Lantus given as 20 units subcu at bedtime daily as ordered. We will lower the NovoLog to 8 units t.i.d. before meals to start today as ordered. We will continue also the low dose correction scale using NovoLog insulin as given. We will follow and advice accordingly. Elly Hannah MD
--- NOTE | 2018-11-21 16:52 | CT ---
Date of service: 11/21/2018 PROCEDURE: CT Chest without contrast HISTORY: PNEUMONIA/BRONCHOPULMONARY INFECTION COMPARISON: Plain radiograph 11/19/2018 the. TECHNIQUE: Contiguous axial images were obtained through the chest without intravenous contrast enhancement. Sagittal and coronal reconstructions were performed. Radiation dose: Total exam DLP = 555.08 mGy-cm. This CT exam was performed using one or more of the following dose reduction techniques: Automated exposure control, adjustment of the mA and/or kV according to patient size, and/or use of iterative reconstruction technique. FINDINGS: LUNGS: The lungs are well inflated. There are tree in bud opacities in the right middle lobe, left upper lobe, and larger nodular opacities in the lingula. There is also patchy airspace disease in the left lower lobe. There are no endobronchial lesions. MEDIASTINUM: The aorta is not dilated. The heart is normal in size. No pericardial effusion. No aortic atherosclerotic calcification. PLEURA: Moderate right and small left pleural effusions. There is more confluent airspace disease in the right lower lobe. There is no pneumothorax. BONES: Chronic fracture in the T12 vertebral body. Diffuse bone demineralization and multilevel degenerative changes. UPPER ABDOMEN: Grossly unremarkable. OTHER FINDINGS: None. IMPRESSION: 1. Multifocal tree-in-bud opacities in the right middle lobe, left upper lobe, lingula, nodular airspace disease in the lingula and more patchy airspace disease in the left lower lobe most compatible with infectious bronchiolitis/bronchopneumonia. 2. Moderate right and small left pleural effusions. Confluent airspace disease in the right lower lobe may represent atelectasis however superimposed pneumonia cannot be excluded. Follow-up after medical management is recommended to ensure complete resolution.
[2018-11-21] MEDS: (Lantus) Insulin Glargine, Recombinant SC SCH (21:43)
--- NOTE | 2018-11-21 21:58 | CP.PCM.PN ---
Subjective - Date & Time of Evaluation Date of Evaluation: 11/21/18 Time of Evaluation: 21:58 - Subjective Subjective: CHIEF COMPLAINTS TODAY : AFEBRILE VSS +ve COUGH productive ROS. HEENT : N. Resp : +VE cough, NO wheezing ,pleuritic CP ,or hemoptysis Cardio : No anginal CP, PND, orthopnea, palpitation GI : +VE EPIGASTRIC PAIN , AND NAUSEA . NO diarrhea or GI bleeding . 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 Musculoskel : No joint swelling , Derm : No rash Psych : Normal affect. Ext : No swelling ,calf pain PE. Pt. is alert awake in no distress. V.S As noted in the chart Head ,ear nose,throat and eyes : Normal. Neck : Supple with normal carotids. Lungs: B/L RHONCHI Heart : S1 & S2 normal with S4. No murmur. Abd : SOFT, MILD TENDERNESS EPIGASTRIUM with normal bowel sounds. Neuro : Moves all ext. with no localized deficit. Ext : No edema with intact pulses.Non tender calves Derm : No rashes or decubitus ulcer. LABS/RADIOLOGY: REVIEWED. WBC 15.0 CREAT 0.5/BUN 14 SPUTUM +VE STAPH AUREUS S - CIPRO,MSSA URINE CULTURE +VE BETA HAEMOLYTIC STREP . GROUP B S- AMPICILLIN, VANCOMYCIN. 11/21/18 CT CHEST W/O CONTRAST-multifocal tree-in-bud opacities RML,KARTHIK, lingular. Nodular airspace disease in the lingula and more patchy airspace disease LLL -bronchiolitis/bronchopneumonia. CONFLUENT AIRSPACE DISEASE RLL ? PNEUMONIA VERSUS ATELECTASIS. Moderate right/and small left pleural effusion. Objective - Vital Signs/Intake and Output Vital Signs (last 24 hours): Temp Pulse Resp BP Pulse Ox 97.9 F 70 20 149/73 95 11/21/18 16:00 11/21/18 16:00 11/21/18 16:00 11/21/18 17:45 11/21/18 16:00 Intake and Output: 11/21/18 11/22/18 18:59 06:59 Intake Total 1100 Output Total 1000 Balance 100 - Medications Medications: Current Medications Acetaminophen (Tylenol 325mg Tab) 650 mg PO Q6 PRN PRN Reason: Pain, moderate (4-7) Last Admin: 11/21/18 21:44 Dose: 650 mg Albuterol Sulfate (Albuterol 0.083% Inhal Shannan (2.5 Mg/3 Ml) Ud) 2.5 mg INH RQ6 PRN PRN Reason: Wheezing Dextrose (Dextrose 50% Inj) 0 ml IV STAT PRN; Protocol PRN Reason: Hypoglycemia Protocol Dextrose (Glutose 15) 0 gm PO ONCE PRN; Protocol PRN Reason: Hypoglycemia Protocol Docusate Sodium (Colace) 100 mg PO BID [facility] Last Admin: 11/21/18 17:45 Dose: 100 mg Famotidine (Pepcid) 20 mg IVP DAILY [facility] Last Admin: 11/21/18 09:22 Dose: 20 mg Glucagon (Glucagen Diagnostic Kit) 0 mg IM STAT PRN; Protocol PRN Reason: Hypoglycemia Protocol Guaifenesin/Dextromethorphan (Robitussin Dm) 5 ml PO Q4H PRN PRN Reason: Cough Last Admin: 11/21/18 06:48 Dose: 5 ml Heparin Sodium (Porcine) (Heparin) 5,000 units SC Q12 [facility] Last Admin: 11/21/18 21:45 Dose: 5,000 units Dextrose (Dextrose 5% In Water 1000 Ml) 1,000 mls @ 0 mls/hr IV .Q0M PRN; Protocol PRN Reason: Hypoglycemia Protocol Ciprofloxacin (Cipro 400mg/200ml Dsw) 400 mg in 200 mls @ 133 mls/hr IVPB Q12H [facility]; Protocol Last Admin: 11/21/18 14:30 Dose: 133 mls/hr Vancomycin HCl 750 mg/ Sodium (Chloride) 250 mls @ 166.6 mls/hr IVPB Q12H [facility]; Protocol Last Admin: 11/21/18 12:27 Dose: 166.6 mls/hr Insulin Aspart (Novolog) 0 unit SC ACHS [facility] Last Admin: 11/21/18 21:45 Dose: Not Given Insulin Aspart (Novolog) 8 unit SC AC [facility] Last Admin: 11/21/18 17:46 Dose: 8 u Insulin Glargine (Lantus) 20 unit SC HS [facility] Last Admin: 11/21/18 21:43 Dose: 20 units Isosorbide Mononitrate (Imdur Er) 30 mg PO DAILY [facility] Last Admin: 11/21/18 09:22 Dose: 30 mg Metoprolol Tartrate (Lopressor) 25 mg PO ACBD [facility] Last Admin: 11/21/18 17:45 Dose: 25 mg Ondansetron HCl (Zofran Inj) 4 mg IVP Q4 PRN PRN Reason: Nausea/Vomiting Last Admin: 11/21/18 09:34 Dose: 4 mg - Labs Labs: 11/21/18 07:09 11/21/18 07:09 Assessment and Plan (1) Bilateral bronchopneumonia Status: Acute (2) Sepsis syndrome Status: Acute (3) DKA (diabetic ketoacidoses) Status: Resolved (4) Abdominal pain Status: Acute (5) Insulin dependent diabetes mellitus Status: Chronic (6) Hypertension Status: Chronic - Assessment and Plan (Free Text) Plan: Plan: CONTINUE CIPRO 400 MG iv PIGGYBACK EVERY 12 HOURLY 11/18/18. CONTINUE IV VANCOMYCIN 750MG IVPB Q 12HRLY 11/20 VANCO TROUGH PRIOR TO 4TH DOSE AND KEEP BETWEEN 10-20MG/ML . WILL GET QUANTIFERON GOLD TB TEST IN VIEW OF NODULAR INFILTRATES AND MULTIFOCAL TREE-IN-BUD OPACITIES R/O GRANULOMATOUS LUNG DISEASE/VS [place]-MYCOBACTERIAL INFECTION. PATIENT IS DIABETIC AND INCREASED RISK FOR SUPERINFECTION' WITH ATYPICAL PATHOGENS. SPUTUM FOR AFB DAILY MORNING SPECIMEN X3. PRIVATE ROOM/ [employer] PRECAUTIONS FOR THE PATIENT FOR NOW.
--- NOTE | 2018-11-21 23:53 | CP.PCM.PN ---
Subjective - Date & Time of Evaluation Date of Evaluation: 11/21/18 Time of Evaluation: 18:30 - Subjective Subjective: Patient complaining of a productive cough, and a right sided chest pain. CT scan of the chest revealed bilateral infiltrates. On IV Cipro. Objective - Vital Signs/Intake and Output Vital Signs (last 24 hours): Temp Pulse Resp BP Pulse Ox 97.9 F 70 20 149/73 95 11/21/18 16:00 11/21/18 16:00 11/21/18 16:00 11/21/18 17:45 11/21/18 16:00 Intake and Output: 11/21/18 11/22/18 18:59 06:59 Intake Total 1100 400 Output Total 1000 400 Balance 100 0 - Medications Medications: Current Medications Acetaminophen (Tylenol 325mg Tab) 650 mg PO Q6 PRN PRN Reason: Pain, moderate (4-7) Last Admin: 11/21/18 21:44 Dose: 650 mg Albuterol Sulfate (Albuterol 0.083% Inhal Shannan (2.5 Mg/3 Ml) Ud) 2.5 mg INH RQ6 PRN PRN Reason: Wheezing Dextrose (Dextrose 50% Inj) 0 ml IV STAT PRN; Protocol PRN Reason: Hypoglycemia Protocol Dextrose (Glutose 15) 0 gm PO ONCE PRN; Protocol PRN Reason: Hypoglycemia Protocol Docusate Sodium (Colace) 100 mg PO BID [facility] Last Admin: 11/21/18 17:45 Dose: 100 mg Famotidine (Pepcid) 20 mg IVP DAILY [facility] Last Admin: 11/21/18 09:22 Dose: 20 mg Glucagon (Glucagen Diagnostic Kit) 0 mg IM STAT PRN; Protocol PRN Reason: Hypoglycemia Protocol Guaifenesin/Dextromethorphan (Robitussin Dm) 5 ml PO Q4H PRN PRN Reason: Cough Last Admin: 11/21/18 06:48 Dose: 5 ml Heparin Sodium (Porcine) (Heparin) 5,000 units SC Q12 [facility] Last Admin: 11/21/18 21:45 Dose: 5,000 units Dextrose (Dextrose 5% In Water 1000 Ml) 1,000 mls @ 0 mls/hr IV .Q0M PRN; Protocol PRN Reason: Hypoglycemia Protocol Ciprofloxacin (Cipro 400mg/200ml Dsw) 400 mg in 200 mls @ 133 mls/hr IVPB Q12H [facility]; Protocol Last Admin: 11/21/18 14:30 Dose: 133 mls/hr Vancomycin HCl 750 mg/ Sodium (Chloride) 250 mls @ 166.6 mls/hr IVPB Q12H [facility]; Protocol Last Admin: 11/21/18 12:27 Dose: 166.6 mls/hr Insulin Aspart (Novolog) 0 unit SC ACHS [facility] Last Admin: 11/21/18 21:45 Dose: Not Given Insulin Aspart (Novolog) 8 unit SC AC [facility] Last Admin: 11/21/18 17:46 Dose: 8 u Insulin Glargine (Lantus) 20 unit SC HS [facility] Last Admin: 11/21/18 21:43 Dose: 20 units Isosorbide Mononitrate (Imdur Er) 30 mg PO DAILY [facility] Last Admin: 11/21/18 09:22 Dose: 30 mg Metoprolol Tartrate (Lopressor) 25 mg PO ACBD [facility] Last Admin: 11/21/18 17:45 Dose: 25 mg Ondansetron HCl (Zofran Inj) 4 mg IVP Q4 PRN PRN Reason: Nausea/Vomiting Last Admin: 11/21/18 09:34 Dose: 4 mg - Labs Labs: 11/21/18 07:09 11/21/18 07:09 - Constitutional Appears: No Acute Distress, Chronically Ill - Head Exam Head Exam: NORMAL INSPECTION - Eye Exam Eye Exam: Normal appearance - ENT Exam ENT Exam: Normal Exam - Neck Exam Neck Exam: Normal Inspection - Respiratory Exam Respiratory Exam: Rhonchi - Cardiovascular Exam Cardiovascular Exam: REGULAR RHYTHM - GI/Abdominal Exam GI & Abdominal Exam: Soft, Normal Bowel Sounds - Rectal Exam Rectal Exam: Deferred - Exam Exam: NORMAL INSPECTION - Extremities Exam Extremities Exam: Normal Inspection - Back Exam Back Exam: NORMAL INSPECTION - Neurological Exam Neurological Exam: Alert, Awake, Oriented x3 - Psychiatric Exam Psychiatric exam: Anxious - Skin Skin Exam: Dry, Erythema, Intact, Warm Assessment and Plan (1) DKA (diabetic ketoacidoses) Status: Resolved (2) Acute exacerbation of chronic low back pain Status: Acute (3) Sepsis syndrome Assessment & Plan: CT scan revealed bilateral pneumonia, probably from aspiration due to vomiting. On IV Cipro. Status: Acute
[2018-11-22] MEDS: Ciprofloxacin 400mg/200ml D5W 400 MG/200 ML BAG IVPB SCH ×2 (04:37→14:39)
[2018-11-22 07:08] LABS: BASO # 0.1 K/uL (0.0-0.2); BASO % 0.4 % (0.0-2.0); EOS % 0.1 % (0.0-4.0); HEMOGLOBIN 12.6 g/dL (11.0-16.0); LYMPH % 5.3 % (20.0-40.0); MEAN CELL VOLUME 93.9 fL (81.0-99.0); MEAN CORPUSCULAR HEMOGLOBIN 31.1 pg (27.0-31.0); MEAN CORPUSCULAR HGB CONC 33.1 g/dL (33.0-37.0); MEAN PLATELET VOLUME 11.9 fL (7.2-11.7); MONO # 5.6 K/uL (0.0-0.8); MONO % 28.7 % (0.0-10.0); NEUT # 12.9 K/uL (1.8-7.0); NEUT % 65.5 % (50.0-75.0); RBC 4.06 Mil/uL (3.80-5.20); RED CELL DISTRIBUTION WIDTH 13.8 % (11.5-14.5); WHITE BLOOD COUNT 19.6 K/uL (4.8-10.8)
[2018-11-22 07:32] LABS: PLATELET COUNT 90 K/uL (130-400)
[2018-11-22 07:43] LABS: ALB/GLOB RATIO 0.9 (1.0-2.1); ALBUMIN 2.4 g/dL (3.5-5.0); ALT/SGPT 22 U/L (9-52); AST/SGOT 17 U/L (14-36); BLOOD UREA NITROGEN 11 mg/dL (7-17); CALCIUM 8.5 mg/dl (8.6-10.4); GFR NON-AFRICAN AMERICAN > 60
[2018-11-22] MEDS: (Novolog) Insulin Aspart, Recombinant 100 u/ml 10 ml vial SC SCH ×7 (08:11→22:48)
[2018-11-22 08:51] LABS: BANDS 6 % (0-2); LYMPHOCYTE 5 % (20-40); MONOCYTE 32 % (0-10); NEUTROPHIL 57 % (50-75); TOTAL CELLS COUNTED 100
[2018-11-22 08:52] LABS: PLATELET ESTIMATE DECREASED (NORMAL)
--- NOTE | 2018-11-22 14:49 | PN ---
DATE: 11/22/2018 LOCATION: Room 654. SUBJECTIVE: This is a 68-year-old female with recent uncontrolled type 2 insulin-requiring diabetes presenting here with diabetic ketoacidosis and dehydration and then since then improved clinically and metabolically as noted thereof. Her glycemic levels overnight have ranged mg/dL. LABORATORY DATA: Her chemistries showed a BUN of 11, sodium 132, potassium 3.7, chloride 103, CO2 of 24, glucose 219, and creatinine is 0.6. PLAN OF MANAGEMENT: So at this time, we will modify her basal insulin and will increase the Lantus to 24 units subcu at bedtime daily to start tonight. We will also continue the same prandial insulin with Novolog given as 8 units t.i.d. before meals as ordered. We will obtain serial chemistries and supplement accordingly as needed. We will follow. Elly Hannah MD
[2018-11-22] MEDS: Pantoprazole 40 mg EC Tab PO SCH (17:45)
[2018-11-22] MEDS ORDERED: (Lantus) Insulin Glargine, Recombinant SC SCH (22:00)
--- NOTE | 2018-11-22 22:53 | CP.PCM.PN ---
Subjective - Date & Time of Evaluation Date of Evaluation: 11/22/18 Time of Evaluation: 22:53 - Subjective Subjective: CHIEF COMPLAINTS TODAY : AFEBRILE VSS +ve COUGH productive +VE BACKACHE ROS. HEENT : N. Resp : +VE cough, NO wheezing ,pleuritic CP ,or hemoptysis Cardio : No anginal CP, PND, orthopnea, palpitation GI : +VE EPIGASTRIC PAIN , AND NAUSEA . NO diarrhea or GI bleeding . 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 Musculoskel : No joint swelling , Derm : No rash Psych : Normal affect. Ext : No swelling ,calf pain PE. Pt. is alert awake in no distress. V.S As noted in the chart Head ,ear nose,throat and eyes : Normal. Neck : Supple with normal carotids. Lungs: B/L RHONCHI Heart : S1 & S2 normal with S4. No murmur. Abd : SOFT, MILD TENDERNESS EPIGASTRIUM with normal bowel sounds. Neuro : Moves all ext. with no localized deficit. Ext : No edema with intact pulses.Non tender calves Derm : No rashes or decubitus ulcer. LABS/RADIOLOGY: REVIEWED. VANCO TROUGH 7.8 LOW 11/22/18 WBC 15.0 CREAT 0.5/BUN 14 SPUTUM +VE STAPH AUREUS S - CIPRO,MSSA URINE CULTURE +VE BETA HAEMOLYTIC STREP . GROUP B S- AMPICILLIN, VANCOMYCIN. 11/21/18 CT CHEST W/O CONTRAST-multifocal tree-in-bud opacities RML,KATRHIK, lingul ar. Nodular airspace disease in the lingula and more patchy airspace disease LLL -bronchiolitis/bronchopneumonia. CONFLUENT AIRSPACE DISEASE RLL ? PNEUMONIA VERSUS ATELECTASIS. Moderate right/and small left pleural effusion. Objective - Vital Signs/Intake and Output Vital Signs (last 24 hours): Temp Pulse Resp BP Pulse Ox 98.1 F 72 20 146/75 95 11/22/18 17:00 11/22/18 17:00 11/22/18 17:00 11/22/18 17:45 11/22/18 17:00 - Medications Medications: Current Medications Albuterol Sulfate (Albuterol 0.083% Inhal Shannan (2.5 Mg/3 Ml) Ud) 2.5 mg INH RQ6 PRN PRN Reason: Wheezing Dextrose (Dextrose 50% Inj) 0 ml IV STAT PRN; Protocol PRN Reason: Hypoglycemia Protocol Dextrose (Glutose 15) 0 gm PO ONCE PRN; Protocol PRN Reason: Hypoglycemia Protocol Docusate Sodium (Colace) 100 mg PO BID [facility] Last Admin: 11/22/18 17:45 Dose: 100 mg Glucagon (Glucagen Diagnostic Kit) 0 mg IM STAT PRN; Protocol PRN Reason: Hypoglycemia Protocol Guaifenesin/Dextromethorphan (Robitussin Dm) 5 ml PO Q4H PRN PRN Reason: Cough Last Admin: 11/21/18 06:48 Dose: 5 ml Heparin Sodium (Porcine) (Heparin) 5,000 units SC Q12 [facility] Last Admin: 11/22/18 22:17 Dose: 5,000 units Dextrose (Dextrose 5% In Water 1000 Ml) 1,000 mls @ 0 mls/hr IV .Q0M PRN; Protocol PRN Reason: Hypoglycemia Protocol Ciprofloxacin (Cipro 400mg/200ml Dsw) 400 mg in 200 mls @ 133 mls/hr IVPB Q12H [facility]; Protocol Last Admin: 11/22/18 14:39 Dose: 133 mls/hr Vancomycin HCl 1,000 mg/ (Sodium Chloride) 250 mls @ 166.6 mls/hr IVPB Q12H [facility]; Protocol Insulin Aspart (Novolog) 0 unit SC ACHS [facility] Last Admin: 11/22/18 22:48 Dose: Not Given Insulin Aspart (Novolog) 8 unit SC AC [facility] Last Admin: 11/22/18 17:45 Dose: 8 u Insulin Glargine (Lantus) 24 unit SC HS [facility] Last Admin: 11/22/18 22:17 Dose: 24 unit Isosorbide Mononitrate (Imdur Er) 30 mg PO DAILY [facility] Last Admin: 11/22/18 09:41 Dose: 30 mg Metoprolol Tartrate (Lopressor) 25 mg PO ACBD [facility] Last Admin: 11/22/18 17:45 Dose: 25 mg Ondansetron HCl (Zofran Inj) 4 mg IVP Q4 PRN PRN Reason: Nausea/Vomiting Last Admin: 11/21/18 09:34 Dose: 4 mg Pantoprazole Sodium (Protonix Ec Tab) 40 mg PO DAILY [facility] Last Admin: 11/22/18 17:45 Dose: 40 mg Tramadol HCl (Ultram) 50 mg PO TID PRN PRN Reason: Pain, moderate (4-7) Last Admin: 11/22/18 17:45 Dose: 50 mg - Labs Labs: 11/22/18 07:02 11/22/18 07:02 Assessment and Plan (1) Bilateral bronchopneumonia Status: Acute (2) Sepsis syndrome Status: Acute (3) DKA (diabetic ketoacidoses) Status: Resolved (4) Abdominal pain Status: Acute (5) Insulin dependent diabetes mellitus Status: Chronic (6) Hypertension Status: Chronic - Assessment and Plan (Free Text) Plan: CONTINUE CIPRO 400 MG iv PIGGYBACK EVERY 12 HOURLY 11/18/18. INCREASE IV VANCOMYCIN 1000 MG IVPB Q 12HRLY 11/20 F/U VANCO TROUGH PRIOR TO 4TH DOSE AND KEEP BETWEEN 10-20MG/ML . TB W/U IN PROGRESS (ABNORMAL CT CHEST ) SPUTUM FOR AFB DAILY MORNING SPECIMEN X3. PRIVATE ROOM/ [employer] PRECAUTIONS FOR THE PATIENT FOR NOW.
--- NOTE | 2018-11-22 23:52 | CP.PCM.PN ---
Subjective - Date & Time of Evaluation Date of Evaluation: 11/22/18 Time of Evaluation: 17:00 - Subjective Subjective: Patient still with a productive cough and right rib pain and low back pain. Afebrile. Blood glucose better controlled. Appetite better. Objective - Vital Signs/Intake and Output Vital Signs (last 24 hours): Temp Pulse Resp BP Pulse Ox 98.1 F 72 20 146/75 95 11/22/18 17:00 11/22/18 17:00 11/22/18 17:00 11/22/18 17:45 11/22/18 17:00 Intake and Output: 11/22/18 11/23/18 18:59 06:59 Intake Total 680 Balance 680 - Medications Medications: Current Medications Albuterol Sulfate (Albuterol 0.083% Inhal Shannan (2.5 Mg/3 Ml) Ud) 2.5 mg INH RQ6 PRN PRN Reason: Wheezing Dextrose (Dextrose 50% Inj) 0 ml IV STAT PRN; Protocol PRN Reason: Hypoglycemia Protocol Dextrose (Glutose 15) 0 gm PO ONCE PRN; Protocol PRN Reason: Hypoglycemia Protocol Docusate Sodium (Colace) 100 mg PO BID [facility] Last Admin: 11/22/18 17:45 Dose: 100 mg Glucagon (Glucagen Diagnostic Kit) 0 mg IM STAT PRN; Protocol PRN Reason: Hypoglycemia Protocol Guaifenesin/Dextromethorphan (Robitussin Dm) 5 ml PO Q4H PRN PRN Reason: Cough Last Admin: 11/21/18 06:48 Dose: 5 ml Heparin Sodium (Porcine) (Heparin) 5,000 units SC Q12 [facility] Last Admin: 11/22/18 22:17 Dose: 5,000 units Dextrose (Dextrose 5% In Water 1000 Ml) 1,000 mls @ 0 mls/hr IV .Q0M PRN; Protocol PRN Reason: Hypoglycemia Protocol Ciprofloxacin (Cipro 400mg/200ml Dsw) 400 mg in 200 mls @ 133 mls/hr IVPB Q12H [facility]; Protocol Last Admin: 11/22/18 14:39 Dose: 133 mls/hr Vancomycin/Sodium Chloride (Vancomycin 1 Gm/Ns 200 Ml) 1 gm in 200 mls @ 133.333 mls/hr IVPB Q12H [facility]; Protocol Insulin Aspart (Novolog) 0 unit SC ACHS [facility] Last Admin: 11/22/18 22:48 Dose: Not Given Insulin Aspart (Novolog) 8 unit SC AC [facility] Last Admin: 11/22/18 17:45 Dose: 8 u Insulin Glargine (Lantus) 24 unit SC [facility] Last Admin: 11/22/18 22:17 Dose: 24 unit Isosorbide Mononitrate (Imdur Er) 30 mg PO DAILY [facility] Last Admin: 11/22/18 09:41 Dose: 30 mg Metoprolol Tartrate (Lopressor) 25 mg PO ACBD [facility] Last Admin: 11/22/18 17:45 Dose: 25 mg Ondansetron HCl (Zofran Inj) 4 mg IVP Q4 PRN PRN Reason: Nausea/Vomiting Last Admin: 11/21/18 09:34 Dose: 4 mg Pantoprazole Sodium (Protonix Ec Tab) 40 mg PO DAILY [facility] Last Admin: 11/22/18 17:45 Dose: 40 mg Tramadol HCl (Ultram) 50 mg PO TID PRN PRN Reason: Pain, moderate (4-7) Last Admin: 11/22/18 17:45 Dose: 50 mg - Labs Labs: 11/22/18 07:02 11/22/18 07:02 - Constitutional Appears: No Acute Distress, Chronically Ill - Head Exam Head Exam: NORMOCEPHALIC - Eye Exam Eye Exam: Normal appearance - ENT Exam ENT Exam: Normal Exam - Neck Exam Neck Exam: Normal Inspection - Respiratory Exam Respiratory Exam: Rhonchi Additional comments: Rhonchi heard bilaterally. - Cardiovascular Exam Cardiovascular Exam: REGULAR RHYTHM - GI/Abdominal Exam GI & Abdominal Exam: Soft, Normal Bowel Sounds - Rectal Exam Rectal Exam: Deferred - Extremities Exam Extremities Exam: Normal Inspection - Back Exam Back Exam: tenderness - Neurological Exam Neurological Exam: Alert, Awake, Oriented x3 - Psychiatric Exam Psychiatric exam: Anxious - Skin Skin Exam: Dry, Normal Color, Urticaria, Warm Assessment and Plan (1) DKA (diabetic ketoacidoses) Status: Resolved (2) Acute exacerbation of chronic low back pain Status: Acute (3) Sepsis syndrome Status: Acute (4) Bilateral bronchopneumonia Assessment & Plan: On IV Cipro and Vancomycin. Status: Acute
[2018-11-23] MEDS: Vancomycin 1 gm/NS 200 ml 1 GM/200 ML BAG IVPB SCH ×2 (00:37→12:17)
[2018-11-23] MEDS: Ciprofloxacin 400mg/200ml D5W 400 MG/200 ML BAG IVPB SCH (03:05)
[2018-11-23 07:01] LABS: ALB/GLOB RATIO 0.9 (1.0-2.1); ALBUMIN 2.5 g/dL (3.5-5.0); ALT/SGPT 22 U/L (9-52); AST/SGOT 15 U/L (14-36); BLOOD UREA NITROGEN 9 mg/dL (7-17); CALCIUM 8.8 mg/dl (8.6-10.4); GFR NON-AFRICAN AMERICAN > 60
[2018-11-23 07:11] LABS: BASO % 0.1 % (0.0-2.0); EOS # 0.1 K/uL (0.0-0.7); EOS % 0.2 % (0.0-4.0); HEMOGLOBIN 12.8 g/dL (11.0-16.0); LYMPH # 1.1 K/uL (1.0-4.3); MEAN CELL VOLUME 93.9 fL (81.0-99.0); MEAN CORPUSCULAR HEMOGLOBIN 31.2 pg (27.0-31.0); MEAN CORPUSCULAR HGB CONC 33.3 g/dL (33.0-37.0); MEAN PLATELET VOLUME 11.5 fL (7.2-11.7); MONO # 8.8 K/uL (0.0-0.8); MONO % 40.3 % (0.0-10.0); NEUT # 11.9 K/uL (1.8-7.0); NEUT % 54.4 % (50.0-75.0); PLATELET COUNT 121 K/uL (130-400); RBC 4.11 Mil/uL (3.80-5.20); RED CELL DISTRIBUTION WIDTH 14.1 % (11.5-14.5); WHITE BLOOD COUNT 21.9 K/uL (4.8-10.8)
[2018-11-23] MEDS: (Novolog) Insulin Aspart, Recombinant 100 u/ml 10 ml vial SC SCH ×7 (08:00→21:13)
[2018-11-23 08:13] LABS: BANDS 3 % (0-2); EOSINOPHIL 1 % (0-4); LYMPHOCYTE 3 % (20-40); MONOCYTE 37 % (0-10); NEUTROPHIL 56 % (50-75); PLATELET ESTIMATE SLIGHTLY DECREASED (NORMAL); TOTAL CELLS COUNTED 100
[2018-11-23 08:14] LABS: LARGE PLATELETS PRESENT
[2018-11-23] MEDS: Pantoprazole 40 mg EC Tab PO SCH (09:35)
--- NOTE | 2018-11-23 10:21 | PN ---
DATE: 11/20/2018 ENDOCRINOLOGY FOLLOWUP NOTE LOCATION: Room 356. SUBJECTIVE: This is a 68-year-old female with recent uncontrolled type 2 insulin-requiring diabetes, presenting here with diabetic ketoacidosis and dehydration and has since then improved clinically and metabolically as noted thereof. She received vigorous IV hydration, and intensive insulin therapy in the intensive care unit was given. Her glycemic levels are fluctuating but improved overnight and have ranged from 182 to 248 mg/dL. It dropped down to 74 at lunchtime today with a variability of her oral intake as noted. LABORATORY DATA: Her chemistry shows a BUN of 26, sodium 134, potassium 4.2, chloride 109, CO2 of 19, glucose 195 and creatinine 0.6. PLAN OF MANAGEMENT: So at this time, we will continue the IV hydration as given with potassium supplementation as ordered. We will also continue the same basal and bolus insulin regimen with Lantus given as 24 units subcu at bedtime daily as ordered. We will lower the Novolog down from 12 units to 8 units t.i.d. before meals to start at dinner time today as ordered. We will obtain serial chemistries and supplement accordingly as needed. We will continue also the low-dose correction scale using Novolog insulin as given to obviate hypoglycemia. We will follow. Elly Hannah MD
--- NOTE | 2018-11-23 11:19 | CP.PCM.PN ---
Subjective - Date & Time of Evaluation Date of Evaluation: 11/23/18 Time of Evaluation: : - Subjective Subjective: CHIEF COMPLAINTS TODAY : AFEBRILE, no new complaints tolerating iv abx ROS. HEENT : N. Resp : +VE cough, NO wheezing ,pleuritic CP ,or hemoptysis Cardio : No anginal CP, PND, orthopnea, palpitation GI : +VE EPIGASTRIC PAIN , AND NAUSEA . NO diarrhea or GI bleeding . MANAGER EDUCATION : No headache, vertigo, focal deficit. Musculoskel : No joint swelling , Derm : No rash Psych : Normal affect. Ext : No swelling ,calf pain PE. Pt. is alert awake in no distress. V.S As noted in the chart Head ,ear nose,throat and eyes : Normal. Neck : Supple with normal carotids. Lungs: B/L RHONCHI Heart : S1 & S2 normal with S4. No murmur. Abd : SOFT, MILD TENDERNESS EPIGASTRIUM with normal bowel sounds. Neuro : Moves all ext. with no localized deficit. Ext : No edema with intact pulses.Non tender calves Derm : No rashes or decubitus ulcer. LABS/RADIOLOGY: REVIEWED. VANCO TROUGH 7.8 LOW 11/22/18 wbc 21.3 high SPUTUM +VE STAPH AUREUS S - CIPRO,MSSA URINE CULTURE +VE BETA HAEMOLYTIC STREP . GROUP B S- AMPICILLIN, VANCOMYCIN. 11/21/18 CT CHEST W/O CONTRAST-multifocal tree-in-bud opacities RML,KARTHIK, lingular. Nodular airspace disease in the lingula and more patchy airspace disease LLL -bronchiolitis/bronchopneumonia. CONFLUENT AIRSPACE DISEASE RLL ? PNEUMONIA VERSUS ATELECTASIS. Moderate right/and small left pleural effusion. Objective - Vital Signs/Intake and Output Vital Signs (last 24 hours): Temp Pulse Resp BP Pulse Ox 98.8 F 90 20 160/80 H 97 11/23/18 07:00 11/23/18 07:00 11/23/18 07:00 11/23/18 08:11 11/23/18 07:00 Intake and Output: 11/23/18 11/23/18 06:59 18:59 Intake Total 1080 Output Total 950 Balance 130 - Medications Medications: Current Medications Albuterol Sulfate (Albuterol 0.083% Inhal Shannan (2.5 Mg/3 Ml) Ud) 2.5 mg INH RQ6 PRN PRN Reason: Wheezing Dextrose (Dextrose 50% Inj) 0 ml IV STAT PRN; Protocol PRN Reason: Hypoglycemia Protocol Dextrose (Glutose 15) 0 gm PO ONCE PRN; Protocol PRN Reason: Hypoglycemia Protocol Docusate Sodium (Colace) 100 mg PO BID [facility] Last Admin: 11/23/18 09:35 Dose: 100 mg Glucagon (Glucagen Diagnostic Kit) 0 mg IM STAT PRN; Protocol PRN Reason: Hypoglycemia Protocol Guaifenesin/Dextromethorphan (Robitussin Dm) 5 ml PO Q4H PRN PRN Reason: Cough Last Admin: 11/21/18 06:48 Dose: 5 ml Heparin Sodium (Porcine) (Heparin) 5,000 units SC Q12 [facility] Last Admin: 11/23/18 09:35 Dose: 5,000 units Dextrose (Dextrose 5% In Water 1000 Ml) 1,000 mls @ 0 mls/hr IV .Q0M PRN; Protocol PRN Reason: Hypoglycemia Protocol Vancomycin/Sodium Chloride (Vancomycin 1 Gm/Ns 200 Ml) 1 gm in 200 mls @ 133.333 mls/hr IVPB Q12H [facility]; Protocol Last Admin: 11/23/18 00:37 Dose: 133.333 mls/hr Insulin Aspart (Novolog) 0 unit SC ACHS [facility] Last Admin: 11/23/18 08:00 Dose: Not Given Insulin Aspart (Novolog) 8 unit SC AC [facility] Last Admin: 11/23/18 08:12 Dose: 8 u Insulin Glargine (Lantus) 24 unit SC HS [facility] Last Admin: 11/22/18 22:17 Dose: 24 unit Isosorbide Mononitrate (Imdur Er) 30 mg PO DAILY [facility] Last Admin: 11/23/18 09:37 Dose: 30 mg Metoprolol Tartrate (Lopressor) 25 mg PO ACBD [facility] Last Admin: 11/23/18 08:11 Dose: 25 mg Ondansetron HCl (Zofran Inj) 4 mg IVP Q4 PRN PRN Reason: Nausea/Vomiting Last Admin: 11/21/18 09:34 Dose: 4 mg Pantoprazole Sodium (Protonix Ec Tab) 40 mg PO DAILY [facility] Last Admin: 11/23/18 09:35 Dose: 40 mg Tramadol HCl (Ultram) 50 mg PO TID PRN PRN Reason: Pain, moderate (4-7) Last Admin: 11/23/18 08:11 Dose: 50 mg - Labs Labs: 11/23/18 06:43 11/23/18 06:43 Assessment and Plan (1) Bilateral bronchopneumonia Status: Acute (2) Sepsis syndrome Status: Acute (3) DKA (diabetic ketoacidoses) Status: Resolved (4) Abdominal pain Status: Acute (5) Insulin dependent diabetes mellitus Status: Chronic (6) Hypertension Status: Chronic - Assessment and Plan (Free Text) Plan: CONTINUE CIPRO 400 MG iv PIGGYBACK EVERY 12 HOURLY 11/18/18. INCREASE IV VANCOMYCIN 1000 MG IVPB Q 12HRLY 11/20 F/U VANCO TROUGH PRIOR TO 4TH DOSE AND KEEP BETWEEN 10-20MG/ML . TB W/U IN PROGRESS (ABNORMAL CT CHEST ) SPUTUM FOR AFB DAILY MORNING SPECIMEN X3. PRIVATE ROOM/ AIRBORNE PRECAUTIONS FOR THE PATIENT FOR NOW.
--- NOTE | 2018-11-23 14:45 | RAD ---
Date of service: 11/23/2018 PROCEDURE: Radiographs of the Chest and Right Ribs. HISTORY: right rib pain COMPARISON: None available. TECHNIQUE: Frontal radiograph of the chest and multiple oblique radiographs of the right ribs were obtained. FINDINGS: RIGHT RIBS: No fracture or focal lesion visualized. LUNGS: Clear. PLEURA: Moderate right pleural effusion. No left pleural effusion. No pneumothorax. CARDIOVASCULAR: Normal cardiac size. No pulmonary vascular congestion. There is atherosclerotic calcification of the thoracic aortic arch. OTHER FINDINGS: None. IMPRESSION: Moderate right pleural effusion. No evidence of rib fracture
[2018-11-23] MEDS: (Lantus) Insulin Glargine, Recombinant SC SCH (22:41)
--- NOTE | 2018-11-24 00:28 | CP.PCM.PN ---
Subjective - Date & Time of Evaluation Date of Evaluation: 11/23/18 Time of Evaluation: 19:00 - Subjective Subjective: Patient still with a productive cough, and pain of the right ribs. Right rib Xray showed no rib fracture. Objective - Vital Signs/Intake and Output Vital Signs (last 24 hours): Temp Pulse Resp BP Pulse Ox 98.3 F 89 20 122/63 97 11/23/18 15:59 11/23/18 15:59 11/23/18 15:59 11/23/18 17:43 11/23/18 15:59 Intake and Output: 11/23/18 11/24/18 18:59 06:59 Intake Total 250 Output Total 300 Balance -50 - Medications Medications: Current Medications Albuterol Sulfate (Albuterol 0.083% Inhal Shannan (2.5 Mg/3 Ml) Ud) 2.5 mg INH RQ6 PRN PRN Reason: Wheezing Dextrose (Dextrose 50% Inj) 0 ml IV STAT PRN; Protocol PRN Reason: Hypoglycemia Protocol Dextrose (Glutose 15) 0 gm PO ONCE PRN; Protocol PRN Reason: Hypoglycemia Protocol Docusate Sodium (Colace) 100 mg PO BID [facility] Last Admin: 11/23/18 17:43 Dose: 100 mg Glucagon (Glucagen Diagnostic Kit) 0 mg IM STAT PRN; Protocol PRN Reason: Hypoglycemia Protocol Guaifenesin/Dextromethorphan (Robitussin Dm) 5 ml PO Q4H PRN PRN Reason: Cough Last Admin: 11/21/18 06:48 Dose: 5 ml Vancomycin/Sodium Chloride (Vancomycin 1 Gm/Ns 200 Ml) 1 gm in 200 mls @ 133.333 mls/hr IVPB Q12H [facility]; Protocol Last Admin: 11/23/18 12:17 Dose: 133.333 mls/hr Insulin Aspart (Novolog) 0 unit SC ACHS [facility] Last Admin: 11/23/18 21:13 Dose: Not Given Insulin Aspart (Novolog) 8 unit SC AC [facility] Last Admin: 11/23/18 17:43 Dose: 8 u Insulin Glargine (Lantus) 30 unit SC HS [facility] Last Admin: 11/23/18 22:41 Dose: 30 unit Isosorbide Mononitrate (Imdur Er) 30 mg PO DAILY [facility] Last Admin: 11/23/18 09:37 Dose: 30 mg Metoprolol Tartrate (Lopressor) 25 mg PO ACBD [facility] Last Admin: 11/23/18 17:43 Dose: 25 mg Ondansetron HCl (Zofran Inj) 4 mg IVP Q4 PRN PRN Reason: Nausea/Vomiting Last Admin: 11/21/18 09:34 Dose: 4 mg Pantoprazole Sodium (Protonix Ec Tab) 40 mg PO DAILY [facility] Last Admin: 11/23/18 09:35 Dose: 40 mg Tramadol HCl (Ultram) 50 mg PO TID PRN PRN Reason: Pain, moderate (4-7) Last Admin: 11/23/18 08:11 Dose: 50 mg - Labs Labs: 11/23/18 06:43 11/23/18 06:43 - Constitutional Appears: No Acute Distress, Chronically Ill - Head Exam Head Exam: NORMOCEPHALIC - Eye Exam Eye Exam: Normal appearance - ENT Exam ENT Exam: Normal Exam - Neck Exam Neck Exam: Normal Inspection - Respiratory Exam Respiratory Exam: Rhonchi - GI/Abdominal Exam GI & Abdominal Exam: Soft, Normal Bowel Sounds - Rectal Exam Rectal Exam: Deferred - Extremities Exam Extremities Exam: Normal Inspection - Back Exam Back Exam: vertebral tenderness - Neurological Exam Neurological Exam: Alert, Awake, Oriented x3 - Psychiatric Exam Psychiatric exam: Anxious - Skin Skin Exam: Dry, Intact, Warm Assessment and Plan (1) DKA (diabetic ketoacidoses) Status: Resolved (2) Acute exacerbation of chronic low back pain Status: Chronic (3) Sepsis syndrome Status: Acute (4) Bilateral bronchopneumonia Assessment & Plan: On IV antibiotics. Status: Acute
[2018-11-24] MEDS: Vancomycin 1 gm/NS 200 ml 1 GM/200 ML BAG IVPB SCH ×2 (00:57→12:47)
--- NOTE | 2018-11-24 07:03 | PN ---
DATE: 11/23/2018 LOCATION: In room 654. SUBJECTIVE: This is a 68-year-old female with recent uncontrolled type 2 insulin requiring diabetes, now being followed closely for metabolic management. Her glycemic levels are fluctuating with the variability of her oral intake as noted. Her glucose values have ranged from 126 to 235 and 169 mg/dL. LABORATORY DATA: Her chemistry showed BUN of 9, sodium 132, potassium 3.7, chloride 99, CO2 of 27, glucose 225, and creatinine 0.7. ASSESSMENT AND PLAN: So, at this time, we will continue the same basal and bolus insulin regimen to allow for dose equilibration and keep her on Lantus given as 24 units subcu at bedtime daily as given. We will continue the Novolog given as 8 units three times a day before meals as ordered. If her oral intake improves, then we will titrate the dose regimen of much higher dosing as medicated. She was actually taking a much higher dose at home because of the markedly improved oral intake as noted. We will obtain serial chemistries and supplement accordingly as needed. We will follow. Elly Hannah MD
[2018-11-24] MEDS: (Novolog) Insulin Aspart, Recombinant 100 u/ml 10 ml vial SC SCH ×7 (08:11→23:01)
[2018-11-24] MEDS: Pantoprazole 40 mg EC Tab PO SCH (10:27)
--- NOTE | 2018-11-24 20:03 | CP.PCM.PN ---
Subjective - Date & Time of Evaluation Date of Evaluation: 11/24/18 Time of Evaluation: 20:03 - Subjective Subjective: CHIEF COMPLAINTS TODAY : AFEBRILE, C/O RT. SIDED PLEURITIC PAIN ON COUGHING PRODUCTIVE COUGH. STATES SHE GOT BCG IN THE PAST. TACHY/AND CONGESTED ROS. HEENT : N. Resp : +VE cough, NO wheezing ,pleuritic CP ,or hemoptysis Cardio : No anginal CP, PND, orthopnea, palpitation GI : +VE EPIGASTRIC PAIN , AND NAUSEA . NO diarrhea or GI bleeding . TUB TENDER : No headache, vertigo, focal deficit. Musculoskel : No joint swelling , Derm : No rash Psych : Normal affect. Ext : No swelling ,calf pain PE. Pt. is alert awake in no distress. V.S As noted in the chart Head ,ear nose,throat and eyes : Normal. Neck : Supple with normal carotids. Lungs: B/L RHONCHI Heart : S1 & S2 REGULAR., SINUS TACHCARDIA HIM, No murmur. Abd : SOFT, MILD TENDERNESS EPIGASTRIUM with normal bowel sounds. Neuro : Moves all ext. with no localized deficit. Ext : No edema with intact pulses.Non tender calves Derm : No rashes or decubitus ulcer. LABS/RADIOLOGY: REVIEWED. SPUTUM 11/23/18 -VE SMEAR FOR AFB VANCO TROUGH 7.8 LOW 11/22/18 wbc 21.3 high SPUTUM +VE STAPH AUREUS S - CIPRO,MSSA URINE CULTURE +VE BETA HAEMOLYTIC STREP . GROUP B S- AMPICILLIN, VANCOMYCIN. Objective - Vital Signs/Intake and Output Vital Signs (last 24 hours): Temp Pulse Resp BP Pulse Ox 97.5 F L 105 H 20 90/52 L 95 11/24/18 16:00 11/24/18 16:00 11/24/18 16:00 11/24/18 16:23 11/24/18 16:00 - Medications Medications: Current Medications Albuterol Sulfate (Albuterol 0.083% Inhal Shannan (2.5 Mg/3 Ml) Ud) 2.5 mg INH RQ6 PRN PRN Reason: Wheezing Dextrose (Dextrose 50% Inj) 0 ml IV STAT PRN; Protocol PRN Reason: Hypoglycemia Protocol Dextrose (Glutose 15) 0 gm PO ONCE PRN; Protocol PRN Reason: Hypoglycemia Protocol Docusate Sodium (Colace) 100 mg PO BID [facility] Last Admin: 11/24/18 17:49 Dose: 100 mg Glucagon (Glucagen Diagnostic Kit) 0 mg IM STAT PRN; Protocol PRN Reason: Hypoglycemia Protocol Guaifenesin/Dextromethorphan (Robitussin Dm) 5 ml PO Q4H PRN PRN Reason: Cough Last Admin: 11/21/18 06:48 Dose: 5 ml Vancomycin/Sodium Chloride (Vancomycin 1 Gm/Ns 200 Ml) 1 gm in 200 mls @ 133.333 mls/hr IVPB Q12H [facility]; Protocol Last Admin: 11/24/18 12:47 Dose: 133.333 mls/hr Insulin Aspart (Novolog) 0 unit SC ACHS [facility] Last Admin: 11/24/18 17:44 Dose: Not Given Insulin Aspart (Novolog) 8 unit SC AC [facility] Last Admin: 11/24/18 17:49 Dose: 8 u Insulin Glargine (Lantus) 30 unit SC HS [facility] Last Admin: 11/23/18 22:41 Dose: 30 unit Isosorbide Mononitrate (Imdur Er) 30 mg PO DAILY [facility] Last Admin: 11/24/18 10:27 Dose: 30 mg Metoprolol Tartrate (Lopressor) 25 mg PO ACBD [facility] Last Admin: 11/24/18 16:23 Dose: Not Given Ondansetron HCl (Zofran Inj) 4 mg IVP Q4 PRN PRN Reason: Nausea/Vomiting Last Admin: 11/21/18 09:34 Dose: 4 mg Pantoprazole Sodium (Protonix Ec Tab) 40 mg PO DAILY [facility] Last Admin: 11/24/18 10:27 Dose: 40 mg Tramadol HCl (Ultram) 50 mg PO TID PRN PRN Reason: Pain, moderate (4-7) Last Admin: 11/24/18 17:48 Dose: 50 mg - Labs Labs: 11/23/18 06:43 11/23/18 06:43 Assessment and Plan (1) Bilateral bronchopneumonia Status: Acute (2) Sepsis syndrome Status: Acute (3) DKA (diabetic ketoacidoses) Status: Resolved (4) Abdominal pain Status: Acute (5) Insulin dependent diabetes mellitus Status: Chronic (6) Hypertension Status: Chronic - Assessment and Plan (Free Text) Plan: CONTINUE CIPRO 400 MG iv PIGGYBACK EVERY 12 HOURLY 11/18/18. CONTINUE IV VANCOMYCIN 1000 MG IVPB Q 12HRLY 11/20 F/U VANCO TROUGH PRIOR TO 4TH DOSE AND KEEP BETWEEN 10-20MG/ML . TB W/U IN PROGRESS (ABNORMAL CT CHEST ) SPUTUM FOR AFB DAILY MORNING SPECIMEN X3. PT ON RESPIRATORY TREATMENTS. PRIVATE ROOM/ AIRBOR[place] PRECAUTIONS FOR THE PATIENT FOR NOW.
[2018-11-24] MEDS: Ciprofloxacin 400mg/200ml D5W 400 MG/200 ML BAG IVPB SCH (21:10)
[2018-11-24] MEDS: (Lantus) Insulin Glargine, Recombinant SC SCH (23:42)
[2018-11-25] MEDS: Vancomycin 1 gm/NS 200 ml 1 GM/200 ML BAG IVPB SCH ×2 (01:11→13:08)
--- NOTE | 2018-11-25 02:17 | CP.PCM.PN ---
Subjective - Date & Time of Evaluation Date of Evaluation: 11/24/18 Time of Evaluation: 19:00 - Subjective Subjective: Patient still with a productive cough, right rib pain, low back pain. Afebrile Objective - Vital Signs/Intake and Output Vital Signs (last 24 hours): Temp Pulse Resp BP Pulse Ox 97.3 F L 108 H 20 154/76 H 96 11/24/18 23:20 11/24/18 23:20 11/24/18 23:20 11/24/18 23:20 11/24/18 23:20 Intake and Output: 11/24/18 11/25/18 18:59 06:59 Output Total 700 Balance -700 - Medications Medications: Current Medications Albuterol Sulfate (Albuterol 0.083% Inhal Shannan (2.5 Mg/3 Ml) Ud) 2.5 mg INH RQ6 PRN PRN Reason: Wheezing Dextrose (Dextrose 50% Inj) 0 ml IV STAT PRN; Protocol PRN Reason: Hypoglycemia Protocol Dextrose (Glutose 15) 0 gm PO ONCE PRN; Protocol PRN Reason: Hypoglycemia Protocol Docusate Sodium (Colace) 100 mg PO BID [facility] [place] Last Admin: 11/24/18 17:49 Dose: 100 mg Glucagon (Glucagen Diagnostic Kit) 0 mg IM STAT PRN; Protocol PRN Reason: Hypoglycemia Protocol Guaifenesin/Dextromethorphan (Robitussin Dm) 5 ml PO Q4H PRN PRN Reason: Cough Last Admin: 11/21/18 06:48 Dose: 5 ml Vancomycin/Sodium Chloride (Vancomycin 1 Gm/Ns 200 Ml) 1 gm in 200 mls @ 133.333 mls/hr IVPB Q12H [facility]; Protocol Last Admin: 11/25/18 01:11 Dose: 133.333 mls/hr Ciprofloxacin (Cipro 400mg/200ml Dsw) 400 mg in 200 mls @ 133 mls/hr IVPB Q12H [facility]; Protocol Last Admin: 11/24/18 21:10 Dose: 133 mls/hr Insulin Aspart (Novolog) 0 unit SC ACHS [facility] Last Admin: 11/24/18 23:01 Dose: Not Given Insulin Aspart (Novolog) 10 unit SC AC [facility] Insulin Glargine (Lantus) 30 unit SC HS [facility] Last Admin: 11/24/18 23:42 Dose: 30 unit Isosorbide Mononitrate (Imdur Er) 30 mg PO DAILY [facility] [place] Last Admin: 11/24/18 10:27 Dose: 30 mg Metoprolol Tartrate (Lopressor) 25 mg PO ACBD [facility] [place] Last Admin: 11/24/18 16:23 Dose: Not Given Ondansetron HCl (Zofran Inj) 4 mg IVP Q4 PRN PRN Reason: Nausea/Vomiting Last Admin: 11/21/18 09:34 Dose: 4 mg Pantoprazole Sodium (Protonix Ec Tab) 40 mg PO DAILY [facility] [place] Last Admin: 11/24/18 10:27 Dose: 40 mg Tramadol HCl (Ultram) 50 mg PO TID PRN PRN Reason: Pain, moderate (4-7) Last Admin: 11/24/18 17:48 Dose: 50 mg - Labs Labs: 11/23/18 06:43 11/23/18 06:43 - Constitutional Appears: No Acute Distress, Chronically Ill - Head Exam Head Exam: NORMOCEPHALIC - Eye Exam Eye Exam: Normal appearance - ENT Exam ENT Exam: Normal Exam - Neck Exam Neck Exam: Normal Inspection - Respiratory Exam Respiratory Exam: Rhonchi - Cardiovascular Exam Cardiovascular Exam: REGULAR RHYTHM - GI/Abdominal Exam GI & Abdominal Exam: Soft, Normal Bowel Sounds - Rectal Exam Rectal Exam: Deferred - Exam Exam: NORMAL INSPECTION - Extremities Exam Extremities Exam: Normal Inspection - Back Exam Additional comments: Tender lumbar spines. - Neurological Exam Neurological Exam: Alert, Awake, Oriented x3 - Psychiatric Exam Psychiatric exam: Anxious - Skin Skin Exam: Dry, Intact, Normal Color, Warm Assessment and Plan (1) DKA (diabetic ketoacidoses) Status: Resolved (2) Acute exacerbation of chronic low back pain Status: Chronic (3) Sepsis syndrome Status: Acute (4) Bilateral bronchopneumonia Assessment & Plan: IV antibiotics as per Dr Kenyon Arellano. Status: Acute
--- NOTE | 2018-11-25 06:45 | PN ---
DATE: 11/25/2018 ENDOCRINOLOGY FOLLOWUP NOTE LOCATION: In room 654. SUBJECTIVE: This is a 68-year-old female with recent uncontrolled type 2 insulin requiring diabetes, now being followed closely for metabolic management. Her glycemic levels are fluctuating, but improved. The glucose values have ranged from 164 to 186 mg per dL. However, it was 334 pre-breakfast this morning as noted. Her chemistry showed a BUN of 9, sodium 132, potassium 3.7, chloride 99, CO2 of 27, glucose 225, and creatinine 0.7. PLAN: So at this time, we will continue the same NovoLog coverage scale as given. However, we will increase her NovoLog to 10 units t.i.d. before meals as ordered. We will also continue the same basal insulin with Lantus given as 30 units subcu at bedtime daily as given. We will obtain serial chemistries and supplement accordingly as needed. We will follow. Elly Hannah MD
[2018-11-25] MEDS: (Novolog) Insulin Aspart, Recombinant 100 u/ml 10 ml vial SC SCH ×7 (08:04→22:03)
[2018-11-25] MEDS: Ciprofloxacin 400mg/200ml D5W 400 MG/200 ML BAG IVPB SCH ×2 (09:35→22:00)
[2018-11-25] MEDS: Pantoprazole 40 mg EC Tab PO SCH (10:41)
--- NOTE | 2018-11-25 12:06 | CP.PCM.PN ---
Subjective - Date & Time of Evaluation Date of Evaluation: 11/25/18 Time of Evaluation: 12:06 - Subjective Subjective: CHIEF COMPLAINTS TODAY : AFEBRILE, C/O LOT OF PAIN RT. SIDED ON COUGHING PRODUCTIVE COUGH. DROWSY FROM TRAMADOL ROS. HEENT : N. Resp : +VE cough, NO wheezing ,pleuritic CP ,or hemoptysis Cardio : No anginal CP, PND, orthopnea, palpitation GI : +VE EPIGASTRIC PAIN , AND NAUSEA . NO diarrhea or GI bleeding . VETERINARY TECHNICIAN : No headache, vertigo, focal deficit. Musculoskel : No joint swelling , Derm : No rash Psych : Normal affect. Ext : No swelling ,calf pain PE. Pt. is alert awake in no distress. V.S As noted in the chart Head ,ear nose,throat and eyes : Normal. Neck : Supple with normal carotids. Lungs: B/L RHONCHI Heart : S1 & S2 REGULAR., SINUS TACHCARDIA HIM, No murmur. Abd : SOFT, MILD TENDERNESS EPIGASTRIUM with normal bowel sounds. Neuro : Moves all ext. with no localized deficit. Ext : No edema with intact pulses.Non tender calves Derm : No rashes or decubitus ulcer. LABS/RADIOLOGY: REVIEWED. SPUTUM 11/23/18 -VE SMEAR FOR AFB VANCO TROUGH 7.8 LOW 11/22/18 wbc 21.3 high---> 16.3 IMPROVING SPUTUM +VE STAPH AUREUS S - CIPRO,MSSA URINE CULTURE +VE BETA HAEMOLYTIC STREP . GROUP B S- AMPICILLIN, VANCOMYCIN. Objective - Vital Signs/Intake and Output Vital Signs (last 24 hours): Temp Pulse Resp BP Pulse Ox 98.6 F 96 H 20 179/84 H 97 11/25/18 07:00 11/25/18 07:00 11/25/18 07:00 11/25/18 08:13 11/25/18 07:00 Intake and Output: 11/25/18 11/25/18 06:59 18:59 Output Total 1450 Balance -1450 - Medications Medications: Current Medications Albuterol Sulfate (Albuterol 0.083% Inhal Shannan (2.5 Mg/3 Ml) Ud) 2.5 mg INH RQ6 PRN PRN Reason: Wheezing Dextrose (Dextrose 50% Inj) 0 ml IV STAT PRN; Protocol PRN Reason: Hypoglycemia Protocol Dextrose (Glutose 15) 0 gm PO ONCE PRN; Protocol PRN Reason: Hypoglycemia Protocol Docusate Sodium (Colace) 100 mg PO BID [facility] Last Admin: 11/25/18 10:35 Dose: 100 mg Glucagon (Glucagen Diagnostic Kit) 0 mg IM STAT PRN; Protocol PRN Reason: Hypoglycemia Protocol Guaifenesin/Dextromethorphan (Robitussin Dm) 5 ml PO Q4H PRN PRN Reason: Cough Last Admin: 11/21/18 06:48 Dose: 5 ml Vancomycin/Sodium Chloride (Vancomycin 1 Gm/Ns 200 Ml) 1 gm in 200 mls @ 133.333 mls/hr IVPB Q12H [facility]; Protocol Last Admin: 11/25/18 01:11 Dose: 133.333 mls/hr Ciprofloxacin (Cipro 400mg/200ml Dsw) 400 mg in 200 mls @ 133 mls/hr IVPB Q12H [facility]; Protocol Last Admin: 11/25/18 09:35 Dose: 133 mls/hr Insulin Aspart (Novolog) 0 unit SC ACHS [facility] Last Admin: 11/25/18 08:04 Dose: Not Given Insulin Aspart (Novolog) 10 unit SC AC [facility] Last Admin: 11/25/18 08:12 Dose: 10 u Insulin Glargine (Lantus) 30 unit SC HS [facility] Last Admin: 11/24/18 23:42 Dose: 30 unit Isosorbide Mononitrate (Imdur Er) 30 mg PO DAILY [facility] Last Admin: 11/25/18 10:35 Dose: 30 mg Metoprolol Tartrate (Lopressor) 25 mg PO ACBD [facility] Last Admin: 11/25/18 08:13 Dose: 25 mg Ondansetron HCl (Zofran Inj) 4 mg IVP Q4 PRN PRN Reason: Nausea/Vomiting Last Admin: 11/21/18 09:34 Dose: 4 mg Pantoprazole Sodium (Protonix Ec Tab) 40 mg PO DAILY [facility] Last Admin: 11/25/18 10:41 Dose: 40 mg Tramadol HCl (Ultram) 50 mg PO TID PRN PRN Reason: Pain, moderate (4-7) Last Admin: 11/24/18 17:48 Dose: 50 mg - Labs Labs: 11/23/18 06:43 11/23/18 06:43 Assessment and Plan (1) Sepsis syndrome Status: Acute (2) DKA (diabetic ketoacidoses) Status: Resolved (3) Abdominal pain Status: Acute (4) Insulin dependent diabetes mellitus Status: Chronic (5) Hypertension Status: Chronic - Assessment and Plan (Free Text) Plan: CONTINUE CIPRO 400 MG iv PIGGYBACK EVERY 12 HOURLY 11/18/18. CONTINUE IV VANCOMYCIN 1000 MG IVPB Q 12HRLY 11/20 F/U VANCO TROUGH PRIOR TO 4TH DOSE AND KEEP BETWEEN 10-20MG/ML -P. TB W/U IN PROGRESS (ABNORMAL CT CHEST ) SPUTUM FOR AFB DAILY MORNING SPECIMEN X3. PT ON RESPIRATORY TREATMENTS. PRIVATE ROOM/ [employer] PRECAUTIONS FOR THE PATIENT FOR NOW.
--- NOTE | 2018-11-25 13:03 | PN ---
DATE: 11/25/2018 LOCATION: Room 654. SUBJECTIVE: This is a 68-year-old female with recent uncontrolled type 2 insulin-requiring diabetes, presenting here with diabetic ketoacidosis and has since then improved clinically and metabolically with the initiation of intensive insulin therapy and vigorous IV hydration as given. Her oral intake, however, remains quite variable with glycemic fluctuations as expected and today's glucose levels have ranged from 164 to 281 mg/dL. Her chemistry shows a BUN of 9, sodium 132, potassium 3.7, chloride 99, CO2 of 27, glucose 225, and creatinine 0.7. RECOMMENDATIONS: So, at this time, we will continue the same basal and bolus insulin regimen as modified with Novolog given at a higher dose of 10 units t.i.d. before meals to start today. We will also continue the basal insulin given as Lantus at 30 units subcu at bedtime daily as given. We will titrate incremental as indicated to optimize metabolic control. We will follow. Elly Hannah MD
[2018-11-25 14:14] LABS: BASO % 0.2 % (0.0-2.0); EOS % 0.1 % (0.0-4.0); LYMPH # 0.9 K/uL (1.0-4.3); LYMPH % 5.6 % (20.0-40.0); MEAN CELL VOLUME 93.5 fL (81.0-99.0); MEAN CORPUSCULAR HEMOGLOBIN 31.1 pg (27.0-31.0); MEAN CORPUSCULAR HGB CONC 33.2 g/dL (33.0-37.0); MEAN PLATELET VOLUME 10.4 fL (7.2-11.7); MONO # 7.3 K/uL (0.0-0.8); MONO % 43.7 % (0.0-10.0); NEUT # 8.5 K/uL (1.8-7.0); NEUT % 50.4 % (50.0-75.0); PLATELET COUNT 189 K/uL (130-400); RBC 3.47 Mil/uL (3.80-5.20); RED CELL DISTRIBUTION WIDTH 13.3 % (11.5-14.5); WHITE BLOOD COUNT 16.8 K/uL (4.8-10.8)
[2018-11-25 14:44] LABS: BLOOD UREA NITROGEN 13 mg/dL (7-17); GFR NON-AFRICAN AMERICAN > 60; HEMOGLOBIN 10.8 g/dL (11.0-16.0)
[2018-11-25 15:02] LABS: BANDS 4 % (0-2); LYMPHOCYTE 2 % (20-40); MONOCYTE 43 % (0-10); NEUTROPHIL 50 % (50-75); REACTIVE LYMPHOCYTES 1 % (0-0); TOTAL CELLS COUNTED 100
[2018-11-25 15:03] LABS: PLATELET ESTIMATE NORMAL (NORMAL)
--- NOTE | 2018-11-25 19:07 | CP.PCM.PN ---
Subjective - Date & Time of Evaluation Date of Evaluation: 11/25/18 Time of Evaluation: 19:04 - Subjective Subjective: Patient still with a productive cough, right sided chest pain, low back pain. Afebrile. WBC: 16,800. Objective - Vital Signs/Intake and Output Vital Signs (last 24 hours): Temp Pulse Resp BP Pulse Ox 97.7 F 105 H 20 159/75 H 95 11/25/18 15:27 11/25/18 15:27 11/25/18 15:27 11/25/18 17:24 11/25/18 15:27 Intake and Output: 11/25/18 11/26/18 18:59 06:59 Output Total 300 Balance -300 - Medications Medications: Current Medications Albuterol Sulfate (Albuterol 0.083% Inhal Shannan (2.5 Mg/3 Ml) Ud) 2.5 mg INH RQ6 PRN PRN Reason: Wheezing Dextrose (Dextrose 50% Inj) 0 ml IV STAT PRN; Protocol PRN Reason: Hypoglycemia Protocol Dextrose (Glutose 15) 0 gm PO ONCE PRN; Protocol PRN Reason: Hypoglycemia Protocol Docusate Sodium (Colace) 100 mg PO BID [facility] Last Admin: 11/25/18 17:24 Dose: 100 mg Glucagon (Glucagen Diagnostic Kit) 0 mg IM STAT PRN; Protocol PRN Reason: Hypoglycemia Protocol Guaifenesin/Dextromethorphan (Robitussin Dm) 5 ml PO Q4H PRN PRN Reason: Cough Last Admin: 11/21/18 06:48 Dose: 5 ml Vancomycin/Sodium Chloride (Vancomycin 1 Gm/Ns 200 Ml) 1 gm in 200 mls @ 133.333 mls/hr IVPB Q12H [facility]; Protocol Last Admin: 11/25/18 13:08 Dose: 133.333 mls/hr Ciprofloxacin (Cipro 400mg/200ml Dsw) 400 mg in 200 mls @ 133 mls/hr IVPB Q12H [facility]; Protocol Last Admin: 11/25/18 09:35 Dose: 133 mls/hr Insulin Aspart (Novolog) 0 unit SC ACHS [facility] Last Admin: 11/25/18 17:12 Dose: Not Given Insulin Aspart (Novolog) 10 unit SC AC [facility] Last Admin: 11/25/18 17:24 Dose: 10 u Insulin Glargine (Lantus) 30 unit SC HS [facility] Last Admin: 11/24/18 23:42 Dose: 30 unit Isosorbide Mononitrate (Imdur Er) 30 mg PO DAILY [facility] Last Admin: 11/25/18 10:35 Dose: 30 mg Metoprolol Tartrate (Lopressor) 25 mg PO ACBD [facility] Last Admin: 11/25/18 17:24 Dose: 25 mg Ondansetron HCl (Zofran Inj) 4 mg IVP Q4 PRN PRN Reason: Nausea/Vomiting Last Admin: 11/21/18 09:34 Dose: 4 mg Pantoprazole Sodium (Protonix Ec Tab) 40 mg PO DAILY [facility] Last Admin: 11/25/18 10:41 Dose: 40 mg Tramadol HCl (Ultram) 50 mg PO TID PRN PRN Reason: Pain, moderate (4-7) Last Admin: 11/25/18 15:25 Dose: 50 mg - Labs Labs: 11/25/18 13:35 11/25/18 13:35 - Constitutional Appears: No Acute Distress, Chronically Ill - Head Exam Head Exam: NORMAL INSPECTION - Eye Exam Eye Exam: Normal appearance Pupil Exam: NORMAL ACCOMODATION - ENT Exam ENT Exam: Normal Exam - Neck Exam Neck Exam: Normal Inspection - Respiratory Exam Respiratory Exam: Rhonchi Additional comments: Tender right chest wall. - Cardiovascular Exam Cardiovascular Exam: REGULAR RHYTHM - GI/Abdominal Exam GI & Abdominal Exam: Soft, Normal Bowel Sounds - Rectal Exam Rectal Exam: Deferred - Exam Exam: NORMAL INSPECTION - Extremities Exam Extremities Exam: Normal Inspection - Back Exam Back Exam: NORMAL INSPECTION Additional comments: Tender lumbar spines. - Neurological Exam Neurological Exam: Alert, Awake, Oriented x3 - Psychiatric Exam Psychiatric exam: Anxious - Skin Skin Exam: Dry, Intact, Normal Color Assessment and Plan (1) DKA (diabetic ketoacidoses) Status: Resolved (2) Acute exacerbation of chronic low back pain Status: Chronic (3) Sepsis syndrome Status: Acute (4) Bilateral bronchopneumonia Status: Acute
[2018-11-25] MEDS: (Lantus) Insulin Glargine, Recombinant SC SCH (22:15)
[2018-11-26] MEDS: Vancomycin 1 gm/NS 200 ml 1 GM/200 ML BAG IVPB SCH ×2 (02:25→12:45)
[2018-11-26] MEDS: (Novolog) Insulin Aspart, Recombinant 100 u/ml 10 ml vial SC SCH ×7 (08:12→22:20)
[2018-11-26] MEDS: Pantoprazole 40 mg EC Tab PO SCH (09:58)
[2018-11-26] MEDS: Ciprofloxacin 400mg/200ml D5W 400 MG/200 ML BAG IVPB SCH ×2 (09:59→20:52)
--- NOTE | 2018-11-26 13:28 | PN ---
DATE: 11/26/2018 LOCATION: Room . SUBJECTIVE: This is a 68-year-old female with recent uncontrolled type 2 insulin requiring diabetes, presenting here with diabetes ketoacidosis, dehydration, has improved clinically as noted thereof. Her oral intake is improving as noted by the staff. Her glucose values overnight have ranged from to 162 and 192 mg/dL. LABORATORY DATA: Her chemistry showed a BUN of 13, sodium 129, potassium 3.5, chloride 98, CO2 of 27, glucose 246 and creatinine 0.8. ASSESSMENT AND PLAN: So, at this time, we will continue the same basal and bolus insulin regimen as given with Novolog given as 10 units t.i.d. before meals as ordered. We will also continue the low-dose correction scale using Novolog insulins given. Moreover, we will continue also the long-acting basal insulin given as Lantus at 30 units subcutaneously at bedtime daily as given. We will tritiate incremental as indicated to optimize metabolic control. We will obtain serial chemistries and supplement accordingly as needed. We will follow. Elly Hannah MD
[2018-11-26] MEDS ORDERED: Potassium Chloride 20 mEq ER Tab PO STA (17:41)
--- NOTE | 2018-11-26 19:18 | CP.PCM.PN ---
Subjective - Date & Time of Evaluation Date of Evaluation: 11/26/18 Time of Evaluation: 19:15 - Subjective Subjective: Patient still with a productive cough, right sided chest heather, low back pain. Afebrile, blood glucose better controlled. Objective - Vital Signs/Intake and Output Vital Signs (last 24 hours): Temp Pulse Resp BP Pulse Ox 97.8 F 74 20 164/86 H 97 11/26/18 07:00 11/26/18 07:00 11/26/18 07:00 11/26/18 18:02 11/26/18 07:00 Intake and Output: 11/26/18 11/27/18 18:59 06:59 Intake Total 400 Output Total 750 Balance -350 - Medications Medications: Current Medications Albuterol Sulfate (Albuterol 0.083% Inhal Shannan (2.5 Mg/3 Ml) Ud) 2.5 mg INH RQ6 PRN PRN Reason: Wheezing Last Admin: 11/25/18 19:15 Dose: 2.5 mg Dextrose (Dextrose 50% Inj) 0 ml IV STAT PRN; Protocol PRN Reason: Hypoglycemia Protocol Dextrose (Glutose 15) 0 gm PO ONCE PRN; Protocol PRN Reason: Hypoglycemia Protocol Docusate Sodium (Colace) 100 mg PO BID [facility] Last Admin: 11/26/18 18:02 Dose: 100 mg Glucagon (Glucagen Diagnostic Kit) 0 mg IM STAT PRN; Protocol PRN Reason: Hypoglycemia Protocol Guaifenesin/Dextromethorphan (Robitussin Dm) 5 ml PO Q4H PRN PRN Reason: Cough Last Admin: 11/21/18 06:48 Dose: 5 ml Vancomycin/Sodium Chloride (Vancomycin 1 Gm/Ns 200 Ml) 1 gm in 200 mls @ 133.333 mls/hr IVPB Q12H [facility]; Protocol Last Admin: 11/26/18 12:45 Dose: 133.333 mls/hr Ciprofloxacin (Cipro 400mg/200ml Dsw) 400 mg in 200 mls @ 133 mls/hr IVPB Q12H [facility]; Protocol Last Admin: 11/26/18 09:59 Dose: 133 mls/hr Insulin Aspart (Novolog) 0 unit SC ACHS [facility] Last Admin: 11/26/18 17:30 Dose: Not Given Insulin Aspart (Novolog) 10 unit SC AC [facility] Last Admin: 11/26/18 17:30 Dose: Not Given Insulin Glargine (Lantus) 30 unit SC HS [facility] Last Admin: 11/25/18 22:15 Dose: 30 unit Isosorbide Mononitrate (Imdur Er) 30 mg PO DAILY [facility] Last Admin: 11/26/18 09:58 Dose: 30 mg Metoprolol Tartrate (Lopressor) 25 mg PO ACBD [facility] Last Admin: 11/26/18 18:02 Dose: 25 mg Ondansetron HCl (Zofran Inj) 4 mg IVP Q4 PRN PRN Reason: Nausea/Vomiting Last Admin: 11/21/18 09:34 Dose: 4 mg Pantoprazole Sodium (Protonix Ec Tab) 40 mg PO DAILY [facility] Last Admin: 11/26/18 09:58 Dose: 40 mg Potassium Chloride (Klor-Con 10) 10 meq PO BRK [facility] Stop: 11/30/18 08:01 Tramadol HCl (Ultram) 50 mg PO TID PRN PRN Reason: Pain, moderate (4-7) Last Admin: 11/26/18 14:52 Dose: 50 mg - Labs Labs: 11/25/18 13:35 11/25/18 13:35 - Constitutional Appears: No Acute Distress, Chronically Ill - Head Exam Head Exam: NORMAL INSPECTION - Eye Exam Eye Exam: Normal appearance Pupil Exam: NORMAL ACCOMODATION - ENT Exam ENT Exam: Normal Exam - Neck Exam Neck Exam: Normal Inspection - Respiratory Exam Respiratory Exam: Rhonchi Additional comments: Rhonchi heard in both lungs. Tender right chest. - Cardiovascular Exam Cardiovascular Exam: REGULAR RHYTHM - GI/Abdominal Exam GI & Abdominal Exam: Soft, Normal Bowel Sounds - Rectal Exam Rectal Exam: Deferred - Extremities Exam Extremities Exam: Normal Inspection - Back Exam Additional comments: Tender lumbar spines. - Neurological Exam Neurological Exam: Alert, Awake, Oriented x3 - Psychiatric Exam Psychiatric exam: Anxious - Skin Skin Exam: Dry, Intact, Normal Color, Warm Assessment and Plan (1) DKA (diabetic ketoacidoses) Status: Resolved (2) Acute exacerbation of chronic low back pain Status: Chronic (3) Sepsis syndrome Status: Acute (4) Bilateral bronchopneumonia Assessment & Plan: To continue IV antibiotics as per Dr Kenyon Arellano. Status: Acute
--- NOTE | 2018-11-26 20:45 | CP.PCM.PN ---
Subjective - Date & Time of Evaluation Date of Evaluation: 11/26/18 Time of Evaluation: 20:45 - Subjective Subjective: CHIEF COMPLAINTS TODAY : AFEBRILE, c/o RT.sided chest pain going to the back no n/v ROS. HEENT : N. Resp : +VE cough, NO wheezing ,pleuritic CP ,or hemoptysis Cardio : No anginal CP, PND, orthopnea, palpitation GI : +VE EPIGASTRIC PAIN , no NAUSEA . NO diarrhea or GI bleeding . BRAKE COUPLER DINKEY : No headache, vertigo, focal deficit. Musculoskel : No joint swelling , Derm : No rash Psych : Normal affect. Ext : No swelling ,calf pain PE. Pt. is alert awake in no distress. V.S As noted in the chart Head ,ear nose,throat and eyes : Normal. Neck : Supple with normal carotids. Lungs: B/L RHONCHI Heart : S1 & S2 REGULAR., SINUS TACHCARDIA HIM, No murmur. Abd : SOFT, MILD TENDERNESS EPIGASTRIUM with normal bowel sounds. Neuro : Moves all ext. with no localized deficit. Ext : No edema with intact pulses.Non tender calves Derm : No rashes or decubitus ulcer. LABS/RADIOLOGY: REVIEWED. vanco trough leve 11/26/18 16.2 [place] SPUTUM 11/23/18 , 11/24, -VE SMEAR FOR AFB XRAY RIB SERIES -VE wbc 16.3 IMPROVING RENAL FUNCTION - STABLE SPUTUM +VE STAPH AUREUS S - CIPRO,MSSA URINE CULTURE +VE BETA HAEMOLYTIC STREP . GROUP B S- AMPICILLIN, VANCOMYCIN. Objective - Vital Signs/Intake and Output Vital Signs (last 24 hours): Temp Pulse Resp BP Pulse Ox 97.8 F 74 20 164/86 H 97 11/26/18 07:00 11/26/18 07:00 11/26/18 07:00 11/26/18 18:02 11/26/18 07:00 Intake and Output: 11/26/18 11/27/18 18:59 06:59 Intake Total 400 Output Total 750 Balance -350 - Medications Medications: Current Medications Albuterol Sulfate (Albuterol 0.083% Inhal Shannan (2.5 Mg/3 Ml) Ud) 2.5 mg INH RQ6 PRN PRN Reason: Wheezing Last Admin: 11/25/18 19:15 Dose: 2.5 mg Dextrose (Dextrose 50% Inj) 0 ml IV STAT PRN; Protocol PRN Reason: Hypoglycemia Protocol Dextrose (Glutose 15) 0 gm PO ONCE PRN; Protocol PRN Reason: Hypoglycemia Protocol Docusate Sodium (Colace) 100 mg PO BID [facility] Last Admin: 11/26/18 18:02 Dose: 100 mg Glucagon (Glucagen Diagnostic Kit) 0 mg IM STAT PRN; Protocol PRN Reason: Hypoglycemia Protocol Guaifenesin/Dextromethorphan (Robitussin Dm) 5 ml PO Q4H PRN PRN Reason: Cough Last Admin: 11/21/18 06:48 Dose: 5 ml Vancomycin/Sodium Chloride (Vancomycin 1 Gm/Ns 200 Ml) 1 gm in 200 mls @ 133.333 mls/hr IVPB Q12H [facility]; Protocol Last Admin: 11/26/18 12:45 Dose: 133.333 mls/hr Ciprofloxacin (Cipro 400mg/200ml Dsw) 400 mg in 200 mls @ 133 mls/hr IVPB Q12H [facility]; Protocol Last Admin: 11/26/18 09:59 Dose: 133 mls/hr Insulin Aspart (Novolog) 0 unit SC ACHS [facility] Last Admin: 11/26/18 17:30 Dose: Not Given Insulin Aspart (Novolog) 10 unit SC AC [facility] Last Admin: 11/26/18 17:30 Dose: Not Given Insulin Glargine (Lantus) 30 unit SC HS [facility] Last Admin: 11/25/18 22:15 Dose: 30 unit Isosorbide Mononitrate (Imdur Er) 30 mg PO DAILY [facility] Last Admin: 11/26/18 09:58 Dose: 30 mg Metoprolol Tartrate (Lopressor) 25 mg PO ACBD [facility] Last Admin: 11/26/18 18:02 Dose: 25 mg Ondansetron HCl (Zofran Inj) 4 mg IVP Q4 PRN PRN Reason: Nausea/Vomiting Last Admin: 11/21/18 09:34 Dose: 4 mg Pantoprazole Sodium (Protonix Ec Tab) 40 mg PO DAILY [facility] Last Admin: 11/26/18 09:58 Dose: 40 mg Potassium Chloride (Klor-Con 10) 10 meq PO BRK [facility] Stop: 11/30/18 08:01 Tramadol HCl (Ultram) 50 mg PO TID PRN PRN Reason: Pain, moderate (4-7) Last Admin: 11/26/18 14:52 Dose: 50 mg - Labs Labs: 11/25/18 13:35 11/25/18 13:35 Assessment and Plan (1) Sepsis syndrome Status: Acute (2) DKA (diabetic ketoacidoses) Status: Resolved (3) Abdominal pain Status: Acute (4) Insulin dependent diabetes mellitus Status: Chronic (5) Hypertension Status: Chronic - Assessment and Plan (Free Text) Plan: Plan: CONTINUE CIPRO 400 MG iv PIGGYBACK EVERY 12 HOURLY 11/18/18. CONTINUE IV VANCOMYCIN 1000 MG IVPB Q 12HRLY 11/20 TB W/U IN PROGRESS (ABNORMAL CT CHEST ) SPUTUM FOR AFB SMEAR X2 -VE. P- 3RD ONE F/U QFT - P PT ON RESPIRATORY TREATMENTS. PRIVATE ROOM/ [employer] PRECAUTIONS FOR THE PATIENT FOR NOW.
[2018-11-26] MEDS: (Lantus) Insulin Glargine, Recombinant SC SCH (22:28)
[2018-11-26] MEDS: guaiFENesin DM 100 mg-10 mg/5 ml UD PO PRN (22:29)
[2018-11-27] MEDS: Vancomycin 1 gm/NS 200 ml 1 GM/200 ML BAG IVPB SCH ×2 (01:52→13:59)
[2018-11-27 07:32] LABS: BASO # 0.1 K/uL (0.0-0.2); BASO % 0.3 % (0.0-2.0); HEMOGLOBIN 9.9 g/dL (11.0-16.0); LYMPH # 0.9 K/uL (1.0-4.3); LYMPH % 5.4 % (20.0-40.0); MEAN CORPUSCULAR HEMOGLOBIN 31.5 pg (27.0-31.0); MEAN CORPUSCULAR HGB CONC 33.5 g/dL (33.0-37.0); MEAN PLATELET VOLUME 9.4 fL (7.2-11.7); MONO # 6.7 K/uL (0.0-0.8); MONO % 40.3 % (0.0-10.0); PLATELET COUNT 196 K/uL (130-400); RBC 3.13 Mil/uL (3.80-5.20); RED CELL DISTRIBUTION WIDTH 13.3 % (11.5-14.5); WHITE BLOOD COUNT 16.7 K/uL (4.8-10.8)
[2018-11-27 08:17] LABS: ALB/GLOB RATIO 0.7 (1.0-2.1); ALBUMIN 2.3 g/dL (3.5-5.0); ALT/SGPT 10 U/L (9-52); AST/SGOT 17 U/L (14-36); BLOOD UREA NITROGEN 13 mg/dL (7-17); CALCIUM 8.6 mg/dl (8.6-10.4); GFR NON-AFRICAN AMERICAN > 60
[2018-11-27] MEDS: (Novolog) Insulin Aspart, Recombinant 100 u/ml 10 ml vial SC SCH ×7 (08:34→21:41)
[2018-11-27] MEDS: Potassium Chloride 10 mEq ER Tab PO SCH (08:40)
[2018-11-27] MEDS: Ciprofloxacin 400mg/200ml D5W 400 MG/200 ML BAG IVPB SCH ×2 (08:45→21:30)
[2018-11-27] MEDS: Pantoprazole 40 mg EC Tab PO SCH (09:28)
[2018-11-27] MEDS: guaiFENesin DM 100 mg-10 mg/5 ml UD PO PRN (09:29)
[2018-11-27 10:43] LABS: BANDS 4 % (0-2); EOSINOPHIL 1 % (0-4); LYMPHOCYTE 6 % (20-40); MONOCYTE 33 % (0-10); MYELOCYTE 2 % (0-0); NEUTROPHIL 54 % (50-75); PLATELET ESTIMATE NORMAL (NORMAL); TOTAL CELLS COUNTED 100
--- NOTE | 2018-11-27 17:42 | PN ---
DATE: 11/27/2018 ENDOCRINOLOGY FOLLOWUP NOTE LOCATION: Room . SUBJECTIVE: This is a 68-year-old female with uncontrolled type 2 insulin-requiring diabetes being followed closely for metabolic management. Her glycemic levels are fluctuating but improved and the glucose varies in range from 126 to 235 mg/dL. LABORATORY DATA: Her chemistries showed a BUN of 9, sodium 132, potassium 3.7, chloride 9, CO2 of 27, glucose , creatinine 0.7. ASSESSMENT AND PLAN: So at this time, we will continue the same basal and bolus insulin regimen to allow for dose equilibration and keep her on the NovoLog given as 10 units three times daily before meals as ordered. We will continue the Lantus given as 30 units subcutaneous at bedtime daily as given. We will titrate incrementally as indicated to optimize metabolic control. We will follow. Elly Hannah MD
--- NOTE | 2018-11-27 19:31 | CP.PCM.PN ---
Subjective - Date & Time of Evaluation Date of Evaluation: 11/27/18 Time of Evaluation: 19:31 - Subjective Subjective: AFEBRILE, LESS CONGESTED STILL COUGHING WITH RT SIDED PLEURITIC CHEST PAIN ON IV ABX TB W/U IN PROGRESS Objective - Vital Signs/Intake and Output Vital Signs (last 24 hours): Temp Pulse Resp BP Pulse Ox 98.0 F 78 20 165/70 H 98 11/27/18 15:05 11/27/18 15:05 11/27/18 15:05 11/27/18 16:45 11/27/18 15:05 Intake and Output: 11/27/18 11/28/18 18:59 06:59 Intake Total 900 Output Total 600 Balance 300 - Medications Medications: Current Medications Albuterol Sulfate (Albuterol 0.083% Inhal Hsannan (2.5 Mg/3 Ml) Ud) 2.5 mg INH RQ6 PRN PRN Reason: Wheezing Last Admin: 11/25/18 19:15 Dose: 2.5 mg Dextrose (Dextrose 50% Inj) 0 ml IV STAT PRN; Protocol PRN Reason: Hypoglycemia Protocol Dextrose (Glutose 15) 0 gm PO ONCE PRN; Protocol PRN Reason: Hypoglycemia Protocol Docusate Sodium (Colace) 100 mg PO BID [facility] Last Admin: 11/27/18 18:26 Dose: 100 mg Glucagon (Glucagen Diagnostic Kit) 0 mg IM STAT PRN; Protocol PRN Reason: Hypoglycemia Protocol Guaifenesin/Dextromethorphan (Robitussin Dm) 5 ml PO Q4H PRN PRN Reason: Cough Last Admin: 11/27/18 09:29 Dose: 5 ml Vancomycin/Sodium Chloride (Vancomycin 1 Gm/Ns 200 Ml) 1 gm in 200 mls @ 133.3 33 mls/hr IVPB Q12H [facility]; Protocol Last Admin: 11/27/18 13:59 Dose: 133.333 mls/hr Ciprofloxacin (Cipro 400mg/200ml Dsw) 400 mg in 200 mls @ 133 mls/hr IVPB Q12H [facility]; Protocol Last Admin: 11/27/18 08:45 Dose: 133 mls/hr Insulin Aspart (Novolog) 0 unit SC ACHS [facility] Last Admin: 11/27/18 18:26 Dose: Not Given Insulin Aspart (Novolog) 10 unit SC AC [facility] Last Admin: 11/27/18 18:26 Dose: Not Given Insulin Glargine (Lantus) 30 unit SC HS [facility] Last Admin: 11/26/18 22:28 Dose: 30 unit Isosorbide Mononitrate (Imdur Er) 30 mg PO DAILY [facility] Last Admin: 11/27/18 09:28 Dose: 30 mg Metoprolol Tartrate (Lopressor) 25 mg PO ACBD [facility] Last Admin: 11/27/18 16:45 Dose: 25 mg Ondansetron HCl (Zofran Inj) 4 mg IVP Q4 PRN PRN Reason: Nausea/Vomiting Last Admin: 11/21/18 09:34 Dose: 4 mg Pantoprazole Sodium (Protonix Ec Tab) 40 mg PO DAILY [facility] Last Admin: 11/27/18 09:28 Dose: 40 mg Potassium Chloride (Klor-Con 10) 10 meq PO BRK [facility] Stop: 11/30/18 08:01 Last Admin: 11/27/18 08:40 Dose: 10 meq Tramadol HCl (Ultram) 50 mg PO TID PRN PRN Reason: Pain, moderate (4-7) Last Admin: 11/27/18 14:18 Dose: 50 mg - Labs Labs: 11/27/18 07:16 11/27/18 07:16 - Constitutional Appears: No Acute Distress - Head Exam Head Exam: NORMAL INSPECTION - Eye Exam Eye Exam: PERRL - ENT Exam ENT Exam: Mucous Membranes Moist, Normal Oropharynx - Neck Exam Neck Exam: Normal Inspection - Respiratory Exam Respiratory Exam: Chest Wall Tenderness (RT SIDE), Rhonchi (B/L), NORMAL BREATHING PATTERN - GI/Abdominal Exam GI & Abdominal Exam: Soft, Normal Bowel Sounds - Extremities Exam Extremities Exam: Normal Capillary Refill, Pedal Edema. absent: Calf Tenderness - Neurological Exam Neurological Exam: Awake, CN II-XII Intact, Oriented x3, Reflexes Normal - Psychiatric Exam Psychiatric exam: Normal Mood - Skin Skin Exam: Normal Color, Warm Assessment and Plan (1) Sepsis syndrome Status: Acute (2) DKA (diabetic ketoacidoses) Status: Resolved (3) Abdominal pain Status: Acute (4) Insulin dependent diabetes mellitus Status: Chronic (5) Hypertension Status: Chronic - Assessment and Plan (Free Text) Plan: Plan: REPEAT CT CHEST W/O CONTRAST TO EVALUATE PNEUMONIA CONTINUE CIPRO 400 MG iv PIGGYBACK EVERY 12 HOURLY 11/18/18. CONTINUE IV VANCOMYCIN 1000 MG IVPB Q 12HRLY 11/20 TB W/U IN PROGRESS (ABNORMAL CT CHEST ) SPUTUM FOR AFB SMEAR X2 -VE. P- 3RD ONE F/U QFT - P PT ON RESPIRATORY TREATMENTS. PRIVATE ROOM/ [employer] PRECAUTIONS FOR THE PATIENT FOR NOW.
[2018-11-27] MEDS: (Lantus) Insulin Glargine, Recombinant SC SCH (21:40)
--- NOTE | 2018-11-27 22:13 | CP.PCM.PN ---
Subjective - Date & Time of Evaluation Date of Evaluation: 11/27/18 Time of Evaluation: 13:25 - Subjective Subjective: Patient still having a productive cough, right sided chest pain and low back pain. On IV antibiotics. Objective - Vital Signs/Intake and Output Vital Signs (last 24 hours): Temp Pulse Resp BP Pulse Ox 98.0 F 78 20 165/70 H 98 11/27/18 15:05 11/27/18 15:05 11/27/18 15:05 11/27/18 16:45 11/27/18 15:05 Intake and Output: 11/27/18 11/28/18 18:59 06:59 Intake Total 900 Output Total 600 Balance 300 - Medications Medications: Current Medications Albuterol Sulfate (Albuterol 0.083% Inhal Shannan (2.5 Mg/3 Ml) Ud) 2.5 mg INH RQ6 PRN PRN Reason: Wheezing Last Admin: 11/25/18 19:15 Dose: 2.5 mg Dextrose (Dextrose 50% Inj) 0 ml IV STAT PRN; Protocol PRN Reason: Hypoglycemia Protocol Dextrose (Glutose 15) 0 gm PO ONCE PRN; Protocol PRN Reason: Hypoglycemia Protocol Docusate Sodium (Colace) 100 mg PO BID [facility] Last Admin: 11/27/18 18:26 Dose: 100 mg Glucagon (Glucagen Diagnostic Kit) 0 mg IM STAT PRN; Protocol PRN Reason: Hypoglycemia Protocol Guaifenesin/Dextromethorphan (Robitussin Dm) 5 ml PO Q4H PRN PRN Reason: Cough Last Admin: 11/27/18 09:29 Dose: 5 ml Vancomycin/Sodium Chloride (Vancomycin 1 Gm/Ns 200 Ml) 1 gm in 200 mls @ 133.333 mls/hr IVPB Q12H [facility]; Protocol Last Admin: 11/27/18 13:59 Dose: 133.333 mls/hr Ciprofloxacin (Cipro 400mg/200ml Dsw) 400 mg in 200 mls @ 133 mls/hr IVPB Q12H [facility]; Protocol Last Admin: 11/27/18 21:30 Dose: 133 mls/hr Insulin Aspart (Novolog) 0 unit SC ACHS [facility] Last Admin: 11/27/18 21:41 Dose: Not Given Insulin Aspart (Novolog) 10 unit SC AC [facility] Last Admin: 11/27/18 18:26 Dose: Not Given Insulin Glargine (Lantus) 30 unit SC HS [facility] Last Admin: 11/27/18 21:40 Dose: 30 unit Isosorbide Mononitrate (Imdur Er) 30 mg PO DAILY [facility] Last Admin: 11/27/18 09:28 Dose: 30 mg Metoprolol Tartrate (Lopressor) 25 mg PO ACBD [facility] Last Admin: 11/27/18 16:45 Dose: 25 mg Ondansetron HCl (Zofran Inj) 4 mg IVP Q4 PRN PRN Reason: Nausea/Vomiting Last Admin: 11/21/18 09:34 Dose: 4 mg Pantoprazole Sodium (Protonix Ec Tab) 40 mg PO DAILY [facility] Last Admin: 11/27/18 09:28 Dose: 40 mg Potassium Chloride (Klor-Con 10) 10 meq PO BRK [facility] Stop: 11/30/18 08:01 Last Admin: 11/27/18 08:40 Dose: 10 meq Tramadol HCl (Ultram) 50 mg PO TID PRN PRN Reason: Pain, moderate (4-7) Last Admin: 11/27/18 21:40 Dose: 50 mg - Labs Labs: 11/27/18 07:16 11/27/18 07:16 - Constitutional Appears: No Acute Distress, Chronically Ill - Head Exam Head Exam: NORMOCEPHALIC - Eye Exam Eye Exam: Normal appearance Pupil Exam: NORMAL ACCOMODATION - ENT Exam ENT Exam: Normal Exam - Neck Exam Neck Exam: Normal Inspection - Respiratory Exam Respiratory Exam: Rhonchi Additional comments: Tender right chest. - Cardiovascular Exam Cardiovascular Exam: REGULAR RHYTHM - GI/Abdominal Exam GI & Abdominal Exam: Soft, Normal Bowel Sounds - Rectal Exam Rectal Exam: Deferred - Extremities Exam Extremities Exam: Normal Inspection - Back Exam Back Exam: vertebral tenderness - Neurological Exam Neurological Exam: Alert, Awake, Oriented x3 - Psychiatric Exam Psychiatric exam: Anxious - Skin Skin Exam: Dry, Intact, Normal Color, Warm Assessment and Plan (1) DKA (diabetic ketoacidoses) Status: Resolved (2) Acute exacerbation of chronic low back pain Status: Chronic (3) Sepsis syndrome Status: Acute (4) Bilateral bronchopneumonia Status: Acute
[2018-11-28] MEDS: Vancomycin 1 gm/NS 200 ml 1 GM/200 ML BAG IVPB SCH ×2 (01:05→13:17)
[2018-11-28] MEDS: (Novolog) Insulin Aspart, Recombinant 100 u/ml 10 ml vial SC SCH ×7 (08:29→21:37)
[2018-11-28] MEDS: Potassium Chloride 10 mEq ER Tab PO SCH (08:54)
[2018-11-28] MEDS: Pantoprazole 40 mg EC Tab PO SCH (10:26)
[2018-11-28] MEDS: Ciprofloxacin 400mg/200ml D5W 400 MG/200 ML BAG IVPB SCH ×2 (10:29→21:52)
[2018-11-28] MEDS: Oxycodone/Acetaminophen 5/325 mg Tab PO PRN ×3 (12:12→22:37)
--- NOTE | 2018-11-28 15:25 | CP.PCM.PN ---
Subjective - Date & Time of Evaluation Date of Evaluation: 11/28/18 Time of Evaluation: 15:25 - Subjective Subjective: AFEBRILE, +VE CONGESTIVE COUGH. MILDLY DYSPNEIC AT REST. C/O RT SIDED CEST PAIN GOING TO THE BACK. LABS REVIEWED. CT CHEST W/O CONTRAST. -NOTED. INCREASING RT. PLEURAL EFFUSION/ATELECTASIS RLL LT PLEURAL EFFUSION SMALL. ( see full report ) Objective - Vital Signs/Intake and Output Vital Signs (last 24 hours): Temp Pulse Resp BP Pulse Ox 98.0 F 73 20 174/78 H 96 11/28/18 07:00 11/28/18 07:00 11/28/18 07:00 11/28/18 08:54 11/28/18 07:00 Intake and Output: 11/28/18 11/28/18 06:59 18:59 Intake Total 200 Output Total 1350 Balance -1150 - Medications Medications: Current Medications Albuterol Sulfate (Albuterol 0.083% Inhal Shannan (2.5 Mg/3 Ml) Ud) 2.5 mg INH RQ6 PRN PRN Reason: Wheezing Last Admin: 11/25/18 19:15 Dose: 2.5 mg Dextrose (Dextrose 50% Inj) 0 ml IV STAT PRN; Protocol PRN Reason: Hypoglycemia Protocol Dextrose (Glutose 15) 0 gm PO ONCE PRN; Protocol PRN Reason: Hypoglycemia Protocol Docusate Sodium (Colace) 100 mg PO BID [facility] Last Admin: 11/28/18 10:26 Dose: 100 mg Glucagon (Glucagen Diagnostic Kit) 0 mg IM STAT PRN; Protocol PRN Reason: Hypoglycemia Protocol Guaifenesin/Dextromethorphan (Robitussin Dm) 5 ml PO Q4H PRN PRN Reason: Cough Last Admin: 11/27/18 09:29 Dose: 5 ml Vancomycin/Sodium Chloride (Vancomycin 1 Gm/Ns 200 Ml) 1 gm in 200 mls @ 133.333 mls/hr IVPB Q12H [facility]; Protocol Last Admin: 11/28/18 13:17 Dose: 133.333 mls/hr Ciprofloxacin (Cipro 400mg/200ml Dsw) 400 mg in 200 mls @ 133 mls/hr IVPB Q12H [facility]; Protocol Last Admin: 11/28/18 10:29 Dose: 133 mls/hr Insulin Aspart (Novolog) 0 unit SC ACHS [facility] Last Admin: 11/28/18 12:06 Dose: Not Given Insulin Aspart (Novolog) 10 unit SC AC [facility] Last Admin: 11/28/18 12:07 Dose: Not Given Insulin Glargine (Lantus) 30 unit SC HS [facility] Last Admin: 11/27/18 21:40 Dose: 30 unit Isosorbide Mononitrate (Imdur Er) 30 mg PO DAILY [facility] Last Admin: 11/28/18 10:26 Dose: 30 mg Metoprolol Tartrate (Lopressor) 25 mg PO ACBD [facility] Last Admin: 11/28/18 08:54 Dose: 25 mg Ondansetron HCl (Zofran Inj) 4 mg IVP Q4 PRN PRN Reason: Nausea/Vomiting Last Admin: 11/21/18 09:34 Dose: 4 mg Oxycodone/Acetaminophen (Percocet 5/325 Mg Tab) 1 tab PO Q4H PRN PRN Reason: Pain, severe (8-10) Stop: 12/01/18 12:06 Last Admin: 11/28/18 12:12 Dose: 1 tab Pantoprazole Sodium (Protonix Ec Tab) 40 mg PO DAILY [facility] Last Admin: 11/28/18 10:26 Dose: 40 mg Potassium Chloride (Klor-Con 10) 10 meq PO BRK [facility] Stop: 11/30/18 08:01 Last Admin: 11/28/18 08:54 Dose: 10 meq Tramadol HCl (Ultram) 50 mg PO TID PRN PRN Reason: Pain, moderate (4-7) Last Admin: 11/28/18 08:53 Dose: 50 mg - Labs Labs: 11/27/18 07:16 11/27/18 07:16 - Constitutional Appears: No Acute Distress - Head Exam Head Exam: NORMAL INSPECTION - Eye Exam Eye Exam: EOMI, PERRL - ENT Exam ENT Exam: Normal Oropharynx - Neck Exam Neck Exam: Normal Inspection - Respiratory Exam Respiratory Exam: Decreased Breath Sounds (rt side > LT. +VE RHONCHI/RALES) - Cardiovascular Exam Cardiovascular Exam: REGULAR RHYTHM, +S1, +S2 - GI/Abdominal Exam GI & Abdominal Exam: Soft, Normal Bowel Sounds - Extremities Exam Extremities Exam: Normal Capillary Refill. absent: Calf Tenderness, Pedal Edema - Neurological Exam Neurological Exam: Awake, CN II-XII Intact, Oriented x3, Reflexes Normal - Psychiatric Exam Psychiatric exam: Normal Mood - Skin Skin Exam: Normal Color, Warm Assessment and Plan (1) Sepsis syndrome Status: Acute (2) DKA (diabetic ketoacidoses) Status: Resolved (3) Abdominal pain Status: Acute (4) Insulin dependent diabetes mellitus Status: Chronic (5) Hypertension Status: Chronic - Assessment and Plan (Free Text) Plan: CONTINUE CIPRO 400 MG iv PIGGYBACK EVERY 12 HOURLY 11/18/18. CONTINUE IV VANCOMYCIN 1000 MG IVPB Q 12HRLY 11/20 ADD IV FLAGYL 500MG IVPB Q 8HRLY 11/28/18 TB W/U IN PROGRESS (ABNORMAL CT CHEST )-VE SO FAR SPUTUM FOR AFB SMEAR X 3 -VE. QFT -GOLD TB TEST -VE CONSIDER THORACIC SURGERY EVALUATION AND ?RT SIDED THORACENTESIS AND APPROPRITE BACTERIAL,AFB AND FUNGAL SMEARS AND CULTURES R/O EMPYEMA/? DRAINAGE DISCUSSES WITH DR THAPA. PT ON RESPIRATORY TREATMENTS. DC [employer]OR[place] PRECAUTIONS FOR THE PATIENT. KEEP IN PRIVATE ROOM PT COUGHING
--- NOTE | 2018-11-28 17:26 | PN ---
DATE: 11/28/2018 ENDOCRINOLOGY FOLLOWUP NOTE ROOM: 654. SUBJECTIVE: This is a 68-year-old with recent uncontrolled type 2 insulin requiring diabetes, now metabolic management. Her glycemic levels are fluctuating, improved, and the glucose levels have ranged from 80 to 160 mg/dL. Chemistries showed BUN 13, sodium 130, potassium 4.3, chloride 97, CO2 30, glucose 276, and creatinine 0.8. NovoLog given as 10 units IV before meals . Continue the Lantus given as 50 units subcu at bedtime daily. We will titrate incrementally as indicated to optimize metabolic control. We will obtain serial chemistries accordingly as needed. We will follow. Elly Hannah MD
--- NOTE | 2018-11-28 17:46 | CT ---
Date of service: 11/28/2018 PROCEDURE: CT Chest without contrast HISTORY: Follow-up pneumonia COMPARISON: Comparison made with prior chest CT scan 11/21/2018 TECHNIQUE: Contiguous axial images were obtained through the chest without intravenous contrast enhancement. Sagittal and coronal reconstructions were performed. Radiation dose: Total exam DLP = 2806.48 mGy-cm. This CT exam was performed using one or more of the following dose reduction techniques: Automated exposure control, adjustment of the mA and/or kV according to patient size, and/or use of iterative reconstruction technique. FINDINGS: LUNGS: Markedly increased right-sided effusion and right lower lobe atelectasis. Mild right upper lobe atelectasis. Trace left-sided effusion and minor left basilar atelectasis. MEDIASTINUM: Heart is enlarged. . No thoracic aortic aneurysm. Mild aortic atherosclerotic calcification.. Multiple small to medium-sized mediastinal lymph nodes are present PLEURA: As above... No pneumothorax. BONES: Again noted is a chronic anterior wedge compression fracture of the T12 segment with resultant kyphotic angulation deformity at this level.. UPPER ABDOMEN: Spleen upper limits of normal in size. OTHER FINDINGS: None. IMPRESSION: Marked increase size right effusion and right lower lobe atelectasis. Mild right upper lobe atelectasis. Tiny left-sided effusion with mild left basilar atelectasis.. Multiple small to medium-sized mediastinal lymph nodes. Cardiomegaly. Again noted is a chronic anterior wedge compression fracture T12 segment with kyphotic angulation deformity.
[2018-11-28] MEDS: (Lantus) Insulin Glargine, Recombinant SC SCH ×2 (21:36→21:50)
--- NOTE | 2018-11-28 23:51 | CP.PCM.PN ---
Subjective - Date & Time of Evaluation Date of Evaluation: 11/28/18 Time of Evaluation: 22:00 - Subjective Subjective: Patient still has a productive cough and right sided chest pain. CT scan of the chest revealed marked increase in right pleural effusion, WBC: 16,8000 . On IV Cipro and Vancomycin. Will get a thoracic consult for possible empyema, Objective - Vital Signs/Intake and Output Vital Signs (last 24 hours): Temp Pulse Resp BP Pulse Ox 98 F 73 20 178/70 H 94 L 11/28/18 15:36 11/28/18 15:36 11/28/18 15:36 11/28/18 17:00 11/28/18 15:36 Intake and Output: 11/28/18 11/29/18 18:59 06:59 Output Total 1600 Balance -1600 - Medications Medications: Current Medications Albuterol Sulfate (Albuterol 0.083% Inhal Shannan (2.5 Mg/3 Ml) Ud) 2.5 mg INH RQ6 PRN PRN Reason: Wheezing Last Admin: 11/25/18 19:15 Dose: 2.5 mg Dextrose (Dextrose 50% Inj) 0 ml IV STAT PRN; Protocol PRN Reason: Hypoglycemia Protocol Dextrose (Glutose 15) 0 gm PO ONCE PRN; Protocol PRN Reason: Hypoglycemia Protocol Docusate Sodium (Colace) 100 mg PO BID [facility] Last Admin: 11/28/18 18:10 Dose: 100 mg Glucagon (Glucagen Diagnostic Kit) 0 mg IM STAT PRN; Protocol PRN Reason: Hypoglycemia Protocol Guaifenesin/Dextromethorphan (Robitussin Dm) 5 ml PO Q4H PRN PRN Reason: Cough Last Admin: 11/27/18 09:29 Dose: 5 ml Vancomycin/Sodium Chloride (Vancomycin 1 Gm/Ns 200 Ml) 1 gm in 200 mls @ 133.333 mls/hr IVPB Q12H [facility]; Protocol Last Admin: 11/28/18 13:17 Dose: 133.333 mls/hr Ciprofloxacin (Cipro 400mg/200ml Dsw) 400 mg in 200 mls @ 133 mls/hr IVPB Q12H [facility]; Protocol Last Admin: 11/28/18 21:52 Dose: 133 mls/hr Insulin Aspart (Novolog) 0 unit SC ACHS [facility] Last Admin: 11/28/18 21:37 Dose: Not Given Insulin Aspart (Novolog) 10 unit SC AC [facility] Last Admin: 11/28/18 17:00 Dose: 10 u Insulin Glargine (Lantus) 30 unit SC [facility] Last Admin: 11/28/18 21:50 Dose: 30 unit Isosorbide Mononitrate (Imdur Er) 30 mg PO DAILY [facility] Last Admin: 11/28/18 10:26 Dose: 30 mg Metoprolol Tartrate (Lopressor) 25 mg PO ACBD [facility] Last Admin: 11/28/18 17:00 Dose: 25 mg Ondansetron HCl (Zofran Inj) 4 mg IVP Q4 PRN PRN Reason: Nausea/Vomiting Last Admin: 11/21/18 09:34 Dose: 4 mg Oxycodone/Acetaminophen (Percocet 5/325 Mg Tab) 1 tab PO Q4H PRN PRN Reason: Pain, severe (8-10) Stop: 12/01/18 12:06 Last Admin: 11/28/18 22:37 Dose: 1 tab Pantoprazole Sodium (Protonix Ec Tab) 40 mg PO DAILY [facility] Last Admin: 11/28/18 10:26 Dose: 40 mg Potassium Chloride (Klor-Con 10) 10 meq PO BRK [facility] Stop: 11/30/18 08:01 Last Admin: 11/28/18 08:54 Dose: 10 meq Tramadol HCl (Ultram) 50 mg PO TID PRN PRN Reason: Pain, moderate (4-7) Last Admin: 11/28/18 08:53 Dose: 50 mg - Labs Labs: 11/27/18 07:16 11/27/18 07:16 - Constitutional Appears: No Acute Distress, Chronically Ill - Head Exam Head Exam: NORMOCEPHALIC - Eye Exam Eye Exam: Normal appearance Pupil Exam: NORMAL ACCOMODATION - ENT Exam ENT Exam: Normal Exam - Neck Exam Neck Exam: Normal Inspection - Respiratory Exam Respiratory Exam: Rhonchi Additional comments: Rhonchi bilaterally and decreased BS at the right base. - Cardiovascular Exam Cardiovascular Exam: REGULAR RHYTHM - GI/Abdominal Exam GI & Abdominal Exam: Soft, Normal Bowel Sounds - Rectal Exam Rectal Exam: Deferred - Exam Exam: NORMAL INSPECTION - Extremities Exam Extremities Exam: Normal Inspection - Back Exam Back Exam: NORMAL INSPECTION - Neurological Exam Neurological Exam: Alert, Awake, Oriented x3 - Psychiatric Exam Psychiatric exam: Anxious - Skin Skin Exam: Dry, Intact, Normal Color, Warm Assessment and Plan (1) DKA (diabetic ketoacidoses) Status: Resolved (2) Acute exacerbation of chronic low back pain Status: Chronic (3) Sepsis syndrome Status: Acute (4) Bilateral bronchopneumonia Assessment & Plan: r/o empyema. Will ask for a thoracic surgical evaluation. Status: Acute (5) Recurrent right pleural effusion Status: Acute
[2018-11-29] MEDS: Vancomycin 1 gm/NS 200 ml 1 GM/200 ML BAG IVPB SCH ×2 (00:24→13:53)
--- NOTE | 2018-11-29 08:00 | CP.PCM.CON ---
History of Present Illness - History of Present Illness History of Present Illness: Cardiothoracic Surgery: Dr. Edwards Pt is a 68F with PMHx significant for HTN, DM, CAD w/PCI, CVA, schizophrenia & severe osteoporosis who presented to on 11/17 for abdominal pain, weakness and several episodes of vomiting. Pt was admitted for anion gap metabolic acidosis and her condition improved throughout her hospital stay. During this time, pt also complained of a productive cough and CT chest showed small R sided pleural effusion with atelectasis. Due to no improvement in pulmonary status and a repeat CT chest showing marked increase in R sided pleural effusion, CT surgery has been consulted to evaluate for possible empyema. Currently, pt is resting comfortably. States her abdominal pain has resolved and she's tolerating her diet. She does admit to pulmonary congestion and a cough but denies SOB. Denies chest pain, fevers/chills. PMHx: as stated above PSHx: Appendectomy; Coronary stent SocialHx: denies smoking/EtOH/drugs All: PCN Review of Systems - Review of Systems All systems: reviewed and no additional remarkable complaints except (as per H PI) Past Patient History - Infectious Disease Hx of Infectious Diseases: None - Tetanus Immunizations Tetanus Immunization: Unknown - Past Medical History & Family History Past Medical History?: Yes - Past Social History Smoking Status: Former Smoker - CARDIAC Hx Cardiac Disorders: Yes Hx Hypercholesterolemia: Yes Hx Hypertension: Yes - PULMONARY Hx Respiratory Disorders: Yes Hx Asthma: Yes - NEUROLOGICAL Hx Neurological Disorder: No Hx Seizures: No - HEENT Hx HEENT Problems: Yes Other/Comment: wear eyeglasses - RENAL Hx Chronic Kidney Disease: No - ENDOCRINE/METABOLIC Hx Endocrine Disorders: Yes Hx Diabetes Mellitus Type 2: Yes - HEMATOLOGICAL/ONCOLOGICAL Hx Blood Disorders: No Hx Human Immunodeficiency Virus (HIV): No - INTEGUMENTARY Hx Dermatological Problems: Yes Other/Comment: Hx skin rash - MUSCULOSKELETAL/RHEUMATOLOGICAL Hx Musculoskeletal Disorders: Yes Hx Arthritis: Yes Hx Falls: No Hx Osteoporosis: Yes - GASTROINTESTINAL Hx Gastrointestinal Disorders: Yes Hx Crohn's Disease: No Hx Diverticulitis: No Hx Gall Bladder Disease: No Hx Gastritis: Yes Hx Pancreatitis: No - GENITOURINARY/GYNECOLOGICAL Hx Genitourinary Disorders: No Hx Sexually Transmitted Disorders: No - PSYCHIATRIC Hx Psychophysiologic Disorder: Yes Hx Anxiety: Yes Hx Bipolar Disorder: Yes Hx Depression: Yes Hx Paranoia: Yes Hx Schizophrenia: Yes Hx Substance Use: No - SURGICAL HISTORY Hx Surgeries: Yes Hx Appendectomy: Yes Hx Coronary Stent: Yes (PCI of the LAD with stent insertion ( [facility]) in 2007 in [place].) - ANESTHESIA Hx Anesthesia: Yes Hx Anesthesia Reactions: No Hx Malignant Hyperthermia: No Has any member of the family had a problem w/ anesthesia?: No Meds Allergies/Adverse Reactions: Allergies Allergy/AdvReac Type Severity Reaction Status Date / Time Penicillins Allergy RASH Verified 06/15/18 14:35 - Medications Medications: Current Medications Albuterol Sulfate (Albuterol 0.083% Inhal Shannan (2.5 Mg/3 Ml) Ud) 2.5 mg INH RQ6 PRN PRN Reason: Wheezing Last Admin: 11/25/18 19:15 Dose: 2.5 mg Dextrose (Dextrose 50% Inj) 0 ml IV STAT PRN; Protocol PRN Reason: Hypoglycemia Protocol Dextrose (Glutose 15) 0 gm PO ONCE PRN; Protocol PRN Reason: Hypoglycemia Protocol Docusate Sodium (Colace) 100 mg PO BID [facility] Last Admin: 11/28/18 18:10 Dose: 100 mg Glucagon (Glucagen Diagnostic Kit) 0 mg IM STAT PRN; Protocol PRN Reason: Hypoglycemia Protocol Guaifenesin/Dextromethorphan (Robitussin Dm) 5 ml PO Q4H PRN PRN Reason: Cough Last Admin: 11/27/18 09:29 Dose: 5 ml Vancomycin/Sodium Chloride (Vancomycin 1 Gm/Ns 200 Ml) 1 gm in 200 mls @ 133.333 mls/hr IVPB Q12H [facility]; Protocol Last Admin: 11/29/18 00:24 Dose: 133.333 mls/hr Ciprofloxacin (Cipro 400mg/200ml Dsw) 400 mg in 200 mls @ 133 mls/hr IVPB Q12H [facility]; Protocol Last Admin: 11/28/18 21:52 Dose: 133 mls/hr Insulin Aspart (Novolog) 0 unit SC ACHS [facility] Last Admin: 11/28/18 21:37 Dose: Not Given Insulin Aspart (Novolog) 10 unit SC AC [facility] Last Admin: 11/28/18 17:00 Dose: 10 u Insulin Glargine (Lantus) 30 unit SC HS [facility] Last Admin: 11/28/18 21:50 Dose: 30 unit Isosorbide Mononitrate (Imdur Er) 30 mg PO DAILY [facility] Last Admin: 11/28/18 10:26 Dose: 30 mg Metoprolol Tartrate (Lopressor) 25 mg PO ACBD [facility] Last Admin: 11/28/18 17:00 Dose: 25 mg Ondansetron HCl (Zofran Inj) 4 mg IVP Q4 PRN PRN Reason: Nausea/Vomiting Last Admin: 11/21/18 09:34 Dose: 4 mg Oxycodone/Acetaminophen (Percocet 5/325 Mg Tab) 1 tab PO Q4H PRN PRN Reason: Pain, severe (8-10) Stop: 12/01/18 12:06 Last Admin: 11/28/18 22:37 Dose: 1 tab Pantoprazole Sodium (Protonix Ec Tab) 40 mg PO DAILY [facility] Last Admin: 11/28/18 10:26 Dose: 40 mg Potassium Chloride (Klor-Con 10) 10 meq PO BRK [facility] Stop: 11/30/18 08:01 Last Admin: 11/28/18 08:54 Dose: 10 meq Tramadol HCl (Ultram) 50 mg PO TID PRN PRN Reason: Pain, moderate (4-7) Last Admin: 11/28/18 08:53 Dose: 50 mg Physical Exam - Constitutional Appears: Well, No Acute Distress - Head Exam Head Exam: ATRAUMATIC, NORMOCEPHALIC - Eye Exam Eye Exam: Normal appearance - ENT Exam ENT Exam: Mucous Membranes Moist - Respiratory Exam Respiratory Exam: Decreased Breath Sounds (R lower lobe ), Wheezes (b/l lung maya) - Cardiovascular Exam Cardiovascular Exam: RRR - GI/Abdominal Exam GI & Abdominal Exam: Soft. absent: Distended - Extremities Exam Extremities exam: Negative for: tenderness - Neurological Exam Neurological exam: Alert, Oriented x3 - Skin Skin Exam: Dry, Warm Results - Vital Signs Recent Vital Signs: Last Vital Signs Temp 97.5 F L 11/28/18 23:15 Pulse 84 11/28/18 23:15 Resp 20 11/28/18 23:15 BP 166/75 H 11/28/18 23:15 Pulse Ox 97 11/28/18 23:15 - Labs Result Diagrams: 11/27/18 07:16 11/27/18 07:16 Labs: Laboratory Results - last 24 hr 11/28/18 11/28/18 11/28/18 11:47 16:41 20:48 POC Glucose (mg/dL) 90 188 H 253 H 11/29/18 06:08 POC Glucose (mg/dL) 274 H Assessment & Plan - Assessment and Plan (Free Text) Assessment: 68F with R sided pleural effusion Plan: - cont IV ABX - pt apprehensive about any surgical procedures - will discuss further recs with Dr. Edwards regarding IR drainage of effusion vs surgical drainage Jermaine
[2018-11-29] MEDS: (Novolog) Insulin Aspart, Recombinant 100 u/ml 10 ml vial SC SCH ×7 (08:14→21:53)
[2018-11-29] MEDS: Oxycodone/Acetaminophen 5/325 mg Tab PO PRN ×4 (08:57→23:41)
[2018-11-29] MEDS: Potassium Chloride 10 mEq ER Tab PO SCH (09:00)
[2018-11-29] MEDS: Pantoprazole 40 mg EC Tab PO SCH (09:01)
[2018-11-29] MEDS: Ciprofloxacin 400mg/200ml D5W 400 MG/200 ML BAG IVPB SCH ×2 (09:09→22:00)
[2018-11-29] MEDS: (Lantus) Insulin Glargine, Recombinant SC SCH (22:07)
[2018-11-30] MEDS: (Novolog) Insulin Aspart, Recombinant 100 u/ml 10 ml vial SC SCH ×7 (08:05→21:31)
[2018-11-30] MEDS: Ciprofloxacin 400mg/200ml D5W 400 MG/200 ML BAG IVPB SCH ×2 (08:43→21:41)
[2018-11-30] MEDS: Potassium Chloride 10 mEq ER Tab PO SCH (08:43)
[2018-11-30] MEDS: Pantoprazole 40 mg EC Tab PO SCH (09:16)
--- NOTE | 2018-11-30 09:41 | PN ---
DATE: 11/29/2018 ENDOCRINOLOGY FOLLOWUP NOTE LOCATION: Room 654. SUBJECTIVE: This is a 68-year-old female with recent uncontrolled type 2 insulin-requiring diabetes, now being followed closely for metabolic management. Her glycemic levels are fluctuating with a variability of her oral intake as noted. Her glucose levels have ranged from 253 mg/dL to 274 mg/dL. LABORATORY DATA: Her chemistries showed a BUN of 13, sodium 130, potassium 4.3, chloride 97, CO2 of 30, glucose 276, and creatinine 0.8. ASSESSMENT AND PLAN: So at this time, we will continue the same basal and bolus insulin regimen to allow for full dose equilibration especially with a variability of her oral intake as noted. We will continue the NovoLog given as 10 units three times a day before meals as ordered. We will continue the Lantus given as 30 units subcutaneous at bedtime daily as given. We will obtain serial chemistries and supplement accordingly as needed. We will follow. Elly Hannah MD
[2018-11-30] MEDS: Vancomycin 1 gm/NS 200 ml 1 GM/200 ML BAG IVPB SCH ×2 (12:25)
[2018-11-30] MEDS: Oxycodone/Acetaminophen 5/325 mg Tab PO PRN (14:08)
[2018-11-30 14:09] LABS: BASO # 0.1 K/uL (0.0-0.2); BASO % 0.4 % (0.0-2.0); EOS % 0.2 % (0.0-4.0); HEMOGLOBIN 9.6 g/dL (11.0-16.0); LYMPH # 0.7 K/uL (1.0-4.3); LYMPH % 4.8 % (20.0-40.0); MEAN CELL VOLUME 94.1 fL (81.0-99.0); MEAN CORPUSCULAR HEMOGLOBIN 30.4 pg (27.0-31.0); MEAN CORPUSCULAR HGB CONC 32.3 g/dL (33.0-37.0); MONO # 5.3 K/uL (0.0-0.8); MONO % 34.7 % (0.0-10.0); NEUT # 9.1 K/uL (1.8-7.0); NEUT % 59.9 % (50.0-75.0); PLATELET COUNT 248 K/uL (130-400); RBC 3.17 Mil/uL (3.80-5.20); RED CELL DISTRIBUTION WIDTH 13.6 % (11.5-14.5); WHITE BLOOD COUNT 15.1 K/uL (4.8-10.8)
[2018-11-30 14:25] LABS: BLOOD UREA NITROGEN 12 mg/dL (7-17); CALCIUM 8.8 mg/dl (8.6-10.4); GFR NON-AFRICAN AMERICAN > 60
--- NOTE | 2018-11-30 14:34 | CP.PCM.PN ---
Subjective - Date & Time of Evaluation Date of Evaluation: 11/30/18 Time of Evaluation: 14:32 - Subjective Subjective: Reason for consultation: Righ pleural effusion. Requested by Dr. Lynn. I have seen and examined the pt, progress notesm and imaging studies reviewed. 68 yo female with multiple comorbidities who while undergoing treatments for anion gap metabolic acidosis complained of productive cough and sob.. Ct chest showed a massive right pleural effusion and right lower lobe and upper lobe compressive atelectasis. Effusion on ct appears to be a transudate(12-15). I am inclined to recommend IR thoracentesis, and if the lung does not reexpand, I would recommend decortication. I have discussed Rx plan with Abiola Lynn and eJrmaine. For IR thoracentesis tomorrow. a/p: Right pleural effusion and compressive atelectasis of lower and upper lobe. IR thoracentesis. Decortication if IR fails to reexpand the lung. Will follow. Objective - Vital Signs/Intake and Output Vital Signs (last 24 hours): Temp Pulse Resp BP Pulse Ox 98.2 F 81 20 179/85 H 96 11/30/18 07:00 11/30/18 07:00 11/30/18 07:00 11/30/18 08:43 11/30/18 07:00 Intake and Output: 11/30/18 11/30/18 06:59 18:59 Output Total 1150 Balance -1150 - Medications Medications: Current Medications Dextrose (Dextrose 50% Inj) 0 ml IV STAT PRN; Protocol PRN Reason: Hypoglycemia Protocol Dextrose (Glutose 15) 0 gm PO ONCE PRN; Protocol PRN Reason: Hypoglycemia Protocol Docusate Sodium (Colace) 100 mg PO BID [facility] Last Admin: 11/30/18 09:16 Dose: 100 mg Glucagon (Glucagen Diagnostic Kit) 0 mg IM STAT PRN; Protocol PRN Reason: Hypoglycemia Protocol Guaifenesin/Dextromethorphan (Robitussin Dm) 5 ml PO Q4H PRN PRN Reason: Cough Last Admin: 11/27/18 09:29 Dose: 5 ml Vancomycin/Sodium Chloride (Vancomycin 1 Gm/Ns 200 Ml) 1 gm in 200 mls @ 133.333 mls/hr IVPB Q12H [facility]; Protocol Last Admin: 11/30/18 12:25 Dose: 133.333 mls/hr Ciprofloxacin (Cipro 400mg/200ml Dsw) 400 mg in 200 mls @ 133 mls/hr IVPB Q12H [facility]; Protocol Last Admin: 11/30/18 08:43 Dose: 133 mls/hr Insulin Aspart (Novolog) 0 unit SC ACHS [facility] Last Admin: 11/30/18 12:13 Dose: Not Given Insulin Aspart (Novolog) 10 unit SC AC [facility] Last Admin: 11/30/18 12:25 Dose: 10 u Insulin Glargine (Lantus) 30 unit SC HS [facility] Last Admin: 11/29/18 22:07 Dose: 30 unit Isosorbide Mononitrate (Imdur Er) 30 mg PO DAILY [facility] Last Admin: 11/30/18 09:16 Dose: 30 mg Metoprolol Tartrate (Lopressor) 25 mg PO ACBD [facility] Last Admin: 11/30/18 08:43 Dose: 25 mg Ondansetron HCl (Zofran Inj) 4 mg IVP Q4 PRN PRN Reason: Nausea/Vomiting Last Admin: 11/21/18 09:34 Dose: 4 mg Oxycodone/Acetaminophen (Percocet 5/325 Mg Tab) 1 tab PO Q4H PRN PRN Reason: Pain, severe (8-10) Stop: 12/01/18 12:06 Last Admin: 11/30/18 14:08 Dose: 1 tab Pantoprazole Sodium (Protonix Ec Tab) 40 mg PO DAILY [facility] Last Admin: 11/30/18 09:16 Dose: 40 mg Tramadol HCl (Ultram) 50 mg PO TID PRN PRN Reason: Pain, moderate (4-7) Last Admin: 11/30/18 09:16 Dose: 50 mg - Labs Labs: 11/30/18 14:02 11/30/18 14:02
[2018-11-30 14:47] LABS: BANDS 1 % (0-2); LYMPHOCYTE 5 % (20-40); MONOCYTE 31 % (0-10); NEUTROPHIL 63 % (50-75); PLATELET ESTIMATE NORMAL (NORMAL); TOTAL CELLS COUNTED 100
--- NOTE | 2018-11-30 20:08 | CP.PCM.PN ---
Subjective - Date & Time of Evaluation Date of Evaluation: 11/30/18 Time of Evaluation: 20:08 - Subjective Subjective: AFEBRILE, +VE CONGESTIVE COUGH. MILDLY DYSPNEIC AT REST. C/O RT SIDED CEST PAIN GOING TO THE BACK. EVENTS NOTED. pATIENT SEEN BY THORACIC SURGERY. RECOMMENDED FOR THORACENTESIS BY IR IN A.M. ADDENDUM; PLEASE MAKE SURE ALL THE PLEURAL FLUID IS SENT FOR THE STUDIES ORDERED IN THE EMR. PLEASE CALL IR IN A.M. SLURRY PLANT OPERATOR TO THE RADIOLOGY AND AN INFORM THEM OF THE TESTS ORDERED TO BE SENT FROM IR. PLEASE MAKE COPY OF ALL THE TESTS TO BE SENT, AND SEND IT WITH THE PATIENT. SPOKE TO RN ALINE, AND ALONZO THE RN SLURRY PLANT OPERATOR FOR THIS PATIENT 8.15 PMON 11/30/18 Objective - Vital Signs/Intake and Output Vital Signs (last 24 hours): Temp Pulse Resp BP Pulse Ox 98.4 F 96 H 20 152/75 H 95 11/30/18 16:00 11/30/18 16:00 11/30/18 16:00 11/30/18 18:08 11/30/18 16:00 Intake and Output: 11/30/18 12/01/18 18:59 06:59 Intake Total 500 Balance 500 - Medications Medications: Current Medications Dextrose (Dextrose 50% Inj) 0 ml IV STAT PRN; Protocol PRN Reason: Hypoglycemia Protocol Dextrose (Glutose 15) 0 gm PO ONCE PRN; Protocol PRN Reason: Hypoglycemia Protocol Docusate Sodium (Colace) 100 mg PO BID [facility] Last Admin: 11/30/18 18:08 Dose: 100 mg Glucagon (Glucagen Diagnostic Kit) 0 mg IM STAT PRN; Protocol PRN Reason: Hypoglycemia Protocol Guaifenesin/Dextromethorphan (Robitussin Dm) 5 ml PO Q4H PRN PRN Reason: Cough Last Admin: 11/27/18 09:29 Dose: 5 ml Vancomycin/Sodium Chloride (Vancomycin 1 Gm/Ns 200 Ml) 1 gm in 200 mls @ 133.333 mls/hr IVPB Q12H [facility]; Protocol Last Admin: 11/30/18 12:25 Dose: 133.333 mls/hr Ciprofloxacin (Cipro 400mg/200ml Dsw) 400 mg in 200 mls @ 133 mls/hr IVPB Q12H [facility]; Protocol Last Admin: 11/30/18 08:43 Dose: 133 mls/hr Insulin Aspart (Novolog) 0 unit SC ACHS [facility] Last Admin: 11/30/18 17:02 Dose: Not Given Insulin Aspart (Novolog) 10 unit SC AC [facility] Last Admin: 11/30/18 17:03 Dose: Not Given Insulin Glargine (Lantus) 30 unit SC HS [facility] Last Admin: 11/29/18 22:07 Dose: 30 unit Isosorbide Mononitrate (Imdur Er) 30 mg PO DAILY [facility] Last Admin: 11/30/18 09:16 Dose: 30 mg Metoprolol Tartrate (Lopressor) 25 mg PO ACBD [facility] Last Admin: 11/30/18 18:08 Dose: 25 mg Ondansetron HCl (Zofran Inj) 4 mg IVP Q4 PRN PRN Reason: Nausea/Vomiting Last Admin: 11/21/18 09:34 Dose: 4 mg Oxycodone/Acetaminophen (Percocet 5/325 Mg Tab) 2 tab PO Q4H PRN PRN Reason: Pain, severe (8-10) Stop: 12/03/18 19:42 Pantoprazole Sodium (Protonix Ec Tab) 40 mg PO DAILY [facility] Last Admin: 11/30/18 09:16 Dose: 40 mg - Labs Labs: 11/30/18 14:02 11/30/18 14:02 - Constitutional Appears: No Acute Distress, Chronically Ill - Head Exam Head Exam: NORMAL INSPECTION - Eye Exam Eye Exam: EOMI, PERRL - ENT Exam ENT Exam: Normal Oropharynx - Neck Exam Neck Exam: Normal Inspection - Respiratory Exam Respiratory Exam: Chest Wall Tenderness, Decreased Breath Sounds (RT SIDE) - Cardiovascular Exam Cardiovascular Exam: REGULAR RHYTHM, +S1, +S2 - GI/Abdominal Exam GI & Abdominal Exam: Soft, Normal Bowel Sounds - Extremities Exam Extremities Exam: Normal Capillary Refill. absent: Calf Tenderness, Pedal Edema - Neurological Exam Neurological Exam: Awake, CN II-XII Intact, Oriented x3, Reflexes Normal - Psychiatric Exam Psychiatric exam: Normal Mood - Skin Skin Exam: Normal Color, Warm Assessment and Plan (1) Sepsis syndrome Status: Acute (2) DKA (diabetic ketoacidoses) Status: Resolved (3) Abdominal pain Status: Acute (4) Insulin dependent diabetes mellitus Status: Chronic (5) Hypertension Status: Chronic - Assessment and Plan (Free Text) Plan: CONTINUE CIPRO 400 MG iv PIGGYBACK EVERY 12 HOURLY 11/18/18. CONTINUE IV VANCOMYCIN 1000 MG IVPB Q 12HRLY 11/20 ADD IV FLAGYL 500MG IVPB Q 8HRLY 11/28/18 TB W/U IN PROGRESS (ABNORMAL CT CHEST )-VE SO FAR SPUTUM FOR AFB SMEAR X 3 -VE. QFT -GOLD TB TEST -VE PT FOR RT SIDED THORACENTESIS IN A.M. APPROPRITE BACTERIAL,AFB AND FUNGAL SMEARS AND CULTURES R/O EMPYEMA/? DRAINAGE- ORDERS WRITTEN.. DISCUSSED WITH STAFF MS PIOTR MIRELES COVERING FOR Alonzo SALDAÑA PT ON RESPIRATORY TREATMENTS.
[2018-11-30] MEDS: (Lantus) Insulin Glargine, Recombinant SC SCH (21:41)
--- NOTE | 2018-12-01 00:07 | CP.PCM.PN ---
Subjective - Date & Time of Evaluation Date of Evaluation: 11/30/18 Time of Evaluation: 19:00 - Subjective Subjective: Patient evaluated by Dr Edwards. For a right thoracentesis. Patient still with a productive cough and severe right chest pain. Objective - Vital Signs/Intake and Output Vital Signs (last 24 hours): Temp Pulse Resp BP Pulse Ox 98.4 F 96 H 20 152/75 H 95 11/30/18 16:00 11/30/18 16:00 11/30/18 16:00 11/30/18 18:08 11/30/18 16:00 Intake and Output: 11/30/18 12/01/18 18:59 06:59 Intake Total 500 Balance 500 - Medications Medications: Current Medications Dextrose (Dextrose 50% Inj) 0 ml IV STAT PRN; Protocol PRN Reason: Hypoglycemia Protocol Dextrose (Glutose 15) 0 gm PO ONCE PRN; Protocol PRN Reason: Hypoglycemia Protocol Docusate Sodium (Colace) 100 mg PO BID [facility] Last Admin: 11/30/18 18:08 Dose: 100 mg Glucagon (Glucagen Diagnostic Kit) 0 mg IM STAT PRN; Protocol PRN Reason: Hypoglycemia Protocol Guaifenesin/Dextromethorphan (Robitussin Dm) 5 ml PO Q4H PRN PRN Reason: Cough Last Admin: 11/27/18 09:29 Dose: 5 ml Vancomycin/Sodium Chloride (Vancomycin 1 Gm/Ns 200 Ml) 1 gm in 200 mls @ 133.333 mls/hr IVPB Q12H [facility]; Protocol Last Admin: 11/30/18 12:25 Dose: 133.333 mls/hr Ciprofloxacin (Cipro 400mg/200ml Dsw) 400 mg in 200 mls @ 133 mls/hr IVPB Q12H [facility]; Protocol Last Admin: 11/30/18 21:41 Dose: 133 mls/hr Insulin Aspart (Novolog) 0 unit SC ACHS [facility] Last Admin: 11/30/18 21:31 Dose: Not Given Insulin Aspart (Novolog) 10 unit SC AC [facility] Last Admin: 11/30/18 17:03 Dose: Not Given Insulin Glargine (Lantus) 30 unit SC HS [facility] Last Admin: 11/30/18 21:41 Dose: 30 unit Isosorbide Mononitrate (Imdur Er) 30 mg PO DAILY [facility] Last Admin: 11/30/18 09:16 Dose: 30 mg Metoprolol Tartrate (Lopressor) 25 mg PO ACBD [facility] Last Admin: 11/30/18 18:08 Dose: 25 mg Oxycodone/Acetaminophen (Percocet 5/325 Mg Tab) 2 tab PO Q4H PRN PRN Reason: Pain, severe (8-10) Stop: 12/03/18 19:42 Pantoprazole Sodium (Protonix Ec Tab) 40 mg PO DAILY [facility] Last Admin: 11/30/18 09:16 Dose: 40 mg - Labs Labs: 11/30/18 14:02 11/30/18 14:02 - Constitutional Appears: No Acute Distress, Chronically Ill - Head Exam Head Exam: NORMOCEPHALIC - Eye Exam Eye Exam: Normal appearance - ENT Exam ENT Exam: Normal Exam - Neck Exam Neck Exam: Normal Inspection - Respiratory Exam Respiratory Exam: Rhonchi Additional comments: Decreased breathing sounds at the right base. - Cardiovascular Exam Cardiovascular Exam: REGULAR RHYTHM - GI/Abdominal Exam GI & Abdominal Exam: Soft, Normal Bowel Sounds - Rectal Exam Rectal Exam: Deferred - Extremities Exam Extremities Exam: Normal Inspection - Back Exam Back Exam: NORMAL INSPECTION - Neurological Exam Neurological Exam: Alert, Awake, Oriented x3 - Psychiatric Exam Psychiatric exam: Anxious - Skin Skin Exam: Dry, Intact, Normal Color Assessment and Plan (1) DKA (diabetic ketoacidoses) Status: Resolved (2) Acute exacerbation of chronic low back pain Status: Chronic (3) Sepsis syndrome Status: Acute (4) Bilateral bronchopneumonia Status: Acute (5) Recurrent right pleural effusion Assessment & Plan: For a thoracentesis. Status: Acute
--- NOTE | 2018-12-01 00:32 | PN ---
DATE: 11/30/2018 ENDOCRINOLOGY FOLLOWUP NOTE LOCATION: Room 654. SUBJECTIVE: This is a 68-year-old female with recent uncontrolled type 2 insulin-requiring diabetes, now being followed closely for metabolic management. Her glycemic levels also are fluctuating with a variability of her oral intake and the glucose values overnight have ranged from 206 to 219 mg/dL. Her latest chemistries showed a BUN of 13, sodium 130, potassium 4.3, chloride 97, CO2 of 30, glucose 276, and creatinine 0.8. So at this time, we will continue the same basal and bolus insulin regimen to allow for dose equilibration and keep her on the NovoLog given as 10 units three times a day before meals as ordered. We will continue her basal insulin given as Lantus at 30 units subcutaneous at bedtime daily as given. We will obtain serial chemistries and supplement accordingly as needed. We will follow. Elly Hannah MD
[2018-12-01] MEDS: Vancomycin 1 gm/NS 200 ml 1 GM/200 ML BAG IVPB SCH ×2 (00:57→13:30)
--- NOTE | 2018-12-01 07:36 | CP.PCM.PN ---
Subjective - Date & Time of Evaluation Date of Evaluation: 12/01/18 Time of Evaluation: 07:10 - Subjective Subjective: Surgery progress note for Dr. Edwards. Patient seen and examined at bedside. No overnight events reported. Patient still has productive cough. Patient offers no other complaints. Denies chest pain, SOB, abd pain, nausea, vomiting. Patient is scheduled for IR thoracentesis later today. Objective - Vital Signs/Intake and Output Vital Signs (last 24 hours): Temp Pulse Resp BP Pulse Ox 98.2 F 101 H 20 163/70 H 98 12/01/18 00:00 12/01/18 00:00 12/01/18 00:00 12/01/18 00:00 12/01/18 00:00 Intake and Output: 12/01/18 12/01/18 06:59 18:59 Intake Total 440 Balance 440 - Medications Medications: Current Medications Dextrose (Dextrose 50% Inj) 0 ml IV STAT PRN; Protocol PRN Reason: Hypoglycemia Protocol Dextrose (Glutose 15) 0 gm PO ONCE PRN; Protocol PRN Reason: Hypoglycemia Protocol Docusate Sodium (Colace) 100 mg PO BID [facility] Last Admin: 11/30/18 18:08 Dose: 100 mg Glucagon (Glucagen Diagnostic Kit) 0 mg IM STAT PRN; Protocol PRN Reason: Hypoglycemia Protocol Guaifenesin/Dextromethorphan (Robitussin Dm) 5 ml PO Q4H PRN PRN Reason: Cough Last Admin: 11/27/18 09:29 Dose: 5 ml Vancomycin/Sodium Chloride (Vancomycin 1 Gm/Ns 200 Ml) 1 gm in 200 mls @ 133.333 mls/hr IVPB Q12H [facility]; Protocol Last Admin: 12/01/18 00:57 Dose: 133.333 mls/hr Ciprofloxacin (Cipro 400mg/200ml Dsw) 400 mg in 200 mls @ 133 mls/hr IVPB Q12H [facility]; Protocol Last Admin: 11/30/18 21:41 Dose: 133 mls/hr Insulin Aspart (Novolog) 0 unit SC ACHS [facility] Last Admin: 11/30/18 21:31 Dose: Not Given Insulin Aspart (Novolog) 10 unit SC AC [facility] Last Admin: 11/30/18 17:03 Dose: Not Given Insulin Glargine (Lantus) 30 unit SC HS [facility] Last Admin: 11/30/18 21:41 Dose: 30 unit Isosorbide Mononitrate (Imdur Er) 30 mg PO DAILY [facility] Last Admin: 11/30/18 09:16 Dose: 30 mg Metoprolol Tartrate (Lopressor) 25 mg PO ACBD [facility] Last Admin: 11/30/18 18:08 Dose: 25 mg Oxycodone/Acetaminophen (Percocet 5/325 Mg Tab) 2 tab PO Q4H PRN PRN Reason: Pain, severe (8-10) Stop: 12/03/18 19:42 Pantoprazole Sodium (Protonix Ec Tab) 40 mg PO DAILY [facility] Last Admin: 11/30/18 09:16 Dose: 40 mg - Labs Labs: 11/30/18 14:02 11/30/18 14:02 - Constitutional Appears: Non-toxic, No Acute Distress - Head Exam Head Exam: NORMAL INSPECTION - Eye Exam Eye Exam: Normal appearance - ENT Exam ENT Exam: Mucous Membranes Moist - Respiratory Exam Respiratory Exam: Rales Additional comments: B/L lower lobe rales R > L - Cardiovascular Exam Additional comments: RR - GI/Abdominal Exam GI & Abdominal Exam: Soft, Normal Bowel Sounds - Extremities Exam Extremities Exam: absent: Pedal Edema - Neurological Exam Neurological Exam: Alert, Awake, Oriented x3 - Psychiatric Exam Psychiatric exam: Normal Affect, Normal Mood - Skin Skin Exam: Dry, Intact, Normal Color, Warm Assessment and Plan - Assessment and Plan (Free Text) Assessment: 68F with R sided pleural effusion Plan: - cont IV ABX - pt apprehensive about any surgical procedures - scheduled for IR drain of pleural effusion 12/01 - f/u fluid studies Lewis Grier, PGY1
[2018-12-01] MEDS: (Novolog) Insulin Aspart, Recombinant 100 u/ml 10 ml vial SC SCH ×7 (08:05→21:28)
[2018-12-01] MEDS: Ciprofloxacin 400mg/200ml D5W 400 MG/200 ML BAG IVPB SCH ×2 (10:05→21:46)
--- NOTE | 2018-12-01 10:08 | PCM.SURG1 ---
Surgeon's Initial Post Op Note - Surgeon's Notes Surgeon: Chris Ramirez MD Cutting Machine Tender Decorative: NONE Type of Anesthesia: Local Pre-Operative Diagnosis: Loculated right pleural effusion Operative Findings: US showed a complex, multiseptated right pleural collection. Post-Operative Diagnosis: Loculated right pleural effusion Operation Performed: Right pleural drainage. The collection was too thick for adequate drainage from pigtail catheter. Discussed with referring MD and recommend large chest tube. Specimen/Specimens Removed: 40 cc of yellow, cloudy fluid Estimated Blood Loss: EBL {In ML}: 2 Blood Products Given: N/A Drains Used: No Drains Post-Op Condition: Fair Date of Surgery/Procedure: 12/01/18 Time of Surgery/Procedure: 10:00
[2018-12-01] MEDS: Pantoprazole 40 mg EC Tab PO SCH (10:18)
--- NOTE | 2018-12-01 14:16 | CP.PCM.PN ---
Subjective - Date & Time of Evaluation Date of Evaluation: 12/01/18 Time of Evaluation: 14:15 - Subjective Subjective: S/P IR ATTEMPT FOR THORACENTESIS. 40CC HAZY FLUID OBTAINED UNABLE TO DRAIN WITH PIGTAIL CATHETER. PATIENT NOW SCHEDULED FOR THORACOTOMY/PLEURAL BIOPSY AND DECORTICATION PER SURGER ON FRIDAY. CONTINUE iv ANTIBIOTICS. Objective - Vital Signs/Intake and Output Vital Signs (last 24 hours): Temp Pulse Resp BP Pulse Ox 97.8 F 83 18 164/71 H 98 12/01/18 07:00 12/01/18 07:00 12/01/18 07:00 12/01/18 08:38 12/01/18 07:00 Intake and Output: 12/01/18 12/01/18 06:59 18:59 Intake Total 440 Balance 440 - Medications Medications: Current Medications Dextrose (Dextrose 50% Inj) 0 ml IV STAT PRN; Protocol PRN Reason: Hypoglycemia Protocol Dextrose (Glutose 15) 0 gm PO ONCE PRN; Protocol PRN Reason: Hypoglycemia Protocol Docusate Sodium (Colace) 100 mg PO BID [facility] Last Admin: 12/01/18 10:18 Dose: 100 mg Glucagon (Glucagen Diagnostic Kit) 0 mg IM STAT PRN; Protocol PRN Reason: Hypoglycemia Protocol Guaifenesin/Dextromethorphan (Robitussin Dm) 5 ml PO Q4H PRN PRN Reason: Cough Last Admin: 11/27/18 09:29 Dose: 5 ml Vancomycin/Sodium Chloride (Vancomycin 1 Gm/Ns 200 Ml) 1 gm in 200 mls @ 133.333 mls/hr IVPB Q12H [facility]; Protocol Last Admin: 12/01/18 00:57 Dose: 133.333 mls/hr Ciprofloxacin (Cipro 400mg/200ml Dsw) 400 mg in 200 mls @ 133 mls/hr IVPB Q12H [facility]; Protocol Last Admin: 12/01/18 10:05 Dose: 133 mls/hr Insulin Aspart (Novolog) 0 unit SC ACHS [facility] Last Admin: 12/01/18 11:40 Dose: Not Given Insulin Aspart (Novolog) 10 unit SC AC [facility] Last Admin: 12/01/18 11:41 Dose: 10 units Insulin Glargine (Lantus) 30 unit SC HS [facility] Last Admin: 11/30/18 21:41 Dose: 30 unit Isosorbide Mononitrate (Imdur Er) 30 mg PO DAILY [facility] Last Admin: 12/01/18 10:18 Dose: 30 mg Metoprolol Tartrate (Lopressor) 25 mg PO ACBD [facility] Last Admin: 12/01/18 08:38 Dose: 25 mg Oxycodone/Acetaminophen (Percocet 5/325 Mg Tab) 2 tab PO Q4H PRN PRN Reason: Pain, severe (8-10) Stop: 12/03/18 19:42 Pantoprazole Sodium (Protonix Ec Tab) 40 mg PO DAILY [facility] Last Admin: 12/01/18 10:18 Dose: 40 mg - Labs Labs: 11/30/18 14:02 11/30/18 14:02 - Constitutional Appears: No Acute Distress - Head Exam Head Exam: NORMAL INSPECTION - Eye Exam Eye Exam: EOMI, PERRL - ENT Exam ENT Exam: Normal Oropharynx - Neck Exam Neck Exam: Normal Inspection - Respiratory Exam Respiratory Exam: Decreased Breath Sounds (RT SIDE) - Cardiovascular Exam Cardiovascular Exam: REGULAR RHYTHM, +S1, +S2 - GI/Abdominal Exam GI & Abdominal Exam: Soft, Normal Bowel Sounds - Extremities Exam Extremities Exam: absent: Calf Tenderness, Pedal Edema - Neurological Exam Neurological Exam: Awake, CN II-XII Intact, Oriented x3, Reflexes Normal - Skin Skin Exam: Normal Color, Warm Assessment and Plan (1) Sepsis syndrome Status: Acute (2) DKA (diabetic ketoacidoses) Status: Resolved (3) Abdominal pain Status: Acute (4) Insulin dependent diabetes mellitus Status: Chronic (5) Hypertension Status: Chronic - Assessment and Plan (Free Text) Plan: CONTINUE CIPRO 400 MG iv PIGGYBACK EVERY 12 HOURLY 11/18/18. CONTINUE IV VANCOMYCIN 1000 MG IVPB Q 12HRLY 11/20 ADD IV FLAGYL 500MG IVPB Q 8HRLY 11/28/18 PT FOR RIGHT THORACOTOMY/PLEURAL BIOPSY/? DECORTICATION VS CHEST TUBE ON friday PER SURGERY.
[2018-12-01] MEDS: Oxycodone/Acetaminophen 5/325 mg Tab PO PRN ×2 (14:44→21:47)
--- NOTE | 2018-12-01 14:44 | CP.PCM.PN ---
Subjective - Date & Time of Evaluation Date of Evaluation: 12/01/18 Time of Evaluation: 14:36 - Subjective Subjective: Pt s/e wbc-15k on antibiotics. IR Thoracentesis right today: yielded only 40 cc of thick exudates from multiseptated loculated empyema, right. I am inclined to recommend a right thoracotomy, decortication, bx pleura and lung. Thoracoscope will help to free up the apex. I have discussed the procedure with the pt who accepted surgery without reservation. d/w Dr Dean. For surgery on Friday. Objective - Vital Signs/Intake and Output Vital Signs (last 24 hours): Temp Pulse Resp BP Pulse Ox 97.8 F 83 18 164/71 H 98 12/01/18 07:00 12/01/18 07:00 12/01/18 07:00 12/01/18 08:38 12/01/18 07:00 Intake and Output: 12/01/18 12/01/18 06:59 18:59 Intake Total 440 Balance 440 - Medications Medications: Current Medications Dextrose (Dextrose 50% Inj) 0 ml IV STAT PRN; Protocol PRN Reason: Hypoglycemia Protocol Dextrose (Glutose 15) 0 gm PO ONCE PRN; Protocol PRN Reason: Hypoglycemia Protocol Docusate Sodium (Colace) 100 mg PO BID [facility] Last Admin: 12/01/18 10:18 Dose: 100 mg Glucagon (Glucagen Diagnostic Kit) 0 mg IM STAT PRN; Protocol PRN Reason: Hypoglycemia Protocol Guaifenesin/Dextromethorphan (Robitussin Dm) 5 ml PO Q4H PRN PRN Reason: Cough Last Admin: 11/27/18 09:29 Dose: 5 ml Vancomycin/Sodium Chloride (Vancomycin 1 Gm/Ns 200 Ml) 1 gm in 200 mls @ 133.333 mls/hr IVPB Q12H [facility]; Protocol Last Admin: 12/01/18 00:57 Dose: 133.333 mls/hr Ciprofloxacin (Cipro 400mg/200ml Dsw) 400 mg in 200 mls @ 133 mls/hr IVPB Q12H [facility]; Protocol Last Admin: 12/01/18 10:05 Dose: 133 mls/hr Insulin Aspart (Novolog) 0 unit SC ACHS [facility] Last Admin: 12/01/18 11:40 Dose: Not Given Insulin Aspart (Novolog) 10 unit SC AC [facility] Last Admin: 12/01/18 11:41 Dose: 10 units Insulin Glargine (Lantus) 30 unit SC HS [facility] Last Admin: 11/30/18 21:41 Dose: 30 unit Isosorbide Mononitrate (Imdur Er) 30 mg PO DAILY [facility] Last Admin: 12/01/18 10:18 Dose: 30 mg Metoprolol Tartrate (Lopressor) 25 mg PO ACBD [facility] Last Admin: 12/01/18 08:38 Dose: 25 mg Oxycodone/Acetaminophen (Percocet 5/325 Mg Tab) 2 tab PO Q4H PRN PRN Reason: Pain, severe (8-10) Stop: 12/03/18 19:42 Pantoprazole Sodium (Protonix Ec Tab) 40 mg PO DAILY [facility] Last Admin: 12/01/18 10:18 Dose: 40 mg - Labs Labs: 11/30/18 14:02 11/30/18 14:02
--- NOTE | 2018-12-01 16:32 | CP.PCM.PN ---
Subjective - Date & Time of Evaluation Date of Evaluation: 12/01/18 Time of Evaluation: 16:12 - Subjective Subjective: Patient scheduled for a right thoracotomy with chest tube insertion and decortication on Friday. Patient still has a productive cough with right chest pain. On IV antibiotics. Objective - Vital Signs/Intake and Output Vital Signs (last 24 hours): Temp Pulse Resp BP Pulse Ox 97.8 F 83 18 164/71 H 98 12/01/18 07:00 12/01/18 07:00 12/01/18 07:00 12/01/18 08:38 12/01/18 07:00 Intake and Output: 12/01/18 12/01/18 06:59 18:59 Intake Total 440 Balance 440 - Medications Medications: Current Medications Dextrose (Dextrose 50% Inj) 0 ml IV STAT PRN; Protocol PRN Reason: Hypoglycemia Protocol Dextrose (Glutose 15) 0 gm PO ONCE PRN; Protocol PRN Reason: Hypoglycemia Protocol Docusate Sodium (Colace) 100 mg PO BID [facility] Last Admin: 12/01/18 10:18 Dose: 100 mg Glucagon (Glucagen Diagnostic Kit) 0 mg IM STAT PRN; Protocol PRN Reason: Hypoglycemia Protocol Guaifenesin/Dextromethorphan (Robitussin Dm) 5 ml PO Q4H PRN PRN Reason: Cough Last Admin: 11/27/18 09:29 Dose: 5 ml Vancomycin/Sodium Chloride (Vancomycin 1 Gm/Ns 200 Ml) 1 gm in 200 mls @ 133. 333 mls/hr IVPB Q12H [facility]; Protocol Last Admin: 12/01/18 13:30 Dose: 133.333 mls/hr Ciprofloxacin (Cipro 400mg/200ml Dsw) 400 mg in 200 mls @ 133 mls/hr IVPB Q12H [facility]; Protocol Last Admin: 12/01/18 10:05 Dose: 133 mls/hr Insulin Aspart (Novolog) 0 unit SC ACHS [facility] Last Admin: 12/01/18 11:40 Dose: Not Given Insulin Aspart (Novolog) 10 unit SC AC [facility] Last Admin: 12/01/18 11:41 Dose: 10 units Insulin Glargine (Lantus) 30 unit SC HS [facility] Last Admin: 11/30/18 21:41 Dose: 30 unit Isosorbide Mononitrate (Imdur Er) 30 mg PO DAILY [facility] Last Admin: 12/01/18 10:18 Dose: 30 mg Metoprolol Tartrate (Lopressor) 25 mg PO ACBD [facility] Last Admin: 12/01/18 08:38 Dose: 25 mg Oxycodone/Acetaminophen (Percocet 5/325 Mg Tab) 2 tab PO Q4H PRN PRN Reason: Pain, severe (8-10) Stop: 12/03/18 19:42 Last Admin: 12/01/18 14:44 Dose: 2 tab Pantoprazole Sodium (Protonix Ec Tab) 40 mg PO DAILY [facility] Last Admin: 12/01/18 10:18 Dose: 40 mg - Labs Labs: 11/30/18 14:02 11/30/18 14:02 - Constitutional Appears: No Acute Distress, Chronically Ill - Head Exam Head Exam: NORMAL INSPECTION - Eye Exam Eye Exam: Normal appearance - ENT Exam ENT Exam: Normal Exam - Neck Exam Neck Exam: Normal Inspection - Respiratory Exam Respiratory Exam: Rhonchi Additional comments: Decreased breathing sounds right base. - Cardiovascular Exam Cardiovascular Exam: REGULAR RHYTHM - GI/Abdominal Exam GI & Abdominal Exam: Soft, Normal Bowel Sounds - Rectal Exam Rectal Exam: Deferred - Extremities Exam Extremities Exam: Normal Inspection - Back Exam Back Exam: vertebral tenderness - Neurological Exam Neurological Exam: Alert, Awake, Oriented x3 - Psychiatric Exam Psychiatric exam: Anxious - Skin Skin Exam: Dry, Intact, Normal Color, Warm Assessment and Plan (1) DKA (diabetic ketoacidoses) Status: Resolved (2) Acute exacerbation of chronic low back pain Status: Chronic (3) Sepsis syndrome Status: Acute (4) Bilateral bronchopneumonia Status: Acute (5) Recurrent right pleural effusion Assessment & Plan: For chest tube insertion, decortication on Friday. Status: Acute
[2018-12-01] MEDS: (Lantus) Insulin Glargine, Recombinant SC SCH (21:46)
[2018-12-02] MEDS: Vancomycin 1 gm/NS 200 ml 1 GM/200 ML BAG IVPB SCH ×2 (01:00→12:27)
[2018-12-02] MEDS: Oxycodone/Acetaminophen 5/325 mg Tab PO PRN ×4 (06:35→23:00)
--- NOTE | 2018-12-02 06:38 | PN ---
DATE: 12/01/2018 ENDOCRINOLOGY FOLLOWUP NOTE LOCATION: Room 654. This is 68-year-old female with recent uncontrolled type 2 insulin-requiring diabetes, now being followed closely for metabolic management. Her glycemic levels are fluctuating, but improved. Her glucose values have ranged from 162 to 178 mg/dL. Her chemistry showed a BUN of 12, sodium 137, potassium 4.3, chloride , CO2 of 27, glucose 210, and creatinine 0.8. So at this time, we will continue the same basal and bolus insulin regimen as given with NovoLog at 10 units t.i.d and Lantus 30 units subcu at bedtime daily as given. We will obtain serial chemistries and supplement accordingly as needed. We will follow. Elly Hannah MD
[2018-12-02] MEDS: (Novolog) Insulin Aspart, Recombinant 100 u/ml 10 ml vial SC SCH ×7 (07:31→22:39)
--- NOTE | 2018-12-02 07:39 | CP.PCM.PN ---
Subjective - Date & Time of Evaluation Date of Evaluation: 12/02/18 Time of Evaluation: 06:30 - Subjective Subjective: Surgery progress note for Dr. Edwards. Patient seen and examined at bedside. Patient is POD # 1 s/p R sided pleural drainage by IR. 40 cc yellow thick fluid collected; will require further intervention for further collection. Patient states she feels the same as previous days, slightly SOB w/ persistent cough. Patient denies chest pain, abdominal pain, nausea, vomiting, diarrhea, constipation, dysuria, hematuria. Objective - Vital Signs/Intake and Output Vital Signs (last 24 hours): Temp Pulse Resp BP Pulse Ox 98.0 F 86 18 170/70 H 95 12/02/18 07:10 12/02/18 07:10 12/02/18 07:10 12/02/18 07:10 12/02/18 07:10 Intake and Output: 12/02/18 12/02/18 06:59 18:59 Output Total 200 Balance -200 - Medications Medications: Current Medications Dextrose (Dextrose 50% Inj) 0 ml IV STAT PRN; Protocol PRN Reason: Hypoglycemia Protocol Dextrose (Glutose 15) 0 gm PO ONCE PRN; Protocol PRN Reason: Hypoglycemia Protocol Docusate Sodium (Colace) 100 mg PO BID [facility] Last Admin: 12/01/18 17:53 Dose: 100 mg Glucagon (Glucagen Diagnostic Kit) 0 mg IM STAT PRN; Protocol PRN Reason: Hypoglycemia Protocol Guaifenesin/Dextromethorphan (Robitussin Dm) 5 ml PO Q4H PRN PRN Reason: Cough Last Admin: 11/27/18 09:29 Dose: 5 ml Vancomycin/Sodium Chloride (Vancomycin 1 Gm/Ns 200 Ml) 1 gm in 200 mls @ 133.333 mls/hr IVPB Q12H [facility]; Protocol Last Admin: 12/02/18 01:00 Dose: 133.333 mls/hr Ciprofloxacin (Cipro 400mg/200ml Dsw) 400 mg in 200 mls @ 133 mls/hr IVPB Q12H [facility]; Protocol Last Admin: 12/01/18 21:46 Dose: 133 mls/hr Insulin Aspart (Novolog) 0 unit SC ACHS [facility] Last Admin: 12/02/18 07:31 Dose: Not Given Insulin Aspart (Novolog) 10 unit SC AC [facility] Last Admin: 12/01/18 17:59 Dose: 10 units Insulin Glargine (Lantus) 30 unit SC HS [facility] Last Admin: 12/01/18 21:46 Dose: 30 unit Isosorbide Mononitrate (Imdur Er) 30 mg PO DAILY [facility] Last Admin: 12/01/18 10:18 Dose: 30 mg Metoprolol Tartrate (Lopressor) 25 mg PO ACBD [facility] Last Admin: 12/01/18 17:59 Dose: 25 mg Oxycodone/Acetaminophen (Percocet 5/325 Mg Tab) 2 tab PO Q4H PRN PRN Reason: Pain, severe (8-10) Stop: 12/03/18 19:42 Last Admin: 12/02/18 06:35 Dose: 2 tab Pantoprazole Sodium (Protonix Ec Tab) 40 mg PO DAILY [facility] Last Admin: 12/01/18 10:18 Dose: 40 mg - Labs Labs: 11/30/18 14:02 11/30/18 14:02 - Constitutional Appears: Non-toxic, No Acute Distress - Head Exam Head Exam: NORMAL INSPECTION - Eye Exam Eye Exam: Normal appearance - ENT Exam ENT Exam: Mucous Membranes Moist - Respiratory Exam Respiratory Exam: Rales, NORMAL BREATHING PATTERN Additional comments: B/L rales R >L - Cardiovascular Exam Cardiovascular Exam: +S1, +S2 - GI/Abdominal Exam GI & Abdominal Exam: Soft, Normal Bowel Sounds - Extremities Exam Extremities Exam: absent: Calf Tenderness, Pedal Edema - Back Exam Back Exam: absent: CVA tenderness (L), CVA tenderness (R) Additional comments: band aid on R mid thoracic at site of IR drainage, clean dry, intact - Neurological Exam Neurological Exam: Alert, Awake - Psychiatric Exam Psychiatric exam: Normal Affect, Normal Mood - Skin Skin Exam: Dry, Intact, Normal Color, Warm Assessment and Plan - Assessment and Plan (Free Text) Assessment: 68F with R sided pleural effusion, POD # 1 s/p IR R pleural drainage Plan: - cont IV ABX - VATS vs Thoracotomy on 12/04 - Will need cardio & pulm clearance - Medically optimization prior to OR - f/u fluid studies Lewis Grier, PGY1
[2018-12-02] MEDS: Pantoprazole 40 mg EC Tab PO SCH (09:59)
[2018-12-02] MEDS: Ciprofloxacin 400mg/200ml D5W 400 MG/200 ML BAG IVPB SCH ×2 (09:59→20:03)
--- NOTE | 2018-12-02 12:26 | CARD ---
APPROVED REPORT Date of service: 12/02/2018 EXAM: Two-dimensional and M-mode echocardiogram with Doppler and color Doppler. INDICATION Dizziness and Vertigo Dyspnea CAD RISK FACTORS Hypertension Diabetes 2D DIMENSIONS IVSd1.3 (0.7-1.1cm)LVDd4.2 (3.9-5.9cm) PWd1.3 (0.7-1.1cm)LA Pezior50 (18-58mL) LVDs2.7 (2.5-4.0cm)FS (%) 37.1 % LVEF (%)67.5 (>50%)LVEF (Banks's)67.64 % M-Mode DIMENSIONS Left Atrium (MM)4.78 (2.5-4.0cm)IVSd1.27 (0.7-1.1cm) Aortic Root3.17 (2.2-3.7cm)LVDd4.16 (4.0-5.6cm) Aortic Cusp Exc.1.96 (1.5-2.0cm)PWd1.23 (0.7-1.1cm) FS (%) 35 %LVDs2.71 (2.0-3.8cm) LVEF (%)65 (>50%) Aortic Valve AI P 1/2 [id number] Mitral Valve MV E Lmzffvxx21.1cm/sMV A Tywldnpn764.5cm/sE/A ratio0.7 TDI Lateral E' Peak V7.58cm/sMedial E' Peak V5.25cm/sE/Lateral E'10.3 E/Medial E'14.9 Tricuspid Valve TR Peak [id number]/sTR Peak Gr.[id number] LEFT VENTRICLE The left ventricle is normal size. There is moderate concentric left ventricular hypertrophy. The Ejection Fraction is 65-70%. There is normal LV segmental wall motion. Transmitral Doppler flow pattern is Grade I-abnormal relaxation pattern. moderately increased la volume index of 54 mm/sqm. RIGHT VENTRICLE The right ventricle is normal size. The right ventricular systolic function is normal. ATRIA The left atrium is moderately dilated. The right atrium size is normal. The interatrial septum is intact with no evidence for an atrial septal defect. AORTIC VALVE The aortic valve is trileaflet. There is mild to moderate aortic regurgitation. MITRAL VALVE The mitral valve is normal in structure. Mitral regurgitation is mild. TRICUSPID VALVE The tricuspid valve is normal in structure. There is mild tricuspid regurgitation. Right ventricular systolic pressure is estimated at 36 mmHg. There is mild pulmonary hypertension. PULMONIC VALVE The pulmonary valve is normal in structure. There is mild pulmonic valvular regurgitation. GREAT VESSELS The aortic root is normal in size. PERICARDIAL EFFUSION There is no pericardial effusion. <Conclusion> The left ventricle is normal size. There is moderate concentric left ventricular hypertrophy. The Ejection Fraction is 65-70%. Transmitral Doppler flow pattern is Grade I-abnormal relaxation pattern. moderately increased la volume index of 54 mm/sqm. The left atrium is moderately dilated. The left atrium is moderately dilated. The aortic valve is trileaflet. There is mild to moderate aortic regurgitation. Mitral regurgitation is mild. There is mild tricuspid regurgitation. Right ventricular systolic pressure is estimated at 36 mmHg. There is mild pulmonary hypertension. The aortic root is normal in size. There is no pericardial effusion.
--- NOTE | 2018-12-02 13:16 | US ---
PROCEDURE: Date of procedure: 12/01/2018 Procedure: 1. Ultrasound-guided right chest HISTORY: Right pleural effusion, shortness of breath, pneumonia TECHNIQUE: Following informed consent, limb ultrasound right chest was performed. Ultrasound showed a complex pleural right collection. The patient right chest was prepped and draped in the usual sterile fashion. After skin anesthetized with 2 percent lidocaine, a drainage catheter was advanced into the pleural space. No significant fluid could be aspirated secondary to the a thick septation of the collection. 40 cubic centimeters of slightly cloudy yellow fluid was sent for culture sensitivity. IMPRESSION: Complex right pleural collection. A trip to drainage resulted in 40 cubic centimeters of fluid. The collection is not amenable to a pigtail drainage.
--- NOTE | 2018-12-02 15:09 | CP.PCM.PN ---
Subjective - Date & Time of Evaluation Date of Evaluation: 12/02/18 Time of Evaluation: 15:09 - Subjective Subjective: AFEBRILE, +VE PERSISTEN COUGH, DYSPNEIC. NO ACUTE EVENTS SEEN BY CTS AWAITING SURGERY. IS FLUID ASPIRATE SENT FOR TESTING FROM IR. ? AWAITING RESULTS. Objective - Vital Signs/Intake and Output Vital Signs (last 24 hours): Temp Pulse Resp BP Pulse Ox 98.0 F 86 18 176/72 H 95 12/02/18 07:10 12/02/18 07:10 12/02/18 07:10 12/02/18 07:57 12/02/18 07:10 Intake and Output: 12/02/18 12/02/18 06:59 18:59 Intake Total 440 Output Total 200 Balance 240 - Medications Medications: Current Medications Dextrose (Dextrose 50% Inj) 0 ml IV STAT PRN; Protocol PRN Reason: Hypoglycemia Protocol Dextrose (Glutose 15) 0 gm PO ONCE PRN; Protocol PRN Reason: Hypoglycemia Protocol Docusate Sodium (Colace) 100 mg PO BID [facility] Last Admin: 12/02/18 09:59 Dose: 100 mg Glucagon (Glucagen Diagnostic Kit) 0 mg IM STAT PRN; Protocol PRN Reason: Hypoglycemia Protocol Guaifenesin/Dextromethorphan (Robitussin Dm) 5 ml PO Q4H PRN PRN Reason: Cough Last Admin: 11/27/18 09:29 Dose: 5 ml Vancomycin/Sodium Chloride (Vancomycin 1 Gm/Ns 200 Ml) 1 gm in 200 mls @ 133.33 3 mls/hr IVPB Q12H [facility]; Protocol Last Admin: 12/02/18 12:27 Dose: 133.333 mls/hr Ciprofloxacin (Cipro 400mg/200ml Dsw) 400 mg in 200 mls @ 133 mls/hr IVPB Q12H [facility]; Protocol Last Admin: 12/02/18 09:59 Dose: 133 mls/hr Insulin Aspart (Novolog) 0 unit SC ACHS [facility] Last Admin: 12/02/18 11:18 Dose: Not Given Insulin Aspart (Novolog) 10 unit SC AC [facility] Last Admin: 12/02/18 11:38 Dose: 10 units Insulin Glargine (Lantus) 30 unit SC HS [facility] Last Admin: 12/01/18 21:46 Dose: 30 unit Isosorbide Mononitrate (Imdur Er) 30 mg PO DAILY [facility] Last Admin: 12/02/18 09:59 Dose: 30 mg Metoprolol Tartrate (Lopressor) 25 mg PO ACBD [facility] Last Admin: 12/02/18 07:57 Dose: 25 mg Oxycodone/Acetaminophen (Percocet 5/325 Mg Tab) 2 tab PO Q4H PRN PRN Reason: Pain, severe (8-10) Stop: 12/03/18 19:42 Last Admin: 12/02/18 10:57 Dose: 2 tab Pantoprazole Sodium (Protonix Ec Tab) 40 mg PO DAILY [facility] Last Admin: 12/02/18 09:59 Dose: 40 mg - Labs Labs: 11/30/18 14:02 11/30/18 14:02 - Constitutional Appears: No Acute Distress - Head Exam Head Exam: NORMAL INSPECTION - Eye Exam Eye Exam: EOMI, PERRL - ENT Exam ENT Exam: Normal Oropharynx - Neck Exam Neck Exam: Normal Inspection - Respiratory Exam Respiratory Exam: Decreased Breath Sounds (RT SIDE . FEW RHONCHI LT. SIDE) - Cardiovascular Exam Cardiovascular Exam: REGULAR RHYTHM, +S1, +S2 - GI/Abdominal Exam GI & Abdominal Exam: Soft, Normal Bowel Sounds - Extremities Exam Extremities Exam: Normal Capillary Refill, Pedal Edema. absent: Calf Tenderness - Neurological Exam Neurological Exam: Alert, Awake, CN II-XII Intact, Oriented x3 - Psychiatric Exam Psychiatric exam: Normal Mood - Skin Skin Exam: Normal Color, Warm Assessment and Plan (1) Sepsis syndrome Status: Acute (2) DKA (diabetic ketoacidoses) Status: Resolved (3) Abdominal pain Status: Acute (4) Insulin dependent diabetes mellitus Status: Chronic (5) Hypertension Status: Chronic - Assessment and Plan (Free Text) Plan: CONTINUE CIPRO 400 MG iv PIGGYBACK EVERY 12 HOURLY 11/18/18. CONTINUE IV VANCOMYCIN 1000 MG IVPB Q 12HRLY 11/20 ADD IV FLAGYL 500MG IVPB Q 8HRLY 11/28/18 PT FOR RIGHT THORACOTOMY/PLEURAL BIOPSY/? DECORTICATION VS CHEST TUBE ON friday PER SURGERY.
--- NOTE | 2018-12-02 17:49 | PN ---
DATE: 12/02/2018 ENDOCRINOLOGY FOLLOWUP NOTE LOCATION: Room 654. SUBJECTIVE: This is a 68-year-old female with recent uncontrolled type 2 insulin-requiring diabetes, now being followed closely for metabolic management. Her glycemic levels are fluctuating, but improved and her glucose values have ranged from 152 to 189 mg/dL today and it was 191 at bedtime last night. PLAN OF MANAGEMENT: So at this time, we will continue the same basal and bolus insulin regimen as given with Novolog given as 10 units t.i.d. before meals as ordered. We will continue the Lantus given as 30 units subcu at bedtime daily as given. We will titrate incrementally as indicated to optimize metabolic control. We will follow. Elly Hannah MD
[2018-12-02] MEDS: (Lantus) Insulin Glargine, Recombinant SC SCH (22:39)
[2018-12-03] MEDS: Vancomycin 1 gm/NS 200 ml 1 GM/200 ML BAG IVPB SCH ×2 (01:02→13:17)
--- NOTE | 2018-12-03 07:23 | CP.PCM.PN ---
Subjective - Date & Time of Evaluation Date of Evaluation: 12/03/18 Time of Evaluation: 06:00 - Subjective Subjective: Surgery progress note for Dr. Edwards. Patient seen and examined at bedside. No acute events reported overnight night. Patient is POD # 2 s/p R sided pleural drainage by IR. 40 cc yellow thick fluid collected; will require further intervention for further collection. Patient states she feels the same as previous days, slightly SOB w/ persistent cough. Patient denies chest pain, abdominal pain, nausea, vomiting, diarrhea, constipation, dysuria, hematuria. Patient understands she is scheduled for OR tomorrow for VATS vs Thoracotomy. Objective - Vital Signs/Intake and Output Vital Signs (last 24 hours): Temp Pulse Resp BP Pulse Ox 98.4 F 93 H 20 168/78 H 97 12/02/18 23:20 12/02/18 23:20 12/02/18 23:20 12/02/18 23:20 12/02/18 23:20 Intake and Output: 12/03/18 12/03/18 06:59 18:59 Intake Total 200 Output Total 250 Balance -50 - Medications Medications: Current Medications Docusate Sodium (Colace) 100 mg PO BID [facility] Last Admin: 12/02/18 18:48 Dose: 100 mg Guaifenesin/Dextromethorphan (Robitussin Dm) 5 ml PO Q4H PRN PRN Reason: Cough Last Admin: 11/27/18 09:29 Dose: 5 ml Vancomycin/Sodium Chloride (Vancomycin 1 Gm/Ns 200 Ml) 1 gm in 200 mls @ 133.333 mls/hr IVPB Q12H [facility]; Protocol Last Admin: 12/03/18 01:02 Dose: 133.333 mls/hr Ciprofloxacin (Cipro 400mg/200ml Dsw) 400 mg in 200 mls @ 133 mls/hr IVPB Q12H [facility]; Protocol Last Admin: 12/02/18 20:03 Dose: 133 mls/hr Insulin Aspart (Novolog) 0 unit SC ACHS [facility] Last Admin: 12/02/18 22:39 Dose: Not Given Insulin Aspart (Novolog) 10 unit SC AC [facility] Last Admin: 12/02/18 18:49 Dose: 10 units Insulin Glargine (Lantus) 30 unit SC HS [facility] Last Admin: 12/02/18 22:39 Dose: 30 unit Isosorbide Mononitrate (Imdur Er) 30 mg PO DAILY [facility] Last Admin: 12/02/18 09:59 Dose: 30 mg Metoprolol Tartrate (Lopressor) 25 mg PO ACBD [facility] Last Admin: 12/02/18 17:00 Dose: 25 mg Oxycodone/Acetaminophen (Percocet 5/325 Mg Tab) 2 tab PO Q4H PRN PRN Reason: Pain, severe (8-10) Stop: 12/03/18 19:42 Last Admin: 12/02/18 23:00 Dose: 2 tab Pantoprazole Sodium (Protonix Ec Tab) 40 mg PO DAILY [facility] Last Admin: 12/02/18 09:59 Dose: 40 mg - Labs Labs: 11/30/18 14:02 11/30/18 14:02 - Constitutional Appears: Non-toxic, No Acute Distress - Head Exam Head Exam: NORMAL INSPECTION - Eye Exam Eye Exam: Normal appearance - ENT Exam ENT Exam: Mucous Membranes Moist - Respiratory Exam Respiratory Exam: Rales. absent: Rhonchi, Wheezes Additional comments: B/L rales, R > L - Cardiovascular Exam Additional comments: SS - GI/Abdominal Exam GI & Abdominal Exam: Soft, Normal Bowel Sounds - Neurological Exam Neurological Exam: Alert, Awake, Oriented x3 - Psychiatric Exam Psychiatric exam: Normal Affect, Normal Mood - Skin Skin Exam: Dry, Normal Color, Warm Assessment and Plan - Assessment and Plan (Free Text) Assessment: 68F with R sided pleural effusion, POD # 2 s/p IR R pleural drainage; scheduled for VATS vs Thoracotomy on 12/04 Plan: - cont IV ABX - VATS vs Thoracotomy on 12/04 - NPO past midnight - Will need cardio - Medically optimization prior to OR - f/u fluid studies Further recs per Dr. Grace Grier, PGY1
[2018-12-03] MEDS: (Novolog) Insulin Aspart, Recombinant 100 u/ml 10 ml vial SC SCH ×7 (07:30→22:32)
[2018-12-03 07:37] LABS: BASO % 0.3 % (0.0-2.0); EOS % 0.2 % (0.0-4.0); HEMOGLOBIN 9.6 g/dL (11.0-16.0); LYMPH # 0.7 K/uL (1.0-4.3); MEAN CELL VOLUME 95.4 fL (81.0-99.0); MEAN CORPUSCULAR HEMOGLOBIN 30.6 pg (27.0-31.0); MEAN PLATELET VOLUME 9.3 fL (7.2-11.7); MONO # 4.9 K/uL (0.0-0.8); MONO % 48.1 % (0.0-10.0); NEUT # 4.5 K/uL (1.8-7.0); NEUT % 44.4 % (50.0-75.0); PLATELET COUNT 244 K/uL (130-400); RBC 3.15 Mil/uL (3.80-5.20); RED CELL DISTRIBUTION WIDTH 13.9 % (11.5-14.5); WHITE BLOOD COUNT 10.2 K/uL (4.8-10.8)
[2018-12-03 07:46] LABS: ALB/GLOB RATIO 0.7 (1.0-2.1); ALBUMIN 2.6 g/dL (3.5-5.0); ALT/SGPT 9 U/L (9-52); AST/SGOT 20 U/L (14-36); BILIRUBIN,DIRECT 0.4 mg/dL (0.0-0.4); BLOOD UREA NITROGEN 13 mg/dL (7-17); CALCIUM 8.7 mg/dl (8.6-10.4); GFR NON-AFRICAN AMERICAN > 60
[2018-12-03] MEDS: Ciprofloxacin 400mg/200ml D5W 400 MG/200 ML BAG IVPB SCH ×2 (09:00→21:32)
[2018-12-03] MEDS: guaiFENesin DM 100 mg-10 mg/5 ml UD PO PRN ×2 (09:31→13:51)
[2018-12-03] MEDS: Pantoprazole 40 mg EC Tab PO SCH (09:32)
[2018-12-03 09:36] LABS: ANISOCYTOSIS SLIGHT; HYPOCHROMIC SLIGHT; LYMPHOCYTE 8 % (20-40); MONOCYTE 46 % (0-10); NEUTROPHIL 46 % (50-75); OVALOCYTES SLIGHT; PLATELET ESTIMATE NORMAL (NORMAL); POIKILOCYTOSIS SLIGHT; TOTAL CELLS COUNTED 100
[2018-12-03 11:24] LABS: INR 1.1; PROTHROMBIN TIME 11.9 SECONDS (9.7-12.2)
[2018-12-03] MEDS: Oxycodone/Acetaminophen 5/325 mg Tab PO PRN ×2 (12:02→17:22)
[2018-12-03 13:58] LABS: TOTAL PROTEIN PLEURAL FLUID 3.5 g/dL
--- NOTE | 2018-12-03 14:29 | CP.PCM.PN ---
Subjective - Date & Time of Evaluation Date of Evaluation: 12/03/18 Time of Evaluation: 14:26 - Subjective Subjective: Patient has no complaint of SOB, but still has a productive cough a right sided chest pain. ECG: sinus tachycardia, with q waves in III, aVF, and poor R wave progression in V1, V2, and no acute ST-T wave change. Echo: Normal LV systolic wall motion and EF, with grade I diastolic dysfunction. Mild MR, TR, AI, PI. Objective - Vital Signs/Intake and Output Vital Signs (last 24 hours): Temp Pulse Resp BP Pulse Ox 98.5 F 86 20 120/70 96 12/03/18 07:00 12/03/18 07:00 12/03/18 07:00 12/03/18 07:30 12/03/18 07:00 Intake and Output: 12/03/18 12/03/18 06:59 18:59 Intake Total 200 Output Total 250 Balance -50 - Medications Medications: Current Medications Docusate Sodium (Colace) 100 mg PO BID [facility] Last Admin: 12/03/18 09:31 Dose: 100 mg Guaifenesin/Dextromethorphan (Robitussin Dm) 5 ml PO Q4H PRN PRN Reason: Cough Last Admin: 12/03/18 13:51 Dose: 5 ml Vancomycin/Sodium Chloride (Vancomycin 1 Gm/Ns 200 Ml) 1 gm in 200 mls @ 133.333 mls/hr IVPB Q12H [facility]; Protocol Last Admin: 12/03/18 13:17 Dose: 133.333 mls/hr Ciprofloxacin (Cipro 400mg/200ml Dsw) 400 mg in 200 mls @ 133 mls/hr IVPB Q12H [facility]; Protocol Last Admin: 12/03/18 09:00 Dose: 133 mls/hr Insulin Aspart (Novolog) 0 unit SC ACHS [facility] Last Admin: 12/03/18 11:47 Dose: Not Given Insulin Aspart (Novolog) 10 unit SC AC [facility] Last Admin: 12/03/18 12:04 Dose: 10 units Insulin Glargine (Lantus) 30 unit SC HS [facility] Last Admin: 12/02/18 22:39 Dose: 30 unit Isosorbide Mononitrate (Imdur Er) 30 mg PO DAILY [facility] Last Admin: 12/03/18 09:32 Dose: 30 mg Metoprolol Tartrate (Lopressor) 25 mg PO ACBD [facility] Last Admin: 12/03/18 07:30 Dose: 25 mg Oxycodone/Acetaminophen (Percocet 5/325 Mg Tab) 2 tab PO Q4H PRN PRN Reason: Pain, severe (8-10) Stop: 12/03/18 19:42 Last Admin: 12/03/18 12:02 Dose: 2 tab Pantoprazole Sodium (Protonix Ec Tab) 40 mg PO DAILY [facility] Last Admin: 12/03/18 09:32 Dose: 40 mg - Labs Labs: 12/03/18 06:30 12/03/18 06:30 PT 11.9 SECONDS (9.7-12.2) 12/03/18 10:54 INR 1.1 12/03/18 10:54 APTT 25 SECONDS (21-34) 12/03/18 10:54 - Constitutional Appears: No Acute Distress, Chronically Ill - Head Exam Head Exam: NORMOCEPHALIC - Eye Exam Eye Exam: Normal appearance - ENT Exam ENT Exam: Normal Exam - Neck Exam Neck Exam: Normal Inspection - Respiratory Exam Respiratory Exam: Rhonchi Additional comments: Decreased breathing sounds at the right base. - Cardiovascular Exam Cardiovascular Exam: Tachycardia, REGULAR RHYTHM - GI/Abdominal Exam GI & Abdominal Exam: Soft, Normal Bowel Sounds - Rectal Exam Rectal Exam: Deferred - Exam Exam: NORMAL INSPECTION - Extremities Exam Extremities Exam: Normal Inspection - Back Exam Back Exam: NORMAL INSPECTION - Neurological Exam Neurological Exam: Alert, Awake, Oriented x3 - Psychiatric Exam Psychiatric exam: Agitated - Skin Skin Exam: Dry, Intact, Warm Assessment and Plan (1) DKA (diabetic ketoacidoses) Status: Resolved (2) Acute exacerbation of chronic low back pain Status: Chronic (3) Sepsis syndrome Status: Acute (4) Bilateral bronchopneumonia Status: Acute (5) Recurrent right pleural effusion Assessment & Plan: Right empyema. For a right thoracotomy, chest tube insertion and decortication in AM. Status: Acute
--- NOTE | 2018-12-03 14:29 | CP.PCM.PN ---
Subjective - Date & Time of Evaluation Date of Evaluation: 12/03/18 Time of Evaluation: 14:29 - Subjective Subjective: AFEBRILE VSS NO ACUTE EVENTS SEEN BY CTS PT FOR RIGHT THORACOTOMY/PLEURAL BIOPSY/? DECORTICATION VS CHEST TUBE IN AM. LABS REVIEWED. Objective - Vital Signs/Intake and Output Vital Signs (last 24 hours): Temp Pulse Resp BP Pulse Ox 98.5 F 86 20 120/70 96 12/03/18 07:00 12/03/18 07:00 12/03/18 07:00 12/03/18 07:30 12/03/18 07:00 Intake and Output: 12/03/18 12/03/18 06:59 18:59 Intake Total 200 Output Total 250 Balance -50 - Medications Medications: Current Medications Docusate Sodium (Colace) 100 mg PO BID [facility] Last Admin: 12/03/18 09:31 Dose: 100 mg Guaifenesin/Dextromethorphan (Robitussin Dm) 5 ml PO Q4H PRN PRN Reason: Cough Last Admin: 12/03/18 13:51 Dose: 5 ml Vancomycin/Sodium Chloride (Vancomycin 1 Gm/Ns 200 Ml) 1 gm in 200 mls @ 133.333 mls/hr IVPB Q12H [facility]; Protocol Last Admin: 12/03/18 13:17 Dose: 133.333 mls/hr Ciprofloxacin (Cipro 400mg/200ml Dsw) 400 mg in 200 mls @ 133 mls/hr IVPB Q12H [facility]; Protocol Last Admin: 12/03/18 09:00 Dose: 133 mls/hr Insulin Aspart (Novolog) 0 unit SC ACHS [facility] Last Admin: 12/03/18 11:47 Dose: Not Given Insulin Aspart (Novolog) 10 unit SC AC [facility] Last Admin: 12/03/18 12:04 Dose: 10 units Insulin Glargine (Lantus) 30 unit SC HS [facility] Last Admin: 12/02/18 22:39 Dose: 30 unit Isosorbide Mononitrate (Imdur Er) 30 mg PO DAILY [facility] Last Admin: 12/03/18 09:32 Dose: 30 mg Metoprolol Tartrate (Lopressor) 25 mg PO ACBD [facility] Last Admin: 12/03/18 07:30 Dose: 25 mg Oxycodone/Acetaminophen (Percocet 5/325 Mg Tab) 2 tab PO Q4H PRN PRN Reason: Pain, severe (8-10) Stop: 12/03/18 19:42 Last Admin: 12/03/18 12:02 Dose: 2 tab Pantoprazole Sodium (Protonix Ec Tab) 40 mg PO DAILY [facility] Last Admin: 12/03/18 09:32 Dose: 40 mg - Labs Labs: 12/03/18 06:30 12/03/18 06:30 PT 11.9 SECONDS (9.7-12.2) 12/03/18 10:54 INR 1.1 12/03/18 10:54 APTT 25 SECONDS (21-34) 12/03/18 10:54 - Constitutional Appears: No Acute Distress - Head Exam Head Exam: NORMAL INSPECTION - Eye Exam Eye Exam: EOMI, PERRL - ENT Exam ENT Exam: Normal Oropharynx - Respiratory Exam Respiratory Exam: Decreased Breath Sounds (RT SIDE), Rhonchi (FEW SCATTERRED RHONCHI.) - Cardiovascular Exam Cardiovascular Exam: REGULAR RHYTHM, +S1, +S2 - GI/Abdominal Exam GI & Abdominal Exam: Soft, Normal Bowel Sounds - Extremities Exam Extremities Exam: Normal Capillary Refill, Pedal Edema (1+). absent: Calf Tenderness - Neurological Exam Neurological Exam: Awake, CN II-XII Intact, Oriented x3, Reflexes Normal - Psychiatric Exam Psychiatric exam: Normal Mood - Skin Skin Exam: Normal Color, Warm Assessment and Plan (1) Sepsis syndrome Status: Acute (2) DKA (diabetic ketoacidoses) Status: Resolved (3) Abdominal pain Status: Acute (4) Insulin dependent diabetes mellitus Status: Chronic (5) Hypertension Status: Chronic - Assessment and Plan (Free Text) Plan: FOR OR IN AM. CONTINUE CIPRO 400 MG iv PIGGYBACK EVERY 12 HOURLY 11/18/18. CONTINUE IV VANCOMYCIN 1000 MG IVPB Q 12HRLY 11/20 CONTINUE IV FLAGYL 500MG IVPB Q 8HRLY 11/28/18 F/U APPROPRIATE CULTURES -BACTERIAL, AFB, FUNGAL, AND BX/TISSUE FOR HISTOLOGY PER SURGERY. CASE DISCUSSED WITH STAFF.
[2018-12-03] MEDS ORDERED: Oxycodone/Acetaminophen 5/325 mg Tab PO PRN (21:07)
[2018-12-03] MEDS: (Lantus) Insulin Glargine, Recombinant SC SCH (22:30)
--- NOTE | 2018-12-03 23:25 | PN ---
DATE: 12/03/2018SUBJECTIVE: This is a 68-year-old female with recent uncontrolled type 2 insulin requiring diabetes, now being closely for metabolic management. Her glycemic levels are fluctuating, but improved, and the glucose values today have ranged from 100 to 198 and 171 mg per dL. Her chemistries showed a BUN of 13, sodium 134, potassium 3.6, chloride 99, CO2 31, glucose 97, and creatinine 0.8. So at this time, we will continue the same basal and bolus insulin regimen as given with NovoLog given as 10 units t.i.d. before meals as ordered. We will continue the Lantus given as basal insulin at 30 units subcutaneous at bedtime daily as given. We will obtain serial chemistries and supplement accordingly as needed. We will follow. Elly Hannah MD
[2018-12-04] MEDS: Vancomycin 1 gm/NS 200 ml 1 GM/200 ML BAG IVPB SCH ×2 (01:10→13:30)
[2018-12-04 06:40] LABS: CEA PLEURAL FLUID 1.6 ng/mL (<10.0)
[2018-12-04] MEDS: (Novolog) Insulin Aspart, Recombinant 100 u/ml 10 ml vial SC SCH ×2 (07:02→07:24)
[2018-12-04 08:06] LABS: BASO % 0.4 % (0.0-2.0); EOS % 0.3 % (0.0-4.0); HEMOGLOBIN 9.5 g/dL (11.0-16.0); LYMPH # 0.6 K/uL (1.0-4.3); LYMPH % 6.9 % (20.0-40.0); MEAN CELL VOLUME 94.5 fL (81.0-99.0); MEAN CORPUSCULAR HEMOGLOBIN 31.1 pg (27.0-31.0); MEAN CORPUSCULAR HGB CONC 32.9 g/dL (33.0-37.0); MEAN PLATELET VOLUME 9.2 fL (7.2-11.7); MONO # 4.2 K/uL (0.0-0.8); NEUT # 4.3 K/uL (1.8-7.0); NEUT % 46.4 % (50.0-75.0); PLATELET COUNT 239 K/uL (130-400); RBC 3.04 Mil/uL (3.80-5.20); RED CELL DISTRIBUTION WIDTH 13.9 % (11.5-14.5); WHITE BLOOD COUNT 9.2 K/uL (4.8-10.8)
[2018-12-04 08:47] LABS: ALB/GLOB RATIO 0.7 (1.0-2.1); ALBUMIN 2.5 g/dL (3.5-5.0); ALT/SGPT 13 U/L (9-52); AST/SGOT 27 U/L (14-36); BLOOD UREA NITROGEN 17 mg/dL (7-17); CALCIUM 8.9 mg/dl (8.6-10.4); GFR NON-AFRICAN AMERICAN 55
[2018-12-04] MEDS: Pantoprazole 40 mg EC Tab PO SCH (09:06)
[2018-12-04] MEDS: Ciprofloxacin 400mg/200ml D5W 400 MG/200 ML BAG IVPB SCH ×2 (09:07→22:00)
[2018-12-04 10:09] LABS: ANISOCYTOSIS SLIGHT; HYPOCHROMIC SLIGHT; LYMPHOCYTE 7 % (20-40); MONOCYTE 41 % (0-10); NEUTROPHIL 52 % (50-75); PLATELET ESTIMATE NORMAL (NORMAL); POIKILOCYTOSIS SLIGHT; TOTAL CELLS COUNTED 100
[2018-12-04] MEDS ORDERED: Propofol 10 mg/ml Inj (20 ML) ONE (11:19)
[2018-12-04] MEDS ORDERED: Midazolam 2 MG/2 ML VIAL ONE (11:19)
[2018-12-04] MEDS ORDERED: BUPIVACAINE 0.125%/0.9% NACL 600 ML IJ ONE (11:50)
[2018-12-04] MEDS ORDERED: Succinylcholine Chloride 20 mg/ml Syr (5 ml) IV ONE (13:43)
[2018-12-04] MEDS ORDERED: Rocuronium 10 mg/ml (5 ml) ONE (13:43)
[2018-12-04] MEDS ORDERED: Bupivacaine HCl 0.5% PF (10 ml) Inj ONE (15:16)
[2018-12-04 15:51] LABS: BASO % 0.4 % (0.0-2.0); EOS % 0.1 % (0.0-4.0); HEMOGLOBIN 9.3 g/dL (11.0-16.0); LYMPH # 0.5 K/uL (1.0-4.3); MEAN CORPUSCULAR HEMOGLOBIN 30.7 pg (27.0-31.0); MEAN CORPUSCULAR HGB CONC 33.3 g/dL (33.0-37.0); MEAN PLATELET VOLUME 9.3 fL (7.2-11.7); MONO # 1.9 K/uL (0.0-0.8); NEUT # 5.2 K/uL (1.8-7.0); NEUT % 68.5 % (50.0-75.0); NRBC % 0.1 % (0.0-2.0); PLATELET COUNT 212 K/uL (130-400); RBC 3.02 Mil/uL (3.80-5.20); RED CELL DISTRIBUTION WIDTH 14.3 % (11.5-14.5); WHITE BLOOD COUNT 7.6 K/uL (4.8-10.8)
[2018-12-04 15:52] LABS: MEAN CELL VOLUME 92.3 fL (81.0-99.0)
[2018-12-04] MEDS ORDERED: Neostigmine 1:1000 (1 mg/ml) Inj ONE (16:18)
[2018-12-04 16:28] LABS: ALB/GLOB RATIO 0.7 (1.0-2.1); ALBUMIN 2.2 g/dL (3.5-5.0); ALT/SGPT 19 U/L (9-52); AMYLASE 70 U/L (30-110); AST/SGOT 40 U/L (14-36); BLOOD UREA NITROGEN 14 mg/dL (7-17); CALCIUM 8.2 mg/dl (8.6-10.4); GFR NON-AFRICAN AMERICAN > 60
[2018-12-04 16:55] LABS: HEPATITIS B SURFACE AG Negative (NEGATIVE)
[2018-12-04 17:00] LABS: HEPATITIS A IGM NEGATIVE (NEGATIVE); HEPATITIS B CORE AB NEGATIVE (NEGATIVE)
[2018-12-04] MEDS ORDERED: HYDROmorphone 1 mg/ml ISec IVP PRN (17:04)
[2018-12-04] MEDS: HYDROmorphone 0.5 mg/0.5 ml ISec IVP PRN ×3 (17:10→19:20)
[2018-12-04] MEDS ORDERED: HYDROmorphone 0.5 mg/0.5 ml ISec ONE (17:10)
[2018-12-04 17:12] LABS: HEPATITIS C ANTIBODY NEGATIVE (NEGATIVE)
--- NOTE | 2018-12-04 17:15 | PCM.SURG1 ---
Surgeon's Initial Post Op Note - Surgeon's Notes Surgeon: Dr. Edwards Dental Assistant: Dr. Dean PGY-3, Neil Noriega MS3 Type of Anesthesia: General Endo Pre-Operative Diagnosis: R sided lung effusion/empyema Operative Findings: See operative report Post-Operative Diagnosis: Retained hemothorax/Empyema Operation Performed: R thoracotomy with decortication, R pleural & Lung biopsy, evacuation of retained hemothorax/empyema, chest tubes x 2 Specimen/Specimens Removed: R lung tissue, R pleural tissue, retained hemothorax/empyema Estimated Blood Loss: EBL {In ML}: 300 Blood Products Given: N/A Drains Used: Chest Tubes Post-Op Condition: Good Date of Surgery/Procedure: 12/04/18 Time of Surgery/Procedure: 17:16
[2018-12-04 17:21] LABS: BANDS 3 % (0-2); EOSINOPHIL 1 % (0-4); LYMPHOCYTE 4 % (20-40); TOTAL CELLS COUNTED 100
[2018-12-04 17:22] LABS: ANISOCYTOSIS SLIGHT; HYPOCHROMIC SLIGHT; MONOCYTE 20 % (0-10); NEUTROPHIL 72 % (50-75); PLATELET ESTIMATE NORMAL (NORMAL); POIKILOCYTOSIS SLIGHT
--- NOTE | 2018-12-04 17:26 | RAD ---
Date of service: 12/04/2018 HISTORY: s/p R thoracotomy with 2 chest tubes COMPARISON: CT chest dated 11/28/2018 FINDINGS: LUNGS: Patchy bilateral infiltrates with atelectasis. PLEURA: Questionable small left pleural effusion no definite right pleural effusion. Right pleural thickening. No appreciable pneumothorax. CARDIOVASCULAR: Aortic atherosclerotic calcifications. Cardiomediastinal silhouette stably enlarged. OSSEOUS STRUCTURES: Right lateral 6th rib fracture VISUALIZED UPPER ABDOMEN: Normal. OTHER FINDINGS: Two large bore right-sided chest tubes. Surgical clips along the right lateral thoracic wall IMPRESSION: Interval thoracotomy with 2 large bore right-sided chest tubes. Patchy bilateral infiltrates with atelectasis. No definite right pleural effusion. Small left pleural effusion questioned. No appreciable pneumothorax.
[2018-12-04 18:22] LABS: BODY FLUID TYPE PLEURAL
[2018-12-04 18:51] LABS: BF GROSS APPEARANCE BLOODY (CLEAR); BODY FLUID MONO/MACROPHAGE 2 % (0-0); BODY FLUID TOTAL COUNT 100 (0-0)
[2018-12-04 19:28] LABS: SQUAMOUS EPITHIAL 2 /hpf (0-5); URINE BACTERIA RARE (<OCC); URINE BILIRUBIN NEGATIVE (NEGATIVE); URINE BLOOD NEGATIVE (NEGATIVE); URINE CLARITY Hazy (Clear); URINE COLOR Amber (YELLOW); URINE GLUCOSE (UA) NORMAL (Normal); URINE LEUKOCYTE ESTERASE NEG Leu/uL (Negative); URINE PROTEIN 1+ mg/dL (NEGATIVE); URINE UROBILINOGEN NORMAL mg/dL (0.2-1.0)
--- NOTE | 2018-12-04 19:47 | PN ---
DATE: 12/04/2018 ENDOCRINOLOGY FOLLOWUP NOTE LOCATION: Room 654. SUBJECTIVE: This is a 68-year-old female with recent uncontrolled type 2 insulin-requiring diabetes, now being followed closely for metabolic management. Her glycemic levels are fluctuating but improved and the glucose values have ranged from 100 to 198 mg/dL. LABORATORY DATA: Her latest chemistry showed a BUN of 13, sodium 134, potassium 3.6, chloride 99, CO2 of 31, glucose 97, and creatinine 0.8. ASSESSMENT AND PLAN: So at this time, we will continue the same basal and bolus insulin regimen as ordered to allow for full dose equilibration. We will continue NovoLog at 10 units three times a day before meals as ordered. We will continue also the Lantus at 30 units subcutaneous at bedtime daily as given. We will obtain serial chemistries and supplement accordingly as needed. We will follow. Elly Hannah MD
[2018-12-04] MEDS ORDERED: Sodium Chloride 0.9% 1,000 ML IV SCH (21:15)
--- NOTE | 2018-12-04 23:32 | CP.PCM.PN ---
Subjective - Date & Time of Evaluation Date of Evaluation: 12/04/18 Time of Evaluation: 20:30 - Subjective Subjective: Patient underwent a right thoracotomy with evacuation of old hematoma, empyema, and decortication and insertion of chest tubes. Objective - Vital Signs/Intake and Output Vital Signs (last 24 hours): Temp Pulse Resp BP Pulse Ox 98 F 94 H 8 L 143/59 L 99 12/04/18 22:00 12/04/18 22:30 12/04/18 22:30 12/04/18 22:30 12/04/18 22:30 Intake and Output: 12/04/18 12/05/18 18:59 06:59 Intake Total 2825 Output Total 1005 405 Balance 1820 -405 - Medications Medications: Current Medications Docusate Sodium (Colace) 100 mg PO BID [facility] Last Admin: 12/04/18 09:06 Dose: Not Given Guaifenesin/Dextromethorphan (Robitussin Dm) 5 ml PO Q4H PRN PRN Reason: Cough Last Admin: 12/03/18 13:51 Dose: 5 ml Hydromorphone HCl (Dilaudid) 1 mg IVP Q4H PRN PRN Reason: Pain, severe (8-10) Last Admin: 12/04/18 22:16 Dose: 1 mg Vancomycin/Sodium Chloride (Vancomycin 1 Gm/Ns 200 Ml) 1 gm in 200 mls @ 133.333 mls/hr IVPB Q12H [facility]; Protocol Last Admin: 12/04/18 13:30 Dose: 200 mls Ciprofloxacin (Cipro 400mg/200ml Dsw) 400 mg in 200 mls @ 133 mls/hr IVPB Q12H [facility]; Protocol Last Admin: 12/04/18 22:00 Dose: 100 mls BUPIVACAINE 0.125%/0.9% NACL (Bupivacaine-Ns 0.125% [employer]) 600 mls @ 4 mls/hr IJ ONCE ONE Stop: 12/10/18 17:49 Sodium Chloride (Sodium Chloride 0.9%) 1,000 mls @ 75 mls/hr IV .[id number] [facility] Last Admin: 12/04/18 21:30 Dose: 50 mls Insulin Aspart (Novolog) 0 unit SC ACHS [facility] Last Admin: 12/04/18 07:02 Dose: Not Given Insulin Aspart (Novolog) 10 unit SC AC [facility] Last Admin: 12/04/18 07:24 Dose: Not Given Insulin Glargine (Lantus) 30 unit SC HS [facility] Last Admin: 12/03/18 22:30 Dose: 30 unit Isosorbide Mononitrate (Imdur Er) 30 mg PO DAILY [facility] Last Admin: 12/04/18 09:06 Dose: Not Given Metoprolol Tartrate (Lopressor) 25 mg PO [facility] Last Admin: 12/04/18 07:30 Dose: Not Given Oxycodone/Acetaminophen (Percocet 5/325 Mg Tab) 2 tab PO Q4H PRN PRN Reason: Pain, severe (8-10) Stop: 12/06/18 21:08 Last Admin: 12/03/18 22:31 Dose: 2 tab Pantoprazole Sodium (Protonix Ec Tab) 40 mg PO DAILY [facility] Last Admin: 12/04/18 09:06 Dose: Not Given - Labs Labs: 12/04/18 15:45 12/04/18 15:45 PT 11.9 SECONDS (9.7-12.2) 12/03/18 10:54 INR 1.1 12/03/18 10:54 APTT 25 SECONDS (21-34) 12/03/18 10:54 - Constitutional Appears: No Acute Distress, Chronically Ill - Head Exam Head Exam: NORMOCEPHALIC - Eye Exam Eye Exam: Normal appearance - ENT Exam ENT Exam: Normal Exam - Neck Exam Neck Exam: Normal Inspection - Respiratory Exam Respiratory Exam: Rhonchi - Cardiovascular Exam Cardiovascular Exam: REGULAR RHYTHM - GI/Abdominal Exam GI & Abdominal Exam: Soft, Normal Bowel Sounds - Rectal Exam Rectal Exam: Deferred - Extremities Exam Extremities Exam: Normal Inspection - Back Exam Back Exam: NORMAL INSPECTION - Neurological Exam Neurological Exam: Alert, Awake, Oriented x3 - Psychiatric Exam Psychiatric exam: Anxious - Skin Skin Exam: Normal Color Assessment and Plan (1) DKA (diabetic ketoacidoses) Status: Resolved (2) Acute exacerbation of chronic low back pain Status: Chronic (3) Sepsis syndrome Status: Acute (4) Bilateral bronchopneumonia Status: Acute (5) Recurrent right pleural effusion Assessment & Plan: S/p right thoracotomy, evacuation of old hematoma, empyema, decortication and chest tube insertion. Status: Acute
[2018-12-05] MEDS: HYDROmorphone 1 mg/ml ISec IVP PRN ×5 (01:24→18:30)
[2018-12-05] MEDS: Vancomycin 1 gm/NS 200 ml 1 GM/200 ML BAG IVPB SCH ×2 (01:33→13:00)
[2018-12-05] MEDS ORDERED: Metoprolol 1 mg/ml Inj IVP ONE (05:53)
[2018-12-05 06:14] LABS: BASO % 0.1 % (0.0-2.0); EOS % 0.1 % (0.0-4.0); HEMOGLOBIN 8.5 g/dL (11.0-16.0); LYMPH # 0.5 K/uL (1.0-4.3); MEAN CELL VOLUME 94.3 fL (81.0-99.0); MEAN CORPUSCULAR HEMOGLOBIN 29.7 pg (27.0-31.0); MEAN CORPUSCULAR HGB CONC 31.5 g/dL (33.0-37.0); MEAN PLATELET VOLUME 9.4 fL (7.2-11.7); MONO # 6.3 K/uL (0.0-0.8); MONO % 35.8 % (0.0-10.0); NEUT # 10.8 K/uL (1.8-7.0); NRBC % 0.1 % (0.0-2.0); PLATELET COUNT 232 K/uL (130-400); RBC 2.87 Mil/uL (3.80-5.20); RED CELL DISTRIBUTION WIDTH 14.9 % (11.5-14.5); WHITE BLOOD COUNT 17.8 K/uL (4.8-10.8)
[2018-12-05 06:36] LABS: ALB/GLOB RATIO 0.7 (1.0-2.1); ALBUMIN 2.4 g/dL (3.5-5.0); ALT/SGPT 19 U/L (9-52); AST/SGOT 24 U/L (14-36); BLOOD UREA NITROGEN 19 mg/dL (7-17); CALCIUM 8.4 mg/dl (8.6-10.4); GFR NON-AFRICAN AMERICAN 55
--- NOTE | 2018-12-05 07:20 | CP.PCM.CON ---
History of Present Illness - History of Present Illness History of Present Illness: 68-year-old female with history off insulin-dependent diabetes mellitus, anxiety problems, CAD, hypertension was admitted to ICU on 11/17/18 in DKA with blood sugars off more than 600 complaining off nausea , vomiting at home with abdominal pains and generalized body aches for past one day. Patient also admits that she has missed her Lantus daily dose for some time. Patient denies any cough, shortness of breath or chest pain. Denies any headache, sinus problem or recent upper respiratory tract infection. Infectious disease consultation requested by PMD, for sepsis and also that patient is allergic to penicillin for appropriate therapy. PATIENT DENIES ANY RECENT TRAVEL. DENIES ANY RECENT CONTACT WITH ANY SICK PATIENT ED course: pepcid 20 mg IV, 10 units insulin regular IV, zofran, NaCl 250 ml/hr, labs, UA, EKG (sinus tachycardia), CXR PMH: Anxiety, Arthritis, Asthma, Bipolar Disorder, Depression, Diabetes, Gastritis, HTN, Hypercholesterolemia, Osteoporosis, sciatica, Paranoia, Schizophrenia Denies: Crohn's Disease, Diverticulitis, Gall Bladder Disease, Hepatitis, HIV, Pancreatitis, Chronic Kidney Disease, Seizures, Sexually Transmitted Disease Surgical History: Appendectomy, Coronary Stent (PCI of the LAD with stent insertion ( [facility]) in 2007 in [place].) Review of Systems - Review of Systems Systems not reviewed;Unavailable: Acuity of Condition - Constitutional Constitutional: As Per HPI Past Patient History - Infectious Disease Hx of Infectious Diseases: None - Tetanus Immunizations Tetanus Immunization: Unknown - Past Medical History & Family History Past Medical History?: Yes - Past Social History Smoking Status: Former Smoker - CARDIAC Hx Cardiac Disorders: Yes Hx Hypercholesterolemia: Yes Hx Hypertension: Yes - PULMONARY Hx Respiratory Disorders: Yes Hx Asthma: Yes - NEUROLOGICAL Hx Neurological Disorder: No Hx Seizures: No - HEENT Hx HEENT Problems: Yes Other/Comment: wear eyeglasses - RENAL Hx Chronic Kidney Disease: No - ENDOCRINE/METABOLIC Hx Endocrine Disorders: Yes Hx Diabetes Mellitus Type 2: Yes - HEMATOLOGICAL/ONCOLOGICAL Hx Blood Disorders: No Hx Human Immunodeficiency Virus (HIV): No - INTEGUMENTARY Hx Dermatological Problems: Yes Other/Comment: Hx skin rash - MUSCULOSKELETAL/RHEUMATOLOGICAL Hx Musculoskeletal Disorders: Yes Hx Arthritis: Yes Hx Falls: No Hx Osteoporosis: Yes - GASTROINTESTINAL Hx Gastrointestinal Disorders: Yes Hx Crohn's Disease: No Hx Diverticulitis: No Hx Gall Bladder Disease: No Hx Gastritis: Yes Hx Pancreatitis: No - GENITOURINARY/GYNECOLOGICAL Hx Genitourinary Disorders: No Hx Sexually Transmitted Disorders: No - PSYCHIATRIC Hx Psychophysiologic Disorder: Yes Hx Anxiety: Yes Hx Bipolar Disorder: Yes Hx Depression: Yes Hx Paranoia: Yes Hx Schizophrenia: Yes Hx Substance Use: No - SURGICAL HISTORY Hx Surgeries: Yes Hx Appendectomy: Yes Hx Coronary Stent: Yes (PCI of the LAD with stent insertion ( [facility]) in 2007 in [place].) - ANESTHESIA Hx Anesthesia: Yes Hx Anesthesia Reactions: No Hx Malignant Hyperthermia: No Has any member of the family had a problem w/ anesthesia?: No Meds Allergies/Adverse Reactions: Allergies Allergy/AdvReac Type Severity Reaction Status Date / Time Penicillins Allergy RASH Verified 06/15/18 14:35 - Medications Medications: Current Medications Docusate Sodium (Colace) 100 mg PO BID [facility] Last Admin: 12/04/18 09:06 Dose: Not Given Guaifenesin/Dextromethorphan (Robitussin Dm) 5 ml PO Q4H PRN PRN Reason: Cough Last Admin: 12/03/18 13:51 Dose: 5 ml Hydromorphone HCl (Dilaudid) 1 mg IVP Q3H PRN PRN Reason: Pain, severe (8-10) Last Admin: 12/05/18 05:01 Dose: 1 mg Vancomycin/Sodium Chloride (Vancomycin 1 Gm/Ns 200 Ml) 1 gm in 200 mls @ 133.333 mls/hr IVPB Q12H [facility]; Protocol Last Admin: 12/05/18 01:33 Dose: 133.333 mls/hr Ciprofloxacin (Cipro 400mg/200ml Dsw) 400 mg in 200 mls @ 133 mls/hr IVPB Q12H [facility]; Protocol Last Admin: 12/04/18 22:00 Dose: 100 mls BUPIVACAINE 0.125%/0.9% NACL (Bupivacaine-Ns 0.125% [employer] Phone [employer]) 600 mls @ 4 mls/hr IJ ONCE ONE Stop: 12/10/18 17:49 Sodium Chloride (Sodium Chloride 0.9%) 1,000 mls @ 75 mls/hr IV .[id number] [facility] Last Admin: 12/04/18 21:30 Dose: 50 mls Insulin Aspart (Novolog) 0 unit SC ACHS [facility] Last Admin: 12/04/18 07:02 Dose: Not Given Insulin Aspart (Novolog) 10 unit SC AC [facility] Last Admin: 12/04/18 07:24 Dose: Not Given Insulin Glargine (Lantus) 30 unit SC HS [facility] Last Admin: 12/03/18 22:30 Dose: 30 unit Isosorbide Mononitrate (Imdur Er) 30 mg PO DAILY [facility] Last Admin: 12/04/18 09:06 Dose: Not Given Metoprolol Tartrate (Lopressor) 25 mg PO ACBD [facility] Last Admin: 12/04/18 07:30 Dose: Not Given Ondansetron HCl (Zofran Inj) 4 mg IVP Q4H PRN PRN Reason: Nausea/Vomiting Last Admin: 12/05/18 05:01 Dose: 4 mg Oxycodone/Acetaminophen (Percocet 5/325 Mg Tab) 2 tab PO Q4H PRN PRN Reason: Pain, severe (8-10) Stop: 12/06/18 21:08 Last Admin: 12/03/18 22:31 Dose: 2 tab Pantoprazole Sodium (Protonix Ec Tab) 40 mg PO DAILY [facility] Last Admin: 12/04/18 09:06 Dose: Not Given Physical Exam - Constitutional Appears: Well - Head Exam Head Exam: ATRAUMATIC - ENT Exam ENT Exam: Mucous Membranes Dry - Neck Exam Neck exam: Positive for: Full Rom - Respiratory Exam Respiratory Exam: Chest Wall Tenderness - Cardiovascular Exam Cardiovascular Exam: Tachycardia - Rectal Exam Rectal Exam: Deferred Results - Vital Signs Recent Vital Signs: Last Vital Signs Temp 98 F 12/04/18 22:00 Pulse 123 H 12/05/18 06:40 Resp 22 12/05/18 06:40 BP 157/64 H 12/05/18 06:40 Pulse Ox 98 12/05/18 06:40 - Labs Result Diagrams: 12/05/18 06:07 12/05/18 06:07 Labs: Laboratory Results - last 24 hr 12/04/18 12/04/18 12/04/18 07:48 07:48 07:48 WBC 9.2 RBC 3.04 L Hgb 9.5 L Hct 28.7 L MCV 94.5 MCH 31.1 H MCHC 32.9 L RDW 13.9 Plt Count 239 MPV 9.2 Neut % (Auto) 46.4 L Lymph % (Auto) 6.9 L [place] % (Auto) 46.0 H Eos % (Auto) 0.3 Baso % (Auto) 0.4 Neut # (Auto) 4.3 Lymph # (Auto) 0.6 L [place] # (Auto) 4.2 H Eos # (Auto) 0.0 Baso # (Auto) 0.0 Neutrophils % (Manual) 52 Band Neutrophils % Lymphocytes % (Manual) 7 L Monocytes % (Manual) 41 H Eosinophils % (Manual) Platelet Estimate Normal Hypochromasia (manual) Slight Poikilocytosis (manual Slight Anisocytosis (manual) Slight Sodium 133 Potassium 3.9 Chloride 100 Carbon Dioxide 30 Anion Gap 7 L BUN 17 Creatinine 1.0 Est GFR ( Amer) > 60 Est GFR (Non-Af Amer) 55 POC Glucose (mg/dL) Random Glucose 140 H D Calcium 8.9 Total Bilirubin 0.4 AST 27 ALT 13 Alkaline Phosphatase 135 H Total Protein 6.3 Albumin 2.5 L Globulin 3.7 Albumin/Globulin Ratio 0.7 L Amylase Urine Color Urine Clarity Urine pH Ur Specific Norman Urine Protein Urine Glucose (UA) Urine Ketones Urine Blood Urine Nitrate Urine Bilirubin Urine Urobilinogen Ur Leukocyte Esterase Urine WBC (Auto) Urine RBC (Auto) Ur Squamous Epith Cells Urine Bacteria Hyaline Casts Granular Casts (Auto) Fluid Source Fluid Appearance Fluid WBC Fluid RBC Fluid Tot Cell Count Fluid Neutrophils Fluid Lymphocytes Fld Monocyte/Macrophag Fluid Comment RPR Hepatitis A IgM Ab Hep Bs Antigen Hep Bs Antibody Hep B Core IgM Ab Hepatitis C Antibody HIV 1&2 Antibody Screen Blood Type O POSITIVE Antibody Screen Negative 12/04/18 12/04/18 12/04/18 15:22 15:45 15:45 WBC 7.6 RBC 3.02 L Hgb 9.3 L Hct 27.9 L MCV 92.3 D MCH 30.7 MCHC 33.3 RDW 14.3 Plt Count 212 MPV 9.3 Neut % (Auto) 68.5 Lymph % (Auto) 6.0 L [place] % (Auto) 25.0 H Eos % (Auto) 0.1 Baso % (Auto) 0.4 Neut # (Auto) 5.2 Lymph # (Auto) 0.5 L [place] # (Auto) 1.9 H Eos # (Auto) 0.0 Baso # (Auto) 0.0 Neutrophils % (Manual) 72 Band Neutrophils % 3 H Lymphocytes % (Manual) 4 L Monocytes % (Manual) 20 H Eosinophils % (Manual) 1 Platelet Estimate Normal Hypochromasia (manual) Slight Poikilocytosis (manual Slight Anisocytosis (manual) Slight Sodium 134 Potassium 3.9 Chloride 103 Carbon Dioxide 27 Anion Gap 8 L BUN 14 Creatinine 0.8 Est GFR ( Amer) > 60 Est GFR (Non-Af Amer) > 60 POC Glucose (mg/dL) Random Glucose 102 D Calcium 8.2 L Total Bilirubin 0.4 AST 40 H D ALT 19 Alkaline Phosphatase 109 Total Protein 5.5 L Albumin 2.2 L Globulin 3.2 Albumin/Globulin Ratio 0.7 L Amylase 70 Urine Color Urine Clarity Urine pH Ur Specific Norman Urine Protein Urine Glucose (UA) Urine Ketones Urine Blood Urine Nitrate Urine Bilirubin Urine Urobilinogen Ur Leukocyte Esterase Urine WBC (Auto) Urine RBC (Auto) Ur Squamous Epith Cells Urine Bacteria Hyaline Casts Granular Casts (Auto) Fluid Source Fluid Appearance Fluid WBC Fluid RBC Fluid Tot Cell Count Fluid Neutrophils Fluid Lymphocytes Fld Monocyte/Macrophag Fluid Comment RPR Nonreactive Hepatitis A IgM Ab Hep Bs Antigen Hep Bs Antibody Hep B Core IgM Ab Hepatitis C Antibody HIV 1&2 Antibody Screen Blood Type Antibody Screen 12/04/18 12/04/18 12/04/18 15:45 15:45 15:45 WBC RBC Hgb Hct MCV MCH MCHC RDW Plt Count MPV Neut % (Auto) Lymph % (Auto) [place] % (Auto) Eos % (Auto) Baso % (Auto) Neut # (Auto) Lymph # (Auto) [place] # (Auto) Eos # (Auto) Baso # (Auto) Neutrophils % (Manual) Band Neutrophils % Lymphocytes % (Manual) Monocytes % (Manual) Eosinophils % (Manual) Platelet Estimate Hypochromasia (manual) Poikilocytosis (manual Anisocytosis (manual) Sodium Potassium Chloride Carbon Dioxide Anion Gap BUN Creatinine Est GFR ( Amer) Est GFR (Non-Af Amer) POC Glucose (mg/dL) Random Glucose Calcium Total Bilirubin AST ALT Alkaline Phosphatase Total Protein Albumin Globulin Albumin/Globulin Ratio Amylase Urine Color Urine Clarity Urine pH Ur Specific [place] Urine Protein Urine Glucose (UA) Urine Ketones Urine Blood Urine Nitrate Urine Bilirubin Urine Urobilinogen Ur Leukocyte Esterase Urine WBC (Auto) Urine RBC (Auto) Ur Squamous Epith Cells Urine Bacteria Hyaline Casts Granular Casts (Auto) Fluid Source Fluid Appearance Fluid WBC Fluid RBC Fluid Tot Cell Count Fluid Neutrophils Fluid Lymphocytes Fld Monocyte/Macrophag Fluid Comment RPR Hepatitis A IgM Ab Negative Hep Bs Antigen Negative Hep Bs Antibody Indeterminate Hep B Core IgM Ab Negative Hepatitis C Antibody Negative HIV 1&2 Antibody Screen Negative Blood Type Antibody Screen 12/04/18 12/04/18 12/04/18 17:14 18:14 19:18 WBC RBC Hgb Hct MCV MCH MCHC RDW Plt Count MPV Neut % (Auto) Lymph % (Auto) [place] % (Auto) Eos % (Auto) Baso % (Auto) Neut # (Auto) Lymph # (Auto) [place] # (Auto) Eos # (Auto) Baso # (Auto) Neutrophils % (Manual) Band Neutrophils % Lymphocytes % (Manual) Monocytes % (Manual) Eosinophils % (Manual) Platelet Estimate Hypochromasia (manual) Poikilocytosis (manual Anisocytosis (manual) Sodium Potassium Chloride Carbon Dioxide Anion Gap BUN Creatinine Est GFR ( Amer) Est GFR (Non-Af Amer) POC Glucose (mg/dL) 128 H Random Glucose Calcium Total Bilirubin AST ALT Alkaline Phosphatase Total Protein Albumin Globulin Albumin/Globulin Ratio Amylase Urine Color Elyse Urine Clarity Hazy Urine pH 5.0 Ur Specific Norman 1.025 Urine Protein 1+ H Urine Glucose (UA) Normal Urine Ketones Negative Urine Blood Negative Urine Nitrate Negative Urine Bilirubin Negative Urine Urobilinogen Normal Ur Leukocyte Esterase Neg Urine WBC (Auto) 11 H Urine RBC (Auto) 5 H Ur Squamous Epith Cells 2 Urine Bacteria Rare Hyaline Casts 3-5 H Granular Casts (Auto) 2-3 Fluid Source Pleural Fluid Appearance Bloody Fluid WBC 275.0 Fluid RBC 296735.0 H Fluid Tot Cell Count 100 H Fluid Neutrophils 75.0 H Fluid Lymphocytes 23.0 H Fld Monocyte/Macrophag 2 H Fluid Comment RPR Hepatitis A IgM Ab Hep Bs Antigen Hep Bs Antibody Hep B Core IgM Ab Hepatitis C Antibody HIV 1&2 Antibody Screen Blood Type Antibody Screen 12/04/18 12/05/18 12/05/18 21:20 06:07 06:07 WBC 17.8 H D RBC 2.87 L Hgb 8.5 L Hct 27.1 L MCV 94.3 D MCH 29.7 MCHC 31.5 L RDW 14.9 H Plt Count 232 MPV 9.4 Neut % (Auto) 61.0 Lymph % (Auto) 3.0 L [place] % (Auto) 35.8 H Eos % (Auto) 0.1 Baso % (Auto) 0.1 Neut # (Auto) 10.8 H Lymph # (Auto) 0.5 L [place] # (Auto) 6.3 H Eos # (Auto) 0.0 Baso # (Auto) 0.0 Neutrophils % (Manual) Band Neutrophils % Lymphocytes % (Manual) Monocytes % (Manual) Eosinophils % (Manual) Platelet Estimate Hypochromasia (manual) Poikilocytosis (manual Anisocytosis (manual) Sodium 134 Potassium 4.6 Chloride 100 Carbon Dioxide 29 Anion Gap 10 BUN 19 H Creatinine 1.0 Est GFR ( Amer) > 60 Est GFR (Non-Af Amer) 55 POC Glucose (mg/dL) 129 H Random Glucose 165 H D Calcium 8.4 L Total Bilirubin 0.5 AST 24 ALT 19 Alkaline Phosphatase 104 Total Protein 5.6 L Albumin 2.4 L Globulin 3.2 Albumin/Globulin Ratio 0.7 L Amylase Urine Color Urine Clarity Urine pH Ur Specific [place] Urine Protein Urine Glucose (UA) Urine Ketones Urine Blood Urine Nitrate Urine Bilirubin Urine Urobilinogen Ur Leukocyte Esterase Urine WBC (Auto) Urine RBC (Auto) Ur Squamous Epith Cells Urine Bacteria Hyaline Casts Granular Casts (Auto) Fluid Source Fluid Appearance Fluid WBC Fluid RBC Fluid Tot Cell Count Fluid Neutrophils Fluid Lymphocytes Fld Monocyte/Macrophag Fluid Comment RPR Hepatitis A IgM Ab Hep Bs Antigen Hep Bs Antibody Hep B Core IgM Ab Hepatitis C Antibody HIV 1&2 Antibody Screen Blood Type Antibody Screen Assessment & Plan - Assessment and Plan (Free Text) Assessment: R thoracotomy with decortication, R pleural & Lung biopsy, evacuation of retained hemothorax/empyema, chest tubes x 2 icu care dvt and GI prophylaxis
[2018-12-05] MEDS: (Novolog) Insulin Aspart, Recombinant 100 u/ml 10 ml vial SC SCH ×7 (07:57→23:10)
[2018-12-05] MEDS: Ciprofloxacin 400mg/200ml D5W 400 MG/200 ML BAG IVPB SCH ×2 (07:59→20:46)
[2018-12-05] MEDS ORDERED: Sodium Chloride 0.9% 1,000 ML IV SCH (08:27)
--- NOTE | 2018-12-05 08:31 | RAD ---
Chest x-ray single frontal view HISTORY: Right-sided chest tubes. COMPARISON: 12/04/2018 Findings: Surgical clips in the right axilla. Two right chest tubes project over the right lung apex. Small to moderate loculated right-sided pleural effusion. Small left pleural effusion. Consolidative changes in the right mid to lower lung zone. Consolidative changes at the left lung base. Cardiomegaly with calcification at the aortic knob. Biapical pleural thickening. Degenerative changes in the spine. Impression: No significant interval change.
[2018-12-05 08:41] LABS: BANDS 7 % (0-2); LYMPHOCYTE 3 % (20-40); MONOCYTE 35 % (0-10); NEUTROPHIL 55 % (50-75); PLATELET ESTIMATE NORMAL (NORMAL); TOTAL CELLS COUNTED 100
[2018-12-05 08:42] LABS: ANISOCYTOSIS SLIGHT; HYPOCHROMIC SLIGHT; LARGE PLATELETS PRESENT; POLYCHROMIC SLIGHT
[2018-12-05 08:43] LABS: GIANT PLATELETS PRESENT
[2018-12-05 08:45] LABS: TOXIC GRANULATION PRESENT
[2018-12-05] MEDS ORDERED: buPROPion 150 mg/24 Hours XL Tab PO SCH (10:00)
--- NOTE | 2018-12-05 10:14 | CP.PCM.PN ---
Subjective - Date & Time of Evaluation Date of Evaluation: 12/05/18 Time of Evaluation: 07:20 - Subjective Subjective: CT Surgery Pt seen and examined. No acute events overnight. Complaining of R sided chest pain especially with cough. Answered her questions and encouraged her to get out of bed today. Objective - Vital Signs/Intake and Output Vital Signs (last 24 hours): Temp Pulse Resp BP Pulse Ox 99.8 F H 123 H 22 147/67 98 12/05/18 08:03 12/05/18 06:40 12/05/18 06:40 12/05/18 07:30 12/05/18 06:40 Intake and Output: 12/05/18 12/05/18 06:59 18:59 Intake Total 1580 75 Output Total 770 0 Balance 810 75 - Medications Medications: Current Medications Acetaminophen (Tylenol 325mg Tab) 975 mg PO Q8 [facility] Bupropion HCl (Wellbutrin) 200 mg PO DAILY [facility] Docusate Sodium (Colace) 100 mg PO BID [facility] Last Admin: 12/04/18 09:06 Dose: Not Given Guaifenesin/Dextromethorphan (Robitussin Dm) 5 ml PO Q4H PRN PRN Reason: Cough Last Admin: 12/03/18 13:51 Dose: 5 ml Heparin Sodium (Porcine) (Heparin) 5,000 units SC Q8 [facility] Hydromorphone HCl (Dilaudid) 1 mg IVP Q3H PRN PRN Reason: Pain, severe (8-10) Last Admin: 12/05/18 07:53 Dose: 1 mg Vancomycin/Sodium Chloride (Vancomycin 1 Gm/Ns 200 Ml) 1 gm in 200 mls @ 133.333 mls/hr IVPB Q12H [facility]; Protocol Last Admin: 12/05/18 01:33 Dose: 133.333 mls/hr Ciprofloxacin (Cipro 400mg/200ml Dsw) 400 mg in 200 mls @ 133 mls/hr IVPB Q12H [facility]; Protocol Last Admin: 12/05/18 07:59 Dose: 133 mls/hr BUPIVACAINE 0.125%/0.9% NACL (Bupivacaine-Ns 0.125% On-Q [employer] Director Lead Teacher) 600 mls @ 4 mls/hr IJ ONCE ONE Stop: 12/10/18 17:49 Sodium Chloride (Sodium Chloride 0.9%) 1,000 mls @ 110 mls/hr IV .Q9H6M [facility] Insulin Aspart (Novolog) 0 unit SC ACHS [facility] Last Admin: 12/05/18 07:58 Dose: Not Given Insulin Aspart (Novolog) 10 unit SC AC [facility] Last Admin: 12/05/18 07:57 Dose: 10 units Insulin Glargine (Lantus) 30 unit SC HS [facility] Last Admin: 12/03/18 22:30 Dose: 30 unit Isosorbide Mononitrate (Imdur Er) 30 mg PO DAILY [facility] Last Admin: 12/04/18 09:06 Dose: Not Given Metoprolol Tartrate (Lopressor) 25 mg PO ACBD [facility] Last Admin: 12/05/18 07:30 Dose: 25 mg Ondansetron HCl (Zofran Inj) 4 mg IVP Q4H PRN PRN Reason: Nausea/Vomiting Last Admin: 12/05/18 05:01 Dose: 4 mg Pantoprazole Sodium (Protonix Ec Tab) 40 mg PO DAILY [facility] Last Admin: 12/04/18 09:06 Dose: Not Given Topiramate (Topamax) 100 mg PO TID [facility] - Labs Labs: 12/05/18 06:07 12/05/18 06:07 PT 11.9 SECONDS (9.7-12.2) 12/03/18 10:54 INR 1.1 12/03/18 10:54 APTT 25 SECONDS (21-34) 12/03/18 10:54 - Constitutional Appears: Non-toxic, No Acute Distress - Head Exam Head Exam: ATRAUMATIC, NORMOCEPHALIC - Eye Exam Eye Exam: EOMI. absent: Scleral icterus - Respiratory Exam Respiratory Exam: Chest Wall Tenderness (on R along incision), Decreased Breath Sounds, NORMAL BREATHING PATTERN. absent: Respiratory Distress Additional comments: Chest tubes without air leak, serosanguinous drainage. Dressing C/D/I. - GI/Abdominal Exam GI & Abdominal Exam: Soft. absent: Distended, Tenderness - Extremities Exam Extremities Exam: Normal Capillary Refill. absent: Calf Tenderness - Neurological Exam Neurological Exam: Alert, Awake, Oriented x3 - Skin Skin Exam: Dry, Warm Assessment and Plan - Assessment and Plan (Free Text) Assessment: 68F POD#1 s/p R thoracotomy with decortication, R pleural & Lung biopsy, evacuation of retained hemothorax/empyema Plan: Out of bed to Chair today. F/U biopsy and Cx results Pain control, meds adjusted DVT prophylaxis Monitor UOP, increased IVF Daily CXR Monitor chest tubes for output and leaks. D/W Dr. Grace Morales PGY4
[2018-12-05] MEDS: Pantoprazole 40 mg EC Tab PO SCH (10:29)
[2018-12-05] MEDS ORDERED: Glucagon Recombinant 1 mg Inj IM PRN (10:42)
[2018-12-05] MEDS ORDERED: Dextrose 50% SYRINGE Inj (50 ml) IV ONE (11:00)
[2018-12-05] MEDS: Lactated Ringer's 1,000 ML IV SCH ×2 (11:00→18:07)
--- NOTE | 2018-12-05 13:41 | PN ---
DATE: 12/05/2018 LOCATION: Room 654. SUBJECTIVE: This is a 68-year-old female with recent uncontrolled type 2 insulin-requiring diabetes, now being followed closely for metabolic management. Her glycemic levels are fluctuating, but improved and the glucose values have ranged from 198 mg/dL. LABORATORY DATA: Her chemistry showed a BUN of 13, sodium 134, potassium 3.6, chloride 99, CO2 of 31, glucose 97, and creatinine 0.8. ASSESSMENT AND PLAN: So, at this time, we will continue the same basal and bolus insulin regimen to allow for dose equilibration and keep her on the NovoLog given as 10 units t.i.d. before meals as ordered. We will continue the basal insulin given as Lantus at 30 units subcutaneously at bedtime daily as given. We will continue the low-dose correction scale using NovoLog insulin as ordered. We will follow and advise accordingly. Elly Hannah MD
--- NOTE | 2018-12-05 14:38 | CP.PCM.PN ---
Subjective - Date & Time of Evaluation Date of Evaluation: 12/05/18 Time of Evaluation: 14:38 - Subjective Subjective: POD# 1 S/P R thoracotomy with decortication, R pleural & Lung biopsy, evacuation of retained hemothorax/empyema, chest tubes x 2 (12/04/18) AFEBRILE AAO C/O RT SIDE CHEST PAIN +[address] DRAINING SERSANGUINOUS FLUID. LABS REVIEWED. PL, FLUID -VE GROWTH X 24HRS PL.TISSUE CULTURE -VE GROWTH X 24HRS. PLFLUID LDH 996 PL FLUID PROTEIN 3.5GM (EXUDATIVE ) Objective - Vital Signs/Intake and Output Vital Signs (last 24 hours): Temp Pulse Resp BP Pulse Ox 98.9 F 77 20 121/79 97 12/05/18 14:30 12/05/18 14:30 12/05/18 14:30 12/05/18 14:30 12/05/18 12:00 Intake and Output: 12/05/18 12/05/18 06:59 18:59 Intake Total 1580 1965 Output Total 770 300 Balance 810 1665 - Medications Medications: Current Medications Acetaminophen (Tylenol 325mg Tab) 975 mg PO Q8 [facility] Last Admin: 12/05/18 12:59 Dose: 975 mg Bupropion HCl (Wellbutrin) 200 mg PO DAILY [facility] Last Admin: 12/05/18 10:51 Dose: 200 mg Dextrose (Glutose 15) 0 gm PO ONCE PRN; Protocol PRN Reason: Hypoglycemia Protocol Docusate Sodium (Colace) 100 mg PO BID [facility] Last Admin: 12/05/18 10:31 Dose: 100 mg Glucagon (Glucagen Diagnostic Kit) 0 mg IM STAT PRN; Protocol PRN Reason: Hypoglycemia Protocol Guaifenesin/Dextromethorphan (Robitussin Dm) 5 ml PO Q4H PRN PRN Reason: Cough Last Admin: 12/03/18 13:51 Dose: 5 ml Heparin Sodium (Porcine) (Heparin) 5,000 units SC Q8 [facility] Last Admin: 12/05/18 12:59 Dose: 5,000 units Hydromorphone HCl (Dilaudid) 1 mg IVP Q3H PRN PRN Reason: Pain, severe (8-10) Last Admin: 12/05/18 14:34 Dose: 1 mg Vancomycin/Sodium Chloride (Vancomycin 1 Gm/Ns 200 Ml) 1 gm in 200 mls @ 13 3.333 mls/hr IVPB Q12H [facility]; Protocol Last Admin: 12/05/18 13:00 Dose: 133.333 mls/hr Ciprofloxacin (Cipro 400mg/200ml Dsw) 400 mg in 200 mls @ 133 mls/hr IVPB Q12H [facility]; Protocol Last Admin: 12/05/18 07:59 Dose: 133 mls/hr BUPIVACAINE 0.125%/0.9% NACL (Bupivacaine-Ns 0.125% On-Q Hot Roller) 600 mls @ 4 mls/hr IJ ONCE ONE Stop: 12/10/18 17:49 Lactated Ringer's (Lactated Ringer's) 1,000 mls @ 150 mls/hr IV .Q6H40M [facility] Dextrose (Dextrose 5% In Water 1000 Ml) 1,000 mls @ 0 mls/hr IV .Q0M PRN; Kal col PRN Reason: Hypoglycemia Protocol Insulin Aspart (Novolog) 10 unit SC AC [facility] Last Admin: 12/05/18 12:30 Dose: 10 units Insulin Aspart (Novolog) 0 unit SC ACHS [facility]; Protocol Last Admin: 12/05/18 12:30 Dose: Not Given Insulin Glargine (Lantus) 30 unit SC HS [facility] Last Admin: 12/03/18 22:30 Dose: 30 unit Isosorbide Mononitrate (Imdur Er) 30 mg PO DAILY [facility] Last Admin: 12/05/18 10:29 Dose: 30 mg Metoprolol Tartrate (Lopressor) 25 mg PO ACBD [facility] Last Admin: 12/05/18 07:30 Dose: 25 mg Ondansetron HCl (Zofran Inj) 4 mg IVP Q4H PRN PRN Reason: Nausea/Vomiting Last Admin: 12/05/18 05:01 Dose: 4 mg Pantoprazole Sodium (Protonix Ec Tab) 40 mg PO DAILY [facility] Last Admin: 12/05/18 10:29 Dose: 40 mg Topiramate (Topamax) 100 mg PO TID [facility] Last Admin: 12/05/18 10:31 Dose: 100 mg - Labs Labs: 12/05/18 06:07 12/05/18 06:07 PT 11.9 SECONDS (9.7-12.2) 12/03/18 10:54 INR 1.1 12/03/18 10:54 APTT 25 SECONDS (21-34) 12/03/18 10:54 - Constitutional Appears: No Acute Distress - Head Exam Head Exam: NORMAL INSPECTION - Eye Exam Eye Exam: EOMI, PERRL. absent: Scleral icterus - ENT Exam ENT Exam: Normal Oropharynx - Respiratory Exam Respiratory Exam: Decreased Breath Sounds (RT SIDE), NORMAL BREATHING PATTERN - Cardiovascular Exam Cardiovascular Exam: REGULAR RHYTHM, +S1, +S2 - GI/Abdominal Exam GI & Abdominal Exam: Soft, Normal Bowel Sounds - Extremities Exam Extremities Exam: Normal Capillary Refill. absent: Calf Tenderness, Pedal Edema - Neurological Exam Neurological Exam: Alert, Awake, CN II-XII Intact, Oriented x3, Reflexes Normal - Psychiatric Exam Psychiatric exam: Normal Mood - Skin Skin Exam: Normal Color, Warm Assessment and Plan (1) Empyema Status: Acute (2) Recurrent right pleural effusion Status: Acute (3) Post-thoracotomy pain Status: Acute (4) Sepsis syndrome Status: Acute (5) DKA (diabetic ketoacidoses) Status: Resolved (6) Insulin dependent diabetes mellitus Status: Chronic (7) Hypertension Status: Chronic - Assessment and Plan (Free Text) Plan: CONTINUE CIPRO 400 MG iv PIGGYBACK EVERY 12 HOURLY 11/18/18. CONTINUE IV VANCOMYCIN 1000 MG IVPB Q 12HRLY 11/20 CONTINUE IV FLAGYL 500MG IVPB Q 8HRLY 11/28/18 F/U APPROPRIATE CULTURES -BACTERIAL, AFB, FUNGAL, AND BX/TISSUE FOR HISTOLOGY CT MANAGEMENT PER SURGERY. CASE DISCUSSED WITH STAFF.
--- NOTE | 2018-12-05 18:05 | CP.CCUPN ---
CCU Objective - Vital Signs / Intake & Output Vital Signs (Last 4 hours): Vital Signs Temp Pulse Resp BP Pulse Ox 12/05/18 17:08 98.6 F 81 16 121/56 L 12/05/18 16:38 129/51 L 12/05/18 16:08 70 15 129/51 L 97 12/05/18 16:05 98.6 F 81 16 121/56 L 12/05/18 16:00 99.3 F 12/05/18 15:38 70 12 113/41 L 96 12/05/18 15:36 70 12 104/41 L 95 12/05/18 15:35 98.6 F 70 12 104/41 L 12/05/18 15:23 73 16 125/47 L 94 L 12/05/18 15:20 98.6 F 70 14 125/47 L 12/05/18 15:08 71 13 116/41 L 96 12/05/18 15:05 98.9 F 75 18 114/43 L 12/05/18 15:00 73 11 L 96 12/05/18 14:53 74 18 117/44 L 96 12/05/18 14:39 77 12 114/43 L 96 12/05/18 14:30 98.9 F 77 20 121/79 12/05/18 14:24 80 27 H 121/79 99 12/05/18 14:08 83 17 122/52 L 97 12/05/18 14:00 78 21 98 Intake and Output (Last 8hrs): Intake & Output 12/05/18 12/05/18 12/05/18 06:59 14:59 22:59 Intake Total 1580 2615 900 Output Total 365 330 110 Balance 1215 2285 790 Weight 180 lb Intake: Intake, IV Amount 600 950 150 Left Hand 0 RT upper arm power glide 600 950 150 Oral 980 840 500 Blood Product 825 250 Red Blood Cells Cpd As1 325 Lr Unit [id number] Red Blood Cells Cpd As1 0 Lr Unit [id number] Output: Chest Tube Drainage 175 80 Right Upper Anterior 55 30 Chest Right Upper Posterior 120 50 Chest Urine 190 330 30 Urethral (Cuadra) 190 330 30 - Medications Active Medications: Active Medications Generic Name Dose Route Start Last Admin Trade Name Freq PRN Reason Stop Dose Admin Acetaminophen 975 mg 12/05/18 10:00 12/05/18 12:59 Tylenol 325mg Tab PO 975 mg Q8 PIERO Administration Bupropion HCl 200 mg 12/05/18 10:00 12/05/18 10:51 Wellbutrin PO 200 mg DAILY PIERO Administration Dextrose 0 gm 12/05/18 11:00 Glutose 15 PO ONCE PRN Hypoglycemia Protocol Protocol Docusate Sodium 100 mg 11/20/18 20:45 12/05/18 10:31 Colace PO 100 mg BID PIERO Administration Glucagon 0 mg 12/05/18 10:42 Glucagen Diagnostic Kit IM STAT PRN Hypoglycemia Protocol Protocol Guaifenesin/Dextromethorphan 5 ml 11/20/18 14:25 12/03/18 13:51 Robitussin Dm PO 5 ml Q4H PRN Administration Cough Heparin Sodium (Porcine) 5,000 units 12/05/18 14:00 12/05/18 12:59 Heparin SC 5,000 units Q8 PIERO Administration Hydromorphone HCl 1 mg 12/05/18 01:19 12/05/18 14:34 Dilaudid IVP 1 mg Q3H PRN Administration Pain, severe (8-10) Vancomycin/Sodium Chloride 1 gm in 200 mls @ 133.333 mls/hr 11/23/18 01:00 12/05/18 13:00 Vancomycin 1 Gm/Ns 200 Ml IVPB 133.333 mls/hr Q12H PIERO Administration Protocol Ciprofloxacin 400 mg in 200 mls @ 133 mls/hr 11/24/18 21:00 12/05/18 07:59 Cipro 400mg/200ml Dsw IVPB 133 mls/hr Q12H PIERO Administration Protocol BUPIVACAINE 0.125%/0.9% NACL 600 mls @ 4 mls/hr 12/04/18 11:50 Bupivacaine-Ns 0.125% On-Q Chief Load Dispatcher IJ 12/10/18 17:49 ONCE ONE Lactated Ringer's 1,000 mls @ 150 mls/hr 12/05/18 10:45 12/05/18 11:00 Lactated Ringer's IV 150 mls/hr .Q6H40M PIERO Administration Dextrose 1,000 mls @ 0 mls/hr 12/05/18 11:00 Dextrose 5% In Water 1000 Ml IV .Q0M PRN Hypoglycemia Protocol Protocol Per Protocol Insulin Aspart 10 unit 11/25/18 07:30 12/05/18 16:11 Novolog SC Not Given AC PIERO Insulin Aspart 0 unit 12/05/18 11:30 12/05/18 16:11 Novolog SC Not Given [facility] Protocol Insulin Glargine 30 unit 11/23/18 22:00 12/03/18 22:30 Lantus SC 30 unit HS PIERO Administration Isosorbide Mononitrate 30 mg 11/21/18 10:00 12/05/18 10:29 Imdur Er PO 30 mg DAILY PIERO Administration Metoprolol Tartrate 25 mg 11/21/18 08:15 12/05/18 16:38 Lopressor PO 25 mg ACBD PIERO Administration Ondansetron HCl 4 mg 12/05/18 03:15 12/05/18 05:01 Zofran Inj IVP 4 mg Q4H PRN Administration Nausea/Vomiting Pantoprazole Sodium 40 mg 11/22/18 15:45 12/05/18 10:29 Protonix Ec Tab PO 40 mg DAILY PIERO Administration Topiramate 100 mg 12/05/18 10:00 12/05/18 15:00 Topamax PO 100 mg TID PIERO Administration - Patient Studies Lab Studies: Microbiology Studies 12/04/18 18:14 Gram Stain - Final Pleural Fluid Body Fluid Culture - Preliminary NO GROWTH AFTER 24 HOURS 12/04/18 18:14 Gram Stain - Final Other: Please Indicate Tissue Culture - Preliminary NO GROWTH AFTER 24 HOURS 12/04/18 18:14 Gram Stain - Final Lung Tissue Culture - Preliminary NO GROWTH AFTER 24 HOURS 12/04/18 18:14 Anaerobic Culture - Preliminary Chest No growth. 12/01/18 12:39 Gram Stain - Final Pleural Fluid Body Fluid Culture - Final No growth. Lab Studies 12/05/18 12/05/18 12/05/18 Range/Units 16:35 16:25 16:04 WBC (4.8-10.8) K/uL RBC (3.80-5.20) Mil/uL Hgb (11.0-16.0) g/dL Hct (34.0-47.0) % MCV (81.0-99.0) fL MCH (27.0-31.0) pg MCHC (33.0-37.0) g/dL RDW (11.5-14.5) % Plt Count (130-400) K/uL MPV (7.2-11.7) fL Neut % (Auto) (50.0-75.0) % Lymph % (Auto) (20.0-40.0) % [place] % (Auto) (0.0-10.0) % Eos % (Auto) (0.0-4.0) % Baso % (Auto) (0.0-2.0) % Neut # (Auto) (1.8-7.0) K/uL Lymph # (Auto) (1.0-4.3) K/uL [place] # (Auto) (0.0-0.8) K/uL Eos # (Auto) (0.0-0.7) K/uL Baso # (Auto) (0.0-0.2) K/uL Neutrophils % (Manual) (50-75) % Band Neutrophils % (0-2) % Lymphocytes % (Manual) (20-40) % Monocytes % (Manual) (0-10) % Toxic Granulation Platelet Estimate (NORMAL) Large Platelets Giant Platelets Polychromasia Hypochromasia (manual) Basophilic Stippling Anisocytosis (manual) Sodium (132-148) mmol/L Potassium (3.6-5.2) mmol/L Chloride (98-107) mmol/L Carbon Dioxide (22-30) mmol/L Anion Gap (10-20) BUN (7-17) mg/dL Creatinine (0.7-1.2) mg/dL Est GFR ( Amer) Est GFR (Non-Af Amer) POC Glucose (mg/dL) 70 58 L (65-110) mg/dL Random Glucose (65-105) mg/dL Lactic Acid 1.0 (0.7-2.1) mmol/L Calcium (8.6-10.4) mg/dl Total Bilirubin (0.2-1.3) mg/dL AST (14-36) U/L ALT (9-52) U/L Alkaline Phosphatase (38-126) U/L Total Protein (6.3-8.3) g/dL Albumin (3.5-5.0) g/dL Globulin (2.2-3.9) gm/dL Albumin/Globulin Ratio (1.0-2.1) Urine Color (YELLOW) Urine Clarity (Clear) Urine pH (5.0-8.0) Ur Specific [place] (1.003-1.030) Urine Protein (NEGATIVE) mg/dL Urine Glucose (UA) (Normal) mg/dL Urine Ketones (NEGATIVE) mg/dL Urine Blood (NEGATIVE) Urine Nitrate (NEGATIVE) Urine Bilirubin (NEGATIVE) Urine Urobilinogen (0.2-1.0) mg/dL Ur Leukocyte Esterase (Negative) Rosio/uL Urine WBC (Auto) (0-5) /hpf Urine RBC (Auto) (0-3) /hpf Ur Squamous Epith Cells (0-5) /hpf Urine Bacteria (<OCC) Hyaline Casts (0-2) /lpf Granular Casts (Auto) (0-1) /lpf Fluid Source Fluid Appearance (CLEAR) Fluid WBC (0.0-300.0) /mm3 Fluid RBC (0.0-0.0) /mm3 Fluid Tot Cell Count (0-0) Fluid Neutrophils (0-0) % Fluid Lymphocytes (0-0) % Fld Monocyte/Macrophag (0-0) % Fluid Comment Hep Bs Antibody (NEGATIVE) Blood Type Antibody Screen 12/05/18 12/05/18 12/05/18 Range/Units 16:02 12:31 07:52 WBC (4.8-10.8) K/uL RBC (3.80-5.20) Mil/uL Hgb (11.0-16.0) g/dL Hct (34.0-47.0) % MCV (81.0-99.0) fL MCH (27.0-31.0) pg MCHC (33.0-37.0) g/dL RDW (11.5-14.5) % Plt Count (130-400) K/uL MPV (7.2-11.7) fL Neut % (Auto) (50.0-75.0) % Lymph % (Auto) (20.0-40.0) % [place] % (Auto) (0.0-10.0) % Eos % (Auto) (0.0-4.0) % Baso % (Auto) (0.0-2.0) % Neut # (Auto) (1.8-7.0) K/uL Lymph # (Auto) (1.0-4.3) K/uL [place] # (Auto) (0.0-0.8) K/uL Eos # (Auto) (0.0-0.7) K/uL Baso # (Auto) (0.0-0.2) K/uL Neutrophils % (Manual) (50-75) % Band Neutrophils % (0-2) % Lymphocytes % (Manual) (20-40) % Monocytes % (Manual) (0-10) % Toxic Granulation Platelet Estimate (NORMAL) Large Platelets Giant Platelets Polychromasia Hypochromasia (manual) Basophilic Stippling Anisocytosis (manual) Sodium (132-148) mmol/L Potassium (3.6-5.2) mmol/L Chloride (98-107) mmol/L Carbon Dioxide (22-30) mmol/L Anion Gap (10-20) BUN (7-17) mg/dL Creatinine (0.7-1.2) mg/dL Est GFR ( Amer) Est GFR (Non-Af Amer) POC Glucose (mg/dL) 59 L 137 H 215 H (65-110) mg/dL Random Glucose (65-105) mg/dL Lactic Acid (0.7-2.1) mmol/L Calcium (8.6-10.4) mg/dl Total Bilirubin (0.2-1.3) mg/dL AST (14-36) U/L ALT (9-52) U/L Alkaline Phosphatase (38-126) U/L Total Protein (6.3-8.3) g/dL Albumin (3.5-5.0) g/dL Globulin (2.2-3.9) gm/dL Albumin/Globulin Ratio (1.0-2.1) Urine Color (YELLOW) Urine Clarity (Clear) Urine pH (5.0-8.0) Ur Specific [place] (1.003-1.030) Urine Protein (NEGATIVE) mg/dL Urine Glucose (UA) (Normal) mg/dL Urine Ketones (NEGATIVE) mg/dL Urine Blood (NEGATIVE) Urine Nitrate (NEGATIVE) Urine Bilirubin (NEGATIVE) Urine Urobilinogen (0.2-1.0) mg/dL Ur Leukocyte Esterase (Negative) Rosio/uL Urine WBC (Auto) (0-5) /hpf Urine RBC (Auto) (0-3) /hpf Ur Squamous Epith Cells (0-5) /hpf Urine Bacteria (<OCC) Hyaline Casts (0-2) /lpf Granular Casts (Auto) (0-1) /lpf Fluid Source Fluid Appearance (CLEAR) Fluid WBC (0.0-300.0) /mm3 Fluid RBC (0.0-0.0) /mm3 Fluid Tot Cell Count (0-0) Fluid Neutrophils (0-0) % Fluid Lymphocytes (0-0) % Fld Monocyte/Macrophag (0-0) % Fluid Comment Hep Bs Antibody (NEGATIVE) Blood Type Antibody Screen 12/05/18 12/05/18 12/04/18 Range/Units 06:07 06:07 21:20 WBC 17.8 H D (4.8-10.8) K/uL RBC 2.87 L (3.80-5.20) Mil/uL Hgb 8.5 L (11.0-16.0) g/dL Hct 27.1 L (34.0-47.0) % MCV 94.3 D (81.0-99.0) fL MCH 29.7 (27.0-31.0) pg MCHC 31.5 L (33.0-37.0) g/dL RDW 14.9 H (11.5-14.5) % Plt Count 232 (130-400) K/uL MPV 9.4 (7.2-11.7) fL Neut % (Auto) 61.0 (50.0-75.0) % Lymph % (Auto) 3.0 L (20.0-40.0) % [place] % (Auto) 35.8 H (0.0-10.0) % Eos % (Auto) 0.1 (0.0-4.0) % Baso % (Auto) 0.1 (0.0-2.0) % Neut # (Auto) 10.8 H (1.8-7.0) K/uL Lymph # (Auto) 0.5 L (1.0-4.3) K/uL [place] # (Auto) 6.3 H (0.0-0.8) K/uL Eos # (Auto) 0.0 (0.0-0.7) K/uL Baso # (Auto) 0.0 (0.0-0.2) K/uL Neutrophils % (Manual) 55 (50-75) % Band Neutrophils % 7 H (0-2) % Lymphocytes % (Manual) 3 L (20-40) % Monocytes % (Manual) 35 H (0-10) % Toxic Granulation Present Platelet Estimate Normal (NORMAL) Large Platelets Present Giant Platelets Present Polychromasia Slight Hypochromasia (manual) Slight Basophilic Stippling Slight Anisocytosis (manual) Slight Sodium 134 (132-148) mmol/L Potassium 4.6 (3.6-5.2) mmol/L Chloride 100 (98-107) mmol/L Carbon Dioxide 29 (22-30) mmol/L Anion Gap 10 (10-20) BUN 19 H (7-17) mg/dL Creatinine 1.0 (0.7-1.2) mg/dL Est GFR ( Amer) > 60 Est GFR (Non-Af Amer) 55 POC Glucose (mg/dL) 129 H (65-110) mg/dL Random Glucose 165 H D (65-105) mg/dL Lactic Acid (0.7-2.1) mmol/L Calcium 8.4 L (8.6-10.4) mg/dl Total Bilirubin 0.5 (0.2-1.3) mg/dL AST 24 (14-36) U/L ALT 19 (9-52) U/L Alkaline Phosphatase 104 (38-126) U/L Total Protein 5.6 L (6.3-8.3) g/dL Albumin 2.4 L (3.5-5.0) g/dL Globulin 3.2 (2.2-3.9) gm/dL Albumin/Globulin Ratio 0.7 L (1.0-2.1) Urine Color (YELLOW) Urine Clarity (Clear) Urine pH (5.0-8.0) Ur Specific [place] (1.003-1.030) Urine Protein (NEGATIVE) mg/dL Urine Glucose (UA) (Normal) mg/dL Urine Ketones (NEGATIVE) mg/dL Urine Blood (NEGATIVE) Urine Nitrate (NEGATIVE) Urine Bilirubin (NEGATIVE) Urine Urobilinogen (0.2-1.0) mg/dL Ur Leukocyte Esterase (Negative) Rosio/uL Urine WBC (Auto) (0-5) /hpf Urine RBC (Auto) (0-3) /hpf Ur Squamous Epith Cells (0-5) /hpf Urine Bacteria (<OCC) Hyaline Casts (0-2) /lpf Granular Casts (Auto) (0-1) /lpf Fluid Source Fluid Appearance (CLEAR) Fluid WBC (0.0-300.0) /mm3 Fluid RBC (0.0-0.0) /mm3 Fluid Tot Cell Count (0-0) Fluid Neutrophils (0-0) % Fluid Lymphocytes (0-0) % Fld Monocyte/Macrophag (0-0) % Fluid Comment Hep Bs Antibody (NEGATIVE) Blood Type Antibody Screen 12/04/18 12/04/18 12/04/18 Range/Units 19:18 18:14 15:45 WBC (4.8-10.8) K/uL RBC (3.80-5.20) Mil/uL Hgb (11.0-16.0) g/dL Hct (34.0-47.0) % MCV (81.0-99.0) fL MCH (27.0-31.0) pg MCHC (33.0-37.0) g/dL RDW (11.5-14.5) % Plt Count (130-400) K/uL MPV (7.2-11.7) fL Neut % (Auto) (50.0-75.0) % Lymph % (Auto) (20.0-40.0) % [place] % (Auto) (0.0-10.0) % Eos % (Auto) (0.0-4.0) % Baso % (Auto) (0.0-2.0) % Neut # (Auto) (1.8-7.0) K/uL Lymph # (Auto) (1.0-4.3) K/uL [place] # (Auto) (0.0-0.8) K/uL Eos # (Auto) (0.0-0.7) K/uL Baso # (Auto) (0.0-0.2) K/uL Neutrophils % (Manual) (50-75) % Band Neutrophils % (0-2) % Lymphocytes % (Manual) (20-40) % Monocytes % (Manual) (0-10) % Toxic Granulation Platelet Estimate (NORMAL) Large Platelets Giant Platelets Polychromasia Hypochromasia (manual) Basophilic Stippling Anisocytosis (manual) Sodium (132-148) mmol/L Potassium (3.6-5.2) mmol/L Chloride (98-107) mmol/L Carbon Dioxide (22-30) mmol/L Anion Gap (10-20) BUN (7-17) mg/dL Creatinine (0.7-1.2) mg/dL Est GFR ( Amer) Est GFR (Non-Af Amer) POC Glucose (mg/dL) (65-110) mg/dL Random Glucose (65-105) mg/dL Lactic Acid (0.7-2.1) mmol/L Calcium (8.6-10.4) mg/dl Total Bilirubin (0.2-1.3) mg/dL AST (14-36) U/L ALT (9-52) U/L Alkaline Phosphatase (38-126) U/L Total Protein (6.3-8.3) g/dL Albumin (3.5-5.0) g/dL Globulin (2.2-3.9) gm/dL Albumin/Globulin Ratio (1.0-2.1) Urine Color [place] (YELLOW) Urine Clarity Hazy (Clear) Urine pH 5.0 (5.0-8.0) Ur Specific [place] 1.025 (1.003-1.030) Urine Protein 1+ H (NEGATIVE) mg/dL Urine Glucose (UA) Normal (Normal) mg/dL Urine Ketones Negative (NEGATIVE) mg/dL Urine Blood Negative (NEGATIVE) Urine Nitrate Negative (NEGATIVE) Urine Bilirubin Negative (NEGATIVE) Urine Urobilinogen Normal (0.2-1.0) mg/dL Ur Leukocyte Esterase Neg (Negative) Rosio/uL Urine WBC (Auto) 11 H (0-5) /hpf Urine RBC (Auto) 5 H (0-3) /hpf Ur Squamous Epith Cells 2 (0-5) /hpf Urine Bacteria Rare (<OCC) Hyaline Casts 3-5 H (0-2) /lpf Granular Casts (Auto) 2-3 (0-1) /lpf Fluid Source Pleural Fluid Appearance Bloody (CLEAR) Fluid WBC 275.0 (0.0-300.0) /mm3 Fluid RBC 135089.0 H (0.0-0.0) /mm3 Fluid Tot Cell Count 100 H (0-0) Fluid Neutrophils 75.0 H (0-0) % Fluid Lymphocytes 23.0 H (0-0) % Fld Monocyte/Macrophag 2 H (0-0) % Fluid Comment Hep Bs Antibody Indeterminate (NEGATIVE) Blood Type Antibody Screen 12/04/18 Range/Units 07:48 WBC (4.8-10.8) K/uL RBC (3.80-5.20) Mil/uL Hgb (11.0-16.0) g/dL Hct (34.0-47.0) % MCV (81.0-99.0) fL MCH (27.0-31.0) pg MCHC (33.0-37.0) g/dL RDW (11.5-14.5) % Plt Count (130-400) K/uL MPV (7.2-11.7) fL Neut % (Auto) (50.0-75.0) % Lymph % (Auto) (20.0-40.0) % [place] % (Auto) (0.0-10.0) % Eos % (Auto) (0.0-4.0) % Baso % (Auto) (0.0-2.0) % Neut # (Auto) (1.8-7.0) K/uL Lymph # (Auto) (1.0-4.3) K/uL [place] # (Auto) (0.0-0.8) K/uL Eos # (Auto) (0.0-0.7) K/uL Baso # (Auto) (0.0-0.2) K/uL Neutrophils % (Manual) (50-75) % Band Neutrophils % (0-2) % Lymphocytes % (Manual) (20-40) % Monocytes % (Manual) (0-10) % Toxic Granulation Platelet Estimate (NORMAL) Large Platelets Giant Platelets Polychromasia Hypochromasia (manual) Basophilic Stippling Anisocytosis (manual) Sodium (132-148) mmol/L Potassium (3.6-5.2) mmol/L Chloride (98-107) mmol/L Carbon Dioxide (22-30) mmol/L Anion Gap (10-20) BUN (7-17) mg/dL Creatinine (0.7-1.2) mg/dL Est GFR ( Amer) Est GFR (Non-Af Amer) POC Glucose (mg/dL) (65-110) mg/dL Random Glucose (65-105) mg/dL Lactic Acid (0.7-2.1) mmol/L Calcium (8.6-10.4) mg/dl Total Bilirubin (0.2-1.3) mg/dL AST (14-36) U/L ALT (9-52) U/L Alkaline Phosphatase (38-126) U/L Total Protein (6.3-8.3) g/dL Albumin (3.5-5.0) g/dL Globulin (2.2-3.9) gm/dL Albumin/Globulin Ratio (1.0-2.1) Urine Color (YELLOW) Urine Clarity (Clear) Urine pH (5.0-8.0) Ur Specific [place] (1.003-1.030) Urine Protein (NEGATIVE) mg/dL Urine Glucose (UA) (Normal) mg/dL Urine Ketones (NEGATIVE) mg/dL Urine Blood (NEGATIVE) Urine Nitrate (NEGATIVE) Urine Bilirubin (NEGATIVE) Urine Urobilinogen (0.2-1.0) mg/dL Ur Leukocyte Esterase (Negative) Rosio/uL Urine WBC (Auto) (0-5) /hpf Urine RBC (Auto) (0-3) /hpf Ur Squamous Epith Cells (0-5) /hpf Urine Bacteria (<OCC) Hyaline Casts (0-2) /lpf Granular Casts (Auto) (0-1) /lpf Fluid Source Fluid Appearance (CLEAR) Fluid WBC (0.0-300.0) /mm3 Fluid RBC (0.0-0.0) /mm3 Fluid Tot Cell Count (0-0) Fluid Neutrophils (0-0) % Fluid Lymphocytes (0-0) % Fld Monocyte/Macrophag (0-0) % Fluid Comment Hep Bs Antibody (NEGATIVE) Blood Type O POSITIVE Antibody Screen Negative Laboratory Results - last 24 hr 12/04/18 12/04/18 12/04/18 07:48 15:45 18:14 WBC RBC Hgb Hct MCV MCH MCHC RDW Plt Count MPV Neut % (Auto) Lymph % (Auto) [place] % (Auto) Eos % (Auto) Baso % (Auto) Neut # (Auto) Lymph # (Auto) [place] # (Auto) Eos # (Auto) Baso # (Auto) Neutrophils % (Manual) Band Neutrophils % Lymphocytes % (Manual) Monocytes % (Manual) Toxic Granulation Platelet Estimate Large Platelets Giant Platelets Polychromasia Hypochromasia (manual) Basophilic Stippling Anisocytosis (manual) Sodium Potassium Chloride Carbon Dioxide Anion Gap BUN Creatinine Est GFR ( Amer) Est GFR (Non-Af Amer) POC Glucose (mg/dL) Random Glucose Lactic Acid Calcium Total Bilirubin AST ALT Alkaline Phosphatase Total Protein Albumin Globulin Albumin/Globulin Ratio Urine Color Urine Clarity Urine pH Ur Specific [place] Urine Protein Urine Glucose (UA) Urine Ketones Urine Blood Urine Nitrate Urine Bilirubin Urine Urobilinogen Ur Leukocyte Esterase Urine WBC (Auto) Urine RBC (Auto) Ur Squamous Epith Cells Urine Bacteria Hyaline Casts Granular Casts (Auto) Fluid Source Pleural Fluid Appearance Bloody Fluid WBC 275.0 Fluid RBC 699918.0 H Fluid Tot Cell Count 100 H Fluid Neutrophils 75.0 H Fluid Lymphocytes 23.0 H Fld Monocyte/Macrophag 2 H Fluid Comment Hep Bs Antibody Indeterminate Blood Type O POSITIVE Antibody Screen Negative 12/04/18 12/04/18 12/05/18 19:18 21:20 06:07 WBC 17.8 H D RBC 2.87 L Hgb 8.5 L Hct 27.1 L MCV 94.3 D MCH 29.7 MCHC 31.5 L RDW 14.9 H Plt Count 232 MPV 9.4 Neut % (Auto) 61.0 Lymph % (Auto) 3.0 L [place] % (Auto) 35.8 H Eos % (Auto) 0.1 Baso % (Auto) 0.1 Neut # (Auto) 10.8 H Lymph # (Auto) 0.5 L [place] # (Auto) 6.3 H Eos # (Auto) 0.0 Baso # (Auto) 0.0 Neutrophils % (Manual) 55 Band Neutrophils % 7 H Lymphocytes % (Manual) 3 L Monocytes % (Manual) 35 H Toxic Granulation Present Platelet Estimate Normal Large Platelets Present Giant Platelets Present Polychromasia Slight Hypochromasia (manual) Slight Basophilic Stippling Slight Anisocytosis (manual) Slight Sodium Potassium Chloride Carbon Dioxide Anion Gap BUN Creatinine Est GFR ( Amer) Est GFR (Non-Af Amer) POC Glucose (mg/dL) 129 H Random Glucose Lactic Acid Calcium Total Bilirubin AST ALT Alkaline Phosphatase Total Protein Albumin Globulin Albumin/Globulin Ratio Urine Color [place] Urine Clarity Hazy Urine pH 5.0 Ur Specific [place] 1.025 Urine Protein 1+ H Urine Glucose (UA) Normal Urine Ketones Negative Urine Blood Negative Urine Nitrate Negative Urine Bilirubin Negative Urine Urobilinogen Normal Ur Leukocyte Esterase Neg Urine WBC (Auto) 11 H Urine RBC (Auto) 5 H Ur Squamous Epith Cells 2 Urine Bacteria Rare Hyaline Casts 3-5 H Granular Casts (Auto) 2-3 Fluid Source Fluid Appearance Fluid WBC Fluid RBC Fluid Tot Cell Count Fluid Neutrophils Fluid Lymphocytes Fld Monocyte/Macrophag Fluid Comment Hep Bs Antibody Blood Type Antibody Screen 12/05/18 12/05/18 12/05/18 06:07 07:52 12:31 WBC RBC Hgb Hct MCV MCH MCHC RDW Plt Count MPV Neut % (Auto) Lymph % (Auto) [place] % (Auto) Eos % (Auto) Baso % (Auto) Neut # (Auto) Lymph # (Auto) [place] # (Auto) Eos # (Auto) Baso # (Auto) Neutrophils % (Manual) Band Neutrophils % Lymphocytes % (Manual) Monocytes % (Manual) Toxic Granulation Platelet Estimate Large Platelets Giant Platelets Polychromasia Hypochromasia (manual) Basophilic Stippling Anisocytosis (manual) Sodium 134 Potassium 4.6 Chloride 100 Carbon Dioxide 29 Anion Gap 10 BUN 19 H Creatinine 1.0 Est GFR ( Amer) > 60 Est GFR (Non-Af Amer) 55 POC Glucose (mg/dL) 215 H 137 H Random Glucose 165 H D Lactic Acid Calcium 8.4 L Total Bilirubin 0.5 AST 24 ALT 19 Alkaline Phosphatase 104 Total Protein 5.6 L Albumin 2.4 L Globulin 3.2 Albumin/Globulin Ratio 0.7 L Urine Color Urine Clarity Urine pH Ur Specific [place] Urine Protein Urine Glucose (UA) Urine Ketones Urine Blood Urine Nitrate Urine Bilirubin Urine Urobilinogen Ur Leukocyte Esterase Urine WBC (Auto) Urine RBC (Auto) Ur Squamous Epith Cells Urine Bacteria Hyaline Casts Granular Casts (Auto) Fluid Source Fluid Appearance Fluid WBC Fluid RBC Fluid Tot Cell Count Fluid Neutrophils Fluid Lymphocytes Fld Monocyte/Macrophag Fluid Comment Hep Bs Antibody Blood Type Antibody Screen 12/05/18 12/05/18 12/05/18 16:02 16:04 16:25 WBC RBC Hgb Hct MCV MCH MCHC RDW Plt Count MPV Neut % (Auto) Lymph % (Auto) [place] % (Auto) Eos % (Auto) Baso % (Auto) Neut # (Auto) Lymph # (Auto) [place] # (Auto) Eos # (Auto) Baso # (Auto) Neutrophils % (Manual) Band Neutrophils % Lymphocytes % (Manual) Monocytes % (Manual) Toxic Granulation Platelet Estimate Large Platelets Giant Platelets Polychromasia Hypochromasia (manual) Basophilic Stippling Anisocytosis (manual) Sodium Potassium Chloride Carbon Dioxide Anion Gap BUN Creatinine Est GFR ( Amer) Est GFR (Non-Af Amer) POC Glucose (mg/dL) 59 L 58 L 70 Random Glucose Lactic Acid Calcium Total Bilirubin AST ALT Alkaline Phosphatase Total Protein Albumin Globulin Albumin/Globulin Ratio Urine Color Urine Clarity Urine pH Ur Specific [place] Urine Protein Urine Glucose (UA) Urine Ketones Urine Blood Urine Nitrate Urine Bilirubin Urine Urobilinogen Ur Leukocyte Esterase Urine WBC (Auto) Urine RBC (Auto) Ur Squamous Epith Cells Urine Bacteria Hyaline Casts Granular Casts (Auto) Fluid Source Fluid Appearance Fluid WBC Fluid RBC Fluid Tot Cell Count Fluid Neutrophils Fluid Lymphocytes Fld Monocyte/Macrophag Fluid Comment Hep Bs Antibody Blood Type Antibody Screen 12/05/18 16:35 WBC RBC Hgb Hct MCV MCH MCHC RDW Plt Count MPV Neut % (Auto) Lymph % (Auto) [place] % (Auto) Eos % (Auto) Baso % (Auto) Neut # (Auto) Lymph # (Auto) [place] # (Auto) Eos # (Auto) Baso # (Auto) Neutrophils % (Manual) Band Neutrophils % Lymphocytes % (Manual) Monocytes % (Manual) Toxic Granulation Platelet Estimate Large Platelets Giant Platelets Polychromasia Hypochromasia (manual) Basophilic Stippling Anisocytosis (manual) Sodium Potassium Chloride Carbon Dioxide Anion Gap BUN Creatinine Est GFR ( Amer) Est GFR (Non-Af Amer) POC Glucose (mg/dL) Random Glucose Lactic Acid 1.0 Calcium Total Bilirubin AST ALT Alkaline Phosphatase Total Protein Albumin Globulin Albumin/Globulin Ratio Urine Color Urine Clarity Urine pH Ur Specific [place] Urine Protein Urine Glucose (UA) Urine Ketones Urine Blood Urine Nitrate Urine Bilirubin Urine Urobilinogen Ur Leukocyte Esterase Urine WBC (Auto) Urine RBC (Auto) Ur Squamous Epith Cells Urine Bacteria Hyaline Casts Granular Casts (Auto) Fluid Source Fluid Appearance Fluid WBC Fluid RBC Fluid Tot Cell Count Fluid Neutrophils Fluid Lymphocytes Fld Monocyte/Macrophag Fluid Comment Hep Bs Antibody Blood Type Antibody Screen Radiology Impressions: Radiology Impressions Chest X-Ray 12/05/18 07:00 Impression: No significant interval change. Fingerstick Blood Sugar Results: 58 Critical Care Progress Note - Nutrition Nutrition: Nutrition Category Date Time Status Liquid Diet [DIET] Diets 12/04/18 Dinner Active Assessment/Plan (1) Empyema Assessment and plan: 68yo F. PMHx of CAD, Anxiety, Arthritis, Asthma, Bipolar Disorder, Depression, Diabetes, Gastritis, HTN, Hypercholesterolemia, Osteoporosis, sciatica, Paranoia, Schizophrenia. Neuro: alert and oriented x 3. Bipolar disorder restarted Topamax and Wellbutrin. Pulm: s/p empyema, hemothorax draining with decortication, chest tube in place, draining. CV: hemodynamically stable. Holding imdur and metoprolol for HTN, as patient's risk for worsening sepsis is high currently. Hem: anemia from intra-op blood loss, transfusing 2 units PRBC. Renal: no acute issues, will monitor urine output Endo: IDDM type 2, novolog 10 units ac + SISS ACHS + lantus 30 units qhs. GI: liquid diet ID: sepsis from recent empyema, continue Cipro and Vancomycin. DVT proph - heparin sq GI proph - not currently indicated Code status - full code Critical Care Time spent 35 minutes Multi-disciplinary rounds were performed with house staff, nursing, speech therapy, respiratory therapy, pharmacy and nutrition with integrated input from the primary team/attending and other consulting services. The documented time is cumulative and includes review of patient data/exams/labs/chart review and examination of the patient on rounds and throughout the day; time is exclusive of any procedures or teaching time. Current Visit: Yes Status: Acute
[2018-12-05] MEDS: (Lantus) Insulin Glargine, Recombinant SC SCH (22:00)
[2018-12-05] MEDS: metroNIDAZOLE IV 500 mg/100 ml 500 MG/100 ML BAG IVPB SCH (23:00)
--- NOTE | 2018-12-05 23:41 | CP.PCM.PN ---
Subjective - Date & Time of Evaluation Date of Evaluation: 12/05/18 Time of Evaluation: 20:45 - Subjective Subjective: Patient in ICU, complaining of pain at the chest tube insertion. Objective - Vital Signs/Intake and Output Vital Signs (last 24 hours): Temp Pulse Resp BP Pulse Ox 98.2 F 89 16 156/63 H 99 12/05/18 20:00 12/05/18 22:10 12/05/18 22:10 12/05/18 22:10 12/05/18 22:10 Intake and Output: 12/05/18 12/06/18 18:59 06:59 Intake Total 4140 1100 Output Total 540 50 Balance 3600 1050 - Medications Medications: Current Medications Acetaminophen (Tylenol 325mg Tab) 975 mg PO Q8 [facility] Last Admin: 12/05/18 22:00 Dose: 975 mg Bupropion HCl (Wellbutrin) 200 mg PO DAILY [facility] Last Admin: 12/05/18 10:51 Dose: 200 mg Dextrose (Glutose 15) 0 gm PO ONCE PRN; Protocol PRN Reason: Hypoglycemia Protocol Diphenhydramine HCl (Benadryl) 25 mg PO TID [facility] Docusate Sodium (Colace) 100 mg PO BID [facility] Last Admin: 12/05/18 18:07 Dose: 100 mg Glucagon (Glucagen Diagnostic Kit) 0 mg IM STAT PRN; Protocol PRN Reason: Hypoglycemia Protocol Guaifenesin/Dextromethorphan (Robitussin Dm) 5 ml PO Q4H PRN PRN Reason: Cough Last Admin: 12/03/18 13:51 Dose: 5 ml Heparin Sodium (Porcine) (Heparin) 5,000 units SC Q12H [facility] Last Admin: 12/05/18 18:15 Dose: 5,000 units Hydromorphone HCl (Dilaudid) 1 mg IVP Q3H PRN PRN Reason: Pain, severe (8-10) Last Admin: 12/05/18 18:30 Dose: 1 mg Vancomycin/Sodium Chloride (Vancomycin 1 Gm/Ns 200 Ml) 1 gm in 200 mls @ 133.333 mls/hr IVPB Q12H [facility]; Protocol Last Admin: 12/05/18 13:00 Dose: 133.333 mls/hr Ciprofloxacin (Cipro 400mg/200ml Dsw) 400 mg in 200 mls @ 133 mls/hr IVPB Q12H [facility]; Protocol Last Admin: 12/05/18 20:46 Dose: 133 mls/hr BUPIVACAINE 0.125%/0.9% NACL (Bupivacaine-Ns 0.125% On-Q Flight Surveyor) 600 mls @ 4 mls/hr IJ ONCE ONE Stop: 12/10/18 17:49 Lactated Ringer's (Lactated Ringer's) 1,000 mls @ 150 mls/hr IV .Q6H40M [facility] Last Admin: 12/05/18 18:07 Dose: Not Given Dextrose (Dextrose 5% In Water 1000 Ml) 1,000 mls @ 0 mls/hr IV .Q0M PRN; Protocol PRN Reason: Hypoglycemia Protocol Metronidazole (Flagyl) 500 mg in 100 mls @ 100 mls/hr IVPB Q8H [facility]; Protocol Last Admin: 12/05/18 23:00 Dose: 100 mls/hr Insulin Aspart (Novolog) 10 unit SC AC [facility] Last Admin: 12/05/18 16:11 Dose: Not Given Insulin Aspart (Novolog) 0 unit SC ACHS [facility]; Protocol Last Admin: 12/05/18 23:10 Dose: Not Given Insulin Glargine (Lantus) 30 unit SC HS [facility] Last Admin: 12/05/18 22:00 Dose: Not Given Ondansetron HCl (Zofran Inj) 4 mg IVP Q4H PRN PRN Reason: Nausea/Vomiting Last Admin: 12/05/18 05:01 Dose: 4 mg Topiramate (Topamax) 100 mg PO TID [facility] Last Admin: 12/05/18 18:06 Dose: 100 mg - Labs Labs: 12/05/18 06:07 12/05/18 06:07 PT 11.9 SECONDS (9.7-12.2) 12/03/18 10:54 INR 1.1 12/03/18 10:54 APTT 25 SECONDS (21-34) 12/03/18 10:54 - Constitutional Appears: No Acute Distress, Chronically Ill - Head Exam Head Exam: NORMOCEPHALIC - Eye Exam Eye Exam: Normal appearance - ENT Exam ENT Exam: Normal Exam - Neck Exam Neck Exam: Normal Inspection - Respiratory Exam Respiratory Exam: Rhonchi - Cardiovascular Exam Cardiovascular Exam: REGULAR RHYTHM - GI/Abdominal Exam GI & Abdominal Exam: Soft, Normal Bowel Sounds - Rectal Exam Rectal Exam: Deferred - Exam Exam: NORMAL INSPECTION - Extremities Exam Extremities Exam: Normal Inspection - Back Exam Back Exam: NORMAL INSPECTION - Neurological Exam Neurological Exam: Alert, Awake, Oriented x3 - Psychiatric Exam Psychiatric exam: Anxious - Skin Skin Exam: Dry, Intact, Normal Color Assessment and Plan (1) DKA (diabetic ketoacidoses) Status: Resolved (2) Acute exacerbation of chronic low back pain Status: Chronic (3) Sepsis syndrome Status: Acute (4) Bilateral bronchopneumonia Status: Acute (5) Recurrent right pleural effusion Assessment & Plan: S/p right thoracotomy, evacuation of empyema, and hematoma, with chest tubes insertion. Status: Acute
[2018-12-06] MEDS: Lactated Ringer's 1,000 ML IV SCH ×4 (00:48→20:29)
[2018-12-06] MEDS: Vancomycin 1 gm/NS 200 ml 1 GM/200 ML BAG IVPB SCH ×2 (01:00→12:38)
[2018-12-06] MEDS: HYDROmorphone 1 mg/ml ISec IVP PRN ×5 (04:57→20:27)
[2018-12-06 05:46] LABS: BASO % 0.3 % (0.0-2.0); EOS % 0.2 % (0.0-4.0); HEMOGLOBIN 9.4 g/dL (11.0-16.0); LYMPH # 0.6 K/uL (1.0-4.3); MEAN CELL VOLUME 93.3 fL (81.0-99.0); MEAN CORPUSCULAR HEMOGLOBIN 30.4 pg (27.0-31.0); MEAN CORPUSCULAR HGB CONC 32.6 g/dL (33.0-37.0); MEAN PLATELET VOLUME 9.1 fL (7.2-11.7); MONO # 6.4 K/uL (0.0-0.8); MONO % 41.6 % (0.0-10.0); NEUT # 8.3 K/uL (1.8-7.0); NEUT % 53.9 % (50.0-75.0); PLATELET COUNT 179 K/uL (130-400); RBC 3.08 Mil/uL (3.80-5.20); RED CELL DISTRIBUTION WIDTH 14.5 % (11.5-14.5); WHITE BLOOD COUNT 15.5 K/uL (4.8-10.8)
[2018-12-06 06:21] LABS: ALB/GLOB RATIO 0.7 (1.0-2.1); ALBUMIN 2.4 g/dL (3.5-5.0); ALT/SGPT 10 U/L (9-52); AST/SGOT 32 U/L (14-36); BLOOD UREA NITROGEN 19 mg/dL (7-17); CALCIUM 8.5 mg/dl (8.6-10.4); GFR NON-AFRICAN AMERICAN 55
--- NOTE | 2018-12-06 08:11 | RAD ---
Chest x-ray single frontal view HISTORY: Chest tubes. COMPARISON: 12/05/2018 FINDINGS: Surgical clips in the right axilla. Two chest tube projects to the right lung apex. Small loculated right pleural effusion. Consolidative changes noted within the right mid to lower lung zone and left lung base. Cardiomegaly. Atherosclerotic calcification at the aortic knob. Degenerative changes in the spine. Impression: No significant interval change.
[2018-12-06 08:26] LABS: BANDS 4 % (0-2); LYMPHOCYTE 2 % (20-40); MONOCYTE 32 % (0-10); NEUTROPHIL 62 % (50-75); TOTAL CELLS COUNTED 100
[2018-12-06 08:27] LABS: ANISOCYTOSIS SLIGHT; PLATELET ESTIMATE NORMAL (NORMAL); TOXIC GRANULATION PRESENT
[2018-12-06 08:28] LABS: HYPOCHROMIC SLIGHT; LARGE PLATELETS PRESENT; POLYCHROMIC SLIGHT
[2018-12-06] MEDS: (Novolog) Insulin Aspart, Recombinant 100 u/ml 10 ml vial SC SCH ×7 (08:36→21:44)
[2018-12-06] MEDS: Ciprofloxacin 400mg/200ml D5W 400 MG/200 ML BAG IVPB SCH ×2 (08:37→20:26)
[2018-12-06] MEDS: metroNIDAZOLE IV 500 mg/100 ml 500 MG/100 ML BAG IVPB SCH ×3 (08:39→22:42)
[2018-12-06] MEDS: guaiFENesin DM 100 mg-10 mg/5 ml UD PO PRN (08:43)
--- NOTE | 2018-12-06 09:57 | CP.PCM.PN ---
Subjective - Date & Time of Evaluation Date of Evaluation: 12/06/18 Time of Evaluation: 07:15 - Subjective Subjective: CT Surgery Pt seen and examined. No acute events overnight. Less R sided chest pain today. Encouraged her to get out of bed today and use IS. Chest tube output decreasing; Ant CT 20, Post CT 50 serosanguinous. Cuadra out, voiding. Objective - Vital Signs/Intake and Output Vital Signs (last 24 hours): Temp Pulse Resp BP Pulse Ox 97.9 F 112 H 13 142/57 L 96 12/06/18 08:00 12/06/18 09:00 12/06/18 09:00 12/06/18 09:10 12/06/18 09:00 Intake and Output: 12/06/18 12/06/18 06:59 18:59 Intake Total 2780 633 Output Total 840 100 Balance 1940 533 - Medications Medications: Current Medications Acetaminophen (Tylenol 325mg Tab) 975 mg PO Q8 [facility] Last Admin: 12/06/18 05:00 Dose: 975 mg Bupropion HCl (Wellbutrin) 200 mg PO DAILY [facility] Last Admin: 12/05/18 10:51 Dose: 200 mg Dextrose (Glutose 15) 0 gm PO ONCE PRN; Protocol PRN Reason: Hypoglycemia Protocol Diphenhydramine HCl (Benadryl) 25 mg PO TID [facility] Docusate Sodium (Colace) 100 mg PO BID [facility] Last Admin: 12/05/18 18:07 Dose: 100 mg Glucagon (Glucagen Diagnostic Kit) 0 mg IM STAT PRN; Protocol PRN Reason: Hypoglycemia Protocol Guaifenesin/Dextromethorphan (Robitussin Dm) 5 ml PO Q4H PRN PRN Reason: Cough Last Admin: 12/06/18 08:43 Dose: 5 ml Heparin Sodium (Porcine) (Heparin) 5,000 units SC Q12H [facility] Last Admin: 12/06/18 05:50 Dose: 5,000 units Hydromorphone HCl (Dilaudid) 1 mg IVP Q3H PRN PRN Reason: Pain, severe (8-10) Last Admin: 12/06/18 08:57 Dose: 1 mg Vancomycin/Sodium Chloride (Vancomycin 1 Gm/Ns 200 Ml) 1 gm in 200 mls @ 133.333 mls/hr IVPB Q12H [facility]; Protocol Last Admin: 12/06/18 01:00 Dose: 133.333 mls/hr Ciprofloxacin (Cipro 400mg/200ml Dsw) 400 mg in 200 mls @ 133 mls/hr IVPB Q12H [facility]; Protocol Last Admin: 12/06/18 08:37 Dose: 133 mls/hr BUPIVACAINE 0.125%/0.9% NACL (Bupivacaine-Ns 0.125% On-Q Feather Separator) 600 mls @ 4 mls/hr IJ ONCE ONE Stop: 12/10/18 17:49 Lactated Ringer's (Lactated Ringer's) 1,000 mls @ 150 mls/hr IV .Q6H40M [facility] Last Admin: 12/06/18 05:55 Dose: 150 mls/hr Dextrose (Dextrose 5% In Water 1000 Ml) 1,000 mls @ 0 mls/hr IV .Q0M PRN; Kal col PRN Reason: Hypoglycemia Protocol Metronidazole (Flagyl) 500 mg in 100 mls @ 100 mls/hr IVPB Q8H [facility]; Protocol Last Admin: 12/06/18 08:39 Dose: 100 mls/hr Insulin Aspart (Novolog) 10 unit SC AC [facility] Last Admin: 12/06/18 08:36 Dose: 10 units Insulin Aspart (Novolog) 0 unit SC ACHS [facility]; Protocol Last Admin: 12/06/18 08:36 Dose: 2 units Insulin Glargine (Lantus) 30 unit SC HS [facility] Last Admin: 12/05/18 22:00 Dose: Not Given Ondansetron HCl (Zofran Inj) 4 mg IVP Q4H PRN PRN Reason: Nausea/Vomiting Last Admin: 12/05/18 05:01 Dose: 4 mg Topiramate (Topamax) 100 mg PO TID [facility] Last Admin: 12/05/18 18:06 Dose: 100 mg - Labs Labs: 12/06/18 05:42 12/06/18 05:42 PT 11.9 SECONDS (9.7-12.2) 12/03/18 10:54 INR 1.1 12/03/18 10:54 APTT 25 SECONDS (21-34) 12/03/18 10:54 - Constitutional Appears: Non-toxic, No Acute Distress - Head Exam Head Exam: ATRAUMATIC, NORMOCEPHALIC - Eye Exam Eye Exam: EOMI. absent: Scleral icterus - Respiratory Exam Respiratory Exam: NORMAL BREATHING PATTERN. absent: Accessory Muscle Use, Respiratory Distress Additional comments: chest tubes in place, dressings C/D/I - GI/Abdominal Exam GI & Abdominal Exam: Soft. absent: Distended, Tenderness - Extremities Exam Extremities Exam: Normal Capillary Refill, Pedal Edema (mild). absent: Calf Tenderness - Neurological Exam Neurological Exam: Alert, Awake - Skin Skin Exam: Dry, Warm Assessment and Plan - Assessment and Plan (Free Text) Assessment: 68F POD#2 s/p R thoracotomy with decortication, R pleural & Lung biopsy, evacuation of retained hemothorax/empyema Plan: Out of bed to Chair today. F/U biopsy and Cx results Daily CXR Monitor chest tubes for output and leaks. D/W Dr. Grace Morales PGY4
--- NOTE | 2018-12-06 15:11 | CP.CCUPN ---
CCU Objective - Vital Signs / Intake & Output Vital Signs (Last 4 hours): Vital Signs Temp Pulse Resp BP Pulse Ox 12/06/18 14:10 98 H 13 172/70 H 97 12/06/18 13:10 116 H 14 162/73 H 100 12/06/18 12:10 96 H 13 169/68 H 100 12/06/18 12:00 97.2 F L 12/06/18 11:35 101 H 11 L 162/78 H 100 Intake and Output (Last 8hrs): Intake & Output 12/06/18 12/06/18 12/06/18 06:59 14:59 22:59 Intake Total 1680 1900 Output Total 790 400 Balance 890 1500 Weight 197 lb 8 oz Intake: Intake, IV Amount 1200 1150 RT upper arm power glide 1200 1150 Oral 480 750 Output: Chest Tube Drainage 90 Right Upper Anterior 30 Chest Right Upper Posterior 60 Chest Urine 700 400 Urethral (Cuadra) 700 400 Stool 0 Other: # Voids Urethral (Cuadra) 1 - Medications Active Medications: Active Medications Generic Name Dose Route Start Last Admin Trade Name Freq PRN Reason Stop Dose Admin Acetaminophen 975 mg 12/05/18 10:00 12/06/18 13:24 Tylenol 325mg Tab PO 975 mg Q8 [facility] Administration Bupropion HCl 200 mg 12/05/18 10:00 12/06/18 10:53 Wellbutrin PO 200 mg DAILY [facility] Administration Dextrose 0 gm 12/05/18 11:00 Glutose 15 PO ONCE PRN Hypoglycemia Protocol Protocol Diphenhydramine HCl 25 mg 12/06/18 10:00 12/06/18 13:30 Benadryl PO Not Given TID [facility] Docusate Sodium 100 mg 11/20/18 20:45 12/06/18 10:53 Colace PO 100 mg BID [facility] Administration Glucagon 0 mg 12/05/18 10:42 Glucagen Diagnostic Kit IM STAT PRN Hypoglycemia Protocol Protocol Guaifenesin/Dextromethorphan 5 ml 11/20/18 14:25 12/06/18 08:43 Robitussin Dm PO 5 ml Q4H PRN Administration Cough Heparin Sodium (Porcine) 5,000 units 12/05/18 18:15 12/06/18 05:50 Heparin SC 5,000 units Q12H [facility] Administration Hydromorphone HCl 1 mg 12/05/18 01:19 12/06/18 13:23 Dilaudid IVP 1 mg Q3H PRN Administration Pain, severe (8-10) Vancomycin/Sodium Chloride 1 gm in 200 mls @ 133.333 mls/hr 11/23/18 01:00 12/06/18 12:38 Vancomycin 1 Gm/Ns 200 Ml IVPB 133.333 mls/hr Q12H [facility] Administration Protocol Ciprofloxacin 400 mg in 200 mls @ 133 mls/hr 11/24/18 21:00 12/06/18 08:37 Cipro 400mg/200ml Dsw IVPB 133 mls/hr Q12H [facility] Administration Protocol BUPIVACAINE 0.125%/0.9% NACL 600 mls @ 4 mls/hr 12/04/18 11:50 Bupivacaine-Ns 0.125% On-Q Garnett Fixer IJ 12/10/18 17:49 ONCE ONE Lactated Ringer's 1,000 mls @ 150 mls/hr 12/05/18 10:45 12/06/18 14:38 Lactated Ringer's IV 150 mls/hr .Q6H40M [facility] Administration Dextrose 1,000 mls @ 0 mls/hr 12/05/18 11:00 Dextrose 5% In Water 1000 Ml IV .Q0M PRN Hypoglycemia Protocol Protocol Per Protocol Metronidazole 500 mg in 100 mls @ 100 mls/hr 12/05/18 23:00 12/06/18 14:39 Flagyl IVPB 100 mls/hr Q8H [facility] Administration Protocol Insulin Aspart 10 unit 11/25/18 07:30 12/06/18 12:37 Novolog SC 10 units AC [facility] Administration Insulin Aspart 0 unit 12/05/18 11:30 12/06/18 12:37 Novolog SC 2 units ACHS [facility] Administration Protocol Insulin Glargine 30 unit 11/23/18 22:00 12/05/18 22:00 Lantus SC Not Given HS [facility] Ondansetron HCl 4 mg 12/05/18 03:15 12/05/18 05:01 Zofran Inj IVP 4 mg Q4H PRN Administration Nausea/Vomiting Topiramate 100 mg 12/05/18 10:00 12/06/18 13:24 Topamax PO 100 mg TID [facility] Administration - Patient Studies Lab Studies: Microbiology Studies 12/04/18 18:14 Mycobacterial Culture - Preliminary Other: Please Indicate 12/05/18 01:34 MRSA Culture (Admit) - Final Naris MRSA NOT DETECTED 12/04/18 18:14 Gram Stain - Final Pleural Fluid Body Fluid Culture - Preliminary NO GROWTH AFTER 2 DAYS 12/04/18 18:14 Gram Stain - Final Other: Please Indicate Tissue Culture - Final No Growth 12/04/18 18:14 Gram Stain - Final Lung Tissue Culture - Final No Growth 12/04/18 18:14 Anaerobic Culture - Final Chest No growth. Lab Studies 12/06/18 12/06/18 12/06/18 Range/Units 12:27 08:12 05:42 WBC (4.8-10.8) K/uL RBC (3.80-5.20) Mil/uL Hgb (11.0-16.0) g/dL Hct (34.0-47.0) % MCV (81.0-99.0) fL MCH (27.0-31.0) pg MCHC (33.0-37.0) g/dL RDW (11.5-14.5) % Plt Count (130-400) K/uL MPV (7.2-11.7) fL Neut % (Auto) (50.0-75.0) % Lymph % (Auto) (20.0-40.0) % [place] % (Auto) (0.0-10.0) % Eos % (Auto) (0.0-4.0) % Baso % (Auto) (0.0-2.0) % Neut # (Auto) (1.8-7.0) K/uL Lymph # (Auto) (1.0-4.3) K/uL [place] # (Auto) (0.0-0.8) K/uL Eos # (Auto) (0.0-0.7) K/uL Baso # (Auto) (0.0-0.2) K/uL Neutrophils % (Manual) (50-75) % Band Neutrophils % (0-2) % Lymphocytes % (Manual) (20-40) % Monocytes % (Manual) (0-10) % Toxic Granulation Platelet Estimate (NORMAL) Large Platelets Polychromasia Hypochromasia (manual) Anisocytosis (manual) Sodium (132-148) mmol/L Potassium (3.6-5.2) mmol/L Chloride (98-107) mmol/L Carbon Dioxide (22-30) mmol/L Anion Gap (10-20) BUN (7-17) mg/dL Creatinine (0.7-1.2) mg/dL Est GFR ( Amer) Est GFR (Non-Af Amer) POC Glucose (mg/dL) 212 H 209 H (65-110) mg/dL Random Glucose (65-105) mg/dL Lactic Acid 1.3 (0.7-2.1) mmol/L Calcium (8.6-10.4) mg/dl Total Bilirubin (0.2-1.3) mg/dL AST (14-36) U/L ALT (9-52) U/L Alkaline Phosphatase (38-126) U/L Total Protein (6.3-8.3) g/dL Albumin (3.5-5.0) g/dL Globulin (2.2-3.9) gm/dL Albumin/Globulin Ratio (1.0-2.1) 12/06/18 12/06/18 12/05/18 Range/Units 05:42 05:42 23:47 WBC 15.5 H (4.8-10.8) K/uL RBC 3.08 L (3.80-5.20) Mil/uL Hgb 9.4 L (11.0-16.0) g/dL Hct 28.8 L (34.0-47.0) % MCV 93.3 (81.0-99.0) fL MCH 30.4 (27.0-31.0) pg MCHC 32.6 L (33.0-37.0) g/dL RDW 14.5 (11.5-14.5) % Plt Count 179 (130-400) K/uL MPV 9.1 (7.2-11.7) fL Neut % (Auto) 53.9 (50.0-75.0) % Lymph % (Auto) 4.0 L (20.0-40.0) % [place] % (Auto) 41.6 H (0.0-10.0) % Eos % (Auto) 0.2 (0.0-4.0) % Baso % (Auto) 0.3 (0.0-2.0) % Neut # (Auto) 8.3 H (1.8-7.0) K/uL Lymph # (Auto) 0.6 L (1.0-4.3) K/uL [place] # (Auto) 6.4 H (0.0-0.8) K/uL Eos # (Auto) 0.0 (0.0-0.7) K/uL Baso # (Auto) 0.0 (0.0-0.2) K/uL Neutrophils % (Manual) 62 (50-75) % Band Neutrophils % 4 H (0-2) % Lymphocytes % (Manual) 2 L (20-40) % Monocytes % (Manual) 32 H (0-10) % Toxic Granulation Present Platelet Estimate Normal (NORMAL) Large Platelets Present Polychromasia Slight Hypochromasia (manual) Slight Anisocytosis (manual) Slight Sodium 132 (132-148) mmol/L Potassium 4.0 (3.6-5.2) mmol/L Chloride 101 (98-107) mmol/L Carbon Dioxide 27 (22-30) mmol/L Anion Gap 8 L (10-20) BUN 19 H (7-17) mg/dL Creatinine 1.0 (0.7-1.2) mg/dL Est GFR ( Amer) > 60 Est GFR (Non-Af Amer) 55 POC Glucose (mg/dL) (65-110) mg/dL Random Glucose 154 H (65-105) mg/dL Lactic Acid 1.0 (0.7-2.1) mmol/L Calcium 8.5 L (8.6-10.4) mg/dl Total Bilirubin 0.9 (0.2-1.3) mg/dL AST 32 (14-36) U/L ALT 10 (9-52) U/L Alkaline Phosphatase 129 H D (38-126) U/L Total Protein 5.7 L (6.3-8.3) g/dL Albumin 2.4 L (3.5-5.0) g/dL Globulin 3.2 (2.2-3.9) gm/dL Albumin/Globulin Ratio 0.7 L (1.0-2.1) 12/05/18 12/05/18 12/05/18 Range/Units 21:06 16:35 16:25 WBC (4.8-10.8) K/uL RBC (3.80-5.20) Mil/uL Hgb (11.0-16.0) g/dL Hct (34.0-47.0) % MCV (81.0-99.0) fL MCH (27.0-31.0) pg MCHC (33.0-37.0) g/dL RDW (11.5-14.5) % Plt Count (130-400) K/uL MPV (7.2-11.7) fL Neut % (Auto) (50.0-75.0) % Lymph % (Auto) (20.0-40.0) % [place] % (Auto) (0.0-10.0) % Eos % (Auto) (0.0-4.0) % Baso % (Auto) (0.0-2.0) % Neut # (Auto) (1.8-7.0) K/uL Lymph # (Auto) (1.0-4.3) K/uL [place] # (Auto) (0.0-0.8) K/uL Eos # (Auto) (0.0-0.7) K/uL Baso # (Auto) (0.0-0.2) K/uL Neutrophils % (Manual) (50-75) % Band Neutrophils % (0-2) % Lymphocytes % (Manual) (20-40) % Monocytes % (Manual) (0-10) % Toxic Granulation Platelet Estimate (NORMAL) Large Platelets Polychromasia Hypochromasia (manual) Anisocytosis (manual) Sodium (132-148) mmol/L Potassium (3.6-5.2) mmol/L Chloride (98-107) mmol/L Carbon Dioxide (22-30) mmol/L Anion Gap (10-20) BUN (7-17) mg/dL Creatinine (0.7-1.2) mg/dL Est GFR ( Amer) Est GFR (Non-Af Amer) POC Glucose (mg/dL) 79 70 (65-110) mg/dL Random Glucose (65-105) mg/dL Lactic Acid 1.0 (0.7-2.1) mmol/L Calcium (8.6-10.4) mg/dl Total Bilirubin (0.2-1.3) mg/dL AST (14-36) U/L ALT (9-52) U/L Alkaline Phosphatase (38-126) U/L Total Protein (6.3-8.3) g/dL Albumin (3.5-5.0) g/dL Globulin (2.2-3.9) gm/dL Albumin/Globulin Ratio (1.0-2.1) 12/05/18 12/05/18 Range/Units 16:04 16:02 WBC (4.8-10.8) K/uL RBC (3.80-5.20) Mil/uL Hgb (11.0-16.0) g/dL Hct (34.0-47.0) % MCV (81.0-99.0) fL MCH (27.0-31.0) pg MCHC (33.0-37.0) g/dL RDW (11.5-14.5) % Plt Count (130-400) K/uL MPV (7.2-11.7) fL Neut % (Auto) (50.0-75.0) % Lymph % (Auto) (20.0-40.0) % [place] % (Auto) (0.0-10.0) % Eos % (Auto) (0.0-4.0) % Baso % (Auto) (0.0-2.0) % Neut # (Auto) (1.8-7.0) K/uL Lymph # (Auto) (1.0-4.3) K/uL [place] # (Auto) (0.0-0.8) K/uL Eos # (Auto) (0.0-0.7) K/uL Baso # (Auto) (0.0-0.2) K/uL Neutrophils % (Manual) (50-75) % Band Neutrophils % (0-2) % Lymphocytes % (Manual) (20-40) % Monocytes % (Manual) (0-10) % Toxic Granulation Platelet Estimate (NORMAL) Large Platelets Polychromasia Hypochromasia (manual) Anisocytosis (manual) Sodium (132-148) mmol/L Potassium (3.6-5.2) mmol/L Chloride (98-107) mmol/L Carbon Dioxide (22-30) mmol/L Anion Gap (10-20) BUN (7-17) mg/dL Creatinine (0.7-1.2) mg/dL Est GFR ( Amer) Est GFR (Non-Af Amer) POC Glucose (mg/dL) 58 L 59 L (65-110) mg/dL Random Glucose (65-105) mg/dL Lactic Acid (0.7-2.1) mmol/L Calcium (8.6-10.4) mg/dl Total Bilirubin (0.2-1.3) mg/dL AST (14-36) U/L ALT (9-52) U/L Alkaline Phosphatase (38-126) U/L Total Protein (6.3-8.3) g/dL Albumin (3.5-5.0) g/dL Globulin (2.2-3.9) gm/dL Albumin/Globulin Ratio (1.0-2.1) Laboratory Results - last 24 hr 12/05/18 12/05/18 12/05/18 16:02 16:04 16:25 WBC RBC Hgb Hct MCV MCH MCHC RDW Plt Count MPV Neut % (Auto) Lymph % (Auto) [place] % (Auto) Eos % (Auto) Baso % (Auto) Neut # (Auto) Lymph # (Auto) [place] # (Auto) Eos # (Auto) Baso # (Auto) Neutrophils % (Manual) Band Neutrophils % Lymphocytes % (Manual) Monocytes % (Manual) Toxic Granulation Platelet Estimate Large Platelets Polychromasia Hypochromasia (manual) Anisocytosis (manual) Sodium Potassium Chloride Carbon Dioxide Anion Gap BUN Creatinine Est GFR ( Amer) Est GFR (Non-Af Amer) POC Glucose (mg/dL) 59 L 58 L 70 Random Glucose Lactic Acid Calcium Total Bilirubin AST ALT Alkaline Phosphatase Total Protein Albumin Globulin Albumin/Globulin Ratio 12/05/18 12/05/18 12/05/18 16:35 21:06 23:47 WBC RBC Hgb Hct MCV MCH MCHC RDW Plt Count MPV Neut % (Auto) Lymph % (Auto) [place] % (Auto) Eos % (Auto) Baso % (Auto) Neut # (Auto) Lymph # (Auto) [place] # (Auto) Eos # (Auto) Baso # (Auto) Neutrophils % (Manual) Band Neutrophils % Lymphocytes % (Manual) Monocytes % (Manual) Toxic Granulation Platelet Estimate Large Platelets Polychromasia Hypochromasia (manual) Anisocytosis (manual) Sodium Potassium Chloride Carbon Dioxide Anion Gap BUN Creatinine Est GFR ( Amer) Est GFR (Non-Af Amer) POC Glucose (mg/dL) 79 Random Glucose Lactic Acid 1.0 1.0 Calcium Total Bilirubin AST ALT Alkaline Phosphatase Total Protein Albumin Globulin Albumin/Globulin Ratio 12/06/18 12/06/18 12/06/18 05:42 05:42 05:42 WBC 15.5 H RBC 3.08 L Hgb 9.4 L Hct 28.8 L MCV 93.3 MCH 30.4 MCHC 32.6 L RDW 14.5 Plt Count 179 MPV 9.1 Neut % (Auto) 53.9 Lymph % (Auto) 4.0 L [place] % (Auto) 41.6 H Eos % (Auto) 0.2 Baso % (Auto) 0.3 Neut # (Auto) 8.3 H Lymph # (Auto) 0.6 L [place] # (Auto) 6.4 H Eos # (Auto) 0.0 Baso # (Auto) 0.0 Neutrophils % (Manual) 62 Band Neutrophils % 4 H Lymphocytes % (Manual) 2 L Monocytes % (Manual) 32 H Toxic Granulation Present Platelet Estimate Normal Large Platelets Present Polychromasia Slight Hypochromasia (manual) Slight Anisocytosis (manual) Slight Sodium 132 Potassium 4.0 Chloride 101 Carbon Dioxide 27 Anion Gap 8 L BUN 19 H Creatinine 1.0 Est GFR ( Amer) > 60 Est GFR (Non-Af Amer) 55 POC Glucose (mg/dL) Random Glucose 154 H Lactic Acid 1.3 Calcium 8.5 L Total Bilirubin 0.9 AST 32 ALT 10 Alkaline Phosphatase 129 H D Total Protein 5.7 L Albumin 2.4 L Globulin 3.2 Albumin/Globulin Ratio 0.7 L 12/06/18 12/06/18 08:12 12:27 WBC RBC Hgb Hct MCV MCH MCHC RDW Plt Count MPV Neut % (Auto) Lymph % (Auto) [place] % (Auto) Eos % (Auto) Baso % (Auto) Neut # (Auto) Lymph # (Auto) [place] # (Auto) Eos # (Auto) Baso # (Auto) Neutrophils % (Manual) Band Neutrophils % Lymphocytes % (Manual) Monocytes % (Manual) Toxic Granulation Platelet Estimate Large Platelets Polychromasia Hypochromasia (manual) Anisocytosis (manual) Sodium Potassium Chloride Carbon Dioxide Anion Gap BUN Creatinine Est GFR ( Amer) Est GFR (Non-Af Amer) POC Glucose (mg/dL) 209 H 212 H Random Glucose Lactic Acid Calcium Total Bilirubin AST ALT Alkaline Phosphatase Total Protein Albumin Globulin Albumin/Globulin Ratio Radiology Impressions: Radiology Impressions Chest X-Ray 12/06/18 07:00 Impression: No significant interval change. Fingerstick Blood Sugar Results: 212 Critical Care Progress Note - Nutrition Nutrition: Nutrition Category Date Time Status Consistent Carbohydrate [DIET] Diets 12/05/18 Dinner Active Assessment/Plan (1) Empyema Assessment and plan: 68yo F. PMHx of CAD, Anxiety, Arthritis, Asthma, Bipolar Disorder, Depression, Diabetes, Gastritis, HTN, Hypercholesterolemia, Osteoporosis, sciatica, Paranoia, Schizophrenia. Neuro: alert and oriented x 3. Bipolar disorder restarted Topamax and Wellbutrin. Pulm: s/p empyema, hemothorax draining with decortication, chest tube in place, draining. CV: hemodynamically stable. Blood pressure now rising to hypertensive levels, restarting imdur and metoprolol. Hem: anemia from intra-op blood loss, transfused 2 units PRBC (12/05), now stable. Renal: no acute issues, will monitor urine output Endo: IDDM type 2, novolog 10 units ac + SISS ACHS + lantus 30 units qhs. GI: liquid diet ID: sepsis from recent empyema, continue Cipro and Vancomycin. DVT proph - heparin sq GI proph - not currently indicated Code status - full code Clinically stable for downgrade to the floors. Critical Care Time spent 35 minutes Multi-disciplinary rounds were performed with house staff, nursing, speech t herapy, respiratory therapy, pharmacy and nutrition with integrated input from the primary team/attending and other consulting services. The documented time is cumulative and includes review of patient data/exams/labs/chart review and examination of the patient on rounds and throughout the day; time is exclusive of any procedures or teaching time. Current Visit: Yes Status: Acute
[2018-12-06] MEDS: (Lantus) Insulin Glargine, Recombinant SC SCH (22:38)
--- NOTE | 2018-12-06 23:18 | CP.PCM.PN ---
Subjective - Date & Time of Evaluation Date of Evaluation: 12/06/18 Time of Evaluation: 20:00 - Subjective Subjective: Patient alert, oriented x 3, in no respiratory distress. Afebrile. CXR unchanged with right chest tube and effusion. Objective - Vital Signs/Intake and Output Vital Signs (last 24 hours): Temp Pulse Resp BP Pulse Ox 98.5 F 104 H 18 178/67 H 95 12/06/18 20:00 12/06/18 20:00 12/06/18 20:00 12/06/18 20:00 12/06/18 20:00 Intake and Output: 12/06/18 12/07/18 18:59 06:59 Intake Total 2500 Output Total 650 Balance 1850 - Medications Medications: Current Medications Acetaminophen (Tylenol 325mg Tab) 975 mg PO Q8 [facility] Last Admin: 12/06/18 22:02 Dose: 975 mg Bupropion HCl (Wellbutrin) 200 mg PO DAILY [facility] Last Admin: 12/06/18 10:53 Dose: 200 mg Dextrose (Glutose 15) 0 gm PO ONCE PRN; Protocol PRN Reason: Hypoglycemia Protocol Diphenhydramine HCl (Benadryl) 25 mg PO TID [facility] Last Admin: 12/06/18 17:25 Dose: Not Given Docusate Sodium (Colace) 100 mg PO BID [facility] Last Admin: 12/06/18 17:25 Dose: 100 mg Glucagon (Glucagen Diagnostic Kit) 0 mg IM STAT PRN; Protocol PRN Reason: Hypoglycemia Protocol Guaifenesin/Dextromethorphan (Robitussin Dm) 5 ml PO Q4H PRN PRN Reason: Cough Last Admin: 12/06/18 08:43 Dose: 5 ml Heparin Sodium (Porcine) (Heparin) 5,000 units SC Q12H [facility] Last Admin: 12/06/18 17:26 Dose: 5,000 units Hydromorphone HCl (Dilaudid) 1 mg IVP Q3H PRN PRN Reason: Pain, severe (8-10) Last Admin: 12/06/18 20:27 Dose: 1 mg Vancomycin/Sodium Chloride (Vancomycin 1 Gm/Ns 200 Ml) 1 gm in 200 mls @ 133.333 mls/hr IVPB Q12H [facility]; Protocol Last Admin: 12/06/18 12:38 Dose: 133.333 mls/hr Ciprofloxacin (Cipro 400mg/200ml Dsw) 400 mg in 200 mls @ 133 mls/hr IVPB Q12H [facility]; Protocol Last Admin: 12/06/18 20:26 Dose: 133 mls/hr BUPIVACAINE 0.125%/0.9% NACL (Bupivacaine-Ns 0.125% On-Q Gravity Meter Operator) 600 mls @ 4 mls/hr IJ ONCE ONE Stop: 12/10/18 17:49 Lactated Ringer's (Lactated Ringer's) 1,000 mls @ 150 mls/hr IV .Q6H40M [facility] Last Admin: 12/06/18 20:29 Dose: 150 mls/hr Dextrose (Dextrose 5% In Water 1000 Ml) 1,000 mls @ 0 mls/hr IV .Q0M PRN; Protocol PRN Reason: Hypoglycemia Protocol Metronidazole (Flagyl) 500 mg in 100 mls @ 100 mls/hr IVPB Q8H [facility]; Protocol Last Admin: 12/06/18 22:42 Dose: 100 mls/hr Insulin Aspart (Novolog) 0 unit SC ACHS [facility]; Protocol Last Admin: 12/06/18 21:44 Dose: Not Given Insulin Aspart (Novolog) 12 unit SC AC [facility] Insulin Glargine (Lantus) 34 unit SC HS [facility] Last Admin: 12/06/18 22:38 Dose: 34 u Isosorbide Mononitrate (Imdur Er) 30 mg PO DAILY [facility] Last Admin: 12/06/18 16:31 Dose: 30 mg Ondansetron HCl (Zofran Inj) 4 mg IVP Q4H PRN PRN Reason: Nausea/Vomiting Last Admin: 12/05/18 05:01 Dose: 4 mg Topiramate (Topamax) 100 mg PO TID [facility] Last Admin: 12/06/18 17:26 Dose: 100 mg - Labs Labs: 12/06/18 05:42 12/06/18 05:42 PT 11.9 SECONDS (9.7-12.2) 12/03/18 10:54 INR 1.1 12/03/18 10:54 APTT 25 SECONDS (21-34) 12/03/18 10:54 - Constitutional Appears: No Acute Distress, Chronically Ill - Head Exam Head Exam: NORMOCEPHALIC - Eye Exam Eye Exam: Normal appearance - ENT Exam ENT Exam: Normal Exam - Neck Exam Neck Exam: Normal Inspection - Respiratory Exam Respiratory Exam: Rhonchi - Cardiovascular Exam Cardiovascular Exam: REGULAR RHYTHM - GI/Abdominal Exam GI & Abdominal Exam: Soft, Normal Bowel Sounds - Rectal Exam Rectal Exam: Deferred - Extremities Exam Extremities Exam: Normal Inspection - Back Exam Back Exam: NORMAL INSPECTION - Neurological Exam Neurological Exam: Alert, Awake, Oriented x3 - Psychiatric Exam Psychiatric exam: Anxious - Skin Skin Exam: Dry, Intact, Warm Assessment and Plan (1) DKA (diabetic ketoacidoses) Status: Resolved (2) Acute exacerbation of chronic low back pain Status: Chronic (3) Sepsis syndrome Status: Acute (4) Bilateral bronchopneumonia Status: Acute (5) Recurrent right pleural effusion Status: Acute
[2018-12-07] MEDS: Vancomycin 1 gm/NS 200 ml 1 GM/200 ML BAG IVPB SCH ×2 (01:16→12:10)
--- NOTE | 2018-12-07 01:31 | OP ---
PROCEDURE DATE: 12/04/2018 PREOPERATIVE DIAGNOSES: 1. Loculated empyema, right chest. 2. Shortness of breath. 3. Trapped right lower and middle lobe. POSTOPERATIVE DIAGNOSES: 1. Loculated empyema. 2. Hemothorax. 3. Trapped right middle and lower lobe. OPERATIVE PROCEDURES: 1. Exploratory right thoracotomy. 2. Evacuation of hematoma. 3. Evacuation of empyema. 4. Partial parietal pleurectomy. 5. Decortication. 6. Right lower lobe wedge biopsy. 7. Pleural biopsy. 8. Lysis of adhesions. 9. On Q catheter placement. SURGEON: Ty Edwards MD ENVIRONMENTAL SYSTEMS COORDINATOR: Jermaine Adam DO ANESTHESIOLOGIST: 1. Rigoberto Reece MD 2. Angelica Peres CRNA ANESTHESIA: DOUBLE LUMEN ENDOTRACHEAL GENERAL OPERATIVE FINDINGS: As the lateral thoracotomy incision was deepened, we encountered a large amount of soft tissue fluid which appeared to be turbid. C and S of this fluid was performed subsequently. The bone, was extremely brittle from advanced osteoporosis and as we were opening the fifth intercostal space, 6th rib fractured spontaneously. Upon entrance to the pleural cavity, first thing we encountered was a massive amount of hematoma, which was removed. Hematoma was located at posterior lateral area of the lower right hemithorax. Next, we encountered loculated empyema which was subsequently also evacuated using sharp and blunt dissection. Lung was adherent to parietal pleura and had to be lysed either under direct vision or under thoracoscopic guidance. Almost entire trapped lung was decorticated and was re-expanded. DESCRIPTION OF PROCEDURE: The patient was taken to operating room where under a satisfactory endotracheal double lumen general anesthesia, the patient was placed for right thoracotomy position and operative field was prepared and draped in a sterile fashion. Next, the right lateral thoracotomy incision extending from the tip of the scapula to the lateral border of the mammary fold and was deepened using hot cautery. A large amount of turbid fluid was encountered which was subsequently aspirated, and removed; the fluid sent out for C and S Latissimus dorsi and serratus muscles were identified, and these were very edematous and pale. Latissimus dorsi muscle was transected along the line of incision using hot cautery. Bleeding points were electrocauterized. Next, auscultation triangle was opened and manually fifth rib was identified, and intercostal space was entered through fifth intercostal space after partially transecting serratus anterior muscle. Pleural cavity was entered carefully not to injure the lung. After intercostal space was opened along the upper border of the sixth rib, the pleural cavity was entered and manually explored. At this time, large amount of blood clots were identified; they were removed manually as well as with Yankauer device. Empyema fluid was also encountered and it was collected into the Lukens tubes and were sent out for microbiological, cytological and chemical studies. Finochetto retractors was inserted, and was progressively opened. At this time, the sixth rib fractured spontaneously. As the pleural content was removed, pleural adhesions were encountered, and they were lysed in the usual manner. Next, decortication was carried out in the usual manner using sharp and blunt dissection using combination of multiple instruments, and extreme care was exercised not to damage the lung. At this point, I freed up the right lower lobe from the diaphragm and was able to remove pleural peel from most of the trapped lung; re-expanding the right lower lobe as well as the middle lobe. The posterior segment of the upper lobe was found to be trapped and had to perform decortication. Right lower lobe was wedged out using BeiBei powered driven stapler loaded with 45mm blue cartridge, and specimen for parietal pleurectomy was sent out for microbiological and pathologic studies. After satisfactory hemostasis and freed up all trapped lung, thoracic cavity was irrigated with copious amount of normal saline solution, following which two chest tubes i.e. 28-Indian and 32-Indian respectively, 28-Indian for anterior and 32-Indian for posterior, and they were brought out through a stab wound and secured at the skin edge with 0 silk sutures. Finally, chest wall was closed in layers, ribs with pericostal suture of [id number] #1 PDS, the fascia with continuous 2-0 Vicryl, serratus anterior muscle fascia with 2-0 Vicryl, subcutaneous fascia with continuous 2-0 and then skin with skin gary. Right lower lobe was wiped out using Estimated blood loss was approximately 200 mL. Sponge, needle and instrument counts were correct. On-Q catheter was inserted along the right paravertebral space for the pain control. Ty Lowe, MD [facility] # [id number] JAMES
[2018-12-07] MEDS: HYDROmorphone 1 mg/ml ISec IVP PRN ×6 (02:37→18:17)
[2018-12-07] MEDS: Lactated Ringer's 1,000 ML IV SCH (02:59)
--- NOTE | 2018-12-07 04:17 | PN ---
DATE: 12/06/2018 ENDOCRINOLOGY FOLLOWUP NOTE LOCATION: ICU room 17. SUBJECTIVE: This is a 68-year-old female, transferred here because of persistent right lower lobe pleural effusion with supervening hemothorax and underwent a chest tube insertion and drainage and has now been followed closely for hemodynamic monitoring. She has also been followed for metabolic management of recent glycemic fluctuation as noted thereof. Her glucose values have ranged from 212 to 142 and 309 mg/dL. LABORATORY DATA: Her chemistry showed a BUN of 19, sodium 132, potassium 4, chloride 101, CO2 of 27, glucose 154, creatinine 1. ASSESSMENT AND PLAN: So at this time, we will modify her basal and bolus insulin regimen as ordered. We will increase the NovoLog to 12 units three times a day before meals to start today as ordered. We will also increase basal insulin to Lantus given as 34 units subcutaneous at bedtime daily to start tonight. We will obtain serial chemistries and supplement accordingly as needed. We will follow. Elly Hannah MD
[2018-12-07 06:10] LABS: BASO % 0.3 % (0.0-2.0); EOS % 0.2 % (0.0-4.0); HEMOGLOBIN 8.5 g/dL (11.0-16.0); LYMPH # 0.4 K/uL (1.0-4.3); LYMPH % 4.1 % (20.0-40.0); MEAN CELL VOLUME 94.3 fL (81.0-99.0); MEAN CORPUSCULAR HEMOGLOBIN 30.7 pg (27.0-31.0); MEAN CORPUSCULAR HGB CONC 32.5 g/dL (33.0-37.0); MEAN PLATELET VOLUME 9.3 fL (7.2-11.7); MONO # 2.9 K/uL (0.0-0.8); MONO % 28.8 % (0.0-10.0); NEUT # 6.6 K/uL (1.8-7.0); NEUT % 66.6 % (50.0-75.0); NRBC % 0.1 % (0.0-2.0); PLATELET COUNT 169 K/uL (130-400); RBC 2.76 Mil/uL (3.80-5.20); RED CELL DISTRIBUTION WIDTH 14.7 % (11.5-14.5); WHITE BLOOD COUNT 9.9 K/uL (4.8-10.8)
[2018-12-07 06:33] LABS: ALB/GLOB RATIO 0.8 (1.0-2.1); ALBUMIN 2.3 g/dL (3.5-5.0); ALT/SGPT 17 U/L (9-52); AST/SGOT 20 U/L (14-36); BLOOD UREA NITROGEN 20 mg/dL (7-17); CALCIUM 8.6 mg/dl (8.6-10.4); GFR NON-AFRICAN AMERICAN 55
[2018-12-07] MEDS: metroNIDAZOLE IV 500 mg/100 ml 500 MG/100 ML BAG IVPB SCH ×3 (06:37→22:13)
--- NOTE | 2018-12-07 07:47 | CP.PCM.PN ---
Subjective - Date & Time of Evaluation Date of Evaluation: 12/07/18 Time of Evaluation: 07:46 - Subjective Subjective: Surgery Note for Dr. Edwards 68F seen and evaluated at bedside this morning. No acute events overnight. Pain is well controlled. Denies f/c, n/v/d, SOB, CP, or urinary symptoms. Objective - Vital Signs/Intake and Output Vital Signs (last 24 hours): Temp Pulse Resp BP Pulse Ox 98.7 F 104 H 18 183/84 H 95 12/07/18 04:00 12/07/18 04:00 12/07/18 04:00 12/07/18 04:00 12/07/18 04:00 Intake and Output: 12/07/18 12/07/18 06:59 18:59 Intake Total 2910 Output Total 1100 Balance 1810 - Medications Medications: Current Medications Acetaminophen (Tylenol 325mg Tab) 975 mg PO Q8 [facility] Last Admin: 12/07/18 05:42 Dose: 975 mg Amlodipine Besylate (Norvasc) 5 mg PO DAILY [facility] Last Admin: 12/07/18 05:43 Dose: 5 mg Bupropion HCl (Wellbutrin) 200 mg PO DAILY [facility] Last Admin: 12/06/18 10:53 Dose: 200 mg Dextrose (Glutose 15) 0 gm PO ONCE PRN; Protocol PRN Reason: Hypoglycemia Protocol Diphenhydramine HCl (Benadryl) 25 mg PO TID [facility] Last Admin: 12/06/18 17:25 Dose: Not Given Docusate Sodium (Colace) 100 mg PO BID [facility] Last Admin: 12/06/18 17:25 Dose: 100 mg Glucagon (Glucagen Diagnostic Kit) 0 mg IM STAT PRN; Protocol PRN Reason: Hypoglycemia Protocol Guaifenesin/Dextromethorphan (Robitussin Dm) 5 ml PO Q4H PRN PRN Reason: Cough Last Admin: 12/06/18 08:43 Dose: 5 ml Heparin Sodium (Porcine) (Heparin) 5,000 units SC Q12H [facility] Last Admin: 12/07/18 05:45 Dose: 5,000 units Hydromorphone HCl (Dilaudid) 1 mg IVP Q3H PRN PRN Reason: Pain, severe (8-10) Last Admin: 12/07/18 05:44 Dose: 1 mg Vancomycin/Sodium Chloride (Vancomycin 1 Gm/Ns 200 Ml) 1 gm in 200 mls @ 133.333 mls/hr IVPB Q12H [facility]; Protocol Last Admin: 12/07/18 01:16 Dose: 133.333 mls/hr Ciprofloxacin (Cipro 400mg/200ml Dsw) 400 mg in 200 mls @ 133 mls/hr IVPB Q12H [facility]; Protocol Last Admin: 12/06/18 20:26 Dose: 133 mls/hr BUPIVACAINE 0.125%/0.9% NACL (Bupivacaine-Ns 0.125% On-Q Spareribs Trimmer) 600 mls @ 4 mls/hr IJ ONCE ONE Stop: 12/10/18 17:49 Lactated Ringer's (Lactated Ringer's) 1,000 mls @ 150 mls/hr IV .Q6H40M [facility] Last Admin: 12/07/18 02:59 Dose: 150 mls/hr Dextrose (Dextrose 5% In Water 1000 Ml) 1,000 mls @ 0 mls/hr IV .Q0M PRN; Protocol PRN Reason: Hypoglycemia Protocol Metronidazole (Flagyl) 500 mg in 100 mls @ 100 mls/hr IVPB Q8H [facility]; Protocol Last Admin: 12/07/18 06:37 Dose: 100 mls/hr Insulin Aspart (Novolog) 0 unit SC ACHS [facility]; Protocol Last Admin: 12/06/18 21:44 Dose: Not Given Insulin Aspart (Novolog) 12 unit SC AC [facility] Insulin Glargine (Lantus) 34 unit SC HS [facility] Last Admin: 12/06/18 22:38 Dose: 34 u Isosorbide Mononitrate (Imdur Er) 30 mg PO DAILY [facility] Last Admin: 12/06/18 16:31 Dose: 30 mg Metoprolol Tartrate (Lopressor) 50 mg PO DAILY [facility] Last Admin: 12/07/18 05:43 Dose: 50 mg Ondansetron HCl (Zofran Inj) 4 mg IVP Q4H PRN PRN Reason: Nausea/Vomiting Last Admin: 12/05/18 05:01 Dose: 4 mg Topiramate (Topamax) 100 mg PO TID [facility] Last Admin: 12/06/18 17:26 Dose: 100 mg - Labs Labs: 12/07/18 06:07 12/07/18 06:05 PT 11.9 SECONDS (9.7-12.2) 12/03/18 10:54 INR 1.1 12/03/18 10:54 APTT 25 SECONDS (21-34) 12/03/18 10:54 - Constitutional Appears: Non-toxic, No Acute Distress - Head Exam Head Exam: ATRAUMATIC, NORMAL INSPECTION, NORMOCEPHALIC - Eye Exam Eye Exam: EOMI - ENT Exam ENT Exam: Mucous Membranes Moist - Respiratory Exam Respiratory Exam: Chest Wall Tenderness. absent: Accessory Muscle Use, Respiratory Distress - Cardiovascular Exam Cardiovascular Exam: REGULAR RHYTHM. absent: Tachycardia - GI/Abdominal Exam GI & Abdominal Exam: Soft, Normal Bowel Sounds. absent: Tenderness - Neurological Exam Neurological Exam: Alert, Awake - Skin Skin Exam: Dry, Intact, Normal Color, Warm Assessment and Plan - Assessment and Plan (Free Text) Assessment: 68F s/p open thoracotomy with decortication of right lung w/ chest tube placement x2 POD3 Plan: Chest tube to suction Monitor chest tube output Pain control and antiemetics PRN AM labs Daily CXR Encourage OOBTC Physical Therapy D/w Dr. Grace Giron PGY1
[2018-12-07] MEDS: (Novolog) Insulin Aspart, Recombinant 100 u/ml 10 ml vial SC SCH ×7 (08:14→22:01)
[2018-12-07] MEDS: Ciprofloxacin 400mg/200ml D5W 400 MG/200 ML BAG IVPB SCH ×2 (08:15→20:38)
[2018-12-07 08:29] LABS: BANDS 4 % (0-2); LYMPHOCYTE 6 % (20-40); MONOCYTE 29 % (0-10); NEUTROPHIL 61 % (50-75); PLATELET ESTIMATE NORMAL (NORMAL); TOTAL CELLS COUNTED 100
[2018-12-07 08:30] LABS: ANISOCYTOSIS SLIGHT; HYPOCHROMIC SLIGHT; POIKILOCYTOSIS SLIGHT
--- NOTE | 2018-12-07 10:46 | RAD ---
Chest x-ray single frontal view HISTORY: Chest tube placement. COMPARISON: 12/06/2018 Findings: Two chest tube projecting to the right lung apex. Small loculated right pleural effusion. Small left pleural effusion. Confluent consolidative changes throughout the right lung and at the left lung base. Biapical pleural thickening with lobe granulomatous changes. Cardiomegaly. Atherosclerotic calcification at the aortic knob. Degenerative changes in the spine and shoulders. Impression: Two chest tube projecting to the right lung apex. Small loculated right pleural effusion. Small left pleural effusion. Confluent consolidative changes throughout the right lung and at the left lung base. Biapical pleural thickening with lobe granulomatous changes. Cardiomegaly. Atherosclerotic calcification at the aortic knob.
--- NOTE | 2018-12-07 11:22 | CP.PCM.PN ---
Subjective - Date & Time of Evaluation Date of Evaluation: 12/07/18 Time of Evaluation: 11:22 - Subjective Subjective: afebrile, c/o a net the site of the chest tubes. Chest tube draining serosanguineous drainage. SEEN BY SURGERY CHEST TUBE IN GOOD SUCTION. LABS/RADIOLOGY REVIEWED. wbc 9.9. .pLEURAL FLUID 12/04/18 -VE GROWTH FOR 24 HOURS .pLEURAL FLUID TISSUE 12/04/18 NEGATIVE GROWTH TO DATE .pLEURAL FLUID AFB-VE TO DATE .pLEURAL FLUID FUNGAL-NEGATIVE FOR FUNGAL ELEMENTS. CXR; CONSOLIDATIVE CHANGES BOTH LUNGS CONSISTENT WITH DECORTICATION.SMALL LEFT PLEURAL EFFUSION. TWO CHEST TUBE IN POSITION RT. LUNG Objective - Vital Signs/Intake and Output Vital Signs (last 24 hours): Temp Pulse Resp BP Pulse Ox 97.9 F 89 12 171/67 H 99 12/07/18 08:00 12/07/18 08:00 12/07/18 08:00 12/07/18 08:00 12/07/18 08:00 Intake and Output: 12/07/18 12/07/18 06:59 18:59 Intake Total 2910 Output Total 1100 Balance 1810 - Medications Medications: Current Medications Acetaminophen (Tylenol 325mg Tab) 975 mg PO Q8 [facility] Last Admin: 12/07/18 05:42 Dose: 975 mg Amlodipine Besylate (Norvasc) 5 mg PO DAILY [facility] Last Admin: 12/07/18 09:00 Dose: 5 mg Bupropion HCl (Wellbutrin) 200 mg PO DAILY [facility] Last Admin: 12/07/18 09:00 Dose: 200 mg Dextrose (Glutose 15) 0 gm PO ONCE PRN; Protocol PRN Reason: Hypoglycemia Protocol Diphenhydramine HCl (Benadryl) 25 mg PO TID [facility] Last Admin: 12/07/18 09:00 Dose: 25 mg Docusate Sodium (Colace) 100 mg PO BID [facility] Last Admin: 12/07/18 09:00 Dose: 100 mg Glucagon (Glucagen Diagnostic Kit) 0 mg IM STAT PRN; Protocol PRN Reason: Hypoglycemia Protocol Guaifenesin/Dextromethorphan (Robitussin Dm) 5 ml PO Q4H PRN PRN Reason: Cough Last Admin: 12/06/18 08:43 Dose: 5 ml Heparin Sodium (Porcine) (Heparin) 5,000 units SC Q12H [facility] Last Admin: 12/07/18 05:45 Dose: 5,000 units Hydromorphone HCl (Dilaudid) 1 mg IVP Q3H PRN PRN Reason: Pain, severe (8-10) Last Admin: 12/07/18 09:01 Dose: 1 mg Vancomycin/Sodium Chloride (Vancomycin 1 Gm/Ns 200 Ml) 1 gm in 200 mls @ 133.333 mls/hr IVPB Q12H [facility]; Protocol Last Admin: 12/07/18 01:16 Dose: 133.333 mls/hr Ciprofloxacin (Cipro 400mg/200ml Dsw) 400 mg in 200 mls @ 133 mls/hr IVPB Q12H [facility]; Protocol Last Admin: 12/07/18 08:15 Dose: 133 mls/hr BUPIVACAINE 0.125%/0.9% NACL (Bupivacaine-Ns 0.125% On-Q Bail Bond Agent) 600 mls @ 4 mls/hr IJ ONCE ONE Stop: 12/10/18 17:49 Dextrose (Dextrose 5% In Water 1000 Ml) 1,000 mls @ 0 mls/hr IV .Q0M PRN; Protocol PRN Reason: Hypoglycemia Protocol Metronidazole (Flagyl) 500 mg in 100 mls @ 100 mls/hr IVPB Q8H [facility]; Protocol Last Admin: 12/07/18 06:37 Dose: 100 mls/hr Insulin Aspart (Novolog) 0 unit SC ACHS [facility]; Protocol Last Admin: 12/07/18 08:14 Dose: 4 units Insulin Aspart (Novolog) 12 unit SC AC [facility] Last Admin: 12/07/18 08:14 Dose: 12 units Insulin Glargine (Lantus) 34 unit SC HS [facility] Last Admin: 12/06/18 22:38 Dose: 34 u Isosorbide Mononitrate (Imdur Er) 30 mg PO DAILY [facility] Last Admin: 12/07/18 09:04 Dose: 30 mg Metoprolol Tartrate (Lopressor) 50 mg PO DAILY [facility] Last Admin: 12/07/18 09:00 Dose: 50 mg Ondansetron HCl (Zofran Inj) 4 mg IVP Q4H PRN PRN Reason: Nausea/Vomiting Last Admin: 12/05/18 05:01 Dose: 4 mg Topiramate (Topamax) 100 mg PO TID [facility] Last Admin: 12/07/18 09:00 Dose: 100 mg - Labs Labs: 12/07/18 06:07 12/07/18 06:05 PT 11.9 SECONDS (9.7-12.2) 12/03/18 10:54 INR 1.1 12/03/18 10:54 APTT 25 SECONDS (21-34) 12/03/18 10:54 - Constitutional Appears: No Acute Distress - Head Exam Head Exam: NORMAL INSPECTION - ENT Exam ENT Exam: Normal Oropharynx - Neck Exam Neck Exam: Normal Inspection - Respiratory Exam Respiratory Exam: Decreased Breath Sounds, NORMAL BREATHING PATTERN - Cardiovascular Exam Cardiovascular Exam: Tachycardia, REGULAR RHYTHM, +S1, +S2 - GI/Abdominal Exam GI & Abdominal Exam: Soft, Normal Bowel Sounds - Extremities Exam Extremities Exam: Normal Capillary Refill. absent: Calf Tenderness, Pedal Edema - Neurological Exam Neurological Exam: Awake, CN II-XII Intact, Oriented x3, Reflexes Normal - Psychiatric Exam Psychiatric exam: Normal Mood - Skin Skin Exam: Normal Color, Warm Assessment and Plan (1) Empyema Status: Acute (2) Recurrent right pleural effusion Status: Acute (3) Post-thoracotomy pain Status: Acute (4) Sepsis syndrome Status: Acute (5) DKA (diabetic ketoacidoses) Status: Resolved (6) Insulin dependent diabetes mellitus Status: Chronic (7) Hypertension Status: Chronic - Assessment and Plan (Free Text) Plan: CONTINUE CIPRO 400 MG iv PIGGYBACK EVERY 12 HOURLY 11/18/18. CONTINUE IV VANCOMYCIN 1000 MG IVPB Q 12HRLY 11/20 CONTINUE IV FLAGYL 500MG IVPB Q 8HRLY 11/28/18 F/U APPROPRIATE CULTURES -BACTERIAL, AFB, FUNGAL, AND BX/TISSUE FOR HISTOLOGY CT MANAGEMENT PER SURGERY. CASE DISCUSSED WITH STAFF.
--- NOTE | 2018-12-07 13:54 | CP.PCM.PN ---
Subjective - Date & Time of Evaluation Date of Evaluation: 12/07/18 Time of Evaluation: 13:51 - Subjective Subjective: Pt s/e. c/o awaken by nursed too often throughout night. wbc.9.9k cxr-no pneumo. and consistent with decortication. chest tubes-60/170/ss/no air leak. a/p: Satisfactory progress. Continue chest tubes to suction. lab and cxr in am. Objective - Vital Signs/Intake and Output Vital Signs (last 24 hours): Temp Pulse Resp BP Pulse Ox 97.9 F 75 15 140/58 L 96 12/07/18 12:00 12/07/18 12:00 12/07/18 12:00 12/07/18 12:00 12/07/18 12:00 Intake and Output: 12/07/18 12/07/18 06:59 18:59 Intake Total 2910 Output Total 1100 Balance 1810 - Medications Medications: Current Medications Acetaminophen (Tylenol 325mg Tab) 975 mg PO Q8 [facility] Last Admin: 12/07/18 05:42 Dose: 975 mg Amlodipine Besylate (Norvasc) 5 mg PO DAILY [facility] Last Admin: 12/07/18 09:00 Dose: 5 mg Bupropion HCl (Wellbutrin) 200 mg PO DAILY [facility] Last Admin: 12/07/18 09:00 Dose: 200 mg Dextrose (Glutose 15) 0 gm PO ONCE PRN; Protocol PRN Reason: Hypoglycemia Protocol Diphenhydramine HCl (Benadryl) 25 mg PO TID [facility] Last Admin: 12/07/18 09:00 Dose: 25 mg Docusate Sodium (Colace) 100 mg PO BID [facility] Last Admin: 12/07/18 09:00 Dose: 100 mg Glucagon (Glucagen Diagnostic Kit) 0 mg IM STAT PRN; Protocol PRN Reason: Hypoglycemia Protocol Guaifenesin/Dextromethorphan (Robitussin Dm) 5 ml PO Q4H PRN PRN Reason: Cough Last Admin: 12/06/18 08:43 Dose: 5 ml Heparin Sodium (Porcine) (Heparin) 5,000 units SC Q12H [facility] Last Admin: 12/07/18 05:45 Dose: 5,000 units Hydromorphone HCl (Dilaudid) 1 mg IVP Q3H PRN PRN Reason: Pain, severe (8-10) Last Admin: 12/07/18 12:12 Dose: 1 mg Vancomycin/Sodium Chloride (Vancomycin 1 Gm/Ns 200 Ml) 1 gm in 200 mls @ 133.333 mls/hr IVPB Q12H [facility]; Protocol Last Admin: 12/07/18 12:10 Dose: 133.333 mls/hr Ciprofloxacin (Cipro 400mg/200ml Dsw) 400 mg in 200 mls @ 133 mls/hr IVPB Q12H [facility]; Protocol Last Admin: 12/07/18 08:15 Dose: 133 mls/hr BUPIVACAINE 0.125%/0.9% NACL (Bupivacaine-Ns 0.125% On-Q Electrolytic De Scaler) 600 mls @ 4 mls/hr IJ ONCE ONE Stop: 12/10/18 17:49 Dextrose (Dextrose 5% In Water 1000 Ml) 1,000 mls @ 0 mls/hr IV .Q0M PRN; Protocol PRN Reason: Hypoglycemia Protocol Metronidazole (Flagyl) 500 mg in 100 mls @ 100 mls/hr IVPB Q8H [facility]; Protocol Last Admin: 12/07/18 06:37 Dose: 100 mls/hr Insulin Aspart (Novolog) 0 unit SC ACHS [facility]; Protocol Last Admin: 12/07/18 12:10 Dose: 3 units Insulin Aspart (Novolog) 12 unit SC AC [facility] Last Admin: 12/07/18 12:11 Dose: 12 units Insulin Glargine (Lantus) 34 unit SC HS [facility] Last Admin: 12/06/18 22:38 Dose: 34 u Isosorbide Mononitrate (Imdur Er) 30 mg PO DAILY [facility] Last Admin: 12/07/18 09:04 Dose: 30 mg Metoprolol Tartrate (Lopressor) 50 mg PO DAILY [facility] Last Admin: 12/07/18 09:00 Dose: 50 mg Ondansetron HCl (Zofran Inj) 4 mg IVP Q4H PRN PRN Reason: Nausea/Vomiting Last Admin: 12/05/18 05:01 Dose: 4 mg Topiramate (Topamax) 100 mg PO TID [facility] Last Admin: 12/07/18 09:00 Dose: 100 mg - Labs Labs: 12/07/18 06:07 12/07/18 06:05 PT 11.9 SECONDS (9.7-12.2) 12/03/18 10:54 INR 1.1 12/03/18 10:54 APTT 25 SECONDS (21-34) 12/03/18 10:54
--- NOTE | 2018-12-07 21:55 | CP.PCM.PN ---
Subjective - Date & Time of Evaluation Date of Evaluation: 12/07/18 Time of Evaluation: 17:30 - Subjective Subjective: Patient still complaining of pain at the chest tubes insertion sites. Afebrile, BP slightly elavated. Appetite fair. Objective - Vital Signs/Intake and Output Vital Signs (last 24 hours): Temp Pulse Resp BP Pulse Ox 98.4 F 86 20 127/61 97 12/07/18 17:17 12/07/18 17:17 12/07/18 17:17 12/07/18 17:17 12/07/18 17:17 Intake and Output: 12/07/18 12/08/18 18:59 06:59 Intake Total 900 Output Total 280 Balance 620 - Medications Medications: Current Medications Acetaminophen (Tylenol 325mg Tab) 975 mg PO Q8 [facility] Last Admin: 12/07/18 15:15 Dose: 975 mg Amlodipine Besylate (Norvasc) 5 mg PO DAILY [facility] Last Admin: 12/07/18 09:00 Dose: 5 mg Bupropion HCl (Wellbutrin) 200 mg PO DAILY [facility] Last Admin: 12/07/18 09:00 Dose: 200 mg Dextrose (Glutose 15) 0 gm PO ONCE PRN; Protocol PRN Reason: Hypoglycemia Protocol Diphenhydramine HCl (Benadryl) 25 mg PO TID [facility] Last Admin: 12/07/18 18:16 Dose: 25 mg Docusate Sodium (Colace) 100 mg PO BID [facility] Last Admin: 12/07/18 20:41 Dose: 100 mg Glucagon (Glucagen Diagnostic Kit) 0 mg IM STAT PRN; Protocol PRN Reason: Hypoglycemia Protocol Guaifenesin/Dextromethorphan (Robitussin Dm) 5 ml PO Q4H PRN PRN Reason: Cough Last Admin: 12/06/18 08:43 Dose: 5 ml Heparin Sodium (Porcine) (Heparin) 5,000 units SC Q12H [facility] Last Admin: 12/07/18 18:16 Dose: 5,000 units Hydromorphone HCl (Dilaudid) 1 mg IVP Q3H PRN PRN Reason: Pain, severe (8-10) Last Admin: 12/07/18 18:17 Dose: 1 mg Vancomycin/Sodium Chloride (Vancomycin 1 Gm/Ns 200 Ml) 1 gm in 200 mls @ 133.333 mls/hr IVPB Q12H [facility]; Protocol Last Admin: 12/07/18 12:10 Dose: 133.333 mls/hr Ciprofloxacin (Cipro 400mg/200ml Dsw) 400 mg in 200 mls @ 133 mls/hr IVPB Q12H [facility]; Protocol Last Admin: 12/07/18 20:38 Dose: 133 mls/hr BUPIVACAINE 0.125%/0.9% NACL (Bupivacaine-Ns 0.125% On-Q [employer]) 600 mls @ 4 mls/hr IJ ONCE ONE Stop: 12/10/18 17:49 Dextrose (Dextrose 5% In Water 1000 Ml) 1,000 mls @ 0 mls/hr IV .Q0M PRN; Protocol PRN Reason: Hypoglycemia Protocol Metronidazole (Flagyl) 500 mg in 100 mls @ 100 mls/hr IVPB Q8H [facility]; Protocol Last Admin: 12/07/18 15:16 Dose: 100 mls/hr Insulin Aspart (Novolog) 0 unit SC ACHS [facility]; Protocol Last Admin: 12/07/18 17:19 Dose: Not Given Insulin Aspart (Novolog) 12 unit SC AC [facility] Last Admin: 12/07/18 18:36 Dose: Not Given Insulin Glargine (Lantus) 34 unit SC HS [facility] Last Admin: 12/06/18 22:38 Dose: 34 u Isosorbide Mononitrate (Imdur Er) 30 mg PO DAILY [facility] Last Admin: 12/07/18 09:04 Dose: 30 mg Metoprolol Tartrate (Lopressor) 50 mg PO DAILY [facility] Last Admin: 12/07/18 09:00 Dose: 50 mg Ondansetron HCl (Zofran Inj) 4 mg IVP Q4H PRN PRN Reason: Nausea/Vomiting Last Admin: 12/05/18 05:01 Dose: 4 mg Topiramate (Topamax) 100 mg PO TID [facility] Last Admin: 12/07/18 18:15 Dose: 100 mg - Labs Labs: 12/07/18 06:07 12/07/18 06:05 PT 11.9 SECONDS (9.7-12.2) 12/03/18 10:54 INR 1.1 12/03/18 10:54 APTT 25 SECONDS (21-34) 12/03/18 10:54 - Constitutional Appears: No Acute Distress, Chronically Ill - Head Exam Head Exam: NORMAL INSPECTION - Eye Exam Eye Exam: Normal appearance - ENT Exam ENT Exam: Normal Exam - Neck Exam Neck Exam: Normal Inspection - Respiratory Exam Respiratory Exam: Rhonchi - Cardiovascular Exam Cardiovascular Exam: Tachycardia - GI/Abdominal Exam GI & Abdominal Exam: Soft, Normal Bowel Sounds - Rectal Exam Rectal Exam: Deferred - Exam Exam: NORMAL INSPECTION - Extremities Exam Extremities Exam: Normal Inspection - Back Exam Back Exam: NORMAL INSPECTION - Neurological Exam Neurological Exam: Alert, Awake, Oriented x3 - Psychiatric Exam Psychiatric exam: Anxious - Skin Skin Exam: Dry, Normal Color Assessment and Plan (1) DKA (diabetic ketoacidoses) Status: Resolved (2) Acute exacerbation of chronic low back pain Status: Chronic (3) Sepsis syndrome Status: Acute (4) Bilateral bronchopneumonia Status: Acute (5) Recurrent right pleural effusion Status: Acute
[2018-12-07] MEDS: (Lantus) Insulin Glargine, Recombinant SC SCH (22:15)
[2018-12-08] MEDS: Vancomycin 1 gm/NS 200 ml 1 GM/200 ML BAG IVPB SCH ×2 (01:05→12:21)
--- NOTE | 2018-12-08 05:24 | PN ---
DATE: 12/07/2018 ENDOCRINOLOGY FOLLOWUP NOTE LOCATION: Transferred to room 553 from ICU. SUBJECTIVE: This is a 68-year-old female with recent uncontrolled type 2 insulin-requiring diabetes, now being followed closely for metabolic management. She had a recent right lower lobe pleural effusion and hemothorax with a chest tube insertion and underwent a decortication and exploratory right thoracotomy which is activation of the effusion as noted thereof. Her glucose values are fluctuating as expected with intercurrent physical stressors as noted. Her glucose levels have ranged from 100 to 113 and 256 mg/dL. LABORATORY DATA: Her chemistry showed a BUN 20, sodium 132, potassium 4, chloride 102, CO2 of 23, glucose 330, and creatinine 1. ASSESSMENT AND PLAN: So at this time, we will continue to modify basal and bolus insulin regimen as ordered with NovoLog given as 12 units three times a day before meals and Lantus given as 34 units subcutaneously at bedtime daily as given. We will titrate incrementally as indicated to optimize metabolic control. We will follow. Elly Hannah MD
[2018-12-08] MEDS: metroNIDAZOLE IV 500 mg/100 ml 500 MG/100 ML BAG IVPB SCH ×3 (06:27→22:22)
--- NOTE | 2018-12-08 07:31 | PN ---
DATE: 12/07/2018 LOCATION: ICU Room 17. SUBJECTIVE: This is a 68-year-old female with recent uncontrolled type 2 insulin-requiring diabetes, now being followed closely for metabolic management. Her glycemic levels are fluctuating but improved and the glucose levels have ranged from 142 to 209 mg/dL. Her chemistry showed a BUN of 20, sodium 132, potassium 4, chloride 102, CO2 of 23, glucose 330 and creatinine 1. She is being followed closely for hemodynamic monitoring here in the ICU because of the recent development of a right lower lobe pleural effusion with hemothorax and currently has a chest tube in place and draining as noted. We will modify her current basal and bolus insulin regimen and increase the NovoLog to 12 units t.i.d. before meals to start today as ordered. We will continue the higher dose of the basal insulin with Lantus to be given as 34 units subcu at bedtime daily as given. We will titrate incremental as indicated to optimize metabolic control. We will follow. Elly Hannah MD
[2018-12-08] MEDS: HYDROmorphone 1 mg/ml ISec IVP PRN ×3 (07:48→14:08)
[2018-12-08] MEDS: (Novolog) Insulin Aspart, Recombinant 100 u/ml 10 ml vial SC SCH ×7 (08:02→22:16)
--- NOTE | 2018-12-08 10:04 | CP.PCM.PN ---
Subjective - Date & Time of Evaluation Date of Evaluation: 12/08/18 Time of Evaluation: 08:00 - Subjective Subjective: Surgery: Dr. Edwards Pt seen and examined. No acute overnight events. States she feels ok but continues to have incisional pain as well as pain at chest tube insertion sites. Continues to have a cough. Tolerating diet, denies fevers/chills, chest pain or SOB. Objective - Vital Signs/Intake and Output Vital Signs (last 24 hours): Temp Pulse Resp BP Pulse Ox 98.2 F 95 H 20 152/78 H 99 12/08/18 08:00 12/08/18 08:00 12/08/18 08:00 12/08/18 08:00 12/08/18 08:00 Intake and Output: 12/08/18 12/08/18 06:59 18:59 Intake Total 1010 Output Total 810 Balance 200 - Medications Medications: Current Medications Acetaminophen (Tylenol 325mg Tab) 975 mg PO Q8 [facility] Last Admin: 12/08/18 05:28 Dose: 975 mg Amlodipine Besylate (Norvasc) 5 mg PO DAILY [facility] Last Admin: 12/07/18 09:00 Dose: 5 mg Bupropion HCl (Wellbutrin) 200 mg PO DAILY [facility] Last Admin: 12/07/18 09:00 Dose: 200 mg Dextrose (Glutose 15) 0 gm PO ONCE PRN; Protocol PRN Reason: Hypoglycemia Protocol Diphenhydramine HCl (Benadryl) 25 mg PO TID [facility] Last Admin: 12/07/18 18:16 Dose: 25 mg Docusate Sodium (Colace) 100 mg PO BID [facility] Last Admin: 12/07/18 20:41 Dose: 100 mg Glucagon (Glucagen Diagnostic Kit) 0 mg IM STAT PRN; Protocol PRN Reason: Hypoglycemia Protocol Guaifenesin/Dextromethorphan (Robitussin Dm) 5 ml PO Q4H PRN PRN Reason: Cough Last Admin: 12/06/18 08:43 Dose: 5 ml Heparin Sodium (Porcine) (Heparin) 5,000 units SC Q12H [facility] Last Admin: 12/08/18 05:31 Dose: 5,000 units Hydromorphone HCl (Dilaudid) 1 mg IVP Q3H PRN PRN Reason: Pain, severe (8-10) Last Admin: 12/08/18 07:48 Dose: 1 mg Vancomycin/Sodium Chloride (Vancomycin 1 Gm/Ns 200 Ml) 1 gm in 200 mls @ 133.333 mls/hr IVPB Q12H [facility]; Protocol Last Admin: 12/08/18 01:05 Dose: 133.333 mls/hr Ciprofloxacin (Cipro 400mg/200ml Dsw) 400 mg in 200 mls @ 133 mls/hr IVPB Q12H [facility]; Protocol Last Admin: 12/07/18 20:38 Dose: 133 mls/hr BUPIVACAINE 0.125%/0.9% NACL (Bupivacaine-Ns 0.125% On-Q [employer]) 600 mls @ 4 mls/hr IJ ONCE ONE Stop: 12/10/18 17:49 Dextrose (Dextrose 5% In Water 1000 Ml) 1,000 mls @ 0 mls/hr IV .Q0M PRN; Protocol PRN Reason: Hypoglycemia Protocol Metronidazole (Flagyl) 500 mg in 100 mls @ 100 mls/hr IVPB Q8H [facility]; Protocol Last Admin: 12/08/18 06:27 Dose: 100 mls/hr Insulin Aspart (Novolog) 0 unit SC ACHS [facility]; Protocol Last Admin: 12/08/18 08:02 Dose: Not Given Insulin Aspart (Novolog) 12 unit SC AC [facility] Last Admin: 12/07/18 18:36 Dose: Not Given Insulin Glargine (Lantus) 34 unit SC HS [facility] Last Admin: 12/07/18 22:15 Dose: 34 u Isosorbide Mononitrate (Imdur Er) 30 mg PO DAILY [facility] Last Admin: 12/07/18 09:04 Dose: 30 mg Ketorolac Tromethamine (Toradol) 30 mg IVP Q6 [facility] Metoprolol Tartrate (Lopressor) 50 mg PO DAILY [facility] Last Admin: 12/07/18 09:00 Dose: 50 mg Ondansetron HCl (Zofran Inj) 4 mg IVP Q4H PRN PRN Reason: Nausea/Vomiting Last Admin: 12/05/18 05:01 Dose: 4 mg Topiramate (Topamax) 100 mg PO TID [facility] Last Admin: 12/07/18 18:15 Dose: 100 mg - Labs Labs: 12/07/18 06:07 12/07/18 06:05 PT 11.9 SECONDS (9.7-12.2) 12/03/18 10:54 INR 1.1 12/03/18 10:54 APTT 25 SECONDS (21-34) 12/03/18 10:54 - Constitutional Appears: Well, No Acute Distress - Head Exam Head Exam: ATRAUMATIC, NORMOCEPHALIC - Eye Exam Eye Exam: Normal appearance - ENT Exam ENT Exam: Mucous Membranes Moist - Respiratory Exam Respiratory Exam: Rales, NORMAL BREATHING PATTERN Additional comments: chest tubes x 2 on the R on suction with minimal output; dressings clean/dry - Cardiovascular Exam Cardiovascular Exam: RRR - GI/Abdominal Exam GI & Abdominal Exam: Distended, Soft, Rebound. absent: Tenderness - Neurological Exam Neurological Exam: Alert, Awake, Oriented x3 - Skin Skin Exam: Dry, Warm Assessment and Plan - Assessment and Plan (Free Text) Assessment: 68F s/p R thoracotomy with chest tubes x 2; on suction for empyema; POD#4 Plan: - cont CTs on suction - daily CXR - encourage coughing & incentive spirometry - encourage ambulation with PT - DVT PPx - d/w Dr. Grace Dean
[2018-12-08 11:35] LABS: BASO % 0.4 % (0.0-2.0); EOS % 0.3 % (0.0-4.0); HEMOGLOBIN 8.3 g/dL (11.0-16.0); LYMPH # 0.5 K/uL (1.0-4.3); LYMPH % 6.8 % (20.0-40.0); MEAN CELL VOLUME 94.8 fL (81.0-99.0); MEAN CORPUSCULAR HGB CONC 32.7 g/dL (33.0-37.0); MEAN PLATELET VOLUME 9.3 fL (7.2-11.7); MONO # 2.3 K/uL (0.0-0.8); MONO % 31.4 % (0.0-10.0); NEUT # 4.5 K/uL (1.8-7.0); NEUT % 61.1 % (50.0-75.0); PLATELET COUNT 172 K/uL (130-400); RBC 2.69 Mil/uL (3.80-5.20); RED CELL DISTRIBUTION WIDTH 14.5 % (11.5-14.5); WHITE BLOOD COUNT 7.3 K/uL (4.8-10.8)
[2018-12-08 12:04] LABS: ALB/GLOB RATIO 0.7 (1.0-2.1); ALBUMIN 2.2 g/dL (3.5-5.0); ALT/SGPT 19 U/L (9-52); AST/SGOT 32 U/L (14-36); BLOOD UREA NITROGEN 17 mg/dL (7-17); CALCIUM 8.6 mg/dl (8.6-10.4); GFR NON-AFRICAN AMERICAN 55
[2018-12-08 12:07] LABS: ANISOCYTOSIS SLIGHT; EOSINOPHIL 1 % (0-4); LYMPHOCYTE 8 % (20-40); MONOCYTE 38 % (0-10); NEUTROPHIL 53 % (50-75); PLATELET ESTIMATE NORMAL (NORMAL); POIKILOCYTOSIS SLIGHT; TOTAL CELLS COUNTED 100
[2018-12-08 12:08] LABS: BURR CELLS SLIGHT; HYPOCHROMIC SLIGHT; TARGET CELLS SLIGHT
--- NOTE | 2018-12-08 12:19 | RAD ---
Date of service: 12/08/2018 HISTORY: Chest tube x2 COMPARISON: December 07, 2018. FINDINGS: LUNGS: Stable consolidative changes bilaterally. PLEURA: 2 chest tubes remain in the right pleural space unchanged. Residual right pleural effusion and small left pleural effusion. CARDIOVASCULAR: Cardiomegaly. Atherosclerotic calcifications identified primarily aortic arch. OSSEOUS STRUCTURES: No significant abnormalities. VISUALIZED UPPER ABDOMEN: Normal. OTHER FINDINGS: None. IMPRESSION: Stable position of chest tubes in the right pleural space. Stable findings with respect to pulmonary parenchyma, pleura and heart. Overall no significant interval change.
--- NOTE | 2018-12-08 13:56 | CP.PCM.PN ---
Subjective - Date & Time of Evaluation Date of Evaluation: 12/08/18 Time of Evaluation: 13:52 - Subjective Subjective: Pt s/e. wbc-7.3k chest tubes-60/ss/no airl leak. a/p: Doing well. Continue current care. Lab and cxr in am. Objective - Vital Signs/Intake and Output Vital Signs (last 24 hours): Temp Pulse Resp BP Pulse Ox 98.2 F 95 H 20 152/78 H 99 12/08/18 08:00 12/08/18 08:00 12/08/18 08:00 12/08/18 08:00 12/08/18 08:00 Intake and Output: 12/08/18 12/08/18 06:59 18:59 Intake Total 1010 Output Total 810 Balance 200 - Medications Medications: Current Medications Acetaminophen (Tylenol 325mg Tab) 975 mg PO Q8 [facility] Last Admin: 12/08/18 05:28 Dose: 975 mg Amlodipine Besylate (Norvasc) 5 mg PO DAILY [facility] Last Admin: 12/08/18 09:59 Dose: 5 mg Bupropion HCl (Wellbutrin) 200 mg PO DAILY [facility] Last Admin: 12/08/18 10:01 Dose: 200 mg Dextrose (Glutose 15) 0 gm PO ONCE PRN; Protocol PRN Reason: Hypoglycemia Protocol Diphenhydramine HCl (Benadryl) 25 mg PO TID [facility] Last Admin: 12/08/18 09:59 Dose: 25 mg Docusate Sodium (Colace) 100 mg PO BID [facility] Last Admin: 12/08/18 09:59 Dose: 100 mg Glucagon (Glucagen Diagnostic Kit) 0 mg IM STAT PRN; Protocol PRN Reason: Hypoglycemia Protocol Guaifenesin/Dextromethorphan (Robitussin Dm) 5 ml PO Q4H PRN PRN Reason: Cough Last Admin: 12/06/18 08:43 Dose: 5 ml Heparin Sodium (Porcine) (Heparin) 5,000 units SC Q12H [facility] Last Admin: 12/08/18 05:31 Dose: 5,000 units Hydromorphone HCl (Dilaudid) 1 mg IVP Q3H PRN PRN Reason: Pain, severe (8-10) Last Admin: 12/08/18 10:54 Dose: 1 mg Vancomycin/Sodium Chloride (Vancomycin 1 Gm/Ns 200 Ml) 1 gm in 200 mls @ 133.333 mls/hr IVPB Q12H [facility]; Protocol Last Admin: 12/08/18 12:21 Dose: 133.333 mls/hr Ciprofloxacin (Cipro 400mg/200ml Dsw) 400 mg in 200 mls @ 133 mls/hr IVPB Q12H [facility]; Protocol Last Admin: 12/07/18 20:38 Dose: 133 mls/hr BUPIVACAINE 0.125%/0.9% NACL (Bupivacaine-Ns 0.125% On-Q [employer]) 600 mls @ 4 mls/hr IJ ONCE ONE Stop: 12/10/18 17:49 Metronidazole (Flagyl) 500 mg in 100 mls @ 100 mls/hr IVPB Q8H [facility]; Protocol Last Admin: 12/08/18 06:27 Dose: 100 mls/hr Insulin Aspart (Novolog) 0 unit SC ACHS [facility]; Protocol Last Admin: 12/08/18 12:10 Dose: Not Given Insulin Aspart (Novolog) 12 unit SC AC [facility] Last Admin: 12/08/18 12:10 Dose: Not Given Insulin Glargine (Lantus) 34 unit SC HS [facility] Last Admin: 12/07/18 22:15 Dose: 34 u Isosorbide Mononitrate (Imdur Er) 30 mg PO DAILY [facility] Last Admin: 12/08/18 09:59 Dose: 30 mg Ketorolac Tromethamine (Toradol) 30 mg IVP Q6 [facility] Last Admin: 12/08/18 12:21 Dose: 30 mg Metoprolol Tartrate (Lopressor) 50 mg PO DAILY [facility] Last Admin: 12/08/18 09:59 Dose: 50 mg Ondansetron HCl (Zofran Inj) 4 mg IVP Q4H PRN PRN Reason: Nausea/Vomiting Last Admin: 12/05/18 05:01 Dose: 4 mg Topiramate (Topamax) 100 mg PO TID [facility] Last Admin: 12/08/18 10:00 Dose: 100 mg - Labs Labs: 12/08/18 11:28 12/08/18 11:28 PT 11.9 SECONDS (9.7-12.2) 12/03/18 10:54 INR 1.1 12/03/18 10:54 APTT 25 SECONDS (21-34) 12/03/18 10:54
[2018-12-08] MEDS: Ciprofloxacin 400mg/200ml D5W 400 MG/200 ML BAG IVPB SCH ×2 (14:06→20:54)
[2018-12-08] MEDS ORDERED: Bisacodyl 5mg EC Tab PO ONE (19:08)
--- NOTE | 2018-12-08 20:05 | CP.PCM.PN ---
Subjective - Date & Time of Evaluation Date of Evaluation: 12/08/18 Time of Evaluation: 20:05 - Subjective Subjective: afebrile, c/o dry cough states unable to bring out phlegm c/o pain at the site of the chest tubes. Chest tube draining serosanguineous drainage. SEEN BY SURGERY CHEST TUBE IN GOOD SUCTION. LABS/RADIOLOGY REVIEWED. wbc 9.9. .pLEURAL FLUID 12/04/18 -VE GROWTH FOR 24 HOURS .pLEURAL FLUID TISSUE 12/04/18 NEGATIVE GROWTH TO DATE .pLEURAL FLUID [employer]-VE TO DATE .pLEURAL FLUID FUNGAL-NEGATIVE FOR FUNGAL ELEMENTS. CXR; CONSOLIDATIVE CHANGES BOTH LUNGS CONSISTENT WITH DECORTICATION.SMALL LEFT PLEURAL EFFUSION. TWO CHEST TUBE IN POSITION RT. LUNG Objective - Vital Signs/Intake and Output Vital Signs (last 24 hours): Temp Pulse Resp BP Pulse Ox 97.8 F 79 20 114/61 95 12/08/18 16:09 12/08/18 16:09 12/08/18 16:09 12/08/18 16:09 12/08/18 16:09 Intake and Output: 12/08/18 12/09/18 18:59 06:59 Intake Total 850 Output Total 410 Balance 440 - Medications Medications: Current Medications Acetaminophen (Tylenol 325mg Tab) 975 mg PO Q8 [facility] Last Admin: 12/08/18 14:04 Dose: 975 mg Amlodipine Besylate (Norvasc) 5 mg PO DAILY [facility] Last Admin: 12/08/18 09:59 Dose: 5 mg Bupropion HCl (Wellbutrin) 200 mg PO DAILY [facility] Last Admin: 12/08/18 10:01 Dose: 200 mg Dextrose (Glutose 15) 0 gm PO ONCE PRN; Protocol PRN Reason: Hypoglycemia Protocol Diphenhydramine HCl (Benadryl) 25 mg PO TID [facility] Last Admin: 12/08/18 18:28 Dose: 25 mg Docusate Sodium (Colace) 100 mg PO BID [facility] Last Admin: 12/08/18 18:28 Dose: 100 mg Glucagon (Glucagen Diagnostic Kit) 0 mg IM STAT PRN; Protocol PRN Reason: Hypoglycemia Protocol Guaifenesin/Dextromethorphan (Robitussin Dm) 5 ml PO Q4H PRN PRN Reason: Cough Last Admin: 12/06/18 08:43 Dose: 5 ml Heparin Sodium (Porcine) (Heparin) 5,000 units SC Q8 [facility] Hydromorphone HCl (Dilaudid) 1 mg IVP Q3H PRN PRN Reason: Pain, severe (8-10) Last Admin: 12/08/18 14:08 Dose: 1 mg Vancomycin/Sodium Chloride (Vancomycin 1 Gm/Ns 200 Ml) 1 gm in 200 mls @ 133.333 mls/hr IVPB Q12H [facility]; Protocol Last Admin: 12/08/18 12:21 Dose: 133.333 mls/hr Ciprofloxacin (Cipro 400mg/200ml Dsw) 400 mg in 200 mls @ 133 mls/hr IVPB Q12H [facility]; Protocol Last Admin: 12/08/18 14:06 Dose: 133 mls/hr BUPIVACAINE 0.125%/0.9% NACL (Bupivacaine-Ns 0.125% On-Q [employer]) 600 mls @ 4 mls/hr IJ ONCE ONE Stop: 12/10/18 17:49 Metronidazole (Flagyl) 500 mg in 100 mls @ 100 mls/hr IVPB Q8H [facility]; Protocol Last Admin: 12/08/18 14:04 Dose: 100 mls/hr Insulin Aspart (Novolog) 0 unit SC ACHS [facility]; Protocol Last Admin: 12/08/18 17:33 Dose: Not Given Insulin Aspart (Novolog) 12 unit SC AC [facility] Last Admin: 12/08/18 17:33 Dose: Not Given Insulin Glargine (Lantus) 34 unit SC HS [facility] Last Admin: 12/07/18 22:15 Dose: 34 u Isosorbide Mononitrate (Imdur Er) 30 mg PO DAILY [facility] Last Admin: 12/08/18 09:59 Dose: 30 mg Ketorolac Tromethamine (Toradol) 30 mg IVP Q6 [facility] Last Admin: 12/08/18 18:27 Dose: 30 mg Metoprolol Tartrate (Lopressor) 50 mg PO DAILY [facility] Last Admin: 12/08/18 09:59 Dose: 50 mg Ondansetron HCl (Zofran Inj) 4 mg IVP Q4H PRN PRN Reason: Nausea/Vomiting Last Admin: 12/05/18 05:01 Dose: 4 mg Topiramate (Topamax) 100 mg PO TID [facility] Last Admin: 12/08/18 18:28 Dose: 100 mg - Labs Labs: 12/08/18 11:28 12/08/18 11:28 PT 11.9 SECONDS (9.7-12.2) 12/03/18 10:54 INR 1.1 12/03/18 10:54 APTT 25 SECONDS (21-34) 12/03/18 10:54 - Constitutional Appears: No Acute Distress - Head Exam Head Exam: NORMAL INSPECTION - Eye Exam Eye Exam: EOMI, PERRL - ENT Exam ENT Exam: Normal Oropharynx - Neck Exam Neck Exam: Normal Inspection - Respiratory Exam Respiratory Exam: Decreased Breath Sounds - Cardiovascular Exam Cardiovascular Exam: REGULAR RHYTHM, +S1, +S2 - GI/Abdominal Exam GI & Abdominal Exam: Soft, Normal Bowel Sounds - Extremities Exam Extremities Exam: Normal Capillary Refill, Pedal Edema. absent: Calf Tenderness - Neurological Exam Neurological Exam: Awake, CN II-XII Intact, Oriented x3 - Psychiatric Exam Psychiatric exam: Normal Mood - Skin Skin Exam: Normal Color, Warm Assessment and Plan (1) Empyema Status: Acute (2) Recurrent right pleural effusion Status: Acute (3) Post-thoracotomy pain Status: Acute (4) Sepsis syndrome Status: Acute (5) DKA (diabetic ketoacidoses) Status: Resolved (6) Insulin dependent diabetes mellitus Status: Chronic (7) Hypertension Status: Chronic - Assessment and Plan (Free Text) Plan: CONTINUE CIPRO 400 MG iv PIGGYBACK EVERY 12 HOURLY 11/18/18. CONTINUE IV VANCOMYCIN 1000 MG IVPB Q 12HRLY 11/20 CONTINUE IV FLAGYL 500MG IVPB Q 8HRLY 11/28/18 Chest tubes MANAGEMENT PER SURGERY. f/u cxr in am CASE DISCUSSED WITH STAFF.
[2018-12-08] MEDS: guaiFENesin DM 100 mg-10 mg/5 ml UD PO PRN (22:15)
[2018-12-08] MEDS: (Lantus) Insulin Glargine, Recombinant SC SCH (22:17)
--- NOTE | 2018-12-08 23:19 | CP.PCM.PN ---
Subjective - Date & Time of Evaluation Date of Evaluation: 12/08/18 Time of Evaluation: 18:00 - Subjective Subjective: Patient still with a productive cough, constipation and pain at the chest tube insertion sites. Afebrile. Objective - Vital Signs/Intake and Output Vital Signs (last 24 hours): Temp Pulse Resp BP Pulse Ox 97.8 F 79 20 114/61 95 12/08/18 16:09 12/08/18 16:09 12/08/18 16:09 12/08/18 16:09 12/08/18 16:09 Intake and Output: 12/08/18 12/09/18 18:59 06:59 Intake Total 850 800 Output Total 410 20 Balance 440 780 - Medications Medications: Current Medications Acetaminophen (Tylenol 325mg Tab) 975 mg PO Q8 [facility] Last Admin: 12/08/18 22:15 Dose: 975 mg Amlodipine Besylate (Norvasc) 5 mg PO DAILY [facility] Last Admin: 12/08/18 09:59 Dose: 5 mg Bupropion HCl (Wellbutrin) 200 mg PO DAILY [facility] Last Admin: 12/08/18 10:01 Dose: 200 mg Dextrose (Glutose 15) 0 gm PO ONCE PRN; Protocol PRN Reason: Hypoglycemia Protocol Diphenhydramine HCl (Benadryl) 25 mg PO TID [facility] Last Admin: 12/08/18 18:28 Dose: 25 mg Docusate Sodium (Colace) 100 mg PO BID [facility] Last Admin: 12/08/18 18:28 Dose: 100 mg Glucagon (Glucagen Diagnostic Kit) 0 mg IM STAT PRN; Protocol PRN Reason: Hypoglycemia Protocol Guaifenesin/Dextromethorphan (Robitussin Dm) 5 ml PO Q4H PRN PRN Reason: Cough Last Admin: 12/08/18 22:15 Dose: 5 ml Heparin Sodium (Porcine) (Heparin) 5,000 units SC Q8 [facility] Last Admin: 12/08/18 22:15 Dose: 5,000 units Hydromorphone HCl (Dilaudid) 1 mg IVP Q3H PRN PRN Reason: Pain, severe (8-10) Last Admin: 12/08/18 14:08 Dose: 1 mg Vancomycin/Sodium Chloride (Vancomycin 1 Gm/Ns 200 Ml) 1 gm in 200 mls @ 133.333 mls/hr IVPB Q12H [facility]; Protocol Last Admin: 12/08/18 12:21 Dose: 133.333 mls/hr Ciprofloxacin (Cipro 400mg/200ml Dsw) 400 mg in 200 mls @ 133 mls/hr IVPB Q12H [facility]; Protocol Last Admin: 12/08/18 20:54 Dose: 133 mls/hr BUPIVACAINE 0.125%/0.9% NACL (Bupivacaine-Ns 0.125% On-Q Breast Splitter) 600 mls @ 4 mls/hr IJ ONCE ONE Stop: 12/10/18 17:49 Metronidazole (Flagyl) 500 mg in 100 mls @ 100 mls/hr IVPB Q8H [facility]; Protocol Last Admin: 12/08/18 22:22 Dose: 100 mls/hr Insulin Aspart (Novolog) 0 unit SC ACHS [facility]; Protocol Last Admin: 12/08/18 22:16 Dose: Not Given Insulin Aspart (Novolog) 12 unit SC AC [facility] Last Admin: 12/08/18 17:33 Dose: Not Given Insulin Glargine (Lantus) 34 unit SC HS [facility] Last Admin: 12/08/18 22:17 Dose: Not Given Isosorbide Mononitrate (Imdur Er) 30 mg PO DAILY [facility] Last Admin: 12/08/18 09:59 Dose: 30 mg Ketorolac Tromethamine (Toradol) 30 mg IVP Q6 [facility] Last Admin: 12/08/18 18:27 Dose: 30 mg Metoprolol Tartrate (Lopressor) 50 mg PO DAILY [facility] Last Admin: 12/08/18 09:59 Dose: 50 mg Ondansetron HCl (Zofran Inj) 4 mg IVP Q4H PRN PRN Reason: Nausea/Vomiting Last Admin: 12/05/18 05:01 Dose: 4 mg Topiramate (Topamax) 100 mg PO TID [facility] Last Admin: 12/08/18 18:28 Dose: 100 mg - Labs Labs: 12/08/18 11:28 12/08/18 11:28 PT 11.9 SECONDS (9.7-12.2) 12/03/18 10:54 INR 1.1 12/03/18 10:54 APTT 25 SECONDS (21-34) 12/03/18 10:54 - Head Exam Head Exam: NORMAL INSPECTION - Eye Exam Eye Exam: Normal appearance - ENT Exam ENT Exam: Normal Exam - Neck Exam Neck Exam: Normal Inspection - Respiratory Exam Respiratory Exam: Rhonchi - Cardiovascular Exam Cardiovascular Exam: REGULAR RHYTHM - GI/Abdominal Exam GI & Abdominal Exam: Soft - Extremities Exam Extremities Exam: Normal Inspection - Back Exam Back Exam: NORMAL INSPECTION - Neurological Exam Neurological Exam: Alert, Awake, Oriented x3 - Psychiatric Exam Psychiatric exam: Anxious - Skin Skin Exam: Dry, Normal Color, Warm Assessment and Plan (1) DKA (diabetic ketoacidoses) Status: Resolved (2) Acute exacerbation of chronic low back pain Status: Chronic (3) Sepsis syndrome Status: Acute (4) Bilateral bronchopneumonia Status: Acute (5) Recurrent right pleural effusion Status: Acute - Assessment and Plan (Free Text) Assessment: S/p right thoracotomy, chest tube insertion, decortication and drainage of right hematoma and empyema.
[2018-12-09] MEDS: Vancomycin 1 gm/NS 200 ml 1 GM/200 ML BAG IVPB SCH ×2 (01:08→13:48)
[2018-12-09] MEDS: metroNIDAZOLE IV 500 mg/100 ml 500 MG/100 ML BAG IVPB SCH ×3 (06:44→23:57)
[2018-12-09] MEDS: (Novolog) Insulin Aspart, Recombinant 100 u/ml 10 ml vial SC SCH ×7 (09:29→19:25)
[2018-12-09] MEDS: guaiFENesin DM 100 mg-10 mg/5 ml UD PO PRN ×2 (09:40→19:21)
[2018-12-09] MEDS: Ciprofloxacin 400mg/200ml D5W 400 MG/200 ML BAG IVPB SCH ×2 (09:53→21:37)
--- NOTE | 2018-12-09 11:20 | RAD ---
Chest x-ray single frontal view HISTORY: Chest tube. Comparison: 12/08/2018 Findings: Two right chest tubes in stable position. Persistent small loculated right pleural effusion. Right hilar prominence with consolidative changes in the right infrahilar region. Persistent consolidative opacities in the right mid to lower lung zone as well as the left lung base. Persistent scattered nodularity in both lung maya. Cardiomegaly. Atherosclerotic calcification at the aortic knob. Degenerative changes in the spine and shoulders. Impression: Two right chest tubes in stable position. Persistent small loculated right pleural effusion. Right hilar prominence with consolidative changes in the right infrahilar region. Persistent consolidative opacities in the right mid to lower lung zone as well as the left lung base. Persistent scattered nodularity in both lung maya. Cardiomegaly. Atherosclerotic calcification at the aortic knob.
--- NOTE | 2018-12-09 11:41 | CP.PCM.PN ---
Subjective - Date & Time of Evaluation Date of Evaluation: 12/09/18 Time of Evaluation: 11:41 - Subjective Subjective: afebrile c/o dry cough and incisional site pain +ve dressings in place . drainage decreasing. SURGERY F/U NOTED. LABS REVIEWED; CXR 12/09/[address] IN STABLE POSITION +VE PERSISTANT RT. LOCULATED PL EFFUSION.' (see full report ) ALL CULTURES -VE TO DATE Objective - Vital Signs/Intake and Output Vital Signs (last 24 hours): Temp Pulse Resp BP Pulse Ox 98.9 F 98 H 20 160/84 H 96 12/09/18 09:23 12/09/18 09:23 12/09/18 09:23 12/09/18 09:23 12/09/18 09:23 Intake and Output: 12/09/18 12/09/18 06:59 18:59 Intake Total 800 Output Total 20 30 Balance 780 -30 - Medications Medications: Current Medications Acetaminophen (Tylenol 325mg Tab) 975 mg PO Q8 [facility] Last Admin: 12/09/18 06:41 Dose: 975 mg Amlodipine Besylate (Norvasc) 5 mg PO DAILY [facility] Last Admin: 12/09/18 09:40 Dose: 5 mg Bupropion HCl (Wellbutrin) 200 mg PO DAILY [facility] Last Admin: 12/09/18 09:40 Dose: 200 mg Dextrose (Glutose 15) 0 gm PO ONCE PRN; Protocol PRN Reason: Hypoglycemia Protocol Diphenhydramine HCl (Benadryl) 25 mg PO TID [facility] Last Admin: 12/09/18 09:40 Dose: 25 mg Docusate Sodium (Colace) 100 mg PO BID [facility] Last Admin: 12/09/18 09:40 Dose: 100 mg Glucagon (Glucagen Diagnostic Kit) 0 mg IM STAT PRN; Protocol PRN Reason: Hypoglycemia Protocol Guaifenesin/Dextromethorphan (Robitussin Dm) 5 ml PO Q4H PRN PRN Reason: Cough Last Admin: 12/09/18 09:40 Dose: 5 ml Heparin Sodium (Porcine) (Heparin) 5,000 units SC Q8 [facility] Last Admin: 12/09/18 06:43 Dose: 5,000 units Hydromorphone HCl (Dilaudid) 1 mg IVP Q3H PRN PRN Reason: Pain, severe (8-10) Last Admin: 12/08/18 14:08 Dose: 1 mg Vancomycin/Sodium Chloride (Vancomycin 1 Gm/Ns 200 Ml) 1 gm in 200 mls @ 133.333 mls/hr IVPB Q12H [facility]; Protocol Last Admin: 12/09/18 01:08 Dose: 133.333 mls/hr Ciprofloxacin (Cipro 400mg/200ml Dsw) 400 mg in 200 mls @ 133 mls/hr IVPB Q12H [facility]; Protocol Last Admin: 12/09/18 09:53 Dose: 133 mls/hr BUPIVACAINE 0.125%/0.9% NACL (Bupivacaine-Ns 0.125% On-Q Export Freight Clerk) 600 mls @ 4 mls/hr IJ ONCE ONE Stop: 12/10/18 17:49 Metronidazole (Flagyl) 500 mg in 100 mls @ 100 mls/hr IVPB Q8H [facility]; Protocol Last Admin: 12/09/18 06:44 Dose: 100 mls/hr Insulin Aspart (Novolog) 0 unit SC ACHS [facility]; Protocol Last Admin: 12/09/18 09:29 Dose: 1 units Insulin Aspart (Novolog) 12 unit SC AC [facility] Last Admin: 12/09/18 09:30 Dose: 12 units Insulin Glargine (Lantus) 34 unit SC HS [facility] Last Admin: 12/08/18 22:17 Dose: Not Given Isosorbide Mononitrate (Imdur Er) 30 mg PO DAILY [facility] Last Admin: 12/09/18 09:40 Dose: 30 mg Ketorolac Tromethamine (Toradol) 30 mg IVP Q6 [facility] Last Admin: 12/09/18 06:43 Dose: 30 mg Metoprolol Tartrate (Lopressor) 50 mg PO DAILY [facility] Last Admin: 12/09/18 09:40 Dose: 50 mg Ondansetron HCl (Zofran Inj) 4 mg IVP Q4H PRN PRN Reason: Nausea/Vomiting Last Admin: 12/05/18 05:01 Dose: 4 mg Topiramate (Topamax) 100 mg PO TID [facility] Last Admin: 12/09/18 09:40 Dose: 100 mg - Labs Labs: 12/08/18 11:28 12/08/18 11:28 PT 11.9 SECONDS (9.7-12.2) 12/03/18 10:54 INR 1.1 12/03/18 10:54 APTT 25 SECONDS (21-34) 12/03/18 10:54 - Constitutional Appears: No Acute Distress - Head Exam Head Exam: NORMAL INSPECTION - Eye Exam Eye Exam: EOMI, Normal appearance, PERRL. absent: Scleral icterus - ENT Exam ENT Exam: Normal Oropharynx - Neck Exam Neck Exam: Normal Inspection - Respiratory Exam Respiratory Exam: Decreased Breath Sounds, NORMAL BREATHING PATTERN Additional comments: RT SIDE. RHONCHI LT SIDE - Cardiovascular Exam Cardiovascular Exam: REGULAR RHYTHM, +S1, +S2 - GI/Abdominal Exam GI & Abdominal Exam: Soft, Normal Bowel Sounds - Extremities Exam Extremities Exam: Normal Capillary Refill. absent: Calf Tenderness, Pedal Edema - Neurological Exam Neurological Exam: Awake, CN II-XII Intact, Oriented x3, Reflexes Normal - Psychiatric Exam Psychiatric exam: Normal Mood - Skin Skin Exam: Normal Color, Warm Assessment and Plan (1) Empyema Status: Acute (2) Recurrent right pleural effusion Status: Acute (3) Post-thoracotomy pain Status: Acute (4) Sepsis syndrome Status: Acute (5) DKA (diabetic ketoacidoses) Status: Resolved (6) Insulin dependent diabetes mellitus Status: Chronic (7) Hypertension Status: Chronic - Assessment and Plan (Free Text) Plan: CONTINUE CIPRO 400 MG iv PIGGYBACK EVERY 12 HOURLY 11/18/18. CONTINUE IV VANCOMYCIN 1000 MG IVPB Q 12HRLY 11/20 CONTINUE IV FLAGYL 500MG IVPB Q 8HRLY 11/28/18 Chest tubes MANAGEMENT PER SURGERY. f/u cxr in am PER CT-SURGERY.
--- NOTE | 2018-12-09 11:41 | CP.PCM.PN ---
Subjective - Date & Time of Evaluation Date of Evaluation: 12/09/18 Time of Evaluation: 11:38 - Subjective Subjective: Surgery: Dr. Edwards Pt seen and examined. No acute overnight events. Pt states she feels better overall but continues to have some discomfort around surgical incision. Continues to have cough. Denies any SOB. Pt is tolerating her diet and getting out of bed to chair. Denies fevers/chills. Objective - Vital Signs/Intake and Output Vital Signs (last 24 hours): Temp Pulse Resp BP Pulse Ox 98.9 F 98 H 20 160/84 H 96 12/09/18 09:23 12/09/18 09:23 12/09/18 09:23 12/09/18 09:23 12/09/18 09:23 Intake and Output: 12/09/18 12/09/18 06:59 18:59 Intake Total 800 Output Total 20 30 Balance 780 -30 - Medications Medications: Current Medications Acetaminophen (Tylenol 325mg Tab) 975 mg PO Q8 [facility] Last Admin: 12/09/18 06:41 Dose: 975 mg Amlodipine Besylate (Norvasc) 5 mg PO DAILY [facility] Last Admin: 12/09/18 09:40 Dose: 5 mg Bupropion HCl (Wellbutrin) 200 mg PO DAILY [facility] Last Admin: 12/09/18 09:40 Dose: 200 mg Dextrose (Glutose 15) 0 gm PO ONCE PRN; Protocol PRN Reason: Hypoglycemia Protocol Diphenhydramine HCl (Benadryl) 25 mg PO TID [facility] Last Admin: 12/09/18 09:40 Dose: 25 mg Docusate Sodium (Colace) 100 mg PO BID [facility] Last Admin: 12/09/18 09:40 Dose: 100 mg Glucagon (Glucagen Diagnostic Kit) 0 mg IM STAT PRN; Protocol PRN Reason: Hypoglycemia Protocol Guaifenesin/Dextromethorphan (Robitussin Dm) 5 ml PO Q4H PRN PRN Reason: Cough Last Admin: 12/09/18 09:40 Dose: 5 ml Heparin Sodium (Porcine) (Heparin) 5,000 units SC Q8 [facility] Last Admin: 12/09/18 06:43 Dose: 5,000 units Hydromorphone HCl (Dilaudid) 1 mg IVP Q3H PRN PRN Reason: Pain, severe (8-10) Last Admin: 12/08/18 14:08 Dose: 1 mg Vancomycin/Sodium Chloride (Vancomycin 1 Gm/Ns 200 Ml) 1 gm in 200 mls @ 133.333 mls/hr IVPB Q12H [facility]; Protocol Last Admin: 12/09/18 01:08 Dose: 133.333 mls/hr Ciprofloxacin (Cipro 400mg/200ml Dsw) 400 mg in 200 mls @ 133 mls/hr IVPB Q12H [facility]; Protocol Last Admin: 12/09/18 09:53 Dose: 133 mls/hr BUPIVACAINE 0.125%/0.9% NACL (Bupivacaine-Ns 0.125% On-Q Washer Cutter) 600 mls @ 4 mls/hr IJ ONCE ONE Stop: 12/10/18 17:49 Metronidazole (Flagyl) 500 mg in 100 mls @ 100 mls/hr IVPB Q8H [facility]; Protocol Last Admin: 12/09/18 06:44 Dose: 100 mls/hr Insulin Aspart (Novolog) 0 unit SC ACHS [facility]; Protocol Last Admin: 12/09/18 09:29 Dose: 1 units Insulin Aspart (Novolog) 12 unit SC AC [facility] Last Admin: 12/09/18 09:30 Dose: 12 units Insulin Glargine (Lantus) 34 unit SC HS [facility] Last Admin: 12/08/18 22:17 Dose: Not Given Isosorbide Mononitrate (Imdur Er) 30 mg PO DAILY [facility] Last Admin: 12/09/18 09:40 Dose: 30 mg Ketorolac Tromethamine (Toradol) 30 mg IVP Q6 [facility] Last Admin: 12/09/18 06:43 Dose: 30 mg Metoprolol Tartrate (Lopressor) 50 mg PO DAILY [facility] Last Admin: 12/09/18 09:40 Dose: 50 mg Ondansetron HCl (Zofran Inj) 4 mg IVP Q4H PRN PRN Reason: Nausea/Vomiting Last Admin: 12/05/18 05:01 Dose: 4 mg Topiramate (Topamax) 100 mg PO TID [facility] Last Admin: 12/09/18 09:40 Dose: 100 mg - Labs Labs: 12/08/18 11:28 12/08/18 11:28 PT 11.9 SECONDS (9.7-12.2) 12/03/18 10:54 INR 1.1 12/03/18 10:54 APTT 25 SECONDS (21-34) 12/03/18 10:54 - Constitutional Appears: Well, No Acute Distress - Head Exam Head Exam: ATRAUMATIC, NORMOCEPHALIC - Eye Exam Eye Exam: Normal appearance - ENT Exam ENT Exam: Mucous Membranes Moist - Respiratory Exam Respiratory Exam: NORMAL BREATHING PATTERN Additional comments: CT x [address] on the R, no air leak; dressing C/D/I. thoracotomy incision with gary, clean/dry - Cardiovascular Exam Cardiovascular Exam: RRR - GI/Abdominal Exam GI & Abdominal Exam: Soft. absent: Tenderness - Extremities Exam Extremities Exam: absent: Tenderness - Neurological Exam Neurological Exam: Alert, Awake, Oriented x3 - Skin Skin Exam: Dry, Warm Assessment and Plan - Assessment and Plan (Free Text) Assessment: 68F s/p R thoracotomy with decortication for retained hemothorax/empyema; POD#5 Plan: - will remove anterior CT today - if output in posterior CT remains low; will remove tomorrow. Cont on suction in the meantime - daily CXR - cont incentive spirometry and encourage ambulation - d/w Dr. Grace Dean
[2018-12-09 11:53] LABS: RED CELL DISTRIBUTION WIDTH 14.5 % (11.5-14.5)
[2018-12-09 11:58] LABS: BLOOD UREA NITROGEN 19 mg/dL (7-17); CALCIUM 8.4 mg/dl (8.6-10.4); GFR NON-AFRICAN AMERICAN 55; HEMOGLOBIN 8.6 g/dL (11.0-16.0); MEAN CORPUSCULAR HGB CONC 32.9 g/dL (33.0-37.0); RBC 2.77 Mil/uL (3.80-5.20); WHITE BLOOD COUNT 7.4 K/uL (4.8-10.8)
[2018-12-09] MEDS ORDERED: HYDROmorphone 1 mg/ml ISec IVP PRN (12:30)
--- NOTE | 2018-12-09 21:15 | CP.PCM.PN ---
Subjective - Date & Time of Evaluation Date of Evaluation: 12/09/18 Time of Evaluation: 21:13 - Subjective Subjective: Patient SOB, edematous. Lungs auscultation reveals rales in both lungs. Will order Lasix 40 mg IV stat. Objective - Vital Signs/Intake and Output Vital Signs (last 24 hours): Temp Pulse Resp BP Pulse Ox 98.1 F 98 H 18 166/77 H 98 12/09/18 15:00 12/09/18 15:00 12/09/18 15:00 12/09/18 15:00 12/09/18 15:00 Intake and Output: 12/09/18 12/10/18 18:59 06:59 Intake Total 680 Output Total 50 Balance 630 - Medications Medications: Current Medications Acetaminophen (Tylenol 325mg Tab) 975 mg PO Q8 [facility] Last Admin: 12/09/18 16:33 Dose: 975 mg Amlodipine Besylate (Norvasc) 5 mg PO DAILY [facility] Last Admin: 12/09/18 09:40 Dose: 5 mg Bupropion HCl (Wellbutrin) 200 mg PO DAILY [facility] Last Admin: 12/09/18 09:40 Dose: 200 mg Dextrose (Glutose 15) 0 gm PO ONCE PRN; Protocol PRN Reason: Hypoglycemia Protocol Diphenhydramine HCl (Benadryl) 25 mg PO TID [facility] Last Admin: 12/09/18 19:22 Dose: 25 mg Docusate Sodium (Colace) 100 mg PO BID [facility] Last Admin: 12/09/18 19:22 Dose: 100 mg Furosemide (Lasix) 40 mg IVP STAT [facility] Stop: 12/09/18 21:13 Glucagon (Glucagen Diagnostic Kit) 0 mg IM STAT PRN; Protocol PRN Reason: Hypoglycemia Protocol Guaifenesin/Dextromethorphan (Robitussin Dm) 5 ml PO Q4H PRN PRN Reason: Cough Last Admin: 12/09/18 19:21 Dose: 5 ml Heparin Sodium (Porcine) (Heparin) 5,000 units SC Q8 [facility] Last Admin: 12/09/18 13:47 Dose: 5,000 units Hydromorphone HCl (Dilaudid) 0.5 mg IVP Q4H PRN PRN Reason: Pain, severe (8-10) Vancomycin/Sodium Chloride (Vancomycin 1 Gm/Ns 200 Ml) 1 gm in 200 mls @ 133.333 mls/hr IVPB Q12H [facility]; Protocol Last Admin: 12/09/18 13:48 Dose: 133.333 mls/hr Ciprofloxacin (Cipro 400mg/200ml Dsw) 400 mg in 200 mls @ 133 mls/hr IVPB Q12H [facility]; Protocol Last Admin: 12/09/18 09:53 Dose: 133 mls/hr BUPIVACAINE 0.125%/0.9% NACL (Bupivacaine-Ns 0.125% On-Q Mold Insert Changer) 600 mls @ 4 mls/hr IJ ONCE ONE Stop: 12/10/18 17:49 Metronidazole (Flagyl) 500 mg in 100 mls @ 100 mls/hr IVPB Q8H [facility]; Protocol Last Admin: 12/09/18 15:45 Dose: 100 mls/hr Insulin Aspart (Novolog) 0 unit SC ACHS [facility]; Protocol Last Admin: 12/09/18 19:25 Dose: 3 units Insulin Aspart (Novolog) 12 unit SC AC [facility] Last Admin: 12/09/18 19:23 Dose: 12 units Insulin Glargine (Lantus) 34 unit SC HS [facility] Last Admin: 12/08/18 22:17 Dose: Not Given Isosorbide Mononitrate (Imdur Er) 30 mg PO DAILY [facility] Last Admin: 12/09/18 09:40 Dose: 30 mg Ketorolac Tromethamine (Toradol) 30 mg IVP Q6 [facility] Last Admin: 12/09/18 13:47 Dose: 30 mg Metoprolol Tartrate (Lopressor) 50 mg PO DAILY [facility] Last Admin: 12/09/18 09:40 Dose: 50 mg Ondansetron HCl (Zofran Inj) 4 mg IVP Q4H PRN PRN Reason: Nausea/Vomiting Last Admin: 12/05/18 05:01 Dose: 4 mg Topiramate (Topamax) 100 mg PO TID [facility] Last Admin: 12/09/18 19:22 Dose: 100 mg - Labs Labs: 12/09/18 11:34 12/09/18 11:34 PT 11.9 SECONDS (9.7-12.2) 12/03/18 10:54 INR 1.1 12/03/18 10:54 APTT 25 SECONDS (21-34) 12/03/18 10:54 - Constitutional Appears: In Acute Distress, Chronically Ill - Head Exam Head Exam: NORMAL INSPECTION - Eye Exam Eye Exam: Normal appearance - ENT Exam ENT Exam: Normal Exam - Respiratory Exam Respiratory Exam: Rales Additional comments: Rales in both lungs. - GI/Abdominal Exam GI & Abdominal Exam: Soft, Normal Bowel Sounds - Rectal Exam Rectal Exam: Deferred - Exam Exam: NORMAL INSPECTION - Extremities Exam Extremities Exam: Normal Inspection - Back Exam Back Exam: NORMAL INSPECTION - Neurological Exam Neurological Exam: Alert, Awake - Psychiatric Exam Psychiatric exam: Anxious - Skin Skin Exam: Dry, Intact, Normal Color Assessment and Plan (1) DKA (diabetic ketoacidoses) Status: Resolved (2) Acute exacerbation of chronic low back pain Status: Chronic (3) Sepsis syndrome Status: Acute (4) Bilateral bronchopneumonia Status: Acute (5) Recurrent right pleural effusion Status: Acute
--- NOTE | 2018-12-09 22:12 | PN ---
DATE: 12/09/2018 ENDO FOLLOWUP NOTE LOCATION: Room 565. SUBJECTIVE: This is a 68-year-old female with recent uncontrolled type 2 insulin requiring diabetes, now being followed closely for metabolic management. Her glycemic levels are fluctuating but improved, and her glucose values overnight have ranged from 95 to 151 and 190 mg/dL. LABORATORY DATA: Her chemistry shows a BUN of 19, sodium 134, potassium 3.7, chloride 106, CO2 of 23, glucose 187, creatinine 1. So at this time, we will continue to modify baseline and bolus insulin regimen with NovoLog given as 12 units three times daily before meals as ordered. We will continue the Lantus given as 34 units subcutaneous at bedtime daily as given. We will titrate incrementally as indicated to optimize metabolic control. We will follow. Elly Hannah MD
[2018-12-09] MEDS: (Lantus) Insulin Glargine, Recombinant SC SCH (22:36)
[2018-12-10] MEDS: Vancomycin 1 gm/NS 200 ml 1 GM/200 ML BAG IVPB SCH ×2 (01:45→13:54)
[2018-12-10] MEDS: metroNIDAZOLE IV 500 mg/100 ml 500 MG/100 ML BAG IVPB SCH ×3 (06:06→23:00)
[2018-12-10] MEDS: (Novolog) Insulin Aspart, Recombinant 100 u/ml 10 ml vial SC SCH ×6 (08:50→21:44)
[2018-12-10 09:07] LABS: BASO % 0.1 % (0.0-2.0); EOS % 0.1 % (0.0-4.0); HEMOGLOBIN 8.4 g/dL (11.0-16.0); LYMPH # 0.4 K/uL (1.0-4.3); LYMPH % 4.6 % (20.0-40.0); MEAN CORPUSCULAR HEMOGLOBIN 31.2 pg (27.0-31.0); MEAN CORPUSCULAR HGB CONC 33.2 g/dL (33.0-37.0); MONO # 2.3 K/uL (0.0-0.8); MONO % 29.1 % (0.0-10.0); NEUT # 5.1 K/uL (1.8-7.0); NEUT % 66.1 % (50.0-75.0); PLATELET COUNT 155 K/uL (130-400); RBC 2.68 Mil/uL (3.80-5.20); RED CELL DISTRIBUTION WIDTH 14.4 % (11.5-14.5); WHITE BLOOD COUNT 7.8 K/uL (4.8-10.8)
--- NOTE | 2018-12-10 09:37 | RAD ---
Date of service: 12/10/2018 HISTORY: Chest tube x2 COMPARISON: 12/09/2018 FINDINGS: LUNGS: Interval nonvisualization of the more lateral right 2nd chest tube. The more medial right chest tube tip at the right upper lung zone is as before. The basal and blending right inferolateral to superior loculated pleural effusion opacity is similar. The perceived prominence of the right hilum other still present appears left slightly less in the immediate infrahilar region likely in part due to projectional effects and probably some minimal improved aeration here. The left basal subsegmental atelectasis infiltrate persist-appear similar. Left lateral inferior discoid atelectasis and/or [id number] PLEURA: Right pleural effusion with loculation-as referenced above. No definite interval change in its expected extent or severity appreciated. Probable minimal left pleural effusion. No pneumothorax appreciated CARDIOVASCULAR: There is presence of aortic atherosclerotic calcification on x-ray. Cardiomegaly [id number] pulmonary venous congestion suspect. OSSEOUS STRUCTURES: Thoraco lumbar spondylosis. VISUALIZED UPPER ABDOMEN: Normal. OTHER FINDINGS: None. IMPRESSION: Interval removal of the more lateral right 2nd chest tube. The more medial right chest tube tip/position is as above and similar. Similar right infero lateral pleural effusion with loculation. No interval pathology seen at the left lung base as detailed above. Cardiomegaly and mild pulmonary venous congestion findings also similar-appearing
[2018-12-10 09:38] LABS: ALB/GLOB RATIO 0.7 (1.0-2.1); ALBUMIN 2.2 g/dL (3.5-5.0); ALT/SGPT 30 U/L (9-52); AST/SGOT 45 U/L (14-36); BLOOD UREA NITROGEN 18 mg/dL (7-17); CALCIUM 7.8 mg/dl (8.6-10.4); GFR NON-AFRICAN AMERICAN > 60
--- NOTE | 2018-12-10 09:40 | CP.PCM.PN ---
Subjective - Date & Time of Evaluation Date of Evaluation: 12/10/18 Time of Evaluation: 07:00 - Subjective Subjective: CT Surgery: Dr. Edwards Pt seen and examined. No acute overnight events. Anterior chest tube was removed yesterday, pt states she continues to have some pain around chest tube insertion site but denies other complaints at this time. Still with cough but denies SOB. Denies fevers/chills. Objective - Vital Signs/Intake and Output Vital Signs (last 24 hours): Temp Pulse Resp BP Pulse Ox 97.8 F 96 H 20 172/85 H 100 12/10/18 08:09 12/10/18 08:09 12/10/18 08:09 12/10/18 08:09 12/10/18 08:09 Intake and Output: 12/10/18 12/10/18 06:59 18:59 Intake Total 500 Output Total 1970 Balance -1470 - Medications Medications: Current Medications Acetaminophen (Tylenol 325mg Tab) 975 mg PO Q8 [facility] Last Admin: 12/10/18 06:05 Dose: 975 mg Amlodipine Besylate (Norvasc) 5 mg PO DAILY [facility] Last Admin: 12/09/18 09:40 Dose: 5 mg Bupropion HCl (Wellbutrin) 200 mg PO DAILY [facility] Last Admin: 12/09/18 09:40 Dose: 200 mg Dextrose (Glutose 15) 0 gm PO ONCE PRN; Protocol PRN Reason: Hypoglycemia Protocol Diphenhydramine HCl (Benadryl) 25 mg PO TID [facility] Last Admin: 12/09/18 19:22 Dose: 25 mg Docusate Sodium (Colace) 100 mg PO BID [facility] Last Admin: 12/09/18 19:22 Dose: 100 mg Glucagon (Glucagen Diagnostic Kit) 0 mg IM STAT PRN; Protocol PRN Reason: Hypoglycemia Protocol Guaifenesin/Dextromethorphan (Robitussin Dm) 5 ml PO Q4H PRN PRN Reason: Cough Last Admin: 12/09/18 19:21 Dose: 5 ml Heparin Sodium (Porcine) (Heparin) 5,000 units SC Q8 [facility] Last Admin: 12/10/18 05:57 Dose: 5,000 units Hydromorphone HCl (Dilaudid) 0.5 mg IVP Q4H PRN PRN Reason: Pain, severe (8-10) Vancomycin/Sodium Chloride (Vancomycin 1 Gm/Ns 200 Ml) 1 gm in 200 mls @ 133.333 mls/hr IVPB Q12H [facility]; Protocol Last Admin: 12/10/18 01:45 Dose: 133.333 mls/hr Ciprofloxacin (Cipro 400mg/200ml Dsw) 400 mg in 200 mls @ 133 mls/hr IVPB Q12H [facility]; Protocol Last Admin: 12/09/18 21:37 Dose: 133 mls/hr BUPIVACAINE 0.125%/0.9% NACL (Bupivacaine-Ns 0.125% On-Q [employer]) 600 mls @ 4 mls/h r IJ ONCE ONE Stop: 12/10/18 17:49 Metronidazole (Flagyl) 500 mg in 100 mls @ 100 mls/hr IVPB Q8H [facility]; Protocol Last Admin: 12/10/18 06:06 Dose: 100 mls/hr Insulin Aspart (Novolog) 0 unit SC ACHS [facility]; Protocol Last Admin: 12/10/18 08:50 Dose: 3 units Insulin Aspart (Novolog) 12 unit SC AC [facility] Last Admin: 12/10/18 08:50 Dose: 12 units Insulin Glargine (Lantus) 34 unit SC HS [facility] Last Admin: 12/09/18 22:36 Dose: 34 u Isosorbide Mononitrate (Imdur Er) 30 mg PO DAILY [facility] Last Admin: 12/09/18 09:40 Dose: 30 mg Ketorolac Tromethamine (Toradol) 30 mg IVP Q6 [facility] Last Admin: 12/09/18 23:58 Dose: 30 mg Metoprolol Tartrate (Lopressor) 50 mg PO DAILY [facility] Last Admin: 12/09/18 09:40 Dose: 50 mg Ondansetron HCl (Zofran Inj) 4 mg IVP Q4H PRN PRN Reason: Nausea/Vomiting Last Admin: 12/05/18 05:01 Dose: 4 mg Topiramate (Topamax) 100 mg PO TID [facility] Last Admin: 12/09/18 19:22 Dose: 100 mg - Labs Labs: 12/10/18 08:57 12/09/18 11:34 PT 11.9 SECONDS (9.7-12.2) 12/03/18 10:54 INR 1.1 12/03/18 10:54 APTT 25 SECONDS (21-34) 12/03/18 10:54 - Constitutional Appears: Well, No Acute Distress - Head Exam Head Exam: ATRAUMATIC, NORMOCEPHALIC - Eye Exam Eye Exam: Normal appearance - ENT Exam ENT Exam: Mucous Membranes Moist - Respiratory Exam Respiratory Exam: Wheezes (b/l lower lung maya ), NORMAL BREATHING PATTERN Additional comments: thoracotomy incision with gary; C/D/I. Posterior chest tube in place on sucti on; minimal output - Cardiovascular Exam Cardiovascular Exam: RRR - GI/Abdominal Exam GI & Abdominal Exam: Soft. absent: Distended - Extremities Exam Extremities Exam: absent: Tenderness - Neurological Exam Neurological Exam: Alert, Awake, Oriented x3 - Skin Skin Exam: Dry, Warm Assessment and Plan - Assessment and Plan (Free Text) Assessment: 68F s/p R thoracotomy with decortication for retained hemothorax/empyema; POD#6 Plan: - plan to remove posterior chest tube today - f/u post-pull CXR - cont ABX - wean off IV pain meds - encourage PT/Incentive spirometry - d/w Dr. Grace Dean
[2018-12-10] MEDS: Ciprofloxacin 400mg/200ml D5W 400 MG/200 ML BAG IVPB SCH ×2 (09:45→21:10)
[2018-12-10 10:08] LABS: ANISOCYTOSIS SLIGHT; BANDS 3 % (0-2); HYPOCHROMIC SLIGHT; LYMPHOCYTE 7 % (20-40); MONOCYTE 22 % (0-10); MYELOCYTE 1 % (0-0); NEUTROPHIL 67 % (50-75); PLATELET ESTIMATE NORMAL (NORMAL); POIKILOCYTOSIS SLIGHT; TOTAL CELLS COUNTED 100
[2018-12-10 14:06] LABS: GLUCOSE PLEURAL FLUID 101 mg/dL; LDH PLEURAL FLUID 1313 U/L
[2018-12-10] MEDS: Oxycodone/Acetaminophen 5/325 mg Tab PO PRN ×2 (14:19→22:10)
--- NOTE | 2018-12-10 16:14 | RAD ---
HISTORY: post chest tube COMPARISON: Chest x-ray performed 12/10/18 TECHNIQUE: Chest, one view. FINDINGS: LUNGS: Small right pleural effusion with probable laterally loculated component. Bilateral lower lobe consolidations. Linear atelectasis, left lung base. Mild to moderate pulmonary venous congestion. No definite pneumothorax. CARDIOVASCULAR: Cardiomegaly. Atherosclerotic calcifications of the aorta. OSSEOUS STRUCTURES: Degenerative changes. VISUALIZED UPPER ABDOMEN: Unremarkable. OTHER FINDINGS: Surgical skin gary, right chest. IMPRESSION: Small right pleural effusion with probable laterally loculated component. Bilateral lower lobe consolidations. Linear atelectasis, left lung base. Mild to moderate pulmonary venous congestion. Cardiomegaly.
[2018-12-10] MEDS ORDERED: Potassium Chloride 20 mEq ER Tab PO ONE (16:54)
[2018-12-10] MEDS ORDERED: Magnesium Sulfate 1 gm/100 mL D5W IVPB ONE (16:54)
--- NOTE | 2018-12-10 18:04 | CP.PCM.PN ---
Subjective - Date & Time of Evaluation Date of Evaluation: 12/10/18 Time of Evaluation: 18:00 - Subjective Subjective: Patient complaining of SOB and coughing. Afebrile. Chest tubes removed. CXR reveals bilateral basilar consolidation and mild venous congestion. Lower extremities edematous. K+: 3.4 Mg++: 1.5. Will give Lasix 40 mg IV and replace K+ and Mg++. Objective - Vital Signs/Intake and Output Vital Signs (last 24 hours): Temp Pulse Resp BP Pulse Ox 97.6 F 87 20 170/75 H 97 12/10/18 15:00 12/10/18 15:00 12/10/18 15:00 12/10/18 15:00 12/10/18 15:00 Intake and Output: 12/10/18 12/10/18 06:59 18:59 Intake Total 500 450 Output Total 1970 250 Balance -1470 200 - Medications Medications: Current Medications Acetaminophen (Tylenol 325mg Tab) 975 mg PO Q8 [facility] Last Admin: 12/10/18 14:13 Dose: Not Given Amlodipine Besylate (Norvasc) 5 mg PO DAILY [facility] Last Admin: 12/10/18 09:44 Dose: 5 mg Bupropion HCl (Wellbutrin) 200 mg PO DAILY [facility] Last Admin: 12/10/18 09:58 Dose: 200 mg Dextrose (Glutose 15) 0 gm PO ONCE PRN; Protocol PRN Reason: Hypoglycemia Protocol Diphenhydramine HCl (Benadryl) 25 mg PO TID [facility] Last Admin: 12/10/18 17:23 Dose: 25 mg Docusate Sodium (Colace) 100 mg PO BID [facility] Last Admin: 12/10/18 17:23 Dose: 100 mg Glucagon (Glucagen Diagnostic Kit) 0 mg IM STAT PRN; Protocol PRN Reason: Hypoglycemia Protocol Guaifenesin/Dextromethorphan (Robitussin Dm) 5 ml PO Q4H PRN PRN Reason: Cough Last Admin: 12/09/18 19:21 Dose: 5 ml Heparin Sodium (Porcine) (Heparin) 5,000 units SC Q8 [facility] Last Admin: 12/10/18 13:54 Dose: 5,000 units Hydromorphone HCl (Dilaudid) 0.5 mg IVP Q4H PRN PRN Reason: Pain, severe (8-10) Vancomycin/Sodium Chloride (Vancomycin 1 Gm/Ns 200 Ml) 1 gm in 200 mls @ 133.333 mls/hr IVPB Q12H [facility]; Protocol Last Admin: 12/10/18 13:54 Dose: 133.333 mls/hr Ciprofloxacin (Cipro 400mg/200ml Dsw) 400 mg in 200 mls @ 133 mls/hr IVPB Q12H [facility]; Protocol Last Admin: 12/10/18 09:45 Dose: 133 mls/hr Metronidazole (Flagyl) 500 mg in 100 mls @ 100 mls/hr IVPB Q8H [facility]; Protocol Last Admin: 12/10/18 16:58 Dose: 100 mls/hr Insulin Aspart (Novolog) 0 unit SC ACHS [facility]; Protocol Last Admin: 12/10/18 17:24 Dose: 2 units Insulin Aspart (Novolog) 14 unit SC AC [facility] Last Admin: 12/10/18 17:23 Dose: 14 units Insulin Glargine (Lantus) 40 unit SC HS [facility] Isosorbide Mononitrate (Imdur Er) 30 mg PO DAILY [facility] Last Admin: 12/10/18 09:44 Dose: 30 mg Metoprolol Tartrate (Lopressor) 50 mg PO DAILY [facility] Last Admin: 12/10/18 09:44 Dose: 50 mg Ondansetron HCl (Zofran Inj) 4 mg IVP Q4H PRN PRN Reason: Nausea/Vomiting Last Admin: 12/05/18 05:01 Dose: 4 mg Oxycodone/Acetaminophen (Percocet 5/325 Mg Tab) 2 tab PO Q4H PRN PRN Reason: Pain, moderate (4-7) Stop: 12/13/18 13:57 Last Admin: 12/10/18 14:19 Dose: 2 tab Topiramate (Topamax) 100 mg PO TID [facility] Last Admin: 12/10/18 17:22 Dose: 100 mg - Labs Labs: 12/10/18 08:57 12/10/18 08:57 PT 11.9 SECONDS (9.7-12.2) 12/03/18 10:54 INR 1.1 12/03/18 10:54 APTT 25 SECONDS (21-34) 12/03/18 10:54 - Constitutional Appears: No Acute Distress, Chronically Ill - Eye Exam Eye Exam: Normal appearance Pupil Exam: NORMAL ACCOMODATION - ENT Exam ENT Exam: Normal Exam - Neck Exam Neck Exam: Normal Inspection - Respiratory Exam Respiratory Exam: Rales, Rhonchi Additional comments: Rales and rhonchi both bases. - Cardiovascular Exam Cardiovascular Exam: REGULAR RHYTHM - GI/Abdominal Exam GI & Abdominal Exam: Soft, Normal Bowel Sounds - Rectal Exam Rectal Exam: Deferred - Extremities Exam Additional comments: 2+ edema of the lower extremities. No calf tenderness. - Back Exam Back Exam: NORMAL INSPECTION - Neurological Exam Neurological Exam: Alert, Awake, Oriented x3 - Psychiatric Exam Psychiatric exam: Anxious - Skin Skin Exam: Dry, Intact, Normal Color Assessment and Plan (1) DKA (diabetic ketoacidoses) Status: Resolved (2) Acute exacerbation of chronic low back pain Status: Chronic (3) Sepsis syndrome Status: Acute (4) Bilateral bronchopneumonia Status: Acute (5) Recurrent right pleural effusion Assessment & Plan: Chest tubes removed. To continue IV antibiotics as per DR Kenyon Arellano. Status: Acute
[2018-12-10] MEDS ORDERED: Potassium Chloride 10 mEq ER Tab PO ONE (18:07)
[2018-12-10] MEDS: guaiFENesin DM 100 mg-10 mg/5 ml UD PO PRN (18:28)
[2018-12-10] MEDS ORDERED: Magnesium Oxide 400 mg Tab UD PO ONE (18:30)
--- NOTE | 2018-12-10 20:05 | CP.PCM.PN ---
Subjective - Date & Time of Evaluation Date of Evaluation: 12/10/18 Time of Evaluation: 20:05 - Subjective Subjective: AFEBRILE, C/O COUGH, AND CHEST PAIN ON COUGHING. CHEST TUBES REMOVED ON 12/10/18. F/U CHEST X-RAY NOTED 12/10/18 BIBASILAR CONSOLIDATIONS/PLEURAL EFFUSIONS. [id number] VENOUS CONGESTION. Objective - Vital Signs/Intake and Output Vital Signs (last 24 hours): Temp Pulse Resp BP Pulse Ox 97.6 F 87 20 170/80 H 97 12/10/18 15:00 12/10/18 15:00 12/10/18 15:00 12/10/18 18:28 12/10/18 15:00 Intake and Output: 12/10/18 12/11/18 18:59 06:59 Intake Total 450 Output Total 250 Balance 200 - Medications Medications: Current Medications Acetaminophen (Tylenol 325mg Tab) 975 mg PO Q8 [facility] Last Admin: 12/10/18 14:13 Dose: Not Given Amlodipine Besylate (Norvasc) 5 mg PO DAILY [facility] Last Admin: 12/10/18 09:44 Dose: 5 mg Bupropion HCl (Wellbutrin) 200 mg PO DAILY [facility] Last Admin: 12/10/18 09:58 Dose: 200 mg Dextrose (Glutose 15) 0 gm PO ONCE PRN; Protocol PRN Reason: Hypoglycemia Protocol Diphenhydramine HCl (Benadryl) 25 mg PO TID [facility] Last Admin: 12/10/18 17:23 Dose: 25 mg Docusate Sodium (Colace) 100 mg PO BID [facility] Last Admin: 12/10/18 17:23 Dose: 100 mg Glucagon (Glucagen Diagnostic Kit) 0 mg IM STAT PRN; Protocol PRN Reason: Hypoglycemia Protocol Guaifenesin/Dextromethorphan (Robitussin Dm) 5 ml PO Q4H PRN PRN Reason: Cough Last Admin: 12/10/18 18:28 Dose: 5 ml Heparin Sodium (Porcine) (Heparin) 5,000 units SC Q8 [facility] Last Admin: 12/10/18 13:54 Dose: 5,000 units Hydromorphone HCl (Dilaudid) 0.5 mg IVP Q4H PRN PRN Reason: Pain, severe (8-10) Vancomycin/Sodium Chloride (Vancomycin 1 Gm/Ns 200 Ml) 1 gm in 200 mls @ 133.333 mls/hr IVPB Q12H [facility]; Protocol Last Admin: 12/10/18 13:54 Dose: 133.333 mls/hr Ciprofloxacin (Cipro 400mg/200ml Dsw) 400 mg in 200 mls @ 133 mls/hr IVPB Q12H [facility]; Protocol Last Admin: 12/10/18 09:45 Dose: 133 mls/hr Metronidazole (Flagyl) 500 mg in 100 mls @ 100 mls/hr IVPB Q8H [facility]; Protocol Last Admin: 12/10/18 16:58 Dose: 100 mls/hr Insulin Aspart (Novolog) 0 unit SC ACHS [facility]; Protocol Last Admin: 12/10/18 17:24 Dose: 2 units Insulin Aspart (Novolog) 14 unit SC AC [facility] Last Admin: 12/10/18 17:23 Dose: 14 units Insulin Glargine (Lantus) 40 unit SC HS [facility] Isosorbide Mononitrate (Imdur Er) 30 mg PO DAILY [facility] Last Admin: 12/10/18 09:44 Dose: 30 mg Metoprolol Tartrate (Lopressor) 50 mg PO DAILY [facility] Last Admin: 12/10/18 09:44 Dose: 50 mg Ondansetron HCl (Zofran Inj) 4 mg IVP Q4H PRN PRN Reason: Nausea/Vomiting Last Admin: 12/05/18 05:01 Dose: 4 mg Oxycodone/Acetaminophen (Percocet 5/325 Mg Tab) 2 tab PO Q4H PRN PRN Reason: Pain, moderate (4-7) Stop: 12/13/18 13:57 Last Admin: 12/10/18 14:19 Dose: 2 tab Topiramate (Topamax) 100 mg PO TID [facility] Last Admin: 12/10/18 17:22 Dose: 100 mg - Labs Labs: 12/10/18 08:57 12/10/18 08:57 PT 11.9 SECONDS (9.7-12.2) 12/03/18 10:54 INR 1.1 12/03/18 10:54 APTT 25 SECONDS (21-34) 12/03/18 10:54 - Constitutional Appears: No Acute Distress - Head Exam Head Exam: NORMAL INSPECTION - Eye Exam Eye Exam: EOMI, PERRL - ENT Exam ENT Exam: Mucous Membranes Moist, Normal Oropharynx - Neck Exam Neck Exam: Normal Inspection - Respiratory Exam Respiratory Exam: Decreased Breath Sounds, Rales (CHRONIC RALES) Additional comments: CONGESTED AND DYSPNEIC ON TALKING. - Cardiovascular Exam Cardiovascular Exam: Tachycardia, REGULAR RHYTHM, +S1, +S2 - GI/Abdominal Exam GI & Abdominal Exam: Soft, Normal Bowel Sounds - Extremities Exam Extremities Exam: Normal Capillary Refill, Pedal Edema (1+). absent: Calf Tenderness - Neurological Exam Neurological Exam: Alert, Awake, CN II-XII Intact, Oriented x3 - Psychiatric Exam Psychiatric exam: Normal Mood - Skin Skin Exam: Normal Color, Warm Assessment and Plan (1) Empyema Status: Acute (2) Recurrent right pleural effusion Status: Acute (3) Post-thoracotomy pain Status: Acute (4) Sepsis syndrome Status: Acute (5) DKA (diabetic ketoacidoses) Status: Resolved (6) Insulin dependent diabetes mellitus Status: Chronic (7) Hypertension Status: Chronic - Assessment and Plan (Free Text) Plan: CONTINUE CIPRO 400 MG iv PIGGYBACK EVERY 12 HOURLY 11/18/18. CONTINUE IV VANCOMYCIN 1000 MG IVPB Q 12HRLY 11/20 CONTINUE IV FLAGYL 500MG IVPB Q 8HRLY 11/28/18 DIURESIS IS PER pmd/CARDIOLOGY f/u cxr in am PER CT-SURGERY. PATIENT ENCOURAGED TO EAT PATIENT HYPOALBUMINEMIC.
[2018-12-10] MEDS: (Lantus) Insulin Glargine, Recombinant SC SCH (22:09)
[2018-12-11] MEDS: Vancomycin 1 gm/NS 200 ml 1 GM/200 ML BAG IVPB SCH ×2 (00:46→12:20)
[2018-12-11] MEDS: Oxycodone/Acetaminophen 5/325 mg Tab PO PRN ×4 (06:24→21:26)
[2018-12-11] MEDS: metroNIDAZOLE IV 500 mg/100 ml 500 MG/100 ML BAG IVPB SCH ×2 (06:25→14:31)
--- NOTE | 2018-12-11 06:25 | PN ---
DATE: 12/10/2018 ENDOCRINOLOGY FOLLOWUP NOTE LOCATION: Room 565. SUBJECTIVE: This is a 68-year-old female with recent uncontrolled type 2 insulin-requiring diabetes, now being followed closely for metabolic management. Her glycemic levels are more fluctuating overnight as noted with glucose values ranging from 263 to 298 mg/dL. Her fasting glucose was 319 mg/dL, and the rest of the chemistries showed a BUN of 18, sodium 133, potassium 3.4, chloride 104, CO2 of 25, glucose 314, and creatinine 0.9. This is a 68-year-old female with recent right hemothorax and recurrent UTI and is now being followed closely for metabolic management. Her glycemic levels are fluctuating and as mentioned range of 263 to 298 mg/dL. Her chemistries showed a BUN of 18, sodium 133, potassium 3.4, chloride 104, CO2 of 25, and glucose 319, and creatinine 0.9. ASSESSMENT: This is a 68-year-old female with uncontrolled and decompensated type 2 insulin-requiring diabetes with supervening right pleural effusion and subsequent hemothorax and received a chest tube with decortication with subsequent evacuation of the right pleural effusion as noted. Her glycemic levels are fluctuating but improved. The latest glucose levels as mentioned ranged from 263 to 298 mg/dL. Her calcium was reported as low normal with a calcium of 7.8 but also low albumin of 2.2 with a corrected calcium of 9.6 mg/dL. So at this time, we will modify the prandial insulin with Novolog given as 14 units three times a day before meals as ordered. We will also titrate her basal insulin with Lantus to be given higher dose of 14 units subcutaneously at bedtime daily to start tonight. We will continue the low-dose correction scale using Novolog insulin as given. We will follow. Elly Hannah MD
[2018-12-11] MEDS: (Novolog) Insulin Aspart, Recombinant 100 u/ml 10 ml vial SC SCH ×7 (07:50→22:36)
--- NOTE | 2018-12-11 08:03 | CP.PCM.PN ---
Subjective - Date & Time of Evaluation Date of Evaluation: 12/11/18 Time of Evaluation: 07:58 - Subjective Subjective: SURGERY NOTE FOR DR. MARQUES 68F seen and examined at bedside. Patient denies chest pain, denies shortness of breath. Patient did well overnight. Using incentive spirometer. Objective - Vital Signs/Intake and Output Vital Signs (last 24 hours): Temp Pulse Resp BP Pulse Ox 98.2 F 91 H 20 151/78 H 96 12/11/18 00:00 12/11/18 00:00 12/11/18 00:00 12/11/18 00:00 12/11/18 00:00 Intake and Output: 12/11/18 12/11/18 06:59 18:59 Intake Total 540 600 Output Total 1300 300 Balance -760 300 - Medications Medications: Current Medications Acetaminophen (Tylenol 325mg Tab) 975 mg PO Q8 [facility] Last Admin: 12/11/18 06:49 Dose: Not Given Amlodipine Besylate (Norvasc) 5 mg PO DAILY [facility] Last Admin: 12/10/18 09:44 Dose: 5 mg Bupropion HCl (Wellbutrin) 200 mg PO DAILY [facility] Last Admin: 12/10/18 09:58 Dose: 200 mg Dextrose (Glutose 15) 0 gm PO ONCE PRN; Protocol PRN Reason: Hypoglycemia Protocol Diphenhydramine HCl (Benadryl) 25 mg PO TID [facility] Last Admin: 12/10/18 17:23 Dose: 25 mg Docusate Sodium (Colace) 100 mg PO BID [facility] Last Admin: 12/10/18 17:23 Dose: 100 mg Glucagon (Glucagen Diagnostic Kit) 0 mg IM STAT PRN; Protocol PRN Reason: Hypoglycemia Protocol Guaifenesin/Dextromethorphan (Robitussin Dm) 5 ml PO Q4H PRN PRN Reason: Cough Last Admin: 12/10/18 18:28 Dose: 5 ml Heparin Sodium (Porcine) (Heparin) 5,000 units SC Q8 [facility] Last Admin: 12/11/18 06:25 Dose: 5,000 units Hydromorphone HCl (Dilaudid) 0.5 mg IVP Q4H PRN PRN Reason: Pain, severe (8-10) Vancomycin/Sodium Chloride (Vancomycin 1 Gm/Ns 200 Ml) 1 gm in 200 mls @ 133.333 mls/hr IVPB Q12H [facility]; Protocol Last Admin: 12/11/18 00:46 Dose: 133.333 mls/hr Ciprofloxacin (Cipro 400mg/200ml Dsw) 400 mg in 200 mls @ 133 mls/hr IVPB Q12H [facility]; Protocol Last Admin: 12/10/18 21:10 Dose: 133 mls/hr Metronidazole (Flagyl) 500 mg in 100 mls @ 100 mls/hr IVPB Q8H [facility]; Protocol Last Admin: 12/11/18 06:25 Dose: 100 mls/hr Insulin Aspart (Novolog) 0 unit SC ACHS [facility]; Protocol Last Admin: 12/11/18 07:50 Dose: Not Given Insulin Aspart (Novolog) 14 unit SC AC [facility] Last Admin: 12/11/18 07:50 Dose: Not Given Insulin Glargine (Lantus) 40 unit SC HS [facility] Last Admin: 12/10/18 22:09 Dose: 40 units Isosorbide Mononitrate (Imdur Er) 30 mg PO DAILY [facility] Last Admin: 12/10/18 09:44 Dose: 30 mg Metoprolol Tartrate (Lopressor) 50 mg PO DAILY [facility] Last Admin: 12/10/18 09:44 Dose: 50 mg Ondansetron HCl (Zofran Inj) 4 mg IVP Q4H PRN PRN Reason: Nausea/Vomiting Last Admin: 12/05/18 05:01 Dose: 4 mg Oxycodone/Acetaminophen (Percocet 5/325 Mg Tab) 2 tab PO Q4H PRN PRN Reason: Pain, moderate (4-7) Stop: 12/13/18 13:57 Last Admin: 12/11/18 06:24 Dose: 2 tab Topiramate (Topamax) 100 mg PO TID [facility] Last Admin: 12/10/18 17:22 Dose: 100 mg - Labs Labs: 12/10/18 08:57 12/10/18 08:57 PT 11.9 SECONDS (9.7-12.2) 12/03/18 10:54 INR 1.1 12/03/18 10:54 APTT 25 SECONDS (21-34) 12/03/18 10:54 - Constitutional Appears: Non-toxic, No Acute Distress - Respiratory Exam Respiratory Exam: Clear to Ausculation Bilateral, NORMAL BREATHING PATTERN Additional comments: right chest dressing is clean dry intact - Cardiovascular Exam Cardiovascular Exam: REGULAR RHYTHM, +S1, +S2 - GI/Abdominal Exam GI & Abdominal Exam: Soft. absent: Distended, Firm, Guarding, Rigid, Tenderness, Rebound - Extremities Exam Extremities Exam: absent: Pedal Edema, Tenderness - Neurological Exam Neurological Exam: Alert, Awake Assessment and Plan - Assessment and Plan (Free Text) Assessment: 68F s/p thoracotomy with decortication POD#7. S/p chest tube removal yesterday. Plan: - Chest tube dressing monitor - daily chest x-ray - f/u AM labs - OOB/PT Further recs discuss with Dr. Grace Byrnes, PGY3
[2018-12-11] MEDS: Ciprofloxacin 400mg/200ml D5W 400 MG/200 ML BAG IVPB SCH ×2 (08:18→21:27)
[2018-12-11 08:54] LABS: ALB/GLOB RATIO 0.7 (1.0-2.1); ALBUMIN 2.2 g/dL (3.5-5.0); ALT/SGPT 25 U/L (9-52); AST/SGOT 48 U/L (14-36); BLOOD UREA NITROGEN 16 mg/dL (7-17); CALCIUM 7.9 mg/dl (8.6-10.4); GFR NON-AFRICAN AMERICAN 55
[2018-12-11] MEDS: guaiFENesin DM 100 mg-10 mg/5 ml UD PO PRN ×2 (10:29→21:25)
[2018-12-11] MEDS ORDERED: Magnesium Sulfate 1 gm in D5W 1 GM/100 ML BAG IVPB ONE (12:00)
--- NOTE | 2018-12-11 15:48 | RAD ---
HISTORY: s/p chest tube removal COMPARISON: Chest x-ray performed 12/10/18 TECHNIQUE: Chest, one view. FINDINGS: LUNGS: Patchy infiltrates throughout the right mid to lower lobes. Bibasilar consolidations. PLEURA: Moderate right and small left pleural effusions, with probable loculated component on the right. No definite pneumothorax . CARDIOVASCULAR: Cardiomegaly. Ectatic aorta. Dense atherosclerotic calcifications of the aorta. OSSEOUS STRUCTURES: Degenerative changes. VISUALIZED UPPER ABDOMEN: Unremarkable. OTHER FINDINGS: None. IMPRESSION: Patchy infiltrates throughout the right mid to lower lobes. Bibasilar consolidations. Moderate right and small left pleural effusions, with probable loculated component on the right. Cardiomegaly. Ectatic aorta with atherosclerotic calcifications.
--- NOTE | 2018-12-11 17:44 | CP.PCM.PN ---
Subjective - Date & Time of Evaluation Date of Evaluation: 12/11/18 Time of Evaluation: 17:44 - Subjective Subjective: AFEBRILE, NO ACUTE EVENTS OVERNIGHT. STILL HAS COUGH STATES FEELS BETTER AFTER CHEST TUBE REMOVED. EATING POORLY. LABS/RADIOLOGY ALL CULTURES -VE TO DATE. CHEST X-RAY 12/11/18.. Patchy bilateral infiltrates RML/RLL. BIBASILAR CONSOLIDATIONS ? MODERATE RIGHT AND SMALL LEFT PLEURAL EFFUSION,?LOCULATED COMPONENT RIGHT SIDE Objective - Vital Signs/Intake and Output Vital Signs (last 24 hours): Temp Pulse Resp BP Pulse Ox 97.2 F L 96 H 20 158/71 H 98 12/11/18 08:16 12/11/18 10:25 12/11/18 08:16 12/11/18 10:25 12/11/18 08:16 Intake and Output: 12/11/18 12/11/18 06:59 18:59 Intake Total 540 600 Output Total 1300 300 Balance -760 300 - Medications Medications: Current Medications Acetaminophen (Tylenol 325mg Tab) 975 mg PO Q8 REPLACED BY [facility] Last Admin: 12/11/18 13:23 Dose: 975 mg Amlodipine Besylate (Norvasc) 5 mg PO DAILY REPLACED BY [facility] Last Admin: 12/11/18 10:30 Dose: 5 mg Bupropion HCl (Wellbutrin) 200 mg PO DAILY REPLACED BY [facility] Last Admin: 12/11/18 10:29 Dose: 200 mg Dextrose (Glutose 15) 0 gm PO ONCE PRN; Protocol PRN Reason: Hypoglycemia Protocol Diphenhydramine HCl (Benadryl) 25 mg PO TID REPLACED BY [facility] Last Admin: 12/11/18 17:32 Dose: 25 mg Docusate Sodium (Colace) 100 mg PO BID REPLACED BY [facility] Last Admin: 12/11/18 17:32 Dose: 100 mg Glucagon (Glucagen Diagnostic Kit) 0 mg IM STAT PRN; Protocol PRN Reason: Hypoglycemia Protocol Guaifenesin/Dextromethorphan (Robitussin Dm) 5 ml PO Q4H PRN PRN Reason: Cough Last Admin: 12/11/18 10:29 Dose: 5 ml Heparin Sodium (Porcine) (Heparin) 5,000 units SC Q8 REPLACED BY [facility] Last Admin: 12/11/18 13:24 Dose: 5,000 units Hydromorphone HCl (Dilaudid) 0.5 mg IVP Q4H PRN PRN Reason: Pain, severe (8-10) Vancomycin/Sodium Chloride (Vancomycin 1 Gm/Ns 200 Ml) 1 gm in 200 mls @ 133.333 mls/hr IVPB Q12H REPLACED BY [facility]; Protocol Last Admin: 12/11/18 12:20 Dose: 133.333 mls/hr Ciprofloxacin (Cipro 400mg/200ml Dsw) 400 mg in 200 mls @ 133 mls/hr IVPB Q12H REPLACED BY [facility]; Protocol Last Admin: 12/11/18 08:18 Dose: 133 mls/hr Metronidazole (Flagyl) 500 mg in 100 mls @ 100 mls/hr IVPB Q8H REPLACED BY [facility]; Protocol Last Admin: 12/11/18 14:31 Dose: 100 mls/hr Insulin Aspart (Novolog) 0 unit SC ACHS REPLACED BY [facility]; Protocol Last Admin: 12/11/18 16:34 Dose: Not Given Insulin Aspart (Novolog) 14 unit SC AC REPLACED BY [facility] Last Admin: 12/11/18 16:34 Dose: Not Given Insulin Glargine (Lantus) 40 unit SC HS REPLACED BY [facility] Last Admin: 12/10/18 22:09 Dose: 40 units Isosorbide Mononitrate (Imdur Er) 30 mg PO DAILY REPLACED BY [facility] Last Admin: 12/11/18 10:30 Dose: 30 mg Metoprolol Tartrate (Lopressor) 50 mg PO DAILY REPLACED BY [facility] Last Admin: 12/11/18 10:30 Dose: 50 mg Ondansetron HCl (Zofran Inj) 4 mg IVP Q4H PRN PRN Reason: Nausea/Vomiting Last Admin: 12/05/18 05:01 Dose: 4 mg Oxycodone/Acetaminophen (Percocet 5/325 Mg Tab) 2 tab PO Q4H PRN PRN Reason: Pain, moderate (4-7) Stop: 12/13/18 13:57 Last Admin: 12/11/18 14:31 Dose: 2 tab Topiramate (Topamax) 100 mg PO TID REPLACED BY [facility] Last Admin: 12/11/18 17:32 Dose: 100 mg - Labs Labs: 12/10/18 08:57 12/11/18 08:28 PT 11.9 SECONDS (9.7-12.2) 12/03/18 10:54 INR 1.1 12/03/18 10:54 APTT 25 SECONDS (21-34) 12/03/18 10:54 - Constitutional Appears: No Acute Distress - Head Exam Head Exam: NORMAL INSPECTION - Eye Exam Eye Exam: EOMI, PERRL - ENT Exam ENT Exam: Mucous Membranes Moist, Normal Oropharynx - Neck Exam Neck Exam: Normal Inspection - Respiratory Exam Respiratory Exam: Decreased Breath Sounds (BILATERAL BASILAR.), NORMAL BREATHING PATTERN Additional comments: RIGHT CHEST TUBE DRESSING INTACT/CLEAN/AND DRY. - Cardiovascular Exam Cardiovascular Exam: REGULAR RHYTHM, +S1, +S2 - GI/Abdominal Exam GI & Abdominal Exam: Soft, Normal Bowel Sounds - Extremities Exam Extremities Exam: Normal Capillary Refill, Pedal Edema (2+ EDEMA). absent: Calf Tenderness - Neurological Exam Neurological Exam: Alert, Awake, CN II-XII Intact, Oriented x3 - Psychiatric Exam Psychiatric exam: Normal Mood - Skin Skin Exam: Normal Color, Warm Assessment and Plan (1) Empyema Status: Acute (2) Recurrent right pleural effusion Status: Acute (3) Post-thoracotomy pain Status: Acute (4) Sepsis syndrome Status: Acute (5) DKA (diabetic ketoacidoses) Status: Resolved (6) Insulin dependent diabetes mellitus Status: Chronic (7) Hypertension Status: Chronic - Assessment and Plan (Free Text) Plan: CONTINUE CIPRO 400 MG iv PIGGYBACK EVERY 12 HOURLY 11/18/18. CONTINUE IV VANCOMYCIN 1000 MG IVPB Q 12HRLY 11/20 CONTINUE IV FLAGYL 500MG IVPB Q 8HRLY 11/28/18 F/U VANCO TROUGH IN AM BMP IN AM CBC IN AM DIURESIS IS PER pmd/CARDIOLOGY.
[2018-12-11] MEDS ORDERED: Magnesium Oxide 400 mg Tab UD PO STA (21:05)
[2018-12-11] MEDS ORDERED: Potassium Chloride 10 mEq ER Tab PO STA (21:06)
--- NOTE | 2018-12-11 21:12 | CP.PCM.PN ---
Subjective - Date & Time of Evaluation Date of Evaluation: 12/11/18 Time of Evaluation: 21:08 - Subjective Subjective: Patient still with a productive cough, edema of the legs. CXR today reveals patchy infiltrates of the right lung with bibasilar consolidation. On IV antibiotics. Objective - Vital Signs/Intake and Output Vital Signs (last 24 hours): Temp Pulse Resp BP Pulse Ox 98 F 90 20 148/73 96 12/11/18 20:31 12/11/18 20:31 12/11/18 20:31 12/11/18 20:31 12/11/18 20:31 Intake and Output: 12/11/18 12/12/18 18:59 06:59 Intake Total 600 Output Total 300 Balance 300 - Medications Medications: Current Medications Acetaminophen (Tylenol 325mg Tab) 975 mg PO Q8 [facility] Last Admin: 12/11/18 13:23 Dose: 975 mg Amlodipine Besylate (Norvasc) 5 mg PO DAILY [facility] Last Admin: 12/11/18 10:30 Dose: 5 mg Bupropion HCl (Wellbutrin) 200 mg PO DAILY [facility] Last Admin: 12/11/18 10:29 Dose: 200 mg Dextrose (Glutose 15) 0 gm PO ONCE PRN; Protocol PRN Reason: Hypoglycemia Protocol Diphenhydramine HCl (Benadryl) 25 mg PO TID [facility] Last Admin: 12/11/18 17:32 Dose: 25 mg Docusate Sodium (Colace) 100 mg PO BID [facility] Last Admin: 12/11/18 17:32 Dose: 100 mg Glucagon (Glucagen Diagnostic Kit) 0 mg IM STAT PRN; Protocol PRN Reason: Hypoglycemia Protocol Guaifenesin/Dextromethorphan (Robitussin Dm) 5 ml PO Q4H PRN PRN Reason: Cough Last Admin: 12/11/18 10:29 Dose: 5 ml Heparin Sodium (Porcine) (Heparin) 5,000 units SC Q8 [facility] Last Admin: 12/11/18 13:24 Dose: 5,000 units Hydromorphone HCl (Dilaudid) 0.5 mg IVP Q4H PRN PRN Reason: Pain, severe (8-10) Vancomycin/Sodium Chloride (Vancomycin 1 Gm/Ns 200 Ml) 1 gm in 200 mls @ 133.333 mls/hr IVPB Q12H [facility]; Protocol Last Admin: 12/11/18 12:20 Dose: 133.333 mls/hr Ciprofloxacin (Cipro 400mg/200ml Dsw) 400 mg in 200 mls @ 133 mls/hr IVPB Q12H [facility]; Protocol Last Admin: 12/11/18 08:18 Dose: 133 mls/hr Metronidazole (Flagyl) 500 mg in 100 mls @ 100 mls/hr IVPB Q8H [facility]; Protocol Last Admin: 12/11/18 14:31 Dose: 100 mls/hr Insulin Aspart (Novolog) 0 unit SC ACHS [facility]; Protocol Last Admin: 12/11/18 16:34 Dose: Not Given Insulin Aspart (Novolog) 14 unit SC AC [facility] Last Admin: 12/11/18 16:34 Dose: Not Given Insulin Glargine (Lantus) 40 unit SC HS [facility] Last Admin: 12/10/18 22:09 Dose: 40 units Isosorbide Mononitrate (Imdur Er) 30 mg PO DAILY [facility] Last Admin: 12/11/18 10:30 Dose: 30 mg Magnesium Oxide (Mag-Ox) 800 mg PO STAT STA Stop: 12/11/18 21:06 Metoprolol Tartrate (Lopressor) 50 mg PO DAILY [facility] Last Admin: 12/11/18 10:30 Dose: 50 mg Ondansetron HCl (Zofran Inj) 4 mg IVP Q4H PRN PRN Reason: Nausea/Vomiting Last Admin: 12/05/18 05:01 Dose: 4 mg Oxycodone/Acetaminophen (Percocet 5/325 Mg Tab) 2 tab PO Q4H PRN PRN Reason: Pain, moderate (4-7) Stop: 12/13/18 13:57 Last Admin: 12/11/18 14:31 Dose: 2 tab Potassium Chloride (Klor-Con 10) 20 meq PO STAT STA Stop: 12/11/18 21:07 Topiramate (Topamax) 100 mg PO TID [facility] Last Admin: 12/11/18 17:32 Dose: 100 mg - Labs Labs: 12/10/18 08:57 12/11/18 08:28 PT 11.9 SECONDS (9.7-12.2) 12/03/18 10:54 INR 1.1 12/03/18 10:54 APTT 25 SECONDS (21-34) 12/03/18 10:54 - Constitutional Appears: No Acute Distress, Chronically Ill - Head Exam Head Exam: NORMAL INSPECTION - Eye Exam Eye Exam: Normal appearance Pupil Exam: NORMAL ACCOMODATION - ENT Exam ENT Exam: Normal Exam - Neck Exam Neck Exam: Normal Inspection - Respiratory Exam Respiratory Exam: Rhonchi Additional comments: Rhonchi bilaterally. - Cardiovascular Exam Cardiovascular Exam: REGULAR RHYTHM - GI/Abdominal Exam GI & Abdominal Exam: Soft, Normal Bowel Sounds - Rectal Exam Rectal Exam: Deferred - Extremities Exam Extremities Exam: Pedal Edema Additional comments: 2+ edema of the lower legs. - Back Exam Back Exam: NORMAL INSPECTION - Neurological Exam Neurological Exam: Alert - Psychiatric Exam Psychiatric exam: Anxious - Skin Skin Exam: Dry, Intact, Normal Color, Warm Assessment and Plan (1) DKA (diabetic ketoacidoses) Status: Resolved (2) Acute exacerbation of chronic low back pain Status: Chronic (3) Sepsis syndrome Status: Acute (4) Bilateral bronchopneumonia Status: Acute (5) Recurrent right pleural effusion Status: Acute
[2018-12-11] MEDS: (Lantus) Insulin Glargine, Recombinant SC SCH (22:35)
[2018-12-12] MEDS: metroNIDAZOLE IV 500 mg/100 ml 500 MG/100 ML BAG IVPB SCH ×3 (00:10→14:45)
[2018-12-12] MEDS: Vancomycin 1 gm/NS 200 ml 1 GM/200 ML BAG IVPB SCH (01:27)
[2018-12-12] MEDS: Oxycodone/Acetaminophen 5/325 mg Tab PO PRN ×3 (01:28→18:59)
--- NOTE | 2018-12-12 03:28 | PN ---
DATE: 12/11/2018 ENDOCRINOLOGY FOLLOWUP NOTE LOCATION: Room 565. This is a 68-year-old female with recent right hemothorax and underwent exploratory thoracotomy and decortication with evacuation of right pleural effusion and is now being followed closely for metabolic management. Her oral intake again is variable at this time with fluctuating glycemic values as expected, and the low normal glucose level today of 54 early afternoon with a subsequent level of 68 and latest value 117 to 141 mg/dL. Her latest chemistries showed a BUN of 16, sodium 136, potassium 3.6, chloride 109, CO2 of 25, glucose 112, and creatinine 1. So at this time, we will modify once again her basal and bolus insulin regimen because of the variability of her intake and lower the NovoLog to 10 units t.i.d. before meals to start tomorrow morning as ordered. We will also continue the low-dose correction scale using NovoLog insulin to allow for dose equilibration and also obviate hypoglycemia. We will also lower the basal insulin with Lantus given at a lower dose of 34 units subcu at bedtime daily to start tonight. We will titrate incrementally as indicated to optimize metabolic control. We will obtain serial chemistries and supplement accordingly as needed. We will follow. Elly Hannah MD
--- NOTE | 2018-12-12 03:30 | CP.PCM.PN ---
Subjective - Date & Time of Evaluation Date of Evaluation: 12/12/18 Time of Evaluation: 03:28 - Subjective Subjective: SURGERY NOTE FOR DR. MARQUES 68M seen and examined at bedside. no acute events overnight respiratory jose. no shortness of breath. Objective - Vital Signs/Intake and Output Vital Signs (last 24 hours): Temp Pulse Resp BP Pulse Ox 98.2 F 91 H 20 146/71 98 12/11/18 23:15 12/11/18 23:15 12/11/18 23:15 12/11/18 23:15 12/11/18 23:15 Intake and Output: 12/11/18 12/12/18 18:59 06:59 Intake Total 600 500 Output Total 300 Balance 300 500 - Medications Medications: Current Medications Acetaminophen (Tylenol 325mg Tab) 975 mg PO Q8 [facility] Last Admin: 12/11/18 21:46 Dose: Not Given Amlodipine Besylate (Norvasc) 5 mg PO DAILY [facility] Last Admin: 12/11/18 10:30 Dose: 5 mg Bupropion HCl (Wellbutrin) 200 mg PO DAILY [facility] Last Admin: 12/11/18 10:29 Dose: 200 mg Dextrose (Glutose 15) 0 gm PO ONCE PRN; Protocol PRN Reason: Hypoglycemia Protocol Diphenhydramine HCl (Benadryl) 25 mg PO TID [facility] Last Admin: 12/11/18 17:32 Dose: 25 mg Docusate Sodium (Colace) 100 mg PO BID [facility] Last Admin: 12/11/18 17:32 Dose: 100 mg Glucagon (Glucagen Diagnostic Kit) 0 mg IM STAT PRN; Protocol PRN Reason: Hypoglycemia Protocol Guaifenesin/Dextromethorphan (Robitussin Dm) 5 ml PO Q4H PRN PRN Reason: Cough Last Admin: 12/11/18 21:25 Dose: 5 ml Heparin Sodium (Porcine) (Heparin) 5,000 units SC Q8 [facility] Last Admin: 12/11/18 21:25 Dose: 5,000 units Hydromorphone HCl (Dilaudid) 0.5 mg IVP Q4H PRN PRN Reason: Pain, severe (8-10) Vancomycin/Sodium Chloride (Vancomycin 1 Gm/Ns 200 Ml) 1 gm in 200 mls @ 133.333 mls/hr IVPB Q12H [facility]; Protocol Last Admin: 12/12/18 01:27 Dose: 133.333 mls/hr Ciprofloxacin (Cipro 400mg/200ml Dsw) 400 mg in 200 mls @ 133 mls/hr IVPB Q12H [facility]; Protocol Last Admin: 12/11/18 21:27 Dose: 133 mls/hr Metronidazole (Flagyl) 500 mg in 100 mls @ 100 mls/hr IVPB Q8H [facility]; Protocol Last Admin: 12/12/18 00:10 Dose: 100 mls/hr Insulin Aspart (Novolog) 0 unit SC ACHS [facility]; Protocol Last Admin: 12/11/18 22:36 Dose: Not Given Insulin Aspart (Novolog) 10 unit SC AC [facility] Insulin Glargine (Lantus) 34 unit SC HS [facility] Isosorbide Mononitrate (Imdur Er) 30 mg PO DAILY [facility] Last Admin: 12/11/18 10:30 Dose: 30 mg Metoprolol Tartrate (Lopressor) 50 mg PO DAILY [facility] Last Admin: 12/11/18 10:30 Dose: 50 mg Ondansetron HCl (Zofran Inj) 4 mg IVP Q4H PRN PRN Reason: Nausea/Vomiting Last Admin: 12/05/18 05:01 Dose: 4 mg Oxycodone/Acetaminophen (Percocet 5/325 Mg Tab) 2 tab PO Q4H PRN PRN Reason: Pain, moderate (4-7) Stop: 12/13/18 13:57 Last Admin: 12/12/18 01:28 Dose: 2 tab Topiramate (Topamax) 100 mg PO TID [facility] Last Admin: 12/11/18 17:32 Dose: 100 mg - Labs Labs: 12/10/18 08:57 12/11/18 08:28 PT 11.9 SECONDS (9.7-12.2) 12/03/18 10:54 INR 1.1 12/03/18 10:54 APTT 25 SECONDS (21-34) 12/03/18 10:54 - Constitutional Appears: Non-toxic, No Acute Distress - Respiratory Exam Respiratory Exam: NORMAL BREATHING PATTERN Additional comments: Right chest dressings CDI - Cardiovascular Exam Cardiovascular Exam: REGULAR RHYTHM, +S1, +S2 - GI/Abdominal Exam GI & Abdominal Exam: Soft. absent: Distended, Firm, Guarding, Rigid, Tenderness, Rebound Assessment and Plan - Assessment and Plan (Free Text) Assessment: 68F s/p right thoracotomy with decortication. POD#8 ant and post chest tubes removed, 12/09 and 12/10 respectively Plan: - OOB/ambulating - Incentive spirometer - daily CXR - Dressing site Further recs discuss with Dr. Grace Byrnes, PGY3
[2018-12-12] MEDS: (Novolog) Insulin Aspart, Recombinant 100 u/ml 10 ml vial SC SCH ×7 (08:19→21:07)
[2018-12-12 08:42] LABS: BASO % 0.1 % (0.0-2.0); EOS % 0.4 % (0.0-4.0); HEMOGLOBIN 8.2 g/dL (11.0-16.0); LYMPH # 0.4 K/uL (1.0-4.3); MEAN CELL VOLUME 95.9 fL (81.0-99.0); MEAN CORPUSCULAR HGB CONC 33.4 g/dL (33.0-37.0); MEAN PLATELET VOLUME 9.6 fL (7.2-11.7); MONO # 2.3 K/uL (0.0-0.8); MONO % 29.9 % (0.0-10.0); NEUT # 4.9 K/uL (1.8-7.0); NEUT % 64.6 % (50.0-75.0); PLATELET COUNT 152 K/uL (130-400); RBC 2.55 Mil/uL (3.80-5.20); RED CELL DISTRIBUTION WIDTH 15.3 % (11.5-14.5); WHITE BLOOD COUNT 7.5 K/uL (4.8-10.8)
--- NOTE | 2018-12-12 08:48 | RAD ---
Date of service: 12/12/2018 HISTORY: s/p chest tube removal COMPARISON: Portable chest 12/11/2018. FINDINGS: LUNGS: Linear atelectasis or fibrosis in the bilateral bases with left basilar atelectasis obscuring left hemidiaphragm. No definite right-sided infiltrate. PLEURA: No pneumothorax bilaterally. Resolution of right pleural effusion noted. No definite left pleural effusion. CARDIOVASCULAR: Calcific atherosclerotic changes are seen related to the thoracic aorta. Cardiac silhouette appears stable. No definite pulmonary vascular congestion. OSSEOUS STRUCTURES: Prior right thoracic thoracotomy or rib fractures reiterated. VISUALIZED UPPER ABDOMEN: Normal. OTHER FINDINGS: None. IMPRESSION: Resolution right pleural effusion with no left pleural effusion evident. Limited atelectasis seen in the left base with linear atelectasis or fibrosis identified bilateral bases.
[2018-12-12 08:49] LABS: ALB/GLOB RATIO 0.8 (1.0-2.1); ALBUMIN 2.3 g/dL (3.5-5.0); ALT/SGPT 26 U/L (9-52); AST/SGOT 50 U/L (14-36); BLOOD UREA NITROGEN 14 mg/dL (7-17); CALCIUM 7.8 mg/dl (8.6-10.4); GFR NON-AFRICAN AMERICAN > 60
[2018-12-12] MEDS: guaiFENesin DM 100 mg-10 mg/5 ml UD PO PRN ×2 (10:19→18:59)
[2018-12-12] MEDS: Ciprofloxacin 400mg/200ml D5W 400 MG/200 ML BAG IVPB SCH ×2 (10:21→21:09)
[2018-12-12 13:35] LABS: ANISOCYTOSIS SLIGHT; BANDS 4 % (0-2); BURR CELLS SLIGHT; EOSINOPHIL 1 % (0-4); LYMPHOCYTE 6 % (20-40); MONOCYTE 22 % (0-10); MYELOCYTE 1 % (0-0); NEUTROPHIL 65 % (50-75); OVALOCYTES SLIGHT; PLATELET ESTIMATE NORMAL (NORMAL); REACTIVE LYMPHOCYTES 1 % (0-0); TOTAL CELLS COUNTED 100
[2018-12-12] MEDS: (Lantus) Insulin Glargine, Recombinant SC SCH (22:15)
--- NOTE | 2018-12-12 22:32 | CP.PCM.PN ---
Subjective - Date & Time of Evaluation Date of Evaluation: 12/12/18 Time of Evaluation: 22:32 - Subjective Subjective: AFEBRILE, STILL C/O COUGH, DENIES SOB DENIES EXPECTORATION. LABS REVIEWED VANCO .TROUGH LEVEL 27.6 HIGH ( VANCO ON HOLD TILL FRIDAY ) Objective - Vital Signs/Intake and Output Vital Signs (last 24 hours): Temp Pulse Resp BP Pulse Ox 97.6 F 91 H 20 165/79 H 99 12/12/18 07:20 12/12/18 14:41 12/12/18 07:20 12/12/18 21:08 12/12/18 13:13 - Medications Medications: Current Medications Acetaminophen (Tylenol 325mg Tab) 975 mg PO Q8 [facility] Last Admin: 12/12/18 21:07 Dose: 975 mg Amlodipine Besylate (Norvasc) 5 mg PO DAILY [facility] Last Admin: 12/12/18 10:30 Dose: 5 mg Bupropion HCl (Wellbutrin) 200 mg PO DAILY [facility] Last Admin: 12/12/18 10:18 Dose: 200 mg Dextrose (Glutose 15) 0 gm PO ONCE PRN; Protocol PRN Reason: Hypoglycemia Protocol Diphenhydramine HCl (Benadryl) 25 mg PO TID [facility] Last Admin: 12/12/18 18:59 Dose: 25 mg Docusate Sodium (Colace) 100 mg PO BID [facility] Last Admin: 12/12/18 18:59 Dose: 100 mg Furosemide (Lasix) 40 mg IVP DAILY [facility] Glucagon (Glucagen Diagnostic Kit) 0 mg IM STAT PRN; Protocol PRN Reason: Hypoglycemia Protocol Guaifenesin/Dextromethorphan (Robitussin Dm) 5 ml PO Q4H PRN PRN Reason: Cough Last Admin: 12/12/18 18:59 Dose: 5 ml Heparin Sodium (Porcine) (Heparin) 5,000 units SC Q8 [facility] Last Admin: 12/12/18 21:08 Dose: 5,000 units Hydromorphone HCl (Dilaudid) 0.5 mg IVP Q4H PRN PRN Reason: Pain, severe (8-10) Vancomycin/Sodium Chloride (Vancomycin 1 Gm/Ns 200 Ml) 1 gm in 200 mls @ 133.333 mls/hr IVPB Q12H [facility]; Protocol Last Admin: 12/12/18 01:27 Dose: 133.333 mls/hr Ciprofloxacin (Cipro 400mg/200ml Dsw) 400 mg in 200 mls @ 133 mls/hr IVPB Q12H [facility]; Protocol Last Admin: 12/12/18 21:09 Dose: 133 mls/hr Metronidazole (Flagyl) 500 mg in 100 mls @ 100 mls/hr IVPB Q8H [facility]; Protocol Last Admin: 12/12/18 14:45 Dose: 100 mls/hr Insulin Aspart (Novolog) 0 unit SC ACHS [facility]; Protocol Last Admin: 12/12/18 21:07 Dose: Not Given Insulin Aspart (Novolog) 10 unit SC AC [facility] Last Admin: 12/12/18 19:00 Dose: 10 unit Insulin Glargine (Lantus) 34 unit SC HS [facility] Isosorbide Mononitrate (Imdur Er) 30 mg PO DAILY [facility] Last Admin: 12/12/18 10:30 Dose: 30 mg Metoprolol Tartrate (Lopressor) 50 mg PO DAILY [facility] Last Admin: 12/12/18 10:30 Dose: 50 mg Ondansetron HCl (Zofran Inj) 4 mg IVP Q4H PRN PRN Reason: Nausea/Vomiting Last Admin: 12/05/18 05:01 Dose: 4 mg Oxycodone/Acetaminophen (Percocet 5/325 Mg Tab) 2 tab PO Q4H PRN PRN Reason: Pain, moderate (4-7) Stop: 12/13/18 13:57 Last Admin: 12/12/18 18:59 Dose: 2 tab Topiramate (Topamax) 100 mg PO TID [facility] Last Admin: 12/12/18 18:59 Dose: 100 mg - Labs Labs: 12/12/18 08:24 12/12/18 08:24 PT 11.9 SECONDS (9.7-12.2) 12/03/18 10:54 INR 1.1 12/03/18 10:54 APTT 25 SECONDS (21-34) 12/03/18 10:54 - Constitutional Appears: No Acute Distress - Head Exam Head Exam: NORMAL INSPECTION - Eye Exam Eye Exam: EOMI, PERRL - ENT Exam ENT Exam: Mucous Membranes Moist, Normal Oropharynx - Neck Exam Neck Exam: Normal Inspection. absent: Meningismus - Respiratory Exam Respiratory Exam: Decreased Breath Sounds, Prolonged Expiratory Phase - Cardiovascular Exam Cardiovascular Exam: REGULAR RHYTHM, +S1, +S2 - GI/Abdominal Exam GI & Abdominal Exam: Soft, Normal Bowel Sounds - Extremities Exam Extremities Exam: Normal Capillary Refill, Pedal Edema (2+). absent: Calf Tenderness, Tenderness - Neurological Exam Neurological Exam: Alert, Awake, CN II-XII Intact, Oriented x3 - Psychiatric Exam Psychiatric exam: Normal Mood - Skin Skin Exam: Normal Color, Warm Assessment and Plan (1) Empyema Status: Acute (2) Recurrent right pleural effusion Status: Acute (3) Post-thoracotomy pain Status: Acute (4) Sepsis syndrome Status: Acute (5) DKA (diabetic ketoacidoses) Status: Resolved (6) Insulin dependent diabetes mellitus Status: Chronic (7) Hypertension Status: Chronic - Assessment and Plan (Free Text) Plan: CONTINUE CIPRO 400 MG iv PIGGYBACK EVERY 12 HOURLY 11/18/18. HOLD IV VANCOMYCIN 1000 MG IVPB Q 12HRLY 11/20 ( ON HOLD SINCE 12/11/18 ) F/U VANCO RANDOM LEVEL ON FRIDAY DC IV FLAGYL 500MG IVPB Q 8HRLY 11/28/18- 12/11/18 DIURESIS IS PER pmd/CARDIOLOGY.
--- NOTE | 2018-12-12 23:47 | CP.PCM.PN ---
Subjective - Date & Time of Evaluation Date of Evaluation: 12/12/18 Time of Evaluation: 17:30 - Subjective Subjective: Patient has SOB and edema. Afebrile. Objective - Vital Signs/Intake and Output Vital Signs (last 24 hours): Temp Pulse Resp BP Pulse Ox 97.6 F 91 H 20 165/79 H 99 12/12/18 07:20 12/12/18 14:41 12/12/18 07:20 12/12/18 21:08 12/12/18 13:13 - Medications Medications: Current Medications Acetaminophen (Tylenol 325mg Tab) 975 mg PO Q8 [facility] Last Admin: 12/12/18 21:07 Dose: 975 mg Amlodipine Besylate (Norvasc) 5 mg PO DAILY [facility] Last Admin: 12/12/18 10:30 Dose: 5 mg Bupropion HCl (Wellbutrin) 200 mg PO DAILY [facility] Last Admin: 12/12/18 10:18 Dose: 200 mg Dextrose (Glutose 15) 0 gm PO ONCE PRN; Protocol PRN Reason: Hypoglycemia Protocol Diphenhydramine HCl (Benadryl) 25 mg PO TID [facility] Last Admin: 12/12/18 18:59 Dose: 25 mg Docusate Sodium (Colace) 100 mg PO BID [facility] Last Admin: 12/12/18 18:59 Dose: 100 mg Furosemide (Lasix) 40 mg IVP DAILY [facility] Glucagon (Glucagen Diagnostic Kit) 0 mg IM STAT PRN; Protocol PRN Reason: Hypoglycemia Protocol Guaifenesin/Dextromethorphan (Robitussin Dm) 5 ml PO Q4H PRN PRN Reason: Cough Last Admin: 12/12/18 18:59 Dose: 5 ml Heparin Sodium (Porcine) (Heparin) 5,000 units SC Q8 [facility] Last Admin: 12/12/18 21:08 Dose: 5,000 units Hydromorphone HCl (Dilaudid) 0.5 mg IVP Q4H PRN PRN Reason: Pain, severe (8-10) Vancomycin/Sodium Chloride (Vancomycin 1 Gm/Ns 200 Ml) 1 gm in 200 mls @ 133.333 mls/hr IVPB Q12H [facility]; Protocol Last Admin: 12/12/18 01:27 Dose: 133.333 mls/hr Ciprofloxacin (Cipro 400mg/200ml Dsw) 400 mg in 200 mls @ 133 mls/hr IVPB Q12H [facility]; Protocol Last Admin: 12/12/18 21:09 Dose: 133 mls/hr Insulin Aspart (Novolog) 0 unit SC ACHS [facility]; Protocol Last Admin: 12/12/18 21:07 Dose: Not Given Insulin Aspart (Novolog) 10 unit SC AC [facility] Last Admin: 12/12/18 19:00 Dose: 10 unit Insulin Glargine (Lantus) 34 unit SC HS [facility] Isosorbide Mononitrate (Imdur Er) 30 mg PO DAILY [facility] Last Admin: 12/12/18 10:30 Dose: 30 mg Metoprolol Tartrate (Lopressor) 50 mg PO DAILY [facility] Last Admin: 12/12/18 10:30 Dose: 50 mg Ondansetron HCl (Zofran Inj) 4 mg IVP Q4H PRN PRN Reason: Nausea/Vomiting Last Admin: 12/05/18 05:01 Dose: 4 mg Oxycodone/Acetaminophen (Percocet 5/325 Mg Tab) 2 tab PO Q4H PRN PRN Reason: Pain, moderate (4-7) Stop: 12/13/18 13:57 Last Admin: 12/12/18 18:59 Dose: 2 tab Topiramate (Topamax) 100 mg PO TID [facility] Last Admin: 12/12/18 18:59 Dose: 100 mg - Labs Labs: 12/12/18 08:24 12/12/18 08:24 PT 11.9 SECONDS (9.7-12.2) 12/03/18 10:54 INR 1.1 12/03/18 10:54 APTT 25 SECONDS (21-34) 12/03/18 10:54 - Constitutional Appears: No Acute Distress, Chronically Ill - Head Exam Head Exam: NORMOCEPHALIC - Eye Exam Eye Exam: Normal appearance - ENT Exam ENT Exam: Normal Exam - Neck Exam Neck Exam: Normal Inspection - Respiratory Exam Respiratory Exam: Rhonchi - Cardiovascular Exam Cardiovascular Exam: REGULAR RHYTHM - GI/Abdominal Exam GI & Abdominal Exam: Soft - Rectal Exam Rectal Exam: Deferred - Exam Exam: NORMAL INSPECTION - Extremities Exam Extremities Exam: Pedal Edema - Back Exam Back Exam: NORMAL INSPECTION - Neurological Exam Neurological Exam: Alert, Awake, Oriented x3 - Psychiatric Exam Psychiatric exam: Anxious - Skin Skin Exam: Dry, Normal Color, Warm Assessment and Plan (1) DKA (diabetic ketoacidoses) Status: Resolved (2) Acute exacerbation of chronic low back pain Status: Chronic (3) Sepsis syndrome Status: Acute (4) Bilateral bronchopneumonia Status: Acute (5) Recurrent right pleural effusion Assessment & Plan: CXR: resolved pleural effusion. Status: Acute (6) Acute on chronic heart failure Status: Acute (7) Acute on chronic diastolic (congestive) heart failure Assessment & Plan: Due to fluid overload. To continue Lasix 40 mg IV qd. Status: Acute
[2018-12-13] MEDS: Oxycodone/Acetaminophen 5/325 mg Tab PO PRN (01:08)
--- NOTE | 2018-12-13 01:19 | PN ---
DATE: 12/12/2018 ENDOCRINOLOGY FOLLOWUP NOTE LOCATION: Room 565. This is a 68-year-old female with recent uncontrolled type 2 insulin-requiring diabetes, now being followed closely for metabolic management. Her glycemic levels are fluctuating but improved, and the glucose values have ranged from 193 to 196 and 264 mg/dL. Her chemistry showed a BUN of 14, sodium 135, potassium 4, chloride 108, CO2 of 24, glucose 201, and creatinine 0.9. So at this time, we will continue the same basal and bolus insulin regimen only because of the variability of her oral intake and keep her on the same low-dose correction scale using NovoLog insulin as given. We will continue the NovoLog given as 10 units t.i.d. before meals as ordered. We will continue also the same basal insulin with Lantus given as 34 units subcu at bedtime daily as given. We will titrate incrementally as indicated to optimize metabolic control. We will follow and advise accordingly. Elly Hannah MD
--- NOTE | 2018-12-13 08:05 | CP.PCM.PN ---
Subjective - Date & Time of Evaluation Date of Evaluation: 12/13/18 Time of Evaluation: 08:04 - Subjective Subjective: Thoracic Surgery Dr. Edwards Pt S&E @bedside. No acute events overngiht. c/o 8-9/10 pain despite receiving pain meds. reports using ISP. tolerating diet. Objective - Vital Signs/Intake and Output Vital Signs (last 24 hours): Temp Pulse Resp BP Pulse Ox 98.2 F 86 20 163/81 H 97 12/13/18 00:00 12/13/18 00:00 12/13/18 00:00 12/13/18 00:00 12/13/18 00:00 Intake and Output: 12/13/18 12/13/18 06:59 18:59 Output Total 600 Balance -600 - Medications Medications: Current Medications Acetaminophen (Tylenol 325mg Tab) 975 mg PO Q8 [facility] Last Admin: 12/13/18 05:12 Dose: 975 mg Amlodipine Besylate (Norvasc) 5 mg PO DAILY [facility] Last Admin: 12/12/18 10:30 Dose: 5 mg Bupropion HCl (Wellbutrin) 200 mg PO DAILY [facility] Last Admin: 12/12/18 10:18 Dose: 200 mg Dextrose (Glutose 15) 0 gm PO ONCE PRN; Protocol PRN Reason: Hypoglycemia Protocol Diphenhydramine HCl (Benadryl) 25 mg PO TID [facility] Last Admin: 12/12/18 18:59 Dose: 25 mg Docusate Sodium (Colace) 100 mg PO BID [facility] Last Admin: 12/12/18 18:59 Dose: 100 mg Furosemide (Lasix) 40 mg IVP DAILY [facility] Glucagon (Glucagen Diagnostic Kit) 0 mg IM STAT PRN; Protocol PRN Reason: Hypoglycemia Protocol Guaifenesin/Dextromethorphan (Robitussin Dm) 5 ml PO Q4H PRN PRN Reason: Cough Last Admin: 12/12/18 18:59 Dose: 5 ml Heparin Sodium (Porcine) (Heparin) 5,000 units SC Q8 [facility] Last Admin: 12/13/18 05:12 Dose: 5,000 units Hydromorphone HCl (Dilaudid) 0.5 mg IVP Q4H PRN PRN Reason: Pain, severe (8-10) Vancomycin/Sodium Chloride (Vancomycin 1 Gm/Ns 200 Ml) 1 gm in 200 mls @ 133.333 mls/hr IVPB Q12H [facility]; Protocol Last Admin: 12/12/18 01:27 Dose: 133.333 mls/hr Ciprofloxacin (Cipro 400mg/200ml Dsw) 400 mg in 200 mls @ 133 mls/hr IVPB Q12H [facility]; Protocol Last Admin: 12/12/18 21:09 Dose: 133 mls/hr Insulin Aspart (Novolog) 0 unit SC ACHS [facility]; Protocol Last Admin: 12/12/18 21:07 Dose: Not Given Insulin Aspart (Novolog) 10 unit SC AC [facility] Last Admin: 12/12/18 19:00 Dose: 10 unit Insulin Glargine (Lantus) 34 unit SC HS [facility] Last Admin: 12/12/18 22:15 Dose: Not Given Isosorbide Mononitrate (Imdur Er) 30 mg PO DAILY [facility] Last Admin: 12/12/18 10:30 Dose: 30 mg Metoprolol Tartrate (Lopressor) 50 mg PO DAILY [facility] Last Admin: 12/12/18 10:30 Dose: 50 mg Ondansetron HCl (Zofran Inj) 4 mg IVP Q4H PRN PRN Reason: Nausea/Vomiting Last Admin: 12/05/18 05:01 Dose: 4 mg Oxycodone/Acetaminophen (Percocet 5/325 Mg Tab) 2 tab PO Q4H PRN PRN Reason: Pain, moderate (4-7) Stop: 12/13/18 13:57 Last Admin: 12/13/18 01:08 Dose: 2 tab Topiramate (Topamax) 100 mg PO TID [facility] Last Admin: 12/12/18 18:59 Dose: 100 mg - Labs Labs: 12/12/18 08:24 12/12/18 08:24 PT 11.9 SECONDS (9.7-12.2) 12/03/18 10:54 INR 1.1 12/03/18 10:54 APTT 25 SECONDS (21-34) 12/03/18 10:54 - Constitutional Appears: Non-toxic, No Acute Distress - Head Exam Head Exam: NORMAL INSPECTION - Eye Exam Eye Exam: Normal appearance - ENT Exam ENT Exam: Mucous Membranes Moist - Respiratory Exam Respiratory Exam: NORMAL BREATHING PATTERN. absent: Accessory Muscle Use, Respiratory Distress Additional comments: incision c/d/i; some blistering around tape prior chest tube site dressings c/d/i - Cardiovascular Exam Cardiovascular Exam: REGULAR RHYTHM. absent: Bradycardia, Tachycardia - GI/Abdominal Exam GI & Abdominal Exam: Soft. absent: Distended, Tenderness - Extremities Exam Extremities Exam: Normal Inspection - Neurological Exam Neurological Exam: Alert, Awake, Oriented x3 - Psychiatric Exam Psychiatric exam: Normal Affect, Normal Mood - Skin Skin Exam: Dry, Intact, Normal Color, Warm Assessment and Plan - Assessment and Plan (Free Text) Assessment: 68 y/o F POD#9 s/p right thoracotomy w/ decortication chest tubes removed, 12/09 and 12/10 Plan: - added toradol 15mg [facility] for additional pain controll - encourage IS use/OOB to chair/Amb - f/u AM CXR - cont daily CXR - monitor surgical site Pt discussed w/ Dr. Grace Brannon DO PGY3
[2018-12-13 08:43] LABS: ALB/GLOB RATIO 0.8 (1.0-2.1); ALBUMIN 2.3 g/dL (3.5-5.0); ALT/SGPT 28 U/L (9-52); AST/SGOT 37 U/L (14-36); BLOOD UREA NITROGEN 14 mg/dL (7-17); CALCIUM 7.8 mg/dl (8.6-10.4); GFR NON-AFRICAN AMERICAN > 60
[2018-12-13] MEDS: (Novolog) Insulin Aspart, Recombinant 100 u/ml 10 ml vial SC SCH ×7 (09:00→23:01)
--- NOTE | 2018-12-13 10:00 | RAD ---
Date of service: 12/13/2018 HISTORY: s/p thoractomy COMPARISON: Portable chest 12/12/2018. FINDINGS: LUNGS: Improved aeration is appreciated at the left base with left hemidiaphragm now well-defined indicating resolution of prior left basilar subsegmental atelectasis with limited linear atelectasis or fibrosis remaining. Reticular markings remain somewhat increased at the mid to inferior right lung zone. PLEURA: No significant pleural effusion identified, no pneumothorax apparent. CARDIOVASCULAR: Calcific atherosclerotic changes are seen related to the thoracic aorta. Mild cardiomegaly stable. No pulmonary vascular congestion. OSSEOUS STRUCTURES: No significant abnormalities. VISUALIZED UPPER ABDOMEN: Normal. OTHER FINDINGS: Lateral right thoracic skin staple reiterated. IMPRESSION: Improved aeration bilateral lung bases with resolution of prior subsegmental atelectasis left base with linear atelectasis or fibrosis remaining. Reticular markings remain increased at the right base.
[2018-12-13] MEDS: Ciprofloxacin 400mg/200ml D5W 400 MG/200 ML BAG IVPB SCH ×2 (10:29→21:45)
[2018-12-13] MEDS: guaiFENesin DM 100 mg-10 mg/5 ml UD PO PRN ×2 (18:29→23:03)
--- NOTE | 2018-12-13 22:49 | CP.PCM.PN ---
Subjective - Date & Time of Evaluation Date of Evaluation: 12/13/18 Time of Evaluation: 19:00 - Subjective Subjective: Patient less SOB. Afebrile. CXR improving ateleactasis of both bases. Afebrile. In no respiratory distress. Still with edema of the lower extremities. Objective - Vital Signs/Intake and Output Vital Signs (last 24 hours): Temp Pulse Resp BP Pulse Ox 98.1 F 97 H 20 173/77 H 99 12/13/18 16:00 12/13/18 16:00 12/13/18 16:00 12/13/18 16:00 12/13/18 16:00 - Medications Medications: Current Medications Acetaminophen (Tylenol 325mg Tab) 975 mg PO Q8 [facility] Last Admin: 12/13/18 14:26 Dose: Not Given Amlodipine Besylate (Norvasc) 5 mg PO DAILY [facility] Last Admin: 12/13/18 10:40 Dose: 5 mg Bupropion HCl (Wellbutrin) 200 mg PO DAILY [facility] Last Admin: 12/13/18 10:40 Dose: 200 mg Dextrose (Glutose 15) 0 gm PO ONCE PRN; Protocol PRN Reason: Hypoglycemia Protocol Diphenhydramine HCl (Benadryl) 25 mg PO TID [facility] Last Admin: 12/13/18 18:29 Dose: 25 mg Docusate Sodium (Colace) 100 mg PO BID [facility] Last Admin: 12/13/18 18:34 Dose: 100 mg Furosemide (Lasix) 40 mg IVP DAILY [facility] Last Admin: 12/13/18 10:23 Dose: 40 mg Glucagon (Glucagen Diagnostic Kit) 0 mg IM STAT PRN; Protocol PRN Reason: Hypoglycemia Protocol Guaifenesin/Dextromethorphan (Robitussin Dm) 5 ml PO Q4H PRN PRN Reason: Cough Last Admin: 12/13/18 18:29 Dose: 5 ml Heparin Sodium (Porcine) (Heparin) 5,000 units SC Q8 [facility] Last Admin: 12/13/18 14:08 Dose: 5,000 units Hydromorphone HCl (Dilaudid) 0.5 mg IVP Q4H PRN PRN Reason: Pain, severe (8-10) Vancomycin/Sodium Chloride (Vancomycin 1 Gm/Ns 200 Ml) 1 gm in 200 mls @ 133.33 3 mls/hr IVPB Q12H [facility]; Protocol Last Admin: 12/12/18 01:27 Dose: 133.333 mls/hr Ciprofloxacin (Cipro 400mg/200ml Dsw) 400 mg in 200 mls @ 133 mls/hr IVPB Q12H [facility]; Protocol Last Admin: 12/13/18 10:29 Dose: 133 mls/hr Insulin Aspart (Novolog) 0 unit SC ACHS [facility]; Protocol Last Admin: 12/13/18 18:29 Dose: 4 units Insulin Aspart (Novolog) 10 unit SC AC [facility] Last Admin: 12/13/18 18:30 Dose: 10 unit Insulin Glargine (Lantus) 34 unit SC HS [facility] Last Admin: 12/12/18 22:15 Dose: Not Given Isosorbide Mononitrate (Imdur Er) 30 mg PO DAILY [facility] Last Admin: 12/13/18 10:41 Dose: 30 mg Ketorolac Tromethamine (Toradol) 15 mg IVP Q6 [facility] Stop: 12/18/18 09:36 Last Admin: 12/13/18 18:31 Dose: 15 mg Metoprolol Tartrate (Lopressor) 50 mg PO DAILY [facility] Last Admin: 12/13/18 10:41 Dose: 50 mg Ondansetron HCl (Zofran Inj) 4 mg IVP Q4H PRN PRN Reason: Nausea/Vomiting Last Admin: 12/05/18 05:01 Dose: 4 mg Topiramate (Topamax) 100 mg PO TID [facility] Last Admin: 12/13/18 14:11 Dose: 100 mg - Labs Labs: 12/12/18 08:24 12/13/18 08:02 PT 11.9 SECONDS (9.7-12.2) 12/03/18 10:54 INR 1.1 12/03/18 10:54 APTT 25 SECONDS (21-34) 12/03/18 10:54 - Constitutional Appears: No Acute Distress, Chronically Ill - Head Exam Head Exam: NORMOCEPHALIC - Eye Exam Eye Exam: Normal appearance - ENT Exam ENT Exam: Normal Exam - Neck Exam Neck Exam: Normal Inspection - Respiratory Exam Respiratory Exam: Rhonchi - Cardiovascular Exam Cardiovascular Exam: REGULAR RHYTHM - GI/Abdominal Exam GI & Abdominal Exam: Soft, Normal Bowel Sounds - Rectal Exam Rectal Exam: Deferred - Extremities Exam Extremities Exam: Pedal Edema - Back Exam Back Exam: NORMAL INSPECTION - Neurological Exam Neurological Exam: Alert, Awake, Oriented x3 - Psychiatric Exam Psychiatric exam: Anxious - Skin Skin Exam: Dry, Intact, Normal Color, Warm Assessment and Plan (1) DKA (diabetic ketoacidoses) Status: Resolved (2) Acute exacerbation of chronic low back pain Status: Chronic (3) Sepsis syndrome Status: Resolved (4) Bilateral bronchopneumonia Status: Acute (5) Recurrent right pleural effusion Status: Acute (6) Acute on chronic diastolic (congestive) heart failure Status: Acute
[2018-12-13] MEDS: (Lantus) Insulin Glargine, Recombinant SC SCH (23:00)
--- NOTE | 2018-12-14 07:10 | PN ---
DATE: 12/13/2018 LOCATION: Room 565. SUBJECTIVE: This is a 68-year-old female with recent uncontrolled type 2 insulin-requiring diabetes, now being followed closely for metabolic management. Her glycemic levels are fluctuating with the variability of her oral intake as noted. Her glucose levels overnight have ranged from 103 to 233 mg/dL. Her chemistry showed a BUN of 14, sodium 134, potassium 3.8, chloride 106, CO2 of 23, glucose 246, and creatinine 0.9. ASSESSMENT AND PLAN: So, at this time, we will continue the same modified basal and bolus insulin regimen to allow for dose equilibration and keep her on the Lantus given as 34 units subcutaneous at bedtime daily as given. We will continue the NovoLog given as 10 units t.i.d. before meals as ordered. We will titrate incrementally as indicated to optimize metabolic control. We will follow and advise accordingly. Elly Hannah MD
[2018-12-14 07:25] LABS: BASO % 0.3 % (0.0-2.0); EOS # 0.1 K/uL (0.0-0.7); EOS % 0.8 % (0.0-4.0); HEMOGLOBIN 8.6 g/dL (11.0-16.0); LYMPH # 0.7 K/uL (1.0-4.3); LYMPH % 9.5 % (20.0-40.0); MEAN CELL VOLUME 96.8 fL (81.0-99.0); MEAN CORPUSCULAR HEMOGLOBIN 31.7 pg (27.0-31.0); MEAN CORPUSCULAR HGB CONC 32.8 g/dL (33.0-37.0); MONO # 2.7 K/uL (0.0-0.8); MONO % 35.2 % (0.0-10.0); NEUT # 4.1 K/uL (1.8-7.0); NEUT % 54.2 % (50.0-75.0); PLATELET COUNT 174 K/uL (130-400); RBC 2.71 Mil/uL (3.80-5.20); RED CELL DISTRIBUTION WIDTH 16.9 % (11.5-14.5); WHITE BLOOD COUNT 7.5 K/uL (4.8-10.8)
[2018-12-14 08:15] LABS: ALB/GLOB RATIO 0.8 (1.0-2.1); ALBUMIN 2.4 g/dL (3.5-5.0)
--- NOTE | 2018-12-14 08:19 | CP.PCM.PN ---
Subjective - Date & Time of Evaluation Date of Evaluation: 12/14/18 Time of Evaluation: 08:16 - Subjective Subjective: CT Surgery: Dr. Edwards Pt seen and examined. No acute events overnight. States she feels well and pain is well controlled at this time. She continues to have a cough but denies SOB. States she has been getting out of bed with PT. Denies fevers/chills. Objective - Vital Signs/Intake and Output Vital Signs (last 24 hours): Temp Pulse Resp BP Pulse Ox 97.4 F L 93 H 20 168/79 H 100 12/14/18 07:00 12/14/18 07:00 12/14/18 07:00 12/14/18 07:00 12/14/18 07:00 Intake and Output: 12/14/18 12/14/18 06:59 18:59 Output Total 500 Balance -500 - Medications Medications: Current Medications Acetaminophen (Tylenol 325mg Tab) 975 mg PO Q8 [facility] Last Admin: 12/14/18 05:44 Dose: 975 mg Amlodipine Besylate (Norvasc) 5 mg PO DAILY [facility] Last Admin: 12/13/18 10:40 Dose: 5 mg Bupropion HCl (Wellbutrin) 200 mg PO DAILY [facility] Last Admin: 12/13/18 10:40 Dose: 200 mg Dextrose (Glutose 15) 0 gm PO ONCE PRN; Protocol PRN Reason: Hypoglycemia Protocol Diphenhydramine HCl (Benadryl) 25 mg PO TID [facility] Last Admin: 12/13/18 18:29 Dose: 25 mg Docusate Sodium (Colace) 100 mg PO BID [facility] Last Admin: 12/13/18 18:34 Dose: 100 mg Furosemide (Lasix) 40 mg IVP DAILY [facility] Last Admin: 12/13/18 10:23 Dose: 40 mg Glucagon (Glucagen Diagnostic Kit) 0 mg IM STAT PRN; Protocol PRN Reason: Hypoglycemia Protocol Guaifenesin/Dextromethorphan (Robitussin Dm) 5 ml PO Q4H PRN PRN Reason: Cough Last Admin: 12/13/18 23:03 Dose: 5 ml Heparin Sodium (Porcine) (Heparin) 5,000 units SC Q8 [facility] Last Admin: 12/14/18 05:44 Dose: 5,000 units Hydromorphone HCl (Dilaudid) 0.5 mg IVP Q4H PRN PRN Reason: Pain, severe (8-10) Vancomycin/Sodium Chloride (Vancomycin 1 Gm/Ns 200 Ml) 1 gm in 200 mls @ 133.333 mls/hr IVPB Q12H [facility]; Protocol Last Admin: 12/12/18 01:27 Dose: 133.333 mls/hr Ciprofloxacin (Cipro 400mg/200ml Dsw) 400 mg in 200 mls @ 133 mls/hr IVPB Q12H [facility]; Protocol Last Admin: 12/13/18 21:45 Dose: 133 mls/hr Insulin Aspart (Novolog) 0 unit SC ACHS [facility]; Protocol Last Admin: 12/13/18 23:01 Dose: Not Given Insulin Aspart (Novolog) 10 unit SC AC [facility] Last Admin: 12/13/18 18:30 Dose: 10 unit Insulin Glargine (Lantus) 34 unit SC HS [facility] Last Admin: 12/13/18 23:00 Dose: 34 unit Isosorbide Mononitrate (Imdur Er) 30 mg PO DAILY [facility] Last Admin: 12/13/18 10:41 Dose: 30 mg Ketorolac Tromethamine (Toradol) 15 mg IVP Q6 [facility] Stop: 12/18/18 09:36 Last Admin: 12/14/18 05:44 Dose: 15 mg Metoprolol Tartrate (Lopressor) 50 mg PO DAILY [facility] Last Admin: 12/13/18 10:41 Dose: 50 mg Ondansetron HCl (Zofran Inj) 4 mg IVP Q4H PRN PRN Reason: Nausea/Vomiting Last Admin: 12/05/18 05:01 Dose: 4 mg Topiramate (Topamax) 100 mg PO TID [facility] Last Admin: 12/13/18 18:30 Dose: 100 mg - Labs Labs: 12/14/18 07:18 12/14/18 07:18 PT 11.9 SECONDS (9.7-12.2) 12/03/18 10:54 INR 1.1 12/03/18 10:54 APTT 25 SECONDS (21-34) 12/03/18 10:54 - Constitutional Appears: Well, No Acute Distress - Head Exam Head Exam: ATRAUMATIC, NORMOCEPHALIC - Eye Exam Eye Exam: Normal appearance - ENT Exam ENT Exam: Mucous Membranes Moist - Respiratory Exam Respiratory Exam: NORMAL BREATHING PATTERN Additional comments: R thoracotomy incision with gary; C/D/I - Neurological Exam Neurological Exam: Alert, Awake, Oriented x3 - Skin Skin Exam: Dry, Warm Assessment and Plan - Assessment and Plan (Free Text) Assessment: 68F s/p R thoracotomy with decortication for retained hemothorax/empyema: POD#10 Plan: - cont ABX per ID recs - encourage incentive spirometry and pulmonary toilet - no further surgical intervention at this time; pt clear for DC from surgical standpoint - f/u with Dr. Edwards in 1 week for staple removal - d/w Dr. Grace Dean
[2018-12-14] MEDS: (Novolog) Insulin Aspart, Recombinant 100 u/ml 10 ml vial SC SCH ×7 (08:28→21:59)
[2018-12-14] MEDS: Ciprofloxacin 400mg/200ml D5W 400 MG/200 ML BAG IVPB SCH ×2 (08:29→21:30)
[2018-12-14 08:41] LABS: EOSINOPHIL 3 % (0-4); LYMPHOCYTE 7 % (20-40); MONOCYTE 27 % (0-10); MYELOCYTE 2 % (0-0); NEUTROPHIL 60 % (50-75); REACTIVE LYMPHOCYTES 1 % (0-0); TOTAL CELLS COUNTED 100
[2018-12-14 08:42] LABS: ANISOCYTOSIS SLIGHT; HYPOCHROMIC SLIGHT; PLATELET ESTIMATE NORMAL (NORMAL); POIKILOCYTOSIS SLIGHT; TEARDROP CELLS SLIGHT
[2018-12-14 08:43] LABS: LARGE PLATELETS PRESENT; OVALOCYTES SLIGHT
[2018-12-14] MEDS: Vancomycin 1 gm/NS 200 ml 1 GM/200 ML BAG IVPB SCH (12:57)
--- NOTE | 2018-12-14 13:30 | CP.PCM.PN ---
Subjective - Date & Time of Evaluation Date of Evaluation: 12/14/18 Time of Evaluation: 13:28 - Subjective Subjective: Afebrile wbc 7k cxr-better aeration and improving. wounds-satisfactory. a/p: concurr with d/c plan. ct chest in one month. Objective - Vital Signs/Intake and Output Vital Signs (last 24 hours): Temp Pulse Resp BP Pulse Ox 97.4 F L 93 H 20 168/79 H 100 12/14/18 07:00 12/14/18 07:00 12/14/18 07:00 12/14/18 10:03 12/14/18 07:00 Intake and Output: 12/14/18 12/14/18 06:59 18:59 Output Total 500 Balance -500 - Medications Medications: Current Medications Acetaminophen (Tylenol 325mg Tab) 975 mg PO Q8 [facility] Last Admin: 12/14/18 05:44 Dose: 975 mg Amlodipine Besylate (Norvasc) 5 mg PO DAILY [facility] Last Admin: 12/14/18 10:04 Dose: 5 mg Bupropion HCl (Wellbutrin) 200 mg PO DAILY [facility] Last Admin: 12/14/18 10:04 Dose: 200 mg Dextrose (Glutose 15) 0 gm PO ONCE PRN; Protocol PRN Reason: Hypoglycemia Protocol Diphenhydramine HCl (Benadryl) 25 mg PO TID [facility] Last Admin: 12/14/18 10:04 Dose: 25 mg Docusate Sodium (Colace) 100 mg PO BID [facility] Last Admin: 12/14/18 10:04 Dose: 100 mg Furosemide (Lasix) 40 mg IVP DAILY [facility] Last Admin: 12/14/18 10:03 Dose: 40 mg Glucagon (Glucagen Diagnostic Kit) 0 mg IM STAT PRN; Protocol PRN Reason: Hypoglycemia Protocol Guaifenesin/Dextromethorphan (Robitussin Dm) 5 ml PO Q4H PRN PRN Reason: Cough Last Admin: 12/13/18 23:03 Dose: 5 ml Heparin Sodium (Porcine) (Heparin) 5,000 units SC Q8 [facility] Last Admin: 12/14/18 05:44 Dose: 5,000 units Hydromorphone HCl (Dilaudid) 0.5 mg IVP Q4H PRN PRN Reason: Pain, severe (8-10) Vancomycin/Sodium Chloride (Vancomycin 1 Gm/Ns 200 Ml) 1 gm in 200 mls @ 133.33 3 mls/hr IVPB Q12H [facility]; Protocol Last Admin: 12/14/18 12:57 Dose: 133.333 mls/hr Ciprofloxacin (Cipro 400mg/200ml Dsw) 400 mg in 200 mls @ 133 mls/hr IVPB Q12H [facility]; Protocol Last Admin: 12/14/18 08:29 Dose: 133 mls/hr Insulin Aspart (Novolog) 0 unit SC ACHS [facility]; Protocol Last Admin: 12/14/18 12:30 Dose: 2 units Insulin Aspart (Novolog) 10 unit SC AC [facility] Last Admin: 12/14/18 12:30 Dose: 10 unit Insulin Glargine (Lantus) 34 unit SC HS [facility] Last Admin: 12/13/18 23:00 Dose: 34 unit Isosorbide Mononitrate (Imdur Er) 30 mg PO DAILY [facility] Last Admin: 12/14/18 10:04 Dose: 30 mg Ketorolac Tromethamine (Toradol) 15 mg IVP Q6 [facility] Stop: 12/18/18 09:36 Last Admin: 12/14/18 12:58 Dose: 15 mg Metoprolol Tartrate (Lopressor) 50 mg PO DAILY [facility] Last Admin: 12/14/18 10:04 Dose: 50 mg Ondansetron HCl (Zofran Inj) 4 mg IVP Q4H PRN PRN Reason: Nausea/Vomiting Last Admin: 12/05/18 05:01 Dose: 4 mg Topiramate (Topamax) 100 mg PO TID [facility] Last Admin: 12/14/18 10:00 Dose: 100 mg - Labs Labs: 12/14/18 07:18 12/14/18 07:18 PT 11.9 SECONDS (9.7-12.2) 12/03/18 10:54 INR 1.1 12/03/18 10:54 APTT 25 SECONDS (21-34) 12/03/18 10:54
--- NOTE | 2018-12-14 15:13 | CP.PCM.PN ---
Subjective - Date & Time of Evaluation Date of Evaluation: 12/14/18 Time of Evaluation: 15:13 - Subjective Subjective: AFEBRILE, SITTING UP OFFERS NO NEW COMPLAINTS EXCEPT OCCASIONAL COUGH . PAIN BETTER CONTROLLED. LAB; ALL CULTURES TISSUE AND PLEURAL FLUID NEGATIVE TO DATE.. REPEAT vANCO RANDOM 9.2. N 12/14/18 VANCO .TROUGH LEVEL 27.6 HIGH ( VANCO ON HOLD TILL FRIDAY ) CXR 12/13/18-IMPROVED AERATION BILATERAL LUNG BASES. INCREASED RETICULAR MARKINGS RIGHT BASE Objective - Vital Signs/Intake and Output Vital Signs (last 24 hours): Temp Pulse Resp BP Pulse Ox 97.4 F L 93 H 20 168/79 H 100 12/14/18 07:00 12/14/18 07:00 12/14/18 07:00 12/14/18 10:03 12/14/18 07:00 Intake and Output: 12/14/18 12/14/18 06:59 18:59 Output Total 500 Balance -500 - Medications Medications: Current Medications Acetaminophen (Tylenol 325mg Tab) 975 mg PO Q8 [facility] Last Admin: 12/14/18 14:39 Dose: 975 mg Amlodipine Besylate (Norvasc) 5 mg PO DAILY [facility] Last Admin: 12/14/18 10:04 Dose: 5 mg Bupropion HCl (Wellbutrin) 200 mg PO DAILY [facility] Last Admin: 12/14/18 10:04 Dose: 200 mg Dextrose (Glutose 15) 0 gm PO ONCE PRN; Protocol PRN Reason: Hypoglycemia Protocol Diphenhydramine HCl (Benadryl) 25 mg PO TID [facility] Last Admin: 12/14/18 14:40 Dose: 25 mg Docusate Sodium (Colace) 100 mg PO BID [facility] Last Admin: 12/14/18 10:04 Dose: 100 mg Furosemide (Lasix) 40 mg IVP DAILY [facility] Last Admin: 12/14/18 10:03 Dose: 40 mg Glucagon (Glucagen Diagnostic Kit) 0 mg IM STAT PRN; Protocol PRN Reason: Hypoglycemia Protocol Guaifenesin/Dextromethorphan (Robitussin Dm) 5 ml PO Q4H PRN PRN Reason: Cough Last Admin: 12/13/18 23:03 Dose: 5 ml Heparin Sodium (Porcine) (Heparin) 5,000 units SC Q8 [facility] Last Admin: 12/14/18 14:40 Dose: 5,000 units Hydromorphone HCl (Dilaudid) 0.5 mg IVP Q4H PRN PRN Reason: Pain, severe (8-10) Vancomycin/Sodium Chloride (Vancomycin 1 Gm/Ns 200 Ml) 1 gm in 200 mls @ 133.333 mls/hr IVPB Q12H [facility]; Protocol Last Admin: 12/14/18 12:57 Dose: 133.333 mls/hr Ciprofloxacin (Cipro 400mg/200ml Dsw) 400 mg in 200 mls @ 133 mls/hr IVPB Q12H [facility]; Protocol Last Admin: 12/14/18 08:29 Dose: 133 mls/hr Insulin Aspart (Novolog) 0 unit SC ACHS [facility]; Protocol Last Admin: 12/14/18 12:30 Dose: 2 units Insulin Aspart (Novolog) 10 unit SC AC [facility] Last Admin: 12/14/18 12:30 Dose: 10 unit Insulin Glargine (Lantus) 34 unit SC HS [facility] Last Admin: 12/13/18 23:00 Dose: 34 unit Isosorbide Mononitrate (Imdur Er) 30 mg PO DAILY [facility] Last Admin: 12/14/18 10:04 Dose: 30 mg Ketorolac Tromethamine (Toradol) 15 mg IVP Q6 [facility] Stop: 12/18/18 09:36 Last Admin: 12/14/18 12:58 Dose: 15 mg Metoprolol Tartrate (Lopressor) 50 mg PO DAILY [facility] Last Admin: 12/14/18 10:04 Dose: 50 mg Ondansetron HCl (Zofran Inj) 4 mg IVP Q4H PRN PRN Reason: Nausea/Vomiting Last Admin: 12/05/18 05:01 Dose: 4 mg Topiramate (Topamax) 100 mg PO TID [facility] Last Admin: 12/14/18 14:40 Dose: 100 mg - Labs Labs: 12/14/18 07:18 12/14/18 07:18 PT 11.9 SECONDS (9.7-12.2) 12/03/18 10:54 INR 1.1 12/03/18 10:54 APTT 25 SECONDS (21-34) 12/03/18 10:54 - Constitutional Appears: No Acute Distress - Head Exam Head Exam: NORMAL INSPECTION - Eye Exam Eye Exam: EOMI, PERRL - ENT Exam ENT Exam: Normal Oropharynx - Neck Exam Neck Exam: Normal Inspection - Respiratory Exam Respiratory Exam: Decreased Breath Sounds (BASES), NORMAL BREATHING PATTERN (.) - Cardiovascular Exam Cardiovascular Exam: REGULAR RHYTHM, +S1, +S2 - GI/Abdominal Exam GI & Abdominal Exam: Soft, Normal Bowel Sounds - Extremities Exam Extremities Exam: Pedal Edema (1+). absent: Calf Tenderness - Neurological Exam Neurological Exam: Awake, CN II-XII Intact, Oriented x3 - Psychiatric Exam Psychiatric exam: Normal Mood - Skin Skin Exam: Normal Color, Warm Assessment and Plan (1) Empyema Status: Acute (2) Recurrent right pleural effusion Status: Acute (3) Post-thoracotomy pain Status: Acute (4) Sepsis syndrome Status: Resolved (5) DKA (diabetic ketoacidoses) Status: Resolved (6) Insulin dependent diabetes mellitus Status: Chronic (7) Hypertension Status: Chronic - Assessment and Plan (Free Text) Plan: CONTINUE CIPRO 400 MG iv PIGGYBACK EVERY 12 HOURLY 11/18/18. DC IV VANCOMYCIN 1000 MG IVPB Q 12HRLY 11/20 ( ON HOLD SINCE 12/11/18 )(3WKS ) START PO CLEOCIN 300MG PO TID X 10DAYS PO FLORSTAR 250 MG BY MOUTH AT BEDTIM DAILY. PULMONARY TOILET PER SURGERY. PT AT BEDSIDE. WILL DISCUSS WITH PMD DR THAPA.
--- NOTE | 2018-12-14 21:08 | CP.PCM.PN ---
Subjective - Date & Time of Evaluation Date of Evaluation: 12/14/18 Time of Evaluation: 21:05 - Subjective Subjective: Patient with cough, SOB and leg edema. Will increase Lasix 40 mg IV BID. Objective - Vital Signs/Intake and Output Vital Signs (last 24 hours): Temp Pulse Resp BP Pulse Ox 97.7 F 78 20 163/74 H 98 12/14/18 15:00 12/14/18 15:00 12/14/18 15:00 12/14/18 15:00 12/14/18 15:00 Intake and Output: 12/14/18 12/15/18 18:59 06:59 Intake Total 1000 Balance 1000 - Medications Medications: Current Medications Acetaminophen (Tylenol 325mg Tab) 975 mg PO Q8 [facility] Last Admin: 12/14/18 14:39 Dose: 975 mg Amlodipine Besylate (Norvasc) 5 mg PO DAILY [facility] Last Admin: 12/14/18 10:04 Dose: 5 mg Bupropion HCl (Wellbutrin) 200 mg PO DAILY [facility] Last Admin: 12/14/18 10:04 Dose: 200 mg Dextrose (Glutose 15) 0 gm PO ONCE PRN; Protocol PRN Reason: Hypoglycemia Protocol Diphenhydramine HCl (Benadryl) 25 mg PO TID [facility] Last Admin: 12/14/18 17:43 Dose: 25 mg Docusate Sodium (Colace) 100 mg PO BID [facility] Last Admin: 12/14/18 17:43 Dose: 100 mg Furosemide (Lasix) 40 mg IVP DAILY [facility] Last Admin: 12/14/18 10:03 Dose: 40 mg Glucagon (Glucagen Diagnostic Kit) 0 mg IM STAT PRN; Protocol PRN Reason: Hypoglycemia Protocol Guaifenesin/Dextromethorphan (Robitussin Dm) 5 ml PO Q4H PRN PRN Reason: Cough Last Admin: 12/13/18 23:03 Dose: 5 ml Heparin Sodium (Porcine) (Heparin) 5,000 units SC Q8 [facility] Last Admin: 12/14/18 14:40 Dose: 5,000 units Hydromorphone HCl (Dilaudid) 0.5 mg IVP Q4H PRN PRN Reason: Pain, severe (8-10) Vancomycin/Sodium Chloride (Vancomycin 1 Gm/Ns 200 Ml) 1 gm in 200 mls @ 133.333 mls/hr IVPB Q12H [facility]; Protocol Last Admin: 12/14/18 12:57 Dose: 133.333 mls/hr Ciprofloxacin (Cipro 400mg/200ml Dsw) 400 mg in 200 mls @ 133 mls/hr IVPB Q12H [facility]; Protocol Last Admin: 12/14/18 08:29 Dose: 133 mls/hr Insulin Aspart (Novolog) 12 unit SC AC [facility] Last Admin: 12/14/18 17:44 Dose: 12 units Insulin Aspart (Novolog) 0 unit SC ACHS [facility]; Protocol Last Admin: 12/14/18 16:17 Dose: Not Given Insulin Glargine (Lantus) 40 unit SC HS [facility] Isosorbide Mononitrate (Imdur Er) 30 mg PO DAILY [facility] Last Admin: 12/14/18 10:04 Dose: 30 mg Ketorolac Tromethamine (Toradol) 15 mg IVP Q6 [facility] Stop: 12/18/18 09:36 Last Admin: 12/14/18 17:43 Dose: 15 mg Metoprolol Tartrate (Lopressor) 50 mg PO DAILY [facility] Last Admin: 12/14/18 10:04 Dose: 50 mg Ondansetron HCl (Zofran Inj) 4 mg IVP Q4H PRN PRN Reason: Nausea/Vomiting Last Admin: 12/05/18 05:01 Dose: 4 mg Topiramate (Topamax) 100 mg PO TID [facility] Last Admin: 12/14/18 17:43 Dose: 100 mg - Labs Labs: 12/14/18 07:18 12/14/18 07:18 PT 11.9 SECONDS (9.7-12.2) 12/03/18 10:54 INR 1.1 12/03/18 10:54 APTT 25 SECONDS (21-34) 12/03/18 10:54 - Constitutional Appears: No Acute Distress, Chronically Ill - Head Exam Head Exam: NORMAL INSPECTION - Eye Exam Eye Exam: Normal appearance Pupil Exam: NORMAL ACCOMODATION - ENT Exam ENT Exam: Normal Exam - Neck Exam Neck Exam: Normal Inspection - Respiratory Exam Respiratory Exam: Rhonchi Additional comments: Rhonchi bilaterally. - Cardiovascular Exam Cardiovascular Exam: REGULAR RHYTHM - GI/Abdominal Exam GI & Abdominal Exam: Soft, Normal Bowel Sounds - Rectal Exam Rectal Exam: Deferred - Extremities Exam Additional comments: 2+ edema of the lower extremities. - Back Exam Back Exam: NORMAL INSPECTION - Neurological Exam Neurological Exam: Alert, Awake, Oriented x3 - Psychiatric Exam Psychiatric exam: Anxious - Skin Skin Exam: Dry, Intact, Normal Color, Warm Assessment and Plan (1) DKA (diabetic ketoacidoses) Status: Resolved (2) Acute exacerbation of chronic low back pain Status: Chronic (3) Sepsis syndrome Status: Resolved (4) Bilateral bronchopneumonia Status: Acute (5) Recurrent right pleural effusion Status: Acute (6) Acute on chronic diastolic (congestive) heart failure Assessment & Plan: Increase Lasix 40 mg IV BID. Status: Acute
[2018-12-14] MEDS: (Lantus) Insulin Glargine, Recombinant SC SCH ×2 (21:30→21:49)
--- NOTE | 2018-12-15 01:57 | PN ---
DATE: 12/14/2018 LOCATION: Room 565. SUBJECTIVE: This is a 68-year-old female with recent uncontrolled type 2 insulin requiring diabetes who had a recent right hemothorax and underwent a right lower lobe effusion evacuation and decortication and is now being followed closely for metabolic management. Her glycemic levels are fluctuating as noted today and glucose levels have ranged from 202 to 216 and 238 mg/dL. LABORATORY DATA: Her chemistries showed a BUN of 17, sodium 136, potassium 3.6, chloride 108, CO2 of 24, glucose 222, and creatinine 1.1. ASSESSMENT AND PLAN: So at this time, we will modify once again her basal and bolus insulin regimen and increase the Lantus to 40 units subcu at bedtime daily to start tonight. We will also modify her prandial insulin with NovoLog to be given as 12 units subcutaneous three times a day before meals to start today. We will modify the coverage scale to await hypoglycemia and detailed orders have been given. We will obtain serial chemistries and supplement accordingly as needed. We will follow. Elly Hannah MD
[2018-12-15] MEDS: (Novolog) Insulin Aspart, Recombinant 100 u/ml 10 ml vial SC SCH ×7 (07:48→22:30)
[2018-12-15] MEDS: Ciprofloxacin 400mg/200ml D5W 400 MG/200 ML BAG IVPB SCH ×2 (09:15→21:38)
[2018-12-15 11:48] LABS: ALB/GLOB RATIO 0.8 (1.0-2.1); ALBUMIN 2.3 g/dL (3.5-5.0); ALT/SGPT 19 U/L (9-52); AST/SGOT 40 U/L (14-36); BLOOD UREA NITROGEN 16 mg/dL (7-17); GFR NON-AFRICAN AMERICAN > 60
[2018-12-15] MEDS: guaiFENesin DM 100 mg-10 mg/5 ml UD PO PRN (18:58)
[2018-12-15] MEDS ORDERED: Potassium Chloride 20 mEq ER Tab PO STA (19:54)
[2018-12-15] MEDS: Saccharomyces Boulardi 250 mg Cap PO SCH (21:40)
[2018-12-15] MEDS: Magnesium Oxide 400 mg Tab UD PO SCH (21:41)
[2018-12-15] MEDS: (Lantus) Insulin Glargine, Recombinant SC SCH (22:50)
--- NOTE | 2018-12-15 23:28 | CP.PCM.PN ---
Subjective - Date & Time of Evaluation Date of Evaluation: 12/15/18 Time of Evaluation: 18:45 - Subjective Subjective: Patient less SOB, and less cough, but still with edema of both lower legs. Objective - Vital Signs/Intake and Output Vital Signs (last 24 hours): Temp Pulse Resp BP Pulse Ox 97.5 F L 79 18 124/69 99 12/15/18 16:31 12/15/18 16:31 12/15/18 16:31 12/15/18 16:31 12/15/18 16:31 - Medications Medications: Current Medications Acetaminophen (Tylenol 325mg Tab) 975 mg PO Q8 [facility] Last Admin: 12/15/18 21:43 Dose: Not Given Amlodipine Besylate (Norvasc) 5 mg PO DAILY [facility] Last Admin: 12/15/18 09:16 Dose: 5 mg Bupropion HCl (Wellbutrin) 200 mg PO DAILY [facility] Last Admin: 12/15/18 09:16 Dose: 200 mg Clindamycin HCl (Cleocin) 300 mg PO TID [facility]; Protocol Stop: 12/25/18 10:01 Last Admin: 12/15/18 13:01 Dose: 300 mg Dextrose (Glutose 15) 0 gm PO ONCE PRN; Protocol PRN Reason: Hypoglycemia Protocol Diphenhydramine HCl (Benadryl) 25 mg PO TID [facility] Last Admin: 12/15/18 13:01 Dose: 25 mg Docusate Sodium (Colace) 100 mg PO BID [facility] Last Admin: 12/15/18 09:16 Dose: 100 mg Furosemide (Lasix) 40 mg IVP BID [facility] Last Admin: 12/15/18 09:15 Dose: 40 mg Glucagon (Glucagen Diagnostic Kit) 0 mg IM STAT PRN; Protocol PRN Reason: Hypoglycemia Protocol Guaifenesin/Dextromethorphan (Robitussin Dm) 5 ml PO Q4H PRN PRN Reason: Cough Last Admin: 12/15/18 18:58 Dose: 5 ml Heparin Sodium (Porcine) (Heparin) 5,000 units SC Q8 [facility] Last Admin: 12/15/18 21:42 Dose: 5,000 units Hydromorphone HCl (Dilaudid) 0.5 mg IVP Q4H PRN PRN Reason: Pain, severe (8-10) Last Admin: 12/15/18 13:01 Dose: 0.5 mg Ciprofloxacin (Cipro 400mg/200ml Dsw) 400 mg in 200 mls @ 133 mls/hr IVPB Q12H [facility]; Protocol Last Admin: 12/15/18 21:38 Dose: 133 mls/hr Insulin Aspart (Novolog) 12 unit SC AC [facility] Last Admin: 12/15/18 16:40 Dose: Not Given Insulin Aspart (Novolog) 0 unit SC ACHS [facility]; Protocol Last Admin: 12/15/18 16:40 Dose: Not Given Insulin Glargine (Lantus) 40 unit SC [facility] Last Admin: 12/14/18 21:49 Dose: Not Given Isosorbide Mononitrate (Imdur Er) 30 mg PO DAILY [facility] Last Admin: 12/15/18 09:16 Dose: 30 mg Magnesium Oxide (Mag-Ox) 400 mg PO BID [facility] Last Admin: 12/15/18 21:41 Dose: 400 mg Metoprolol Tartrate (Lopressor) 50 mg PO DAILY [facility] Last Admin: 12/15/18 09:16 Dose: 50 mg Ondansetron HCl (Zofran Inj) 4 mg IVP Q4H PRN PRN Reason: Nausea/Vomiting Last Admin: 12/05/18 05:01 Dose: 4 mg Potassium Chloride (K-Dur 20 Meq Er Tab) 20 meq PO DAILY [facility] Saccharomyces Boulardii (Florastor) 250 mg PO [facility] Last Admin: 12/15/18 21:40 Dose: 250 mg Topiramate (Topamax) 100 mg PO TID [facility] Last Admin: 12/15/18 13:00 Dose: 100 mg - Labs Labs: 12/14/18 07:18 12/15/18 11:01 PT 11.9 SECONDS (9.7-12.2) 12/03/18 10:54 INR 1.1 12/03/18 10:54 APTT 25 SECONDS (21-34) 12/03/18 10:54 - Constitutional Appears: No Acute Distress, Chronically Ill - Head Exam Head Exam: NORMAL INSPECTION - Eye Exam Eye Exam: Normal appearance - ENT Exam ENT Exam: Normal Exam - Neck Exam Neck Exam: Normal Inspection - Respiratory Exam Respiratory Exam: Rhonchi Additional comments: Decreased rhonchi bilaterally. - Cardiovascular Exam Cardiovascular Exam: REGULAR RHYTHM - GI/Abdominal Exam GI & Abdominal Exam: Soft, Normal Bowel Sounds - Rectal Exam Rectal Exam: Deferred - Extremities Exam Extremities Exam: Pedal Edema Additional comments: 2+ edema of the lower extremities. - Back Exam Back Exam: NORMAL INSPECTION - Neurological Exam Neurological Exam: Alert, Awake, Oriented x3 - Psychiatric Exam Psychiatric exam: Anxious - Skin Skin Exam: Dry, Normal Color, Warm Assessment and Plan (1) DKA (diabetic ketoacidoses) Status: Resolved (2) Acute exacerbation of chronic low back pain Status: Chronic (3) Sepsis syndrome Status: Resolved (4) Bilateral bronchopneumonia Status: Acute (5) Recurrent right pleural effusion Status: Resolved (6) Acute on chronic diastolic (congestive) heart failure Assessment & Plan: To continue Lasix 40 mg IV BID. Status: Acute
--- NOTE | 2018-12-16 01:02 | PN ---
DATE: 12/15/2018 ENDOCRINOLOGY FOLLOWUP NOTE LOCATION: Room 565. SUBJECTIVE: This is a 68-year-old female with recent uncontrolled type 2 insulin-requiring diabetes, now being followed closely for metabolic management. She recently underwent a thoracotomy and decortication and evacuation of a right pleural effusion which she tolerated fairly well at this time. Her glycemic levels are still fluctuating as noted, and the glucose values overnight have ranged from 89-230 and 209 mg per dL. Her chemistries showed a BUN of 16, sodium 136, potassium 3.3, chloride 108, CO2 of 22, glucose 231, and creatinine 0.9. So at this time, we will modify once again her basal and bolus insulin regimen and increase the NovoLog to 12 units t.i.d. before meals as ordered. We will titrate her basal insulin as Lantus to be given as 40 units subcu at bedtime daily as given. We will obtain serial chemistries and supplement accordingly as needed. We will follow. Elly Hannah MD
[2018-12-16] MEDS: (Novolog) Insulin Aspart, Recombinant 100 u/ml 10 ml vial SC SCH ×7 (08:45→22:26)
[2018-12-16] MEDS: Ciprofloxacin 400mg/200ml D5W 400 MG/200 ML BAG IVPB SCH ×2 (08:47→22:12)
[2018-12-16] MEDS: Magnesium Oxide 400 mg Tab UD PO SCH ×2 (10:09→18:13)
[2018-12-16] MEDS: Potassium Chloride 20 mEq ER Tab PO SCH (10:09)
[2018-12-16 12:04] LABS: ALB/GLOB RATIO 0.9 (1.0-2.1); ALBUMIN 2.7 g/dL (3.5-5.0); ALT/SGPT 17 U/L (9-52); AST/SGOT 33 U/L (14-36); BLOOD UREA NITROGEN 15 mg/dL (7-17); CALCIUM 8.4 mg/dl (8.6-10.4); GFR NON-AFRICAN AMERICAN > 60
--- NOTE | 2018-12-16 12:07 | CP.PCM.PN ---
Subjective - Date & Time of Evaluation Date of Evaluation: 12/15/18 Time of Evaluation: 12:07 - Subjective Subjective: LATE ENTRY 12/15/18 AFEBRILE, SITTING UP ON COMODE NO NEW COMPLAINTS EXCEPT OCCASIONAL COUGH . PAIN BETTER CONTROLLED. Objective - Vital Signs/Intake and Output Vital Signs (last 24 hours): Temp Pulse Resp BP Pulse Ox 98.1 F 111 H 20 148/72 98 12/16/18 07:00 12/16/18 07:00 12/16/18 07:00 12/16/18 10:09 12/16/18 07:00 - Medications Medications: Current Medications Acetaminophen (Tylenol 325mg Tab) 975 mg PO Q8 [facility] Last Admin: 12/16/18 06:51 Dose: Not Given Amlodipine Besylate (Norvasc) 5 mg PO DAILY [facility] Last Admin: 12/16/18 10:09 Dose: 5 mg Bupropion HCl (Wellbutrin) 200 mg PO DAILY [facility] Last Admin: 12/16/18 10:11 Dose: 200 mg Clindamycin HCl (Cleocin) 300 mg PO TID [facility]; Protocol Stop: 12/25/18 10:01 Last Admin: 12/16/18 10:10 Dose: 300 mg Dextrose (Glutose 15) 0 gm PO ONCE PRN; Protocol PRN Reason: Hypoglycemia Protocol Diphenhydramine HCl (Benadryl) 25 mg PO TID [facility] Last Admin: 12/16/18 10:10 Dose: 25 mg Docusate Sodium (Colace) 100 mg PO BID [facility] Last Admin: 12/16/18 10:09 Dose: 100 mg Furosemide (Lasix) 40 mg IVP BID [facility] Last Admin: 12/16/18 10:09 Dose: 40 mg Glucagon (Glucagen Diagnostic Kit) 0 mg IM STAT PRN; Protocol PRN Reason: Hypoglycemia Protocol Guaifenesin/Dextromethorphan (Robitussin Dm) 5 ml PO Q4H PRN PRN Reason: Cough Last Admin: 12/15/18 18:58 Dose: 5 ml Heparin Sodium (Porcine) (Heparin) 5,000 units SC Q8 [facility] Last Admin: 12/16/18 06:54 Dose: 5,000 units Hydromorphone HCl (Dilaudid) 0.5 mg IVP Q4H PRN PRN Reason: Pain, moderate (4-7) Ciprofloxacin (Cipro 400mg/200ml Dsw) 400 mg in 200 mls @ 133 mls/hr IVPB Q12H [facility]; Protocol Last Admin: 12/16/18 08:47 Dose: 133 mls/hr Insulin Aspart (Novolog) 12 unit SC AC [facility] Last Admin: 12/16/18 08:45 Dose: 12 units Insulin Aspart (Novolog) 0 unit SC ACHS [facility]; Protocol Last Admin: 12/16/18 08:46 Dose: 4 units Insulin Glargine (Lantus) 40 unit SC [facility] Last Admin: 12/15/18 22:50 Dose: 40 unit Isosorbide Mononitrate (Imdur Er) 30 mg PO DAILY [facility] Last Admin: 12/16/18 10:09 Dose: 30 mg Magnesium Oxide (Mag-Ox) 400 mg PO BID [facility] Last Admin: 12/16/18 10:09 Dose: 400 mg Metoprolol Tartrate (Lopressor) 50 mg PO DAILY [facility] Last Admin: 12/16/18 10:10 Dose: 50 mg Ondansetron HCl (Zofran Inj) 4 mg IVP Q4H PRN PRN Reason: Nausea/Vomiting Last Admin: 12/05/18 05:01 Dose: 4 mg Potassium Chloride (K-Dur 20 Meq Er Tab) 20 meq PO DAILY [facility] Last Admin: 12/16/18 10:09 Dose: 20 meq Saccharomyces Boulardii (Florastor) 250 mg PO [facility] Last Admin: 12/15/18 21:40 Dose: 250 mg Topiramate (Topamax) 100 mg PO TID [facility] Last Admin: 12/16/18 10:11 Dose: 100 mg - Labs Labs: 12/14/18 07:18 12/16/18 11:35 PT 11.9 SECONDS (9.7-12.2) 12/03/18 10:54 INR 1.1 12/03/18 10:54 APTT 25 SECONDS (21-34) 12/03/18 10:54 - Constitutional Appears: No Acute Distress - Head Exam Head Exam: NORMAL INSPECTION - Eye Exam Eye Exam: EOMI, PERRL - ENT Exam ENT Exam: Mucous Membranes Moist - Neck Exam Neck Exam: Normal Inspection - Respiratory Exam Respiratory Exam: Decreased Breath Sounds, NORMAL BREATHING PATTERN - Cardiovascular Exam Cardiovascular Exam: REGULAR RHYTHM, +S1, +S2 - GI/Abdominal Exam GI & Abdominal Exam: Soft, Normal Bowel Sounds - Extremities Exam Extremities Exam: Pedal Edema (1+). absent: Calf Tenderness, Tenderness - Neurological Exam Neurological Exam: Awake, CN II-XII Intact, Oriented x3, Reflexes Normal - Psychiatric Exam Psychiatric exam: Normal Mood - Skin Skin Exam: Normal Color, Warm (POST OPERATIV SCAR +VE BEATRIS +VE ERYTHEMA SUTURE LINE.) Assessment and Plan (1) Empyema Status: Acute (2) Recurrent right pleural effusion Status: Resolved (3) Post-thoracotomy pain Status: Acute (4) Sepsis syndrome Status: Resolved (5) DKA (diabetic ketoacidoses) Status: Resolved (6) Insulin dependent diabetes mellitus Status: Chronic (7) Hypertension Status: Chronic - Assessment and Plan (Free Text) Plan: CONTINUE CIPRO 400 MG iv PIGGYBACK EVERY 12 HOURLY 11/18/18. ON PO CLEOCIN 300MG PO TID X 10DAYS 12/14/18 PO FLORSTAR 250 MG BY MOUTH AT BEDTIM DAILY. PULMONARY TOILET PER SURGERY. PT AT BEDSIDE. F/U CXR PER SURGERY.
[2018-12-16] MEDS: HYDROmorphone 0.5 mg/0.5 ml ISec IVP PRN ×2 (12:35→19:51)
[2018-12-16] MEDS: guaiFENesin DM 100 mg-10 mg/5 ml UD PO PRN ×2 (13:56→18:15)
--- NOTE | 2018-12-16 19:38 | CP.PCM.PN ---
Subjective - Date & Time of Evaluation Date of Evaluation: 12/16/18 Time of Evaluation: 19:36 - Subjective Subjective: Patient less SOB and afebrile, but still with edema of the lower legs. Dr Kenyon Arellano suggests to discharge the patient to [facility] rehab where she is on staff and can follow the patient there. Objective - Vital Signs/Intake and Output Vital Signs (last 24 hours): Temp Pulse Resp BP Pulse Ox 97.2 F L 88 20 155/74 H 97 12/16/18 16:41 12/16/18 16:41 12/16/18 16:41 12/16/18 18:15 12/16/18 16:41 Intake and Output: 12/16/18 12/17/18 18:59 06:59 Intake Total 560 Balance 560 - Medications Medications: Current Medications Acetaminophen (Tylenol 325mg Tab) 975 mg PO Q8 [facility] Last Admin: 12/16/18 15:07 Dose: Not Given Amlodipine Besylate (Norvasc) 5 mg PO DAILY [facility] Last Admin: 12/16/18 10:09 Dose: 5 mg Bupropion HCl (Wellbutrin) 200 mg PO DAILY [facility] Last Admin: 12/16/18 10:11 Dose: 200 mg Clindamycin HCl (Cleocin) 300 mg PO TID [facility]; Protocol Stop: 12/25/18 10:01 Last Admin: 12/16/18 18:14 Dose: 300 mg Dextrose (Glutose 15) 0 gm PO ONCE PRN; Protocol PRN Reason: Hypoglycemia Protocol Diphenhydramine HCl (Benadryl) 25 mg PO TID [facility] Last Admin: 12/16/18 18:14 Dose: 25 mg Docusate Sodium (Colace) 100 mg PO BID [facility] Last Admin: 12/16/18 18:14 Dose: 100 mg Furosemide (Lasix) 40 mg IVP BID [facility] Last Admin: 12/16/18 18:15 Dose: 40 mg Glucagon (Glucagen Diagnostic Kit) 0 mg IM STAT PRN; Protocol PRN Reason: Hypoglycemia Protocol Guaifenesin/Dextromethorphan (Robitussin Dm) 5 ml PO Q4H PRN PRN Reason: Cough Last Admin: 12/16/18 18:15 Dose: 5 ml Heparin Sodium (Porcine) (Heparin) 5,000 units SC Q8 [facility] Last Admin: 12/16/18 13:55 Dose: 5,000 units Hydromorphone HCl (Dilaudid) 0.5 mg IVP Q4H PRN PRN Reason: Pain, moderate (4-7) Last Admin: 12/16/18 12:35 Dose: 0.5 mg Ciprofloxacin (Cipro 400mg/200ml Dsw) 400 mg in 200 mls @ 133 mls/hr IVPB Q12H [facility]; Protocol Last Admin: 12/16/18 08:47 Dose: 133 mls/hr Insulin Aspart (Novolog) 0 unit SC ACHS [facility]; Protocol Last Admin: 12/16/18 16:47 Dose: Not Given Insulin Aspart (Novolog) 14 unit SC AC [facility] Last Admin: 12/16/18 16:47 Dose: Not Given Insulin Glargine (Lantus) 44 unit SC HS [facility] Isosorbide Mononitrate (Imdur Er) 30 mg PO DAILY [facility] Last Admin: 12/16/18 10:09 Dose: 30 mg Magnesium Oxide (Mag-Ox) 400 mg PO BID [facility] Last Admin: 12/16/18 18:13 Dose: 400 mg Metoprolol Tartrate (Lopressor) 50 mg PO DAILY [facility] Last Admin: 12/16/18 10:10 Dose: 50 mg Ondansetron HCl (Zofran Inj) 4 mg IVP Q4H PRN PRN Reason: Nausea/Vomiting Last Admin: 12/05/18 05:01 Dose: 4 mg Potassium Chloride (K-Dur 20 Meq Er Tab) 20 meq PO DAILY [facility] Last Admin: 12/16/18 10:09 Dose: 20 meq Saccharomyces Boulardii (Florastor) 250 mg PO [facility] Last Admin: 12/15/18 21:40 Dose: 250 mg Topiramate (Topamax) 100 mg PO TID [facility] Last Admin: 12/16/18 18:13 Dose: 100 mg - Labs Labs: 12/14/18 07:18 12/16/18 11:35 PT 11.9 SECONDS (9.7-12.2) 12/03/18 10:54 INR 1.1 12/03/18 10:54 APTT 25 SECONDS (21-34) 12/03/18 10:54 - Constitutional Appears: No Acute Distress, Chronically Ill - Head Exam Head Exam: NORMAL INSPECTION - Eye Exam Eye Exam: Normal appearance Pupil Exam: NORMAL ACCOMODATION - ENT Exam ENT Exam: Normal Exam - Neck Exam Neck Exam: Normal Inspection - Respiratory Exam Respiratory Exam: Rhonchi Additional comments: Rhonchi bilaterally. - Cardiovascular Exam Cardiovascular Exam: REGULAR RHYTHM - GI/Abdominal Exam GI & Abdominal Exam: Soft, Normal Bowel Sounds - Rectal Exam Rectal Exam: Deferred - Extremities Exam Extremities Exam: Pedal Edema Additional comments: 2+ edema of the lower legs. - Neurological Exam Neurological Exam: Alert, Awake, Oriented x3 - Psychiatric Exam Psychiatric exam: Anxious - Skin Skin Exam: Dry, Intact, Normal Color, Warm Assessment and Plan (1) DKA (diabetic ketoacidoses) Status: Resolved (2) Acute exacerbation of chronic low back pain Status: Chronic (3) Sepsis syndrome Status: Resolved (4) Bilateral bronchopneumonia Status: Acute (5) Recurrent right pleural effusion Status: Resolved (6) Acute on chronic diastolic (congestive) heart failure Assessment & Plan: To continue IV Lasix. Status: Acute
--- NOTE | 2018-12-16 20:43 | CP.PCM.PN ---
Subjective - Date & Time of Evaluation Date of Evaluation: 12/16/18 Time of Evaluation: 20:43 - Subjective Subjective: AFEBRILE, c/o dyspneaon exertion B// EDEMA LE OCCASIONAL COUGH . PAIN BETTER CONTROLLED. LABS REVIEWED ; CASE DISCUSSED WITH STAFF/PMD. PT. CAN BE SWITCHED TO PO ABX CIPRO 500MG PO BID X 10 DAYS 12/16/18 CLEOCIN 300MG PO TID X 10 DAYS 12/16/18 Objective - Vital Signs/Intake and Output Vital Signs (last 24 hours): Temp Pulse Resp BP Pulse Ox 97.2 F L 88 20 155/74 H 97 12/16/18 16:41 12/16/18 16:41 12/16/18 16:41 12/16/18 18:15 12/16/18 16:41 Intake and Output: 12/16/18 12/17/18 18:59 06:59 Intake Total 560 Balance 560 - Medications Medications: Current Medications Acetaminophen (Tylenol 325mg Tab) 975 mg PO Q8 [facility] Last Admin: 12/16/18 15:07 Dose: Not Given Amlodipine Besylate (Norvasc) 5 mg PO DAILY [facility] Last Admin: 12/16/18 10:09 Dose: 5 mg Bupropion HCl (Wellbutrin) 200 mg PO DAILY [facility] Last Admin: 12/16/18 10:11 Dose: 200 mg Clindamycin HCl (Cleocin) 300 mg PO TID [facility]; Protocol Stop: 12/25/18 10:01 Last Admin: 12/16/18 18:14 Dose: 300 mg Dextrose (Glutose 15) 0 gm PO ONCE PRN; Protocol PRN Reason: Hypoglycemia Protocol Diphenhydramine HCl (Benadryl) 25 mg PO TID [facility] Last Admin: 12/16/18 18:14 Dose: 25 mg Docusate Sodium (Colace) 100 mg PO BID [facility] Last Admin: 12/16/18 18:14 Dose: 100 mg Furosemide (Lasix) 40 mg IVP BID [facility] Last Admin: 12/16/18 18:15 Dose: 40 mg Glucagon (Glucagen Diagnostic Kit) 0 mg IM STAT PRN; Protocol PRN Reason: Hypoglycemia Protocol Guaifenesin/Dextromethorphan (Robitussin Dm) 5 ml PO Q4H PRN PRN Reason: Cough Last Admin: 12/16/18 18:15 Dose: 5 ml Heparin Sodium (Porcine) (Heparin) 5,000 units SC Q8 [facility] Last Admin: 12/16/18 13:55 Dose: 5,000 units Hydromorphone HCl (Dilaudid) 0.5 mg IVP Q4H PRN PRN Reason: Pain, moderate (4-7) Last Admin: 12/16/18 19:51 Dose: 0.5 mg Ciprofloxacin (Cipro 400mg/200ml Dsw) 400 mg in 200 mls @ 133 mls/hr IVPB Q12H [facility]; Protocol Last Admin: 12/16/18 08:47 Dose: 133 mls/hr Insulin Aspart (Novolog) 0 unit SC ACHS [facility]; Protocol Last Admin: 12/16/18 16:47 Dose: Not Given Insulin Aspart (Novolog) 14 unit SC AC [facility] Last Admin: 12/16/18 16:47 Dose: Not Given Insulin Glargine (Lantus) 44 unit SC HS [facility] Isosorbide Mononitrate (Imdur Er) 30 mg PO DAILY [facility] Last Admin: 12/16/18 10:09 Dose: 30 mg Magnesium Oxide (Mag-Ox) 400 mg PO BID [facility] Last Admin: 12/16/18 18:13 Dose: 400 mg Metoprolol Tartrate (Lopressor) 50 mg PO DAILY [facility] Last Admin: 12/16/18 10:10 Dose: 50 mg Ondansetron HCl (Zofran Inj) 4 mg IVP Q4H PRN PRN Reason: Nausea/Vomiting Last Admin: 12/05/18 05:01 Dose: 4 mg Potassium Chloride (K-Dur 20 Meq Er Tab) 20 meq PO DAILY [facility] Last Admin: 12/16/18 10:09 Dose: 20 meq Saccharomyces Boulardii (Florastor) 250 mg PO HS [facility] Last Admin: 12/15/18 21:40 Dose: 250 mg Topiramate (Topamax) 100 mg PO TID [facility] Last Admin: 12/16/18 18:13 Dose: 100 mg - Labs Labs: 12/14/18 07:18 12/16/18 11:35 PT 11.9 SECONDS (9.7-12.2) 12/03/18 10:54 INR 1.1 12/03/18 10:54 APTT 25 SECONDS (21-34) 12/03/18 10:54 - Constitutional Appears: No Acute Distress - Head Exam Head Exam: NORMAL INSPECTION - Eye Exam Eye Exam: EOMI, PERRL - ENT Exam ENT Exam: Mucous Membranes Moist, Normal Oropharynx - Neck Exam Neck Exam: Normal Inspection - Respiratory Exam Respiratory Exam: Decreased Breath Sounds, Rhonchi (B/L RHONCHI SCATTERRED), NORMAL BREATHING PATTERN - Cardiovascular Exam Cardiovascular Exam: REGULAR RHYTHM, +S1, +S2 - GI/Abdominal Exam GI & Abdominal Exam: Soft, Normal Bowel Sounds - Extremities Exam Extremities Exam: Pedal Edema (2+). absent: Calf Tenderness, Tenderness - Neurological Exam Neurological Exam: Awake, CN II-XII Intact, Oriented x3 - Psychiatric Exam Psychiatric exam: Normal Mood - Skin Skin Exam: Normal Color, Warm Assessment and Plan (1) Empyema Status: Acute (2) Recurrent right pleural effusion Status: Resolved (3) Post-thoracotomy pain Status: Acute (4) Sepsis syndrome Status: Resolved (5) DKA (diabetic ketoacidoses) Status: Resolved (6) Insulin dependent diabetes mellitus Status: Chronic (7) Hypertension Status: Chronic - Assessment and Plan (Free Text) Plan: DC IV CIPRO 400 MG iv PIGGYBACK EVERY 12 HOURLY 11/18/18. START PO CIPRO 500MG PO BID X 10DAYS CONTINUE PO CLEOCIN 300MG PO TID X 10DAYS PO FLORSTAR 250 MG BY MOUTH AT BEDTIM DAILY. PULMONARY TOILET PER SURGERY. DIURESIS PER PMD. F/U LFTS/RENAL FUNCTION CLOSELY WHILE ON ABX.
[2018-12-16] MEDS: Saccharomyces Boulardi 250 mg Cap PO SCH (22:11)
[2018-12-16] MEDS: (Lantus) Insulin Glargine, Recombinant SC SCH (22:26)
--- NOTE | 2018-12-17 02:35 | PN ---
DATE: 12/16/2018 ENDOCRINOLOGY FOLLOWUP NOTE LOCATION: Room 565. SUBJECTIVE: This is a 68-year-old female with recent uncontrolled type 2 insulin-requiring diabetes with persistent hyperglycemic accelerations as noted overnight and today with glucose values ranging from 276 to 326 and 350 mg/dL. LABORATORY DATA: Her chemistry shows a BUN of 16, sodium 135, potassium 3.8, chloride 106, CO2 of 21, glucose 363, and creatinine 0.9. ASSESSMENT AND PLAN: So at this time, we will modify once again her basal and bolus insulin regimen and increase the NovoLog to 14 units t.i.d. before meals to start today as ordered. We will also titrate her basal insulin with Lantus to be given as 44 units subcutaneous at bedtime daily as given. We will titrate incrementally as indicated to optimize metabolic control. We will follow. Elly Hannah MD
[2018-12-17 08:09] LABS: ALB/GLOB RATIO 0.8 (1.0-2.1); ALBUMIN 2.6 g/dL (3.5-5.0); ALT/SGPT 22 U/L (9-52); AST/SGOT 33 U/L (14-36); BLOOD UREA NITROGEN 14 mg/dL (7-17); CALCIUM 8.1 mg/dl (8.6-10.4); GFR NON-AFRICAN AMERICAN > 60
[2018-12-17] MEDS: (Novolog) Insulin Aspart, Recombinant 100 u/ml 10 ml vial SC SCH ×7 (08:39→21:10)
[2018-12-17] MEDS: Potassium Chloride 20 mEq ER Tab PO SCH (12:18)
[2018-12-17] MEDS: Magnesium Oxide 400 mg Tab UD PO SCH ×2 (12:20→17:06)
[2018-12-17] MEDS: Ciprofloxacin 400mg/200ml D5W 400 MG/200 ML BAG IVPB SCH ×3 (12:22→21:50)
--- NOTE | 2018-12-17 12:33 | CP.PCM.PN ---
Subjective - Date & Time of Evaluation Date of Evaluation: 12/17/18 Time of Evaluation: 12:32 - Subjective Subjective: AFEBRILE, DENIES SOB B/ EDEMA LE OCCASIONAL COUGH . PAIN BETTER CONTROLLED. Objective - Vital Signs/Intake and Output Vital Signs (last 24 hours): Temp Pulse Resp BP Pulse Ox 97.8 F 101 H 20 171/87 H 96 12/17/18 08:09 12/17/18 08:09 12/17/18 08:09 12/17/18 12:20 12/17/18 08:09 Intake and Output: 12/17/18 12/17/18 06:59 18:59 Intake Total 640 Output Total 950 Balance -310 - Medications Medications: Current Medications Acetaminophen (Tylenol 325mg Tab) 975 mg PO Q8 [facility] Last Admin: 12/17/18 05:54 Dose: 975 mg Amlodipine Besylate (Norvasc) 5 mg PO DAILY [facility] Last Admin: 12/17/18 12:18 Dose: 5 mg Bupropion HCl (Wellbutrin) 200 mg PO DAILY [facility] Last Admin: 12/17/18 12:19 Dose: 200 mg Clindamycin HCl (Cleocin) 300 mg PO TID [facility]; Protocol Stop: 12/25/18 10:01 Last Admin: 12/17/18 12:21 Dose: 300 mg Dextrose (Glutose 15) 0 gm PO ONCE PRN; Protocol PRN Reason: Hypoglycemia Protocol Diphenhydramine HCl (Benadryl) 25 mg PO TID [facility] Last Admin: 12/17/18 12:19 Dose: 25 mg Docusate Sodium (Colace) 100 mg PO BID [facility] Last Admin: 12/17/18 12:19 Dose: 100 mg Furosemide (Lasix) 40 mg IVP BID [facility] Last Admin: 12/17/18 12:20 Dose: 40 mg Glucagon (Glucagen Diagnostic Kit) 0 mg IM STAT PRN; Protocol PRN Reason: Hypoglycemia Protocol Guaifenesin/Dextromethorphan (Robitussin Dm) 5 ml PO Q4H PRN PRN Reason: Cough Last Admin: 12/16/18 18:15 Dose: 5 ml Heparin Sodium (Porcine) (Heparin) 5,000 units SC Q8 [facility] Last Admin: 12/17/18 05:55 Dose: 5,000 units Hydromorphone HCl (Dilaudid) 0.5 mg IVP Q4H PRN PRN Reason: Pain, moderate (4-7) Last Admin: 12/16/18 19:51 Dose: 0.5 mg Ciprofloxacin (Cipro 400mg/200ml Dsw) 400 mg in 200 mls @ 133 mls/hr IVPB Q12H [facility]; Protocol Last Admin: 12/17/18 12:22 Dose: 133 mls/hr Insulin Aspart (Novolog) 0 unit SC ACHS [facility]; Protocol Last Admin: 12/17/18 12:30 Dose: Not Given Insulin Aspart (Novolog) 14 unit SC AC [facility] Last Admin: 12/17/18 08:39 Dose: 14 units Insulin Glargine (Lantus) 44 unit SC HS [facility] Last Admin: 12/16/18 22:26 Dose: Not Given Isosorbide Mononitrate (Imdur Er) 30 mg PO DAILY [facility] Last Admin: 12/17/18 12:19 Dose: 30 mg Magnesium Oxide (Mag-Ox) 400 mg PO BID [facility] Last Admin: 12/17/18 12:20 Dose: 400 mg Metoprolol Tartrate (Lopressor) 50 mg PO DAILY [facility] Last Admin: 12/17/18 12:18 Dose: 50 mg Ondansetron HCl (Zofran Inj) 4 mg IVP Q4H PRN PRN Reason: Nausea/Vomiting Last Admin: 12/05/18 05:01 Dose: 4 mg Potassium Chloride (K-Dur 20 Meq Er Tab) 20 meq PO DAILY [facility] Last Admin: 12/17/18 12:18 Dose: 20 meq Saccharomyces Boulardii (Florastor) 250 mg PO [facility] Last Admin: 12/16/18 22:11 Dose: 250 mg Topiramate (Topamax) 100 mg PO TID [facility] Last Admin: 12/17/18 12:19 Dose: 100 mg - Labs Labs: 12/14/18 07:18 12/17/18 07:03 PT 11.9 SECONDS (9.7-12.2) 12/03/18 10:54 INR 1.1 12/03/18 10:54 APTT 25 SECONDS (21-34) 12/03/18 10:54 Assessment and Plan (1) Empyema Status: Acute (2) Recurrent right pleural effusion Status: Resolved (3) Post-thoracotomy pain Status: Acute (4) Sepsis syndrome Status: Resolved (5) DKA (diabetic ketoacidoses) Status: Resolved (6) Insulin dependent diabetes mellitus Status: Chronic (7) Hypertension Status: Chronic
[2018-12-17] MEDS: HYDROmorphone 0.5 mg/0.5 ml ISec IVP PRN (12:34)
--- NOTE | 2018-12-17 15:28 | PCM.HF ---
Heart Failure Core Measure - Heart Failure Ejection Fraction: 40 % or Greater BLANCA Inhibitor Prescribed: No Contraindication/Reason for not providing: ef>45 Beta-Barbara Prescribed: Metoprolol Succinate Angiotensin II Receptor Barbara Prescribed: No Contraindication/Reason for not providing: ef<>45 AnticoagulationTherapy for Atrial Fibrillation/Atrialflutter: No Contraindication/Reason for not providing: no hx of a fib Aldosterone Antagonist Prescribed: No Contraindication/Reason for not providing: ef>45 Hydralazine Nitrate Prescribed: No Contraindication/Reason for not providing: on calcium channel Implantable Cardioverter Defibrillator Therapy: No Contraindication/Reason for not providing: ef>45 Cardiac Resynchronization Therapy Prescribed: No Contraindication/Reason for not providing: ef>45 - Follow up Will be discharged to: [facility] ([facility]) Follow Up Date (must be within 7 days from discharge): 12/21/18 Follow Up Time: 17:00
[2018-12-17 15:42] VITALS: PULSE 86; RESP 18; TEMP 98.1; O2SAT 97
[2018-12-17] MEDS ORDERED: Influenza Vaccine 60 mcg/0.5 mL SYR (4YR UP) IM ONE (16:40)
--- NOTE | 2018-12-17 16:44 | CP.PCM.PN ---
Subjective - Date & Time of Evaluation Date of Evaluation: 12/17/18 Time of Evaluation: 16:42 - Subjective Subjective: Patient less SOB, with no cough, but with edema of the lower legs. Afebrile. Objective - Vital Signs/Intake and Output Vital Signs (last 24 hours): Temp Pulse Resp BP Pulse Ox 98.1 F 86 18 148/73 97 12/17/18 15:00 12/17/18 15:00 12/17/18 15:00 12/17/18 15:00 12/17/18 15:00 Intake and Output: 12/17/18 12/17/18 06:59 18:59 Intake Total 640 Output Total 950 Balance -310 - Medications Medications: Current Medications Acetaminophen (Tylenol 325mg Tab) 975 mg PO Q8 [facility] Last Admin: 12/17/18 14:49 Dose: 975 mg Amlodipine Besylate (Norvasc) 5 mg PO DAILY [facility] Last Admin: 12/17/18 12:18 Dose: 5 mg Bupropion HCl (Wellbutrin) 200 mg PO DAILY [facility] Last Admin: 12/17/18 12:19 Dose: 200 mg Clindamycin HCl (Cleocin) 300 mg PO TID [facility]; Protocol Stop: 12/25/18 10:01 Last Admin: 12/17/18 14:49 Dose: 300 mg Dextrose (Glutose 15) 0 gm PO ONCE PRN; Protocol PRN Reason: Hypoglycemia Protocol Diphenhydramine HCl (Benadryl) 25 mg PO TID [facility] Last Admin: 12/17/18 14:50 Dose: 25 mg Docusate Sodium (Colace) 100 mg PO BID [facility] Last Admin: 12/17/18 12:19 Dose: 100 mg Furosemide (Lasix) 40 mg IVP BID [facility] Last Admin: 12/17/18 12:20 Dose: 40 mg Glucagon (Glucagen Diagnostic Kit) 0 mg IM STAT PRN; Protocol PRN Reason: Hypoglycemia Protocol Guaifenesin/Dextromethorphan (Robitussin Dm) 5 ml PO Q4H PRN PRN Reason: Cough Last Admin: 12/16/18 18:15 Dose: 5 ml Heparin Sodium (Porcine) (Heparin) 5,000 units SC Q8 [facility] Last Admin: 12/17/18 14:49 Dose: 5,000 units Hydromorphone HCl (Dilaudid) 0.5 mg IVP Q4H PRN PRN Reason: Pain, moderate (4-7) Last Admin: 12/17/18 12:34 Dose: 0.5 mg Ciprofloxacin (Cipro 400mg/200ml Dsw) 400 mg in 200 mls @ 133 mls/hr IVPB Q12H [facility]; Protocol Last Admin: 12/17/18 12:22 Dose: 133 mls/hr Influenza Virus Vaccine (Flucelvax Quad [id number] Syr) 60 mcg IM .ONCE ONE Stop: 12/17/18 16:41 Insulin Aspart (Novolog) 0 unit SC ACHS [facility]; Protocol Last Admin: 12/17/18 16:40 Dose: Not Given Insulin Aspart (Novolog) 14 unit SC AC [facility] Last Admin: 12/17/18 16:41 Dose: Not Given Insulin Glargine (Lantus) 44 unit SC [facility] Last Admin: 12/16/18 22:26 Dose: Not Given Isosorbide Mononitrate (Imdur Er) 30 mg PO DAILY [facility] Last Admin: 12/17/18 12:19 Dose: 30 mg Magnesium Oxide (Mag-Ox) 400 mg PO BID [facility] Last Admin: 12/17/18 12:20 Dose: 400 mg Metoprolol Tartrate (Lopressor) 50 mg PO DAILY [facility] Last Admin: 12/17/18 12:18 Dose: 50 mg Ondansetron HCl (Zofran Inj) 4 mg IVP Q4H PRN PRN Reason: Nausea/Vomiting Last Admin: 12/05/18 05:01 Dose: 4 mg Potassium Chloride (K-Dur 20 Meq Er Tab) 20 meq PO DAILY [facility] Last Admin: 12/17/18 12:18 Dose: 20 meq Saccharomyces Boulardii (Florastor) 250 mg PO [facility] Last Admin: 12/16/18 22:11 Dose: 250 mg Topiramate (Topamax) 100 mg PO TID [facility] Last Admin: 12/17/18 14:49 Dose: 100 mg - Labs Labs: 12/14/18 07:18 12/17/18 07:03 PT 11.9 SECONDS (9.7-12.2) 12/03/18 10:54 INR 1.1 12/03/18 10:54 APTT 25 SECONDS (21-34) 12/03/18 10:54 - Constitutional Appears: Chronically Ill - Head Exam Head Exam: NORMAL INSPECTION - Eye Exam Eye Exam: Normal appearance Pupil Exam: NORMAL ACCOMODATION - ENT Exam ENT Exam: Normal Exam - Neck Exam Neck Exam: Normal Inspection - Respiratory Exam Respiratory Exam: Rhonchi Additional comments: Few rhonchi bibasilarly. - GI/Abdominal Exam GI & Abdominal Exam: Rigid, Normal Bowel Sounds - Rectal Exam Rectal Exam: Deferred - Extremities Exam Extremities Exam: Pedal Edema Additional comments: 1+ edema of the lower extremities. No tenderness, no erythema. - Back Exam Back Exam: NORMAL INSPECTION - Neurological Exam Neurological Exam: Alert, Awake, Oriented x3 - Psychiatric Exam Psychiatric exam: Anxious - Skin Skin Exam: Dry, Intact, Normal Color, Warm Assessment and Plan (1) DKA (diabetic ketoacidoses) Status: Resolved (2) Acute exacerbation of chronic low back pain Status: Chronic (3) Sepsis syndrome Status: Resolved (4) Bilateral bronchopneumonia Assessment & Plan: On IV antibiotics. Status: Acute (5) Recurrent right pleural effusion Status: Resolved (6) Acute on chronic diastolic (congestive) heart failure Assessment & Plan: To continue IV Lasix 40 mg BID. Status: Acute
[2018-12-17] MEDS: guaiFENesin DM 100 mg-10 mg/5 ml UD PO PRN (17:06)
[2018-12-17 17:09] VITALS: BP 148/73
[2018-12-17] MEDS: Saccharomyces Boulardi 250 mg Cap PO SCH (21:47)
[2018-12-17] MEDS: (Lantus) Insulin Glargine, Recombinant SC SCH (21:48)
--- NOTE | 2018-12-17 23:02 | PN ---
DATE: 12/17/2018 ENDOCRINOLOGY FOLLOWUP NOTE LOCATION: Room 565. SUBJECTIVE: This is a 68-year-old female with recent uncontrolled type 2 insulin-requiring diabetes, now being followed closely for metabolic management. Her glycemic levels are fluctuating as noted and overnight glucose values have ranged from 153 to 243 and 337 mg/dL. LABORATORY DATA: Her chemistries showed BUN of 14, sodium 135, potassium 4, chloride 107, CO2 of 22, glucose 327, and creatinine 0.8. ASSESSMENT AND PLAN: So at this time, we will continue the same basal and bolus insulin regimen as modified with NovoLog given as 14 units t.i.d, before meals as ordered. We will continue the basal insulin given as Lantus at 44 units subcutaneous at bedtime daily as given. We will titrate incremental as indicated to optimize metabolic control. We will follow. Elly Hannah MD
--- NOTE | 2018-12-21 00:44 | CP.PCM.DIS ---
Provider - Provider Date of Admission: 11/17/18 17:41 Attending physician: Cornell Lynn MD Primary care physician: Cornell Lynn Consults: 11/17/18 17:52 Physician Consult Routine Comment: Consulting Provider: Elly Hannah Consulting Physician: Elly Hannah Reason for Consult: DKA 11/17/18 22:17 Nursing Referral for Wound Care Routine Comment: Physician Instructions: Reason For Exam: Antwan 15 11/18/18 09:48 Infectious Disease Consult Routine Comment: Consulting Provider: Mal Arellano Consulting Physician: Mal Arellano Reason for Consult: elvated wbc and bands 11/28/18 23:46 Physician Consult Routine Comment: Consulting Provider: Ty Marques Consulting Physician: Ty Marques Reason for Consult: Right pleural effusion, r/o empyema 12/14/18 17:17 Social Work Referral Routine Comment: discharge planning Physician Instructions: Reason For Exam: DKA Time Spent in preparation of Discharge (in minutes): 60 Diagnosis - Discharge Diagnosis (1) DKA (diabetic ketoacidoses) Status: Resolved (2) Acute exacerbation of chronic low back pain Status: Chronic (3) Sepsis syndrome Status: Resolved (4) Bilateral bronchopneumonia Status: Acute (5) Recurrent right pleural effusion Status: Resolved (6) Acute on chronic diastolic (congestive) heart failure Status: Acute Hospital Course - Lab Results Lab Results: Micro Results 12/04/18 18:14 Other: Please Indicate Mycobacterial Culture - Preliminary 11/24/18 18:38 Other: Please Indicate Mycobacterial Culture - Preliminary 11/25/18 08:19 Other: Please Indicate Mycobacterial Culture - Preliminary 12/01/18 12:39 Other: Please Indicate Mycobacterial Culture - Preliminary 11/23/18 07:02 Other: Please Indicate Mycobacterial Culture - Preliminary 11/30/18 12:37 Other: Please Indicate Mycobacterial Culture - Preliminary 12/04/18 18:14 Pleural Fluid Fungal Culture - Preliminary NO FUNGUS GROWTH IN 1 WEEK. 12/04/18 18:14 Chest Right Fungal Culture - Preliminary NO FUNGUS GROWTH IN 1 WEEK. 12/01/18 12:39 Other: Please Indicate Fungal Culture - Preliminary NO FUNGUS GROWTH IN 1 WEEK. 12/07/18 17:10 Nose MRSA Culture - Final MRSA NOT DETECTED 12/04/18 18:14 Pleural Fluid Gram Stain - Final 12/04/18 18:14 Pleural Fluid Body Fluid Culture - Final No growth. 12/05/18 01:34 Naris MRSA Culture (Admit) - Final MRSA NOT DETECTED 12/04/18 18:14 Other: Please Indicate Gram Stain - Final 12/04/18 18:14 Other: Please Indicate Tissue Culture - Final No Growth 12/04/18 18:14 Lung Gram Stain - Final 12/04/18 18:14 Lung Tissue Culture - Final No Growth 12/04/18 18:14 Chest Anaerobic Culture - Final No growth. 12/01/18 12:39 Pleural Fluid Gram Stain - Final 12/01/18 12:39 Pleural Fluid Body Fluid Culture - Final No growth. 11/30/18 12:37 Sputum Gram Stain - Final 11/30/18 12:37 Sputum Sputum Culture - Final NORMAL ORAL MAGGIE 11/18/18 11:45 Blood Blood Culture - Final NO GROWTH AFTER 5 DAYS 11/18/18 11:45 Blood Gram Stain - Final TEST NOT PERFORMED 11/18/18 11:15 Blood Blood Culture - Final NO GROWTH AFTER 5 DAYS 11/18/18 11:15 Blood Gram Stain - Final TEST NOT PERFORMED 11/18/18 12:31 Sputum Gram Stain - Final 11/18/18 12:31 Sputum Sputum Culture - Final Staphylococcus Aureus 11/18/18 16:13 Urine Random Urine Culture - Final Beta Hemolytic Strep Group B 11/17/18 22:36 Nose MRSA Culture (Admit) - Final MRSA NOT DETECTED Most Recent Lab Values WBC 7.5 K/uL (4.8-10.8) 12/14/18 07:18 RBC 2.71 Mil/uL (3.80-5.20) L 12/14/18 07:18 Hgb 8.6 g/dL (11.0-16.0) L 12/14/18 07:18 Hct 26.3 % (34.0-47.0) L 12/14/18 07:18 MCV 96.8 fL (81.0-99.0) 12/14/18 07:18 MCH 31.7 pg (27.0-31.0) H 12/14/18 07:18 MCHC 32.8 g/dL (33.0-37.0) L 12/14/18 07:18 RDW 16.9 % (11.5-14.5) H 12/14/18 07:18 Plt Count 174 K/uL (130-400) 12/14/18 07:18 MPV 9.0 fL (7.2-11.7) 12/14/18 07:18 Neut % (Auto) 54.2 % (50.0-75.0) 12/14/18 07:18 Lymph % (Auto) 9.5 % (20.0-40.0) L 12/14/18 07:18 [place] % (Auto) 35.2 % (0.0-10.0) H 12/14/18 07:18 Eos % (Auto) 0.8 % (0.0-4.0) 12/14/18 07:18 Baso % (Auto) 0.3 % (0.0-2.0) 12/14/18 07:18 Neut # (Auto) 4.1 K/uL (1.8-7.0) 12/14/18 07:18 Lymph # (Auto) 0.7 K/uL (1.0-4.3) L 12/14/18 07:18 [place] # (Auto) 2.7 K/uL (0.0-0.8) H 12/14/18 07:18 Eos # (Auto) 0.1 K/uL (0.0-0.7) 12/14/18 07:18 Baso # (Auto) 0.0 K/uL (0.0-0.2) 12/14/18 07:18 Neutrophils % (Manual) 60 % (50-75) 12/14/18 07:18 Band Neutrophils % 4 % (0-2) H 12/12/18 08:24 Lymphocytes % (Manual) 7 % (20-40) L 12/14/18 07:18 Reactive Lymphs % 1 % (0-0) H 12/14/18 07:18 Monocytes % (Manual) 27 % (0-10) H 12/14/18 07:18 Eosinophils % (Manual) 3 % (0-4) 12/14/18 07:18 Myelocytes % 2 % (0-0) H 12/14/18 07:18 Toxic Granulation Present 12/06/18 05:42 Platelet Estimate Normal (NORMAL) 12/14/18 07:18 Large Platelets Present 12/14/18 07:18 Giant Platelets Present 12/05/18 06:07 RBC Morphology Normal 11/30/18 14:02 Polychromasia Slight 12/06/18 05:42 Hypochromasia (manual) Slight 12/14/18 07:18 Poikilocytosis (manual Slight 12/14/18 07:18 Basophilic Stippling Slight 12/05/18 06:07 Anisocytosis (manual) Slight 12/14/18 07:18 Target Cells Slight 12/08/18 11:28 Tear Drop Cells Slight 12/14/18 07:18 Ovalocytes Slight 12/14/18 07:18 Evy Cells Slight 12/12/18 08:24 PT 11.9 SECONDS (9.7-12.2) 12/03/18 10:54 INR 1.1 12/03/18 10:54 APTT 25 SECONDS (21-34) 12/03/18 10:54 Puncture Site Lb 11/18/18 11:08 pCO2 36 mm/Hg (35-45) 11/18/18 11:08 pO2 82 mm/Hg (80-100) 11/18/18 11:08 HCO3 21.8 mmol/L (21-28) 11/18/18 11:08 ABG pH 7.37 (7.35-7.45) 11/18/18 11:08 ABG Total CO2 21.9 mmol/L (22-28) L 11/18/18 11:08 ABG O2 Saturation 98.4 % (95-98) H 11/18/18 11:08 ABG Base Excess -3.9 mmol/L (-2.0-3.0) L 11/18/18 11:08 Peter Test Na 11/18/18 11:08 ABG Potassium 3.9 mmol/L (3.6-5.2) 11/18/18 11:08 VBG pH 7.06 (7.32-7.43) L* 11/17/18 14:00 VBG pCO2 21 mmHg (40-60) L 11/17/18 14:00 VBG HCO3 6.5 mmol/L 11/17/18 14:00 VBG Total CO2 6.5 mmol/L (22-28) L 11/17/18 14:00 VBG O2 Sat (Calc) 86.4 % (40-65) H 11/17/18 14:00 VBG Base Excess -22.8 mmol/L (0.0-2.0) L 11/17/18 14:00 VBG Potassium 4.4 mmol/L (3.6-5.2) 11/17/18 14:00 Sodium 138.0 mmol/l (132-148) 11/18/18 11:08 Chloride 111.0 mmol/L (98-107) H 11/18/18 11:08 Glucose 116 mg/dl (65-105) H 11/18/18 11:08 Lactate 1.2 mmol/L (0.7-2.1) 11/18/18 11:08 Liter Flow 3.0 11/18/18 11:08 Crit Value Called To Dr wesley 11/18/18 11:08 Crit Value Called By Nathanael vargas crt 11/18/18 11:08 Crit Value Read Back Y 11/18/18 11:08 Blood Gas Notified Time 1111 11/18/18 11:08 Sodium 135 mmol/L (132-148) 12/17/18 07:03 Potassium 4.0 mmol/L (3.6-5.2) 12/17/18 07:03 Chloride 107 mmol/L (98-107) 12/17/18 07:03 Carbon Dioxide 22 mmol/L (22-30) 12/17/18 07:03 Anion Gap 10 (10-20) 12/17/18 07:03 BUN 14 mg/dL (7-17) 12/17/18 07:03 Creatinine 0.8 mg/dL (0.7-1.2) 12/17/18 07:03 Est GFR ( Amer) > 60 12/17/18 07:03 Est GFR (Non-Af Amer) > 60 12/17/18 07:03 POC Glucose (mg/dL) 221 mg/dL (65-110) H 12/17/18 20:57 Random Glucose 327 mg/dL (65-105) H 12/17/18 07:03 Hemoglobin A1c 11.2 % (4.2-6.5) H D 11/18/18 05:20 Lactic Acid 1.3 mmol/L (0.7-2.1) 12/06/18 05:42 Calcium 8.1 mg/dl (8.6-10.4) L 12/17/18 07:03 Phosphorus 2.2 mg/dL (2.5-4.5) L 12/17/18 07:03 Magnesium 1.7 mg/dL (1.6-2.3) 12/17/18 07:03 Total Bilirubin 0.4 mg/dL (0.2-1.3) 12/17/18 07:03 Direct Bilirubin 0.0 mg/dL (0.0-0.4) 12/12/18 08:24 AST 33 U/L (14-36) 12/17/18 07:03 ALT 22 U/L (9-52) 12/17/18 07:03 Alkaline Phosphatase 291 U/L (38-126) H 12/17/18 07:03 Total Creatine Kinase 52 U/L (30-135) 11/17/18 17:55 CK-MB (Mass) 2.17 ng/mL (0.0-3.38) 11/17/18 17:55 Troponin I 0.0340 ng/mL (0.00-0.120) 11/21/18 08:49 Total Protein 5.6 g/dL (6.3-8.3) L 12/17/18 07:03 Albumin 2.6 g/dL (3.5-5.0) L 12/17/18 07:03 Globulin 3.0 gm/dL (2.2-3.9) 12/17/18 07:03 Albumin/Globulin Ratio 0.8 (1.0-2.1) L 12/17/18 07:03 Amylase 70 U/L (30-110) 12/04/18 15:45 Lipase 22 U/L (23-300) L 11/20/18 16:57 Procalcitonin 9.02 NG/ML (0.19-0.49) H 11/18/18 11:51 Arterial Blood Potassium 3.9 mmol/L (3.6-5.2) 11/18/18 11:08 Venous Blood Potassium 4.4 mmol/L (3.6-5.2) 11/17/18 14:00 Urine Color [place] (YELLOW) 12/04/18 19:18 Urine Clarity Hazy (Clear) 12/04/18 19:18 Urine pH 5.0 (5.0-8.0) 12/04/18 19:18 Ur Specific [place] 1.025 (1.003-1.030) 12/04/18 19:18 Urine Protein 1+ mg/dL (NEGATIVE) H 12/04/18 19:18 Urine Glucose (UA) Normal mg/dL (Normal) 12/04/18 19:18 Urine Ketones Negative mg/dL (NEGATIVE) 12/04/18 19:18 Urine Blood Negative (NEGATIVE) 12/04/18 19:18 Urine Nitrate Negative (NEGATIVE) 12/04/18 19:18 Urine Bilirubin Negative (NEGATIVE) 12/04/18 19:18 Urine Urobilinogen Normal mg/dL (0.2-1.0) 12/04/18 19:18 Ur Leukocyte Esterase Neg Rosio/uL (Negative) 12/04/18 19:18 Urine WBC (Auto) 11 /hpf (0-5) H 12/04/18 19:18 Urine RBC (Auto) 5 /hpf (0-3) H 12/04/18 19:18 Ur Squamous Epith Cells 2 /hpf (0-5) 12/04/18 19:18 Urine Bacteria Rare (<OCC) 12/04/18 19:18 Hyaline Casts 3-5 /lpf (0-2) H 12/04/18 19:18 Granular Casts (Auto) 2-3 /lpf (0-1) 12/04/18 19:18 Fluid Source Pleural 12/04/18 18:14 Fluid Appearance Bloody (CLEAR) 12/04/18 18:14 Fluid WBC 275.0 /mm3 (0.0-300.0) 12/04/18 18:14 Fluid RBC 339677.0 /mm3 (0.0-0.0) H 12/04/18 18:14 Fluid Tot Cell Count 100 (0-0) H 12/04/18 18:14 Fluid Neutrophils 75.0 % (0-0) H 12/04/18 18:14 Fluid Lymphocytes 23.0 % (0-0) H 12/04/18 18:14 Fld Monocyte/Macrophag 2 % (0-0) H 12/04/18 18:14 Fluid Comment 12/04/18 18:14 Pleural Total Protein 4.4 g/dL 12/04/18 18:14 Pleural LDH 1313 U/L 12/04/18 18:14 Pleural Glucose 101 mg/dL 12/04/18 18:14 Pleural Amylase 30 U/L 12/04/18 18:14 Pleur Adenosine Deamin 35.6 U/L (<9.2) H 12/01/18 12:35 Pleural Fluid CEA 1.6 ng/mL (<10.0) 12/01/18 12:30 Vancomycin Trough 27.6 ug/mL (5.0-10.0) H 12/12/18 10:50 Random Vancomycin 9.2 ug/mL 12/14/18 07:18 B-Hydroxybutyrate 0.37 mM (0.02-0.27) H 11/18/18 11:51 RPR Nonreactive (NONREACTIVE) 12/04/18 15:22 Hepatitis A IgM Ab Negative (NEGATIVE) 12/04/18 15:45 Hep Bs Antigen Negative (NEGATIVE) 12/04/18 15:45 Hep Bs Antibody Indeterminate (NEGATIVE) 12/04/18 15:45 Hep B Core IgM Ab Negative (NEGATIVE) 12/04/18 15:45 Hepatitis C Antibody Negative (NEGATIVE) 12/04/18 15:45 HIV 1&2 Antibody Screen Negative (NEGATIVE) 12/04/18 15:45 TB Test (QFT) Nil 0.01 IU/mL 11/23/18 06:43 TB Test Mitogen - Nil 2.64 IU/mL 11/23/18 06:43 TB Test Antigen - Nil 0.00 IU/mL 11/23/18 06:43 TB Test TB - Nil 0.01 IU/mL 11/23/18 06:43 TB Test (QFT) Negative (Negative) 11/23/18 06:43 Blood Type O POSITIVE 12/04/18 07:48 Antibody Screen Negative 12/04/18 07:48 - Hospital Course Hospital Course: This is a 68 yo Filipina female who was transferred to the ED at [facility] from a subacute rehabilitation center because of an abdominal pain, recurrent vomiting, weakness, low back pain and and a productive cough, loss of weight for the past 2-3 weeks. In the ED, her WBC: 31,000 Na+: 131 K+: 4.8 BUN: 20 creatinine: 1.6 glucose : 608 ABG: PH: 7.006 CO3: 6.5 serum lactate: 24 CXR: no infiltrate. U/A: 2+ ketone 3 +: glucose 2 + Protein. She was hospitalized in ICU with a diagnosis of sepsis, acute DKA. She was given IV hydration, IV Cipro and Vancomycin by Dr Reyes Arellano after urine, blood cultures were done. IV insulin was started by Dr Hannah. The blood glucose improved, DKA resolved. She is known to have an IDDM, a hypertension, a CAD( s/p PCI of the LAD in 2007), s/p CVA, diabetic neuropathy, severe osteoporosis and osteoarthritis with recent compression fracture of L3, a schizophrenia and bipolar disorder. A Ct scan of the chest on 11/21/2017 revealed infiltrates of the RML, KARTHIK, LLL and lingular and a moderate right pleural effusion. The productive cough did not improve. Right chest pain became more severe. A right rib Xray was negative for fracture. A repeated CT scan of the chest revealed a marked increase of the right pleural effusion and right lower lobe atelectsis. A suspicion of right empyema was made. The patient underwent a right thoracentesis on 12/01/2018, but it was unsuccessful because of the the thickness of the right pleural fluid. Dr Marques (thoracic surgeon) was called to perform a right thoracotomy to evacuate the right pleural empyema. The patient underwent a right thoracotomy, decortication with evacuation of retained blood and empyema, and two chest tubes insertion. The patient was monitored postoperatively in ICU then was discharged to telemetry floor. Gradually, the chest tubes were removed, lung infiltrates resolved. Pleural and biopsy were negative for malignancy. Pleural fluid revealed numerous RBC and WBC, but no mycobacteria, no fungi, no bacteria. Pos-operatively, the patient remained dyspneic with a productive cough and edema of the lower legs. She received Lasix IV with improvement of the edema and dyspnea. She was finally discharged on 12/17/2018 to a subacute rehabilitation in a stable condition. In addition to her usual medications for DM, hypertension and depression, she also received Cipro and Lasix. - Date & Time of H&P Date of H&P: 11/18/18 Discharge Exam - Head Exam Head Exam: NORMAL INSPECTION - Eye Exam Eye Exam: Normal appearance Pupil Exam: NORMAL ACCOMODATION - ENT Exam ENT Exam: Normal Exam - Neck Exam Neck exam: Normal Inspection - Respiratory Exam Respiratory Exam: Rhonchi Additional comments: Few rhonchi at both bases. - Cardiovascular Exam Cardiovascular Exam: REGULAR RHYTHM - GI/Abdominal Exam GI & Abdominal Exam: Normal Bowel Sounds, Unremarkable - Rectal Exam Rectal Exam: Deferred - Extremities Exam Extremities exam: pedal edema Additional comments: 1+ edema of the lower legs. - Back Exam Back exam: vertebral tenderness - Neurological Exam Neurological exam: Alert, Oriented x3 - Psychiatric Exam Psychiatric exam: Anxious - Skin Skin Exam: Dry, Intact, Normal Color, Warm Discharge Plan - Discharge Medications Prescriptions: Ciprofloxacin [Cipro] 500 mg PO Q12H 10 Days tab Clindamycin [Cleocin] 300 mg PO TID 10 Days cap Saccharomyces Boulardii [Florastor] 250 mg PO BID 10 Days capsule Furosemide [Lasix] 40 mg PO BID #10 tablet - Follow Up Plan Condition: SERIOUS Disposition: TRANSF TO SNF Instructions: Pleural Effusion (DC), Sepsis, Adult (DC), Diabetic Ketoacidosis (DC) Additional Instructions: PLEASE ADMIT PATIENT UNDER DR. LOPEZ SERVICE. PLEASE CALL DR. LOPEZ UPON PATIENT ARRIVAL TO THE FACILITY PLEASE F/U WITH DR. MARQUES OFFICE IN 1 WEEK - F/U VISIT AND REMOVAL OF BEATRIS- PLEASE CALL AND MAKE APPOINTMENT AND ARRANGE TRANSPORTATION pLEASE CALL DR. ARELLANO ON ID CONSULT CONTINUE CIPRO 500MG PO BID X 10 DAYS CONTINUE CLEOCIN 300MG PO TID X 10 DAYS FLORASTAR 250 MG PO HS X 10 DAYS PLEASE DO CBC, BMP Q FRIDAY Referrals: Elly Hannah MD [Medical Doctor] - Ty Marques MD [Staff Provider] - Mal Arellano MD [Staff Provider] - Cornell Lynn MD [Staff Provider] - Clinical Quality Measures - CQM - Heart Failure Ejection Fraction: 40 % or Greater Left Ventricular Function to be assessed after discharge: No BLANCA Inhibitor Prescribed: No Contraindication/Reason for not providing: Patient is on Losartan Beta-Barbara Prescribed: Metoprolol Succinate Angiotensin II Receptor Barbara Prescribed: Yes AnticoagulationTherapy for Atrial Fibrillation/Atrialflutter: No Contraindication/Reason for not providing: Not indicated Aldosterone Antagonist Prescribed: No Contraindication/Reason for not providing: Not indicated Hydralazine Nitrate Prescribed: No Contraindication/Reason for not providing: Not indicated. Implantable Cardioverter Defibrillator Therapy: No Contraindication/Reason for not providing: Not indicated. Cardiac Resynchronization Therapy Prescribed: No Contraindication/Reason for not providing: Not indicated Will be discharged to: [facility] Facility Follow Up Date (must be within 7 days from discharge): 12/24/18 Follow Up Time: 14:00 - Date & Time of Discharge Summary Date of Discharge Summary: 12/21/18 Time of Discharge Summary: 00:49
== END 2018-12-17 23:44 | DRG 853 ==
LOC: C.ER 14:11 → C.9E 17:41 → C.9I 19:10 → C.3T 11-19 15:59 → C.5S 11-22 00:22 → C.3T 11-22 01:55 → C.6T 11-22 01:56 → C.9P 12-04 19:11 → C.9I 12-04 23:13 → C.5S 12-07 14:47
PROVIDERS: ADMIT Internal Medicine Cardiovascular Disease; ATTEND Internal Medicine Cardiovascular Disease
PROC: 0W993ZZ Drainage of Right Pleural Cavity, Percutaneous Approach (ICD-10-PCS; 2018-12-02)
PROC: BB4BZZZ Ultrasonography of Pleura (ICD-10-PCS; 2018-12-02)
PROC: 0BBF0ZX Excision of Right Lower Lung Lobe, Open Approach, Diagnostic (ICD-10-PCS; 2018-12-04)
PROC: 0BNN0ZZ Release Right Pleura, Open Approach (ICD-10-PCS; 2018-12-04)
PROC: 0BCN0ZZ Extirpation of Matter from Right Pleura, Open Approach (ICD-10-PCS; 2018-12-04)
PROC: 0BBN0ZX Excision of Right Pleura, Open Approach, Diagnostic (ICD-10-PCS; 2018-12-04)
PROC: 0B9N00Z Drainage of Right Pleura with Drainage Device, Open Approach (ICD-10-PCS; 2018-12-04)
PROC: 30233N1 Transfusion of Nonautologous Red Blood Cells into Peripheral Vein, Percutaneous Approach (ICD-10-PCS; 2018-12-04)
PROC: 0BBN0ZZ Excision of Right Pleura, Open Approach (ICD-10-PCS; principal; 2018-12-04 11:00)
PROC: 0BNK0ZZ Release Right Lung, Open Approach (ICD-10-PCS; 2018-12-04 11:00)
DX: A41.9 Sepsis, unspecified organism (principal); E11.10 Type 2 diabetes mellitus with ketoacidosis without coma; J86.9 Pyothorax without fistula; J18.0 Bronchopneumonia, unspecified organism; I50.33 Acute on chronic diastolic (congestive) heart failure; E87.1 Hypo-osmolality and hyponatremia; F20.0 Paranoid schizophrenia; I69.354 Hemiplegia and hemiparesis following cerebral infarction affecting left non-dominant side; D62 Acute posthemorrhagic anemia; J94.2 Hemothorax; J98.11 Atelectasis; M80.88XA Other osteoporosis with current pathological fracture, vertebra(e), initial encounter for fracture; N39.0 Urinary tract infection, site not specified; J94.8 Other specified pleural conditions; E11.319 Type 2 diabetes mellitus with unspecified diabetic retinopathy without macular edema; E11.42 Type 2 diabetes mellitus with diabetic polyneuropathy; E11.51 Type 2 diabetes mellitus with diabetic peripheral angiopathy without gangrene; F41.1 Generalized anxiety disorder; E86.0 Dehydration; I11.0 Hypertensive heart disease with heart failure; I25.10 Atherosclerotic heart disease of native coronary artery without angina pectoris; G89.12 Acute post-thoracotomy pain; E11.649 Type 2 diabetes mellitus with hypoglycemia without coma; J45.909 Unspecified asthma, uncomplicated; F31.9 Bipolar disorder, unspecified; G89.29 Other chronic pain; M54.5 Low back pain; M17.0 Bilateral primary osteoarthritis of knee; M80.08XS Age-related osteoporosis with current pathological fracture, vertebra(e), sequela; E78.5 Hyperlipidemia, unspecified; E78.00 Pure hypercholesterolemia, unspecified; K59.00 Constipation, unspecified; Z79.4 Long term (current) use of insulin; Z87.891 Personal history of nicotine dependence; Z87.440 Personal history of urinary (tract) infections; Z95.5 Presence of coronary angioplasty implant and graft; Z88.0 Allergy status to penicillin; Z90.49 Acquired absence of other specified parts of digestive tract